=== PATIENT | male | born 1970 | race African-American/Black ===

== ENCOUNTER 2020-01-27 16:30 | Emergency (ER) | payer OTHER, SELFPAY ==
[2020-01-27 16:56] VITALS: BP 126/75; PULSE 84; RESP 16; TEMP 36.6; O2SAT 100
--- NOTE | 2020-01-27 16:59 | ED.URI ---
HPI - URI/Sore Throat General Chief Complaint: Upper Respiratory Infection Stated Complaint: cold/cough/runny nose Time Seen by Provider: 01/27/20 17:06 Source: patient and RN notes reviewed Mode of arrival: ambulatory Limitations: no limitations History of Present Illness HPI Narrative: 49-year-old male presents with concern for cough, runny nose, postnasal drainage that started today. He denies fever, aches, chills, sore throat, headache. 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 He denies any recent travel, immunocompromised state, does not live incongruent living. MD elicited complaint: cough Related Data Home Medications Medication Instructions Recorded Confirmed ibuprofen 800 mg PO Q6H PRN 01/27/20 01/27/20 Allergies Allergy/AdvReac Type Severity Reaction Status Date / Time No Known Allergies Allergy Unverified 01/27/20 16:47 Review of Systems Review of Systems: Narrative: CONSTITUTIONAL: Denies malaise, chills, sweats, or fever. EYES: Denies visual changes, redness, or discharge. ENT: Reports rhinorrhea, congestion. Denies sinus pain, otalgia and sore throat. CARDIOVASCULAR: Denies chest pain, palpitations, or edema. RESPIRATORY: Reports cough. Denies dyspnea. GASTROINTESTINAL: Denies abdominal pain, nausea, vomiting, diarrhea SKIN: Denies rash or itching. MUSCULOSKELETAL: Denies myalgia. NEUROLOGIC: Denies headache. All systems reviewed & are unremarkable except as noted in HPI and below PMFSH Social History Social History Gender identity (if verbalized by the patient): Male Comments At time of signature, agree with nursing past medical, surgical, social and family history. There is no relevant family history pertinent to the presenting complaint Exam Narrative: Exam Narrative: GENERAL: Well-appearing, well-nourished, and in no acute distress. HEAD: Normocephalic EYES: PERRLA, conjunctivae clear ENT: Nares clear, turbinates edematous and erythematous, clear discharge. Mucous membranes moist. TM pearly devine with dull light reflex bilaterally; no tragal tenderness. Oropharynx not erythematous without lesions. Tonsils not enlarged and without exudate, no drooling, no hoarseness, no trismus, uvula midline. NECK: Supple. No lymphadenopathy CHEST: Clear to auscultation, breath sounds equal. No wheezing, rhonchi, rales, or stridor. No respiratory distress, speaks in full sentences. HEART: Regular rate and rhythm. No murmur heard. SKIN: Warm, dry, no rash. NEURO: Alert and oriented x3. PSYCH: Normal mood and affect Course Course Emergency Course: Patient is aware of diagnosis, understands and agrees to treatment plan. Anticipatory guidance given. Patient agrees to follow-up as directed and is aware of reasons to seek care at the emergency department. Portions of this record may have been created with voice recognition software Vital Signs Vital signs: Vital Signs Temperature 97.8 F 01/27/20 16:56 Pulse Rate 84 01/27/20 16:56 Respiratory Rate 16 01/27/20 16:56 Blood Pressure 126/75 01/27/20 16:56 Pulse Oximetry 100 01/27/20 16:56 Temperature 97.8 F 01/27/20 16:56 Pulse Rate 84 01/27/20 16:56 Respiratory Rate 16 01/27/20 16:56 Blood Pressure 126/75 01/27/20 16:56 Pulse Oximetry 100 01/27/20 16:56 Reviewed. MDM - URI/Sore Throat MDM Narrative Medical decision making narrative: Differential diagnosis considered: Strep pharyngitis, allergic rhinitis, upper respiratory tract infection, sinusitis, rhinosinusitis, nasopharyngitis. viral pharyngitis, otitis media, otitis externa, pneumonia, bronchitis, viral cough syndrome, viral syndrome, and influenza. Exam findings show no acute concerns or changes; patient is non-toxic appearing and is in no distress. Patient is appropriate for outpatient treatment and follow-up. Critical Care Time Critical Care Time Critical Care Time: No Discharge Plan Discharge Clinical Impression: Upper respiratory infection Qualifiers: URI type
== END 2020-01-27 17:22 | disposition home or self-care (01) ==
PROVIDERS: Emergency Provider Nurse Practitioner
DX: J06.9 Acute upper respiratory infection, unspecified (principal)
CPT/HCPCS: 99213; G0463

== ENCOUNTER 2020-10-13 08:02 | Emergency (ER) | payer OTHER, SELFPAY ==
--- NOTE | ~2020-10-13 | CT_ITS ---
EXAMINATION: CT abdomen pelvis w con DATE: 10/13/2020 09:01 INDICATION: Left-sided abdominal pain for 2 days TECHNIQUE: Computed tomography (CT) of the abdomen and pelvis was performed with 100 cc Omnipaque 350 intravenous contrast. The dose-length product was 877.53 mGy-cm. Automated exposure control and iter ative reconstruction technique were employed. COMPARISON: None. FINDINGS: Lung bases are unremarkable. Heart size normal. No significant vascular abnormality. There are mildly enlarged pelvic lymph nodes along the common and external iliac chains. There is inflammat ion adjacent to the distal descending/proximal sigmoid colon, most likely epiploic appendagitis. Dive rticulitis less favored. Fat-containing periumbilical and umbilical hernias. The gallbladder has an l oculated appearance, possibly normal gallbladder folds. Consider correlation with ultrasound. No defi nite gallstones. Fatty infiltration of the liver. The spleen, pancreas, adrenal glands and right kidney are unremarkab le. Stable partially calcified 9 mm left renal mass, likely benign. Nonobstructive bowel gas pattern. No free air or free fluid. IMPRESSION: 1. Inflammation adjacent to the distal colon, most likely epiploic appendagitis rather than diverticu litis. 2: Enlarged pelvic lymph nodes, nonspecific, although most likely reactive. 3: Multiloculated appearance of the gallbladder which may be due to normal folds. Consider correlatio n with ultrasound. No significant surrounding inflammatory change. Reviewed, dictated and finalized at location B. [facility] IMPRESSION: 1. Inflammation adjacent to the distal colon, most likely epiploic appendagitis rather than diverticulitis. 2: Enlarged pelvic lymph nodes, nonspecific, although most likely reactive. 3: Multiloculated appearance of the gallbladder which may be due to normal fold s. Consider correlation with ultrasound. No significant surrounding inflammator y change.
[2020-10-13 08:13] VITALS: BP 138/85; PULSE 79; RESP 16; TEMP 36.5; O2SAT 100
--- NOTE | 2020-10-13 08:14 | ED.GENADULT ---
HPI - General Adult General Chief complaint: Abdominal Pain Stated complaint: Left Flank Pain Time Seen by Provider: 10/13/20 08:04 Source: RN notes reviewed History of Present Illness HPI narrative: Patient presents emergency department from home for left-sided abdominal pain. Patient states pain began 2 days ago. Pain is located left abdomen does not radiate described as aching in nature. Denies any fevers or chills chest pain shortness of breath nausea vomiting diarrhea or any other symptoms. States he is taken no previous medication for the pain. States nothing makes the pain better or worse Related Data Allergies Allergy/AdvReac Type Severity Reaction Status Date / Time No Known Allergies Allergy Verified 10/13/20 08:25 Review of Systems Review of Systems: Narrative: Gen.: Denies fevers or chills ENT: Denies congestion Respiratory: Denies shortness of breath or cough CV: Denies chest pain or palpitations GI: See HPI denies burning, urgency, frequency or hematuria Musculoskeletal: Denies back pain or muscle pain Neuro: Denies numbness, tingling, weakness or focal weakness Skin: Denies rash Except as documented, all other systems reviewed and negative [facility] Past Medical History Medical History (Updated 10/13/20 @ 09:30 by Garrett Fernandez DO) Patient denies significant medical history Social History Social History (Updated 10/13/20 @ 08:15 by Garrett Fernandez DO) Smoking status: Never smoker Gender identity (if verbalized by the patient): Male Exam Narrative: Exam Narrative: APPEARANCE: No acute distress, nontoxic, resting in bed HEENT: Normocephalic, atraumatic, OMM RESPIRATORY: No respiratory distress, clear to auscultation bilaterally with no rhonchi wheezing or rales CARDIOVASCULAR: RRR s murmur ABDOMINAL: Soft, nondistended, tender palpation in left upper quadrant left lower quadrant no tenderness right upper quadrant right lower quadrant no rebound or guarding MUSCULOSKELETAl: Moves all extremities. No clubbing, cyanosis or edema. NEURO: Awake and alert. Following commands, speech normal, no focal deficits SKIN:: Warm, dry. Normal Color PSYCHIATRIC: Normal affect/mood Course Course Emergency Course: Patient states that they are feeling much better at this time. States abdominal pain has improved. Repeat abdominal exam shows the patient's abdomen to be soft and nontender. Discussed with patient results of workup and diagnosis. Discussed need for follow-up with primary care physician, reasons to return to the emergency department in proper use of medication. Patient understands and agrees to current treatment plan Vital Signs Vital signs: Vital Signs Temperature 97.7 F 10/13/20 08:13 Pulse Rate 79 10/13/20 08:13 Respiratory Rate 16 10/13/20 08:13 Blood Pressure 138/85 10/13/20 08:13 Pulse Oximetry 100 10/13/20 08:13 Temperature 97.7 F 10/13/20 08:13 Pulse Rate 79 10/13/20 08:13 Respiratory Rate 16 10/13/20 08:13 Blood Pressure 138/85 10/13/20 08:13 Pulse Oximetry 100 10/13/20 08:13 Medical Decision Making MDM Narrative Medical decision making narrative: Patient's abdomen is soft without significant pain or signs of surgical abdomen on serial exams. Lab and x-ray evaluations are reviewed and patient is felt to be a reasonable candidate for outpatient management. Patient was instructed as to limitations of x-ray and laboratory evaluation and encouraged to return to ED or primary physician for repeat exam in 12 hours if continued or worsening pain patient with likely epiploic appendagitis however question of diverticulitis will start on short course of antibiotics Vital Signs Vital Signs: Vital Signs Temperature 97.7 F 10/13/20 08:13 Pulse Rate 79 10/13/20 08:13 Respiratory Rate 16 10/13/20 08:13 Blood Pressure 138/85 10/13/20 08:13 Pulse Oximetry 100 10/13/20 08:13 Temperature 97.7 F 10/13/20 08:13 Pulse Rate 79 10/13/20 08:
[2020-10-13 08:28] LABS: Basophils Percent Auto 0.7 % (0.2-1.2); Eosinophils Absolute Auto 0.1 K/mm3 (0-0.3); Eosinophils Percent Auto 2.6 % (0-4.4); Hematocrit 37.4 % (42.0-52.0); Hemoglobin 12.5 g/dL (14.0-18.0); Immature Granulocyte Absolute 0.03 K/mm3 (0.00-0.031); Immature Granulocyte Percent A 0.7 % (0-0.5); Lymphocytes Absolute Auto 2.38 K/mm3 (0.9-3.2); Lymphocytes Percent Auto 52.2 % (18.3-44.2); Mean Corpuscular HGB Conc 33.4 g/dl (32-36); Mean Corpuscular Hemoglobin 27.1 pg (26-34); Mean Platelet Volume 9.2 fl (7.4-10.4); Monocytes Absolute Auto 0.5 K/mm3 (0.1-0.6); Monocytes Percent Auto 10.5 % (2.6-8.5); Neutrophils Absolute Auto 1.5 K/mm3 (1.3-6.7); Neutrophils Percent Auto 33.3 % (45.5-73.1); Platelet Count Result 192 k/mm3 (150-375); Red Blood Count 4.62 M/mm3 (4.6-6.20); Red Cell Distribution Width 12.7 % (11.5-14.5); White Blood Count 4.6 K/mm3 (4.5-10.0)
[2020-10-13] MEDS: KETOROLAC 30 MG/ML VIAL (*BKC) IV PUSH (08:28)
[2020-10-13] MEDS: SODIUM CHLORIDE 0.9% IV 1,000 ML 999 ML IV CONT (08:28)
[2020-10-13 08:36] LABS: Add Urine Microscopic? YES; Appearance Urine Clear (Clear); Bilirubin Urine Negative (Negative); Blood Urine 2+ (Negative); Color Urine Yellow (Yellow); Glucose Urine UA Negative (Negative); Ketones Urine Negative (Negative); Leukocyte Esterase Ur Negative LEU/UL (Negative); Mucus Urine Rare /lpf; Nitrate Urine Negative (Negative); Protein Urine Negative (Negative); Specific Grav Ur 1.019 (1.001-1.035); WBC Urine 0-3 /hpf
[2020-10-13 08:40] LABS: Alanine Aminotransferase 28 U/L (4-50); Albumin Level 4.3 g/dL (3.5-5.1); Alkaline Phosphatase 79 U/L (38-126); Anion Gap 9 mmol/L (8-16); Aspartate Amino Transferase 35 U/L (17-59); Bilirubin,Total 0.3 mg/dL (0.2-1.3); Blood Urea Nitrogen 12 mg/dL (9-20); Calcium 8.9 mg/dL (8.4-10.2); Carbon Dioxide 27 mmol/L (22-30); Chloride 104 mmol/L (98-107); Estimated CRCL calculation 94 ml/min; Estimated Glomerular Filt Rate > 60; Glucose 96 mg/dL (75-110); Lipase 107 U/L (23-300); Potassium 3.6 mmol/L (3.4-5.0); Sodium 140 mmol/L (137-145)
[2020-10-13 08:44] LABS: Atypical Lymphocytes Present; Platelet Estimate Adequate (Adequate)
[2020-10-13 10:18] VITALS: BP 104/79; PULSE 70; RESP 16
[2020-10-13] MEDS: AMOXICILLIN/CLAVULANATE K 875-125 MG TAB 1 TABLET PO (10:18)
== END 2020-10-13 10:13 | disposition home or self-care (01) ==
PROVIDERS: Emergency Provider Emergency Medicine
DX: K63.89 Other specified diseases of intestine (principal)
CPT/HCPCS: 36415; 74177; 80053; 81001; 83690; 85025; 96361; 96374; 99284; A9270; J1885; J7030; Q9967

== ENCOUNTER 2022-06-02 08:53 | Emergency (ER) | payer OTHER, SELFPAY ==
[2022-06-02 09:03] VITALS: BP 122/78; PULSE 72; RESP 16; TEMP 36.9; O2SAT 99
--- NOTE | 2022-06-02 09:15 | ED.NAVMDI ---
HPI - Nausea/Vomiting/Diarrhea General Chief complaint: Nausea/Vomiting/Diarrhea Stated complaint: n/v/d Time Seen by Provider: 06/02/22 09:16 Source: patient Mode of arrival: ambulatory Limitations: no limitations History of Present Illness HPI Narrative: 51-year-old male presents with complaint of nausea vomiting diarrhea, fatigue that started last night while at work. States that he had to leave work early. Is able to keep down liquids. States that he tried to eat dinner last night, something spicy, and it made symptoms worse. Unable to go to work today due to still feeling sick. I would not authorize something that you can give me to help me feel better . Denies abdominal pain. Refusing COVID and influenza testing. All systems reviewed and negative except as noted above. Related Data Allergies Allergy/AdvReac Type Severity Reaction Status Date / Time No Known Allergies Allergy Verified 06/02/22 09:05 Review of Systems Review of Systems: CONSTITUTIONAL: Denies fever, chills, or sweats. EYES: Denies visual changes, redness, or discharge. ENT: Denies rhinorrhea, congestion, sore throat, or otalgia. CARDIOVASCULAR: Denies chest pain, palpitations, or edema. RESPIRATORY: Denies cough or dyspnea. GASTROINTESTINAL: Denies abdominal pain. Reports nausea, vomiting, or diarrhea. GENITOURINARY: Denies dysuria or hematuria. SKIN: Denies rash or itching. MUSCULOSKELETAL: Denies back pain, joint pain, or myalgia. NEUROLOGIC: Denies headache, numbness, or weakness. PSYCHIATRIC: Denies anxiety or depression. All other systems reviewed are negative, except as documented in HPI. PMFSH Past Medical History Medical History (Updated 06/02/22 @ 09:22 by Shanna Sargent NP) Patient denies significant medical history Social History Social History (Updated 10/13/20 @ 08:15 by Garrett Fernandez DO) Smoking status: Never smoker Gender identity (if verbalized by the patient): Male Comments At time of signature, agree with nursing past medical, surgical, social and family history. There is no relevant family history pertinent to the presenting complaint. Exam Narrative: GENERAL: This is a well-nourished, well-developed patient, in no apparent distress. HEAD: normocephalic, atraumatic. EYES: PERRL. Sclera clear/white. Vision is grossly intact. EARS: External ears normal NOSE: External nose normal complaints NECK: Neck supple, non-tender without lymphadenopathy, masses or thyromegaly. CARDIOVASCULAR: Regular rate and rhythm without murmurs, gallops, or rubs. RESPIRATORY: Clear to auscultation. Breath sounds equal bilaterally. No wheezes, rales, or rhonchi. GASTROINTESTINAL: Abdomen soft, non-tender, nondistended. Bowel sounds are active. No hepato-splenomegaly, or palpable masses. No guarding. SKIN: warm, Dry, intact with no suspicious lesions or rash, good texture and turgor. NEURO: awake, alert, and oriented to person, place and time. There were no obvious focal neurologic abnormalities. EXTREMITIES: No joint tenderness, effusion, or edema noted. Course Course Level of Care: Express Care Visit Vital Signs Vital signs: Vital Signs Temperature 36.9 C 06/02/22 09:03 Pulse Rate 72 06/02/22 09:03 Respiratory Rate 16 06/02/22 09:03 Blood Pressure 122/78 06/02/22 09:03 Pulse Oximetry 99 06/02/22 09:03 Oxygen Delivery Room Air 06/02/22 09:03 Temperature 36.9 C 06/02/22 09:03 Pulse Rate 72 06/02/22 09:03 Respiratory Rate 16 06/02/22 09:03 Blood Pressure 122/78 06/02/22 09:03 Pulse Oximetry 99 06/02/22 09:03 Oxygen Delivery Room Air 06/02/22 09:03 Reviewed MDM - Nausea/Vomiting/Diarrhea MDM Narrative Medical decision making narrative: Patient is aware of diagnosis, understands and agrees to treatment plan. Anticipatory guidance given. Patient agrees to follow-up as directed and is aware of reasons to seek care at the emergency department. Portions of this record may
== END 2022-06-02 09:32 | disposition home or self-care (01) ==
PROVIDERS: Emergency Provider Nurse Practitioner Family
DX: A08.4 Viral intestinal infection, unspecified (principal)
CPT/HCPCS: 99213; G0463

== ENCOUNTER 2023-10-31 10:21 | Emergency (ER) | payer OTHER, SELFPAY ==
[2023-10-31 10:33] VITALS: BP 133/78; PULSE 87; RESP 16; TEMP 37.1; O2SAT 98
--- NOTE | 2023-10-31 12:35 | ED.GENADULT ---
HPI - General Adult General Chief complaint: Skin/Abscess/Foreign Body Stated complaint: bite to back/rash Time Seen by Provider: 10/31/23 12:01 History of Present Illness HPI narrative: 52-year-old male presenting emergency department for evaluation of a rash to his left lower back. Patient states that at approximately 4:00 p.m. yesterday he had onset of the back pain. Patient denies any prior history of shingles. Patient states he did have an upper respiratory infection with fever approximately 2 weeks ago. Related Data Home Medications Medication Instructions Recorded Confirmed phentermine 15 mg capsule mg 10/31/23 Allergies Allergy/AdvReac Type Severity Reaction Status Date / Time No Known Allergies Allergy Verified 06/02/22 09:05 Review of Systems Review of Systems: All systems reviewed & are unremarkable except as noted in HPI and below PMFSH Past Medical History Medical History (Updated 10/31/23 @ 12:43 by Harshil Bai MD) Patient denies significant medical history Social History Social History (Updated 10/13/20 @ 08:15 by Garrett Fernandez DO) Smoking status: Never smoker Gender identity (if verbalized by the patient): Male Exam Narrative: APPEARANCE: Well appearing, no pain, no distress, well-nourished. HEAD: normocephalic, atraumatic. EYES: PERRLA/EOMI, conjunctivae clear. NOSE: Normal no drainage EARS:TMS clear with good light reflex. THROAT: Pharynx clear, no exudate. NECK: Supple. No adenopathy, no masses. RESPIRATORY: Airway patent, respirations nonlabored. Clear to auscultation bilaterally, no rales, rhonchi, wheezing. CARDIOVASCULAR: Regular rate and rhythm without murmurs rubs or gallops. ABDOMINAL: Soft, nontender, nondistended, normal bowel sounds MUSCULOSKELETAL: Moves all extremities. Strength/ROM intact, No edema, No calf tenderness. NEURO: Alert. Cranial nerves II through XII intact. Good gait. Good coordination SKIN: Vesicular rash on lumbar spine on the left, rash does not cross the midline to the right. PSYCHIATRIC: Normal affect/mood. Course Course Emergency Course: 52-year-old male presenting to the emergency department for evaluation of a rash his left lumbar spine that radiates to his left flank. Rash is consistent with shingles. Patient was started on antivirals and provided medication for pain control. Patient was updated results of his workup and patient was courage of close follow-up with his primary care physician. All questions and concerns were addressed patient was comfortable with the plan for discharge and close follow-up Vital Signs Vital signs: Vital Signs Temperature 98.7 F 10/31/23 10:33 Pulse Rate 87 10/31/23 10:33 Respiratory Rate 16 10/31/23 10:33 Blood Pressure 133/78 10/31/23 10:33 Pulse Oximetry 98 10/31/23 10:33 Temperature 98.7 F 10/31/23 10:33 Pulse Rate 87 10/31/23 10:33 Respiratory Rate 16 10/31/23 10:33 Blood Pressure 133/78 10/31/23 10:33 Pulse Oximetry 98 10/31/23 10:33 Medical Decision Making Vital Signs Vital Signs: Vital Signs Temperature 98.7 F 10/31/23 10:33 Pulse Rate 87 10/31/23 10:33 Respiratory Rate 16 10/31/23 10:33 Blood Pressure 133/78 10/31/23 10:33 Pulse Oximetry 98 10/31/23 10:33 Temperature 98.7 F 10/31/23 10:33 Pulse Rate 87 10/31/23 10:33 Respiratory Rate 16 10/31/23 10:33 Blood Pressure 133/78 10/31/23 10:33 Pulse Oximetry 98 10/31/23 10:33 Discharge Plan Discharge Clinical Impression: Shingles Patient Disposition: Home, Self-Care Condition: Stable Instructions: Antibiotic Form, Liz[place] (ED) Additional Instructions: Tylenol ibuprofen for pain control. Replace Tylenol with [place] as needed for additional pain control. Antivirals as directed until completed. Have close follow-up with your primary care physician. Prescriptions: New valacyclovir 1 gram tablet 1,000 mg PO Q12H 7 Days Q
[2023-10-31] MEDS: HYDROcodone/acetaminophen (*CRX) 5-325 MG TABLET 1 TAB PO (12:57)
[2023-10-31] MEDS: valACYclovir HCL 500 MG TABLET 1000 MG PO (12:58)
== END 2023-10-31 13:02 | disposition home or self-care (01) ==
PROVIDERS: Emergency Provider Emergency Medicine
DX: B02.9 Zoster without complications (principal)
CPT/HCPCS: 99283; A9270

== ENCOUNTER 2024-11-14 12:25 | Emergency (ER) | payer OTHER, SELFPAY ==
[2024-11-14 12:44] VITALS: BP 127/82; PULSE 98; RESP 16; TEMP 37.1; O2SAT 98
--- NOTE | 2024-11-14 12:50 | ED_ITS ---
HPI - General Adult General Chief complaint: Dental/Oral Stated complaint: allergic reaction to prescription meds Time Seen by Provider: 11/14/24 12:50 Source: patient, RN notes reviewed and old records reviewed Mode of arrival: ambulatory Limitations: no limitations History of Present Illness HPI narrative: Patient presents with complaints of swelling to the bottom lip. Patient reports that he began to feel tingling and pain to the bottom lip yesterday, awakened this morning to find the bottom lip was swollen and had small blisters in clusters. When asked, he does admit that the lip feels very similar to the way that his skin felt when he had shingles. When patient presented, he was worried that he was having an allergic reaction. Patient was prescribed a Z-Eduardo by a different provider yesterday for sinusitis symptoms. He took 1st does last night, 2nd dose this morning. Did not have lip swelling until this morning, so is very concerned that he is having an allergic reaction. He denies any shortness of breath or wheezing. He is able to speak in complete sentences without difficulty there is no swelling to the tongue or the throat. No drooling. Only spot that is swollen is the bottom lip, left side more so than right. He denies any injury or trauma Related Data Home Medications ?Medication ?Instructions ?Recorded ?Confirmed ?Last Taken ?Type phentermine 15 mg capsule mg 10/31/23 Unknown History bictegravir 50 mg-emtricitabine tablet PO 11/14/24 Unknown History 200 mg-tenofovir alafenam 25 mg tablet (Biktarvy) darunavir 800 mg-cobicistat 150 mg tablet 11/14/24 Unknown History tablet (Prezcobix) Allergies Allergy/AdvReac Type Severity Reaction Status Date / Time No Known Allergies Allergy Verified 11/14/24 12:46 Review of Systems Review of Systems: All systems reviewed & are unremarkable except as noted in HPI and below Constitutional: Constitutional: Reports no additional constitutional complaints and Reports headache(s) ENT: Reports system reviewed and no additional complaints, except as documented, Reports nasal congestion, Reports nasal discharge, Reports post nasal drip, Reports sinus pain and Reports sinus pressure Cardiovascular: Cardiovascular: Reports no additional cardiovascular complaints Respiratory: Respiratory: Reports no additional respiratory complaints Gastrointestinal: Gastrointestinal: Reports no additional gastrointestinal complaints PMFSH Past Medical History Medical History Patient denies significant medical history Social History Social History Smoking status: Never smoker Gender identity (if verbalized by the patient): Male Comments At the time of my signature, I reviewed and agree with the nursing past medical, surgical, social, and family history. There is no relevant family history pertinent to the patient complaint. Exam Const: General: cooperative, no acute distress, alert and awake Orie ntation/consciousness: oriented to person, oriented to place and oriented to time HENMT: Head: normal to inspection Mouth: Yes moist mucous membranes, No drooling, Yes lip abnormal (Lower lip swelling, left greater than right. Small vesicles noted) and No tongue abnormal Throat: posterior oropharynx normal Resp: Effort & Inspection: normal respiratory effort and able to speak in complete sentences Auscultation: clear to auscultation bilaterally, no crackles, no rales, no rhonchi and no wheezes Cardio: Palpation: normal PMI Rate: regular rate Rhythm: regular rhythm Heart sounds: S1 normal heart sound present and S2 normal heart sound present Neuro: General: oriented to person, oriented to place and oriented to time Cranial nerves: Yes CN's II-XII intact bilaterally Psych: Appearance: grossly normal Thought process: Normal thought process present Insight: Good insight present (Psych) Judgement: Good judgement present (Psych) Course Course Level of Care: Express Care Visit Vital Signs Vital signs: Vital Signs Temperature 98.7 F 11/14/24 12:44 Pulse Rate 98 11/14/24 12:44 Respiratory Rate 16 11/14/24 12:44 Blood Pressure 127/82 11/14/24 12:44 Pulse Oximetry 98 11/14/24 12:44 Oxygen Delivery Room Air 11/14/24 12:44 Temperature 98.7 F 11/14/24 12:44 Pulse Rate 98 11/14/24 12:44 Respiratory Rate 16 11/14/24 12:44 Blood Pressure 127/82 11/14/24 12:44 Pulse Oximetry 98 11/14/24 12:44 Oxygen Delivery Room Air 11/14/24 12:44 Reviewed Medical Decision Making MDM Narrative Medical decision making narrative: Given clinical presentation, not leaning towards allergic reaction as etiology of symptoms, but cannot completely excluded either. Patient advised to stop azithromycin, will start doxycycline instead. History and exam are more consistent with HSV. Patient is HIV positive and not taking medications as prescribed. He is not in any distress, including respiratory distress. No drooling or stridor. Able to laugh and speaking complete sentences without difficulty. Will prescribe azithromycin. A dose of Benadryl and a dose of Pepcid were given in clinic, patient will be advised to continue this for at least 24 hours or until swelling subsides Discharge instructions reviewed with patient, as well as provided in writing per nursing staff. The instructions also include specific and strict return/GO TO THE ER as well as f/u information. All questions have been answered, and the patient deny any further questions with discharge and discharge plan. Some parts of this dictation were generated by voice recognition software and may contain typographical and/or grammatical inaccuracies. Differential Diagnosis Differential Diagnosis: Allergic reaction, HSV, trauma Medical Records Medical records reviewed: Yes I reviewed the external patient's medical records. Vital Signs Vital Signs: Vital Signs Temperature 98.7 F 11/14/24 12:44 Pulse Rate 98 11/14/24 12:44 Respiratory Rate 16 11/14/24 12:44 Blood Pressure 127/82 11/14/24 12:44 Pulse Oximetry 98 11/14/24 12:44 Oxygen Delivery Room Air 11/14/24 12:44 Temperature 98.7 F 11/14/24 12:44 Pulse Rate 98 11/14/24 12:44 Respiratory Rate 16 11/14/24 12:44 Blood Pressure 127/82 11/14/24 12:44 Pulse Oximetry 98 11/14/24 12:44 Oxygen Delivery Room Air 11/14/24 12:44 reviewed Lab Data Lab results reviewed: Yes I reviewed the patient's lab results. Lab results narrative: reviewed Discharge Plan Discharge Clinical Impression: HSV (herpes simplex virus) infection Patient Disposition: Home, Self-Care Condition: Stable Instructions: Antibiotic Form, Oral Herpes Infection (ED), Allergies (ED) Additional Instructions: Discontinue azithromycin. Start doxycycline. Start Valtrex. Follow with primary care provider. Emergency department for new or worse symptoms. Patient Language: [place] Islander Prescriptions: New valacyclovir [Valtrex] 1 gram tablet 1,000 mg PO Q12H Qty: 20 0RF doxycycline hyclate 100 mg tablet 100 mg PO BID Qty: 14 0RF hydroxyzine HCl 50 mg tablet 50 mg PO TID PRN (Reason: itching) Qty: 20 0RF famotidine [Pepcid] 40 mg tablet 40 mg PO DAILY Qty: 7 0RF No Action Prezcobix 800-150 mg-mg tablet Biktarvy 50-200-25 mg tablet PO phentermine 15 mg capsule hydrocodone-acetaminophen 5-325 mg tablet 1 tablet PO Q12H PRN (Reason: pain) Qty: 14 0RF Follow-up/Referrals: Chilo,Ashanti Lamas MD [Primary Care Provider] - Stand Alone Forms: Work/School Release IP Time of Disposition: 13:18
[2024-11-14] MEDS: diphenhydrAMINE HCl CAP 25 MG CAPSULE 50 MG PO (13:06)
[2024-11-14] MEDS: FAMOTIDINE 20 MG TABLET PO (13:07)
[2024-11-20 15:08] LABS: Source NOT GIVEN
== END 2024-11-14 13:25 | disposition home or self-care (01) ==
PROVIDERS: Emergency Provider Nurse Practitioner Family; PCP Family Medicine
DX: B00.9 Herpesviral infection, unspecified (principal)
CPT/HCPCS: 87140; 87255; 99213; A9270; G0463

== ENCOUNTER 2024-11-15 08:33 | Emergency (ER) | payer OTHER, SELFPAY ==
[2024-11-15 08:39] VITALS: BP 137/88; PULSE 96; RESP 20; TEMP 36.2; O2SAT 98
--- NOTE | 2024-11-15 11:17 | ED.GENADULT ---
HPI - General Adult General Chief complaint: Recheck/Abnormal Lab/Rx Stated complaint: shingles recheck Time Seen by Provider: 11/15/24 11:10 Source: patient and family Mode of arrival: ambulatory Limitations: no limitations History of Present Illness HPI narrative: 54 years old male with history of HIV, came to the ED with his complaining of lips pain mainly of the lower lip and swelling. Patient is telling me that he had flu-like symptoms in the form of body aches, chills, nausea and vomiting and diarrhea started on November 05, 2024, was seen at urgent care 3 days ago and was started on Z-Eduardo, workup yesterday with swallowing lips mainly lower 1, went to urgent care again and was diagnosed of possible shingles and discharged on antibiotic and Valtrex. Came to the ED today telling me that still having pain in his lower lip and slight difficulty swallowing. He denied shortness of breath or chest pain or headache or fever or chills. Related Data Home Medications ?Medication ?Instructions ?Recorded ?Confirmed ?Last Taken ?Type phentermine 15 mg capsule mg 10/31/23 Unknown History bictegravir 50 mg-emtricitabine tablet PO 11/14/24 Unknown History 200 mg-tenofovir alafenam 25 mg tablet (Biktarvy) darunavir 800 mg-cobicistat 150 mg tablet 11/14/24 Unknown History tablet (Prezcobix) Allergies Allergy/AdvReac Type Severity Reaction Status Date / Time azithromycin Allergy Severe Swelling Verified 11/15/24 08:43 of Lip/Tongue/Throat Review of Systems Review of Systems: All systems reviewed & are unremarkable except as noted in HPI and below PMFSH Past Medical History Medical History Patient denies significant medical history Social History Social History Smoking status: Never smoker Gender identity (if verbalized by the patient): Male Exam Narrative: General appearance: Well-developed, well-nourished Skin: Normal color Head: Normocephalic, nontraumatic Eyes: Clear conjunctiva ENT: Oropharynx erythema, ears normal, nose normal swollen lips mainly lower 1, which is red in color, slightly irritated, no blisters, no discharge, normal size tongue, Neck: Supple, nontender Chest and respiratory: Airway patent, no respiratory distress, no accessory muscle use Heart: Regular rate/rhythm Abdomen: Soft, nontender, no organomegaly, quiet bowel sounds Vascular: Normal peripheral pulses, normal capillary refill. Musculoskeletal: Normal range of motion, nontender back Neurologic: Alert and oriented ?3, [employer] is normal as tested, no gross motor deficit Course Vital Signs Vital signs: Vital Signs Temperature 36.2 C L 11/15/24 08:39 Pulse Rate 96 11/15/24 08:39 Respiratory Rate 20 11/15/24 08:39 Blood Pressure 137/88 11/15/24 08:39 Pulse Oximetry 98 11/15/24 08:39 Oxygen Delivery Room Air 11/15/24 08:39 Temperature 36.2 C L 11/15/24 08:39 Pulse Rate 96 11/15/24 08:39 Respiratory Rate 20 11/15/24 08:39 Blood Pressure 137/88 11/15/24 08:39 Pulse Oximetry 98 11/15/24 08:39 Oxygen Delivery Room Air 11/15/24 08:39 Medical Decision Making MDM Narrative Medical decision making narrative: Patient came with swollen lips 1 day after he using Z-Eduardo Vital signs are stable Physical examination as above Differential diagnosis include viral infection, and edema secondary to Z-Eduardo Today patient tested negative for strep, flu, RSV and COVID also tested negative for mono. Patient received epinephrine 0.3 IM then 0.5 IM, Solu-Medrol 125, Benadryl 50 mg IV was significant improvement. Differential Diagnosis Differential Diagnosis: As above Vital Signs Vital Signs: Vital Signs Temperature 36.2 C L 11/15/24 08:39 Pulse Rate 96 11/15/24 08:39 Respiratory Rate 20 11/15/24 08:39 Blood Pressure 137/88 11/15/24 08:39 Pulse Oximetry 98 11/15/24 08:39 Oxygen Delivery Room Air 11/15/24 08:39 Temperature 36.2 C L 11/15/24 08:39 Pulse Rate 96 11/15/24 08:39 Respiratory Rate 20 11/15/24 08:39 Blood Pressure 137/88 11/15/24 08:39 Pulse Oximetry 98 11/15/24 08:39 Oxygen Delivery Room Air 11/15/24 08:39 Critical Care Time Critical Care Time Critical Care Time: No Discharge Plan Discharge Clinical Impression: Angio-edema Patient Disposition: Home, Self-Care Condition: Stable Instructions: Angioedema (ED) Additional Instructions: Return if symptoms are worsening , call your family physician for appointment, take Tylenol as as needed for aches and pain, continue home medications. Do not take zithromycin Patient Language: [place] Prescriptions: New prednisone 20 mg tablet 40 mg PO DAILY 5 Days Qty: 10 0RF No Action Prezcobix 800-150 mg-mg tablet Biktarvy 50-200-25 mg tablet PO valacyclovir [Valtrex] 1 gram tablet 1,000 mg PO Q12H Qty: 20 0RF doxycycline hyclate 100 mg tablet 100 mg PO BID Qty: 14 0RF hydroxyzine HCl 50 mg tablet 50 mg PO TID PRN (Reason: itching) Qty: 20 0RF famotidine [Pepcid] 40 mg tablet 40 mg PO DAILY Qty: 7 0RF phentermine 15 mg capsule hydrocodone-acetaminophen 5-325 mg tablet 1 tablet PO Q12H PRN (Reason: pain) Qty: 14 0RF Follow-up/Referrals: Chilo,Ashanti Lamas MD [Primary Care Provider] -
[2024-11-15] MEDS: methylPREDNISolone SOD SUCC 125 MG VIAL IV PUSH (12:05)
[2024-11-15] MEDS: EPINEPHrine HCL INJ 1 MG/ML AMPUL 0.3 MG IM (12:05)
[2024-11-15] MEDS: diphenhydrAMINE HCl INJ 50 MG/ML VIAL IV PUSH (12:05)
[2024-11-15 12:39] VITALS: BP 148/92; PULSE 103; RESP 18; O2SAT 97
[2024-11-15 12:51] LABS: Strep Group A RT-PCR NOT DETECTED (Negative)
[2024-11-15 13:03] LABS: Influenza A QL RT-PCR Negative (Negative); Influenza B QL RT-PCR Negative (Negative); RSV RNA, RT-PCR Negative (Negative); SARS-CoV-2 RNA PCR Negative (Negative)
[2024-11-15 13:24] VITALS: BP 141/85; PULSE 88; RESP 20; O2SAT 97
[2024-11-15] MEDS: EPINEPHrine HCL INJ 1 MG/ML AMPUL 0.5 MG IM (13:29)
[2024-11-15] MEDS: KETOROLAC 30 MG/ML VIAL (*BKC) IV PUSH (13:30)
[2024-11-15 13:33] LABS: Monoscreen Negative (Negative); Negative Monotest Control Negative (Negative); Positive Monotest Control Positive (Positive)
[2024-11-15 14:02] VITALS: BP 131/88; PULSE 99; RESP 18; O2SAT 98
--- OUTSIDE RECORDS SUMMARY | 2024-11-22 10:49 | XMS_ITS | Encounter Summary ---
Author Organization [facility] Address [address] [place] [address] Care Team Providers Care Page Designer Name Role Phone Unavailable Primary Care Provider Unavailabl e Reason for Visit * Reason Comments Abscess c/o possible boil rt chin x 2 wks. Swelling, purulent drainage. No fever, chills. Encounter Details Date Type Department Care Team (Late st Contact Info) Description 11/29/2011 3:12 PM CINDER MAN - 11/29/2011 3:42 PM CINDER MAN Emergency ER at [facility] [address] [place] [id number] Jelani Brown MD [facility] [address] [facility] [facility] [place] [address] Cellulitis and abscess of face Discharge Disposition: Home or Self Care Social History Tobacco Use Types Packs/Day Years Used Date Smoking Tobacco: Some Days Alcohol Use Standard Drinks/Week Comments No 0 (1 standard drink = 0.6 oz pur e alcohol) Sex and Gender Information Value Date Recorded Sex Assigned at Not on file Gender Identity Not on file Sexual Orientation Not on file documented as of this encounter Last Filed Vital Signs Vital Sign Reading Time Taken Comments Blood Pressure 115/89 11/29/2011 3:20 PM CINDER MAN Pulse 80 11/29/2011 3:20 PM CINDER MAN Temperature 36.6 ??C (97.8 ??F) 11/29/2011 3:20 PM CS T Respiratory Rate 16 11/29/2011 3:20 PM CINDER MAN Oxygen Saturation 99% 11/29/2011 3:20 PM CINDER MAN Inhaled Oxygen Concentration - - Weight 88.5 kg (195 lb) 11/29/2011 3:20 PM CINDER MAN Height 182.9 cm (6') 11/29/2011 3:20 PM CINDER MAN Body Mass Index 26.45 11/29/2011 3:20 PM CINDER MAN documented in this encounter Discharge Instructions * Discharge Instructions* Jelani Brown MD - 11/29/2011 3:25 PM CINDER MAN Cellulitis Cellulitis is an infection of the skin and the tissue beneath it. The area is typically red and tender. It is caused by germs (bacteria) (usually staph or strep) that enter the body through cuts or sores. Cellulitis most commonly occurs in the arms and/or lower legs. HOME CARE INSTRUCTIONS ?? If you are given a prescription for antibiotics (medications which kill germs), take as directeduntil finished. ?? If the infection is on the arm or leg, keep the limb elevated as able. ?? Use a warm cloth several times per day to relieve pain and encourage healing. ?? See your caregiver for a recheck of the infected site in 2 days, or sooner if problems arise. ?? Only take [id number] or prescription medicines for pain, discomfort, or fever as directed by your caregiver. SEEK MEDICAL CARE IF: ?? An oral temperature above 102?? F (38.9?? C) develops, or as your caregiver suggests, not controlled by medication. ?? The area of redness is spreading, there are red streaks coming from the infected site, or if a part of the infection begins to turn dark in color. ?? The joint or bone underneath the infected skin becomes painful after the skin has healed. ?? The infection returns in the same or another area after it seems to have gone away. ?? A boil or bump swells up. This may be an abscess. ?? New, unexplained problems (symptoms) such as pain or fever develop. seek immediate medical care if: ?? You or your child feel drowsy or lethargic. ?? There is vomiting, diarrhea, or generalized malaise with muscle aches and pains. MAKE SURE YOU: ?? Understand these instructions. ?? Will watch your condition. ?? Will get help right away if you are not doing well or get worse. Document Released: 08/08/2006 Document Re-Released: 10/11/2009 ExitCare?? Patient Information ??2009 [employer]. ER MAN documented in this encounter Medications at Time of Discharge Medication Sig Dispensed Refills Start Date End Date doxycycline (VIBRAMYCIN) 100 MG capsule Take 1 Cap by mouth 2 times daily. 14 Cap 0 11/29/2011 01/13/2013 sulfamethoxazole-trimetho prim (BACTRIM DS; SEPTRA DS) 800-160 MG tablet Take 1 Tab by mouth every 12 hours for 7 days. For 7 days. 14 Tab 0 11/29/2011 12/06/2011 documented as of this encounter ED Notes * Jelani Brown MD - 11/29/2011 3:19 PM CST Provider contact with the patient: 11/29/2011 3:19 PM Dashawn Solitario [id number] [facility] EMERGENCY DEPT History Chief Complaint Patient presents with ??? Abscess c/o possible boil rt chin x 2 wks. Swelling, purulent drainage. No fever, chills. 3:19 PM At Bedside HPI Dashawn Solitario is a 41 y.o. male who presents to the ED complaining of a boil to his R-chin for thepast 2 weeks. Since it appeared this area has swollen in size and started to drain pus. The patientdenies any fever, chills, headache, or myalgias. Physician(s): Primary Care Physician - No primary provider on file. No past medical history on file. No past surgical history on file. No family history on file. History Social History ??? Marital Status: N/A Spouse Name: N/A Number of Children: N/A ??? Years of Education: N/A Occupational History ??? Not on file. Social History Main Topics ??? Smoking status: Not on file ??? Smokeless tobacco: Not on file ??? Alcohol Use: Not on file ??? Drug Use: Not on file ??? Sexually Active: Not on file Other Topics Concern ??? Not on file Social History Narrative ??? No narrative on file Review of Systems Review of Systems Constitutional: Negative. Negative for fever and chills. HENT: Negative. Respiratory: Negative. Negative for cough and shortness of breath. Musculoskeletal: Negative. Negative for myalgias. Skin: Negative. Boil to R-chin Neurological: Negative. Negative for dizziness and headaches. All other systems reviewed and are negative. Physical Exam Blood pressure 115/89, pulse 80, temperature 97.8 ??F, resp. rate 16, height 6' (1.829 m), weight 195 lb (88.451 kg), SpO2 99.00%. Physical Exam Nursing note and vitals reviewed. Constitutional: He is oriented to person, place, and time and well-developed, well-nourished, and in no distress. HENT: Head: Normocephalic and atraumatic. Right Ear: External ear normal. Left Ear: External ear normal. Nose: Nose normal. Mouth/Throat: Oropharynx is clear and moist. Eyes: Conjunctivae and EOM are normal. Pupils are equal, round, and reactive to light. Neck: Normal range of motion. Neck supple. No JVD present. Cardiovascular: Normal rate and regular rhythm. Pulmonary/Chest: Effort normal. Abdominal: He exhibits no distension. Musculoskeletal: Normal range of motion. Lymphadenopathy: He has no cervical adenopathy. Neurological: He is alert and oriented to person, place, and time. No cranial nerve deficit. Gait normal. Coordination normal. GCS score is 15. Skin: Skin is warm and dry. 0.5 x 0.5 cm abscess to R-cheek 3 x 2cm abscess to R-chin. Surrounding area of martínez crusting and erythema Psychiatric: Mood, memory, affect and judgment normal. Medications Current Outpatient Prescriptions Medication Sig Dispense Refill ??? doxycycline (VIBRAMYCIN) 100 MG capsule Take 1 Cap by mouth 2 times daily. 14 Cap 0 ??? sulfamethoxazole-trimethoprim (BACTRIM DS; SEPTRA DS) 800-160 MG tablet Take 1 Tab by mouth every 12 hours for 7 days. For 7 days. 14 Tab 0 Procedures Procedures EKG Interpretation Lab Interpretation Oxygen Saturation Interpretation The oxygen saturation level is: 99%. The patient was on Room Air for the saturation measurement. Oxygen saturation interpretation is Normal. No results found for this visit on 11/29/11. ED Course Progress Notes 3:25 PM Patient is feeling better and is comfortable with going home. Wound cultures have been obtained from the larger abscess. I have informed the patient of the current results and diagnosis. I have given instructions regarding the diagnosis as well as any return precautions. Patient has been provided with appropriate follow up instructions. Patient voices his understanding, and all questions and concerns have been addressed. Medical Decision Making I have reviewed the: Nursing Notes and Vitals. I have interpreted the following results: Oxygen Saturation. Clinical Impression Encounter Diagnosis Name Primary? Cellulitis and abscess of face New Prescriptions DOXYCYCLINE (VIBRAMYCIN) 100 MG CAPSULE Take 1 Cap by mouth 2 times daily. SULFAMETHOXAZOLE-TRIMETHOPRIM (BACTRIM DS; SEPTRA DS) 800-160 MG TABLET Take 1 Tab by mouth every 12 hours for 7 days. For 7 days. [facility] [[email or web address]] [address] [facility] [address] Call in 1 day Discharged to Home This note accurately reflects work and decisions made by me. Written by Pieter Miner, acting as scribe for Dr. Brown ER MAN documented in this encounter Miscellaneous Notes * Miscellaneous Scans - Document, Scanned - 12/12/2011 9:31 AM CST ER MAN documented in this encounter Plan of Treatment Not on file documented as of this encounter Procedures Procedure Name Priority Date/Time Associated Diagnosis Comments CULTURE WOUND STAT 11/29/2011 3:25 PM CINDER MAN documented in this encounter Results * CULTURE WOUND (11/29/2011 3:25 PM CINDER MAN) Result [facility] Comment: Final GRAM STAIN No organisms seen. CULTURE Light growth Normal skin marjorie LESION SPECIMEN / Unknown 11/29/2011 3:25 PM CINDER MAN 11/29/2011 3:30 PM CINDER MAN Narrative Resulting Agency Comment Performed By [facility];[address] [facility];[place] [address] Jelani Brown MD LAB - MICROBIOLOGY ORDERABLES [facility] [address] [place] [address] documented in this encounter Visit Diagnoses Diagnosis Cellulitis and abscess of face documented in this encounter
--- OUTSIDE RECORDS SUMMARY | 2024-11-22 10:49 | XMS_ITS | Patient Health Summary ---
Author Organization [facility] Address [address] [place] [address] Care Team Providers Care Buffing Wheel Raker Name Role Phone Pauly Kulkarni Primary [facility] Note from [facility],non-owned Affiliates and Associated Physician Practices is amultiple site organization consisting of ambulatory clinics and hospital sitesin [place], [place], [place] and [place]. This disclosure is being madepursuant to the Care Everywhere program and may not contain all information available regarding this patient. Last updated 18.[facility] Allergies No known active allergies Medications * Be aware that medications may not be up to date on this document. Alwaysverify current medications with the patient. * emtricitabine-tenofovir (TRUVADA) 200-300 MG tablet Take 1 Tab by mouth once daily. Indications: HIV Disease * ritonavir (NORVIR) 100 MG capsule Take 100 mg by mouth once daily. Indications: HIV * didanosine EC (VIDEX EC) 125 MG capsule Take 125 mg by mouth once daily. Indications: HIV * hydrocodone-acetaminophen (NORCO) 5-325 MG tablet(Started 01/15/2013) Take 1 Tab by mouth every 4 hours as needed. * darunavir (PREZISTA) 800 MG tablet(Started 01/15/2013) Take 1 Tab by mouth daily with breakfast. Active Problems Problem Noted Date Diagnosed Date Cellulitis 01/14/2013 Social History Tobacco Use Types Packs/Day Years Used Date Smoking Tobacco: Never Alcohol Use Standard Drinks/Week Comments No 0 (1 standard drink = 0.6 oz pur e alcohol) Sex and Gender Information Value Date Recorded Sex Assigned at Not on file Gender Identity Not on file Sexual Orientation Not on file Last Filed Vital Signs Vital Sign Reading Time Taken Comments Blood Pressure 104/65 01/15/2013 2:28 PM STEAM TABLE WORKER Pulse 76 01/15/2013 2:28 PM STEAM TABLE WORKER Temperature 36.7 ??C (98.1 ??F) 01/15/2013 2:28 PM CS T Respiratory Rate 16 01/15/2013 2:28 PM STEAM TABLE WORKER Oxygen Saturation 97% 01/15/2013 2:28 PM STEAM TABLE WORKER Inhaled Oxygen Concentration - - Weight 99.8 kg (220 lb) 01/13/2013 11:55 AM STEAM TABLE WORKER Height 182.9 cm (6') 01/13/2013 11:55 AM STEAM TABLE WORKER Body Mass Index 29.84 01/13/2013 11:55 AM STEAM TABLE WORKER Procedures * CULTURE WOUND+GRAM STAIN(Performed 01/14/2013) * CULTURE MRSA(Performed 01/14/2013) Performed for Abscess * CT NECK SOFT TISSUE W CONT(Performed 01/13/2013) Performed for Abscess * CULTURE BLOOD(Performed 01/13/2013) * CULTURE BLOOD(Performed 01/13/2013) * COMPREHENSIVE METABOLIC PANEL(Performed 01/13/2013) * CBC W AUTO DIFFERENTIAL(Performed 01/13/2013) * CULTURE WOUND(Performed 11/29/2011) Results * (ABNORMAL) CULTURE WOUND+GRAM STAIN (01/14/2013 2:42 PM STEAM TABLE WORKER) Culture Moderate Growth Staphylococcus aureus(A) 01/17/2013 7:02 AM [facility] Gram Stain Rare White blood cells 01/17/2013 7:02 AM [facility] Gram Stain No organisms seen 013 7:02 AM [facility] Miscellaneous samples (specimen) LESION SPECIMEN / Unknown 01/14/2013 2:42 PM STEAM TABLE WORKER 01/14/2013 2:55 PM STEAM TABLE WORKER Narrative Organism Antibiotic Method Susceptibility Staphylococcus aureus Ciprofloxacin SUNNY <=0.5: Susceptible Staphylococcus aureus Clindamycin SUNNY <=0.25: Susceptible Staphylococcus aureus Erythromycin SUNNY >=8: Resistant Staphylococcus aureus Gentamicin SUNNY <=0.5: Susceptible Staphylococcus aureus Inducible Clindamy jose Resistance SUNNY NEG: - Staphylococcus aureus Levofloxacin SUNNY <=0.12: Susceptible Staphylococcus aureus Linezolid SUNNY 1: Susceptible Staphylococcus aureus Oxacillin SUNNY <=0.25: Susceptible Staphylococcus aureus Tetracycline SUNNY <=1: Susceptible Staphylococcus aureus Trimethoprim-sulfa methoxazo le SUNNY <=10: Susceptible Staphylococcus aureus Vancomycin SUNNY <=0.5: Susceptible Comment:Methicillin suscepti ble Staphylococci are susceptible to oxacillin, nafcillin, cloxacillin,diclozacillin, flucloxacillin, beta lactam/betalactamase inhibitor combinations, cephalosporins including cefazolin and carbapenems. Bret Medina MD LAB - MICROBIOLOGY O RDERABLES Performing Organization Address [facility] Co de Phone Number [facility] [address] * CULTURE MRSA (01/14/2013 5:51 AM STEAM TABLE WORKER) [facility] Culture Negative for MRSA 01/15/2013 2:44 PM STEAM TABLE WORKER [facility] Miscellaneous samples (specimen) SPECIMEN FROM NASAL FOSSAE / Unknown 01/14/2013 5:51 AM STEAM TABLE WORKER 01/14/2013 6:34 AM STEAM TABLE WORKER Sandra Yanez MD LAB - MICROBIOLOGY O ALEX Performing Organization Address [facility] Co de Phone Number [facility] [address] [facility] [address] * CT SOFT TISSUE NECK WITH CONTRAST (01/13/2013 3:06 PM STEAM TABLE WORKER) Anatomical Region Laterality Modality Head Computed Tomogra phy 01/13/2013 3:13 PM STEAM TABLE WORKER Impressions 01/13/2013 3:13 PM STEAM TABLE WORKER EXTENSIVE CELLULITIS OVERLYING THE CHIN AND RIGHT HALF OF THE MANDIBLE MULTIFOCAL LYMPHADENOPATHY WHICH IS PRESUMABLY REACTIVE SPHENOID SINUS DISEASE Narrative 01/13/2013 3:13 [address] TABLE [address] CT neck with intravenous contrast CLINICAL INDICATION: Neck pain, neck swelling TECHNIQUE: Axial CT imaging from the skull base to the lung apices was performed following 80 mL Omnipaque 350 intravenous contrast administration. FINDINGS: There is extensive skin thickening and subcutaneous soft tissue swelling overlying the chin and right half of the mandible compatible with a cellulitis. No definite loculated or drainable fluid collections are seen. Multiple pathologically enlarged lymph nodes are noted in the submental region, submandibular regions, and lower cervical regions. These are presumably reactive. There is no evidence of acute fracture or bone destruction. There is moderate mucosal thickening within the ethmoid air cells. The mastoid air cells are clear. The parapharyngeal fat spaces are symmetric. The tonsillar and peritonsillar soft tissues are unremarkable. Configuration of the vocal cords is normal. The thyroid gland is normal in size. The vascular structures are unremarkable. The lung apices are clear. Procedure Note Ben Medina MD - 01/13/2013 CT neck with intravenous contrast CLINICAL INDICATION: Neck pain, neck swelling TECHNIQUE: Axial CT imaging from the skull base to the lung apices was performed following 80 mL Omnipaque 350 intravenous contrast administration. FINDINGS: There is extensive skin thickening and subcutaneous soft tissue swelling overlying the chin and right half of the mandible compatible with a cellulitis. No definite loculated or drainable fluid collections are seen. Multiple pathologically enlarged lymph nodes are noted in the submental region, submandibular regions, and lower cervical regions. These are presumably reactive. There is no evidence of acute fracture or bone destruction. There is moderate mucosal thickening within the ethmoid air cells. The mastoid air cells are clear. The parapharyngeal fat spaces are symmetric. The tonsillar and peritonsillar soft tissues are unremarkable. Configuration of the vocal cords is normal. The thyroid gland is normal in size. The vascular structures are unremarkable. The lung apices are clear. IMPRESSION EXTENSIVE CELLULITIS OVERLYING THE CHIN AND RIGHT HALF OF THE MANDIBLE MULTIFOCAL LYMPHADENOPATHY WHICH IS PRESUMABLY REACTIVE SPHENOID SINUS DISEASE Rhonda Guerreroi PA-C CT ORDERABLES * CULTURE BLOOD (01/13/2013 2:27 PM STEAM TABLE WORKER) Only the most recent of2 resultswithin the time period is included. Culture No Growth 01/19/2013 6:36 AM CDT [facility] Blood specimen (specimen) PERIPHERAL BLOOD / Unknown 01/13/2013 2:27 PM STEAM TABLE WORKER 01/13/2013 3:21 PM STEAM TABLE WORKER Rhonda Guerreroi PA-C LAB - MICROBIOLOGY ORDERABLES [facility] [address] [place] [address], [facility] * (ABNORMAL) CBC W AUTO DIFFERENTIAL (01/13/2013 1:39 PM STEAM TABLE WORKER) [facility] WBC 5.5 4.4 - 10.7 x10^9/L 01/13/2013 2:01 PM [facility] RBC 4.59 3.80 - 5.40 x10^12/L 01/13/2013 2:01 PM [facility] Hemoglobin 13.1 12.0 - 17.6 g/dL 01/13/2013 2:01 PM [facility] Hematocrit 37.9 35.2 - 51.7 % 01/13/2013 2:01 PM [facility] MCV 82.6 80.7 - 98.3 fl 01/13/2013 2:01 PM [facility] MCH 28.5 26.7 - 34.0 pg 01/13/2013 2:01 PM [facility] MCHC 34.6 30.8 - 35.9 gm/dL 01/13/2013 2:01 PM [facility] Platelet Count 232 153 - 416 x10^9/L 01/13/2013 2:01 PM [facility] RDW-CV 13.1 12.1 - 14.9 % 01/13/2013 2:01 PM [facility] Neutrophils % 43(L) 44 - 73 % 01/13/2013 2:01 PM [facility] Lymphocytes % 42 20 - 43 % 01/13/2013 2:01 PM [facility] Monocytes % 9 5 - 13 % 01/13/2013 2:01 PM [facility] Eosinophils % 6 0 - 6 % 01/13/2013 2:01 PM [facility] Basophils % 0 0 - 2 % 01/13/2013 2:01 PM [facility] Immature Granulocytes 0.2 0 - 1 % 01/13/2013 2:01 PM [facility] Neutrophil Absolute 2.39 x10^9/L 01/13/2013 2:01 PM [facility] Lymphocytes Absolute 2.31 1.07 - 3.94 x10^9/L 01/13/2013 2:01 PM [facility] Monocytes Absolute 0.47 0.26 - 1.07 x10^9/L 01/13/2013 2:01 PM [facility] Eosinophils Absolute 0.31 0 - 0.47 x10^9/L 01/13/2013 2:01 PM [facility] Basophils Absolute 0.02 0 - 0.08 x10^9/L 01/13/2013 2:01 PM [facility] Immature Granulocytes Absolute 0.01 0.00 - 0.06 x10^9/L 01/13/2013 2:01 PM [facility] nRBC Auto 0 01/13/2013 2:01 PM [facility] Blood specimen (specimen) BLOOD SPECIMEN / Unknown 01/13/2013 1:39 PM STEAM TABLE WORKER 01/13/2013 1:54 PM STEAM TABLE WORKER Rhonda Tomlinson PA-C LAB - HEMATOLOGY OR DERABLES [facility] [address] [place] [address] * (ABNORMAL) COMPREHENSIVE METABOLIC PANEL (01/13/2013 1:39 PM STEAM TABLE WORKER) Glucose 91 74 - 106 mg/dL 01/13/2013 2:27 PM [facility] Sodium 139 136 - 145 mmol/L 01/13/2013 2:27 PM [facility] Potassium 3.8 3.5 - 5.1 mmol/L 01/13/2013 2:27 PM [facility] Chloride 104 98 - 107 mmol/L 01/13/2013 2:27 PM [facility] CO2 25 22 - 31 mmol/L 01/13/2013 2:27 PM [facility] Calcium 9.1 8.5 - 10.1 mg/dL 01/13/2013 2:27 PM [facility] Anion Gap 10 5 - 15 mmol/L 01/13/2013 2:27 PM [facility] BUN 9 7 - 21 mg/dL 01/13/2013 2:27 PM [facility] Creatinine 0.67 0.50 - 1.30 mg/dL 01/13/2013 2:27 PM [facility] eGFR by MDRD >60 >60 ml/min/1.7 3m2 01/13/2013 2:27 PM [facility] eGFR by MDRD >60 >60 ml/min/1.7 3m2 01/13/2013 2:27 PM [facility] Alkaline Phosphatase 79 38 - 126 U/L 01/13/2013 2:27 PM [facility] ALT 26 12 - 78 U/L 01/13/2013 2:27 PM STEAM TABLE WORKER [facility] AST 19 5 - 40 U/L 01/13/2013 2:27 PM STEAM TABLE WORKER [facility] Protein Total 8.7(H) 6.4 - 8.2 gm/dL 01/13/2013 2:27 PM STEAM TABLE WORKER [facility] Albumin 4.3 3.4 - 5.0 gm/dL 01/13/2013 2:27 PM STEAM TABLE WORKER [facility] Bilirubin Total 0.4 0.2 - 1.0 mg/dL 01/13/2013 2:27 PM STEAM TABLE WORKER [facility] Blood specimen (specimen) BLOOD SPECIMEN / Unknown 01/13/2013 1:39 PM STEAM TABLE WORKER 01/13/2013 1:53 PM STEAM TABLE WORKER Rhonda Tomlinson PA-C LAB - CHEMISTRY ORD ERABLES Performing Organization Address [facility] Co de Phone Number [facility] [address] [place] [address] * CULTURE WOUND (11/29/2011 3:25 PM STEAM TABLE WORKER) Result [facility] Comment: Final GRAM STAIN No organisms seen. CULTURE Light growth Normal skin marjorie LESION SPECIMEN / Unknown 11/29/2011 3:25 PM STEAM TABLE WORKER 11/29/2011 3:30 PM STEAM TABLE WORKER Narrative Resulting Agency Comment Performed By [facility];[address] [place] [address];[place] [address] Jelani Brown MD LAB - MICROBIOLOGY ORDERABLES Performing Organization Address City/[facility] Co de Phone Number [facility] [address] [place] [address] Care Teams Buffing Wheel Raker Relationship Specialty Start Date End Date Pauly Kulkarni, RETURNED GOODS SORTER-INCIDENT ENGINEER [address] [place] [id number] PCP - General Nurse Practitioner 01/13/13
--- OUTSIDE RECORDS SUMMARY | 2024-11-22 10:49 | XMS_ITS | Encounter Summary ---
Author Organization [facility] Address [address] [place] [address]. [place], [place] [id number] [place] [address] Care Team Providers Care Filament Wound Parts Fabricator Name Role Phone Carlos Bonilla MD Primary Care Prov ider Reason for Visit * Reason Onset Date Comments Question 10/03/2024 Encounter Details Date Type Department Care Team (Late st Contact Info) Description 10/03/2024 Telephone [facility] Family Medicine - [place] [address], [address] [place] [address] [place] [address] [place] [address] Question Social History Tobacco Use Types Packs/Day Years Used Date Smoking Tobacco: Never Passive Smoke Exposure: Never Smokeless Tobacco: Never Alcohol Use Standard Drinks/Week Comments Yes 0 (1 standard drink = 0.6 oz pur e alcohol) social PHQ-2 Answer Date Recorded Patient Health Questionnaire-2 Score 0 04/21/2024 Sex and Gender Information Value Date Recorded Sex Assigned at Not on file Legal Sex Male 6:53 PM CDT Gender Identity Not on file Sexual Orientation Not on file documented as of this encounter Progress Notes * Dorie Stevenson MA - 10/03/2024 10:28 AM CST Called pt back to advise she is going to [facility] weight management. I advised him to let PCP know to submit a referral for him and she is starting in November. He vu and had no other concerns at this time. ISTICAL ENGINEER * Delma Rivera - 10/03/2024 9:15 AM CST Patient is wanting to know where Dr. Woo will be going for Weight Management. CB# is [phone] ISTICAL ENGINEER documented in this encounter Plan of Treatment Upcoming Encounters Date Type Department Care Team (Late st Contact Info) Description 12/09/2024 9:20 AM STATISTICAL ENGINEER Office Visit [facility] Family Medicine - [address], [address] [place] [phone] Carlos Bonilla MD [address] [place] [phone] documented as of this encounter Visit Diagnoses Not on filedocumented in this encounter Care Teams Filament Wound Parts Fabricator Relationship Specialty Start Date End Date Carlos Bonilla MD [address] [place] [address], [address] [phone] PCP - General FAMILY PRACTICE 10/03/24 documented as of this encounter
--- OUTSIDE RECORDS SUMMARY | 2024-11-22 10:49 | XMS_ITS | Clinical Summary ---
Author Organization [facility] Address [address] [place] [address] Care Team Providers Care Medical Equipment Sales Name Role Phone Pauly Kulkarni [facility] Source Comments [facility] Status Overload,non-owned Affiliates and Associated Physician Practices is amultiple site organization consisting of ambulatory clinics and hospital sitesin [place], [place], [place] and [place]. This disclosure is being madepursuant to the Care Everywhere program and may not contain all information available regarding this patient. Last updated 18.[facility] Status Overload Allergies No known active allergies Medications * Be aware that medications may not be up to date on this document. Alwaysverify current medications with the patient. Medication Sig Dispensed Refills Start Date End Date Status emtricitabine-tenofovir (TRUVADA) 200-300 MG tabletIndications:Human Immunodeficiency Virus Disease Take 1 Tab by mouth once daily. Indications: HIV Disease Active ritonavir (NORVIR) 100 MG capsuleIndications:Human immunodeficiency virus Take 100 mg by mouth once daily. Indications: HIV Active didanosine EC (VIDEX EC) 125 MG capsuleIndications:Human immunodeficiency virus Take 125 mg by mouth once daily. Indications: HIV Active hydrocodone-acetaminophen (NORCO) 5-325 MG tablet Take 1 Tab by mouth every 4 hours as needed. 20 Tab 0 01/15/2013 Active darunavir (PREZISTA) 800 MG tablet Take 1 Tab by mouth daily with breakfast. 01/15/2013 Active Active Problems Problem Noted Date Diagnosed Date [...] Comments Blood Pressure 104/65 01/15/2013 2:28 PM APPRENTICE COSMETOLOGIST Pulse 76 01/15/2013 2:28 PM APPRENTICE COSMETOLOGIST Temperature 36.7 ??C (98.1 ??F) 01/15/2013 2:28 PM CS T Respiratory Rate 16 01/15/2013 2:28 PM APPRENTICE COSMETOLOGIST Oxygen Saturation 97% 01/15/2013 2:28 PM APPRENTICE COSMETOLOGIST Inhaled Oxygen Concentration - - Weight 99.8 kg (220 lb) 01/13/2013 11:55 AM APPRENTICE COSMETOLOGIST Height 182.9 cm (6') 01/13/2013 11:55 AM APPRENTICE COSMETOLOGIST Body Mass Index 29.84 01/13/2013 11:55 AM APPRENTICE COSMETOLOGIST Plan of Treatment Health Maintenance Due Date Last Done Comments COLOGUARD (AGES 45-75) - COL ON CA SCREENING 1970 COLON MONITORING 1970 COLONOSCOPY - COLON CA SCREENING 1970 CT COLONOGRAPHY - COLON CA SCREENING 1970 Colorectal Cancer Screening 1970 FIT - COLON CA SCREENING 1970 FLEX SIG - COLON CA SCREENING 1970 LIPID TESTING 1970 HIV SCREENING 1985 HEPATITIS C SCREENING 11/01/1988 DTAP/TDAP/TD VACCINES (1 - Tdap) 1989 HEPATITIS B VACCINE (1 of 3 - 19+ 3-dose series) 1989 PNEUMOCOCCAL VACCINE 50+ (1 of 1 - PCV) 2020 ZOSTER VACCINE (1 of 2) 2020 COVID-19 VACCINE (1 - 2023-2 5 season) 2024 INFLUENZA VACCINE (#1) 2024 DEPRESSION SCREENING 11/12/2024 HIB VACCINE Aged Out No longer eligi ble based on patient's age to complete this topic HPV VACCINE Aged Out No longer eligi ble based on patient's age to complete this topic MENINGOCOCCAL (Group B) VACCINE Aged Out No longer eligible based on patient's age to complete this topic MENINGOCOCCAL VACCINE Aged Out No adams patria eligible based on patient's age to complete this topic PNEUMOCOCCAL VACCINE Aged Out No long er eligible based on patient's age to complete this topic Advance Directives * FULL RESUSCITATION (Latest Code Status on File) Date Activated Date Inactivated Comments 01/13/2013 3:00 PM 01/15/2013 4:55 PM Care Teams Medical Equipment Sales Relationship Specialty Start Date End Date Pauly Kulkarni APRN-RIVKA [address] [place] [address] PCP - General Nurse Practitioner 01/13/13
--- OUTSIDE RECORDS SUMMARY | 2024-11-22 10:49 | XMS_ITS | Encounter Summary ---
Author Organization [facility] Address [address] [place] [address] Care Team Providers Care Yarn Skeins Examiner Name Role Phone Pauly Kulkarni APRN-FINANCE PROFESSIONAL Primary Care P poornima Reason for Visit * Reason Comments Abscess Pt c/o abscess to th e right side of his face. Onset was last week. * Auth/Cert Specialty Diagnoses / Procedures Referred By Contac t Referred To Contact Inpatient Care Diagnoses Abscess [id number] Dph[facility] 5s General Med [id number] [place] [address] Referral ID Status Reason Start Date Expiration Date Visits Re quested Visits Authorized [id number] 01/14/2013 07/13/2013 1 Encounter Details Date Type Department Care Team (Late st Contact Info) Description 01/13/2013 12:38 PM SALAD COUNTER ATTENDANT - 01/15/2013 3:54 PM SALAD COUNTER ATTENDANT Hospital Encounter DP 5S General Med [address] [place] [id number] Rhonda Tomlinson PA-C [id number] [place] [address] [place] [address] [place] [id number] [facility] [place] [address] [place] [id number] [facility] [place] [address] General Medicine Discharge Disposition: Home or Self Care Social [...] Comments Blood Pressure 104/65 01/15/2013 2:28 PM SALAD COUNTER ATTENDANT Pulse 76 01/15/2013 2:28 PM SALAD COUNTER ATTENDANT Temperature 36.7 ??C (98.1 ??F) 01/15/2013 2:28 PM CS T Respiratory Rate 16 01/15/2013 2:28 PM SALAD COUNTER ATTENDANT Oxygen Saturation 97% 01/15/2013 2:28 PM SALAD COUNTER ATTENDANT Inhaled Oxygen Concentration - - Weight 99.8 kg (220 lb) 01/13/2013 11:55 AM SALAD COUNTER ATTENDANT Height 182.9 cm (6') 01/13/2013 11:55 AM SALAD COUNTER ATTENDANT Body Mass Index 29.84 01/13/2013 11:55 AM SALAD COUNTER ATTENDANT documented in this encounter Discharge Summaries * Cherri Anderson MD - 01/15/2013 1:41 PM CST Hospitalist Discharge Summary Dashawn Solitario Primary care physician Pauly Kulkarni Admit date: 01/13/2013 Discharge date: 01/15/2013 Discharge Physician: Cherri Anderson MD Presentation on admission Dashawn Solitario is a 42 y.o. male hx HIV followed at [facility] with undetectable viral for many years and CD4 over 500. Pt was admitted 3 with swelling, tenderness, yellow drainage from area on his right chin/face which started as a pimple 1-2 weeks ago. He was admitted and started on zosyn and Vanc and feels much better, with improved swelling. He reports improvement today with decreased swelling ,pain and redness. His wound culture is positive for staph aureus,final is pending. History of MRSA in past responded to bactrim,home on 2 weeks of bactrim per ID recommendation,f/u at [facility]. Patient seen and examined today, vitals and labs reviewed ,d/w pt He expressed good understanding,all questions answered to his satisfaction. Feel better and anxious to go home today. Will f/u with PCP for future care. EXAM: BP 104/68 Pulse 62 Temp 97.7 ??F Resp 16 Wt 220 lb (99.791 kg) BMI 29.84 kg/m2 General appearance: alert, cooperative, no distress HEENT NAD,swollen area rt side of chin improving. NECK: supple,no thyroid enlargement,no lymphadenopathy,no carotid bruit. Lungs: breath sounds normal and symmetric; no rales or wheezes Heart: regular rhythm, normal S1 and S2, without murmurs, gallops or rubs Abdomen: soft without mass, non-tender, with normal bowel sounds Extremities: no clubbing, cyanosis or edema,peripheral pulses equal and palpable Skin: no rashes or other abnormalities are noted Musculoskeletal: NAD Neurologic: mental status normal; alert and oriented X 3; cranial nerves II - XII grossly intact,no focal neurological deficits. Psychologic: normal Affect and mood PRINCIPLE DIAGNOSIS AT DISCHARGE WITH TREATMENT PLAN --- chin cellulitis / folliculitis MRSA screen pending Wound culture staph aureus bactrim DS 2 po bid for 2 weeks per ID recommendations Dr Medina will follow the sensitivities and will give decolonization protocol if this is MRSA. SECONDARY DIAGNOSIS AT DISCHARGE WITH TREATMENT PLAN -- HIV, stable. Plan will be admit to medicine on telemetry. Continue HAART Pt denies any AIDS related illnesses Consults ID Bret Medina MD Diagnostic Studies radiology: Facial CT EXTENSIVE CELLULITIS OVERLYING THE CHIN AND RIGHT HALF OF THE MANDIBLE MULTIFOCAL LYMPHADENOPATHY WHICH IS PRESUMABLY REACTIVE SPHENOID SINUS DISEASE Signed by: LUKE ORELLANA MD on SunJan 13, 2013 Procedures None Patient Instructions Discharge Medication List As of 01/15/2013 1:41 PM START taking these medications Instructions Authorizing Provider darunavir 800 MG tablet Commonly known as: PREZISTA Take 1 Tab by mouth daily with breakfast. Cherri Anderson hydrocodone-acetaminophen 5-325 MG tablet Commonly known as: NORCO Take 1 Tab by mouth every 4 hours as needed. Cherri Roland Anderson sulfamethoxazole-trimethoprim 800-160 MG tablet Commonly known as: BACTRIM DS; SEPTRA DS Take 2 Tabs by mouth every 12 hours for 14 days. Cherri Anderson CONTINUE taking these medications Instructions Authorizing Provider didanosine EC 125 MG capsule Commonly known as: VIDEX EC Take 125 mg by mouth once daily. Indications: HIV ritonavir 100 MG capsule Commonly known as: NORVIR Take 100 mg by mouth once daily. Indications: HIV TRUVADA 200-300 MG tablet Generic drug: emtricitabine-tenofovir Take 1 Tab by mouth once daily. Indications: HIV Disease Discharge Procedure Orders PATIENT TO CALL PHYSICIAN FOR APPOINTMENT Follow up with primary care physician in 1 week Pauly Kulkarni APRN-CNP Call office to schedule appointment(s). F/U Wash U Bring all medications to next visit. REGULAR DIET AT HOME NO ACTIVITY RESTRICTIONS AT DISCHARGE No Smoking, alcohol, drugs Instructed to seek immediate medical attention if any symptoms worsen or has new symptoms. All the discharge instructions explained in detail to the patient and family. All questions answered. Condition at discharge: good Disposition: Home Code Status At Discharge Full Code Discharge time: Total time spent was 35 minutes to review medications and place discharge orders/instructions and explain the discharge plan D/c summary note was faxed to PCP via the [employer] system CC Pauly Kulkarni D COUNTER ATTENDANT documented in this encounter Discharge Instructions * Discharge Instructions* Daisy Radha K - 01/15/2013 1:56 PM SALAD COUNTER ATTENDANT If you have any questions regarding your home medications/prescriptions, please contact your primary physician. Discharge Procedure Orders PATIENT TO CALL PHYSICIAN FOR APPOINTMENT Follow up with primary care physician in 1 week Pauly Kulkarni APRN-CNP Call office to schedule appointment(s). F/U Wash U Bring all medications to next visit. REGULAR DIET AT HOME NO ACTIVITY RESTRICTIONS AT DISCHARGE Please avoid smoking and second hand smoke. The following belongings have been returned to you: .WEIGHT MONITORING - If you have heart failure, weigh yourself every morning. Contact your physician if your weight increases by 3 pounds in 1 day OR 5 pounds in 1 week. WHAT TO DO IF SYMPTOMS WORSEN - Contact your physician if you have shortness of breath/difficulty breathing, or any swelling of your legs, ankles or feet. IF YOU EXPERIENCE NEW STROKE SYMPTOMS, CALL 911 IMMEDIATELY - Symptoms of stroke include any of the following: Trouble talking/slurred speech, arm/leg/hand/facial weakness on one side, loss of balance or coordination or sudden loss of vision. - Modifiable risk factors for stroke include, but are not limited to: overweight/obesity, sedentarylifestyle/inactivity, alcohol consumption, illicit drug use, smoking, hypertension, high cholesterol, diabetes and atrial fibrillation. The discharge and medication instructions have been reviewed with me and my questions have been answered. I have received a copy of the discharge instructions. 01/15/2013 D COUNTER ATTENDANT * Discharge Instructions* Document, Scanned - 01/16/2013 10:45 AM SALAD COUNTER ATTENDANT D COUNTER ATTENDANT documented in this encounter Medications at Time of Discharge Medication Sig Dispensed Refills Start Date End Date darunavir (PREZISTA) 800 MG tablet Take 1 Tab by mouth daily with breakfast. 01/15/2013 didanosine EC (VIDEX EC) 125 MG capsuleIndications:Human immunodeficiency virus Take 125 mg by mouth once daily. Indications: HIV emtricitabine-tenofovir (TRUVADA) 200-300 MG tabletIndications:Human Immunodeficiency Virus Disease Take 1 Tab by mouth once daily. Indications: HIV Disease hydrocodone-acetaminophen (NORCO) 5-325 MG tablet Take 1 Tab by mouth every 4 hours as needed. 20 Tab 0 01/15/2013 ritonavir (NORVIR) 100 MG capsuleIndications:Human immunodeficiency virus Take 100 mg by mouth once daily. Indications: HIV sulfamethoxazole-trimethopr im (BACTRIM DS; SEPTRA DS) 800-160 MG tablet Take 2 Tabs by mouth every 12 hours for 14 days. 28 Tab 0 01/15/2013 01/29/2013 documented as of this encounter Progress Notes * Bret Medina MD - 01/15/2013 2:10 PM CST ID Progress Note Dashawn Solitario Admit Date: 01/13/2013 12:38 PM 01/15/2013 Hospital Day: 2 0.9% NaCl infusion, Intravenous, Continuous Vanc 4 Subjective: Pt feels much better. Wound cx is growing staph aureus. No n/v/d/cough/phlegm/sob/itch/rash. Objective: Vitals: 01/14/13 0355 01/14/13 1354 01/14/13 2049 01/15/13 0500 BP: 95/56 102/58 112/71 104/68 Pulse: 76 78 79 62 Temp: 97.9 ??F 98.3 ??F 98.2 ??F 97.7 ??F Resp: 16 18 16 16 Weight: SpO2: 92% 94% 96% 100% Temp (30hrs) Max:98.3 ??F Intake/Output Summary (Last 24 hours) at 01/15/13 1410 Last data filed at 01/15/13 0636 Gross per 24 hour Intake: 2522 ml Output: 0 ml Net : 2522 ml Exam General appearance: alert, cooperative, no distress Heart: regular rhythm, normal S1 and S2, without murmurs, rubs or gallops Lungs: breath sounds normal and symmetric; no rales or wheezes Abdomen: soft without mass, non-tender, with normal bowel sounds Extremities: no clubbing, cyanosis or edema Skin: no rash. Warm and dry Neuro: A+O, Moves all 4 extremities, CN 2-12 grossly intact Right chin 3cm area with thick crust and some purulence underneath. No induration/redness/warmth/tenderness. Lab: Component Name 01/13/13 1339 WBC 5.5 HGB 13.1 HCT 37.9 PLTCOUNT 232 43n 42L Component Name 01/13/13 1339 SODIUM 139 POTASSIUM 3.8 CHLORIDE 104 CO2 25 BUN 9 CREATININE 0.67 GLUCOSE 91 CALCIUM 9.1 ALBUMIN 4.3 ALKPHOS 79 ALT 26 AST 19 TBIL 0.4 TPROT 8.7* EGFR >60 No results found for this basename: CDIFFTOXINAB:3 in the last [address] neck with - soft tissue swelling without abscess Bld cx 4 ntd Wound cx chin 5 - SA Assessment 42 y.o. male hx HIV followed at [facility] with undetectable viral for many years and CD4 over 500. - right facial cellulitis from surface marjorie suspect follicular origin. SA. - on ARV therapy. Plan OK to discharge on Bactrim DS two PO bid for 2 weeks He says a similar episode a few years ago improved with bactrim. I will follow the sensitivities. He gave me his cell number I reviewed conservative management of abscesses. I will give decolonization protocol if this is MRSA. F/U [facility] Bret Medina MD Cell D COUNTER ATTENDANT * Radha Villa - 01/15/2013 1:51 PM CST Per phone call from Dr. Anderson ok with Dr. Medina to d/c pt home D COUNTER ATTENDANT * Radha Villa - 01/15/2013 1:31 PM CST Rounded with Dr. Anderson D COUNTER ATTENDANT * Shae Zaldivar RN - 01/15/2013 6:50 AM CST Uneventful night. Pain medication x1 for the night. Vital signs stable. Shae Zaldivar 01/15/20136:51 AM D COUNTER ATTENDANT * Maryjane Yusuf RN - 01/14/2013 3:47 PM CST Resumed care at 1330. Pt alert and oriented X4. Complains of pain. Medication given for relief. Cultures of wound sent. Tolerating diet. Voiding appropriately. IV infusing. Antibiotics hung. Resting in bed with call light in reach. Pt will continue to be monitored. Maryjane Yusuf RN 01/14/2013 3:48 PM D COUNTER ATTENDANT * Lara Alexander RN - 01/14/2013 1:11 PM CST Admitted through the ED per MD notes with CC abscess on right jaw Met with patient and explained the role of CM/SW. Name and phone number of CM written on dry erase board in patients room. Welcome Letter, Provider List, and Patient Rights given to patient Discussed POC/LOS/DC needs Prior to admit: Lives with his parents. Receives HIV care through [facility]. Independent with adls. Hospitalization within the past 31 days: na DME: none PCP: Dr Kulkarni Follow up appointment: Pt will make own appointment [facility]: aware of service Flu vaccine: fall 2011 Pneumonia vaccine: fall 2011 D/C Plan: home vs NH Transportation at discharge: His car in garage. IV abx Call Lara Alexander R.N. Tube Cleaner at [phone] or pager [phone] with any questions or concerns. D COUNTER ATTENDANT * Cherri Anderson MD - 01/14/2013 12:58 PM CST [facility] PROGRESS NOTE Admit Date: 01/13/2013 12:38 PM Hospital Day: 1 01/14/2013 Pauly Solitario is a 42 y.o. male SUBJECTIVE: Awake and alert Feels better with less pain and swelling of chin No fevers or chills Data Vitals: 01/13/13 1155 01/13/13 1737 01/13/13 2024 01/14/13 0355 BP: 122/81 124/84 112/65 95/56 Pulse: 79 76 83 76 Temp: 98.2 ??F 98.2 ??F 98.3 ??F 97.9 ??F Resp: 16 18 16 16 Weight: 220 lb (99.791 kg) SpO2: 100% 99% 98% 92% Temp (30hrs) Max:98.3 ??F Intake/Output Summary (Last 24 hours) at 01/14/13 1258 Last data filed at 01/14/13 0804 Gross per 24 hour Intake 2070 ml Output 0 ml Net 2070 ml Component Name 01/13/13 1339 WBC 5.5 HGB 13.1 HCT 37.9 PLTCOUNT 232 No results found for this basename: TROPONIN:3 in the last 46549 hours Component Name 01/13/13 1339 SODIUM 139 POTASSIUM 3.8 CHLORIDE 104 CO2 25 BUN 9 CREATININE 0.67 GLUCOSE 91 CALCIUM 9.1 Component Name 01/13/13 1339 ALBUMIN 4.3 ALKPHOS 79 ALT 26 AST 19 TBIL 0.4 DBIL -- TPROT 8.7* No results found for this basename: BNP:3 in the last 56776 hours No data found. MEDICATIONS FOR CURRENT ENCOUNTER: ?? SCHEDULED MEDICATIONS: ?? didanosine EC (VIDEX EC) capsule 125 mg, Oral, QDAY ?? emtricitabine-tenofovir (TRUVADA) tablet 1 Tab, Oral, QDAY ?? heparin injection 5,000 Units, Subcutaneous, BID ?? hydrocodone-acetaminophen (NORCO) 5-325 MG tablet 1 Tab, Oral, Once ?? hydrocodone-acetaminophen (NORCO) 5-325 MG tablet 1 Tab, Oral, Once ?? iohexol (OMNIPAQUE 350) contrast, Intravenous, Contrast - Once ?? piperacillin - tazobactam (ZOSYN) IVPB 3.375 g, Intravenous, q6h ?? ritonavir (NORVIR) tablet 100 mg, Oral, QDAY ?? vancomycin (VANCOCIN) 1,500 mg in NaCl 0.9 % IVPB, Intravenous, q12h ?? vancomycin (VANCOCIN) 2,500 mg in NaCl 0.9 % IVPB, Intravenous, Once ?? CONTINUOUS MEDICATIONS: ?? 0.9% NaCl infusion, Intravenous, Continuous ?? PRN MEDICATIONS: ?? acetaminophen (TYLENOL) tablet 650 mg, Oral, q4h PRN ?? diphenhydrAMINE (BENADRYL) injection 25 mg, Intravenous, q6h PRN ?? hydrocodone-acetaminophen (NORCO) 5-325 MG tablet 1-2 Tab, Oral, q4h PRN ?? morphine injection 2 mg, Intravenous, q4h PRN ?? ondansetron (ZOFRAN) injection 4 mg, Intravenous, q4h PRN ?? okgwenw-plnsbk-fznje pertussis (BOOSTRIX) injection 0.5 mL, Intramuscular, Once PRN ?? Exam General appearance: alert, cooperative, no distress HEENT NAD,swollen area rt side of chin with yellowish drainage and crusting NECK: supple,no thyroid enlargement,no lymphadenopathy,no carotid bruit. Lungs: breath sounds normal and symmetric; no rales or wheezes Heart: regular rhythm, normal S1 and S2, without murmurs, gallops or rubs Abdomen: soft without mass, non-tender, with normal bowel sounds Extremities: no clubbing, cyanosis or edema,peripheral pulses equal and palpable Skin: no rashes or other abnormalities are noted Musculoskeletal: NAD Neurologic: mental status normal; alert and oriented X 3; cranial nerves II - XII grossly intact,no focal neurological deficits. Psychologic: normal Affect and mood Labs,meds and notes personally reviewed. Assessment and Plan --- chin cellulitis / folliculitis Continue IV abx ID consulted F/u MRSA screen -- HIV, stable. Plan will be admit to medicine on telemetry. Continue HAART Pt denies any AIDS related illnesses . -- Deep vein thrombosis prophylaxis with heparin 5,000 units subcu t.i.d. D COUNTER ATTENDANT * Jodee Barnes RN - 01/14/2013 7:49 AM CST Gambreler Summary: The patient has been in NAD. He has no c/o chest pain, shortness of breath andhis airway remains patent with no c/o difficulty swallowing. He is tolerating his IV antibiotics without c/o itching at this time. D COUNTER ATTENDANT * Maria Del Rosario Casarez RPH - 01/13/2013 2:05 PM CST Vancomycin Dosing Protocol S/O: Dashawn Solitario is a 42 y.o. male Patient weight is Wt 99.791 kg (220 lb) SrCr 1.0 estimated-labs not back yet. Will adjust protocol if necessary. Estimated creatinine clearance = 100 ml/min A: Initial dosing regimen: Dose: 2500 mg iv x 1 now then 1500 mg iv q 12 h Interval: q 12 hr based on estimated CrCl P: Will obtain vancomycin trough level on 01-15-13 evaluate, and adjust dosage regimen if appropriate. Will monitor Scr q 2-4 days. Pharmacist Name: Maria Del Rosario Casarez RPH D COUNTER ATTENDANT documented in this encounter H&P Notes * Debi Yanez MD - 01/13/2013 10:52 PM CST [facility] HISTORY AND PHYSICAL PATIENT: DASHAWN SOLITARIO MR#: [id number] ADMIT DATE: 01/13/2013 CSN: [id number] : 1970 ROOM: [facility] PHYSICIAN: DEBI YANEZ MD CHIEF COMPLAINT: Right chin swelling with drainage. HISTORY OF PRESENT ILLNESS: This is a 42-year-old male who is HIV positive. He was diagnosed 14 years ago. He said 2 weeks ago, his virus scans continued to be undetectable, CD4 count apparently are over 500 in number. The patient said that a week ago he noticed like a small boil in his chin, this continued to grow, he did see some spontaneous drainage especially at night. He has not been on any other medications. Nevertheless, this morning he noticed that it was throbbing and it was a little bigger so he presented to the emergency room. He had a CT that showed some cellulitis, no real abscess. The patient has not begun on any antibiotics. He denies fever or chills. He said a year ago he had a similar episode of another abscess in his neck which required drainage. He denies fever, chills. No nausea, no vomiting. No problems swallowing. No problems breathing. He is compliant with his medications. No diarrhea. No shortness of breath. No headache or blurred vision. PAST MEDICAL HISTORY: HIV. MEDICATIONS: Videx, Truvada and Norvir. SOCIAL HISTORY: He lives by himself. He is able to perform all daily living activities. He denies smoking, he occasionally can have an alcoholic beverage. He is up-to-date with the flu shot. FAMILY HISTORY: There is no history of early coronary artery disease. REVIEW OF SYSTEMS: All systems have been reviewed. Pertinent positives have been mentioned in the HPI. No other positive findings obtained. PHYSICAL EXAM: VITAL SIGNS: Blood pressure is 112/65, heart rate 83, respiratory rate 16, temperature 98.3, pulse ox 98% on room air. GENERAL: The patient looks comfortable, in no distress. HEENT: Normocephalic, atraumatic. Pupils equally reactive to light and accommodation. Extraocular movement intact. Dry oral mucosa. Good dentition. NECK: Supple. No lymphadenopathy. No JVD. No bruit. No masses. He has a raised area in the right chin with some redness, it is warm, it is tender and there is some scaly skin, there is no area of drainage. RESPIRATORY: Clear to auscultation. No wheezes, no crackles, no rhonchi. HEART: Regular rhythm. Normal S1 and S2. No murmurs, no gallops, no rubs. ABDOMEN: Nontender, nondistended. Bowel sounds positive. No organomegaly. EXTREMITIES: No cyanosis or pitting edema. Pedal pulses 2/2. NEURO: Alert and oriented x3. Cranial nerves II-XII grossly intact. No signs of focalization. LABORATORY DATA: Glucose 91, BUN 9, creatinine 0.6, sodium 139, potassium 3.8, chloride 104, bicarb 25, anion gap 10, calcium 9.9, alkaline phosphatase 79, ALT 26, AST 19, total protein 8.7, albumin 4.3, total bilirubin 0.4. White blood cell count 5.5, hemoglobin 13.1, hematocrit 37.9, platelets 237. CT of the soft tissue showed extensive cellulitis over the right chin and right half of the mandible, multifocal lymphadenopathy with sphenoid sinus disease, no actual abscess. ASSESSMENT AND PLAN: This is a 42-year-old male who is HIV positive, who comes in with an extensive chin cellulitis with possible involving abscess. He will need to be admitted for intravenous antibiotics. 1. HIV, stable. Plan will be admit to medicine on telemetry. Continue HAART, agree with Zosyn and vancomycin. Will premedicate the patient with Benadryl as he earlier developed some redness and itchiness while having the vancomycin which I think most likely is red man syndrome. 2. Methicillin resistant Staphylococcus aureus screening, ID consult. 3. Deep vein thrombosis prophylaxis with heparin 5,000 units subcu t.i.d. If the patient finally develops an abscess, then surgical consult may be merited. MD TATE Bourne/ANTHONY #: [id number] D COUNTER ATTENDANT * Debi Yanez MD - 01/13/2013 9:52 PM CST Full H & P dictated: 1. Chin cellulitis with possible evolving abscess\ 2. HIV, virus counts undetectable and CD4 550 Plan: 1. Admit to medicine, non-telemetry 2. Continue outpatient medications 3. Agree with zosyn and vanco ( will premedicate with benadryl as most likely developed red man syndrome). 4. MRSA screening. 5. DVT prophylaxis with heparin 5000units SC tid 6. ID consult 7. Full code D COUNTER ATTENDANT documented in this encounter Consult Notes * Bret Medina MD - 01/14/2013 2:32 PM CSTAssociated Order(s): IP CONSULT TO INFECTIOUS DISEASES ID Consult Note 01/13/2013 Date of Consult: 01/14/2013 Patient's Primary Care Physician: Pauly Kulkarni Reason for Consultation: Facial cellulitis Name: Dashawn Solitario Age: 42 y.o. Chief Complaint/History of Present Illness Dashawn Solitario is a 42 y.o. male hx HIV followed at [facility] with undetectable viral for many years and CD4 over 500. Pt was admitted 01/13 with swelling, tenderness, yellow drainage from area on his right chin/face which started as a pimple 1-2 weeks ago. He was admitted and started on zosyn and Vanc and feels much better, with improved swelling. He denies f/c/s/parker/sinus sx st/ear pn/mouth pn/tooth pn/cp/cough/phlegm/sob/abd pn/n/v/d/constip/urinary burning or frequency/other itch or rash. He denies known hx of MRSA. 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 Hobbies include reading and bowling. He sees the dentist about every 3 months and appears to have excellent dental care. He last say the dentist about a month ago. No Known Allergies Past Medical History Diagnosis Date ??? NEGATIVE PAST MEDICAL HISTORY - SEE PROBLEM LIST Negative Medical History ??? HIV (human immunodeficiency virus infection) Past Surgical History Procedure Date ??? Negative surgical history No family history on file. Social History Occupational History ??? Not on file. Social History Main Topics ??? Smoking status: Never Smoker ??? Smokeless tobacco: Not on file ??? Alcohol Use: No ??? Drug Use: No ??? Sexually Active: Not on file Prescriptions prior to admission Medication Sig Dispense Refill ??? emtricitabine-tenofovir (TRUVADA) 200-300 MG tablet Take 1 Tab by mouth once daily. Indications: HIV Disease ??? ritonavir (NORVIR) 100 MG capsule Take 100 mg by mouth once daily. Indications: HIV ??? didanosine EC (VIDEX EC) 125 MG capsule Take 125 mg by mouth once daily. Indications: HIV MEDICATIONS FOR CURRENT ENCOUNTER: ?? SCHEDULED MEDICATIONS: ?? darunavir (PREZISTA) tablet 800 mg, Oral, QDAY WITH BREAKFAST ?? didanosine EC (VIDEX EC) capsule 125 mg, Oral, QDAY ?? emtricitabine-tenofovir (TRUVADA) tablet 1 Tab, Oral, QDAY ?? heparin injection 5,000 Units, Subcutaneous, BID ?? hydrocodone-acetaminophen (NORCO) 5-325 MG tablet 1 Tab, Oral, Once ?? iohexol (OMNIPAQUE 350) contrast, Intravenous, Contrast - Once ?? piperacillin - tazobactam (ZOSYN) IVPB 3.375 g, Intravenous, q6h ?? ritonavir (NORVIR) tablet 100 mg, Oral, QDAY ?? vancomycin (VANCOCIN) 1,500 mg in NaCl 0.9 % IVPB, Intravenous, q12h ?? vancomycin (VANCOCIN) 2,500 mg in NaCl 0.9 % IVPB, Intravenous, Once ?? CONTINUOUS MEDICATIONS: ?? 0.9% NaCl infusion, Intravenous, Continuous ?? PRN MEDICATIONS: ?? acetaminophen (TYLENOL) tablet 650 mg, Oral, q4h PRN ?? diphenhydrAMINE (BENADRYL) injection 25 mg, Intravenous, q6h PRN ?? hydrocodone-acetaminophen (NORCO) 5-325 MG tablet 1-2 Tab, Oral, q4h PRN ?? morphine injection 2 mg, Intravenous, q4h PRN ?? ondansetron (ZOFRAN) injection 4 mg, Intravenous, q4h PRN ?? ifbnfua-iwmbkz-jsamy pertussis (BOOSTRIX) injection 0.5 mL, Intramuscular, Once PRN Vitals: 01/13/13 1737 01/13/13 2024 01/14/13 0355 01/14/13 1354 BP: 124/84 112/65 95/56 102/58 Pulse: 76 83 76 78 Temp: 98.2 ??F 98.3 ??F 97.9 ??F 98.3 ??F Resp: 18 16 16 18 Weight: SpO2: 99% 98% 92% 94% Temp (30hrs) Max:98.3 ??F Intake/Output Summary (Last 24 hours) at 01/14/13 1432 Last data filed at 01/14/13 1354 Gross per 24 hour Intake: 2470 ml Output: 0 ml Net : 2470 ml Exam General appearance: alert, cooperative, no distress Head: Normocephalic, without trauma. Yellow crusted swollen area right chin with trace surrounding redness and swelling, with mild purulence beneath the crust Eyes: sclera and conjunctiva clear, EOMI and PERRLA, lids normal Throat: no mucous membrane abnormalities Neck: range of motion is intact, no masses, thyroid not enlarged, no adenopathy Nodes: no cervical, axillary or inguinal adenopathy Lungs: breath sounds normal and symmetric; no rales or wheezes Heart: regular rhythm, normal S1 and S2, without murmurs, gallops or rubs Abdomen: soft without mass, non-tender, with normal bowel sounds Extremities: no clubbing, cyanosis or edema Joints: ranges of motion normal without inflammation, effusion or deformity Skin: no rashes or other abnormalities are noted Neurologic: mental status normal; alert and oriented X 3; cranial nerves II - XII are grossly intact Data Component Name 01/13/13 1339 SODIUM 139 POTASSIUM 3.8 CHLORIDE 104 CO2 25 BUN 9 CREATININE 0.67 GLUCOSE 91 CALCIUM 9.1 ALBUMIN 4.3 ALKPHOS 79 ALT 26 AST 19 TBIL 0.4 TPROT 8.7* EGFR >60 No results found for this basename: CDIFFTOXINAB:3 in the last 36578 hours Component Name 01/13/13 1339 WBC 5.5 HGB 13.1 HCT 37.9 PLTCOUNT [address] neck with - soft tissue swelling without abscess Bld cx 4 ntd Assessment 42 y.o. male hx HIV followed at [facility] with undetectable viral for many years and CD4 over 500. - right facial cellulitis from surface marjorie suspect follicular origin. Possible staph. - on ARV therapy. The ritonvavir would be used to boost a protease inhibitor. He says he is also ondaily prezista. Plan I added the prezista. Continue Videx EC, Truvada, ritonavir D/C Zosyn Continue Vanc MRSA screen is pending. He says a similar episode a few years ago improved with bactrim. At discharge, Bactrim DS two PO bid for 2 weeks F/U Wash U Culture wound ordered Bret Medina MD Cell D COUNTER ATTENDANT documented in this encounter ED Notes * Tanesha Kelly RN - 01/13/2013 4:18 PM CST Transportation called. D COUNTER ATTENDANT * Tanesha Kelly RN - 01/13/2013 4:13 PM CST Report called to Sylvester Rod. Reported Vanc not given in ED, but will be sent up to floor with Pt. Will continue to monitor. D COUNTER ATTENDANT * Frantz Pineda MD - 01/13/2013 1:32 PM CST 1:33 PM For this patient, I reviewed the HEEL CASER or PA documentation, procedures (if done), treatment plan, and medical decision making; and I had [id number] time with this patient. 01/13/2013 1:33 PM I have reviewed the information recorded by the scribe and agree with its accuracy and contents--Dr. Pineda Transcribed by Garrett Cintron acting scribe on behalf of Dr. Pineda D COUNTER ATTENDANT * Rhonda Tomlinson PA-C - 01/13/2013 1:16 PM CST attestation needed D COUNTER ATTENDANT * Rhonda Tomlinson PA-C - 01/13/2013 1:11 PM CST Images from the original note were not included. Provider contact with the patient: 01/13/2013 13:10 Dashawn Solitario [id number] [facility] History Chief Complaint Patient presents with ??? Abscess Pt c/o abscess to the right side of his face. Onset was last week. HPI Comments: Pt is 42 y/o HIV+, AA male c/o abscess to right side of chin with swelling for 1 week. He denies any fever, chills, nausea, or vomiting. Pt denies any drainage to site and states that he picked at his abscess a bit and he only got a small amount of yellow d/c. Pt admits to hx abscess located to right side of chin 2 years ago. Abscess The history is provided by the patient. This is a new problem. The current episode started less than one week ago. The problem occurs occasionally. The problem has been gradually worsening. Body Location: chin.The problem is moderate. There has been no fever, no chills, no nausea, no lymphangitis, and no swollen lymph nodes.The relevant past medical history includes abscess. Past Medical History Diagnosis Date ??? NEGATIVE PAST MEDICAL HISTORY - SEE PROBLEM LIST Negative Medical History ??? HIV (human immunodeficiency virus infection) Past Surgical History Procedure Date ??? Negative surgical history No family history on file. History Social History ??? Marital Status: Spouse Name: N/A Number of Children: N/A ??? Years of Education: N/A Occupational History ??? Not on file. Social History Main Topics ??? Smoking status: Never Smoker ??? Smokeless tobacco: Not on file ??? Alcohol Use: No ??? Drug Use: No ??? Sexually Active: Not on file Other Topics Concern ??? Not on file Social History Narrative ??? No narrative on file Review of Systems Review of Systems Constitutional: Negative for fever and chills. Skin: Abscess to chin All other systems reviewed and are negative. Physical Exam BP 122/81 Pulse 79 Temp 98.2 ??F Resp 16 Ht 6' (1.829 m) Wt 220 lb (99.791 kg) BMI 29.84 kg/m2 SpO2 100% Physical Exam Nursing note and vitals reviewed. Constitutional: He is well-developed, well-nourished, and in no distress. HENT: Head: Normocephalic and atraumatic. Eyes: Pupils are equal, round, and reactive to light. Neck: Normal range of motion. Neck supple. Cardiovascular: Normal rate and regular rhythm. Pulmonary/Chest: Effort normal and breath sounds normal. Musculoskeletal: Normal range of motion. Skin: There is erythema. Medications Current Outpatient Prescriptions Medication Sig Dispense Refill ??? emtricitabine-tenofovir (TRUVADA) 200-300 MG tablet Take 1 Tab by mouth once daily. Indications: HIV Disease ??? ritonavir (NORVIR) 100 MG capsule Take 100 mg by mouth once daily. Indications: HIV ??? didanosine EC (VIDEX EC) 125 MG capsule Take 125 mg by mouth once daily. Indications: HIV Procedures Procedures EKG Interpretation Lab Interpretation Oxygen Saturation Interpretation The oxygen saturation level is: 100%. The patient was on Room Air for the saturation measurement. Measurement frequency: Spot Check. Intervention(s) used: None. Results for orders placed during the hospital encounter of 01/13/13 CBC W AUTO DIFFERENTIAL Component Value Range WBC 5.5 4.4-10.7 x10^9/L RBC 4.59 3.80-5.40 x10^12/L Hgb 13.1 12.0-17.6 g/dL HCT 37.9 35.2-51.7 % MCV 82.6 80.7-98.3 fl MCH 28.5 26.7-34.0 pg MCHC 34.6 30.8-35.9 gm/dL Plt Ct 232 153-416 x10^9/L RDW-CV 13.1 12.1-14.9 % Neutro 43 (*) 44-73 % Lymph 42 20-43 % [place] 9 5-13 % Eos 6 0-6 % Baso 0 0-2 % Immature Grans 0.2 0-1 % Neutro Abs 2.39 Lymph Abs 2.31 1.07-3.94 x10^9/L [place] Abs 0.47 0.26-1.07 x10^9/L Eosin Abs 0.31 0-0.47 x10^9/L Baso Abs 0.02 0-0.08 x10^9/L Immature Grans Abs 0.01 0.00-0.06 x10^9/L NRBC Auto 0 COMPREHENSIVE METABOLIC PANEL Component Value Range Glucose 91 74-106 mg/dL Sodium 139 136-145 mmol/L Potassium 3.8 3.5-5.1 mmol/L Chloride 104 98-107 mmol/L CO2 25 22-31 mmol/L Calcium 9.1 8.5-10.1 mg/dL Anion Gap 10 5-15 mmol/L BUN 9 7-21 mg/dL Creatinine 0.67 0.50-1.30 mg/dL eGFR by MDRD >60 >60 ml/min/1.73m2 eGFR by MDRD AFR AMER >60 >60 ml/min/1.73m2 Alk Phos 79 38-126 U/L ALT/SGPT 26 12-78 U/L AST/SGOT 19 5-40 U/L Protein Total 8.7 (*) 6.4-8.2 gm/dL Albumin 4.3 3.4-5.0 gm/dL Bili Total 0.4 0.2-1.0 mg/dL CT SOFT TISSUE NECK WITH CONTRAST Final Result: EXTENSIVE CELLULITIS OVERLYING THE CHIN AND RIGHT HALF OF THE MANDIBLE MULTIFOCAL LYMPHADENOPATHY WHICH IS PRESUMABLY REACTIVE SPHENOID SINUS DISEASE Progress Notes Pt started on IV Zosyn/Vancomycin CT EXTENSIVE CELLULITIS OVERLYING THE CHIN AND RIGHT HALF OF THE MANDIBLE MULTIFOCAL LYMPHADENOPATHY 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 I have interpreted the following results: Labs, CT Scans and Oxygen Saturation. I have discussed the case with Other (Dr Medina from ID to consult) and Hospitalist (Dr. Benz toadmit). Orders Placed This Encounter ??? CULTURE BLOOD ??? CT SOFT TISSUE NECK WITH CONTRAST ??? CBC W AUTO DIFFERENTIAL ??? COMPREHENSIVE METABOLIC PANEL ??? VANCOMYCIN LEVEL TROUGH ??? INFECTIOUS DISEASES CONSULT ??? acetaminophen (TYLENOL) tablet 650 mg ??? ildnjdy-nguxry-qwnlp pertussis (BOOSTRIX) injection 0.5 mL ??? hydrocodone-acetaminophen (NORCO) 5-325 MG tablet 1 Tab ??? DISCONTD: vancomycin (VANCOCIN) IV dose per pharmacy ??? piperacillin - tazobactam (ZOSYN) IVPB 3.375 g ??? hydrocodone-acetaminophen (NORCO) 5-325 MG tablet 1 Tab ??? vancomycin (VANCOCIN) 2,500 mg in NaCl 0.9 % IVPB ??? vancomycin (VANCOCIN) 1,500 mg in NaCl 0.9 % IVPB ??? iohexol (OMNIPAQUE 350) contrast ??? 0.9% NaCl infusion ??? morphine injection 1 mg ??? ondansetron (ZOFRAN) injection 4 mg Clinical Impression Final diagnoses: Abscess (Primary) D COUNTER ATTENDANT * Frantz Pineda MD - 01/13/2013 1:11 PM CST 01/13/2013 15:54 For this patient encounter, I reviewed the HEEL CASER or PA documentation, procedures (if done), treatment plan, and medical decision making; and I had [id number] time with this patient. D COUNTER ATTENDANT * Frantz Pineda MD - 01/13/2013 1:11 PM CST 01/13/2013 17:08 For this patient encounter, I reviewed the HEEL CASER or PA documentation, procedures (if done), treatment plan, and medical decision making; and I had [id number] time with this patient. D COUNTER ATTENDANT documented in this encounter Miscellaneous Notes * Miscellaneous Scans - Document, Scanned - 01/16/2013 10:45 AM CST D COUNTER ATTENDANT documented in this encounter Plan of Treatment Not on file documented as of this encounter Procedures Procedure Name Priority Date/Time Associated Diagnosis Comments CULTURE WOUND+GRAM STAIN Routine 01/14/2013 2:42 PM SALAD COUNTER ATTENDANT CULTURE MRSA STAT 01/14/2013 5:51 AM SALAD COUNTER ATTENDANT Abscess CT NECK SOFT TISSUE W CONT STAT 01/13/2013 3:06 PM SALAD COUNTER ATTENDANT Abscess CULTURE BLOOD Timed 01/13/2013 2:27 PM SALAD COUNTER ATTENDANT CULTURE BLOOD Timed 01/13/2013 1:40 PM SALAD COUNTER ATTENDANT CBC W AUTO DIFFERENTIAL STAT 01/13/2013 1:39 PM SALAD COUNTER ATTENDANT COMPREHENSIVE METABOLIC PANEL STAT 01/13/2013 1:39 PM SALAD COUNTER ATTENDANT documented in this encounter Results * (ABNORMAL) CULTURE WOUND+GRAM STAIN (01/14/2013 2:42 PM SALAD COUNTER ATTENDANT) Culture Moderate Growth Staphylococcus aureus(A) 01/17/2013 7:02 AM SALAD COUNTER ATTENDANT [facility] Gram Stain Rare White blood cells 01/17/2013 7:02 AM SALAD COUNTER ATTENDANT [facility] Gram Stain No organisms seen 013 7:02 AM SALAD COUNTER ATTENDANT [facility] Miscellaneous samples (specimen) LESION SPECIMEN / Unknown 01/14/2013 2:42 PM SALAD COUNTER ATTENDANT 01/14/2013 2:55 PM SALAD COUNTER ATTENDANT Narrative Organism Antibiotic Method Susceptibility Staphylococcus aureus [...] Medina MD LAB - MICROBIOLOGY O RDERABLES [facility] [address] [place] [address], [facility] * CULTURE MRSA (01/14/2013 5:51 AM SALAD COUNTER ATTENDANT) Culture Negative for MRSA 01/15/2013 2:44 PM SALAD COUNTER ATTENDANT [facility] Miscellaneous samples (specimen) SPECIMEN FROM NASAL FOSSAE / Unknown 01/14/2013 5:51 AM SALAD COUNTER ATTENDANT 01/14/2013 6:34 AM SALAD COUNTER ATTENDANT Debi Yanez MD LAB - MICROBIOLOGY O RDERABLES [facility] [address] [place], [place] [address], [facility] * CT SOFT TISSUE NECK WITH CONTRAST (01/13/2013 3:06 PM SALAD COUNTER ATTENDANT) Anatomical Region Laterality Modality Head Computed Tomogra phy 01/13/2013 3:13 PM SALAD COUNTER ATTENDANT Impressions 01/13/2013 3:13 PM SALAD COUNTER ATTENDANT EXTENSIVE CELLULITIS OVERLYING THE CHIN AND RIGHT HALF OF THE MANDIBLE MULTIFOCAL LYMPHADENOPATHY WHICH IS PRESUMABLY REACTIVE SPHENOID SINUS DISEASE Narrative 01/13/2013 3:13 PM SALAD COUNTER ATTENDANT CT neck with intravenous contrast CLINICAL INDICATION: [...] The lung apices are clear. Procedure Note Luke Orellana MD - 01/13/2013 CT neck with intravenous [...] IS PRESUMABLY REACTIVE SPHENOID SINUS DISEASE Rhonda Tomlinson PA-C CT ORDERABLES * CULTURE BLOOD (01/13/2013 2:27 PM SALAD COUNTER ATTENDANT) Culture No Growth 01/19/2013 6:36 AM T [facility] Blood specimen (specimen) PERIPHERAL BLOOD / Unknown 01/13/2013 2:27 PM SALAD COUNTER ATTENDANT 01/13/2013 3:21 PM SALAD COUNTER ATTENDANT Rhonda Tomlinson PA-C LAB - MICROBIOLOGY ORDERABLES Performing Organization Address [facility] Co de Phone Number [facility] [address] * CULTURE BLOOD (01/13/2013 1:40 PM SALAD COUNTER ATTENDANT) Culture No Growth 01/19/2013 6:36 AM [facility] Blood specimen (specimen) PERIPHERAL BLOOD / Unknown 01/13/2013 1:40 PM SALAD COUNTER ATTENDANT 01/13/2013 1:53 PM SALAD COUNTER ATTENDANT Rhonda Tomlinson PA-C LAB - MICROBIOLOGY ORDERABLES Performing Organization Address [facility] Co de Phone Number [facility] [address] [place] [address] * (ABNORMAL) COMPREHENSIVE METABOLIC PANEL (01/13/2013 1:39 PM SALAD COUNTER ATTENDANT) Glucose 91 74 - 106 mg/dL 01/13/2013 2:27 PM SALAD COUNTER ATTENDANT [facility] Sodium 139 136 - 145 mmol/L 01/13/2013 2:27 PM SALAD COUNTER ATTENDANT [facility] Potassium 3.8 3.5 - 5.1 mmol/L 01/13/2013 2:27 PM SALAD COUNTER ATTENDANT [facility] Chloride 104 98 - 107 mmol/L 01/13/2013 2:27 PM [facility] CO2 25 22 - 31 mmol/L 01/13/2013 2:27 PM [facility] Calcium 9.1 8.5 - 10.1 mg/dL 01/13/2013 2:27 PM [facility] Anion Gap 10 5 - 15 mmol/L 01/13/2013 2:27 PM [facility] BUN 9 7 - 21 mg/dL 01/13/2013 2:27 PM [facility] Creatinine 0.67 0.50 - 1.30 mg/dL 01/13/2013 2:27 PM [facility] eGFR by MDRD >60 >60 ml/min/1.7 3m2 01/13/2013 2:27 PM [facility] eGFR by MDRD >60 >60 ml/min/1.7 3m2 01/13/2013 2:27 PM [facility] Alkaline Phosphatase 79 38 - 126 U/L 01/13/2013 2:27 PM [facility] ALT 26 12 - 78 U/L 01/13/2013 2:27 PM [facility] AST 19 5 - 40 U/L 01/13/2013 2:27 PM [facility] Protein Total 8.7(H) 6.4 - 8.2 gm/dL 01/13/2013 2:27 PM [facility] Albumin 4.3 3.4 - 5.0 gm/dL 01/13/2013 2:27 PM [facility] Bilirubin Total 0.4 0.2 - 1.0 mg/dL 01/13/2013 2:27 PM [facility] Blood specimen (specimen) BLOOD SPECIMEN / Unknown 01/13/2013 1:39 PM [facility] 01/13/2013 1:53 PM [facility] Rhonda Tomlinson PA-C LAB - CHEMISTRY ORD ERABLES [facility] [address] [place] [address] * (ABNORMAL) CBC W AUTO DIFFERENTIAL (01/13/2013 1:39 PM [facility]) WBC 5.5 4.4 - 10.7 x10^9/L 01/13/2013 2:01 PM [facility] RBC 4.59 3.80 - 5.40 x10^12/L 01/13/2013 2:01 PM [facility] Hemoglobin 13.1 12.0 - 17.6 g/dL 01/13/2013 2:01 PM [facility] Hematocrit 37.9 35.2 - 51.7 % 01/13/2013 2:01 PM [facility] MCV 82.6 80.7 - 98.3 fl 01/13/2013 2:01 PM [facility] MCH 28.5 26.7 - 34.0 pg 01/13/2013 2:01 PM [facility] MCHC 34.6 30.8 - 35.9 gm/dL 01/13/2013 2:01 PM [facility] Platelet Count 232 153 - 416 x10^9/L 01/13/2013 2:01 PM [facility] RDW-CV 13.1 12.1 - 14.9 % 01/13/2013 2:01 PM [facility] Neutrophils % 43(L) 44 - 73 % 01/13/2013 2:01 PM [facility] Lymphocytes % 42 20 - 43 % 01/13/2013 2:01 PM [facility] Monocytes % 9 5 - 13 % 01/13/2013 2:01 PM [facility] Eosinophils % 6 0 - 6 % 01/13/2013 2:01 PM [facility] Basophils % 0 0 - 2 % 01/13/2013 2:01 PM [facility] Immature Granulocytes 0.2 0 - 1 % 01/13/2013 2:01 PM [facility] Neutrophil Absolute 2.39 x10^9/L 01/13/2013 2:01 PM [facility] Lymphocytes Absolute 2.31 1.07 - 3.94 x10^9/L 01/13/2013 2:01 PM [facility] Monocytes Absolute 0.47 0.26 - 1.07 x10^9/L 01/13/2013 2:01 PM [facility] Eosinophils Absolute 0.31 0 - 0.47 x10^9/L 01/13/2013 2:01 PM [facility] Basophils Absolute 0.02 0 - 0.08 x10^9/L 01/13/2013 2:01 PM [facility] Immature Granulocytes Absolute 0.01 0.00 - 0.06 x10^9/L 01/13/2013 2:01 PM SALAD COUNTER ATTENDANT [facility] nRBC Auto 0 01/13/2013 2:01 PM SALAD COUNTER ATTENDANT [facility] Blood specimen (specimen) BLOOD SPECIMEN / Unknown 01/13/2013 1:39 PM SALAD COUNTER ATTENDANT 01/13/2013 1:54 PM SALAD COUNTER ATTENDANT Rhonda Flash Tomlinson PA-Flash LAB - HEMATOLOGY OR DERABLES Performing Organization Address City/State/[facility] Co de Phone Number [facility] [address] [place] [address] documented in this encounter Visit Diagnoses Diagnosis Cellulitis- Primary Cellulitis and abscess of unspecified site Abscess Cellulitis and abscess of unspecified site documented in this encounter Administered Medications Inactive Administered Medications - up to 3 most recent administrations Medication Order MAR Action Action Date Dose Rate Site 0.9% NaCl infusion at 75 mL/hr, Intravenous, CONTINUOUS, Starting on Sun01/13/13 at 1530, Until Sun01/15/13 at 1655 $ New Bag/Syringe 01/15/2013 2:00 AM SALAD COUNTER ATTENDANT 75 mL/h r $ New Bag/Syringe 01/14/2013 6:09 AM SALAD COUNTER ATTENDANT 75 mL/ hr darunavir (PREZISTA) tablet 800 mg 800 mg, Oral, DAILY WITH BREAKFAST, First dose on Sun01/14/13 at 1445, Until Discontinued, Dose with ritonavir Do not crush, chew, or cut in half. $ Given 01/15/2013 8:48 AM SALAD COUNTER ATTENDANT 800 mg $ Given 01/14/2013 4:41 PM SALAD COUNTER ATTENDANT 800 mg diphenhydrAMINE (BENADRYL) injection 25 mg 25 mg, Intravenous, EVERY 6 HOURS PRN, Itching, Allergies, Starting on Sun01/13/13 at 2155, Until Sun01/15/13 at 1655, Max intravenous rate = 25 mg/min $ Given 01/14/2013 5:24 PM SALAD COUNTER ATTENDANT 25 mg $ Given 01/14/2013 6:01 AM SALAD COUNTER ATTENDANT 25 mg $ Given 01/13/2013 11:04 PM SALAD COUNTER ATTENDANT 25 mg emtricitabine-tenofovir (TRUVADA) tablet 1 Tab 1 tablet, Oral, DAILY, First dose on Sun01/14/13 at 0900, Until Discontinued $ Given 01/15/2013 8:48 AM SALAD COUNTER ATTENDANT 1 tablet $ Given 01/14/2013 10:48 AM SALAD COUNTER ATTENDANT 1 tablet heparin injection 5,000 Units 5,000 Units, Subcutaneous, 2 TIMES DAILY, First dose on Sun01/13/13 at 2215, Until Discontinued $ Given 01/15/2013 8:48 AM SALAD COUNTER ATTENDANT 5,000 Units Abdominal Tissue $ Given 01/14/2013 8:54 PM SALAD COUNTER ATTENDANT 5,000 Units A bdominal Tissue $ Given 01/14/2013 9:07 AM SALAD COUNTER ATTENDANT 5,000 Units A bdominal Tissue hydrocodone-acetaminophen (NORCO) 5-325 MG tablet 1 Tab 1 tablet, Oral, ONCE, 1 dose, On Sun01/13/13 at 1345, Maximum allowable Acetaminophen amount = 4 Grams (4000 mg) / 24 hours. $ Given 01/13/2013 1:32 PM SALAD COUNTER ATTENDANT 1 tablet hydrocodone-acetaminophen (NORCO) 5-325 MG tablet 1-2 Tab 1-2 tablet, Oral, EVERY 4 HOURS PRN, Moderate Pain, Starting on Sun01/13/13 at 2143, Until Sun01/15/13 at 1655, Maximum allowable Acetaminophen amount = 4 Grams (4000 mg) / 24 hours. $ Given 01/15/2013 8:52 AM SALAD COUNTER ATTENDANT 2 tablets $ Given 01/14/2013 8:55 PM SALAD COUNTER ATTENDANT 2 tablets $ Given 01/14/2013 2:40 PM SALAD COUNTER ATTENDANT 2 tablets iohexol (OMNIPAQUE 350) contrast Intravenous, CONTRAST ONCE, Starting on Sun01/13/13 at 1453, Until Sun01/15/13 at 1452 $ Given 01/13/2013 2:54 PM SALAD COUNTER ATTENDANT 80 mL Lef t Arm morphine injection 2 mg 2 mg, Intravenous, EVERY 4 HOURS PRN, Pain, Starting on Sun01/13/13 at 2142, Until Sun01/15/13 at 1655, For severe pain (pain scale score of 7-10) $ Given 01/14/2013 6:02 AM SALAD COUNTER ATTENDANT 2 mg $ Given 01/13/2013 10:51 PM SALAD COUNTER ATTENDANT 2 mg ondansetron (ZOFRAN) injection 4 mg 4 mg, Intravenous, EVERY 4 HOURS PRN, Nausea/Vomiting, Starting on Sun01/13/13 at 1459, Until Sun01/15/13 at 1655 $ Given 01/15/2013 1:44 PM SALAD COUNTER ATTENDANT 4 mg $ Given 01/13/2013 11:03 PM SALAD COUNTER ATTENDANT 4 mg piperacillin - tazobactam (ZOSYN) IVPB 3.375 g 3.375 g, at 200 mL/hr, Intravenous, EVERY 6 HOURS, First dose on Sun01/13/13 at 1415, Until Discontinued $ Given 01/14/2013 2:30 PM SALAD COUNTER ATTENDANT 3.375 g 200 mL/hr $ Given 01/14/2013 8:11 AM SALAD COUNTER ATTENDANT 3.375 g 200 mL/hr $ Given 01/14/2013 2:09 AM SALAD COUNTER ATTENDANT 3.375 g 200 mL/hr ritonavir (NORVIR) tablet 100 mg 100 mg, Oral, DAILY, First dose on Sun01/14/13 at 0900, Until Discontinued, Do not crush, chew, or cut in half. $ Given 01/15/2013 8:48 AM SALAD COUNTER ATTENDANT 100 mg $ Given 01/14/2013 9:06 AM SALAD COUNTER ATTENDANT 100 mg vancomycin (VANCOCIN) 1,500 mg in NaCl 0.9 % IVPB 1,500 mg, at 250 mL/hr, Intravenous, EVERY 12 HOURS, First dose (after last reorder) on Sun01/14/13 at 0500, Until Discontinued, Pharmacy to manage dosing regimen Refrigerate $ Given 01/15/2013 6:30 AM SALAD COUNTER ATTENDANT 1,500 mg 250 mL/hr $ Given 01/14/2013 5:29 PM SALAD COUNTER ATTENDANT 1,500 mg 250 mL/hr $ Given 01/14/2013 5:54 AM SALAD COUNTER ATTENDANT 1,500 mg 250 mL/hr vancomycin (VANCOCIN) 2,500 mg in NaCl 0.9 % IVPB 2,500 mg, at 200 mL/hr, Intravenous, ONCE, 1 dose, On Sun01/13/13 at 1500, Refrigerate $ Given 01/13/2013 5:26 PM SALAD COUNTER ATTENDANT 2,500 mg 200 mL/hr documented in this encounter Active and Recently Administered Medications Times are shown in SALAD COUNTER ATTENDANT. Scheduled Medication Order 01/13/2013 01/14/2013 01/15/2013 darunavir (PREZISTA) tablet 800 mg 800 mg, Oral, DAILY WITH BREAKFAST, First dose on Sun01/14/13 at 1445, Until Discontinued, Dose with ritonavir Do not crush, chew, or cut in half. 5985 ($ Given - Provider: Maryjane Yusuf RN) 0841 ($ Given - Provider: Radha Villa) emtricitabine-tenofovir (TRUVADA) tablet 1 Tab (CANCELED) 1 tablet, Oral, DAILY, First dose on Sun01/14/13 at 0900, Until Discontinued 1048 ($ Given - Provider: Hailey Francisco RN) 0848 ($ Given - Provider: Radha Villa) heparin injection 5,000 Units (CANCELED) 5,000 Units, Subcutaneous, 2 TIMES DAILY, First dose on Sun01/13/13 at 2215, Until Discontinued 2308 ($ Given - Provider: Jodee Barnes RN) 0907 ($ Given - Provider: Hailey Francisco RN)2054 ($ Given - Provider: Crystal Odell RN) 0848 ($ Given - Provider: Radha Villa) hydrocodone-acetaminophe n (NORCO) 5-325 MG tablet 1 Tab (COMPLETED) 1 tablet, Oral, ONCE, 1 dose, On Sun01/13/13 at 1345, Maximum allowable Acetaminophen amount = 4 Grams (4000 mg) / 24 hours. 1332 ($ Given - Provider: Tanesha Kelly RN) iohexol (OMNIPAQUE 350) contrast () Intravenous, CONTRAST ONCE, Starting on Sun01/13/13 at 1453, Until Sun01/15/13 at 1452 1454 ($ Given - Provider: Tali Whittaker, RT) piperacillin - tazobactam (ZOSYN) IVPB 3.375 g (CANCELED) 3.375 g, at 200 mL/hr, Intravenous, EVERY 6 HOURS, First dose on Sun01/13/13 at 1415, Until Discontinued 1415 (Due)1800 (Due) 0209 ($ Given - Provider: Jodee Barnes RN)0239 (Rx Stopped - Provider: Jodee Barnes RN)0811 ($ Given - Provider: Hailey Francisco RN)0841 (Rx Stopped - Provider: Hailey Francisco, HUNTER)1430 ($ Given - Provider: Maryjane Yusuf RN)1500 (Rx Stopped - Provider: Maryjane Yusuf RN) ritonavir (NORVIR) tablet 100 mg (CANCELED) 100 mg, Oral, DAILY, First dose on Sun01/14/13 at 0900, Until Discontinued, Do not crush, chew, or cut in half. 0906 ($ Given - Provider: Hailey Francisco, HUNTER) 0848 ($ Given - Provider: Radha Villa) vancomycin (VANCOCIN) 1,500 mg in NaCl 0.9 % IVPB (CANCELED) 1,500 mg, at 250 mL/hr, Intravenous, EVERY 12 HOURS, First dose (after last reorder) on Sun01/14/13 at 0500, Until Discontinued, Pharmacy to manage dosing regimen Refrigerate 0554 ($ Given - Provider: Jodee Barnes RN)0754 (Rx Stopped - Provider: Hailey Francisco, HUNTER)1729 ($ Given - Provider: Maryjane Yusuf, HUNTER)1940 (Rx Stopped - Provider: Crystal Odell RN) 0630 ($ Given - Provider: Shae Zaldivar, HUNTER)0902 (Rx Stopped - Provider: Radha Villa) vancomycin (VANCOCIN) 2,500 mg in NaCl 0.9 % IVPB (COMPLETED) 2,500 mg, at 200 mL/hr, Intravenous, ONCE, 1 dose, On Sun01/13/13 at 1500, Refrigerate 1726 ($ Given - Provider: Alec Castillo RN) 0200 (Rx Stopped - Provider: Jodee Barnes RN) Continuous Medication Order 01/13/2013 01/14/2013 01/15/2013 0.9% NaCl infusion (CANCELED) at 75 mL/hr, Intravenous, CONTINUOUS, Starting on Sun01/13/13 at 1530, Until Sun01/15/13 at 1655 0609 ($ New Bag/Syringe - Provider: Jdoee Barnes RN) 0200 ($ New Bag/Syringe - Provider: Shae Zaldivar, HUNTER) PRN Medication Order 01/13/2013 01/14/2013 01/15/2013 diphenhydrAMINE (BENADRYL) injection 25 mg (CANCELED) 25 mg, Intravenous, EVERY 6 HOURS PRN, Itching, Allergies, Starting on Sun01/13/13 at 2155, Until Sun01/15/13 at 1655, Max intravenous rate = 25 mg/min 2304 ($ Given - Provider: Jodee Barnes RN) 0601 ($ Given - Provider: Jodee Barnes RN)1724 ($ Given - Provider: Maryjane Yusuf RN) hydrocodone-acetaminophe n (NORCO) 5-325 MG tablet 1-2 Tab 1-2 tablet, Oral, EVERY 4 HOURS PRN, Moderate Pain, Starting on Sun01/13/13 at 2143, Until Sun01/15/13 at 1655, Maximum allowable Acetaminophen amount = 4 Grams (4000 mg) / 24 hours. 1440 ($ Given - Provider: Maryjane Yusuf RN)2055 ($ Given - Provider: Crystal Odell RN) 0852 ($ Given - Provider: Radha Villa) morphine injection 2 mg (CANCELED) 2 mg, Intravenous, EVERY 4 HOURS PRN, Pain, Starting on Sun01/13/13 at 2142, Until Sun01/15/13 at 1655, For severe pain (pain scale score of 7-10) 2251 ($ Given - Provider: Jodee Barnes RN) 0602 ($ Given - Provider: Jodee Barnes RN) ondansetron (ZOFRAN) injection 4 mg (CANCELED) 4 mg, Intravenous, EVERY 4 HOURS PRN, Nausea/Vomiting, Starting on Sun01/13/13 at 1459, Until Sun01/15/13 at 1655 2303 ($ Given - Provider: Jodee Barnes RN) 1344 ($ Given - Provider: Radha Vlila) documented in this encounter Care Teams Yarn Skeins Examiner Relationship Specialty Start Date End Date Pauly Kulkarni APRN-FINANCE PROFESSIONAL [address] [place] [address] PCP - General Nurse Practitioner 01/13/13 documented as of this encounter
--- OUTSIDE RECORDS SUMMARY | 2024-11-22 10:49 | XMS_ITS | Referral Summary ---
Author Organization [facility] Address [address] [facility] [place] [address] Care Team Providers Care Spring Former Name Role Phone Pauly Kulkarni [facility] Source Comments [facility],non-owned Affiliates and Associated Physician Practices is amultiple site organization consisting of ambulatory clinics and hospital sitesin [place], [place], [place] and [place]. This disclosure is being madepursuant to the Care Everywhere program and may not contain all information available regarding this patient. Last updated 18.[facility] [employer] Allergies No known active allergies Medications * [...] Comments Blood Pressure 104/65 01/15/2013 2:28 PM DOG FOOD SHREDDER OPERATOR Pulse 76 01/15/2013 2:28 PM DOG FOOD SHREDDER OPERATOR Temperature 36.7 ??C (98.1 ??F) 01/15/2013 2:28 PM CS T Respiratory Rate 16 01/15/2013 2:28 PM DOG FOOD SHREDDER OPERATOR Oxygen Saturation 97% 01/15/2013 2:28 PM DOG FOOD SHREDDER OPERATOR Inhaled Oxygen Concentration - - Weight 99.8 kg (220 lb) 01/13/2013 11:55 AM DOG FOOD SHREDDER OPERATOR Height 182.9 cm (6') 01/13/2013 11:55 AM DOG FOOD SHREDDER OPERATOR Body Mass Index 29.84 01/13/2013 11:55 AM DOG FOOD SHREDDER OPERATOR Plan of Treatment Not on file Advance Directives * FULL RESUSCITATION (Latest Code Status on File) Date Activated Date Inactivated Comments 01/13/2013 3:00 PM 01/15/2013 4:55 PM Care Teams Spring Former Relationship Specialty Start Date End Date Pauly Kulkarni, PRIVATE DETECTIVE-LAWYER CRIMINAL [address] [place] [address] PCP - General Nurse Practitioner 01/13/13
--- OUTSIDE RECORDS SUMMARY | 2024-11-22 10:49 | XMS_ITS | Clinical Summary ---
Author Organization [facility] Address [address] [place] [address]. [place], [place] [address] [place] [address] Care Team Providers Care Automotive Project Engineer Name Role Phone Carlos Bonilla MD Primary Care Prov ider Allergies No known active allergies Medications atorvastatin (LIPITOR) 10 MG tablet Take 1 tablet (10 mg total) by mouth daily. 3 Active cetirizine (ZYRTEC) 10 MG tablet Take 1 tablet (10 mg total) by mouth daily. 4 Active PREZCOBIX 800-150 MG tablet 4 Active TIVICAY 50 MG tablet 3 Active HYDROcodone-acet aminophen (NORCO) 5-325 MG tablet Take 1 tablet by mouth every 12 (twelve) hours as needed. 3 Active topiramate (TOPAMAX) 25 MG tabletIndication s:Class 1 obesity due to excess calories with serious comorbidity and body mass index (BMI) of 32.0 to 32.9 in adult SIG: one pill (25mg) po qd for two weeks, then if tolerating can increase to one pill (25mg) po BID 60 tablet 1 4 Active Phentermine HCl (LOMAIRA) 8 MG TabIndications:C lass 1 obesity due to excess calories with serious comorbidity and body mass index (BMI) of 32.0 to 32.9 in adult SI/2 pill (4mg) po qam for two weeks, then if tolerating increase to one pill (8mg) po QAM 30 tablet 4 Active Active Problems Problem Noted Date Diagnosed Date Class 1 obesity due to exces s calories with serious comorbidity and body mass index (BMI) of 30.0 to 30.9 in adult 09/04/2023 Mixed hyperlipidemia 09/04/2023 Family history of sleep apnea 08/09/2022 Fatigue 08/09/2022 Psychophysiological insomnia 08/09/2022 Obstructive sleep apnea 07/14/2022 Overview (09/04/2023): Last Assessment & Plan: Patient experienced apneic episode during colonoscopy. Referred to sleep medicine for sleep study. 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 HIV infection ([facility]) 04/16/2018 Overview (09/04/2023): Last Assessment & Plan: Continue Symtuza/Tivicay Patient would like consideration for Cabenuva- this is questionable given his past resistance history, however, will have pharmacy team evaluate. Will consider simplification if possible if patient is virally suppressed today. 100% adherence encouraged to maintain viral suppression and prevent resistance. Undetectable = untransmittable. Counseling for risk reduction, adherence and pre-conception provided. Cellulitis 01/14/2013 Resolved Problems Problem Noted Date Diagnosed Date Resolved Date Nonsmoker 08/09/2022 09/10/2023 Colon cancer screening 10/06/202109/10 Encounters Date Type Department Care Team Description 10/03/2024 Telephone [facility] [address], [address] [place] [address] Ashanti Woo MD Question 10/03/2024 Telephone [facility] [address] [facility], [address] [place] [phone] Yolette VII, Carlos Manzano MD Question from Last 3 Months Immunizations Name Administration Dates Next Due Fluzone 6 Months+ Quad (0.5 mL Prefilled Syringe) 09/04/2023 Hepatitis A (Generic) 12/31/2012 Hepatitis B (Generic: Adult) 06/02/2014 Influenza (Generic) 08/16/2016, 4,08/06/2012,2010 Influenza Adult (Generic) 10/29/2020,10/28/2019 MODERNA COVID-19 (12+) MRNA, LNP-S, PF, 100 MCG/ 0.5 ML DOSE 01/29/2021,01/01/2021 PFIZER COVID-19 (ORIGINAL FORMULATION, PURPLE CAP) mRNA, LNP-S, PF, 30 MCG/0.3 ML DOSE 10/05/2021 Pneumococcal (Pneumovax 23) 06/28/2021, 3 Pneumococcal (Prevnar 13) 06/02/2014 Smallpox & Monkeypox Vac (Jynneos) 02/19/2023, Tdap (Generic) 07/05/2018 Social History Tobacco Use Types Packs/Day Years Used Date Smoking Tobacco: Never Passive Smoke Exposure: Never Smokeless Tobacco: Never Tobacco Cessation:Counseling Given: No Alcohol Use Standard Drinks/Week Comments Yes 0 [...] Sign Reading Time Taken Comments Blood Pressure 128/79 04/21/2024 9:35 AM CDT Pulse 71 04/21/2024 9:35 AM CDT Temperature 36.7 ??C (98 ??F) 04/21/2024 9:35 AM CDT Respiratory Rate 16 04/21/2024 9:35 AM CDT Oxygen Saturation 97% 04/21/2024 9:35 AM CDT Inhaled Oxygen Concentration - - Weight 101.2 kg (223 lb) 04/21/2024 9:35 AM CDT Height 182.9 cm (6') 04/21/2024 9:35 AM CDT Body Mass Index 30.24 04/21/2024 9:35 AM CDT Plan of Treatment Upcoming Encounters Date Type Department Care Team (Late st Contact Info) Description 12/09/2024 9:20 AM COUNTY SHERIFF Office Visit [facility] Medical [facility] Family Medicine - [address], [address] [place] [phone] Yolette VII, Carlos Manzano MD [address] [facility] [place] [address] [place] [phone] Health Maintenance Due Date Last Done Comments Colorectal Cancer Screening Colonoscopy (10 Years) 1970 Meningococcal Vaccine (1 - Risk 2-dose series) 1972 Annual Physical 1973 Hepatitis C 1988 Zoster Vaccines (1 of 2) 1989 Hepatitis B Vaccines (2 of 3 - 19+ 3-dose series) 06/30/2014 06/02/2014 COVID-19 Vaccine (4 - season) 2024 10/05/2021, 01/29/2021, 01/01/2021 Influenza Adult (#1) 2024 09/04/2023, 10/29/2020, 10/28/2019, Additional history exists DTaP, Tdap and Td Vaccines (2 - Td or Tdap) 07/05/2028 07/05/2018 Pneumococcal Vaccine: Pediatrics (0 to 5 Years) and At-Risk Patients (6 to 64 Years) (4 of 4 - PPSV23 or PCV20) 2035 06/28/2021, 06/02/2014, 12/31/2012 RSV Immunizations Under 20 Months Aged Out No longer eligible based on patient's age to complete this topic Insurance [facility] Care Teams Automotive Project Engineer Relationship Specialty Start Date End Date Yolette VII, Carlos Manzano MD [address] [place] [id number] PCP - General FAMILY PRACTICE 10/03/24
--- OUTSIDE RECORDS SUMMARY | 2024-11-22 10:50 | XMS_ITS | Encounter Summary ---
Author Organization [facility] Address On license of [facility] [facility] [place] [address] [place] [address] Care Team Providers Care Manager Trainee Name Role Phone , Generic Conversion Primary Care Provider Unavailable Antoinette Riley Primary Care Provider [phone] Ashanti Woo MD Primary Care Provider [phone] Carlos Bonilla MD Primary Care Prov ider Encounter Details Date Type Department Care Team (Late st Contact Info) Description 09/15/2017 [place] [address] , Generic Conversion, Social History Tobacco Use Types Packs/Day Years Used Date Smoking Tobacco: Never Assessed Sex and Gender Information Value Date Recorded Sex Assigned at Not on file Legal Sex Male 6:53 PM CDT Gender Identity Not on file Sexual Orientation Not on file documented as of this encounter Plan of Treatment Upcoming Encounters Date Type Department Care Team (Late st Contact Info) Description 12/09/2024 9:20 AM WINDOW GLAZIER HELPER Office Visit [facility] Medical Group Family Medicine - [place] [address] [facility], [address] [place] [address] Carlos Bonilla MD [address] [facility] [place], [place] [phone] documented as of this encounter Visit Diagnoses Not on filedocumented in this encounter Care Teams Manager Trainee Relationship Specialty Start Date End Date Rober Christianson MD PCP - General 12/04/15 Antoinette Riley PA [address] DIV IM INFECTIOUS DISEASE, [address] [address] PCP - General PHYSICIAN TRUER PINION AND WHEEL 09/04/23 10/16/23 Ashanti Woo MD [address] DIV IM INFECTIOUS DISEASE, [address] [address] PCP - General FAMILY PRACTICE 10/17/23 10/02/24 Yolette Carlos LIVINGSTON MD [address] [place] [id number] PCP - General FAMILY PRACTICE 10/03/24 documented as of this encounter
--- OUTSIDE RECORDS SUMMARY | 2024-11-22 10:50 | XMS_ITS | Encounter Summary ---
Author Organization [facility] Address [address] [place] [address]. [place], [place] [address] [place] [address] Care Team Providers Care Physics Instructor Name Role Phone Carlos Bonilla MD Primary Care Prov ider Reason for Visit * Reason Onset Date Comments Question 10/03/2024 Encounter Details Date Type Department Care Team (Late Contact Info) Description 10/03/2024 Telephone [facility] [address] [facility], [address] [place] [phone] Carlos Bonilla MD [address] [place] [address], [address] [address] Question Social History Tobacco Use Types Packs/Day [...] st Contact Info) Description 12/09/2024 9:20 AM LABORER MINE Office Visit [facility] [address] [facility], [address] [place] [address] Carlos Bonilla MD [address] [place] [phone] documented as of this encounter Visit Diagnoses Not on filedocumented in this encounter Care Teams Physics Instructor Relationship Specialty Start Date End Date Carlos Bonilla MD [address] [place] [phone] PCP - General FAMILY PRACTICE 10/03/24 documented as of this encounter
--- OUTSIDE RECORDS SUMMARY | 2024-11-22 10:50 | XMS_ITS | Encounter Summary ---
Author Organization [facility] Address [address] [place] [address]. [place], [place] [phone] [place] [address] Care Team Providers Care Small Engine Technician Name Role Phone Mahendra Sinclair MD Primary Care Provider [phone] Reason for Visit * Reason Comments Follow Up Weight management fo llow-up Encounter Details Date Type Department Care Team (Late st Contact Info) Description 10/17/2023 12:40 PM IT TECHNICAL SPECIALIST Office Visit [facility] Medical [facility] Family Medicine - [place] [address] [facility], [address] [place] [phone] [place] [address] [place] [address] Follow Up (Weight management follow-up ) Social History Tobacco Use Types Packs/Day Years Used Date Smoking Tobacco: Never Passive Smoke Exposure: Never Smokeless Tobacco: Never Tobacco Cessation:Counseling Given: No Alcohol Use Standard Drinks/Week Comments Yes 0 (1 standard drink = 0.6 oz pur e alcohol) social Sex and Gender Information Value Date Recorded Sex Assigned at Not on file Legal Sex Male 6:53 PM CDT Gender Identity Not on file Sexual Orientation Not on file documented as of this encounter Last Filed Vital Signs Vital Sign Reading Time Taken Comments Blood Pressure 120/84 10/17/2023 12:55 PM IT TECHNICAL SPECIALIST Pulse 85 10/17/2023 12:55 PM IT TECHNICAL SPECIALIST Temperature 36.6 ??C (97.9 ??F) 10/17/2023 12:[address] Respiratory Rate 14 10/17/2023 12:55 PM IT TECHNICAL SPECIALIST Oxygen Saturation 96% 10/17/2023 12:55 PM IT TECHNICAL SPECIALIST Inhaled Oxygen Concentration - - Weight 102.1 kg (225 lb) 10/17/2023 12:55 PM IT TECHNICAL SPECIALIST Height - - Body Mass Index 30.52 09/04/2023 2:02 PM CDT documented in this encounter Patient Instructions * Patient Instructions* Mahendra Sinclair MD - 10/17/2023 12:40 PM IT TECHNICAL SPECIALIST Check all labels carefully-work to reduce sugars, be mindful of sugar content, terry high fructose corn syrup Schedule next appointment with me for a 40 min spot in 8-10 weeks (to establish care and f/u on weight management). You will need to call to refill the phentermine prior Walk and increase days of the week that you walk Continue to drink plenty of water each day Continue to be mindful of food choices, make healthier choices TECHNICAL SPECIALIST TECHNICAL SPECIALIST * Attachments The following attachments cannot be sent through Care Everywhere. * The New Food Label (Spanish) documented in this encounter Progress Notes * Mahendra Sinclair MD - 10/17/2023 12:40 PM CST Images from the original note were not included. Office Progress Note Encounter Date: 10/17/2023 Reason for Visit: Follow Up (Weight management follow-up ) History of Present Illness: WM f/u Pt has had one month of 15mg phentermine and will picker machine operator his 30mg dose to start today for the nexttwo mos. He has lost 13# or 5% TBW thus far. No SE like racing heart, CP, and bp and p remain wnl. No anxiety or insomnia. Did have more dry mouth so started drinking more water. He has noticed some decreased cravings for junk foods and able to be more mindful. He has stopped soda since I saw him last. He does drink high C orange so I did ask him to stop thisand check all labels. He did start walking, one per week, he knows he needs to do more and thinks he can increase it. He does enjoy it. He has done better with snacking. Doing much better with candies. Typically has a sweet tooth and has really cut down on cinnamon rolls. Eating gummy bears so again asked him to check the label. He has changed to baked chips for a snack. He did look into Infor maru, he is not using it but did find some of the resources helpful so is using it occasionally. Discussed using the 30mg dose for the next 2-3 mos then decide if we need to transition to skilled nursing med management. ROS: Review of Systems Constitutional: Negative for chills, fatigue, fever and unexpected weight change. HENT: Negative for congestion, ear pain, rhinorrhea, sinus pain, sore throat and trouble swallowing. Eyes: Negative for pain, itching and visual disturbance. Respiratory: Negative for cough, shortness of breath and wheezing. Cardiovascular: Negative for chest pain, palpitations and leg swelling. Gastrointestinal: Negative for abdominal pain, blood in stool, constipation, diarrhea, nausea and vomiting. Endocrine: Negative for polydipsia, polyphagia and polyuria. Genitourinary: Negative for dysuria, flank pain, hematuria and urgency. Musculoskeletal: Negative for arthralgias, back pain, gait problem and joint swelling. Skin: Negative for rash. Neurological: Negative for dizziness, syncope, weakness, light-headedness and headaches. Hematological: Negative for adenopathy. Does not bruise/bleed easily. Psychiatric/Behavioral: Negative for confusion, sleep disturbance and suicidal ideas. The patient is not nervous/anxious. Medications: Current Outpatient Medications: atorvastatin (LIPITOR) 10 MG tablet, Take 1 tablet (10 mg total) by mouth daily., Disp: , Rfl: Phentermine HCl 30 MG Cap, Take 30 mg by mouth daily with breakfast., Disp: 30 capsule, Rfl: 0 Allergies: Review of patient's allergies indicates: No Known Allergies Medical History: History reviewed. No pertinent past medical history. Surgical History: History reviewed. No pertinent surgical history. Social History: Social History Socioeconomic History Marital status: Single Tobacco Use Smoking status: Never Passive exposure: Never Smokeless tobacco: Never Vaping Use Vaping Use: Never used Substance and Sexual Activity Alcohol use: Yes Comment: social Drug use: Never Family History: No family history on file. PE: Physical Exam Vitals and nursing note reviewed. Constitutional: General: He is not in acute distress. Appearance: Normal appearance. He is not toxic-appearing. HENT: Head: Normocephalic. Right Ear: External ear normal. Left Ear: External ear normal. Nose: Nose normal. Mouth/Throat: Mouth: Mucous membranes are moist. Eyes: Conjunctiva/sclera: Conjunctivae normal. Pupils: Pupils are equal, round, and reactive to light. Neck: Thyroid: No thyromegaly. Vascular: No JVD. Cardiovascular: Rate and Rhythm: Normal rate and regular rhythm. Heart sounds: No murmur heard. Pulmonary: Effort: Pulmonary effort is normal. No respiratory distress. Breath sounds: Normal breath sounds. No wheezing. Abdominal: General: Bowel sounds are normal. Palpations: Abdomen is soft. There is no mass. Tenderness: There is no abdominal tenderness. There is no guarding or rebound. Musculoskeletal: General: No deformity. Normal range of motion. Cervical back: Normal range of motion and neck supple. Lymphadenopathy: Cervical: No cervical adenopathy. Skin: General: Skin is warm and dry. Findings: No rash. Neurological: General: No focal deficit present. Mental Status: He is alert and oriented to person, place, and time. Cranial Nerves: No cranial nerve deficit. Motor: No abnormal muscle tone. Coordination: Coordination normal. Gait: Gait is intact. Deep Tendon Reflexes: Reflexes normal. Psychiatric: Mood and Affect: Mood and affect normal. Behavior: Behavior normal. Cognition and Memory: Memory normal. Judgment: Judgment normal. Filed Vitals: 10/17/23 1255 BP: 120/84 Pulse: 85 Resp: 14 Temp: 97.9 ??F (36.6 ??C) SpO2: 96% Weight: 102.1 kg (225 lb) Body mass index is 30.52 kg/m??. Procedures: Procedures Diagnoses/Impression: 1. Class 1 obesity due to excess calories with serious comorbidity and body mass index (BMI) of 30.0 to 30.9 in adult Recommendations and Plan: Class 1 obesity -improving. He has already lost 5% TBW. Doing well on phentermine, he will let me know any SE on higher dose. He will add another day or two for walking, and continue to be mindful of food choices and portions. Discussed reading labels, terry looking for added sugars/high fructose corn syrup and avoiding products with these in them. He will see me back in 8-10 weeks. He asked if I would be his pmd as well. He will keep his ID doc at [facility] but I am happy to take him on for primary care. His next appt will be 40 mins so we can est care/make sure he is utd on all health recs, and follow up on his weight. He VU with plan and questions answered. No orders of the defined types were placed in this encounter. There are no discontinued medications. MAHENDRA SINCLAIR MD 10/17/2023 TECHNICAL SPECIALIST documented in this encounter Plan of Treatment Upcoming Encounters Date Type Department Care Team (Late st Contact Info) Description 12/09/2024 9:20 AM IT TECHNICAL SPECIALIST Office Visit [facility] Medical Group Family Medicine - [address], [address] [phone] Yolette VII, Carlos Manzano MD [address] [place] [address], [address] [address] documented as of this encounter Visit Diagnoses Diagnosis Class 1 obesity due to excess calories with serious comorbidity and body mass index (BMI) of 30.0 to 30.9 in adult- Primary documented in this encounter Care Teams Small Engine Technician Relationship Specialty Start Date End Date Mahendra Sinclair MD PCP - General FAMILY PRACTICE 10/17/23 10/02/24 documented as of this encounter
--- OUTSIDE RECORDS SUMMARY | 2024-11-22 10:50 | XMS_ITS | Encounter Summary ---
Author Organization [facility] Address [address] [place] [address]. [place], [place] [id number] [place] [address] Care Team Providers Care Electrical Laboratory Technician Name Role Phone Mahendra Sinclair MD Primary Care Provider [phone] Reason for Visit * Reason Comments Follow Up Wm f/u. [facility] Encounter Details Date Type Department Care Team (Late st Contact Info) Description 04/21/2024 9:40 AM CDT Office Visit [facility] Family Medicine [facility] [address], [address] [place] [phone] [place] [address] [place] [address] Follow Up ([facility]m f/[facility]. [facility]) Social History Tobacco Use Types Packs/Day Years [...] Mass Index 30.24 04/21/2024 9:35 AM CDT documented in this encounter Patient Instructions * Patient Instructions* Mahendra Sinclair MD - 04/21/2024 9:40 AM CDT ER for: more pain, any fever or chills, nausea or vomiting Let your surgeon know what happened when you had sedation for colonoscopy (in care everywhere-my note and under anesthesia note for [facility]). He may want pulm clearance from Dr Colon Let me know when you have recovered from surgery and we can start combo of low dose phentermine andtopamax (approximates the fda approved weight loss drug qsymia) for correction weight management Continue to eat healthier diet, portion control, limit sweets and animal fats Continue to try to walk regularly, 150 mins per week documented in this encounter Progress Notes * Mahendra Sinclair MD - 04/21/2024 9:40 AM CDT Images from the original note were not included. Office Progress Note Encounter Date: 04/21/2024 Reason for Visit: Follow Up ([facility]m f/u. [facility]) History of Present Illness: F/u WM Starting weight 238#-last weight 225#-today 223#. Did 3 mos phentermine. Off med for about a month.He is walking more and trying to monitor diet. He did have stressors of both parents getting ill atsame time (mom hospitalized and dad with prostate CA). We discussed combo of low dose phentermine and topamax. No renal stones, no glaucoma, no sz history, no regular alcohol use. Will check drug inte ractions with HIV med and none were found. He is having surgery for terrell. He went to - ([facility]) a couple days ago for epigastric pain, had CTand then had US. Had gallstones so is seeing a surgeon on Sunday, someone at [facility]. He has disc of US and CT. He is still having pain, now low back in the middle. No N/V, no F/C, no abd pain. He is eating normally. He was not told he had cholecystitis. He has never had surgery but has had sedation for cscope he notes he had to be intubated. We lookedin care everywhere and found the following note from the case: Shortly after procedure start, patient began coughing and laryngospasmed. Dr. Valencia called to room. Attempted to break with positive pressure, successful at first, but then unsuccessful. Copious clear secretions from mouth and nose, so patient continuing to spasm despite suctioning to clear secretions. RSI performed with Succinylcholine and propofol. Grade 3 view with MAC 4. Easy 2 hand mask with OA at this point. Saturations up to 100%. Grade 2b with CMAC video laryngoscope, ETT successfully passed over Bougie. Good ETCO2, breath sounds very wheezy and coarse. ETT suctioned for moderate amountof clear and pink sputum. Albuterol given as well as PEEP from ventilator. Saturations ananda to 100%within a few minutes of intubation. Will monitor for NPPE No h/o dvt, PE, no easy bruising or bleeding. No CP or SOB when he walks flat blocks or stairs. Discussed surgeon may want pulm clearance from Dr Colon. Pt has not discussed this with his pulm prior. ROS: Review of Systems Constitutional: Negative for [...] total) by mouth daily., Disp: , Rfl: cetirizine (ZYRTEC) 10 MG tablet, Take 1 tablet (10 mg total) by mouth daily., Disp: , Rfl: HYDROcodone-acetaminophen (NORCO) 5-325 MG tablet, Take 1 tablet by mouth every 12 (twelve) hours as needed., Disp: , Rfl: PREZCOBIX 800-150 MG tablet, , Disp: , Rfl: TIVICAY 50 MG tablet, , Disp: , Rfl: Phentermine HCl 30 MG Cap, Take 30 mg by mouth daily with breakfast. (Patient not taking: Reported on 04/21/2024), Disp: 30 capsule, Rfl: 0 Allergies: Review of patient's allergies indicates: No Known Allergies Medical History: History reviewed. No pertinent past medical history. Surgical History: History reviewed. No pertinent surgical history. Social History: Social History Socioeconomic History Marital status: Single Tobacco Use Smoking status: Never Passive exposure: Never Smokeless tobacco: Never Vaping Use Vaping status: Never Used Substance and Sexual Activity Alcohol use: Yes [...] tenderness. There is no guarding or rebound. Comments: Min ruq ttp, no rebound/guarding/rigidity, nabs, no distension Musculoskeletal: General: No deformity. Normal range of [...] Memory normal. Judgment: Judgment normal. Filed Vitals: 04/21/24 0935 BP: 128/79 Pulse: 71 Resp: 16 Temp: 98 ??F (36.7 ??C) SpO2: 97% Weight: 101.2 kg (223 lb) Height: 1.829 m (6') Body mass index is 30.24 kg/m??. Procedures: Procedures Diagnoses/Impression: 1. Gallstones 2. Screening for prostate cancer PROSTATE SPECIFIC ANTIGEN,SCREENING 3. Prediabetes HEMOGLOBIN, GLYCOSYLATED 4. Class 1 obesity due to excess calories with serious comorbidity and body mass index (BMI) of 30.0 to 30.9 in adult 5. Preoperative clearance Recommendations and Plan: Gallstones -no signs/sx cholecystitis -ER if this develops, discussed urgency of eval for this with pt -sees surgeon W Preop eval -acceptable candidate for surgery. He does need to let surgeon and anesthesia know about laryngospasm prior and may need pulm clearance Class 1 obesity -has maintained wt loss off meds, cont lower nely/healthier eating and exercise. Once done with surgery and recovery, can start combo of low dose phentermine and topamax for correction mangement FH prostate CA -due for PSA so this is ordered He VU with plan and questions answered. Orders Placed This Encounter HEMOGLOBIN, GLYCOSYLATED PROSTATE SPECIFIC ANTIGEN,SCREENING cetirizine (ZYRTEC) 10 MG tablet PREZCOBIX 800-150 MG tablet TIVICAY 50 MG tablet HYDROcodone-acetaminophen (NORCO) 5-325 MG tablet There are no discontinued medications. MAHENDRA SINCLAIR MD 04/21/2024 documented in this encounter Plan of Treatment Upcoming Encounters Date Type Department Care Team (Late st Contact Info) Description 12/09/2024 9:20 AM KIER DRIER Office Visit [facility] Family Medicine - [address], [address] [place] [phone] Yolette VII, Carlos Manzano MD [address] [place] [address], [address] [address] Scheduled Orders Name Type Priority Associated Diagnoses Orde r Schedule HEMOGLOBIN, GLYCOSYLATED Lab Routine Prediabetes Expected: 04/21/2024, Expires: 04/21/2025 PROSTATE SPECIFIC ANTIGEN,SCREENING Lab Routine Screening for prostate cancer Expected: 04/21/2024, Expires: 04/21/2025 documented as of this encounter Visit Diagnoses Diagnosis Gallstones- Primary Calculus of gallbladder without mention of cholecystitis or obstruction Screening for prostate cancer Special screening for malignant neoplasm of prostate Prediabetes Other abnormal glucose Class 1 obesity due to excess calories with serious comorbidity and body mass index (BMI) of 30.0 to 30.9 in adult Preoperative clearance Preoperative examination, unspecified documented in this encounter Care Teams Electrical Laboratory Technician Relationship Specialty Start Date End Date Mahendra Sinclair MD PCP - General FAMILY PRACTICE 10/17/23 10/02/24 documented as of this encounter
--- OUTSIDE RECORDS SUMMARY | 2024-11-22 10:50 | XMS_ITS | Encounter Summary ---
Author Organization [facility] Address [address] [place] [address]. [place], [place] [address] [place] [address] Care Team Providers Care Teletype Or Varitype Keyboard Operator Name Role Phone Mahendra Sinclair MD Primary Care Provider [phone] Reason for Visit * Reason Onset Date Comments Refill Request 02/05/2024 Encounter Details Date Type Department Care Team (Late st Contact Info) Description 02/05/2024 Telephone [facility] Family Medicine - [place] [address], [address] [place] [phone] [place] [address] [place] [address] Refill Request Social History Tobacco Use Types Packs/Day Years [...] as of this encounter Progress Notes * Alejandra Justice - 02/05/2024 12:07 PM CDT Medication and strength: Phentermine HCI 30 MG cap Pharmacy: [facility] Call back #: [phone] Last office visit at this office: Last visit with MAHENDRA SINCLAIR in FAMILY PRACTICE was on: 10/17/2023 in [facility] Future appointment scheduled: Future Appointments Date Time Provider Department Center 03/14/2024 1:00 PM Mahendra Sinclair MD [id number] documented in this encounter Plan of Treatment Upcoming Encounters Date Type Department Care Team (Late st Contact Info) Description 12/09/2024 9:20 AM DIRECT SUPPORT STAFF Office Visit [facility] Family Medicine - [address], [address] [place] [phone] Yolette VII, Carlos Manzano MD [address] [place] [address], [place] [address] [place] [address] documented as of this encounter Visit Diagnoses Diagnosis Class 1 obesity due to excess calories with serious comorbidity and body mass index (BMI) of 32.0 to 32.9 in adult documented in this encounter Care Teams Teletype Or Varitype Keyboard Operator Relationship Specialty Start Date End Date Mahendra Sinclair MD PCP - General FAMILY PRACTICE 10/17/23 10/02/24 documented as of this encounter
--- OUTSIDE RECORDS SUMMARY | 2024-11-22 10:50 | XMS_ITS | Encounter Summary ---
Author Organization [facility] Address [address] [place] [address]. [place], [place] [address] [place] [address] Care Team Providers Care Rack Production Worker Name Role Phone Antoinette Riley Primary Care Provider [phone] Reason for Visit * Reason Comments Follow Up 1st weight managemen t appt. [facility] lab. Encounter Details Date Type Department Care Team (Late st Contact Info) Description 09/04/2023 1:40 PM CDT Office Visit [facility] Family Medicine - [place] [address], [address] [place] [phone] [place] [address] [place] [address] Follow Up (1st weight management appt. [facility] lab. ) Social History Tobacco Use Types Packs/Day [...] Sign Reading Time Taken Comments Blood Pressure 130/81 09/04/2023 2:02 PM CDT Pulse 83 09/04/2023 2:02 PM CDT Temperature 36.6 ??C (97.8 ??F) 09/04/2023 2:02 PM CD T Respiratory Rate 16 09/04/2023 2:02 PM CDT Oxygen Saturation 97% 09/04/2023 2:02 PM CDT Inhaled Oxygen Concentration - - Weight 108 kg (238 lb) 09/04/2023 2:02 PM CDT Height 182.9 cm (6') 09/04/2023 2:02 PM CDT Body Mass Index 32.28 09/04/2023 2:02 PM CDT documented in this encounter Patient Instructions * Patient Instructions* Mahendra Sinclair MD - 09/04/2023 1:40 PM CDT GOALS -walk 3 times per week, 30-40 mins at a time -reduce and improve snacking. [employer] snacks and healthline, Yo. Heart.org, diabetes.org, [employer] nutrition source are all good sources. Think fruits, veggies and hummus, cheese sticks, almonds, walnuts, low sugar swazi yogurt, low fat cottage cheese etc To help with snack cravings try: chewing gum, brush teeth after meals, drink a full glass of water and wait 20 mins to see if you still want that snack, google urge surfing , play a game/text/call someone/do a chore or take a walk instead, make sure you are getting enough protein with meals, have smallest amount of junk snack that will satisfy you or have it with something healthier like a piece of fruit Will eventually need to work on reducing meals out and sweetened drink intake as well Ask your primary doc if she is ok with us using phentermine-I do not see any contraindication to this and we can use this for 3 months in conjunction with lifestyle changes, then re-assess and see ifwe need to transition to a care home med. Call me after this appt and we can start the med then Consider using the NoEarly[employer] maru, or [facility] should have a free maru called real Appeal to help with makinglifestyle changes, daily support/accountability and teaching residential healthier habits. * Attachments The following attachments cannot be sent through Care Everywhere. * Weight Loss Tips (British) documented in this encounter Progress Notes * Dorie Ness MA - 09/04/2023 1:40 PM CDT 1. Are you allergic to eggs, chicken or chicken feathers? No 2. Do you currently have an illness or fever? No 3. Have you ever had an allergic reaction to the influenza vaccine? No 4. Do you have Guillain-Cahone Syndrome? No Flu vaccine administered in Left Deltoid. No flashback seen and no adverse reactions were observed while the patient was in the clinic. Pt left clinic in no acute distress. Verified by: VIKAS. * Mahendra Sinclair MD - 09/04/2023 1:40 PM CDT Images from the original note were not included. Office Progress Note Encounter Date: 09/04/2023 Reason for Visit: Follow Up (1st weight management appt. [facility] lab. ) History of Present Illness: Pt here for WM Weight history-normal weight is about 190# for him, he has gained weight over about the last 9-10mos. He is going through a divorce and thinks stress eating is playing a part. He has gone through therapy and feels he is otherwise doing well. Past Attempts-he has tried some exercise, no special diets/meds/commercial programs Goals-would like to lose 35-40#. Some more knee/legs/back ache since he has gained weight Barriers-cravings for food, typically craves salty and sweet snacks Diet-typical breakfast-manzano, eggs, toast. Lunch-burger/fries, gets take out about 4 days per week,usually fast food. Dinner-at home/home cooked, typically pasta, fried chicken, corn or green beans,sometimes a salad. Snacks-throughout the day, usually junk food. Has not tried to cut back on snacking. Drinks-sweet tea, lemonade, cranberry juice, has cut back on soda to about 4 sodas per week. Hethinks he would like to work on snacking first. Asked how he may work on this, he thinks he can tryhealthier snacks. Activity-walks occasionally ie once every two weeks. He does enjoy this, has a safe place to do this. Says he doesn't do it because he just procrastinates. He thinks he can commit to walking and has time during the workday to exercise. Sleep-uses CPAP regularly and sleeps well Behavior-no binge eating, no night eating, no h/o anorexia/bulimia Weight promoting meds-none noted, has not been on HAART for about two years Ik-zocmepyaxfg-pyz, HIV (undetectable), JUSTO meds contraindicated-no htn, no cad. No anxiety/palpitations/insomnia, normal EKG last year. No depression, no sz history, no alcohol/opioids/smoking No renal stones, no glaucoma No pancreatitis, no gallstones No FH thyroid CA or MEN meds that may help-he is interested in meds to help with wt loss. Bariatrics?-not a candidate SMART goals -walk three times per week for 30-40 mins Reduce snacking/improve snack choices ROS: Review of Systems Constitutional: Negative for [...] total) by mouth daily., Disp: , Rfl: Allergies: Review of patient's allergies indicates: No [...] Memory normal. Judgment: Judgment normal. Filed Vitals: 09/04/23 1402 BP: 130/81 Pulse: 83 Resp: 16 Temp: 97.8 ??F (36.6 ??C) SpO2: 97% Weight: 108 kg (238 lb) Height: 1.829 m (6') Body mass index is 32.28 kg/m??. Procedures: Procedures Diagnoses/Impression: 1. Class 1 obesity due to excess calories with serious comorbidity and body mass index (BMI) of 32.0 to 32.9 in adult 2. Need for immunization against influenza [[id number]] FLU VACC QUAD 6 MONTHS+ 0.5 ML (SINGLE DOSE SYRINGE FLUZONE, FLUARIX, FLULAVAL OR SINGLE DOSE VIAL FLUZONE) 3. Obstructive sleep apnea 4. Mixed hyperlipidemia Recommendations and Plan: Class 1 obesity with HLD, JUSTO, HIV+ -his weight gain is recent and related to life stressors/getting off track with exercise and healthy eating -discussed no diets, but gradual changes to healthier lifestyle for weight and overall health, and he is ready to work on this. -asked him to look into Noom as this may really help with stress/emotional eating, or see if [facility] still has their free maru real appeal . Discussed that support/accountability/info through one of these apps is usually very helpful when making changes -goal set to resume walking 3 times oer week, 30-40 mins. Eventualy workout goal will be 150-300 mins per week -we discussed he has lots of room to improve his diet but he wants to first work on snacking. We discussed ways to reduce snacking, and healthier snack options (see AVS) -handout on [employer] healthy eating plate given as well, with discussion of trying to eat healthful diet maybe 80-90% of the time with room for occasional indulgences -discussed that eventually we will need to work on reducing meals out/fast food as well as sweetened drink intake -he really has no contraindications to any of the fda approved wt loss meds. He has no hiv associated lipodystrophy. Advised him that typically [facility] does not pay for glp1 so that leaves us phentermine/qsymia/contrve/plenity -since his weight gain was recent and he was healthier weight prior/has not struggled for a long time with weight, feel it is reasonable to start with phentermine as he may not need watermaster wt management med, but could try this for 3 mos along with lifestyle changes and see where we end up. If not at goal weight then or if wt gain recurs, could then transition to another of the care home wt management meds as above -he sees his PCM next week so I asked him to double check with her that she is ok with phentermine.Again I am not seeing any contraindications and feel this is a good place to start, so he will let me know. Then we will decide when to follow up, ie probably 8-12 weeks He VU with plan and questions answered. I personally spent a total of >45 minutes on the day of the encounter. This includes dkzp-fx-psrb and toe-vktz-ha-face time I provided on the day of the encounter & excludes time spent performing separately reportable services. Orders Placed This Encounter [[id number]] FLU VACC QUAD 6 MONTHS+ 0.5 ML (SINGLE DOSE SYRINGE FLUZONE, FLUARIX, FLULAVAL OR SINGLE DOSE VIAL FLUZONE) atorvastatin (LIPITOR) 10 MG tablet There are no discontinued medications. MAHENDRA SINCLAIR MD 09/04/2023 documented in this encounter Plan of Treatment Upcoming Encounters Date Type Department Care Team (Late st Contact Info) Description 12/09/2024 9:20 AM GRADE FOREMAN Office Visit [facility] Family Medicine - [address], [address] [place] [phone] Yolette VII, Carlos Manzano MD [address] [place] [address], [address] [address] documented as of this encounter Visit Diagnoses Diagnosis Class 1 obesity due to excess calories with serious comorbidity and body mass index (BMI) of 32.0 to 32.9 in adult- Primary Need for immunization against influenza Need for prophylactic vaccination and inoculation against influenza Obstructive sleep apnea Obstructive sleep apnea (adult) (pediatric) Mixed hyperlipidemia documented in this encounter Administered Medications Administered Medications Medication Order MAR Action Action Date Dose Rate Site Protein Derivative (Purified) Given 12/12/2011 Protein Derivative (Purified) Given 12/31/2012 Protein Derivative (Purified) Given 10/26/2010 documented in this encounter Care Teams Rack Production Worker Relationship Specialty Start Date End Date Antoinette Riley PA [address] IM INFECTIOUS DISEASE, [facility] [address] [place] [address] PCP - General PHYSICIAN MOUNTER SOUSAPHONES 09/04/23 10/16/23 documented as of this encounter
--- OUTSIDE RECORDS SUMMARY | 2024-11-22 10:50 | XMS_ITS | Encounter Summary ---
Author Organization [facility] Address [address] [place] [address]. [place], [place] [phone] [place] [address] Care Team Providers Care Role Player Name Role Phone Antoinette Riley Primary Care Provider [phone] Encounter Details Date Type Department Care Team (Late st Contact Info) Description 09/14/2023 Orders Only [facility] [address], [address] [place] [address] [place] [address] [place] [address] Social History Tobacco Use Types Packs/Day Years [...] as of this encounter Progress Notes * Ashanti Woo MD - 09/14/2023 1:54 PM CDT RX for phentermine bsed on our initial visit and the ok from PMD documented in this encounter Plan of Treatment Upcoming Encounters Date Type Department Care Team (Late st Contact Info) Description 12/09/2024 9:20 AM INSIDE SALES ASSISTANT Office Visit [facility] [address], [address] [place] [address] Yolette VII, Carlos Manzano MD [address] [facility] [facility] [address] [place] [address] documented as of this encounter Visit Diagnoses Diagnosis Class 1 obesity due to excess calories with serious comorbidity and body mass index (BMI) of 32.0 to 32.9 in adult- Primary documented in this encounter Care Teams Role Player Relationship Specialty Start Date End Date Antoinette Riley PA [address] [facility] IM INFECTIOUS DISEASE, [facility] [address] [place] [address] PCP - General PHYSICIAN CAMPGROUND CLEANING ATTENDANT 09/04/23 10/16/23 documented as of this encounter
--- OUTSIDE RECORDS SUMMARY | 2024-11-22 10:50 | XMS_ITS | Encounter Summary ---
Author Organization [facility] Address [facility] [facility]. [place], [place] [address] [place] [address] Care Team Providers Care Crab Picker Name Role Phone Ashanti Woo MD Primary Care Provider [phone] Encounter Details Date Type Department Care Team (Latest Contact Info) Description 04/21/2024 Travel Social History Tobacco Use Types Packs/Day Years [...] st Contact Info) Description 12/09/2024 9:20 AM PROCUREMENT CLERK Office Visit [facility] Family Medicine - [address], [address] [place] [phone] Yolette VII, Carlos Manzano MD [address] [facility], [address] [id number] documented as of this encounter Visit Diagnoses Not on filedocumented in this encounter Care Teams Crab Picker Relationship Specialty Start Date End Date Ashanti Woo MD PCP - General FAMILY PRACTICE 10/17/23 10/02/24 documented as of this encounter
--- OUTSIDE RECORDS SUMMARY | 2024-11-22 10:50 | XMS_ITS | Encounter Summary ---
Author Organization [facility] Address [facility]. [place], [place] [address] [place] [address] Care Team Providers Care Engineering Operator Name Role Phone Ashanti Woo MD Primary Care Provider [phone] Encounter Details Date Type Department Care Team (Latest Contact Info) Description 10/17/2023 Travel Social History Tobacco Use Types Packs/Day [...] st Contact Info) Description 12/09/2024 9:20 AM ELECTRONICS REPAIR TECHNICIAN Office Visit [facility] Family Medicine - [place] [address] [facility], [address] [place] [phone] YoletteCarlos Torres MD [address] [facility], [address] [address] documented as of this encounter Visit Diagnoses Not on filedocumented in this encounter Care Teams Engineering Operator Relationship Specialty Start Date End Date Ashanti Woo MD PCP - General FAMILY PRACTICE 10/17/23 10/02/24 documented as of this encounter
--- OUTSIDE RECORDS SUMMARY | 2024-11-22 10:50 | XMS_ITS | Encounter Summary ---
Author Organization [facility] Address [address] [place] [address]. [place], [place] [address] [place] [address] Care Team Providers Care Clay Caster Name Role Phone Ashanti Woo MD Primary Care Provider [phone] Reason for Visit * Reason Onset Date Comments Medication 05/20/2024 Encounter Details Date Type Department Care Team (Late st Contact Info) Description 05/20/2024 Telephone [facility] Family Medicine - [place] [address] [facility], [address] [place] [phone] [place] [address] [place] [address] Medication Social History Tobacco Use Types Packs/Day Years [...] of this encounter Progress Notes * Dorie Ness MA - 05/22/2024 10:11 AM CDT Calling patient to advise per Dr. Woo: Plz let him know I sent the combo of low dose phentermine and topamax to approximate [facility]sym[facility] as we had discussed Please advise as below and make sure he has f/u in 8-10 weeks Tenders.es for coupon. If not covered or too expensive, let me know and we can prescribe the ingredients separately Call when due for a refill-if tolerating, we will increase it See me back 8-9 weeks Let me know side effects-usually menstrual spotting if you are also on a control pill, foggy thinking, depression, hands numb/tingly, palpitations, high pulse, anxiety, insomnia,rarely kidney stones/glaucoma so seek care for vision changes or urinary symptoms/back pain. Stay well hydrated with water. Must avoid on this medicine as it can cause severe defects. Avoid/limit alcohol use. Continue lifestyle changes as well, with regular exercise and healthy lower calorie/quality caloriediet Patient vu and advised he had on other questions at this time. * Alejandra Justice - 05/20/2024 9:21 AM CDT Dashawn called in and advised it was ok to send in his weight management scripts now. Pharmacy: [facility] in [place] on [facility]# [phone] documented in this encounter Plan of Treatment Upcoming Encounters Date Type Department Care Team (Late st Contact Info) Description 12/09/2024 9:20 AM PULPIT OPERATOR Office Visit [facility] [place] - [place], [address] [place] [phone] YoletteCarlos Torres MD [facility], [address] [address] documented as of this encounter Visit Diagnoses Diagnosis Class 1 obesity due to excess calories with serious comorbidity and body mass index (BMI) of 32.0 to 32.9 in adult documented in this encounter Care Teams Clay Caster Relationship Specialty Start Date End Date Ashanti Woo MD PCP - General FAMILY PRACTICE 10/17/23 10/02/24 documented as of this encounter
--- OUTSIDE RECORDS SUMMARY | 2024-11-22 10:50 | XMS_ITS | Encounter Summary ---
Author Organization [facility] Address [facility] [place] [address] [place] [address] Care Team Providers Care Golf Club Repairer Name Role Phone Rober Christianson MD Primary Care Provider Unavailable Encounter Details Date Type Department Care Team (Late Contact Info) Description 12/04/[address] [facility] [address] [place], [place] [phone] Yudelka Carey, INTERNET SYSTEMS ADMINISTRATOR [address] [facility] [address] [place], [place] [phone] Social History Tobacco Use Types Packs/Day Years Used Date Smoking Tobacco: Never Assessed Sex and Gender Information Value Date Recorded Sex Assigned at Not on file Legal Sex Male 6:53 PM CDT Gender Identity Not on file Sexual Orientation Not on file documented as of this encounter Plan of Treatment Upcoming Encounters Date Type Department Care Team (Late Contact Info) Description 12/09/2024 9:20 AM DESK TOP PUBLISHER Office Visit [facility] Medical [facility] Family Medicine - [place] [address] [facility], [address] [place] [phone] YoletteCarlos Torres MD [address] [facility] [address] [place], [place] [address] documented as of this encounter Visit Diagnoses Diagnosis Cough documented in this encounter Care Teams Golf Club Repairer Relationship Specialty Start Date End Date Rober Christianson MD PCP - General 12/04/15 documented as of this encounter
--- OUTSIDE RECORDS SUMMARY | 2024-11-22 10:50 | XMS_ITS | Encounter Summary ---
Author Organization [facility] Address [address] [place] [address]. [place], [place] [id number] [place] [address] Care Team Providers Care Tip Inserter Name Role Phone Antoinette Riley Primary Care Provider [phone] Reason for Visit * Reason Onset Date Comments Problem 09/14/2023 Encounter Details Date Type Department Care Team (Late st Contact Info) Description 09/14/2023 Telephone [facility] Family Medicine - [place] [address] [facility] [address], [address] [place] [phone] [place] [address] [place] [address] Problem Social History Tobacco Use Types Packs/Day Years [...] Progress Notes * Dorie Ness MA - 09/14/2023 2:54 PM CDT Calling patient to advise per Dr. Woo: I sent the phentermine 15mg. If tolerating, when due for RF have him let us know so we can increasedose. Make sure he has appt to see me back in 2-3 mos thanks Patient vu and was informed to contact us if he is not able to tolerate the medication. * Dorie Ness MA - 09/14/2023 11:50 AM CDT Patient is calling to advise he spoke to his PCP and she is ok with him starting the weight loss medication. He advised he would like it to go to the [facility] on [facility] in [place]. He asked if I could call him once the medication was sent. I advised I can do that. * Avis Cash MA - 09/14/2023 10:49 AM CDT Patient was told to call & ask for Dorie after he sees his PCP. No message. Please return pt's call. Cb documented in this encounter Plan of Treatment Upcoming Encounters Date Type Department Care Team (Late st Contact Info) Description 12/09/2024 9:20 AM OUTSIDE PARTS SALESMAN Office Visit [facility] Medical Group Family Medicine - [address], [address] [place] [phone] Yolette VII, Carlos Manzano MD [address] [place] [address], [address] [address] documented as of this encounter Visit Diagnoses Not on filedocumented in this encounter Care Teams Tip Inserter Relationship Specialty Start Date End Date Antoinette Riley PA [address] [facility], [address] [address] PCP - General PHYSICIAN PHOTOGRAPHER AERIAL 09/04/23 10/16/23 documented as of this encounter
--- OUTSIDE RECORDS SUMMARY | 2024-11-22 10:50 | XMS_ITS | Encounter Summary ---
Author Organization [facility] Address [facility]. [place], [place] [address] [place] [address] Care Team Providers Care Shot Peening Operator Name Role Phone Antoinette Riley Primary Care Provider [phone] Encounter Details Date Type Department Care Team (Latest Contact Info) Description 09/04/2023 Travel Social History Tobacco Use Types Packs/Day [...] st Contact Info) Description 12/09/2024 9:20 AM SAFETY TEACHER Office Visit [facility] Family Medicine - [place] [id number] [facility], [address] [place] [phone] Yolette Carlos LIVINGSTON MD [address] [facility], [facility] [address] [place] [address] documented as of this encounter Visit Diagnoses Not on filedocumented in this encounter Care Teams Shot Peening Operator Relationship Specialty Start Date End Date Antoinette Riley PA [address] [facility], [facility] [address] [place] [address] PCP - General PHYSICIAN BALLET DANCER 09/04/23 10/16/23 documented as of this encounter
--- OUTSIDE RECORDS SUMMARY | 2024-11-22 10:51 | XMS_ITS | Clinical Summary ---
Author Organization [facility] Address [address] [place] [address] Care Team Providers Care Die Repairer Stamping Name Role Phone Antoinette Riley Primary Care Provider [phone] Allergies No known active allergies Medications flunisolide (NASALIDE) 25 mcg (0.025 %) spray,non-aerosolI ndications:Allergy , subsequent encounter Administer 2 sprays into each nostril 2 (two) times a day 25 mL 3 1 Active Prezcobix 800-150 mg-mg tabletIndications: HIV infection, unspecified symptom status (HCC) TAKE ONE TABLET BY MOUTH EVERY DAY 90 tablet 2 4 Active Biktarvy 50-200-25 mg tabletIndications: HIV infection, unspecified symptom status (HCC) TAKE ONE TABLET BY MOUTH EVERY DAY 90 tablet 2 4 Active atorvastatin (LIPITOR) 10 mg tabletIndications: Hyperlipidemia, unspecified hyperlipidemia type TAKE ONE TABLET BY MOUTH EVERY DAY 90 tablet 2 4 Active cetirizine (ZyrTEC) 10 mg tabletIndications: HIV disease (CMS/HCC) (HCC),Allergy, subsequent encounter TAKE ONE TABLET BY MOUTH EVERY DAY 90 tablet 2 4 Active Active Problems Problem Noted Date Diagnosed Date Psychophysiological insomnia 08/09/2022 Fatigue 08/09/2022 Nonsmoker 08/09/2022 Family history of sleep apnea 08/09/2022 BMI 31.0-31.9,adult 08/09/2022 Obstructive sleep apnea 07/14/2022 Assessment & Plan (07/15/2022 6:04 PM CDT): Patient experienced apneic episode during colonoscopy. Referred to sleep medicine for sleep study. 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 Given recent discontinuation of treatment, will check genotype. 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 Assessment & Plan (10/06/2021 8:04 PM TREE SPECIALIST): Routine lab monitoring on group home HIV meds to assess for drug toxicity and efficacy. Assessment & Plan (07/15/2021 2:23 PM CDT): Routine lab monitoring on group home HIV meds to assess for drug toxicity and efficacy. Assessment & Plan (12/15/2020 10:20 AM TREE SPECIALIST): Will check VL today prior to re-initiation of cART. Will recheck VL iin 6-8 weeks on cART. Assessment & Plan (04/14/2020 11:17 AM CDT): Routine lab monitoring on group home HIV meds to assess for drug toxicity and efficacy. Assessment & Plan (10/28/2019 2:22 PM TREE SPECIALIST): Routine lab monitoring on group home HIV meds to assess for drug toxicity and efficacy. Absolute anemia 07/05/2018 HIV infection 04/16/2018 Assessment & Plan (09/28/2023 9:01 AM TREE SPECIALIST): Symtuza is now a plan exclusion. Will transition to Biktarvy + Prezcobix 100% adherence encouraged to maintain viral suppression and prevent resistance. Undetectable = untransmittable. Counseling for risk reduction, adherence and pre-conception provided. Assessment & Plan (02/04/2023 9:41 AM CDT): Continue Symtuza/Tivicay Patient would like consideration for Cabenuva- this is questionable given his past resistance history, however, will have pharmacy team evaluate. Will consider simplification if possible if patient is virally suppressed today. 100% adherence encouraged to maintain viral suppression and prevent resistance. Undetectable = untransmittable. Counseling for risk reduction, adherence and pre-conception provided. Assessment & Plan (07/15/2022 6:04 PM CDT): Continue Symtuza/Tivicay 100% adherence encouraged to maintain viral suppression and prevent resistance. Undetectable = untransmittable. Counseling for risk reduction, adherence and pre-conception provided. Assessment & Plan (10/06/2021 8:04 PM TREE SPECIALIST): Continue Symtuza and Tivicay 100% adherence encouraged to maintain viral suppression and prevent resistance. Undetectable = untransmittable. Counseling for risk reduction, adherence and pre-conception provided. Assessment & Plan (07/15/2021 2:23 PM CDT): Continue Symtuza/Tivicay 100% adherence encouraged to maintain viral suppression and prevent resistance. Undetectable = untransmittable. Counseling for risk reduction, adherence and pre-conception provided. Assessment & Plan (12/15/2020 9:54 AM TREE SPECIALIST): Stop Genvoya and Prezcobix. Start Symtuza and Tivicay - pills are somewhat smaller and Tivicay is a more potent integrase inhibitor than elvitegravir. 100% adherence encouraged to maintain viral suppression and prevent resistance. Undetectable = untransmittable. Risk reduction counseling and adherence counseling provided. RTC 6 weeks to check on adherence, tolerance, and viral load. Assessment & Plan (11/18/2020 9:10 AM TREE SPECIALIST): Continue Genvoya/Prezista with 100% adherence encouraged to maintain viral suppression and prevent resistance. Undetectable = untransmittable. Risk reduction counseling and adherence counseling provided. Assessment & Plan (04/14/2020 11:17 AM CDT): Continue Genvoya/Prezista with 100% adherence encouraged to maintain viral suppression and prevent resistance. Undetectable = untransmittable. Risk reduction counseling and adherence counseling provided. Assessment & Plan (10/28/2019 2:22 PM TREE SPECIALIST): Continue Genvoya/Prezista with 100% adherence encouraged to maintain viral suppression and prevent resistance. Undetectable = untransmittable. Risk reduction counseling and adherence counseling provided. Pillbox given. Discussed placing pillbox by toothbrush as visual cue. Discussed setting cell phone alarm as auditory cue. Encounter for long-term (cur rent) use of high-risk medication 12/31/2012 Immunizations Name Administration Dates Next Due Hep A, Adult 12/31/2012 Hep A, Unspecified 12/31/2012 Hep B Vaccine 06/02/2014 Influenza, Quadrivalent, Caterina l Culture-based MDCK, Preservative Free, Antibiotic Free, Intramuscular 10/29/2020,10/28/2019 Influenza, Trivalent, IM (MDV) 11/25/2013,2011,10/17/2011 Influenza, Trivalent, Preser vative Free, Intramuscular 08/16/2016 PPD TEST 12/31/2012,12/12/2011,10/26/2010 Pfizer SARS-CoV-2 Monovalent Vaccination (12+ Yrs) PURPLE 10/05/2021 Pneumococcal Conjugate PCV 13 06/02/2014 Pneumococcal Polysaccharide PPV23 06/28/2021, Smallpox/monkeypox Vaccine, Live, Non-replicating (Jynneos) 02/19/2023,01/10/2023 Tdap 07/05/2018 Surgical History Surgery Date Site/Laterality Comments ND SURG TX ANAL FISTULA SUBQ Anal Fistulotomy (Subcutaneous) - 1998 (Added by TW Conv) Medical History Medical History Date Comments Human immunodeficiency virus (HIV) disease (CMS/HCC) (HCC) HIV Infection - (Added by KAREN Conv) Personal history of other in fectious and parasitic diseases History of syphilis - (Added by KAREN Conv) Cellulitis of neck Cellulitis of neck - (Added by KAREN Conv) HIV (human immunodeficiency virus infection) (HCC) Family History Medical History Relation Name Comments Prostate cancer Father Prostate can cer - age 66 (Added by KAREN Conv) Relation Name Status Comments Father Social History Tobacco Use Types Packs/Day Years Used Date Smoking Tobacco: Never Smokeless Tobacco: Never Tobacco Cessation:Counseling Given: Not Answered AUDIT-C Answer Date Recorded Q1: How often do you have a drink containing alc ohol? 2-4 times a month 01/24/2022 Q2: How many drinks containi ng alcohol do you have on a typical day when you are drinking? 1 or 2 01/24/2022 Frequency of Binge Drinking Not on file 01/10 Sex and Gender Information Value Date Recorded Sex Assigned at Not on file Legal Sex Male 7:55 PM TREE SPECIALIST Gender Identity Not on file Sexual Orientation Not on file Obstetrics History Last Filed Vital Signs Vital Sign Reading Time Taken Comments Blood Pressure 127/82 09/14/2023 9:14 AM CDT Pulse 81 09/14/2023 9:14 AM CDT Temperature 37 ??C (98.6 ??F) 09/14/2023 9:14 AM CDT Respiratory Rate 18 08/09/2022 9:18 AM CDT Oxygen Saturation 99% 08/15/2023 11:24 AM CDT Inhaled Oxygen Concentration - - Weight 109.8 kg (242 lb) 09/14/2023 9:14 AM CDT Height 182 cm (5' 11.65 ) 09/14/2023 9:14 AM CDT Body Mass Index 33.14 09/14/2023 9:14 AM CDT Plan of Treatment Health Maintenance Due Date Last Done Comments Depression Screening 1970 Regular Well Visit/Exam 18-64 1988 Zoster Vaccine (1 of 2) 1989 Hepatitis A Vaccines (2 of 2 - Risk 2-dose series) 06/30/2013 12/31/2012, 12/31/2012 Hepatitis B Vaccines (2 of 3 - 19+ 3-dose series) 06/30/2014 06/02/2014 HIV+ Chlamydia and Gonorrhea Screening (Rectal) 04/16/2018 04/16/2017 HIV+ Chlamydia and Gonorrhea Screening (Throat) 04/17/2018 04/17/2017 Osteoporosis Screening-Bone Density Scan 2020 Proteinuria screening ? Urinalysis (UA) 06/28/2022 06/28/2021, 06/28/2021, 10/29/2020, Additional history exists Prostate Cancer Screening-PSA 06/28/2023 06/28/2021 Covid-19 Vaccine (4 - 2023-2 5 season) 2024 10/05/2021, 01/29/2021, 01/01/2021 Influenza Vaccine (#1) 2024 , 10/29/2020, 10/28/2019, Additional history exists HIV + Chlamydia and Gonorrhe a Screening (Urine) 09/14/2024 09/14/2023 Hemoglobin A1C 09/14/2024 09/14/2023, 06/13, 10/29/2020, Additional history exists Hepatitis C Screening 09/14/2024 09/14/2023 , 07/05/2022, 10/29/2020, Additional history exists Lipid Panel 09/14/2024 09/14/2023, 06/13, 10/29/2020, Additional history exists RPR Screening 09/14/2024 09/14/2023, 03/0 11/2022, 07/05/2022, Additional history exists T Spot (quantiferon gold) 09/14/20242022, 07/05/2022, 10/29/2020, Additional history exists DTaP/Tdap/Td Vaccine (2 - Td or Tdap) 07/05/2028 07/05/2018 Colon Cancer Screening-Colonoscopy 01/25/20322021 Pneumococcal vaccine <65 (4 of 4 - PPSV23 or PCV20) 2035 06/28/2021, 06/02/2014, 12/31/2012 HLA B 5701 Typing Completed 11/25/2013 G6PD Completed 08/16/2016 Procedures Procedure Name Priority Date/Time Associated Diagnosis Comments HEPATITIS C ANTIBODY Routine 09/14/2023 10:05 AM CDT HIV infection, unspecified symptom status (HCC) Routine screening for STI (sexually transmitted infection) HEMOGLOBIN A1C Routine 09/14/2023 10:05 AM CDT HIV infection, unspecified symptom status (HCC) LIPID PANEL Routine 09/14/2023 10:05 AM CDT HIV infection, unspecified symptom status (HCC) T-SPOT.TB Routine 09/14/2023 10:05 AM CDT HIV infection, unspecified symptom status (HCC) RPR Routine 09/14/2023 10:05 AM CDT HIV infection, unspecified symptom status (HCC) Routine screening for STI (sexually transmitted infection) COLONOSCOPY 01/24/2022 2:27 PM CDT URINALYSIS WITH REFLEX FOR NEUTROPENIC PATIENT Routine 06/28/2021 11:26 AM CDT Polyuria PSA SCREEN Routine 06/28/2021 11:26 AM CDT Polyuria BLOOD [id number] DEHYDROGENASE (G6PD) Routine 08/16/2016 5:15 AM CDT HLA B*5701 TYPING Routine 11/25/2013 4:2 3 PM TREE SPECIALIST from Last 3 Months or Most Recently Relevant to Health Maintenance Results * T-SPOT.TB Blood (09/14/2023 10:05 AM CDT) [facility] T-SPOT.TB Negative D[facility] Comment: Normal Value: Negative A negative test result does not exclude the possibility of exposure to or infection with Mycobacterium tuberculosis (M. tuberculosis). ??Patients with recent exposure to TB infected individuals exhibiting a negative T-SPOT.TB result should be considered for retesting within 6 weeks or if other relevant clinical symptoms indicate. ??Results from T-SPOT.TB testing must be used in conjunction with each individual's epidemiological history, current medical status, and results of other diagnostic evaluations. ??The T-SPOT.TB test is qualitative and results are reported as positive, borderline or negative, given that the test controls perform as expected. In line with the Centers for Disease Control and Prevention's 2010 recommendation to report quantitative measurements alongside the qualitative result, the laboratory provides spot counts for informational purposes only. ??The T-SPOT.TB test should not be interpreted as a quantitative test. T-SPOT.TB Panel A Spot Count 0 [facility] T-SPOT.TB Panel B Spot Count 0 [facility] T-SPOT.TB Negative Control Passed [facility] T-SPOT.TB Positive Control Passed [facility] Comment: Test Performed at: [employer] [facility] [place], [place] ??[address] ? CONOR WALL MD,PHD Blood 09/14/2023 10:0 5 AM CDT 09/14/2023 3:13 PM CDT Antoinette GANNON LAB MICROBIOLOGY - GENERAL ORDERABLES Final Result Performing Organization Address City/[facility]/ZIP Co de Phone Number [facility] [place] [address] * Hepatitis C antibody Blood (09/14/2023 10:05 AM CDT) Pathologist [facility] Hep C Ab Nonreactive Nonreactive [facility] Comment:Antibodies to HCV no t detected. Does NOT exclude the possibility of recent exposure to HCV. Current interpretive data was last revised on 22 Blood 09/14/2023 10:0 5 AM CDT 09/14/2023 11:33 AM CDT Antoinette GANNON LAB MICROBIOLOGY - GENERAL ORDERABLES Final Result [facility] [place] [address] * RPR Blood (09/14/2023 10:05 AM CDT) Pathologist [facility] RPR Nonreactive Nonreactive [facility] Blood 09/14/2023 10:0 5 AM CDT 09/14/2023 11:33 AM CDT Antoinette GANNON LAB MICROBIOLOGY - GENERAL ORDERABLES Final Result Performing Organization Address [facility] Co de Phone Number [facility] Department [place] [address] * (ABNORMAL) Hemoglobin A1c (09/14/2023 10:05 AM CDT) Hgb A1C 5.9(H) 4.0 - 5.6 % [facility] Estimated Average Glucose 123 mg/dL [facility] Comment: The ADA recommends reporting an estimated Average Glucose (eAG) with all Hemoglobin A1c results using the equation derived from a study of 507 normal and diabetic adults. ??Minority populations were underrepresented and children were not included. ?? (Diabetes Care 2020; 43(S1): S66-S76). ??The eAG is not equivalent to a fasting glucose. Blood 09/14/2023 10:0 5 AM CDT 09/14/2023 11:33 AM CDT Antoinette GANNON LAB BLOOD ORDERABLES Final Result Performing Organization Address [facility] Co de Phone Number [facility] Department [place] [address] * (ABNORMAL) Lipid panel (09/14/2023 10:05 AM CDT) Cholesterol 205(H) 30 - 199 mg/dL [facility] Comment: Interpretive Data Ages < or = 19 years ??Acceptable: ? <170 mg/dL ??Borderline high: ??170-199 mg/dL ??High: ? >or= 200 mg/dL Ages > or = 20 years ??Desirable: ?<200 mg/dL ??Borderline high: ??200-239 mg/dL ??High: ? >or= 240 mg/dL Literature References: 1. Expert Panel on Integrated Guidelines for Cardiovascular Health and Risk Reduction in Children and Adolescents. Pediatrics 2011;128:S213 2. NCEP Expert Panel. Circulation 2004;110:227 Current Interpretive Data was last revised on 2018. Triglycerides 122 <=149 mg/dL [facility] Comment: Interpretive Data Ages < or = 9 years ??Acceptable: ? <75 mg/dL ??Borderline high: ??75-99 mg/dL ??High: ? >or= 100 mg/dL Ages 10 to 20 years ??Acceptable: ? <90 mg/dL ??Borderline high: ??90-129 mg/dL ??High: ? >or= 130 mg/dL Ages > or = 20 years ??Desirable: ?<150 mg/dL ??Borderline high: ??150-199 mg/dL ??High: ? 200-499 mg/dL ?Very high: ?? >or= 499 mg/dL Literature References: 1. Expert Panel on Integrated Guidelines for Cardiovascular Health and Risk Reduction in Children and Adolescents. Pediatrics 2011;128:S213 2. NCEP Expert Panel. Circulation 2004;110:227 Current Interpretive Data was last revised on 2018. HDL 41 >=40 mg/dL [facility] Comment: Interpretive Data Ages < or = 19 years ??Acceptable: ? >45 mg/dL ??Borderline low: ?? 40-45 mg/dL ??Low: ? <40 mg/dL Ages > or = 20 years ??Desirable: ?>or= 60 mg/dL ??Low: ? <40 mg/dL Literature References: 1. Expert Panel on Integrated Guidelines for Cardiovascular Health and Risk Reduction in Children and Adolescents. Pediatrics 2011;128:S213 2. NCEP Expert Panel. Circulation 2004;110:227 Current Interpretive Data was last revised on 2018. LDL, calculated 140(H) <=129 mg/dL [facility] Comment: Interpretive Data Ages < or = 19 years ??Acceptable: ? <110 mg/dL ??Borderline high: ??110-129 mg/dL ??High: ?>or= 130 mg/dL Ages > or = 20 years ??Optimal: ? <100 mg/dL ??Near optimal: ?100-129 mg/dL ??Borderline high: ?? 130-159 mg/dL ??High: ?>160 mg/dL Literature References: 1. Expert Panel on Integrated Guidelines for Cardiovascular Health and Risk Reduction in Children and Adolescents. Pediatrics 2011;128:S213 2. NCEP Expert Panel. Circulation 2004;110:227 Current Interpretive Data was last revised on 2018. Non-HDL Cholesterol 164 mg/dL [facility] Comment: Interpretive Data Ages < or = 19 years ??Acceptable: ?<120 mg/dL ??Borderline high: ??120-144 mg/dL ??High: ?>145 mg/dL Ages > or = 20 years ??When triglycerides are >200 mg/dL, Non-HDL cholesterol is a secondary target of ? therapy with treatment goals that are 30 mg/dL greater than the LDL cholesterol target. ? Literature References: 1. Expert Panel on Integrated Guidelines for Cardiovascular Health and Risk Reduction in Children and Adolescents. Pediatrics 2011;128:S213 2. NCEP Expert Panel. Circulation 2004;110:227 Current Interpretive Data was last revised on 2018. Chol/HDL ratio 5 [facility] Blood 09/14/2023 10:0 5 AM CDT 09/14/2023 11:33 AM CDT Antoinette GANNON LAB BLOOD ORDERABLES Final Result [facility] Department [place] [address] * COLONOSCOPY (01/24/2022 2:27 PM CDT) Anatomical Region Laterality Modality Other Narrative Procedure Note Richard Juarez MD - 01/24/2022 2:27 PM CDT [facility] END[facility] Patient Name: Dashawn Solitario Procedure Date: 01/24/2022 2:27 PM Date of : 1970 Admit Type: Outpatient Age: 51 Gender: Male Attending MD: Richard Juarez M.D. Room: [facility] ENDOSCOPY ROOM 3 Note Status: Finalized Procedure: Colonoscopy Indications: Screening for colorectal malignant neoplasm, Thisis the patient's first colonoscopy Referring MD: Antoinetet Riley PA-C Providers: Richard Juarez M.D., Ida Caldwell M.D. Medicines: Monitored Anesthesia Care Complications: Laryngospasm, treated with intubation Estimated Blood Loss: Estimated blood loss: none. Procedure: Pre-Anesthesia Assessment: - Immediately prior to administration ofmedications, the patient was re-assessed for adequacy to receive sedatives. - The risks and benefits of the procedure and the sedation options and risks were discussed with the patient. All questions were answered and informed consent was obtained. The benefits, risks and alternatives of theprocedure and sedation were discussed and informed consentwas obtained. All questions were answered. Please referto the signed informed consent document in the medical record. The scope was passed under direct vision.The CF [id number] endoscope was introduced through the anus and advanced to the cecum, identified by appendiceal orifice and ileocecal valve. The colonoscopy was performed without difficulty. The patient tolerated the procedure well. The qualityof the bowel preparation was good. The quality of the bowel preparation was evaluated using the BBPS([place] Bowel Preparation Scale) with scores of: RightColon = 2 (minor amount of residual staining, smallfragments of stool and/or opaque liquid, but mucosa seenwell), Transverse Colon = 2 (minor amount of residual staining, small fragments of stool and/or opaque liquid, but mucosa seen well) and Left Colon = 2 (minor amount of residual staining, small fragmentsof stool and/or opaque liquid, but mucosa seen well).The total BBPS score equals 6. The quality of the bowel preparation was good. The bowel preparation usedwas polyethylene glycol (PEG) via split doseinstruction. Bowel prep was administered using a split dose. Findings: Non-bleeding internal hemorrhoids were found during retroflexion. The exam was otherwise without abnormality. Impression: - Non-bleeding internal hemorrhoids. - The examination was otherwise normal. - No specimens collected. Recommendation: - Repeat colonoscopy in 10 years for screening purposes. - Return to referring physician as previously scheduled. Attending Participation: I personally performed the entire procedure. I was present and participated during the entire procedure, including non-keyportions. Electronically signed by Richard Juarez MD Richard Juarez M.D. 01/24/2022 3:19:43 PM . Number of Addenda: 0 Note Initiated On: 01/24/2022 2:27 PM Recognized by the [place] [employer] for promoting quality in endoscopy us Richard Juarez MD ENDOSCOPY PROCEDURES Fin al Result * (ABNORMAL) Urinalysis with reflex for neutropenic patient Urine (06/28/2021 11:26 AM CDT) Color, ur Yellow Yellow [facility] Clarity, ur Clear Clear [facility] Specific gravity, ur 1.018 1.010 - 1.025 [facility] pH, urine 5 [facility] Protein, ur ql Negative Negative [facility] Glucose, ur ql Negative Negative [facility] Ketones, ur Negative Negative [facility] Bilirubin, ur Negative Negative [facility] Blood, ur 1+(A) Negative [facility] Urobilinogen, ur <2.0 <2.0 mg/dL [facility] Nitrite, ur Negative Negative [facility] Leukocyte esterase, ur Negative Negative [facility] Urine 06/28/2021 11:2 6 AM CDT 06/28/2021 3:31 PM CDT Narrative [facility] - 06/28/2021 3:43 PM CDT ?? Urine pH is affected by diet, medications, systemic acid-base disturbances, and renal tubular function. ??pH may affect urinary stone formation. ??For example, urine pH below 6.0 may help reduce the tendency for calcium phosphate stones and pH greater than 6.0 may reduce the tendency for uric acid stone formation. Source: Hanna Chelaile. Last revised 11-22-2017 Antoinette GANNON LAB MICROBIOLOGY - GENERAL ORDERABLES Final Result Performing Organization Address City/State/[facility] Co de Phone Number [facility] Department [place] [address] * PSA screen (06/28/2021 11:26 AM CDT) PSA-Total 0.80 <=3.90 ng/mL [facility] Comment: Interpretive Data ?AGE ? SEX ?REFERENCE INTERVAL 0 minutes-150 years ?Female ?None 0 minutes-49 years ? Male ?None ? 50-59 years ? Male ?0-3.90 ? 60-69 years ? Male ?0-5.40 ? 70-79 years ? Male ?0-6.20 ? 80-150 years ?Male ?0-6.20 Current interpretive data last revised 2018. Blood 06/28/2021 11:2 6 AM CDT 06/28/2021 3:31 PM CDT Antoinette GANNON LAB BLOOD ORDERABLES Final Result Performing Organization Address [facility]/ZIP Co de Phone Number [facility] [place] [address] * Blood kvlipkc-[id number]-igqqnnvgu dehydrogenase (G6PD) (08/16/2016 5:15 AM CDT) G6PD Normal [facility]R HISTOR ICAL RESULTS Blood specimen (specimen) 08/16/2016 5:15 AM CDT Narrative [facility] HISTORICAL RESULTS - 08/17/2016 5:42 AM CDT Comment Deleted Tova Zayas MD LAB BLOOD ORDERABLES Final Result Performing Organization Address [facility] Co de Phone Number [facility] HISTORICAL RESULTS * HLA B*5701 Typing (11/25/2013 4:23 PM TREE SPECIALIST) HLA B*5701 TYPING Negative QU EST HISTORICAL RESULTS Comment: The allele HLA-B*5701 is associated with Abacavir hypersensitivity reaction (HSR). A negative result for HLA-B*5701 does not rule out the possibility of Abacavir HSR. RESULTS REVIEWED BY: see note [facility]ST HISTORICAL RESULTS Comment: Paula Adams, Ph.D.,D([facility]) Director, HLA and Immunogenetics References: Casa Elder. Lancet. 2002 Jan 2; 359 (6946): 727-32 Summer Almeida al. Clin. Inf. Dis. 2006 May; 43 (1): 99-102. Typing performed by PCR and hybridization with sequence specific oligonucleotide probes (SSO). 11/25/2013 4:23 PM TREE SPECIALIST us Jodi May MD LAB BLOOD ORDERABLES Kareen ridley Result [facility]ST HISTORICAL RESULTS from Last 3 Months or Most Recently Relevant to Health Maintenance Insurance [facility] CHOICE PLUS [facility] CHOICE PLUS [facility] CHOICE PLUS Advance Directives For more information, please contact: [phone] * Full Code (Latest Code Status on File) Date Activated Date Inactivated Comments 01/24/2022 1:41 PM 01/24/2022 9:05 PM Care Teams Die Repairer Stamping Relationship Specialty Start Date End Date Antoinette Riley PA PCP - General Infectious Diseases 08/09/22
--- OUTSIDE RECORDS SUMMARY | 2024-11-22 10:51 | XMS_ITS | Encounter Summary ---
Author Organization [facility] Address [address] [place] [address] Phone Care Team Providers Care Veneer Taping Machine Operator Name Role Phone Antoinette Riley Primary Care Provider +1- [phone] Encounter Details Date Type Department Care Team (Late st Contact Info) Description 09/28/2023 Orders Only [facility] Infectious Diseases [address] [place] [address] [address] [place] [address] Antoinette iRley PA [address] [facility] [address] [place] [address] HIV infection, unspecified symptom status (HCC) (Primary Dx) Social History Tobacco Use Types Packs/Day Years Used Date Smoking Tobacco: Never Smokeless Tobacco: Never AUDIT-C Answer Date Recorded Q1: How often [...] on file Legal Sex Male 7:55 PM HEALTH PROMOTION COORDINATOR Gender Identity Not on file Sexual Orientation Not on file documented as of this encounter Ordered Prescriptions Prescription Sig Dispense Quantity Refills Last Filled Start Date End Date darunavir-cobicist at (PREZCOBIX) 800-150 mg tabletIndications: HIV infection, unspecified symptom status (HCC) Take 1 tablet by mouth daily 90 tablet 2 09/28/2023 06/04/2024 bictegravir-emtric itabine-tenofovir (Biktarvy) 50-200-25 mg tabletIndications: HIV infection Take 1 tablet by mouth daily 90 tablet 2 09/28/2023 06/04/2024 documented in this encounter Plan of Treatment Not on file documented as of this encounter Visit Diagnoses Diagnosis HIV infection, unspecified symptom status (HCC)- Primary documented in this encounter Discontinued Medications Medication Sig Discontinue Reason Start Date End Da te zbjbtzhzw-cwtm-pnnxf-ten of ala (Symtuza) [phone] mg tabletIndications:HIV disease (CMS/HCC) (HCC) Take 1 tablet by mouth daily Therapy completed 09/14/2023 09/28/2023 dolutegravir (TIVICAY) 50 mg tabletIndications:HIV disease (CMS/HCC) (HCC) Take 1 tablet (50 mg total) by mouth daily Therapy completed 09/14/2023 09/28/2023 jojpeqtvh-hjbc-mwkxx-ten of ala (Symtuza) [phone] mg tabletIndications:HIV infection Take 1 tablet by mouth daily Therapy completed 09/17/2023 09/28/2023 documented as of this encounter Care Teams Veneer Taping Machine Operator Relationship Specialty Start Date End Date Antoinette Riley PA PCP - General Infectious Diseases 08/09/22 documented as of this encounter
--- OUTSIDE RECORDS SUMMARY | 2024-11-22 10:51 | XMS_ITS | Referral Summary ---
Author Organization [facility] Address [address] [place] [address] Care Team Providers Care Assistant Technician Name Role Phone Antoinette Riley Primary Care Provider [phone]- [phone] Allergies No known active allergies Medications flunisolide [...] 07/05/2018 Assessment & Plan (09/28/2023 9:02 AM BUSINESS INTELLIGENCE ENGINEER): Routine lab monitoring on watermelon inspector HIV meds to assess for drug toxicity and efficacy. Given recent discontinuation of treatment, will check genotype. Assessment & Plan (02/04/2023 9:42 AM CDT): Routine lab monitoring on watermelon inspector HIV meds to assess for drug toxicity and efficacy. Assessment & Plan (07/15/2022 6:03 PM CDT): Routine lab monitoring on watermelon inspector HIV meds to assess for drug toxicity and efficacy. Assessment & Plan (10/06/2021 8:04 PM BUSINESS INTELLIGENCE ENGINEER): Routine lab monitoring on nursing home HIV meds to assess for drug toxicity and efficacy. Assessment & Plan (07/15/2021 2:23 PM CDT): Routine lab monitoring on nursing home HIV meds to assess for drug toxicity and efficacy. Assessment & Plan (12/15/2020 10:20 AM BUSINESS INTELLIGENCE ENGINEER): Will check VL today prior to re-initiation of cART. Will recheck VL iin 6-8 weeks on cART. Assessment & Plan (04/14/2020 11:17 AM CDT): Routine lab monitoring on nursing home HIV meds to assess for drug toxicity and efficacy. Assessment & Plan (10/28/2019 2:22 PM BUSINESS INTELLIGENCE ENGINEER): Routine lab monitoring on nursing home HIV meds to assess for drug toxicity and efficacy. Absolute anemia 07/05/2018 HIV infection 04/16/2018 Assessment & Plan (09/28/2023 9:01 AM BUSINESS INTELLIGENCE ENGINEER): Symtuza is now a plan exclusion. Will [...] provided. Assessment & Plan (10/06/2021 8:04 PM BUSINESS INTELLIGENCE ENGINEER): Continue Symtuza and Tivicay 100% adherence encouraged to maintain viral suppression and prevent resistance. Undetectable = untransmittable. Counseling for risk reduction, adherence and pre-conception provided. Assessment & Plan (07/15/2021 2:23 PM CDT): Continue Symtuza/Tivicay 100% adherence encouraged to maintain viral suppression and prevent resistance. Undetectable = untransmittable. Counseling for risk reduction, adherence and pre-conception provided. Assessment & Plan (12/15/2020 9:54 AM BUSINESS INTELLIGENCE ENGINEER): Stop Genvoya and Prezcobix. Start Symtuza and Tivicay - pills are somewhat smaller and Tivicay is a more potent integrase inhibitor than elvitegravir. 100% adherence encouraged to maintain viral suppression and prevent resistance. Undetectable = untransmittable. Risk reduction counseling and adherence counseling provided. RTC 6 weeks to check on adherence, tolerance, and viral load. Assessment & Plan (11/18/2020 9:10 AM BUSINESS INTELLIGENCE ENGINEER): Continue Genvoya/Prezista with 100% adherence encouraged to maintain viral suppression and prevent resistance. Undetectable = untransmittable. Risk reduction counseling and adherence counseling provided. Assessment & Plan (04/14/2020 11:17 AM CDT): Continue Genvoya/Prezista with 100% adherence encouraged to maintain viral suppression and prevent resistance. Undetectable = untransmittable. Risk reduction counseling and adherence counseling provided. Assessment & Plan (10/28/2019 2:22 PM BUSINESS INTELLIGENCE ENGINEER): Continue Genvoya/Prezista with 100% adherence encouraged to [...] Vaccine, Live, Non-replicating (Jynneos) 02/19/2023,01/10/2023 Tdap 07/05/2018 Social History Tobacco Use Types Packs/Day [...] on file Legal Sex Male 7:55 PM BUSINESS INTELLIGENCE ENGINEER Gender Identity Not on file Sexual Orientation [...] 09/14/2023 9:14 AM CDT Plan of Treatment Not on file Procedures Procedure Name Priority Date/Time Associated Diagnosis [...] Routine 06/28/2021 11:26 AM CDT Polyuria BLOOD LDASHBA-3-CLSSVJXMS DEHYDROGENASE (G6PD) Routine 08/16/2016 5:15 AM CDT HLA B*5701 TYPING Routine 11/25/2013 4:2 3 PM BUSINESS INTELLIGENCE ENGINEER from Last 3 Months or Most Recently Relevant to Health Maintenance Results * T-SPOT.TB Blood (09/14/2023 10:05 AM CDT) [facility] T-SPOT.TB Negative SeeBelow [facility] Comment: Normal Value: Negative A negative [...] test. T-SPOT.TB Panel A Spot Count [address] [facility] T-SPOT.TB Panel B Spot Count [address] [facility] T-SPOT.TB Negative Control Passed [facility] T-SPOT.TB Positive Control Passed [facility] Comment: Test Performed at: [facility], [employer] [place], [place] ??[address] ? CONOR WALL MD,PHD Blood 09/14/2023 10:0 5 AM CDT 09/14/2023 3:13 PM CDT Antoinette GANNON LAB MICROBIOLOGY - GENERAL ORDERABLES Final Result Performing Organization Address [facility] de Phone Number [facility] [place] [address] * Hepatitis C antibody Blood (09/14/2023 10:05 AM CDT) [facility] Hep C Ab Nonreactive Nonreactive [facility] Comment:Antibodies to HCV no t detected. Does NOT exclude the possibility of recent exposure to HCV. Current interpretive data was last revised on 22 Blood 09/14/2023 10:0 5 AM CDT 09/14/2023 11:33 AM CDT Antoinette GANNON LAB MICROBIOLOGY - GENERAL ORDERABLES Final Result Performing Organization Address [facility] de Phone Number [facility] Department [place] [address] * RPR Blood (09/14/2023 10:05 AM CDT) [facility] RPR Nonreactive Nonreactive [facility] Blood 09/14/2023 10:0 5 AM CDT 09/14/2023 11:33 AM CDT Antoinette GANNON LAB MICROBIOLOGY - GENERAL ORDERABLES Final Result Performing Organization Address [facility] de Phone Number [facility] [place] [address] * (ABNORMAL) Hemoglobin A1c (09/14/2023 10:05 AM CDT) [facility] Hgb A1C 5.9(H) 4.0 - 5.6 % [facility] Estimated Average Glucose 123 mg/dL [facility] Comment: The ADA recommends reporting an [...] Antoinette GANNON LAB BLOOD ORDERABLES Final Result [facility] Department [place] [address] * (ABNORMAL) Lipid panel (09/14/2023 10:05 AM CDT) Cholesterol 205(H) 30 - 199 mg/dL [facility] Comment: Interpretive Data Ages < or = [...] revised on 2018. Triglycerides 122 <=149 mg/dL [facility] Comment: Interpretive Data Ages < or = [...] revised on 2018. HDL 41 >=40 mg/dL [facility] Comment: Interpretive Data Ages < or [...] on 2018. LDL, calculated 140(H) <=129 mg/dL [facility] Comment: Interpretive Data Ages < or [...] revised on 2018. Non-HDL Cholesterol 164 mg/dL [facility] Comment: Interpretive Data Ages < or [...] last revised on 2018. Chol/HDL ratio [address] [facility] Blood 09/14/2023 10:0 5 AM CDT 09/14/2023 11:33 AM CDT Antoinette GANNON LAB BLOOD ORDERABLES Final Result [facility] Department [place] [address] * COLONOSCOPY (01/24/2022 2:27 PM CDT) Anatomical Region Laterality Modality Other Narrative Procedure Note Richard Juarez MD - 01/24/2022 2:27 PM CDT [facility] END[facility] Patient Name: Dashawn Solitario Procedure Date: 01/24/2022 2:27 PM Date of : 1970 Admit Type: Outpatient Age: 51 Gender: Male Attending MD: Richard Juarez M.D. Room: [facility] ENDOSCOPY ROOM 3 Note Status: Finalized Procedure: Colonoscopy Indications: Screening for colorectal malignant neoplasm, Thisis the patient's first colonoscopy Referring MD: Antoinette Riley PA-C Providers: Richard Juarez M.D., Ida [...] The scope was passed under direct vision.The [id number] endoscope was introduced through the anus and advanced to the cecum, identified by appendiceal orifice and ileocecal valve. The colonoscopy was performed without difficulty. The patient tolerated the procedure well. The qualityof the bowel preparation was good. The quality of the bowel preparation was evaluated using the BBPS(Firestone Bowel Preparation Scale) with scores of: RightColon [...] On: 01/24/2022 2:27 PM Recognized by the [place] [employer] for promoting quality in endoscopy us Richard Juarez MD ENDOSCOPY PROCEDURES Fin al Result * (ABNORMAL) Urinalysis with reflex for neutropenic patient Urine (06/28/2021 11:26 AM CDT) Color, ur Yellow Yellow [facility] Clarity, ur Clear Clear [facility] Specific gravity, ur 1.018 1.010 - 1.025 [facility] pH, urine 5 [facility] Protein, ur ql Negative Negative [facility] Glucose, ur ql Negative Negative [facility] Ketones, ur Negative Negative [facility] Bilirubin, ur Negative Negative [facility] Blood, ur 1+(A) Negative [facility] Urobilinogen, ur <2.0 <2.0 mg/dL [facility] Nitrite, ur Negative Negative [facility] Leukocyte esterase, ur Negative Negative [facility] Urine 06/28/2021 11:2 6 AM CDT 06/28/2021 3:31 PM CDT Narrative [facility] - 06/28/2021 3:43 PM CDT ?? Urine pH is affected by diet, medications, systemic acid-base disturbances, and renal tubular function. ??pH may affect urinary stone formation. ??For example, urine pH below 6.0 may help reduce the tendency for calcium phosphate stones and pH greater than 6.0 may reduce the tendency for uric acid stone formation. Source: [facility]. Last revised 11-22-2017 Antoinette GANNON LAB MICROBIOLOGY - GENERAL ORDERABLES Final Result [facility] Department [place] [address] * PSA screen (06/28/2021 11:26 AM CDT) PSA-Total 0.80 <=3.90 ng/mL [facility] Comment: Interpretive Data ?AGE ? SEX ?REFERENCE [...] Antoinette GANNON LAB BLOOD ORDERABLES Final Result [facility] Department [place] [address] * Blood jbiwdxh-8-diujhwymo dehydrogenase (G6PD) (08/16/2016 5:15 AM CDT) G6PD Normal CDR HISTOR ICAL RESULTS Blood specimen (specimen) 08/16/2016 5:15 AM CDT Narrative CDR HISTORICAL RESULTS - 08/17/2016 5:42 AM CDT Comment Deleted us Tova Zayas MD LAB BLOOD ORDERABLES Final Result Performing Organization Address [facility] Co de Phone Number CDR HISTORICAL RESULTS * HLA B*5701 Typing (11/25/2013 4:23 PM BUSINESS INTELLIGENCE ENGINEER) HLA B*5701 TYPING Negative QU EST HISTORICAL RESULTS Comment: The allele HLA-B*5701 is associated with Abacavir hypersensitivity reaction (HSR). A negative result for HLA-B*5701 does not rule out the possibility of Abacavir HSR. RESULTS REVIEWED BY: see note [facility] HISTORICAL RESULTS Comment: Paula Adams, Ph.D.,D([facility]) Director, HLA and Immunogenetics References: Casa S. et al. Lancet. 2002 Jan 2; 359 (8419): 727-32 Summer Almeida al. Clin. Inf. Dis. 2005; 43 (1): 99-102. Typing performed by PCR and hybridization with sequence specific oligonucleotide probes (SSO). 11/25/2013 4:23 PM BUSINESS INTELLIGENCE ENGINEER us Jodi May MD LAB BLOOD ORDERABLES Kareen l Result [facility] HISTORICAL RESULTS from Last 3 Months or Most Recently Relevant to Health Maintenance Insurance [facility] CHO[facility] PL[facility]/PPO Address: [address] [address] [place] [id number] [facility] CHOICE PLUS [facility] H[facility]/PPO Address: [address] [address] [place] [address] [facility] CHOICE PLUS [facility] H[facility]/PPO Address: [address] [address] [place] [address] Advance Directives For more information, please contact: [phone] * Full Code (Latest Code Status on File) Date Activated Date Inactivated Comments 01/24/2022 1:41 PM 01/24/2022 9:05 PM Care Teams Assistant Technician Relationship Specialty Start Date End Date Antoinette Riley PA PCP - General Infectious Diseases 08/09/22
--- OUTSIDE RECORDS SUMMARY | 2024-11-22 10:52 | XMS_ITS | Encounter Summary ---
Author Organization [facility] Address [address] [place] [address] Care Team Providers Care Feed Mill Operator Name Role Phone Antoinette Riley Primary Care Provider +1- [phone] Reason for Visit * Reason Onset Date Comments DME Update 12/22/2022 Encounter Details Date Type Department Care Team (Late st Contact Info) Description 12/22/[address] [facility] Pulmonary Y[place] [address] [place] [address] Criselda Colon MD [address] [facility] [address] [address] DME Update Social History Tobacco Use Types Packs/Day Years [...] on file Legal Sex Male 7:55 PM CONTINUOUS IMPROVEMENT COACH Gender Identity Not on file Sexual Orientation Not on file documented as of this encounter Miscellaneous Notes * Telephone Encounter - Jennifer Ward MA - 12/22/2022 10:27 AM CST Rec'd incoming call from Geoff with [facility] stating they have tried to reach patient several times to send out CPAP machine to him, but have not been able to get a hold of him. Therefore, they will be closing out order. Patient can reach out to them to reopen order and have CPAP machine sent to home, phone# [phone]. 12/22@10:31am> Spoke with patient he apologized and said he was recently in hospital. He will reach out to [employer] today. INUOUS IMPROVEMENT COACH documented in this encounter Plan of Treatment Not on file documented as of this encounter Visit Diagnoses Not on filedocumented in this encounter Care Teams Feed Mill Operator Relationship Specialty Start Date End Date Antoinette Riley PA PCP - General Infectious Diseases 08/09/22 documented as of this encounter
--- OUTSIDE RECORDS SUMMARY | 2024-11-22 10:52 | XMS_ITS | Encounter Summary ---
Author Organization [facility] Healthcare Address [address] [place] [address] Care Team Providers Care Registration Coordinator Name Role Phone Antoinette Riley Primary Care Provider +1- [phone] Encounter Details Date Type Department Care Team (Latest Contact Info) Description 01/10/2023 4:27 PM HEALTH SAFETY COORDINATOR - 01/10/2023 11:59 PM HEALTH SAFETY COORDINATOR Hospital Encounter [address] [address] Discharge Disposition: Discharge to home or self care Social History Tobacco Use Types Packs/Day Years [...] file Legal Sex Male 7:55 PM HEALTH SAFETY COORDINATOR Gender Identity Not on file Sexual Orientation Not on file documented as of this encounter Medications at Time of Discharge flunisolide (NASALIDE) 25 mcg (0.025 %) spray,non-aeroso lIndications:All ergy, subsequent encounter Administer 2 sprays into each nostril 2 (two) times a day 25 mL 3 10/05/2021 atorvastatin (LIPITOR) 10 mg tablet Take 1 tablet (10 mg total) by mouth daily 30 tablet 5 01/10/2023 11/03/202 3 cetirizine (ZyrTEC) 10 mg tabletIndication s:HIV disease (CMS/HCC) (HCC),Allergy, subsequent encounter Take 1 tablet (10 mg total) by mouth daily 30 tablet 5 10/04/2021 3 savgtsczl-kudd-o mtri-tenof ala (Symtuza) [phone] mg tabletIndication s:HIV disease (CMS/HCC) (HCC) Take 1 tablet by mouth daily 90 tablet 2 04/24/2022 3 dolutegravir (TIVICAY) 50 mg tabletIndication s:HIV disease (CMS/HCC) (HCC) Take 1 tablet (50 mg total) by mouth daily 90 tablet 2 04/24/2022 3 polyethylene glycol (GoLYTELY) 236-22.74-6.74 -5.86 gram solutionIndicati ons:colonoscopy Drink Golytely/Nulytel y 1/2 jug at 6:00 pm on 01/23/2022. Drink Golytely/Nulytel y 1/2 jug at 4 hours before leaving home on 01/24/2022. 4000 mL 12/07/2021 3 documented as of this encounter Discharge Disposition Disposition Code Departure Means Destination Discharge to home or self care documented in this encounter Miscellaneous Notes * Result Encounter Note - Antoinette Riley PA - 01/10/2023 11:59 PM HEALTH SAFETY COORDINATOR Ali will you please look over Mr. Solitario's genotype and see what we can do with his meds to maybe make things easier (and to make sure the meds are working for him)? Thank you! Antoinette TH SAFETY COORDINATOR documented in this encounter Plan of Treatment Not on file documented as of this encounter Procedures Procedure Name Priority Date/Time Associated Diagnosis Comments HIV-1 GENOTYPIC DRUG RESISTANCE Routine 01/10/2023 4:27 PM HEALTH SAFETY COORDINATOR documented in this encounter Results * HIV-1 Genotypic Drug Resistance (01/10/2023 4:27 PM HEALTH SAFETY COORDINATOR) HIV-1, genotypic drug resistance [facility] Comment: Interpretation of results: ?? SUSC= Susceptible PLR= Potential low-level resistance LR= Low-level resistance IR= Intermediate resistance HR= High-level resistance HIV-1 group M subtype B [facility] Nucleos(t)aram RT mutations None [facility] Reverse Transcriptase failed codons None [facility] Abacavir SUSC [facility] Didanosine SUSC [facility] Emtricitabine SUSC [facility] Lamivudine SUSC [facility] Stavudine SUSC [facility] Tenofovir SUSC [facility] Zidovudine SUSC [facility] Nonnucleoside RT mutations K103N,V106I [facility] Doravirine PLR [facility] Efavirenz HR [facility] Etravirine PLR [facility] Nevirapine HR [facility] Rilpivirine PLR [facility] Protease Mutations None [facility] Protease failed codons None [facility] Atazanavir w/ Ritonavir SUSC [facility] Darunavir w/ Ritonavir SUSC [facility] Fosamprenavir w/ Ritonavir SUSC [facility] Indinavir w/ Ritonavir SUSC [facility] Lopinavir w/ Ritonavir SUSC [facility] Nelfinavir SUSC [facility] Saquinavir w/ Ritonavir SUSC [facility] Tipranavir w/ Ritonavir SUSC [facility] Integrase Mutations None [facility] Integrase failed codons None [facility] Bictegravir SUSC [facility] Cabotegravir SUSC [facility] Dolutegravir SUSC [facility] Elvitegravir SUSC [facility] Raltegravir SUSC [facility] Prior documented HIV RNA copies/mL See Footnote [facility] Comment: RESULT: 1000 to 1,000,000 ADDITIONAL INFORMATION Testing was performed using the FDA-approved eCert HIV-1 Genotyping Assay ([employer], [facility]), with the minimum variant detection frequency set at 5%. Actual ability to detect minor variants depends on viral load in the plasma specimen. Resistance interpretation was generated with the most current version of the [facility] HIV Drug Resistance Database (https://hivdb.[place].edu/page/algorithm-updates/). Results obtained by different assay methods should not be used interchangeably. Test Performed by: [facility] [address] [place] [address] Pick Up: Bo Hair M.D. Ph.D.; CLIA# [id number] Blood 01/10/2023 4:27 PM HEALTH SAFETY COORDINATOR 01/12/2023 1:39 PM HEALTH SAFETY COORDINATOR Antoinette GANNON LAB MICROBIOLOGY - GENERAL ORDERABLES Final Result [facility] Department [place] [address] documented in this encounter Visit Diagnoses Not on filedocumented in this encounter Care Teams Registration Coordinator Relationship Specialty Start Date End Date Antoinette Riley PA PCP - General Infectious Diseases 08/09/22 documented as of this encounter
--- OUTSIDE RECORDS SUMMARY | 2024-11-22 10:52 | XMS_ITS | Encounter Summary ---
Author Organization [facility] Address [address] [facility] [address] [place] [address] Phone Care Team Providers Care Epic Manager Name Role Phone Antoinette Riley Primary Care Provider [phone] Reason for Visit * Reason Comments Injections Encounter Details Date Type Department Care Team (Latest Contact Info) Description 02/19/2023 10:00 AM CDT Clinical Support [facility] Infectious Diseases [address] [place] [address] [address] [place] [address] HIV infection, unspecified symptom status (HCC) (Primary Dx); Encounter for vaccination Social History Tobacco Use Types Packs/Day Years [...] on file Legal Sex Male 7:55 PM [employer] Gender Identity Not on file Sexual Orientation Not on file documented as of this encounter Plan of Treatment Not on file documented as of this encounter Visit Diagnoses Diagnosis HIV infection, unspecified symptom status (HCC)- Primary Encounter for vaccination documented in this encounter Orders Immunization/Injection Count Last Ordered Date First Ordered Date SMALLPOX MONKEYPOX VACCINE, LIVE - JYNNEOS 1 02/19/2023 documented in this encounter Care Teams Epic Manager Relationship Specialty Start Date End Date Antoinette Riley PA PCP - General Infectious Diseases 08/09/22 documented as of this encounter
--- OUTSIDE RECORDS SUMMARY | 2024-11-22 10:52 | XMS_ITS | Encounter Summary ---
Author Organization [facility] Address [address] [facility] [address] [place] [address] Phone Care Team Providers Care Wheel And Pinion Inspector Name Role Phone Antoinette Riley Primary Care Provider [phone]- [phone] Reason for Visit * Reason Comments Follow-up Encounter Details Date Type Department Care Team (Latest Contact Info) Description 01/10/2023 3:20 PM OBSERVATORY DIRECTOR Office Visit [facility] Infectious Diseases [address] [place] [address] [address] [place] [address] Antoinette Riley PA [address] [facility] [address] [place] [address] HIV infection, unspecified symptom status (HCC) (Primary Dx); On highly active antiretroviral therapy (HAART); Routine screening for STI (sexually transmitted infection) Social History Tobacco Use Types Packs/Day Years [...] on file Legal Sex Male 7:55 PM OBSERVATORY DIRECTOR Gender Identity Not on file Sexual Orientation Not on file documented as of this encounter Last Filed Vital Signs Vital Sign Reading Time Taken Comments Blood Pressure 119/76 01/10/2023 3:35 PM OBSERVATORY DIRECTOR Pulse 67 01/10/2023 3:35 PM OBSERVATORY DIRECTOR Temperature 36.4 ??C (97.6 ??F) 01/10/2023 3:35 PM CS T Respiratory Rate - - Oxygen Saturation - - Inhaled Oxygen Concentration - - Weight 101.6 kg (224 lb) 01/10/2023 3:35 PM OBSERVATORY DIRECTOR Height 182.9 cm (6' 0.01 ) 01/10/2023 3:35 PM CS T Body Mass Index 30.37 01/10/2023 3:35 PM OBSERVATORY DIRECTOR documented in this encounter Ordered Prescriptions Prescription Sig Dispense Quantity Refills Last Filled Start Date End Date atorvastatin (LIPITOR) 10 mg tablet Take 1 tablet (10 mg total) by mouth daily 30 tablet 5 01/10/2023 09/14/2023 documented in this encounter Progress Notes * Antoinette Riley PA - 01/10/2023 3:20 PM CST Infectious Disease Outpatient Follow Up Note Subjective Chief Complaint: Routine HIV follow up HPI: The patient is a 52 y.o. male diagnosed with HIV in 1998 by his report. cART history includes Combivir/Sustiva, Truvada/ddI/Prezista/Norvir and Atripla. Past Genotypes: November 2010- M184I/M, K103N, L100I/L, and P225H/P; April 2017- K103N, P225H. He was previously on Genvoya/Prezista but had been off medications September 2020 - December 2020. 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 He was extremely busy due to COVID. CD4 = 242 (15%) on 10/29/2020 and VL = 235,617 copies on 12/14/2020. Patent had completely stopped taking his medications because he did not want to take them intermittently and increase his risk for resistance. When he came to clinic 12/14/2020, he was started on Symtuza/Tivicay instead of resuming Genvoya/Prezista. He is feeling well and is without complaints. He has been taking it every day. Denies any side effects. Labs 07/05/2022: CD4 = 411 (21%) and VL 53 copies. He smokes an occasional Black and Mild. Drinks occasionally. Denies use of any illicit drugs. Reports sex with female partners, but states he is not sexually active at this time. He declines triple screening. Offered and accepts mpox vaccination. Objective Vitals: Most Recent : BP 119/76 (BP Location: Right arm, Patient Position: Sitting) Pulse 67 Temp 36.4 ??C (97.6 ??F)(Oral) Ht 182.9 cm (6' 0.01 ) Wt 101.6 kg (224 lb) BMI 30.37 kg/m?? Physical Exam: Physical Exam Vitals reviewed. Constitutional: General: He is not in acute distress. HENT: Head: Normocephalic and atraumatic. Eyes: General: No scleral icterus. Conjunctiva/sclera: Conjunctivae normal. Neck: Vascular: No carotid bruit. Cardiovascular: Rate and Rhythm: Normal rate and regular rhythm. Pulses: Normal pulses. Heart sounds: Normal heart sounds. Pulmonary: Effort: Pulmonary effort is normal. Breath sounds: Normal breath sounds. No wheezing or rales. Abdominal: Palpations: Abdomen is soft. Tenderness: There is no abdominal tenderness. Musculoskeletal: General: Normal range of motion. Cervical back: Normal range of motion and neck supple. No rigidity or tenderness. Lymphadenopathy: Cervical: No cervical adenopathy. Skin: General: Skin is warm and dry. Coloration: Skin is not jaundiced. Findings: No erythema or rash. Neurological: General: No focal deficit present. Mental Status: He is alert and oriented to person, place, and time. Psychiatric: Mood and Affect: Mood normal. Behavior: Behavior normal. Immunization History Administered Date(s) Administered Hep A, Adult 12/31/2012 Hep A, Unspecified 12/31/2012 Hep B Vaccine 06/02/2014 Influenza, Quadrivalent, Cell Culture-based MDCK, Preservative Free, Antibiotic Free, Jtqyjqciimzjc63/17/2019, 10/29/2020 Influenza, Trivalent, Intramuscular 10/17/2011, 08/06/2012, 11/25/2013 Influenza, Trivalent, Preservative Free, Intramuscular 08/16/2016 Moderna SARS-CoV-2 Vaccination (12+ YRS) 01/01/2021, 01/29/2021 PPD TEST 10/26/2010, 12/12/2011, 12/31/2012 Pfizer SARS-CoV-2 Vaccination (12+ yrs) PURPLE 10/05/2021 Pneumococcal Conjugate PCV 13 06/02/2014 Pneumococcal Polysaccharide PPV23 12/31/2012, 06/28/2021 Smallpox/monkeypox Vaccine, Live, Non-replicating (Jynneos) 01/10/2023 Tdap 07/05/2018 Current Outpatient Medications: atorvastatin (LIPITOR) 10 mg tablet cetirizine (ZyrTEC) 10 mg tablet wyfsejgmj-rbxe-qapmc-tenof ala (Symtuza) [phone] mg tablet dolutegravir (TIVICAY) 50 mg tablet flunisolide (NASALIDE) 25 mcg (0.025 %) spray,non-aerosol polyethylene glycol (GoLYTELY) 236-22.74-6.74 -5.86 gram solution No Known Allergies Lab/Radiology/Diagnostic Review: I reviewed the following laboratory and imaging result(s). Micro: Lab Results Component Value Date MICROBIOLOGY 06/28/2021 Final Report: Less than 100,000 colonies/mL (clinically insignificant growth based on current clinical standards) MICROBIOLOGY 07/05/2018 Final Report: Less than 100,000 colonies/mL (clinically insignificant growth based on current clinical standards) MICROBIOLOGY 11/20/2017 Final Report: Insignificant growth based on current clinical standards. MICROBIOLOGY 08/14/2017 Final Report: Negative for: Chlamydia trachomatis rRNA Negative for: Neisseria gonorrhoeae rRNA MICROBIOLOGY 04/16/2017 Final Report: Negative for: Chlamydia trachomatis rRNA Negative for: Neisseria gonorrhoeae rRNA MICROBIOLOGY 04/16/2017 Final Report: Insignificant growth based on current clinical standards. MICROBIOLOGY 04/16/2017 Final Report: Negative for: Chlamydia trachomatis rRNA Negative for: Neisseria gonorrhoeae rRNA MICROBIOLOGY 04/16/2017 Final Report: Negative for: Chlamydia trachomatis rRNA Negative for: Neisseria gonorrhoeae rRNA Urinalysis:No results for input(s): COLORU, CLARITYU, SPECGRAVU, PHURINE, PROTURQL, GLUCOSEUR, KETONESU, BILIRUBINU, BLOODUR, UROBILINOGUR, NITRITEU, LEUKESTUR, WBCUR in the last 8736 hours. Hematology/Chemistry: CBC: Lab Results Component Value Date WBC 4.3 01/10/2023 HGB 12.1 (L) 01/10/2023 HCT 37.1 (L) 01/10/2023 LABPLAT 229 01/10/2023 NEUTOPHILPCT 40.0 01/10/2023 LYMPHOPCT 46.7 01/10/2023 MONOPCT 8.8 01/10/2023 EOSPCT 3.5 01/10/2023 CMP: Lab Results Component Value Date SODIUM 140 01/10/2023 POTASSIUM 3.5 01/10/2023 CHLORIDE 102 01/10/2023 CO2 29 01/10/2023 ANIONGAP 9 01/10/2023 GLUCOSE 90 01/10/2023 BUNSER 7 (L) 01/10/2023 CREATININE 0.94 01/10/2023 BCR 7 12/24/2014 CALCIUM 9.4 01/10/2023 PROTEIN 7.7 12/04/2016 ALBUMIN 4.5 01/10/2023 ALKPHOS 83 01/10/2023 ALT 33 01/10/2023 AST 32 01/10/2023 BILITOT 0.5 01/10/2023 Creatinine:Estimated Creatinine Clearance: 100.9 mL/min (by C-G formula based on SCr of 0.94 mg/dL). Resulted in the Past 12 Months 01/10/23 1627 07/05/22 1627 CREATININE 0.94 1.18 Inflammatory Markers: No results for input(s): SEDRATE, CRP in the last 8736 hours. Screening Results RPR: Lab Results Component Value Date LABRPR Nonreactive 01/10/2023 GC: Lab Results Component Value Date CTRACHOMATIS Not Detected 01/10/2023 NGONORRHOEAE Not Detected 01/10/2023 Hepatitis Serologies: Lab Results Component Value Date HEPBSAB Positive 08/16/2016 HEPBSAB 384 08/16/2016 HEPCAB Nonreactive 07/05/2022 Virologic Testing: HIV Screen:No results found for: [id number] CD4: Lab Results Component Value Date CD4ABS 223 (L) 01/10/2023 CD4PCT 12 (L) 01/10/2023 Common Virologic Results: Lab Results Component Value Date CGM8BFY Detected (A) 01/10/2023 ZDS5RET 626,000 01/10/2023 WPD1OGF 5.80 01/10/2023 CD4ABS 223 (L) 01/10/2023 CD4PCT 12 (L) 01/10/2023 NUCLEOSRT None 01/10/2023 NONNUCRTMUT K103N,V106I 01/10/2023 PROTEASEMUT None 01/10/2023 INTEGRASEMUT None 01/10/2023 PPD Negative 07/05/2022 TOXOIGG Negative 12/05/2018 Diagnostics: EKG:No results found for: VR, AR, PRIMSEC, QRSIMSEC, QTIMSEC, QT, PA, RA, TA, DIAG Echo: Imaging: No results found. No results found. CANCER SCREENING Needs C-scope referral Assessment/Plan Diagnoses and all orders for this visit: HIV infection, unspecified symptom status (HCC) (B20) (Primary) Assessment & Plan: Continue Symtuza/Tivicay Patient would like consideration for Cabenuva- this is questionable given his past resistance history, however, will have pharmacy team evaluate. Will consider simplification if possible if patient is virally suppressed today. 100% adherence encouraged to maintain viral suppression and prevent resistance. Undetectable = untransmittable. Counseling for risk reduction, adherence and pre-conception provided. Orders: - CBC with auto differential; Future - T-helper cells (CD4) count; Future - Comprehensive metabolic panel; Future - HIV-1 RNA PCR, quantitative; Future - N. gonorrhoeae/C. trachomatis Amplification Urine; Future - RPR Blood; Future - Smallpox Monkeypox vaccine, live (Jynneos) - Differential, auto - eGFR On highly active antiretroviral therapy (HAART) (Z79.899) Assessment & Plan: Routine lab monitoring on assisted HIV meds to assess for drug toxicity and efficacy. Orders: - CBC with auto differential; Future - T-helper cells (CD4) count; Future - Comprehensive metabolic panel; Future - HIV-1 RNA PCR, quantitative; Future - Differential, auto - eGFR Routine screening for STI (sexually transmitted infection) (Z11.3) - N. gonorrhoeae/C. trachomatis Amplification Urine; Future - RPR Blood; Future Other orders - atorvastatin (LIPITOR) 10 mg tablet; Take 1 tablet (10 mg total) by mouth daily Return in about 3 months (around 04/12/2023). The supervising physician present in this office suite for this Physician Payroll Master, Antoinette Riley PA-C is Dr. Beverly Jovel. documented in this encounter Miscellaneous Notes * Assessment & Plan Note - Antoinette Riley PA - 02/04/2023 9:42 AM CDT Associated Problem(s): On highly active antiretroviral therapy (HAART) Routine lab monitoring on exterminator termite HIV meds to assess for drug toxicity and efficacy. * Assessment & Plan Note - Antoinette Riley PA - 02/04/2023 9:40 AM CDT Associated Problem(s): HIV infection (HCC) Continue Symtuza/Tivicay Patient would like consideration for Cabenuva- this is questionable given his past resistance history, however, will have pharmacy team evaluate. Will consider simplification if possible if patient is virally suppressed today. 100% adherence encouraged to maintain viral suppression and prevent resistance. Undetectable = untransmittable. Counseling for risk reduction, adherence and pre-conception provided. * Result Encounter Note - Antoinette Riley PA - 01/12/2023 10:11 AM OBSERVATORY DIRECTOR Ronak, please call the lab to add a genotype. Then call the patient to find out if he's been off his meds. I saw him yesterday and everything seemed fine. Please let him know his viral load is very high at 626,000. He should resume his meds if he's off. Have him come in for repeat VL in 4 weeks (I'm putting in the order now). Thanks! RVATORY DIRECTOR documented in this encounter Plan of Treatment Not on file documented as of this encounter Procedures Procedure Name Priority Date/Time Associated Diagnosis Comments N. GONORRHOEAE/C. TRACHOMATIS AMPLIFICATION Routine 01/10/2023 4:27 PM OBSERVATORY DIRECTOR HIV infection, unspecified symptom status (HCC) Routine screening for STI (sexually transmitted infection) EGFR Routine 01/10/2023 4:27 PM OBSERVATORY DIRECTOR HIV infection, unspecified symptom status (HCC) On highly active antiretroviral therapy (HAART) DIFFERENTIAL AUTO Routine 01/10/2023 4:2 7 PM OBSERVATORY DIRECTOR HIV infection, unspecified symptom status (HCC) On highly active antiretroviral therapy (HAART) CBC WITH AUTO DIFFERENTIAL Routine 01/10/2023 4:27 PM OBSERVATORY DIRECTOR HIV infection, unspecified symptom status (HCC) On highly active antiretroviral therapy (HAART) HIV-1 RNA, QUANTITATIVE, PCR Routine 01/10/2023 4:27 PM OBSERVATORY DIRECTOR HIV infection, unspecified symptom status (HCC) On highly active antiretroviral therapy (HAART) RPR Routine 01/10/2023 4:27 PM OBSERVATORY DIRECTOR HIV infection, unspecified symptom status (HCC) Routine screening for STI (sexually transmitted infection) T-HELPER CELLS (CD4) COUNT Routine 01/10/2023 4:27 PM OBSERVATORY DIRECTOR HIV infection, unspecified symptom status (HCC) On highly active antiretroviral therapy (HAART) COMPREHENSIVE METABOLIC PANEL Routine 01/10/2023 4:27 PM OBSERVATORY DIRECTOR HIV infection, unspecified symptom status (HCC) On highly active antiretroviral therapy (HAART) documented in this encounter Results * eGFR (01/10/2023 4:27 PM OBSERVATORY DIRECTOR) [facility] eGFR >90 90 - 130 mL/min/1. 73 m2 [facility] Comment: Interpretive Data Reference Interval Normal ?>/= 90 mL/min/1.73m2 Mildly decreased* ? 60 - 89 mL/min/1.73m2 Mildly to moderately decreased ?45 - 59 mL/min/1.73m2 Moderately to severely decreased ??30 - 44 mL/min/1.73m2 Severely decreased ?15 - 29 mL/min/1.73m2 Kidney Failure ?< 15 ??mL/min/1.73m2 *Relative to young adult level Estimated glomerular filtration rate is determined by the 2020 CKD-EPI equation recommended by the National Kidney Foundation (A Unifying Approach to GFR Estimation: Recommendations of the NKF-ASK Task Force on Reassessing the Inclusion of Race in Diagnosing Kidney Disease, JASN 202). The CKD-EPI equation should not be used for patients with unstable renal function and has not been validated in children and those over 70. Current interpretive data was last reviewed 2021. Blood 01/10/2023 4:27 PM OBSERVATORY DIRECTOR 01/10/2023 6:11 PM OBSERVATORY DIRECTOR Antoinette GANNON LAB BLOOD ORDERABLES Final Result Performing Organization Address City/State/[facility] Co de Phone Number [facility] Department [place] [address] * Differential, auto (01/10/2023 4:27 PM OBSERVATORY DIRECTOR) Neutrophil abs 1.7 1.7 - 6.5 K/cumm [facility] Imm gran abs 0.0 0.0 - 0.1 K/cumm [facility] Lymphocyte abs 2.0 0.8 - 3.3 K/cumm [facility] Monocyte abs 0.4 0.2 - 0.8 K/cumm [facility] Eosinophil abs 0.2 0.0 - 0.5 K/cumm [facility] Basophil abs 0.0 0.0 - 0.1 K/cumm [facility] Neutrophil pct 40.0 % [facility] Comment: Interpretive Data Percent cell count reference ranges are not reported, since discordance with absolute values may lead to misinterpretation of CBC data. Current Interpretive Data was last revised on 2018. Imm gran pct 0.5 % [facility] Comment: Interpretive Data Percent cell count reference ranges are not reported, since discordance with absolute values may lead to misinterpretation of CBC data. Current Interpretive Data was last revised on 2018. Lymphocyte pct 46.7 % [facility] Comment: Interpretive Data Percent cell count reference ranges are not reported, since discordance with absolute values may lead to misinterpretation of CBC data. Current Interpretive Data was last revised on 2018. Monocyte pct 8.8 % [facility] Comment: Interpretive Data Percent cell count reference ranges are not reported, since discordance with absolute values may lead to misinterpretation of CBC data. Current Interpretive Data was last revised on 2018. Eosinophil pct 3.5 % [facility] Comment: Interpretive Data Percent cell count reference ranges are not reported, since discordance with absolute values may lead to misinterpretation of CBC data. Current Interpretive Data was last revised on 2018. Basophil pct 0.5 % [facility] Comment: Interpretive Data Percent cell count reference ranges are not reported, since discordance with absolute values may lead to misinterpretation of CBC data. Current Interpretive Data was last revised on 2018. Blood 01/10/2023 4:27 PM OBSERVATORY DIRECTOR 01/10/2023 5:39 PM OBSERVATORY DIRECTOR Antoinette GANNON LAB BLOOD ORDERABLES Final Result Performing Organization Address City/[facility]/ZIP Co de Phone Number [facility] Department [place] [address] * RPR Blood (01/10/2023 4:27 PM OBSERVATORY DIRECTOR) Pathologist [facility] RPR Nonreactive Nonreactive [facility] Blood 01/10/2023 4:27 PM OBSERVATORY DIRECTOR 01/10/2023 5:39 PM OBSERVATORY DIRECTOR Antoinette GANNON LAB MICROBIOLOGY - GENERAL ORDERABLES Final Result Performing Organization Address City/[facility]/ZIP Co de Phone Number [facility] [place] [address] * N. gonorrhoeae/C. trachomatis Amplification Urine (01/10/2023 4:27 PM OBSERVATORY DIRECTOR) C. trachomatis Not Detected Not Detected [facility] N. gonorrhoeae Not Detected Not Detected [facility] Comment: Interpretive Data Testing performed by the [facility]. This assay detects Chlamydia trachomatis and Neisseria gonorrhoeae by nucleic acid amplification testing (NAAT). This test is approved by the [place] Food and Drug Administration and the performance characteristics have been verified by the laboratory. The performance characteristics of this test have not been evaluated in individuals less than 14 years of age. Current Interpretive Data was last revised on 2018. Urine (None) 01/10/2023 4:27 PM OBSERVATORY DIRECTOR 01/10/2023 5:45 PM OBSERVATORY DIRECTOR Antoinette GANNON LAB MICROBIOLOGY - GENERAL ORDERABLES Final Result Performing Organization Address [facility] Co de Phone Number [facility] [place] [address] * (ABNORMAL) HIV-1 RNA PCR, quantitative (01/10/2023 4:27 PM OBSERVATORY DIRECTOR) [facility] HIV-1 RNA Detected( A) [facility] Comment: The quantifiable range of this assay is 20 copies/mL to 10,000,000 copies/mL (1.30 log copies/mL to 7.00 log copies/mL). ??Testing was performed by the NIELS 6800 HIV-1 Test([employer] Testing performed at [facility] Current Interpretive Data was last revised on 2021. HIV-1 RNA, copies/mL 626,000 copies/mL [facility] HIV-1 RNA, log 5.80 log cps/mL [facility] Blood 01/10/2023 4:27 PM OBSERVATORY DIRECTOR 01/10/2023 5:45 PM OBSERVATORY DIRECTOR Antoinette GANNON LAB MICROBIOLOGY - GENERAL ORDERABLES Final Result Performing Organization Address City/[facility]/ZIP Co de Phone Number [facility] [place] [address] * (ABNORMAL) Comprehensive metabolic panel (01/10/2023 4:27 PM OBSERVATORY DIRECTOR) Sodium 140 135 - 145 mmol/L [facility] Potassium, pl 3.5 3.3 - 4.9 mmol/L [facility] Chloride 102 97 - 110 mmol/L [facility] CO2 29 22 - 32 mmol/L [facility] Anion gap 9 2 - 15 mmol/L [facility] BUN 7(L) 8 - 25 mg/dL [facility] Creatinine 0.94 0.80 - 1.30 mg/dL [facility] Glucose 90 70 - 199 mg/dL [facility] Comment: Interpretive Data Fasting glucose >/= 126 mg/dl is diagnostic for diabetes. ?? Fasting is defined as no caloric intake for at least 8 hours. Fasting glucose between 100 mg/dl to 125 mg/dl is diagnostic of prediabetes. In a patient with classic symptoms of hyperglycemia or hyperglycemic crisis, a random glucose >/= 200 mg/dl is diagnostic for diabetes. In the absence of unequivocal hyperglycemia, results should be confirmed by repeat testing. The classification and Diagnosis of Diabetes Diabetes Care 202; 46: S19-S40. Current interpretive data was last revised 2022. Calcium 9.4 8.5 - 10.3 mg/dL [facility] Bilirubin, total 0.5 0.1 - 1.2 mg/dL [facility] Protein, pl 8.3 6.5 - 8.5 g/dL [facility] Albumin 4.5 3.5 - 5.0 g/dL [facility] Alk phos 83 40 - 130 Units/L [facility] ALT 33 7 - 55 Units/L [facility] AST 32 10 - 50 Units/L [facility] Blood 01/10/2023 4:27 PM OBSERVATORY DIRECTOR 01/10/2023 5:39 PM OBSERVATORY DIRECTOR Antoinette GANNON LAB BLOOD ORDERABLES Final Result [facility] [place] [address] * (ABNORMAL) T-helper cells (CD4) count (01/10/2023 4:27 PM OBSERVATORY DIRECTOR) [facility] CD4 pct 12(L) 31 - 64 % [facility] CD4 Absolute 223(L) 365 - 1,294 cells/mcL [facility] Blood 01/10/2023 4:27 PM OBSERVATORY DIRECTOR 01/10/2023 5:39 PM OBSERVATORY DIRECTOR Antoinette GANNON LAB BLOOD ORDERABLES Final Result Performing Organization Address City/[facility]/ZIP Co de Phone Number [facility] Department [place] [address] * (ABNORMAL) CBC with auto differential (01/10/2023 4:27 PM OBSERVATORY DIRECTOR) [facility] WBC 4.3 3.8 - 9.9 K/cumm [facility] Hgb 12.1(L) 13.0 - 17.5 g/dL [facility] Hct 37.1(L) 38.9 - 50.3 % [facility] Plt 229 150 - 400 K/cumm [facility] MPV 10.4 9.1 - 12.3 fL [facility] RBC 4.59 4.30 - 5.80 M/cumm [facility] MCV 80.8(L) 81.3 - 96.4 fL [facility] MCH 26.4(L) 27.1 - 33.3 pg [facility] MCHC 32.6 32.3 - 35.7 g/dL [facility] RDW CV 13.9 11.1 - 14.9 % [facility] RDW SD 40.4 35.7 - 48.1 fL [facility] NRBC abs 0.00 0.00 - 0.01 K/cumm [facility] Blood 01/10/2023 4:27 PM OBSERVATORY DIRECTOR 01/10/2023 5:39 PM OBSERVATORY DIRECTOR Antoinette GANNON LAB BLOOD ORDERABLES Final Result Performing Organization Address City/[facility]/ZIP Co de Phone Number [facility] [place] [address] documented in this encounter Visit Diagnoses Diagnosis HIV infection, unspecified symptom status (HCC)- Primary On highly active antiretroviral therapy (HAART) Routine screening for STI (sexually transmitted infection) Screening examination for venereal disease documented in this encounter Orders Immunization/Injection Count Last Ordered Date First Ordered Date SMALLPOX MONKEYPOX VACCINE, LIVE - JYNNEOS 1 01/10/2023 documented in this encounter Care Teams Wheel And Pinion Inspector Relationship Specialty Start Date End Date Antoinette Riley PA PCP - General Infectious Diseases 08/09/22 documented as of this encounter
--- OUTSIDE RECORDS SUMMARY | 2024-11-22 10:52 | XMS_ITS | Encounter Summary ---
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 Name Role Phone Antoinette Riley Primary Care Provider [phone] Reason for Referral * Sleep Medicine (Routine) - Closed Specialty Diagnoses / Procedures Referred By Markell tong Referred To Contact Diagnoses Other sleep apnea Psychophysiological insomnia Fatigue, unspecified type Nonsmoker Family history of sleep apnea BMI 30.0-30.9,adult Procedures Portable/Home Sleep Study Criselda Colon MD Phone: tel: fax: [facility] [address] [place] [address] Phone: tel: fax: Referral ID Status Reason Start Date Expiration Date Visits Re quested Visits Authorized [id number] Closed 08/09/2022 09/08/2023 1 1 Reason for Visit * Sleep Medicine (Routine) - Closed Specialty Diagnoses / Procedures Referred By Contrenaldo tong Referred To Contact Diagnoses Other sleep apnea Psychophysiological insomnia Fatigue, unspecified type Nonsmoker Family history of sleep apnea BMI 30.0-30.9,adult Procedures Portable/Home Sleep Study Criselda Colon MD Phone: tel: fax: [facility] [address] [place] [address] Phone: tel: fax: Referral ID Status Reason Start Date Expiration Date Visits Re quested Visits Authorized [id number] Closed 08/09/2022 09/08/2023 1 1 Encounter Details Date Type Department Care Team (Latest Contact Info) Description 09/04/2022 2:55 PM CDT - 09/04/2022 11:59 PM CDT Hospital Encounter [facility] [address] [place] [id number] Other sleep apnea; Psychophysiological insomnia; Fatigue, unspecified type; Nonsmoker; Family history of sleep apnea; BMI 30.0-30.9,adult Discharge Disposition: Discharge to home or self [...] on file 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 Gender Identity Not on file Sexual Orientation Not on file documented as of this encounter Medications at Time of Discharge flunisolide (NASALIDE) 25 mcg (0.025 %) spray,non-aeroso lIndications:All ergy, subsequent encounter Administer 2 sprays into each nostril 2 (two) times a day 25 mL 3 10/05/2021 cetirizine (ZyrTEC) 10 mg tabletIndication s:HIV disease (CMS/HCC) ([facility]),Allergy, subsequent encounter Take 1 tablet (10 mg total) by mouth daily 30 tablet 5 10/04/2021 3 poindwcsc-wlug-q mtri-tenof ala (Symtuza) [phone] mg tabletIndication s:HIV disease (CMS/HCC) ([facility]) Take 1 tablet by mouth daily 90 [...] documented in this encounter Miscellaneous Notes * Addendum Note - Criselda Colon MD - 09/04/2022 3:00 PM CDTEncounter addended by: Criselda Colon MD on: 09/05/2022 5:59 PM Actions taken: Charge Capture section accepted documented in this encounter Plan of Treatment Not on file documented as of this encounter Procedures Procedure Name Priority Date/Time Associated Diagnosis Comments PORTABLE/HOME SLEEP STUDY Routine 09/04/2022 2:55 PM CDT Other sleep apnea Psychophysiological insomnia Fatigue, unspecified type Nonsmoker Family history of sleep apnea BMI 30.0-30.9,adult documented in this encounter Results * Portable/Home Sleep Study (09/04/2022 2:55 PM CDT) us Criselda Colon MD SLEEP CENTER ORDERABLES Fin al Result [facility] [address] [place], [place] [id number] documented in this encounter Visit Diagnoses Diagnosis Other sleep apnea Psychophysiological insomnia Persistent disorder of initiating or maintaining sleep Fatigue, unspecified type Nonsmoker Other specified conditions influencing health status Family history of sleep apnea Family history of other condition BMI 30.0-30.9,adult documented in this encounter Care Teams Expeditionary Fighting Vehicle Crewman Relationship Specialty Start Date End Date Antoinette Riely PA PCP - General Infectious Diseases 08/09/22 documented as of this encounter
--- OUTSIDE RECORDS SUMMARY | 2024-11-22 10:52 | XMS_ITS | Encounter Summary ---
Author Organization [facility] Address [address] [place] [address] Phone Care Team Providers Care Teacher Education Instructor Name Role Phone Gucci Vilchis MD Primary Care Provider [phone] Encounter Details Date Type Department Care Team (Late st Contact Info) Description 04/24/2022 Orders Only [facility] Infectious Diseases [address] [place] [address] [address] [place] [address] Antoinette Riley PA [address] [facility] [address] [place] [address] HIV disease (CMS/HCC) (HCC) Social History Tobacco Use Types Packs/Day Years [...] on file 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 Gender Identity Not on file Sexual Orientation Not on file documented as of this encounter Ordered Prescriptions Prescription Sig Dispense Quantity Refills Last Filled Start Date End Date dolutegravir (TIVICAY) 50 mg tabletIndications: HIV disease (CMS/HCC) (HCC) Take 1 tablet (50 mg total) by mouth daily 90 tablet 2 04/24/2022 02/05/2023 mzlwvhgyl-hvjz-rsq ri-tenof ala (Symtuza) [phone] mg tabletIndications: HIV disease (CMS/HCC) (HCC) Take 1 tablet by mouth daily 90 tablet 2 04/24/2022 02/05/2023 documented in this encounter Plan of Treatment Not on file documented as of this encounter Visit Diagnoses Diagnosis HIV disease (CMS/HCC) (HCC) Human immunodeficiency virus [HIV] disease documented in this encounter Discontinued Medications Medication Sig Discontinue Reason Start Date End Da te ytwcttigh-kaqm-npmxi-ten of ala (Symtuza) [phone] mg tabletIndications:HIV disease (CMS/HCC) (HCC) Take 1 tablet by mouth daily Reorder 02/01/2022 04/24/2022 dolutegravir (TIVICAY) 50 mg tabletIndications:HIV disease (CMS/HCC) (HCC) Take 1 tablet (50 mg total) by mouth daily Reorder 02/01/2022 04/24/2022 documented as of this encounter Care Teams Teacher Education Instructor Relationship Specialty Start Date End Date Gucci Vilchis MD PCP - General 04/16/17 08/08/22 documented as of this encounter
--- OUTSIDE RECORDS SUMMARY | 2024-11-22 10:52 | XMS_ITS | Encounter Summary ---
Author Organization [facility] Address [address] [facility] [address] [place] [address] Phone Care Team Providers Care Data Abstractor Name Role Phone Antoinette Riley Primary Care Provider [phone] Reason for Visit * Reason Comments Follow-up Encounter Details Date Type Department Care Team (Latest Contact Info) Description 09/14/2023 9:20 AM CDT Office Visit [facility] Infectious Diseases [address] [place] [address] [address] [place] [address] Antoinette Riley PA [address] [address] HIV infection, unspecified symptom status (HCC) (Primary Dx); On highly active antiretroviral therapy (HAART); Routine screening for STI (sexually transmitted infection); HIV disease (CMS/HCC) (HCC); Allergy, subsequent encounter; Hyperlipidemia, unspecified hyperlipidemia type Social History Tobacco Use Types Packs/Day Years [...] on file Legal 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 Gender Identity Not on file Sexual Orientation Not on file documented as of this encounter Last Filed Vital Signs Vital Sign Reading Time Taken Comments Blood Pressure 127/82 09/14/2023 9:14 AM CDT Pulse 81 09/14/2023 9:14 AM CDT Temperature 37 ??C (98.6 ??F) 09/14/2023 9:14 AM CDT Respiratory Rate - - Oxygen Saturation - - Inhaled Oxygen Concentration - - Weight 109.8 kg (242 lb) 09/14/2023 9:14 AM CDT Height 182 cm (5' 11.65 ) 09/14/2023 9:14 AM CDT Body Mass Index 33.14 09/14/2023 9:14 AM CDT documented in this encounter Patient Instructions * Patient Instructions* Antoinette Riley PA - 09/14/2023 9:20 AM CDT [facility] - [address] [phone] documented in this encounter Ordered Prescriptions Prescription Sig Dispense Quantity Refills Last Filled Start Date End Date COVID-19 (Comirnaty ceasar Vaccine,PF,) 30 mcg/0.3 mL suspension Inject 0.3 mL into the muscle as instructed once for 1 dose 0.3 mL 09/14/2023 3 atorvastatin (LIPITOR) 10 mg tabletIndications:H yperlipidemia, unspecified hyperlipidemia type Take 1 tablet (10 mg total) by mouth daily 90 tablet 2 09/14/2023 3 cetirizine (ZyrTEC) 10 mg tabletIndications:H IV disease (CMS/HCC) (HCC),Allergy, subsequent encounter Take 1 tablet (10 mg total) by mouth daily 90 tablet 2 09/14/2023 3 touoqwysq-xydu-ysul i-tenof ala (Symtuza) [phone] mg tabletIndications:H IV disease (CMS/HCC) (HCC) Take 1 tablet by mouth daily 90 tablet 2 09/14/2023 3 dolutegravir (TIVICAY) 50 mg tabletIndications:H IV disease (CMS/HCC) (HCC) Take 1 tablet (50 mg total) by mouth daily 90 tablet 2 09/14/2023 3 atorvastatin (LIPITOR) 10 mg tabletIndications:H yperlipidemia, unspecified hyperlipidemia type Take 1 tablet (10 mg total) by mouth daily 30 tablet 09/14/2023 3 cetirizine (ZyrTEC) 10 mg tabletIndications:H IV disease (CMS/HCC) (HCC),Allergy, subsequent encounter Take 1 tablet (10 mg total) by mouth daily 30 tablet 09/14/2023 3 dolutegravir (TIVICAY) 50 mg tabletIndications:H IV disease (CMS/HCC) (HCC) Take 1 tablet (50 mg total) by mouth daily 90 tablet 09/14/2023 3 bgyiwiqwe-rcjd-yimh i-tenof ala (Symtuza) [phone] mg tabletIndications:H IV disease (CMS/HCC) (HCC) Take 1 tablet by mouth daily 90 tablet 09/14/2023 3 documented in this encounter Progress Notes * Antoinette Riley PA - 09/14/2023 9:20 AM CDT Infectious Disease Outpatient Follow Up Note Subjective Chief Complaint: Routine HIV follow up HPI: The patient is a 52 y.o. male HPI Patient reports to be off meds for the past two months. He is in the process of getting - he is grieving the loss of his marriage. As a result, he stopped taking his all his medications. He is just now getting his life back together. He is not having any symptoms. He has gained some weight. Objective Vitals: Most Recent : BP 127/82 (BP Location: Right arm, Patient Position: Sitting) Pulse 81 Temp 37 ??C (98.6 ??F) (Oral) Ht 182 cm (5' 11.65 ) Wt 109.8 kg (242 lb) BMI 33.14 kg/m?? Physical Exam: Physical Exam Vitals reviewed. [...] Normal breath sounds. No wheezing or rales. Musculoskeletal: General: Normal range of motion. Cervical [...] Cell Culture-based MDCK, Preservative Free, Antibiotic Free, Kvronfdzdvlof67/17/2019, 10/29/2020 Influenza, Trivalent, Intramuscular 10/17/2011, 08/06/2012, 11/25/2013 Influenza, Trivalent, Preservative Free, Intramuscular 08/16/2016 Moderna SARS-CoV-2 Monovalent Vaccination (12+ YRS) 01/01/2021, 01/29/2021 PPD TEST 10/26/2010, 12/12/2011, 12/31/2012 Pfizer SARS-CoV-2 Monovalent Vaccination (12+ Yrs) PURPLE 10/05/2021 Pneumococcal Conjugate PCV 13 06/02/2014 Pneumococcal Polysaccharide PPV23 12/31/2012, 06/28/2021 Smallpox/monkeypox Vaccine, Live, Non-replicating (Jynneos) 01/10/2023, 02/19/2023 Tdap 07/05/2018 Current Outpatient Medications: atorvastatin (LIPITOR) 10 mg tablet cetirizine (ZyrTEC) 10 mg tablet jdoxfwqkm-edjb-ungsy-tenof ala (Symtuza) [phone] mg tablet mdnhocqjn-sguj-blnba-tenof ala (Symtuza) [phone] mg tablet dolutegravir (TIVICAY) 50 mg tablet flunisolide (NASALIDE) 25 mcg (0.025 %) spray,non-aerosol No Known Allergies Lab/Radiology/Diagnostic Review: I reviewed [...] Neisseria gonorrhoeae rRNA Urinalysis:No results for input(s): COLORU , CLARITYU , SPECGRAVU , PHURINE , PROTURQL , GLUCOSEUR , KETONESU , BILIRUBINU , BLOODUR , UROBILINOGUR , NITRITEU , LEUKESTUR , WBCUR in thelast 8736 hours. Hematology/Chemistry: CBC: Lab Results Component Value Date WBC 3.1 (L) 09/14/2023 HGB 11.4 (L) 09/14/2023 HCT 35.0 (L) 09/14/2023 LABPLAT 176 09/14/2023 NEUTOPHILPCT 48.3 09/14/2023 LYMPHOPCT 32.3 09/14/2023 MONOPCT 13.9 09/14/2023 EOSPCT 3.2 09/14/2023 CMP: Lab Results Component Value Date SODIUM 145 09/14/2023 POTASSIUM 3.5 09/14/2023 CHLORIDE 108 09/14/2023 CO2 28 09/14/2023 ANIONGAP 9 09/14/2023 GLUCOSE 108 09/14/2023 BUNSER 9 09/14/2023 CREATININE 0.96 09/14/2023 BCR 7 12/24/2014 CALCIUM 9.4 09/14/2023 PROTEIN 7.7 12/04/2016 ALBUMIN 4.3 09/14/2023 ALKPHOS 71 09/14/2023 ALT 37 09/14/2023 AST 27 09/14/2023 BILITOT 0.4 09/14/2023 Creatinine:Estimated Creatinine Clearance: 97.8 mL/min (by Cockcroft-Gault based on SCr of 0.96 mg/dL). Resulted in the Past 12 Months 09/14/23 1005 01/10/23 1627 CREATININE 0.96 0.94 Inflammatory Markers: No results for input(s): SEDRATE , CRP in the last 8736 hours. Screening Results RPR: Lab Results Component Value Date LABRPR Nonreactive 09/14/2023 GC: Lab Results Component Value Date CTRACHOMATIS Not Detected 09/14/2023 NGONORRHOEAE Not Detected 09/14/2023 Hepatitis Serologies: Lab Results Component Value Date HEPBSAB Positive 08/16/2016 HEPBSAB 384 08/16/2016 HEPCAB Nonreactive 09/14/2023 Virologic Testing: HIV Screen:No results found for: [id number] CD4: Lab Results Component Value Date CD4ABS <35 (L) 09/14/2023 CD4PCT 2 (L) 09/14/2023 Common Virologic Results: Lab Results Component Value Date VSQ3SVK Detected (A) 09/14/2023 FSX6MWO 421,000 09/14/2023 DHQ7RMH 5.62 09/14/2023 CD4ABS <35 (L) 09/14/2023 CD4PCT 2 (L) 09/14/2023 NUCLEOSRT None 09/14/2023 NONNUCRTMUT V106I 09/14/2023 PROTEASEMUT None 09/14/2023 INTEGRASEMUT None 09/14/2023 PPD Negative 09/14/2023 TOXOIGG Negative 12/05/2018 Diagnostics: EKG:No results found for: VR , AR , PRIMSEC , QRSIMSEC , QTIMSEC , QT , PA , RA , TA , DIAG Echo: Imaging: No results found. No results found. Assessment/Plan Diagnoses and all orders for this visit: HIV infection, unspecified symptom status (HCC) (B20) (Primary) Assessment & Plan: Symtuza is now a plan exclusion. Will transition to Biktarvy + Prezcobix 100% adherence encouraged to maintain viral suppression and prevent resistance. Undetectable = untransmittable. Counseling for risk reduction, adherence and pre-conception provided. Orders: - CBC with auto differential; Future - T-helper cells (CD4) count; Future - Comprehensive metabolic panel; Future - HIV-1 RNA PCR, quantitative Blood; Future - N. gonorrhoeae/C. trachomatis Amplification Urine; Future - RPR Blood; Future - HIV-1 Genotypic Drug Resistance; Future - T-SPOT.TB Blood; Future - Lipid panel; Future - Hepatitis C antibody Blood; Future - Hemoglobin A1c; Future - N. gonorrhoeae/C. trachomatis Amplification Throat; Future - N. gonorrhoeae/C. trachomatis Amplification Rectal swab; Future - Differential, auto - eGFR On highly active antiretroviral therapy (HAART) (Z79.899) Assessment & Plan: Routine lab monitoring on assisted HIV meds to assess for drug toxicity and efficacy. Given recent discontinuation of treatment, will check genotype. Orders: - CBC with auto differential; Future - T-helper cells (CD4) count; Future - Comprehensive metabolic panel; Future - HIV-1 RNA PCR, quantitative Blood; Future - HIV-1 Genotypic Drug Resistance; Future - Differential, auto - eGFR Routine screening for STI (sexually transmitted infection) (Z11.3) - N. gonorrhoeae/C. trachomatis Amplification Urine; Future - RPR Blood; Future - Hepatitis C antibody Blood; Future - N. gonorrhoeae/C. trachomatis Amplification Throat; Future - N. gonorrhoeae/C. trachomatis Amplification Rectal swab; Future HIV disease (CMS/HCC) (HCC) (B20) - dolutegravir (TIVICAY) 50 mg tablet; Take 1 tablet (50 mg total) by mouth daily - ohxaejebo-vtye-vmtvb-tenof ala (Symtuza) [phone] mg tablet; Take 1 tablet by mouth daily - cetirizine (ZyrTEC) 10 mg tablet; Take 1 tablet (10 mg total) by mouth daily Allergy, subsequent encounter (T78.40XD) - cetirizine (ZyrTEC) 10 mg tablet; Take 1 tablet (10 mg total) by mouth daily Hyperlipidemia, unspecified hyperlipidemia type (E78.5) - atorvastatin (LIPITOR) 10 mg tablet; Take 1 tablet (10 mg total) by mouth daily Other orders - COVID-19 (Comirnaty ceasar Vaccine,PF,) 30 mcg/0.3 mL suspension; Inject 0.3 mL into the muscle as instructed once for 1 dose Return in about 3 months (around 12/15/2023). The supervising physician present in this office suite for this Physician Site Damage Prevention Technician, Antoinette Riley PA-C is Dr. SANTOS May. 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 Given recent discontinuation of treatment, will check genotype. IDE MACHINIST SUPERVISOR * Assessment & Plan Note - Antoinette Riley PA - 09/28/2023 9:01 AM OUTSIDE MACHINIST SUPERVISOR Associated Problem(s): HIV infection (HCC) Symtuza is now a plan exclusion. Will transition to Biktarvy + Prezcobix 100% adherence encouraged to maintain viral suppression and prevent resistance. Undetectable = untransmittable. Counseling for risk reduction, adherence and pre-conception provided. 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 GONORRHOEAE/C. TRACHOMATIS AMPLIFICATION Routine 09/14/2023 10:15 AM CDT HIV infection, unspecified symptom status (HCC) Routine screening for STI (sexually transmitted infection) HIV-1 GENOTYPIC DRUG RESISTANCE Routine 09/14/2023 10:05 AM CDT HIV infection, unspecified symptom status (HCC) On highly active antiretroviral therapy (HAART) T-SPOT.TB Routine 09/14/2023 10:05 AM CDT HIV infection, unspecified symptom status (HCC) EGFR Routine 09/14/2023 10:05 AM CDT HIV infection, unspecified symptom status (HCC) On highly active antiretroviral therapy (HAART) DIFFERENTIAL AUTO Routine 09/14/2023 10: 05 AM CDT HIV infection, unspecified symptom status (HCC) On highly active antiretroviral therapy (HAART) CBC WITH AUTO DIFFERENTIAL Routine 09/14/2023 10:05 AM CDT HIV infection, unspecified symptom status (HCC) On highly active antiretroviral therapy (HAART) HEPATITIS C ANTIBODY Routine 09/14/2023 10:05 AM CDT HIV infection, unspecified symptom status (HCC) Routine screening for STI (sexually transmitted infection) HIV-1 RNA, QUANTITATIVE, PCR Routine 09/14/2023 10:05 AM CDT HIV infection, unspecified symptom status (HCC) On highly active antiretroviral therapy (HAART) RPR Routine 09/14/2023 10:05 AM CDT HIV infection, unspecified symptom status (HCC) Routine screening for STI (sexually transmitted infection) T-HELPER CELLS (CD4) COUNT Routine 09/14/2023 10:05 AM CDT HIV infection, unspecified symptom status (HCC) On highly active antiretroviral therapy (HAART) HEMOGLOBIN A1C Routine 09/14/2023 10:05 AM CDT HIV infection, unspecified symptom status (HCC) LIPID PANEL Routine 09/14/2023 10:05 AM CDT HIV infection, unspecified symptom status (HCC) COMPREHENSIVE METABOLIC PANEL Routine 09/14/2023 10:05 AM CDT HIV infection, unspecified symptom status (HCC) On highly active antiretroviral therapy (HAART) documented in this encounter Results * N. gonorrhoeae/C. trachomatis Amplification Urine (09/14/2023 10:15 AM CDT) C. trachomatis Not Detected Not Detected JUS [facility]ONH N. gonorrhoeae Not Detected Not Detected [facility] Comment: Interpretive Data Testing performed by the [facility]. This assay detects Chlamydia trachomatis and [...] was last revised on 2018. Urine (None) 09/14/2023 10:1 5 AM CDT 09/14/2023 11:32 AM CDT Antoinette GANNON LAB MICROBIOLOGY - GENERAL ORDERABLES Final Result [facility] Department [place] [address] * eGFR (09/14/2023 10:05 AM CDT) eGFR >90 90 - 130 mL/min/1. 73 m2 [facility] Comment: Interpretive Data Reference Interval Normal ?>/= [...] of Race in Diagnosing Kidney Disease, JASN 2021). The CKD-EPI equation should not be used for patients with unstable renal function and has not been validated in children and those over 70. Current interpretive data was last reviewed 2021. Blood 09/14/2023 10:0 5 AM CDT 09/14/2023 11:33 AM CDT Antoinette GANNON LAB BLOOD ORDERABLES Final Result [facility] Department [place] [address] * (ABNORMAL) Differential, auto (09/14/2023 10:05 AM CDT) Neutrophil abs 1.5(L) 1.7 - 6.5 K/cumm [facility] Imm gran abs 0.0 0.0 - 0.1 K/cumm [facility] Lymphocyte abs 1.0 0.8 - 3.3 K/cumm [facility] Monocyte abs 0.4 0.2 - 0.8 K/cumm [facility] Eosinophil abs 0.1 0.0 - 0.5 K/cumm [facility] Basophil abs 0.0 0.0 - 0.1 K/cumm [facility] Neutrophil pct 48.3 % [facility] Comment: Interpretive Data Percent cell count reference ranges are not reported, since discordance with absolute values may lead to misinterpretation of CBC data. Current Interpretive Data was last revised on 2018. Imm gran pct 1.3 % [facility] Comment: Interpretive Data Percent cell count reference ranges are not reported, since discordance with absolute values may lead to misinterpretation of CBC data. Current Interpretive Data was last revised on 2018. Lymphocyte pct 32.3 % [facility] Comment: Interpretive Data Percent cell count reference ranges are not reported, since discordance with absolute values may lead to misinterpretation of CBC data. Current Interpretive Data was last revised on 2018. Monocyte pct 13.9 % [facility] Comment: Interpretive Data Percent cell count reference ranges are not reported, since discordance with absolute values may lead to misinterpretation of CBC data. Current Interpretive Data was last revised on 2018. Eosinophil pct 3.2 % [facility] Comment: Interpretive Data Percent cell count reference ranges are not reported, since discordance with absolute values may lead to misinterpretation of CBC data. Current Interpretive Data was last revised on 2018. Basophil pct 1.0 % [facility] Comment: Interpretive Data Percent cell count reference ranges are not reported, since discordance with absolute values may lead to misinterpretation of CBC data. Current Interpretive Data was last revised on 2018. Blood 09/14/2023 10:0 5 AM CDT 09/14/2023 11:33 AM CDT Antoinette GANNON LAB BLOOD ORDERABLES Final Result Performing Organization Address [facility] de Phone Number [facility] [place] [address] * (ABNORMAL) Hemoglobin A1c (09/14/2023 10:05 AM CDT) Hgb A1C 5.9(H) 4.0 - 5.6 % [facility] Estimated Average Glucose 123 mg/dL [facility] Comment: The ADA recommends reporting an estimated [...] BLOOD ORDERABLES Final Result Performing Organization Address [facility] Co de Phone Number [facility] [place] [address] * Hepatitis C antibody Blood (09/14/2023 10:05 AM CDT) Pathologist [facility] Hep C Ab Nonreactive Nonreactive [facility] Comment:Antibodies to HCV no t detected. Does NOT exclude the possibility of recent exposure to HCV. Current interpretive data was last revised on 22 Blood 09/14/2023 10:0 5 AM CDT 09/14/2023 11:33 AM CDT Antoinette GANNON LAB MICROBIOLOGY - GENERAL ORDERABLES Final Result [facility] Department [place] [address] * (ABNORMAL) Lipid panel (09/14/2023 10:05 AM CDT) Pathologist [facility] Cholesterol 205(H) 30 - 199 mg/dL [facility] Comment: Interpretive Data Ages < or [...] revised on 2018. Triglycerides 122 <=149 mg/dL [facility] Comment: Interpretive Data Ages < or [...] revised on 2018. HDL 41 >=40 mg/dL [facility] Comment: Interpretive Data Ages < or = [...] on 2018. LDL, calculated 140(H) <=129 mg/dL [facility] Comment: Interpretive Data Ages < or [...] revised on 2018. Non-HDL Cholesterol 164 mg/dL [facility] Comment: Interpretive Data Ages < or = [...] last revised on 2018. Chol/HDL ratio 5 [facility] Blood 09/14/2023 10:0 5 AM CDT 09/14/2023 11:33 AM CDT Antoinette GANNON LAB BLOOD ORDERABLES Final Result [facility] Department [place] [address] * T-SPOT.TB Blood (09/14/2023 10:05 AM CDT) [facility] T-SPOT.TB Negative SeeBelow [facility] Comment: Normal Value: Negative A negative test [...] test. T-SPOT.TB Panel A Spot Count 0 [facility] T-SPOT.TB Panel B Spot Count 0 [facility] T-SPOT.TB Negative Control Passed [facility] T-SPOT.TB Positive Control Passed [facility] Comment: Test Performed at: [facility] [address] [place], [place] ??[address] ? CONOR WALL MD,PHD Blood 09/14/2023 10:0 5 AM CDT 09/14/2023 3:13 PM CDT Antoinette GANNON LAB MICROBIOLOGY - GENERAL ORDERABLES Final Result [facility] Department [place] [address] * HIV-1 Genotypic Drug Resistance (09/14/2023 10:05 AM CDT) Pathologist [facility] HIV-1, genotypic drug resistance INTERP [facility] Comment: Interpretation of results: ?? SUSC= Susceptible PLR= Potential low-level resistance LR= Low-level resistance IR= Intermediate resistance HR= High-level resistance HIV-1 group M subtype B [facility] Nucleos(t)aram RT mutations None [facility] Reverse Transcriptase failed codons None [facility] Abacavir SUSC [facility] Didanosine SUSC [facility] Emtricitabine SUSC [facility] Lamivudine SUSC [facility] Stavudine SUSC [facility] Tenofovir SUSC [facility] Zidovudine SUSC [facility] Nonnucleoside RT mutations V106I [facility] Doravirine PLR [facility] Efavirenz SUSC [facility] Etravirine PLR [facility] Nevirapine PLR [facility] Rilpivirine PLR [facility] Protease Mutations None [facility] Protease failed codons None [facility] Atazanavir w/ Ritonavir SUSC [facility] Darunavir w/ Ritonavir SUSC [facility] Fosamprenavir w/ Ritonavir SUSC [facility] Indinavir w/ Ritonavir SUSC [facility] Lopinavir w/ Ritonavir SUSC [facility] Nelfinavir SUSC [facility] Saquinavir w/ Ritonavir SUSC [facility] Tipranavir w/ Ritonavir SUSC [facility] Integrase Mutations None [facility] Integrase failed codons None [facility] Bictegravir SUSC [facility] Cabotegravir SUSC [facility] Dolutegravir SUSC [facility] Elvitegravir SUSC [facility] Raltegravir SUSC [facility] Prior documented HIV RNA copies/mL See Footnote [facility] Comment: RESULT: 1000 to 1,000,000 ADDITIONAL INFORMATION Testing was performed using the FDA-approved, targeted next-generation sequencing-based TwitJump HIV-1 Genotyping Assay ([employer], [employer]), with the minimum variant detection frequency set at 5%. Actual ability to detect minor variants depends on viral load in the plasma specimen. Resistance interpretation was generated with the most current version of the [employer] HIV Drug Resistance Database (https://hivdb.[place].edu/page/algorithm-updates/). Results obtained by different sequencing assay methods should not be used interchangeably. Test Performed by: [place] [address] Golf Teacher: Bo Hair M.D. Ph.D.; CLIA# [id number] Blood 09/14/2023 10:0 5 AM CDT 09/14/2023 11:33 AM CDT Antoinette GANNON LAB MICROBIOLOGY - GENERAL ORDERABLES Final Result [facility] Department [place] [address] * RPR Blood (09/14/2023 10:05 AM CDT) [facility] RPR Nonreactive Nonreactive [facility] Blood 09/14/2023 10:0 5 AM CDT 09/14/2023 11:33 AM CDT Antoinette GANNON LAB MICROBIOLOGY - GENERAL ORDERABLES Final Result Performing Organization Address [facility] Co de Phone Number [facility] [place] [address] * (ABNORMAL) HIV-1 RNA PCR, quantitative Blood (09/14/2023 10:05 AM CDT) [facility] HIV-1 RNA Detected( A) [facility] Comment: The quantifiable range of this assay is 20 copies/mL to 10,000,000 copies/mL (1.30 log copies/mL to 7.00 log copies/mL). ??Testing was performed by the NIELS 6800 HIV-1 Test([employer] Testing performed at [facility] Current Interpretive Data was last revised on 2021. HIV-1 RNA, copies/mL 421,000 copies/mL [facility] HIV-1 RNA, log 5.62 log cps/mL [facility] Blood 09/14/2023 10:0 5 AM CDT 09/14/2023 11:33 AM CDT Antoinette GANNON LAB MICROBIOLOGY - GENERAL ORDERABLES Final Result Performing Organization Address [facility] de Phone Number [facility] Department [place] [address] * Comprehensive metabolic panel (09/14/2023 10:05 AM CDT) [facility] Sodium 145 135 - 145 mmol/L [facility] Potassium, pl 3.5 3.3 - 4.9 mmol/L [facility] Chloride 108 97 - 110 mmol/L [facility] CO2 28 22 - 32 mmol/L [facility] Anion gap 9 2 - 15 mmol/L [facility] BUN 9 6 - 25 mg/dL [facility] Creatinine 0.96 0.80 - 1.30 mg/dL [facility] Glucose 108 70 - 199 mg/dL [facility] Comment: Interpretive Data Fasting glucose [...] 2022. Calcium 9.4 8.5 - 10.3 mg/dL [facility] Bilirubin, total 0.4 0.1 - 1.2 mg/dL [facility] Protein, pl 8.1 6.5 - 8.5 g/dL [facility] Albumin 4.3 3.5 - 5.0 g/dL [facility] Alk phos 71 40 - 130 Units/L [facility] ALT 37 7 - 55 Units/L [facility] AST 27 10 - 50 Units/L [facility] Blood 09/14/2023 10:0 5 AM CDT 09/14/2023 11:33 AM CDT Antoinette GANNON LAB BLOOD ORDERABLES Final Result [facility] [facility] Department [place] [address] * (ABNORMAL) T-helper cells (CD4) count (09/14/2023 10:05 AM CDT) CD4 pct 2(L) 31 - 64 % [facility] Comment:Repeated and verifie d. CD4 Absolute <35(L) 365 - 1,294 cells/mcL [facility] Comment:Repeated and verifie d. Blood 09/14/2023 10:0 5 AM CDT 09/14/2023 11:18 AM CDT Antoinette GANNON LAB BLOOD ORDERABLES Final Result [facility] Department [place] [address] * (ABNORMAL) CBC with auto differential (09/14/2023 10:05 AM CDT) [facility] WBC 3.1(L) 3.8 - 9.9 K/cumm [facility] Hgb 11.4(L) 13.0 - 17.5 g/dL [facility] Comment: Interpretive Data A reference range for this assay has not been established for patients with an unknown legal sex. Please refer to the laboratory test catalog for established sex-specific reference intervals. Current interpretive data was last revised on 2023. Hct 35.0(L) 38.9 - 50.3 % [facility] Comment: Interpretive Data A reference range for this assay has not been established for patients with an unknown legal sex. Please refer to the laboratory test catalog for established sex-specific reference intervals. Current interpretive data was last revised on 2023. Plt 176 150 - 400 K/cumm [facility] MPV 11.0 9.1 - 12.3 fL [facility] RBC 4.26(L) 4.30 - 5.80 M/cumm [facility] Comment: Interpretive Data A reference range for this assay has not been established for patients with an unknown legal sex. Please refer to the laboratory test catalog for established sex-specific reference intervals. Current interpretive data was last revised on 2023. MCV 82.2 81.3 - 96.4 fL [facility] MCH 26.8(L) 27.1 - 33.3 pg [facility] MCHC 32.6 32.3 - 35.7 g/dL [facility] RDW CV 13.1 11.1 - 14.9 % [facility] RDW SD 39.1 35.7 - 48.1 fL [facility] NRBC abs 0.00 0.00 - 0.01 K/cumm [facility] Blood 09/14/2023 10:0 5 AM CDT 09/14/2023 11:33 AM CDT Antoinette GANNON LAB BLOOD ORDERABLES Final Result [facility] Department [place] [address] documented in this encounter Visit Diagnoses Diagnosis HIV infection, unspecified symptom status (HCC)- Primary On highly active antiretroviral therapy (HAART) Routine screening for STI (sexually transmitted infection) Screening examination for venereal disease Allergy, subsequent encounter Hyperlipidemia, unspecified hyperlipidemia type documented in this encounter Discontinued Medications Medication Sig Discontinue Reason Start Date End Da te cetirizine (ZyrTEC) 10 mg tabletIndications:HIV disease (CMS/HCC) (HCC),Allergy, subsequent encounter Take 1 tablet (10 mg total) by mouth daily Reorder 10/04/2021 09/14/2023 atorvastatin (LIPITOR) 10 mg tablet Take 1 tablet (10 mg total) by mouth daily Reorder 01/10/2023 09/14/2023 larutpwwg-uaxy-hgaxh-tenof ala (Symtuza) [phone] mg tabletIndications:HIV disease (CMS/HCC) (HCC) Take 1 tablet by mouth daily Reorder 02/05/2023 09/14/2023 dolutegravir (TIVICAY) 50 mg tabletIndications:HIV disease (CMS/HCC) (HCC) Take 1 tablet (50 mg total) by mouth daily Reorder 02/05/2023 09/14/2023 polyethylene glycol (GoLYTELY) 236-22.74-6.74 -5.86 gram solutionIndications:colono scopy Drink Golytely/Nulytely 1/2 jug at 6:00 pm on 01/23/2022. Drink Golytely/Nulytely 1/2 jug at 4 hours before leaving home on 01/24/2022. Therapy completed 12/07/2021 09/14/2023 fqdhinhsi-cqxq-ieuim-tenof ala (Symtuza) [phone] mg tabletIndications:HIV disease (CMS/HCC) (HCC) Take 1 tablet by mouth daily Reorder 09/14/2023 09/14/2023 dolutegravir (TIVICAY) 50 mg tabletIndications:HIV disease (CMS/HCC) (HCC) Take 1 tablet (50 mg total) by mouth daily Reorder 09/14/2023 09/14/2023 cetirizine (ZyrTEC) 10 mg tabletIndications:HIV disease (CMS/HCC) (HCC),Allergy, subsequent encounter Take 1 tablet (10 mg total) by mouth daily Reorder 09/14/2023 09/14/2023 atorvastatin (LIPITOR) 10 mg tabletIndications:Hyperlip idemia, unspecified hyperlipidemia type Take 1 tablet (10 mg total) by mouth daily Reorder 09/14/2023 09/14/2023 documented as of this encounter Care Teams Data Abstractor Relationship Specialty Start Date End Date Antoinette Riley PA PCP - General Infectious Diseases 08/09/22 documented as of this encounter
--- OUTSIDE RECORDS SUMMARY | 2024-11-22 10:52 | XMS_ITS | Encounter Summary ---
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 So no further questions needed. HUNTER Umanzor * Telephone Encounter - Pro Lara Soraya. - 08/31/2022 8:55 AM [facility] for patient to participate in a sleep study. Wanting o know if patient did the sleep study. documented in this encounter Plan of Treatment Not on file documented as of this encounter Visit Diagnoses Not on filedocumented in this encounter Care Teams Singer Back Tender Relationship Specialty Start Date End Date Antoinette Riley PA PCP - General Infectious Diseases 08/09/22 documented as of this encounter
--- OUTSIDE RECORDS SUMMARY | 2024-11-22 10:52 | XMS_ITS | Encounter Summary ---
Author Organization [facility] Address [address] [place] [address] Phone Care Team Providers Care Staff Field Engineer Name Role Phone Antoinette Riley Primary Care Provider [phone]- [phone] Encounter Details Date Type Department Care Team (Late st Contact Info) Description 02/05/2023 Orders Only [facility] Infectious Diseases [address] [place] [address] [address] [place] [address] Antoinette Riley PA [address] [facility] [address] [place] [address] HIV disease (CMS/HCC) (HCC) Social [...] on file 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 Gender Identity Not on file Sexual Orientation Not on file documented as of this encounter Ordered Prescriptions Prescription Sig Dispense Quantity Refills Last Filled Start Date End Date dolutegravir (TIVICAY) 50 mg tabletIndications: HIV disease (CMS/HCC) (HCC) Take 1 tablet (50 mg total) by mouth daily 90 tablet 2 02/05/2023 09/14/2023 ftplrmgqq-tefv-qax ri-tenof ala (Symtuza) [phone] mg tabletIndications: HIV disease (CMS/HCC) (HCC) Take 1 tablet by mouth daily 90 tablet 2 02/05/2023 09/14/2023 documented in this encounter Plan of Treatment Not on file documented as of this encounter Visit Diagnoses Diagnosis HIV disease (CMS/HCC) (HCC) Human immunodeficiency virus [HIV] disease documented in this encounter Discontinued Medications Medication Sig Discontinue Reason Start Date End Da te xsmnwqngr-fmrd-mrscv-ten of ala (Symtuza) [phone] mg tabletIndications:HIV disease (CMS/HCC) (HCC) Take 1 tablet by mouth daily Reorder 04/24/2022 02/05/2023 dolutegravir (TIVICAY) 50 mg tabletIndications:HIV disease (CMS/HCC) (HCC) Take 1 tablet (50 mg total) by mouth daily Reorder 04/24/2022 02/05/2023 documented as of this encounter Care Teams Staff Field Engineer Relationship Specialty Start Date End Date Antoinette Riley PA PCP - General Infectious Diseases 08/09/22 documented as of this encounter
--- OUTSIDE RECORDS SUMMARY | 2024-11-22 10:52 | XMS_ITS | Encounter Summary ---
Author Organization [facility] Address [address] [facility] [address] [place] [address] Phone Care Team Providers Care Compression Molding Machine Operator Name Role Phone Gucci Vilchis MD Primary Care Provider [phone] Reason for Visit * Reason Comments Follow-up HIV Positive/AIDS Encounter Details Date Type Department Care Team (Latest Contact Info) Description 07/05/2022 3:20 PM CDT Office Visit [facility] Infectious Diseases [address] [place] [address] [address] [place] [address] Antoinette Riley PA [address] [address] HIV infection, unspecified symptom status (HCC) (Primary Dx); On highly active antiretroviral therapy (HAART); Routine screening for STI (sexually transmitted infection); Sleep apnea, unspecified type Social History Tobacco Use Types Packs/Day [...] on file Legal Sex Male 7:55 PM [employer] Gender Identity Not on file Sexual Orientation Not on file documented as of this encounter Last Filed Vital Signs Vital Sign Reading Time Taken Comments Blood Pressure 111/76 07/05/2022 3:47 PM CDT Pulse 75 07/05/2022 3:47 PM CDT Temperature 36.1 ??C (97 ??F) 07/05/2022 3:47 PM CDT Respiratory Rate - - Oxygen Saturation - - Inhaled Oxygen Concentration - - Weight 101.6 kg (224 lb) 07/05/2022 3:47 PM CDT Height 182.9 cm (6') 07/05/2022 3:47 PM CDT Body Mass Index 30.38 07/05/2022 3:47 PM CDT documented in this encounter Progress Notes * Antoinette Riley PA - 07/05/2022 3:20 PM CDT Subjective/Objective Patient ID: Dashawn Howell is a 51 y.o. male. Chief Complaint Follow-up and HIV Positive/AIDS HPI Mr. DASHAWN HOWELL is a 51 year old man initially diagnosed with HIV in 1998 by patient report. cART history includes Combivir/Sustiva, Truvada/ddI/Prezista/Norvir and Atripla. Past Genotypes: November 2010- M184I/M, K103N, L100I/L, and P225H/P; April 2017- K103N, P225H. He was previously on Genvoya/Prezista but had been off medications September 2020 - December 2020. 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 He [...] 411 (21%) and VL 53 copies. He reports a history of snoring and waking gasping for air. Dentist informed him he has enlarged tongue and needs sleep study. He had a recent apneic episode during colonoscopy. He smokes an occasional Black and Mild. Drinks occasionally. Denies use of any illicit drugs. Reports sex with female partners, but states he is not sexually active at this time. He declines triple screening. Review of Systems Constitutional: Negative for chills, fatigue and fever. HENT: Negative for sore throat and trouble swallowing. Eyes: Negative for visual disturbance. Respiratory: Positive for apnea. Negative for cough and shortness of breath. Cardiovascular: Negative for chest pain and palpitations. Gastrointestinal: Negative for abdominal pain, diarrhea, nausea and vomiting. Genitourinary: Negative for dysuria, flank pain, genital sores, hematuria and penile discharge. Musculoskeletal: Negative for arthralgias and myalgias. Skin: Negative for color change, rash and wound. Neurological: Negative for dizziness and headaches. Hematological: Negative for adenopathy. Physical Exam Vitals reviewed. Constitutional: General: He [...] and Affect: Mood normal. Behavior: Behavior normal. Vitals BP 111/76 (BP Location: Right arm, Patient Position: Sitting) Pulse 75 Temp 36.1 ??C (97 ??F) (Temporal) Ht 182.9 cm (6') Wt 101.6 kg (224 lb) BMI 30.38 kg/m?? Immunization History Administered Date(s) Administered Hep A, Adult 12/31/2012 Hep A, Unspecified 12/31/2012 Hep B Vaccine 06/02/2014 Influenza, Quadrivalent, Cell Culture-based MDCK, Preservative Free, Antibiotic Free, Tjvwuzxkhedek74/17/2019, 10/29/2020 Influenza, Trivalent, Intramuscular 10/17/2011, 08/06/2012, 11/25/2013 Influenza, Trivalent, Preservative Free, Intramuscular 08/16/2016 Moderna SARS-CoV-2 Vaccination (12+ YRS) 01/01/2021, 01/29/2021 PPD TEST 10/26/2010, 12/12/2011, 12/31/2012 Pfizer SARS-CoV-2 Vaccination (12+ yrs) PURPLE 10/05/2021 Pneumococcal Conjugate PCV 13 06/02/2014 Pneumococcal Polysaccharide PPV23 12/31/2012, 06/28/2021 Tdap 07/05/2018 Current Outpatient Medications: cetirizine (ZyrTEC) 10 mg tablet meuvqbtoi-rmal-xrcsb-tenof ala (Symtuza) [phone] mg tablet dolutegravir (TIVICAY) 50 mg tablet flunisolide (NASALIDE) 25 mcg (0.025 %) spray,non-aerosol polyethylene glycol (GoLYTELY) 236-22.74-6.74 -5.86 gram solution No Known Allergies STD SCREENING -SYPHILIS Lab Results Component Value Date LABRPR Nonreactive 07/05/2022 LABRPR Nonreactive 06/28/2021 LABRPR Nonreactive 10/29/2020 -MICRO including GONORRHEA, CHLAMYDIA AND TRICHOMONAS Lab Results Component Value Date MICROBIOLOGY 06/28/2021 [...] trachomatis rRNA Negative for: Neisseria gonorrhoeae rRNA [id number] NOT DETECTED 12/31/2012 [id number] NOT DETECTED 12/31/2012 [id number] NOT DETECTED 11/25/2013 [id number] NOT DETECTED 11/25/2013 No results found for: TRICHOMONU, TRICHOMONAS ANNUAL LABS AND SCREENING -TB SCREENING Lab Results Component Value Date IFNGAMMAREL Negative 07/05/2018 [id number] See Comment 08/16/2016 PPD Negative 07/05/2022 -LIPIDS Lab Results Component Value Date CHOL 267 (H) 07/05/2022 CHOL 200 (H) 10/29/2020 CHOL 224 (H) 10/28/2019 TRIG 196 (H) 07/05/2022 TRIG 259 (H) 10/29/2020 TRIG 121 10/28/2019 HDL 42 07/05/2022 HDL 37 (L) 10/29/2020 HDL 39 (L) 10/28/2019 LDL 178 (H) 08/16/2016 LDL 149 (H) 07/15/2015 CDRHIST 216 08/16/2016 CDRHIST 170 07/15/2015 LDLCALC 186 (H) 07/05/2022 LDLCALC 111 10/29/2020 LDLCALC 161 (H) 10/28/2019 NONHDLCHOL 225 07/05/2022 NONHDLCHOL 163 10/29/2020 NONHDLCHOL 185 10/28/2019 -GLYCEMIC CONTROL Lab Results Component Value Date HGBA1C 5.9 (H) 07/05/2022 HGBA1C 6.0 (H) 10/29/2020 HGBA1C 6.0 (H) 10/28/2019 -HEPATITIS C SCREENING Lab Results Component Value Date HEPCAB Nonreactive 07/05/2022 -IF ON TDF, SCREENING FOR PROTEINURIA Lab Results Component Value Date PROTURQL Negative 06/28/2021 PROTURQL Negative 10/29/2020 PROTURQL Negative 10/28/2019 -HPV SCREENING ON CERVICAL PAP No results found for: HIRSKHPVRNA, HPVG16, [id number], [id number] -PROSTATE CANCER SCREENING IF HIGH RISK Lab Results Component Value Date PSA 0.80 06/28/2021 BASELINE SCREENING -HEPATITIS A IMMUNITY STATUS Lab Results Component Value Date HAV Positive (A) 08/16/2016 -HEPATITIS B IMMUNITY STATUS Lab Results Component Value Date HEPBSAB Positive 08/16/2016 HEPBSAB 384 08/16/2016 -TOXOPLASMA IMMUNITY STATUS Lab Results Component Value Date TOXOIGG Negative 12/05/2018 [id number] < OR = 0.90 11/25/2013 -CMV IMMUNITY STATUS No results found for: CMVIGG -G6PD LEVEL (NORMAL >4.6) Lab Results Component Value Date G6PD Normal 08/16/2016 -[id number] STATUS Lab Results Component Value Date [id number] Negative 11/25/2013 CANCER SCREENING 01/24/2022 - repeat in 10 years Assessment/Plan This is a 51 year old man presenting to ID clinic for routine HIV follow up. He restarted cART in Dec 2020: Symtuza/Tivicay after being off Genvoya/Prezista since September 2020. He is feeling well and reports 100% adherence to his regimen. He had an apneic episode during a colonoscopy in January and notes a history of snoring and frequent waking gasping for air. Diagnoses and all orders for this visit: HIV infection, unspecified symptom status (HCC) (B20) (Primary) - CBC with auto differential; Future - Comprehensive metabolic panel (Outreach); Future - T-helper cells (CD4) count; Future - HIV-1 RNA PCR, quantitative; Future - RPR Blood; Future - T-SPOT.TB; Future - Lipid panel; Future - Hemoglobin A1c; Future - Hepatitis C antibody; Future - Comprehensive metabolic panel, without glucose (Outreach) - Glucose, random (Outreach) - Differential, auto - eGFR On highly active antiretroviral therapy (HAART) (Z79.899) - CBC with auto differential; Future - Comprehensive metabolic panel (Outreach); Future - T-helper cells (CD4) count; Future - HIV-1 RNA PCR, quantitative; Future - Comprehensive metabolic panel, without glucose (Outreach) - Glucose, random (Outreach) - Differential, auto - eGFR Routine screening for STI (sexually transmitted infection) (Z11.3) - RPR Blood; Future - Hepatitis C antibody; Future Sleep apnea, unspecified type (G47.30) - Ambulatory referral to Sleep Medicine; Future RTC 6 months The supervising physician present in this office suite for this Physician Jewelry Store Manager, Antoinette Riley PA-C is Dr. Emeka Wallace. documented in this encounter Miscellaneous Notes * Assessment & Plan Note - Antoinette Riley PA - 07/15/2022 6:03 PM CDT Associated Problem(s): Obstructive sleep apnea Patient experienced apneic episode during colonoscopy. Referred to sleep medicine for sleep study. * Assessment & Plan Note - Antoinette Riley PA - 07/15/2022 6:02 PM CDT Associated Problem(s): On highly active antiretroviral therapy (HAART) Routine lab monitoring on long term care phlebotomist HIV meds to assess for drug toxicity and efficacy. * Assessment & Plan Note - Antoinette Riley PA - 07/15/2022 6:02 PM CDT Associated Problem(s): HIV infection (HCC) Continue Symtuza/Tivicay 100% adherence encouraged to maintain viral suppression and prevent resistance. Undetectable = untransmittable. Counseling for risk reduction, adherence and pre-conception provided. documented in this encounter Plan of Treatment Not on file documented as of this encounter Procedures Procedure Name Priority Date/Time Associated Diagnosis Comments T-SPOT.TB Routine 07/05/2022 4:27 PM CDT HIV infection, unspecified symptom status (HCC) GLUCOSE, RANDOM (OUTREACH) Routine 07/05/2022 4:27 PM CDT HIV infection, unspecified symptom status (HCC) On highly active antiretroviral therapy (HAART) EGFR Routine 07/05/2022 4:27 PM CDT HIV infection, unspecified symptom status (HCC) On highly active antiretroviral therapy (HAART) DIFFERENTIAL AUTO Routine 07/05/2022 4:2 7 PM CDT HIV infection, unspecified symptom status (HCC) On highly active antiretroviral therapy (HAART) COMPREHENSIVE METABOLIC PANEL WITHOUT GLUCOSE (OUTREACH) Routine 07/05/2022 4:27 PM CDT HIV infection, unspecified symptom status (HCC) On highly active antiretroviral therapy (HAART) HC COMP METABOLIC PANEL Routine 07/05/2022 4:27 PM CDT HIV infection, unspecified symptom status (HCC) On highly active antiretroviral therapy (HAART) CBC WITH AUTO DIFFERENTIAL Routine 07/05/2022 4:27 PM CDT HIV infection, unspecified symptom status (HCC) On highly active antiretroviral therapy (HAART) HEPATITIS C ANTIBODY Routine 07/05/2022 4:27 PM CDT HIV infection, unspecified symptom status (HCC) Routine screening for STI (sexually transmitted infection) RPR Routine 07/05/2022 4:27 PM CDT HIV infection, unspecified symptom status (HCC) Routine screening for STI (sexually transmitted infection) T-HELPER CELLS (CD4) COUNT Routine 07/05/2022 4:27 PM CDT HIV infection, unspecified symptom status (HCC) On highly active antiretroviral therapy (HAART) HEMOGLOBIN A1C Routine 07/05/2022 4:27 PM CDT HIV infection, unspecified symptom status (HCC) LIPID PANEL Routine 07/05/2022 4:27 PM CDT HIV infection, unspecified symptom status (HCC) HIV-1 RNA, QUANTITATIVE, PCR Routine 07/05/2022 4:21 PM CDT HIV infection, unspecified symptom status (HCC) On highly active antiretroviral therapy (HAART) documented in this encounter Results * (ABNORMAL) eGFR (07/05/2022 4:27 PM CDT) [facility] eGFR 75(L) 90 - 130 mL/min/1. 73 m2 [facility] Comment: Interpretive Data Reference Interval Normal ?>/= [...] of Race in Diagnosing Kidney Disease, JASN 2020). The CKD-EPI equation should not be used for patients with unstable renal function and has not been validated in children and those over 70. Current interpretive data was last reviewed 2021. Blood 07/05/2022 4:27 PM CDT 07/05/2022 7:33 PM CDT Antoinette GANNON LAB BLOOD ORDERABLES Final Result Performing Organization Address City/State/[facility] Co de Phone Number [facility] [place] [address] * (ABNORMAL) Differential, auto (07/05/2022 4:27 PM CDT) Neutrophil abs 1.3(L) 1.7 - 6.5 K/cumm [facility] Imm gran abs 0.0 0.0 - 0.1 K/cumm [facility] Lymphocyte abs 2.2 0.8 - 3.3 K/cumm [facility] Monocyte abs 0.3 0.2 - 0.8 K/cumm [facility] Eosinophil abs 0.2 0.0 - 0.5 K/cumm [facility] Basophil abs 0.0 0.0 - 0.1 K/cumm [facility] Neutrophil pct 32.1 % [facility] Comment: Interpretive Data Percent cell count reference ranges are not reported, since discordance with absolute values may lead to misinterpretation of CBC data. Current Interpretive Data was last revised on 2018. Imm gran pct 0.3 % [facility] Comment: Interpretive Data Percent cell count reference ranges are not reported, since discordance with absolute values may lead to misinterpretation of CBC data. Current Interpretive Data was last revised on 2018. Lymphocyte pct 54.3 % [facility] Comment: Interpretive Data Percent cell count reference ranges are not reported, since discordance with absolute values may lead to misinterpretation of CBC data. Current Interpretive Data was last revised on 2018. Monocyte pct 8.3 % [facility] Comment: Interpretive Data Percent cell count reference ranges are not reported, since discordance with absolute values may lead to misinterpretation of CBC data. Current Interpretive Data was last revised on 2018. Eosinophil pct 4.0 % [facility] Comment: Interpretive Data Percent cell count reference ranges are not reported, since discordance with absolute values may lead to misinterpretation of CBC data. Current Interpretive Data was last revised on 2018. Basophil pct 1.0 % [facility] Comment: Interpretive Data Percent cell count reference ranges are not reported, since discordance with absolute values may lead to misinterpretation of CBC data. Current Interpretive Data was last revised on 2018. Blood 07/05/2022 4:27 PM CDT 07/05/2022 6:46 PM CDT us Antoinette GANNON LAB BLOOD ORDERABLES Final Result [facility] Department [place] [address] * Glucose, random (Outreach) (07/05/2022 4:27 PM CDT) Glucose 85 70 - 199 mg/dL [facility] Comment: Interpretive Data Fasting glucose >/= [...] classification and Diagnosis of Diabetes Diabetes Care 2017;40 (Suppl. 1):S11. Current interpretive data was last revised 2017. Blood 07/05/2022 4:27 PM CDT 07/05/2022 6:46 PM CDT Antoinette GANNON LAB BLOOD ORDERABLES Final Result [facility] Department [place] [address] * Comprehensive metabolic panel, without glucose (Outreach) (07/05/2022 4:27 PM CDT) Sodium 141 135 - 145 mmol/L [facility] Potassium, pl 3.3 3.3 - 4.9 mmol/L [facility] Chloride 103 97 - 110 mmol/L [facility] CO2 29 22 - 32 mmol/L [facility] Anion gap 9 2 - 15 mmol/L [facility] BUN 10 8 - 25 mg/dL [facility] Creatinine 1.18 0.80 - 1.30 mg/dL [facility] Calcium 9.5 8.5 - 10.3 mg/dL [facility] Protein, pl 7.8 6.5 - 8.5 g/dL [facility] Albumin 4.7 3.5 - 5.0 g/dL [facility] Bilirubin, total 0.4 0.1 - 1.2 mg/dL [facility] Alk phos 66 40 - 130 Units/L [facility] AST 21 10 - 50 Units/L [facility] ALT 28 7 - 55 Units/L [facility] Blood 07/05/2022 4:27 PM CDT 07/05/2022 6:46 PM CDT Antoinette GANNON LAB BLOOD ORDERABLES Final Result Performing Organization Address [facility] Co de Phone Number [facility] [place] [place] [address] * Hepatitis C antibody (07/05/2022 4:27 PM CDT) [facility] Hep C Ab Nonreactive Nonreactive [facility] Comment:Antibodies to HCV no t detected. Does NOT exclude the possibility of recent exposure to HCV. Blood 07/05/2022 4:27 PM CDT 07/05/2022 6:46 PM CDT Result [facility] Antoinette GANNON LAB MICROBIOLOGY - GENERAL ORDERABLES Edited Result - Final Performing Organization Address [facility] Phone Number [facility] [place] [address] * (ABNORMAL) Hemoglobin A1c (07/05/2022 4:27 PM CDT) [facility] Hgb A1C 5.9(H) 4.0 - 5.6 % [facility] Estimated Average Glucose 123 mg/dL [facility] Comment: The ADA recommends reporting an estimated Average Glucose (eAG) with all Hemoglobin A1c results using the equation derived from a study of 507 normal and diabetic adults. ??Minority populations were underrepresented and children were not included. ?? (Diabetes Care 2020; 43(S1): S66-S76). ??The eAG is not equivalent to a fasting glucose. Blood 07/05/2022 4:27 PM CDT 07/05/2022 6:46 PM CDT Antoinette GANNON LAB BLOOD ORDERABLES Final Result Performing Organization Address [facility] Co de Phone Number [facility] [place] [address] * (ABNORMAL) Lipid panel (07/05/2022 4:27 PM CDT) [facility] Cholesterol 267(H) 30 - 199 mg/dL [facility] Comment: Interpretive Data Ages < or = [...] Data was last revised on 2018. Triglycerides 196(H) <=149 mg/dL [facility] Comment: Interpretive Data Ages < or = [...] Data was last revised on 2018. HDL 42 >=40 mg/dL [facility] Comment: Interpretive Data Ages < or = [...] was last revised on 2018. LDL, calculated 186(H) <=129 mg/dL [facility] Comment: Interpretive Data Ages < or = [...] was last revised on 2018. Non-HDL Cholesterol 225 mg/dL [facility] Comment: Interpretive Data Ages [...] was last revised on 2018. Chol/HDL ratio 6 [facility] Blood 07/05/2022 4:27 PM CDT 07/05/2022 6:46 PM CDT Antoinette GANNON LAB BLOOD ORDERABLES Final Result [facility] Department [place] [address] * T-SPOT.TB (07/05/2022 4:27 PM CDT) [facility] T-SPOT.TB Negative SeeBelow [facility] Comment: Normal Value: Negative A negative [...] test. T-SPOT.TB Panel A Spot Count 0 [facility] T-SPOT.TB Panel B Spot Count 1 [facility] T-SPOT.TB Negative Control Passed [facility] T-SPOT.TB Positive Control Passed [facility] Comment: Test Performed at: [facility] [address] [place] [address] ??[phone] ? CONOR WALL MD,PHD Blood 07/05/2022 4:27 PM CDT 07/05/2022 6:50 PM CDT Antoinette GANNON LAB MICROBIOLOGY - GENERAL ORDERABLES Final Result Performing Organization Address [facility] Co de Phone Number [facility] [place] [address] * RPR Blood (07/05/2022 4:27 PM CDT) [facility] RPR Nonreactive Nonreactive [facility] Blood 07/05/2022 4:27 PM CDT 07/05/2022 6:46 PM CDT Antoinette GANNON LAB MICROBIOLOGY - GENERAL ORDERABLES Final Result Performing Organization Address [facility] Co de Phone Number [facility] [place] [address] * (ABNORMAL) T-helper cells (CD4) count (07/05/2022 4:27 PM CDT) [facility] CD4 pct 21(L) 31 - 64 % [facility] CD4 Absolute 411 365 - 1,294 cells/mcL [facility] Blood 07/05/2022 4:27 PM CDT 07/05/2022 6:46 PM CDT Antoinette GANNON LAB BLOOD ORDERABLES Final Result Performing Organization Address [facility] Co de Phone Number [facility] Department [place] [address] * (ABNORMAL) CBC with auto differential (07/05/2022 4:27 PM CDT) [facility] WBC 4.0 3.8 - 9.9 K/cumm [facility] Hgb 13.1 13.0 - 17.5 g/dL [facility] Hct 38.8(L) 38.9 - 50.3 % [facility] Plt 257 150 - 400 K/cumm [facility] MPV 10.7 9.1 - 12.3 fL [facility] RBC 4.74 4.30 - 5.80 M/cumm [facility] MCV 81.9 81.3 - 96.4 fL [facility] MCH 27.6 27.1 - 33.3 pg [facility] MCHC 33.8 32.3 - 35.7 g/dL [facility] RDW CV 13.1 11.1 - 14.9 % [facility] RDW SD 39.0 35.7 - 48.1 fL [facility] NRBC abs 0.00 0.00 - 0.01 K/cumm [facility] Blood 07/05/2022 4:27 PM CDT 07/05/2022 6:46 PM CDT Antoinette GANNON LAB BLOOD ORDERABLES Final Result Performing Organization Address [facility]/ZIP Co de Phone Number [facility] [place] [address] * (ABNORMAL) HIV-1 RNA PCR, quantitative (07/05/2022 4:21 PM CDT) [facility] HIV-1 RNA Detected( A) [facility] Comment: The quantifiable range of this assay is 20 copies/mL to 10,000,000 copies/mL (1.30 log copies/mL to 7.00 log copies/mL). ??Testing was performed by the NIELS 6800 HIV-1 Test([employer] Testing performed at [facility] Current Interpretive Data was last revised on 2021. HIV-1 RNA, copies/mL 53 copies/mL [facility] HIV-1 RNA, log 1.73 log cps/mL [facility] Blood 07/05/2022 4:21 PM CDT 07/05/2022 7:01 PM CDT Antoinette GANNON LAB MICROBIOLOGY - GENERAL ORDERABLES Final Result Performing Organization Address City/[facility]/ZIP Co de Phone Number [facility] [place] [address] documented in this encounter Visit Diagnoses Diagnosis HIV infection, unspecified symptom status (HCC)- Primary On highly active antiretroviral therapy (HAART) Routine screening for STI (sexually transmitted infection) Screening examination for venereal disease Sleep apnea, unspecified type documented in this encounter Care Teams Compression Molding Machine Operator Relationship Specialty Start Date End Date Gucci Vilchis MD PCP - General 04/16/17 08/08/22 documented as of this encounter
--- OUTSIDE RECORDS SUMMARY | 2024-11-22 10:52 | XMS_ITS | Encounter Summary ---
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 Gender Identity Not on file Sexual Orientation Not on file documented as of this encounter Medications at Time of Discharge flunisolide (NASALIDE) 25 mcg (0.025 %) spray,non-aerosolIn dications:Allergy, subsequent encounter Administer 2 sprays into each nostril 2 (two) times a day 25 mL 3 10/05/2021 atorvastatin (LIPITOR) 10 mg tabletIndications:H yperlipidemia, unspecified hyperlipidemia type Take 1 tablet (10 mg total) by mouth daily 90 tablet 2 09/14/2023 3 cetirizine (ZyrTEC) 10 mg tabletIndications:H IV disease (CMS/HCC) (HCC),Allergy, subsequent encounter Take 1 tablet (10 mg total) by mouth daily 90 tablet 2 09/14/2023 3 idlwseemn-qste-vrtt i-tenof ala (Symtuza) [phone] mg tabletIndications:H IV disease (CMS/HCC) (HCC) Take 1 tablet by mouth daily 90 tablet 2 09/14/2023 3 dolutegravir (TIVICAY) 50 mg tabletIndications:H IV disease (CMS/HCC) (HCC) Take 1 tablet (50 mg total) by mouth daily 90 tablet 2 09/14/2023 3 documented as of this encounter Discharge Disposition Disposition Code Departure Means Destination Discharge to home or self care documented in this encounter Plan of Treatment Not on file documented as of this encounter Visit Diagnoses Not on filedocumented in this encounter Care Teams Senior C Developer Relationship Specialty Start Date End Date Antoinette Riley PA PCP - General Infectious Diseases 08/09/22 documented as of this encounter
--- OUTSIDE RECORDS SUMMARY | 2024-11-22 10:52 | XMS_ITS | Encounter Summary ---
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 Current appointment is Sep [phone] documented in this encounter Plan of Treatment Not on file documented as of this encounter Visit Diagnoses Not on filedocumented in this encounter Care Teams Summer Internship Relationship Specialty Start Date End Date Antoinette Riley PA PCP - General Infectious Diseases 08/09/22 documented as of this encounter
--- OUTSIDE RECORDS SUMMARY | 2024-11-22 10:52 | XMS_ITS | Encounter Summary ---
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 Order placed and faxed documented in this encounter Plan of Treatment Not on file documented as of this encounter Visit Diagnoses Diagnosis JUSTO (obstructive sleep apnea)- Primary Obstructive sleep apnea (adult) (pediatric) documented in this encounter Orders General Supply Count Last Ordered Date First Or dered Date CPAP MACHINE WITH HEATED HUMIDIFIER 1 08/15 documented in this encounter Care Teams [employer] Executive Director Relationship Specialty Start Date End Date Antoinette Riley PA PCP - General Infectious Diseases 08/09/22 documented as of this encounter
--- OUTSIDE RECORDS SUMMARY | 2024-11-22 10:52 | XMS_ITS | Encounter Summary ---
Author Organization [facility] Address [address] [place] [address] Phone Care Team Providers Care Senior Architectural Designer Name Role Phone Gucci Vilchis MD Primary Care Provider [phone] Encounter Details Date Type Department Care Team (Late st Contact Info) Description 04/24/[address] 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 Thank you! * Telephone Encounter - Flora Humphries - 04/24/2022 11:44 AM CDT Antoinette Please refill if appropriate * Telephone Encounter - Lara Mast - 04/24/2022 11:33 AM CDT [facility], , Needing 2 new rxs for refills on Tivicay and the Sumtuza, documented in this encounter Plan of Treatment Not on file documented as of this encounter Visit Diagnoses Not on filedocumented in this encounter Care Teams Senior Architectural Designer Relationship Specialty Start Date End Date Gucci Vilchis MD PCP - General 04/16/17 08/08/22 documented as of this encounter
--- OUTSIDE RECORDS SUMMARY | 2024-11-22 10:52 | XMS_ITS | Encounter Summary ---
Author Organization [facility] Healthcare Address [address] [place] [address] Care Team Providers Care Optical Glass Wet Inspector Name Role Phone Antoinette Riley Primary Care Provider +1- [phone] Reason for Visit * Reason Comments Follow-up Encounter Details Date Type Department Care Team (Late st Contact Info) Description 08/15/2023 11:15 AM CDT Office Visit 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 Gender Identity Not on file Sexual Orientation Not on file documented as of this encounter Last Filed Vital Signs Vital Sign Reading Time Taken Comments Blood Pressure 120/70 08/15/2023 11:24 AM CDT Pulse 80 08/15/2023 11:24 AM CDT Temperature - - Respiratory Rate - - Oxygen Saturation 99% 08/15/2023 11: 24 AM CDT Inhaled Oxygen Concentration - - Weight 106.4 kg (234 lb 9.6 oz) 023 11:24 AM CDT Height 182.9 cm (6' 0.01 ) 08/15/2023 1 1:24 AM CDT Body Mass Index 31.81 08/15/2023 11:24 AM CDT documented in this encounter Progress Notes * Criselda Colon MD - 08/15/2023 11:15 AM CDT Subjective/Objective Patient ID: Dashawn Solitario is a 52 y.o. male. Chief Complaint Chief Complaint Patient presents with Follow-up HPI Active sleep problem list: Obstructive sleep apnea syndrome, severe, AHI 40 per hour, required CPAP 12 cm of water. Insomnia. Fatigue. Nonsmoker. Family history of obstructive sleep apnea. Patient is here for follow-up. His sleep study in August of 2022 showed he does have severe obstructive sleep apnea requiring CPAP of 12 cm of water but he has not started using CPAP as of yet. He is up-to-date with COVID-19 vaccine. He does have family history obstructive sleep apnea. TODAY'S VISIT HPI: Patient is here for follow-up. His sleep study showed he does have severe obstructive sleep apnea with AHI 40 per hour. His lowest ox saturation was 82% for 55 minutes. He required CPAP of 12 cm of water. He does have periodic limb movement of sleep at 7 per hour. He has not started using CPAP as of yet. His DME is [employer]. ROS: Review of other system other than what mentioned in history of present illness, is unremarkable Physical Exam: Physical exam was unremarkable. Diagnoses and all orders for this visit: Obstructive sleep apnea (Primary) Family history of sleep apnea Nonsmoker Psychophysiological insomnia Fatigue, unspecified type BMI 31.0-31.9,adult Plan: Severe obstructive sleep apnea syndrome, requiring CPAP of 12 cm of water. Patient has not started using CPAP as of yet. He is now interested in starting using CPAP. We will communicate with his [employer] company, [employer] to set up CPAP of 12 cm of water and supplies for him. Insomnia, patient was advised about sleep hygiene. Patient is nonsmoker. He is up-to-date with COVID-19 vaccine. Patient will return back in 3 months for re-evaluation. Patient was encouraged to call us with any inquiry, concern for question about their condition, lab work, x-rays or CT scans at any time, please see further details for assessment and plan in HPI. Criselda Colon MD This note was created in part with the assistance of [employer] voice recognition software. Food And Beverage Attendant variances may occur. For patients or family members viewing this note through MyChart-- this note was written as a communication tool between healthcare providers and may contain technical language, terminology and abbreviations that is difficult to interpret without advanced medical training. If you have questions or concerns regarding what is written in this note, please request to speak with the healthcare provider taking care of you or your family member. documented in this encounter Plan of Treatment Not on file documented as of this encounter Visit Diagnoses Diagnosis Obstructive sleep apnea- Primary Obstructive sleep apnea (adult) (pediatric) Family history of sleep apnea Family history of other condition Nonsmoker Other specified conditions influencing health status Psychophysiological insomnia Persistent disorder of initiating or maintaining sleep Fatigue, unspecified type BMI 31.0-31.9,adult documented in this encounter Care Teams Optical Glass Wet Inspector Relationship Specialty Start Date End Date Antoinette Riley PA PCP - General Infectious Diseases 08/09/22 documented as of this encounter
--- OUTSIDE RECORDS SUMMARY | 2024-11-22 10:52 | XMS_ITS | Encounter Summary ---
Author Organization [facility] Medical Group Address [address] [address] Care Team Providers Care Refuse Laborer Name Role Phone Antoinetet Riley Primary Care Provider +1- [phone] Reason for Referral * Sleep Medicine (Routine) - Closed Specialty Diagnoses / Procedures Referred By Markell tong Referred To Contact Diagnoses Other sleep apnea Psychophysiological insomnia Fatigue, unspecified type Nonsmoker Family history of sleep apnea BMI 30.0-30.9,adult Procedures Portable/Home Sleep Study Criselda Colon MD Phone: tel: fax: [facility] [address] [place] [address] Phone: tel: fax: Referral ID Status Reason Start Date Expiration Date Visits Re quested Visits Authorized [id number] Closed 08/09/2022 09/08/2023 1 1 Encounter Details Date Type Department Care Team (Late st Contact Info) Description 08/09/2022 9:30 AM CDT Office Visit [facility] Medical Group Pulmonary [place] [address] [place] [address] [address] [place] [address] Criselda Colon MD [address] [facility] [address] [address] Other sleep apnea (Primary Dx); Psychophysiological insomnia; Fatigue, unspecified type; Nonsmoker; Family history of sleep apnea; BMI 30.0-30.9,adult Social History Tobacco Use Types Packs/Day Years [...] on file 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 Gender Identity Not on file Sexual Orientation Not on file documented as of this encounter Last Filed Vital Signs Vital Sign Reading Time Taken Comments Blood Pressure 116/72 08/09/2022 9:18 AM CDT Pulse 67 08/09/2022 9:18 AM CDT Temperature 36.7 ??C (98 ??F) 08/09/2022 9:18 AM CDT Respiratory Rate 18 08/09/2022 9:18 AM CDT Oxygen Saturation 99% 08/09/2022 9:18 AM CDT Inhaled Oxygen Concentration - - Weight 101.6 kg (224 lb) 08/09/2022 9:18 AM CDT Height - - Body Mass Index 30.38 07/05/2022 3:47 PM CDT documented in this encounter Progress Notes * Criselda Colon MD - 08/09/2022 9:30 AM CDT Subjective/Objective Patient ID: Dashawn Solitario is a 51 y.o. male. Chief Complaint No chief complaint on file. HPI The patient is pleasant 51-year-old male who came to us complaining of sleep disturbances. He relates I often wake up trying to catch my breath . Patient does report history of snoring, witnessed sleep apnea, waking up because snoring and excessive daytime fatigue. He denies any history of restless legs. Patient does report history of gasping for breath, waking up with dry mouth, insomnia, falling asleep at unwanted time, depending on alarm to wake up, sleep an hour past his normal wake-up time, night sweats, nightmares, morning headache, nausea, teeth grinding, anxiety, disturbing thoughts, restless and disturbed sleep. He does report history of sleepwalking, sleep talking. He denies any historyof palpitation, wake up violence, wake-up confusion, bedwetting, jaw pain or cataplexy. He retires to bed at 9:00 p.m. and wake up at 5:00 a.m., takes him 30 minutes to go sleep, wake up twice to go the bathroom, does take couple naps during the week for about 1 hour each. He denies any history of smoking. He does drink alcoholic beverages occasionally. He does drink caffeinated beverages and exercise on a regular basis. 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 His [place] sleeping score is 6/24. He lives in [place], [place]. He lives in [facility]. He does not have any pets. He is up-to-date with COVID-19 vaccine. He does have family history obstructive sleep apnea. No Known Allergies Review of Systems Constitutional: Positive for fatigue. Negative for appetite change, chills and fever. HENT: Negative for congestion, ear pain, mouth sores, tinnitus and voice change. Eyes: Negative for photophobia and pain. Respiratory: Negative for choking and stridor. Cardiovascular: Negative for chest pain and palpitations. Gastrointestinal: Negative for abdominal distention, abdominal pain and nausea. Endocrine: Negative for cold intolerance and polyphagia. Genitourinary: Negative for dysuria and hematuria. Musculoskeletal: Negative for gait problem and joint swelling. Skin: Negative for pallor and rash. Allergic/Immunologic: Negative for immunocompromised state. Neurological: Negative for seizures and facial asymmetry. Hematological: Negative for adenopathy. Does not bruise/bleed easily. Psychiatric/Behavioral: Negative for agitation and confusion. Vitals BP 116/72 Pulse 67 Temp 36.7 ??C (98 ??F) Resp 18 Wt 101.6 kg (224 lb) SpO2 99% BMI 30.38 kg/m?? Physical Exam Constitutional: General: He is not in acute distress. Appearance: He is well-developed. He is not diaphoretic. HENT: Head: Normocephalic and atraumatic. Neck: Thyroid: No thyromegaly. Cardiovascular: Rate and Rhythm: Normal rate and regular rhythm. Heart sounds: No murmur heard. No gallop. Pulmonary: Effort: Pulmonary effort is normal. No accessory muscle usage or respiratory distress. Breath sounds: No stridor. Chest: Chest wall: No mass, deformity or tenderness. Breasts: Right: No mass. Left: No mass. Abdominal: General: Bowel sounds are normal. There is no distension. Palpations: Abdomen is soft. Tenderness: There is no abdominal tenderness. Musculoskeletal: General: No tenderness or deformity. Normal range of motion. Cervical back: Normal range of motion and neck supple. Lymphadenopathy: Cervical: No cervical adenopathy. Skin: General: Skin is warm and dry. Capillary Refill: Capillary refill takes less than 2 seconds. Findings: No erythema or rash. Neurological: Mental Status: He is alert and oriented to person, place, and time. Cranial Nerves: No cranial nerve deficit. Coordination: Coordination normal. Psychiatric: Behavior: Behavior normal. Diagnoses and all orders for this visit: Other sleep apnea (Primary) - Portable/Home Sleep Study; Future Psychophysiological insomnia - Portable/Home Sleep Study; Future Fatigue, unspecified type - Portable/Home Sleep Study; Future Nonsmoker - Portable/Home Sleep Study; Future Family history of sleep apnea - Portable/Home Sleep Study; Future BMI 30.0-30.9,adult - Portable/Home Sleep Study; Future Results: Lab Results Component Value Date WBC 4.0 07/05/2022 HGB 13.1 07/05/2022 HCT 38.8 (L) 07/05/2022 MCV 81.9 07/05/2022 LABPLAT 257 07/05/2022 Plan: Patient will return back in 2 months for re-evaluation. Patient was advised about the pathophysiology of obstructive sleep apnea, complication of untreated obstructive sleep apnea, sleep hygiene, diet and exercise program for weight reduction. Patient will be sent for home sleep study for further evaluation. He is up-to-date with COVID-19 vaccine. Patient was encouraged to call us with any inquiry, concern for question about their condition, lab work, x-rays or CT scans at any time, please see further details for assessment and plan in HPI THIS NOTE WAS CREATED IN PART WITH THE ASSISTANCE OF [employer] VOICE RECOGNITION SOFTWARE. INTERNATIONAL NURSE VARIANCES MAY OCCUR. documented in this encounter Plan of Treatment Not on file documented as of this encounter Results * Portable/Home Sleep Study (09/04/2022 2:55 PM CDT) us Criselda Colon MD SLEEP CENTER ORDERABLES Fin al Result Performing Organization Address City/State/[facility] Co de Phone Number [facility] SLEEP MEDICINE [address] [place] [address] documented in this encounter Visit Diagnoses Diagnosis Other sleep apnea- Primary Psychophysiological insomnia Persistent disorder of initiating or maintaining sleep Fatigue, unspecified type Nonsmoker Other specified conditions influencing health status Family history of sleep apnea Family history of other condition BMI 30.0-30.9,adult documented in this encounter Care Teams Refuse Laborer Relationship Specialty Start Date End Date Antoinette Riley PA PCP - General Infectious Diseases 08/09/22 documented as of this encounter
--- OUTSIDE RECORDS SUMMARY | 2024-11-22 10:52 | XMS_ITS | Encounter Summary ---
Author Organization [facility] Address [address] [place] [address] Phone Care Team Providers Care Quantitative Analyst Name Role Phone Gucci Vilchis MD Primary Care Provider [phone] Encounter Details Date Type Department Care Team (Late st Contact Info) Description 02/01/[address] 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 Gender Identity Not on file Sexual Orientation Not on file documented as of this encounter Ordered Prescriptions Prescription Sig Dispense Quantity Refills Last Filled Start Date End Date dolutegravir (TIVICAY) 50 mg tabletIndications: HIV disease (CMS/HCC) (HCC) Take 1 tablet (50 mg total) by mouth daily 90 tablet 02/01/2022 04/24/2022 jazkkhiwr-ticv-gfa ri-tenof ala (Symtuza) [phone] mg tabletIndications: HIV disease (CMS/HCC) (HCC) Take 1 tablet by mouth daily 90 tablet 02/01/2022 04/24/2022 documented in this encounter Progress Notes * Flora Humphries - 02/01/2022 1:39 PM CDT Sent to new pharmacy. documented in this encounter Plan of Treatment Not on file documented as of this encounter Visit Diagnoses Diagnosis HIV disease (CMS/HCC) (HCC) Human immunodeficiency virus [HIV] disease documented in this encounter Discontinued Medications Medication Sig Discontinue Reason Start Date End Da te zgyhoshwe-nfvz-lrcuw-ten of ala (Symtuza) [phone] mg tabletIndications:HIV disease (CMS/HCC) (HCC) Take 1 tablet by mouth daily Reorder 12/27/2021 02/01/2022 dolutegravir (TIVICAY) 50 mg tabletIndications:HIV disease (CMS/HCC) (HCC) Take 1 tablet (50 mg total) by mouth daily Reorder 12/27/2021 02/01/2022 documented as of this encounter Care Teams Quantitative Analyst Relationship Specialty Start Date End Date Gucci Vilchis MD PCP - General 04/16/17 08/08/22 documented as of this encounter
--- OUTSIDE RECORDS SUMMARY | 2024-11-22 10:52 | XMS_ITS | Encounter Summary ---
Author Organization [facility] Address [address] [facility] [address] [place] [address] Care Team Providers Care Packing Room Inspector Name Role Phone Antoinette Riley Primary Care Provider [phone]- [phone] Reason for Referral * Sleep Medicine (Routine) - Closed Specialty Diagnoses / Procedures Referred By Markell tong Referred To Contact Diagnoses JUSTO (obstructive sleep apnea) Procedures PSG Criselda Colon MD Phone: tel: fax: [facility] [address] [place] [address] Phone: tel: fax: Referral ID Status Reason Start Date Expiration Date Visits Re quested Visits Authorized [id number] Closed 09/05/2022 10/05/2023 1 1 Encounter Details Date Type Department Care Team (Late st Contact Info) Description 09/05/2022 Orders Only [facility] Pulmonology [address] [facility] [address] [place] [id number] Criselda Colon MD [address] [facility] [address] [place] [address] JUSTO (obstructive sleep apnea) (Primary Dx) Social History Tobacco Use Types [...] on file 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 Gender Identity Not on file Sexual Orientation Not on file documented as of this encounter Plan of Treatment Not on file documented as of this encounter Results * PSG (10/11/2022 8:11 PM FOOT AND ANKLE SURGEON) us Criselda Colon MD SLEEP CENTER ORDERABLES Fin al Result Performing Organization Address City/State/[facility] Co de Phone Number [facility] SLEEP MEDICINE [address] [place] [address] documented in this encounter Visit Diagnoses Diagnosis JUSTO (obstructive sleep apnea)- Primary Obstructive sleep apnea (adult) (pediatric) documented in this encounter Care Teams Packing Room Inspector Relationship Specialty Start Date End Date Antoinette Riley PA PCP - General Infectious Diseases 08/09/22 documented as of this encounter
--- OUTSIDE RECORDS SUMMARY | 2024-11-22 10:52 | XMS_ITS | Encounter Summary ---
Author Organization [facility] Address [address] [facility] [address] [place] [address] Phone Care Team Providers Care Assistant Operator Name Role Phone Antoinette Riley Primary Care Provider +1- [phone] Reason for Visit * Reason Onset Date Comments Samples Provided 09/14/2023 Encounter Details Date Type Department Care Team (Late st Contact Info) Description 09/14/2023 Telephone [facility] Infectious Diseases [address] [place] [address] [address] [place] [address] 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 - 09/14/2023 10:32 AM CDT We provided samples to the patient because we are waiting for insurance approval/PA. Can you pleaseadd this as a sample order to the med list? Aniyah ([facility]: [id number]) Qty: 30 Lot: [id number] Exp: 11/2023 documented in this encounter Plan of Treatment Not on file documented as of this encounter Visit Diagnoses Not on filedocumented in this encounter Care Teams Assistant Operator Relationship Specialty Start Date End Date Antoinette Riley PA PCP - General Infectious Diseases 08/09/22 documented as of this encounter
--- OUTSIDE RECORDS SUMMARY | 2024-11-22 10:52 | XMS_ITS | Encounter Summary ---
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 (Symtuza and Tivicay) documented in this encounter Plan of Treatment Not on file documented as of this encounter Visit Diagnoses Not on filedocumented in this encounter Care Teams Counter Server Relationship Specialty Start Date End Date Antoinette Riley PA PCP - General Infectious Diseases 08/09/22 documented as of this encounter
--- OUTSIDE RECORDS SUMMARY | 2024-11-22 10:52 | XMS_ITS | Encounter Summary ---
Author Organization [facility] Healthcare Address [address] [place] [address] Care Team Providers Care Professor Of Languages Name Role Phone Antoinette Riley Primary Care Provider +1- [phone] Reason for Referral * Sleep Medicine (Routine) - Closed Specialty Diagnoses / Procedures Referred By Markell tong Referred To Contact Diagnoses JSUTO (obstructive sleep apnea) Procedures PSG Criselda Colon MD Phone: tel: fax: [facility] [address] [place] [address] Phone: tel: fax: Referral ID Status Reason Start Date Expiration Date Visits Re quested Visits Authorized [id number] Closed 09/05/2022 10/05/2023 1 1 OPERATIONS SUPERVISOR Reason for Visit * Sleep Medicine (Routine) - Closed Specialty Diagnoses / Procedures Referred By Markell tong Referred To Contact Diagnoses JUSTO (obstructive sleep apnea) Procedures PSG Criselda Colon MD Phone: tel: fax: [facility] [address] [place] [address] Phone: tel: fax: Referral ID Status Reason Start Date Expiration Date Visits Re quested Visits Authorized [id number] Closed 09/05/2022 10/05/2023 1 1 Encounter Details Date Type Department Care Team (Latest Contact Info) Description 10/11/2022 8:00 PM WIND OPERATIONS SUPERVISOR - 10/11/2022 11:59 PM WIND OPERATIONS SUPERVISOR Hospital Encounter [facility] Sleep Lab [address] [place] [address] JUSTO (obstructive sleep apnea) Discharge Disposition: Discharge to home or self [...] on file Legal Sex Male 7:55 PM WIND OPERATIONS SUPERVISOR Gender Identity Not on file Sexual Orientation Not on file documented as of this encounter Medications at Time of Discharge flunisolide (NASALIDE) 25 mcg (0.025 %) spray,non-aeroso lIndications:All ergy, subsequent encounter Administer 2 sprays into each nostril 2 (two) times a day 25 mL 3 10/05/2021 cetirizine (ZyrTEC) 10 mg tabletIndication s:HIV disease (CMS/HCC) ([facility]),Allergy, subsequent encounter Take 1 tablet (10 mg total) by mouth daily 30 tablet 5 10/04/2021 3 frtpzbqas-xjee-i mtri-tenof ala (Symtuza) [phone] mg tabletIndication s:HIV disease (CMS/HCC) ([facility]) Take 1 tablet by mouth daily 90 tablet 2 04/24/2022 3 dolutegravir (TIVICAY) 50 mg tabletIndication s:HIV disease (CMS/HCC) ([facility]) Take 1 tablet (50 mg total) by [...] Addendum Note - Criselda Colon MD - 10/11/2022 8:00 PM CSTEncounter addended by: Criselda Colon MD on: 10/18/2022 5:51 PM Actions taken: Charge Capture section accepted OPERATIONS SUPERVISOR documented in this encounter Plan of Treatment Not on file documented as of this encounter Procedures Procedure Name Priority Date/Time Associated Diagnosis Comments PSG (SIMPLE) Routine 10/11/2022 8:11 PM WIND OPERATIONS SUPERVISOR JUSTO (obstructive sleep apnea) documented in this encounter Results * PSG (10/11/2022 8:11 PM WIND OPERATIONS SUPERVISOR) Criselda Colon MD SLEEP CENTER ORDERABLES Fin al Result Performing Organization Address City/State/[facility] Co de Phone Number [facility] SLEEP [facility]ICINE [address] [place] [address] documented in this encounter Visit Diagnoses Diagnosis JUSTO (obstructive sleep apnea) Obstructive sleep apnea (adult) (pediatric) documented in this encounter Care Teams Professor Of Languages Relationship Specialty Start Date End Date Antoinette Riley PA PCP - General Infectious Diseases 08/09/22 documented as of this encounter
--- OUTSIDE RECORDS SUMMARY | 2024-11-22 10:52 | XMS_ITS | Encounter Summary ---
Author Organization [facility] Address [address] [place] [address] Phone Care Team Providers Care Environmental Quality Analyst Name Role Phone Antoinette Riley Primary Care Provider +1- [phone] Encounter Details Date Type Department Care Team (Late st Contact Info) Description 01/12/2023 Orders Only [facility] Infectious Diseases [address] [facility] [address] [place] [address] Antoinette Riley PA [address] [facility] [address] [place], [place] [id number] On highly active antiretroviral therapy (HAART) (Primary Dx) Social History Tobacco Use Types [...] on file Legal 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
--- OUTSIDE RECORDS SUMMARY | 2024-11-22 10:52 | XMS_ITS | Encounter Summary ---
Author Organization [facility] Healthcare Address [address] [place] [address] Care Team Providers Care Checkering Machine Adjuster Name Role Phone Antoinette Riley Primary Care Provider +1- [phone] Reason for Visit * Reason Onset Date Comments Home sleep study results 09/06/2022 Encounter Details Date Type Department Care Team (Late st Contact Info) Description 09/06/2022 Telephone [facility] Sleep Lab [address] [place], [place] [id number] Criselda Colon MD [address] [facility] [address] [address] Home sleep study results Social History Tobacco Use Types Packs/Day Years [...] on file 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 AHI 40.[address] Colon recommends cpap Titration study. Called insurance, they do not require a prior authorization. Left message on voicemail to return our call. documented in this encounter Plan of Treatment Not on file documented as of this encounter Visit Diagnoses Not on filedocumented in this encounter Care Teams Checkering Machine Adjuster Relationship Specialty Start Date End Date Antoinette Riley PA PCP - General Infectious Diseases 08/09/22 documented as of this encounter
--- OUTSIDE RECORDS SUMMARY | 2024-11-22 10:52 | XMS_ITS | Encounter Summary ---
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 RT NCT INSTRUCTOR IN ECONOMICS documented in this encounter Plan of Treatment Not on file documented as of this encounter Visit Diagnoses Not on filedocumented in this encounter Care Teams Internal Control Analyst Relationship Specialty Start Date End Date Antoinette Riley PA PCP - General Infectious Diseases 08/09/22 documented as of this encounter
--- OUTSIDE RECORDS SUMMARY | 2024-11-22 10:52 | XMS_ITS | Encounter Summary ---
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/HCC) ([facility]) Take 1 tablet (50 mg total) by [...] on filedocumented in this encounter Care Teams Cattle Farmer Relationship Specialty Start Date End Date Gucci Vilchis MD PCP - General 04/16/17 08/08/22 documented as of this encounter
--- OUTSIDE RECORDS SUMMARY | 2024-11-22 10:53 | XMS_ITS | Encounter Summary ---
Author Organization [facility] Healthcare Address [address] [place] [address] Care Team Providers Care Silo Worker Name Role Phone Gucci Vilchis MD Primary Care Provider [phone] [phone] Encounter Details Date Type Department Care Team (Late st Contact Info) Description 01/24/2022 1:45 PM CDT - 01/24/2022 2:30 PM CDT Surgery [facility] [place] [address] [facility][1] [address] [place] [address] Richard Juarez MD [address] [facility] [address] [place] [address] COLONOSCOPY SG/OA Surgery Details Date/Time Status Location OR Service Patient Class Case Class Case Type Trauma Case? 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 Gender Identity Not on file Sexual Orientation Not on file documented as of this encounter Last Filed Vital Signs Vital Sign Reading Time Taken Comments Blood Pressure 129/83 01/24/2022 1:51 PM CDT Pulse 75 01/24/2022 1:51 PM CDT Temperature 36.4 ??C (97.5 ??F) 01/24/2022 1:51 PM CD T Respiratory Rate 16 01/24/2022 1:51 PM CDT Oxygen Saturation 98% 01/24/2022 1:51 PM CDT Inhaled Oxygen Concentration - - Weight 99.8 kg (220 lb) 01/24/2022 1:51 PM CDT Height 182.9 cm (6') 01/24/2022 1:51 PM CDT Body Mass Index 29.84 01/24/2022 1:51 PM CDT documented in this encounter Medications at Time of Discharge flunisolide (NASALIDE) 25 mcg (0.025 %) spray,non-aeroso lIndications:All ergy, subsequent encounter Administer 2 sprays into each nostril 2 (two) times a day 25 mL 3 10/05/2021 cetirizine (ZyrTEC) 10 mg tabletIndication s:HIV disease (CMS/HCC) (HCC),Allergy, subsequent encounter Take 1 tablet (10 mg total) by mouth daily 30 tablet 5 10/04/2021 3 wwmmrowui-xbhj-b mtri-tenof ala (Symtuza) [phone] mg tabletIndication s:HIV disease (CMS/HCC) (HCC) Take 1 tablet by mouth daily 90 tablet 2 12/27/2021 2 dolutegravir (TIVICAY) 50 mg tabletIndication s:HIV disease (CMS/HCC) ([facility]) Take 1 tablet (50 mg total) by mouth daily 90 tablet 2 12/27/2021 2 polyethylene glycol (GoLYTELY) 236-22.74-6.74 -5.86 gram solutionIndicati ons:colonoscopy Drink Golytely/Nulytel y 1/2 jug at 6:00 pm on 01/23/2022. Drink Golytely/Nulytel y 1/2 jug at 4 hours before leaving home on 01/24/2022. 4000 mL 12/07/2021 3 documented as of this encounter Discharge Disposition Disposition Code Departure Means Destination Discharge to home or self care documented in this encounter H&P Notes * Richard Juarez MD - 01/24/2022 2:26 PM CDT Pre Endoscopy History and Physical Dashawn Solitario is a 51 y.o. male who is here for Procedure(s): COLONOSCOPY SG/OA The indication(s) for the procedure(s): 51 AAM screening colonoscopy Past Medical History: Diagnosis Date ??? Cellulitis of neck Cellulitis of neck - (Added by TW Conv) ??? HIV (human immunodeficiency virus infection) (HCC) ??? Human immunodeficiency virus (HIV) disease (CMS/HCC) (HCC) HIV Infection - (Added by TW Conv) ??? Personal history of other infectious and parasitic diseases History of syphilis - (Added by TW Conv) Past Surgical History: Procedure Laterality Date ??? [place] REMOVAL ANAL FISTULA,SUBCUTANEOUS Anal Fistulotomy (Subcutaneous) - 1998 (Added by TW Conv) Social History Tobacco Use ??? Smoking status: Never Smoker ??? Smokeless tobacco: Never Used Substance Use Topics ??? Alcohol use: Not on file Family History Problem Relation Age of Onset ??? Prostate cancer Father Prostate cancer - age 66 (Added by TW Conv) No Known Allergies Prior to Admission medications Medication Sig Start Date End Date Taking? Authorizing Provider cetirizine (ZyrTEC) 10 mg tablet Take 1 tablet (10 mg total) by mouth daily 10/04/21 Yes Antoinette Riley PA cjkdacpxr-ocwm-nxmer-tenof ala (Symtuza) [phone] mg tablet Take 1 tablet by mouth daily 12/27/21 Yes Antoinette Riley PA dolutegravir (TIVICAY) 50 mg tablet Take 1 tablet (50 mg total) by mouth daily 12/27/21 Yes Antoinette Riley PA flunisolide (NASALIDE) 25 mcg (0.025 %) spray,non-aerosol Administer 2 sprays into each nostril 2 (two) times a day 10/05/21 Yes Antoinette Riley PA polyethylene glycol (GoLYTELY) 236-22.74-6.74 -5.86 gram solution Drink Golytely/Nulytely 1/2 jug at 6:00 pm on 01/23/2022. Drink Golytely/Nulytely 1/2 jug at 4 hours before leaving home on 01/24/2022.12/07/21 Yes Richard Juarez MD Review of Systems A pertinent, focused review of systems was completed and negative, except as noted above. OBJECTIVE: Vitals: Vitals: 01/24/22 1351 BP: 129/83 Pulse: 75 Resp: 16 Temp: 36.4 ??C (97.5 ??F) TempSrc: Tympanic SpO2: 98% Weight: 99.8 kg (220 lb) Height: 182.9 cm (6') Physical Exam: Airway: No significant abnormality. Cardiac: No significant abnormality. Pulmonary: No significant abnormality. Neurological: No significant abnormality. Gastrointestinal: No significant abnormality. ASA Score: per Anesthesia Sedation/Anesthesia Plan: per Anesthesia The risks and complications of the procedure have been explained to the patient. Informed consent was signed. Impression and plan: Will proceed with the planned procedure for the reasons stated above. * Ida Caldwell MD - 01/24/2022 2:16 PM CDT Pre Endoscopy History and Physical Dashawn Solitario is a 51 y.o. male who is here for Procedure(s): COLONOSCOPY SG/OA The indication(s) for the procedure(s):Colon cancer screening. Past Medical History: Diagnosis Date ??? Cellulitis of neck Cellulitis of neck - (Added by TW Conv) ??? HIV (human immunodeficiency virus infection) (HCC) ??? Human immunodeficiency virus (HIV) disease (CMS/HCC) (HCC) HIV Infection - (Added by TW Conv) ??? Personal history of other infectious and parasitic diseases History of syphilis - (Added by TW Conv) Past Surgical History: Procedure Laterality Date ??? VT REMOVAL ANAL FISTULA,SUBCUTANEOUS Anal Fistulotomy (Subcutaneous) - 1998 (Added by TW Conv) Social History Tobacco Use ??? Smoking status: Never Smoker ??? Smokeless tobacco: Never Used Substance Use Topics ??? Alcohol use: Not on file Family History Problem Relation Age of Onset ??? Prostate cancer Father Prostate cancer - age 66 (Added by TW Conv) No Known Allergies Prior to Admission medications Medication Sig Start Date End Date Taking? Authorizing Provider cetirizine (ZyrTEC) 10 mg tablet Take 1 tablet (10 mg total) by mouth daily 10/04/21 Yes Antoinette Riley PA bqylfnmno-glfa-tgolh-tenof ala (Symtuza) [phone] mg tablet Take 1 tablet by mouth daily 12/27/21 Yes Antoinette Riley PA dolutegravir (TIVICAY) 50 mg tablet Take 1 tablet (50 mg total) by mouth daily 12/27/21 Yes Antoinette Riley PA flunisolide (NASALIDE) 25 mcg (0.025 %) spray,non-aerosol Administer 2 sprays into each nostril 2 (two) times a day 10/05/21 Yes Antoinette Riley PA polyethylene glycol (GoLYTELY) 236-22.74-6.74 -5.86 gram solution Drink Golytely/Nulytely 1/2 jug at 6:00 pm on 01/23/2022. Drink Golytely/Nulytely 1/2 jug at 4 hours before leaving home on 01/24/2022.12/07/21 Yes Richard Juarez MD Review of Systems A pertinent, focused review of systems was completed and negative, except as noted above. OBJECTIVE: Vitals: Vitals: 01/24/22 1351 BP: 129/83 Pulse: 75 Resp: 16 Temp: 36.4 ??C (97.5 ??F) TempSrc: Tympanic SpO2: 98% Weight: 99.8 kg (220 lb) Height: 182.9 cm (6') Physical Exam: Airway: No significant abnormality. Cardiac: No significant abnormality. Pulmonary: No significant abnormality. Neurological: No significant abnormality. Gastrointestinal: No significant abnormality. ASA Score: per Anesthesia Sedation/Anesthesia Plan: per Anesthesia The risks and complications of the procedure have been explained to the patient. Informed consent was signed. Impression and plan: Will proceed with the planned procedure for the reasons stated above. Cosigned by Richard Juarez MD at 01/24/2022 2:26 PM CDT Associated attestation - Richard Juarez MD - 01/24/2022 2:26 PM CDT I was present for the entire procedure. documented in this encounter Procedure Notes * Richard Juarez MD - 01/24/2022 2:27 PM CDTAssociated Order(s): COLONOSCOPY [facility] Patient Name: Dashawn Solitario Procedure Date: 01/24/2022 2:27 PM Date of : 1970 Admit Type: Outpatient Age: 51 Gender: Male Attending MD: Richard Juarez M.D. Room: [facility] ENDOSCOPY ROOM 3 Note Status: Finalized Procedure: Colonoscopy Indications: Screening for colorectal malignant neoplasm, This is the patient's first colonoscopy Referring MD: Antoinette Riley PA-C Providers: Richard Juarez M.D., Ida Caldwell M.D. Medicines: Monitored Anesthesia Care Complications: Laryngospasm, treated with intubation Estimated Blood Loss: Estimated blood loss: none. Procedure: Pre-Anesthesia Assessment: - Immediately prior to administration of medications, the patient was re-assessed for adequacy to receive sedatives. - The risks and benefits of the procedure and the sedation options and risks were discussed with the patient. All questions were answered and informed consent was obtained. The benefits, risks and alternatives of the procedure and sedation were discussed and informed consent was obtained. All questions were answered. Please refer to the signed informed consent document in the medical record. The scope was passed under direct vision. The [id number] endoscope was introduced through the anus and advanced to the cecum, identified by appendiceal orifice and ileocecal valve. The colonoscopy was performed without difficulty. The patient tolerated the procedure well. The quality of the bowel preparation was good. The quality of the bowel preparation was evaluated using the BBPS ([place] Bowel Preparation Scale) with scores of: Right Colon = 2 (minor amount of residual staining, small fragments of stool and/or opaque liquid, but mucosa seen well), Transverse Colon = 2 (minor amount of residual staining, small fragments of stool and/or opaque liquid, but mucosa seen well) and Left Colon = 2 (minor amount of residual staining, small fragments of stool and/or opaque liquid, but mucosa seen well). The total BBPS score equals 6. The quality of the bowel preparation was good. The bowel preparation used was polyethylene glycol (PEG) via split dose instruction. Bowel prep was administered using a split [...] and participated during the entire procedure, including non-neely portions. Electronically signed by Richard Juarez MD Richard Juarez M.D. 01/24/2022 3:19:43 PM . Number of Addenda: 0 Note Initiated On: 01/24/2022 2:27 PM Recognized by the [employer] for promoting quality in endoscopy documented in this encounter Miscellaneous Notes * Perioperative Nursing Note - Jt Adair, HUNTER - 01/24/2022 3:53 PM CDT Correction for previous note:Patient was given albuterol trx and Lasix was held and will be given if necessary in the post phase for the Patient. HUNTER Pedraza * Perioperative Nursing Note - Jt Adair, HUNTER - 01/24/2022 2:55 PM CDT During the first two minutes of the patients screening colonoscopy. The patient began experiencing laryngo spasms and began to destat. hr payroll coordinator called for Dr. Valencia and began positve pressure and intubation. The pt saturation improved and received glyco to improve his drying up the secretion the pt was experiencing. Dr. Gambino ordered 20 mg of lasix. Pt saturation level improved and became stable to continue procedure. Dr Valencia stated the pt was experiencing negative pressure pulmonary edema. Pt has a chest x-ray ordered per Dr. Valencia in post-op. documented in this encounter Plan of Treatment Not on file documented as of this encounter Procedures Procedure Name Priority Date/Time Associated Diagnosis Comments XR CHEST 1 VIEW ED Urgent/IP Urgent 01/24/2022 5:00 PM CDT COLONOSCOPY 01/24/2022 2:27 PM CDT COLONOSCOPY 01/24/2022 2:22 PM CDT Colon cancer screening documented in this encounter Results * X-ray chest 1 view (01/24/2022 5:00 PM CDT) Anatomical Region Laterality Modality Body, Chest N/A Computed Radiogr aphy 01/24/2022 5:09 PM CDT Impressions 01/24/2022 5:09 PM CDT Heart size is normal. Lungs are underexpanded with mild atelectasis in the bases. No pulmonary edema, focal consolidation, pleural effusion, or pneumothorax. Electronically signed by: Domingo Black M.D. Narrative 01/24/2022 5:09 PM CDT EXAMINATION: 1 view chest radiograph COMPARISON: None available Procedure Note Domingo Black MD - 01/24/2022 EXAMINATION: 1 view chest radiograph COMPARISON: None available IMPRESSION: Heart size is normal. Lungs are underexpanded with mild atelectasis in the bases. No pulmonary edema, focal consolidation, pleural effusion, or pneumothorax. Electronically signed by: Domingo Black M.D. Tracy Valencia MD IMG XR PROCEDURES Final Re sult * COLONOSCOPY (01/24/2022 2:27 PM CDT) Anatomical Region Laterality Modality Other Narrative Procedure Note Richard Juarez MD - 01/24/2022 2:27 PM CDT GI [facility] Patient Name: Dashawn Solitario Procedure Date: 01/24/2022 2:27 PM Date of : 1970 Admit Type: Outpatient Age: 51 Gender: Male Attending MD: Richard Juarez M.D. Room: [facility] ENDOSCOPY ROOM 3 Note Status: Finalized Procedure: [...] scope was passed under direct vision.The CF [id number] endoscope was introduced through the anus and advanced to the cecum, identified by appendiceal orifice and ileocecal valve. The colonoscopy was performed without difficulty. The patient tolerated the procedure well. The qualityof the bowel preparation was good. The quality of the bowel preparation was evaluated using the BBPS([place] Bowel Preparation Scale) with scores of: RightColon [...] On: 01/24/2022 2:27 PM Recognized by the [employer] for promoting quality in endoscopy us Richard Juarez MD ENDOSCOPY PROCEDURES Fin al Result documented in this encounter Visit Diagnoses Diagnosis Colon cancer screening- Primary Special screening for malignant neoplasms, colon Colon cancer screening Special screening for malignant neoplasms, colon documented in this encounter Admitting Diagnoses Diagnosis Colon cancer screening Special screening for malignant neoplasms, colon documented in this encounter Administered Medications Inactive Administered Medications - up to 3 most recent administrations Medication Order MAR Action Action Date Dose Rate Site acetaminophen (TYLENOL) tablet 1,000 mg 1,000 mg, oral, Once, On Sun01/24/22 at 1645, For 1 dose Given 01/24/2022 4:16 PM CDT 1,000 mg ondansetron (ZOFRAN) injection 4 mg 4 mg, intravenous, Administer over 2 Minutes, Every 6 hours PRN, nausea, vomiting, Starting on Sun01/24/22 at 1341, Pre-Procedure (GI) sodium chloride 0.9% flush 0.5-20 mL 0.5-20 mL, intra-catheter, As needed, line care, Starting on Sun01/24/22 at 1341, Pre-Procedure (GI), Flush volume based on line type and size. Flush before and after each use. , Indications: FlushingIndications:Flushing sodium chloride 0.9% infusion 30 mL/hr, intravenous, Continuous, Starting on Sun01/24/22 at 1415 Restarted 01/24/2022 3:42 PM CDT Rate/Dose Verify 01/24/2022 2:21 PM CDT 30 mL/h r New Bag 01/24/2022 1:58 PM CDT 30 mL/hr 30 mL/hr documented in this encounter Active and Recently Administered Medications Due to Daylight Saving Time, this section may contain times in both SKIN CARE THERAPIST and CDT. Scheduled Medication Order 01/22/2022 01/23/2022 01/24/2022 acetaminophen (TYLENOL) tablet 1,000 mg (COMPLETED) 1,000 mg, oral, Once, On Sun01/24/22 at 1645, For 1 dose 1616 (Given - Provid er: Lara Jeffrey RN) Continuous Medication Order 01/22/2022 01/23/2022 01/24/2022 sodium chloride 0.9% infusion 30 mL/hr, intravenous, Continuous, Starting on Sun01/24/22 at 1415 1358 (New Bag - Prov ider: Lara Jeffrey RN)1421 (Rate/Dose Verify - Provider: Francy Coon CRNA)1541 (Paused - Provider: Francy Coon CRNA - Comment: Switch to gravity)1542 (Restarted - Provider: Francy Coon CRNA) PRN Medication Order 01/22/2022 01/23/2022 01/24/2022 ondansetron (ZOFRAN) injection 4 mg 4 mg, intravenous, Administer over 2 Minutes, Every 6 hours PRN, nausea, vomiting, Starting on Sun01/24/22 at 1341, Pre-Procedure (GI) sodium chloride 0.9% flush 0.5-20 mL 0.5-20 mL, intra-catheter, As needed, line care, Starting on e 01/24/22 at 1341, Pre-Procedure (GI), Flush volume based on line type and size. Flush before and after each use. , Indications: Flushing documented in this encounter Orders Medications Ordered That Jaycob ht Not Have Been Administered Count Last Ordered Date First Ordered Date ondansetron (ZOFRAN) injection 4 mg 1 01/24 sodium chloride 0.9% flush 0.5-20 mL 1 01/10 documented in this encounter Care Teams Silo Worker Relationship Specialty Start Date End Date Gucci Vilchis MD PCP - General 04/16/17 08/08/22 documented as of this encounter
--- OUTSIDE RECORDS SUMMARY | 2024-11-22 10:53 | XMS_ITS | Encounter Summary ---
Author Organization [facility] Healthcare Address [address] [place] [address] Care Team Providers Care Clinic Receptionist Name Role Phone Gucci Vilchis MD Primary Care Provider [phone] [phone] Encounter Details Date Type Department Care Team (Latest Contact Info) Description 01/24/2022 12:30 PM CDT - 01/24/2022 5:03 PM CDT Hospital Encounter [facility] Digestive Disease [place] [address] [facility] [address] [place] [address] Richard Juarez MD [address] [facility] [address] [place] [address] Discharge Disposition: Discharge to home or self [...] on file 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 Gender Identity Not on file Sexual Orientation Not on file documented as of this encounter Last Filed Vital Signs Vital Sign Reading Time Taken Comments Blood Pressure 131/86 01/24/2022 4:50 PM CDT Pulse 86 01/24/2022 4:50 PM CDT Temperature 36.4 ??C (97.5 ??F) 01/24/2022 1:51 PM CD T Respiratory Rate 13 01/24/2022 4:50 PM CDT Oxygen Saturation 99% 01/24/2022 4:50 PM CDT Inhaled Oxygen Concentration - - Weight 99.8 kg (220 lb) 01/24/2022 1:51 PM CDT Height 182.9 cm (6') 01/24/2022 1:51 PM CDT Body Mass Index 29.84 01/24/2022 1:51 PM CDT documented in this encounter Discharge Diagnoses Diagnosis Encounter for screening for malignant neoplasm of colon - ENCOUNTER FOR SCREENING FOR MALIGNANT NEOPLASM OF COLON Other hemorrhoids - OTHER HEMORRHOIDS Laryngeal spasm - LARYNGEAL SPASM documented in this encounter Medications at Time of Discharge flunisolide (NASALIDE) 25 mcg (0.025 %) spray,non-aeroso lIndications:All ergy, subsequent encounter Administer 2 sprays into each nostril 2 (two) times a day 25 mL 3 10/05/2021 cetirizine (ZyrTEC) 10 mg tabletIndication s:HIV disease (CMS/HCC) (HCC),Allergy, subsequent encounter Take 1 tablet (10 mg total) by mouth daily 30 tablet 5 10/04/2021 3 uevbgqszz-txhr-r mtri-tenof ala (Symtuza) [phone] mg tabletIndication s:HIV disease (CMS/HCC) (HCC) Take [...] Past Surgical History: Procedure Laterality Date ??? [place] REMOVAL ANAL FISTULA,SUBCUTANEOUS Anal Fistulotomy (Subcutaneous) - [...] mouth daily 10/04/21 Yes Antoinette Riley PA pkvcnzeom-hkeg-bavas-tenof ala (Symtuza) [phone] mg tablet Take 1 tablet by mouth [...] at 6:00 pm on 01/23/2022. Drink Golytely/Nulytely 11/13 jug at 4 hours before leaving home [...] Past Surgical History: Procedure Laterality Date ??? MT REMOVAL ANAL FISTULA,SUBCUTANEOUS Anal Fistulotomy (Subcutaneous) - [...] mouth daily 10/04/21 Yes Antoinette Riley PA prjkopata-qoap-mdhbz-tenof ala (Symtuza) [phone] mg tablet Take 1 tablet by mouth [...] Male Attending MD: Richard Juarez M.D. Room: [facility] ENDOSCOPY ROOM 3 Note Status: Finalized Procedure: [...] scope was passed under direct vision. The CF [id number] endoscope was introduced through the anus and advanced to the cecum, identified by appendiceal orifice and ileocecal valve. The colonoscopy was performed without difficulty. The patient tolerated the procedure well. The quality of the bowel preparation was good. The quality of the bowel preparation was evaluated using the BBPS ([place] Bowel Preparation Scale) with scores of: Right [...] On: 01/24/2022 2:27 PM Recognized by the [employer] for promoting quality in endoscopy documented in this encounter Miscellaneous Notes * Perioperative Nursing Note - Jt Adair RN - 01/24/2022 3:53 PM CDT Correction for previous note:Patient was given albuterol trx and Lasix was held and will be given if necessary in the post phase for the Patient. HUNTER Pedraza * Perioperative Nursing Note - Jt Adair RN - 01/24/2022 2:55 PM CDT During the first two minutes of the patients screening colonoscopy. The patient began experiencing laryngo spasms and began to destat. supervising film or videotape editor called for Dr. Valencia and began positve [...] pneumothorax. Electronically signed by: Domingo Black M.D. us Tracy Valencia MD IMG XR PROCEDURES Final Re sult * COLONOSCOPY (01/24/2022 2:27 PM CDT) Anatomical Region Laterality Modality Other Narrative Procedure Note Richard Juarez MD - 01/24/2022 2:27 PM CDT [facility] Patient Name: Dashawn Solitario Procedure Date: 01/24/2022 2:27 PM Date of : 1970 Admit Type: Outpatient Age: 51 Gender: Male Attending MD: Richard Juarez M.D. Room: [facility] ENDOSCOPY ROOM 3 Note Status: Finalized Procedure: [...] scope was passed under direct vision.The CF [id number] endoscope was introduced through the anus and advanced to the cecum, identified by appendiceal orifice and ileocecal valve. The colonoscopy was performed without difficulty. The patient tolerated the procedure well. The qualityof the bowel preparation was good. The quality of the bowel preparation was evaluated using the BBPS([place] Bowel Preparation Scale) with scores of: RightColon [...] On: 01/24/2022 2:27 PM Recognized by the [employer] for promoting quality in endoscopy Richard Juarez MD ENDOSCOPY PROCEDURES Fin al Result documented in this encounter Visit Diagnoses Diagnosis Colon cancer screening- Primary Special screening for malignant neoplasms, colon documented [...] this section may contain times in both PYRIDINE OPERATOR and CDT. Scheduled Medication Order 01/22/2022 01/23/2022 [...] 01/10 documented in this encounter Care Teams Clinic Receptionist Relationship Specialty Start Date End Date Gucci Vilchis MD PCP - General 04/16/17 08/08/22 documented as of this encounter
--- OUTSIDE RECORDS SUMMARY | 2024-11-22 10:53 | XMS_ITS | Encounter Summary ---
Author Organization [facility] Healthcare Address [address] [place] [address] Care Team Providers Care Graphic Editor Name Role Phone Gucci Vilchis MD Primary Care Provider [phone] Encounter Details Date Type Department Care Team (Late st Contact Info) Description 01/24/2022 2:21 PM CDT Anesthesia Event [facility] Digestive [facility] [address] [place] [address] Tracy Valencia MD [address] [facility] [address] [facility] [id number] [place] [address] Francy Coon CRNA [address] [facility] [id number] [place] [address] Anesthesia Record Procedure Summary Procedure Name Responsible Anesthesiologist Anesthesia Start Time Anesthesia Stop Time COLONOSCOPY SG/OA (Colon) Tracy Valencia MD 01/24/22 1421 01/24/22 1550 Events Date Time Event Comment 01/24/2022 1405 1421 An Start 1421 An Start Data 1422 In Room 1424 Start Supplemental O2 1425 Patient Positioned Laterally 1425 An Induction The patient was reevaluated immediately before moderate or deep sedation use and before anesthesia induction. 1428 Anesthesia Ready 1432 Quick Note Shortly after p rocedure start, patient began coughing and laryngospasmed. Dr. [...] wheezy and coarse. ETT suctioned for moderate amount of clear and pink sputum. Albuterol given as well as PEEP from ventilator. Saturations ananda to 100% within a few minutes of intubation. Will monitor for NPPE. 1437 An Intubation 1503 Proc Start 1514 Proc Fin 1534 An Extubation 1541 Out of Room 1544 an stop data 1550 An Stop 1714 Release from care Meds Name Total lidocaine (cardiac) syringe 2 % 100 mg propofol 200 mg propofol 973.05 mg succinylcholine 100 mg dexamethasone 4 mg/ml 8 mg albuterol inhaler 12 puff sodium chloride 0.9% infusion 500 mL * Agents Name O2% N2O O2 * Blood No blood administrations on file. Lines, Drains, and Airways Type Details Placement Removal Peripheral IV Placement Date: 01/10 04/02; Placement Time: 1358; Catheter Size: 20 G; Orientation: Posterior, Right; Location: Hand; Site Prep: Chlorhexidine; Technique: Anatomical landmarks; Inserted by: todd jeffrey; Insertion Attempts: 1; Patient Tolerance: Tolerated well; Removal Date: 01/24/22; Removal Time: 170101/24/22 1358 by Lara Jeffrey RN 01/24/221701 by Porfirio Roth, HUNTER ETT Placement Date: 01/10 04/02; Placement Time: 143; Mask Ventilation: 3; Technique: Video laryngoscopy; Type: ETT - single; Single Lumen Tube Size: 7 mm; Cuffed: Yes; Blade Size: 4; Location: Oral; Grade View: Grade IIb; Insertion Attempts: 2; Placement Verification: Auscultation, Capnometry, Single lung ventilation; Airway Comment: 1st attempt grade 3 MAC 4. 2nd attempt grade 2b with cmac 4. ETT placed over bougie.; Removal Date: 01/24/22; Removal Time: 170101/24/22 1437 by Francy Coon CRNA 01/24/221701 by Porfirio Roth, HUNTER ETT Placement Date: 01/10 04/02; Placement Time: 1553 (created via procedure documentation); Mask Ventilation: 3; Technique: Video laryngoscopy; Type: ETT - single; Single Lumen Tube Size: 7 mm; Cuffed: Yes; Location: Oral; Grade View: Grade IIb; Insertion Attempts: 2; Placement Verification: Auscultation, Capnometry, Symmetrical chest wall movement; Airway Comment: 1st attempt grade 3 with MAC 4. 2nd attempt grade 2b with CMAC videoscope 4. 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 Gender Identity Not on file Sexual Orientation Not on file documented as of this encounter OR Notes * Anesthesia Postprocedure Evaluation - Tracy Valencia MD - 01/24/2022 5:10 PM CDT Patient: Dashawn Solitario Procedure Summary Date: 01/24/22 Room / Location: [facility]OSCOPY ROOM 3 / [facility] Anesthesia Start: 1421 Anesthesia Stop: 1550 Procedure: COLONOSCOPY SG/OA (N/A Colon) Diagnosis: Colon cancer screening (Colon cancer screening [Z12.11]) Providers: Richard Juarez MD Responsible Provider: Tracy Valencia MD Anesthesia Type: MAC ASA Status: 2 Anesthesia Type: MAC Last vitals BP 131/86 Pulse 86 Temp 36.4 ??C (97.5 ??F) (Tympanic) Resp 13 SpO2 99% Anesthesia Post Evaluation Patient location during evaluation: PACU Patient participation: complete - patient participated Level of consciousness: fully awake Pain score: 0 Pain management: adequate Airway patency: adequate Evidence of recall: no Cardiovascular status: acceptable Respiratory status: acceptable Hydration status: acceptable Pt is: normothermic Nausea/Vomiting status: none Comments: Respiration unlabored. CTA bilateral. Patient feels well, is in good spirits and is eagerto go home. CXR done. VSS. Discussed laryngospasm/ potential for pulmonary edema and moderately difficult airway (C-Mac with bougie) with patient and . Recommend that he communicate difficulty tofuture anesthesiologists and they expressed understanding. Intubation note in Epic and difficult intubation tab selected. No complications documented. * Anesthesia Procedure Notes - Francy Coon CRNA - 01/24/2022 3:51 PM CDTAssociated Order(s): Airway Airway Patient location: OR Urgency: elective Indications for airway management: anesthesia Difficult airway: yes Maneuvers that helped ventilation: 2 person bag and mask and oral airway Maneuvers that helped intubation: bougie, cricoid pressure and different blade/size Factors contributing to intubation difficulty: limited mandibular protusion Staff: Placed by: MANAGER PRODUCT MARKETING: Francy Coon CRNA Emergent airway documentation: Risks and benefits discussed: yes Consent obtained: yes Consent given by: patient Airway prep: Preoxygenated: yes Patient position: sniffing Mask difficulty assessment: 3 - difficult mask (inadequate, unstable or two providers) Sedation level during airway: GA Final airway details: Final airway type: endotracheal airway Tube type: ETT ETT size: 7.0 mm Cuffed: yes Technique used for successful ETT placement: video laryngoscopy Devices/Methods used in placement: intubating stylet and flexible tip bougie Insertion site: oral Video blade type: CMAC Blade size: 4 Cormack-Lehane (direct): grade III - view of epiglottis only Cormack-Lehane (video): grade IIb - view of arytenoids or posterior of glottis only Cuff volume: 10 mL Cuff inflated with: air ETT to lips: 23 cm Placement verified by: auscultation and CO2 detection Airway secured with: silk tape Number of attempts: 2 Ventilation between attempts: BVM Additional comments: Patient emergently intubated due to laryngospasm. 1st attempt MAC3. Grade 3 view. 2nd attempt [id number] view with CMAC 4 video laryngoscope. ETT passed through cords with bougie atraumatically. BVM with OA between attempts. 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 * Anesthesia Preprocedure Evaluation - Tracy Valencia MD - 01/24/2022 1:59 PM CDT Images from the original note were not included. Anesthesia Evaluation Dashawn Solitario is a 51 y.o. male Procedure(s): COLONOSCOPY SG/OA Pre-Op Diagnosis Codes: * Colon cancer screening [Z12.11] Patient Active Problem List Diagnosis ??? Encounter for long-term (current) use of high-risk medication ??? HIV disease (CMS/HCC) (HCC) ??? On highly active antiretroviral therapy (HAART) ??? Absolute anemia ??? Routine screening for STI (sexually transmitted infection) ??? Polyuria ??? Allergies ??? Colon cancer screening Past Medical History: Diagnosis Date ??? Cellulitis of neck Cellulitis of neck - (Added by TW Conv) ??? HIV (human immunodeficiency virus infection) (HCC) ??? Human immunodeficiency virus (HIV) disease (CMS/HCC) (HCC) HIV Infection - (Added by TW Conv) ??? Personal history of other infectious and parasitic diseases History of syphilis - (Added by TW Conv) Past Surgical History: Procedure Laterality Date ??? NM REMOVAL ANAL FISTULA,SUBCUTANEOUS Anal Fistulotomy (Subcutaneous) - 1998 (Added by TW Conv) No Known Allergies Taking? Last Dose Start Date End Date Provider cetirizine (ZyrTEC) 10 mg tablet Past Week 10/04/21 -- Antoinette Riley PA Take 1 tablet (10 mg total) by mouth daily fhuxkjcxn-hlmg-dlyur-tenof ala (Symtuza) [id number] mg tablet Past Week 12/27/21 -- Antoinette Riley PA Take 1 tablet by mouth daily dolutegravir (TIVICAY) 50 mg tablet Past Week 12/27/21 -- Antoinette Riley PA Take 1 tablet (50 mg total) by mouth daily flunisolide (NASALIDE) 25 mcg (0.025 %) spray,non-aerosol Past Week 10/05/21 -- Antoinette Riley PA Administer 2 sprays into each nostril 2 (two) times a day polyethylene glycol (GoLYTELY) 236-22.74-6.74 -5.86 gram solution 01/24/2022 12/07/21 -- Richard Juarez MD Drink Golytely/Nulytely 1/2 jug at 6:00 pm on 01/23/2022. Drink Golytely/Nulytely 1/2 jug at 4 hoursbefore leaving home on 01/24/2022. Notes: 1 jug Current Facility-Administered Medications: ??? ondansetron (ZOFRAN) injection 4 mg, 4 mg, intravenous, Q6H PRN ??? sodium chloride 0.9% flush 0.5-20 mL, 0.5-20 mL, intra-catheter, PRN ??? sodium chloride 0.9% infusion, 30 mL/hr, intravenous, Continuous, Last Rate: 30 mL/hr at 01/24/22 1358, 30 mL/hr at 01/24/22 1358 Social History Tobacco Use Smoking Status Never Smoker Smokeless Tobacco Never Used Substance and Sexual Activity Alcohol Use Not on file Substance and Sexual Activity Drug Use Not on file Family History Problem Relation Age of Onset ??? Prostate cancer Father Prostate cancer - age 66 (Added by TW Conv) Vitals: 01/24/22 1351 BP: 129/83 Pulse: 75 Resp: 16 Temp: 36.4 ??C (97.5 ??F) SpO2: 98% PT: No results found for requested labs within last 720 hours. INR: No results found for requested labs within last 720 hours. APTT: No results found for requested labs within last 720 hours. Hgb A1C: No results found for requested labs within last 720 hours. CBC RBC: No results found for requested labs within last 720 hours. RDW: No results found for requested labs within last 720 hours. MCHC: No results found for requested labs within last 720 hours. MCH: No results found for requested labs within last 720 hours. MCV: No results found for requested labs within last 720 hours. Hct: No results found for requested labs within last 720 hours. Hgb: No results found for requested labs within last 720 hours. WBC: No results found for requested labs within last 720 hours. MPV: No results found for requested labs within last 720 hours. Platelets: No results found for requested labs within last 720 hours. RDW CV: No results found for requested labs within last 720 hours. RDW Sd: No results found for requested labs within last 720 hours. BMP Glucose: No results found for requested labs within last 720 hours. Calcium: No results found for requested labs within last 720 hours. Sodium: No results found for requested labs within last 720 hours. Potassium: No results found for requested labs within last 720 hours. CO2: No results found for requested labs within last 720 hours. Chloride: No results found for requested labs within last 720 hours. BUN: No results found for requested labs within last 720 hours. Creatinine: No results found for requested labs within last 720 hours. DOS Physical Exam Medical history, medications, and allergies reviewed. Attestation: With today's edits, I endorse the the findings of the H&P dated: 01/24/2022. Airway Exam: Mallampati: II Cervical ROM: FROM Cardiovascular Exam: Rate: regular Rhythm: regular Pulmonary Exam: LCTA, bilat Dental Exam: Appears intact Anesthesia Plan ASA 2 My patient is approved for the Anesthesia Controlled Medication protocol when under care of a MANAGER PRODUCT MARKETING Planned anesthesia: MAC Induction: Induction: intravenous. Informed Consent: Discussed plan with MANAGER PRODUCT MARKETING. Anesthesia plan and risks discussed with patient. Consent and Attending signature: I and/or my designee have discussed the anesthesia plan, benefits, possible alternatives, parental presence at time of induction (if indicated), and clinically relevant risks that may include dental injury, unintentional awareness, and/or other complications. The patient and/or parent/legal guardian understand, and agree to proceed. All questions answered. documented in this encounter Plan of Treatment Not on file documented as of this encounter Procedures Procedure Name Priority Date/Time Associated Diagnosis Comments NM AN PROCEDURE PLACEHOLDER Routine 01/24/2022 3:51 PM CDT NM AN ELECTIVE ENDOTRACHEAL AIRWAY Routine 01/24/2022 3:51 PM CDT documented in this encounter Results * NM AN ELECTIVE ENDOTRACHEAL AIRWAY, NM AN PROCEDURE PLACEHOLDER (01/24/2022 3:51 PM CDT) Narrative Francy Coon CRNA - 01/24/2022 3:51 PM CDT Francy Coon CRNA ? 01/24/2022 ??4:59 PM Airway Patient location: OR Urgency: elective Indications for airway management: anesthesia Difficult airway: yes Maneuvers that helped ventilation: 2 person bag and mask and oral airway Maneuvers that helped intubation: bougie, cricoid pressure and different blade/size Factors contributing to intubation difficulty: limited mandibular protusion Staff: Placed by: MANAGER PRODUCT MARKETING: Francy Coon CRNA Emergent airway documentation: Risks and benefits discussed: yes Consent obtained: yes Consent given by: patient Airway prep: Preoxygenated: yes Patient position: sniffing Mask difficulty assessment: 3 - difficult mask (inadequate, unstable or two providers) Sedation level during airway: GA Final airway details: Final airway type: endotracheal airway Tube type: ETT ETT size: 7.0 mm Cuffed: yes Technique used for successful ETT placement: video laryngoscopy Devices/Methods used in placement: intubating stylet and flexible tip bougie Insertion site: oral Video blade type: CMAC Blade size: 4 Cormack-Lehane (direct): grade III - view of epiglottis only Cormack-Lehane (video): grade IIb - view of arytenoids or posterior of glottis only Cuff volume: 10 mL Cuff inflated with: air ETT to lips: 23 cm Placement verified by: auscultation and CO2 detection Airway secured with: silk tape Number of attempts: 2 Ventilation between attempts: BVM Additional comments: Patient emergently intubated due to laryngospasm. 1st attempt MAC3. Grade 3 view. 2nd attempt grade 2b view with CMAC 4 video laryngoscope. ETT passed through cords with bougie atraumatically. BVM with OA between attempts. 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 us Tracy Valencia MD ANESTHESIA ORDERABLES Edit ed Result - Final documented in this encounter Visit Diagnoses Not on filedocumented in this encounter Administered Medications Inactive Administered Medications - up to 3 most recent administrations Medication Order MAR Action Action Date Dose Rate Site albuterol HFA (PROVENTIL HFA,VENTOLIN HFA,PROAIR HFA) 90 mcg/actuation inhaler inhalation, As needed, Starting on Sun01/24/22 at 1440, Anesthesia Intra-op Given 01/24/2022 3:32 PM CDT 4 puffs Given 01/24/2022 2:40 PM CDT 8 puffs dexAMETHasone (DECADRON) 4 mg/mL injection intravenous, Administer over 2 Minutes, As needed, Starting on Sun01/24/22 at 1524, Anesthesia Intra-op Given 01/24/2022 3:24 PM CDT 8 mg lidocaine (cardiac) (XYLOCAINE) preservative free injection intravenous, As needed, Starting on Sun01/24/22 at 1425, Anesthesia Intra-op, Indications: Ventricular ArrhythmiasIndications:Ventricular Arrhythmias Given 01/24/2022 2:25 PM CDT 100 mg propofoL (DIPRIVAN) 10 mg/mL IV intravenous, As needed, Starting on Sun01/24/22 at 1425, Anesthesia Intra-op Given 01/24/2022 2:37 PM CDT 50 mg Given 01/24/2022 2:28 PM CDT 50 mg Given 01/24/2022 2:25 PM CDT 100 mg propofoL (DIPRIVAN) 10 mg/mL IV intravenous, Continuous PRN, Starting on Sun01/24/22 at 1425, Anesthesia Intra-op New Bag 01/24/2022 2:25 PM CDT 150 mcg/kg/min 89.82 mL/hr sodium chloride 0.9% infusion 30 mL/hr, intravenous, Continuous, Starting on Sun01/24/22 at 1415 Restarted 01/24/2022 3:42 PM CDT Rate/Dose Verify 01/24/2022 2:21 PM CDT 30 mL/h r New Bag 01/24/2022 1:58 PM CDT 30 mL/hr 30 mL/hr succinylcholine (ANECTINE) injection intravenous, As needed, Starting on Sun01/24/22 at 1437, Anesthesia Intra-op Given 01/24/2022 2:37 PM CDT 100 mg documented in this encounter Care Teams Graphic Editor Relationship Specialty Start Date End Date Gucci Vilchis MD PCP - General 04/16/17 08/08/22 documented as of this encounter
--- OUTSIDE RECORDS SUMMARY | 2024-11-22 10:53 | XMS_ITS | Encounter Summary ---
Author Organization [facility] Address [address] [place] [address] Phone Care Team Providers Care Tools Developer Name Role Phone Gucci Vilchis MD Primary Care Provider [phone] Encounter Details Date Type Department Care Team (Late st Contact Info) Description 02/01/2022 Telephone 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 Lvm, [facility] * Telephone Encounter - Sarbjit Becker RMA - 02/01/2022 9:44 AM CDT [facility] [address] [facility]. [place], [place] # [phone], requesting scripts for the Symtuza and Tivicay. Pt Ins will cover this pharmacy for fill at this time. documented in this encounter Plan of Treatment Not on file documented as of this encounter Visit Diagnoses Not on filedocumented in this encounter Care Teams Tools Developer Relationship Specialty Start Date End Date Gucci Vilchis MD PCP - General 04/16/17 08/08/22 documented as of this encounter
--- OUTSIDE RECORDS SUMMARY | 2024-11-22 10:53 | XMS_ITS | Encounter Summary ---
Author Organization [facility] Address [address] [place] [address] Phone Care Team Providers Care Print Controller Name Role Phone Gucci Vilchis MD Primary Care Provider [phone] Encounter Details Date Type Department Care Team (Late st Contact Info) Description 12/27/2021 Orders Only [facility] Infectious Diseases [address] [place] [address] [address] [place] [address] Antoinette Riley PA [address] [place] [address] [address] [place] [address] HIV disease (CMS/HCC) (HCC) Social History Tobacco Use Types Packs/Day Years Used Date Smoking Tobacco: Never Smokeless Tobacco: Never Sex and Gender Information Value Date Recorded Sex Assigned at Not on file 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 Gender Identity Not on file Sexual Orientation Not on file documented as of this encounter Ordered Prescriptions Prescription Sig Dispense Quantity Refills Last Filled Start Date End Date dolutegravir (TIVICAY) 50 mg tabletIndications: HIV disease (CMS/HCC) (HCC) Take 1 tablet (50 mg total) by mouth daily 90 tablet 2 12/27/2021 02/01/2022 zxmdjqqfx-kclo-eth ri-tenof ala (Symtuza) [id number] mg tabletIndications: HIV disease (CMS/HCC) (HCC) Take 1 tablet by mouth daily 90 tablet 2 12/27/2021 02/01/2022 documented in this encounter Plan of Treatment Not on file documented as of this encounter Visit Diagnoses Diagnosis HIV disease (CMS/HCC) (HCC) Human immunodeficiency virus [HIV] disease documented in this encounter Discontinued Medications Medication Sig Discontinue Reason Start Date End Da te hdgkeyfrh-gzdb-lewch-ten of ala (Symtuza) [id number] mg tabletIndications:HIV disease (CMS/HCC) (HCC) Take 1 tablet by mouth daily Reorder 12/26/2021 12/27/2021 dolutegravir (TIVICAY) 50 mg tabletIndications:HIV disease (CMS/HCC) (HCC) Take 1 tablet (50 mg total) by mouth daily Reorder 12/26/2021 12/27/2021 documented as of this encounter Care Teams Print Controller Relationship Specialty Start Date End Date Gucci Vilchis MD PCP - General 04/16/17 08/08/22 documented as of this encounter
--- OUTSIDE RECORDS SUMMARY | 2024-11-22 10:54 | XMS_ITS | Encounter Summary ---
Author Organization [facility] Address [address] [facility] [address] [place] [address] Phone Care Team Providers Care Shoe Reconditioner Name Role Phone Gucci Vilchis MD Primary Care Provider [phone] Encounter Details Date Type Department Care Team (Late st Contact Info) Description 10/31/2019 Telephone [facility] Infectious Diseases [address] [place] [address] Flora Humphries Social History Tobacco Use Types Packs/Day Years Used Date Smoking Tobacco: Never Smokeless Tobacco: Never Sex and Gender Information Value Date Recorded Sex Assigned at Not on file 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 TERESSA Hollis ?? VL is up due to recent non-adherence. Left VM for patient to call us back. Would like him to continue his meds and return in 1 month for repeat VL with genotypes. GER OF HUMAN RESOURCES documented in this encounter Plan of Treatment Not on file documented as of this encounter Visit Diagnoses Not on filedocumented in this encounter Care Teams Shoe Reconditioner Relationship Specialty Start Date End Date Gucci Vilchis MD PCP - General 04/16/17 08/08/22 [facility] [employer] Supervisor 10/30/18 12/08/21 documented as of this encounter
--- OUTSIDE RECORDS SUMMARY | 2024-11-22 10:54 | XMS_ITS | Encounter Summary ---
Author Organization [facility] Address [address] [place] [address] Phone Care Team Providers Care Materials Supervisor Name Role Phone Gucci Vilchis MD Primary Care Provider [phone] Encounter Details Date Type Department Care Team (Late st Contact Info) Description 12/22/2021 Orders Only [facility] Infectious Diseases [address] [place] [address] [address] [place] [id number] Antoinette Riley PA [address] [facility] [address] [place], [place] [id number] Social History Tobacco Use Types Packs/Day Years Used Date Smoking Tobacco: Never Smokeless Tobacco: Never Sex and Gender Information Value Date Recorded Sex Assigned at Not on file 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
--- OUTSIDE RECORDS SUMMARY | 2024-11-22 10:54 | XMS_ITS | Encounter Summary ---
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 Gender Identity Not on file Sexual Orientation Not on file documented as of this encounter Plan of Treatment Not on file documented as of this encounter Procedures Procedure Name Priority Date/Time Associated Diagnosis Comments URINE CULTURE Routine 06/28/2021 11:26 AM CDT documented in this encounter Results * Urine culture Urine (06/28/2021 11:26 AM CDT) Report Final Report: Less than 100,000 colonies/mL (clinically insignificant growth based on current clinical standards) [facility] Organism (CLINICALLY INSIGNIFICANT GROWTH [facility] Urine 06/28/2021 11:2 6 AM CDT 06/28/2021 7:16 PM CDT Narrative [facility] - 06/29/2021 9:52 PM CDT Urine culture reflexed based upon urinalysis results. Testing performed by [facility] ([phone]) Antoinette GANNON LAB MICROBIOLOGY - GENERAL ORDERABLES Final Result [facility] Department [place] [address] documented in this encounter Visit Diagnoses Not on filedocumented in this encounter Care Teams Brush Operator Relationship Specialty Start Date End Date Gucci Vilchis MD PCP - General 04/16/17 08/08/22 [facility] [place] Glass Laminating Operator 10/30/18 12/08/21 documented as of this encounter
--- OUTSIDE RECORDS SUMMARY | 2024-11-22 10:54 | XMS_ITS | Encounter Summary ---
Author Organization [facility] Healthcare Address [address] [place] [address] Care Team Providers Care Doctor Of Naturopathic Medicine Name Role Phone Gucci Vilchis MD Primary Care Provider [phone] Encounter Details Date Type Department Care Team (Late st Contact Info) Description 12/14/2020 1:55 PM MANAGER MECHANICAL MAINTENANCE Lab [address] [address] Social History Tobacco Use Types Packs/Day Years Used Date Smoking Tobacco: Never Smokeless Tobacco: Never Sex and Gender Information Value Date Recorded Sex Assigned at Not on file Legal Sex Male 7:55 PM MANAGER MECHANICAL MAINTENANCE Gender Identity Not on file Sexual Orientation Not on file documented as of this encounter Plan of Treatment Not on file documented as of this encounter Visit Diagnoses Not on filedocumented in this encounter Care Teams Doctor Of Naturopathic Medicine Relationship Specialty Start Date End Date Gucci Vilchis MD PCP - General 04/16/17 08/08/22 [facility] [place] Savings Counselor 10/30/18 12/08/21 documented as of this encounter
--- OUTSIDE RECORDS SUMMARY | 2024-11-22 10:54 | XMS_ITS | Encounter Summary ---
Author Organization [facility] Care Team Providers Care Accredited Legal Secretary Name Role Phone Gucci Vilchis MD Primary Care Provider [phone] Encounter Details Date Type Department Care Team (Latest Contact Info) Description 10/28/2019 Travel Social History Tobacco Use Types Packs/Day Years Used Date Smoking Tobacco: Never Smokeless Tobacco: Never Sex and Gender Information Value Date Recorded Sex Assigned at Not on file Legal Sex Male 7:55 PM CONTRACT LAW SPECIALIST Gender Identity Not on file Sexual Orientation Not on file documented as of this encounter Plan of Treatment Not on file documented as of this encounter Visit Diagnoses Not on filedocumented in this encounter Care Teams Accredited Legal Secretary Relationship Specialty Start Date End Date Gucci Vilchis MD PCP - General 04/16/17 08/08/22 [facility] [place] Senior Operations Manager 10/30/18 12/08/21 documented as of this encounter
--- OUTSIDE RECORDS SUMMARY | 2024-11-22 10:54 | XMS_ITS | Encounter Summary ---
Author Organization [facility] Address [address] [place] [address] Phone Care Team Providers Care Milk Hauler Name Role Phone Gucci Vilchis MD Primary Care Provider [phone] Encounter Details Date Type Department Care Team (Late st Contact Info) Description 10/06/2021 Orders Only [facility] Infectious Diseases [address] [place] [address] Antoinette Riley PA [address] [facility] [address] [place] [address] HIV disease (CMS/HCC) (HCC) (Primary Dx); On highly active antiretroviral therapy (HAART); Routine screening for STI (sexually transmitted infection) Social History Tobacco Use Types Packs/Day Years Used Date Smoking Tobacco: Never Smokeless Tobacco: Never Sex and Gender Information Value Date Recorded Sex Assigned at Not on file Legal Sex Male 7:55 PM CLIENT EXPERIENCE ADMINISTRATOR Gender Identity Not on file Sexual Orientation Not on file documented as of this encounter Progress Notes * Antoinette Riley PA - 10/06/2021 8:07 PM CST Patient to return to clinic for repeat VL and RPR due to mislabeled specimen. NT EXPERIENCE ADMINISTRATOR documented in this encounter Plan of Treatment Not on file documented as of this encounter Visit Diagnoses Diagnosis HIV disease (CMS/HCC) (HCC)- Primary Human immunodeficiency virus [HIV] disease On highly active antiretroviral therapy (HAART) Routine screening for STI (sexually transmitted infection) Screening examination for venereal disease documented in this encounter Care Teams Milk Hauler Relationship Specialty Start Date End Date Gucci Vilchis MD PCP - General 04/16/17 08/08/22 [facility] Barn Boss 10/30/18 12/08/21 documented as of this encounter
--- OUTSIDE RECORDS SUMMARY | 2024-11-22 10:54 | XMS_ITS | Encounter Summary ---
Author Organization [facility] Healthcare Address [address] [place] [address] Care Team Providers Care Emissions Technician Name Role Phone Gucci Vilchis MD Primary Care Provider [phone] Encounter Details Date Type Department Care Team (Late st Contact Info) Description 11/14/2021 Telephone [facility] Specialty Services [address] [place] [phone] Lara Jim RN Social History Tobacco Use Types Packs/Day Years Used Date Smoking Tobacco: Never Smokeless Tobacco: Never Sex and Gender Information Value Date Recorded Sex Assigned at Not on file Legal Sex Male 7:55 PM CASHIER OFFICE Gender Identity Not on file Sexual Orientation Not on file documented as of this encounter Miscellaneous Notes * Telephone Encounter - Lara Jim RN - 11/14/2021 3:25 PM CASHIER OFFICE Spoke to pt regarding GI procedure. Pt interested in scheduling. Transferred pt to [facility] in GI scheduling hub and also provided pt with number at [phone]. [facility] OFFICE documented in this encounter Plan of Treatment Not on file documented as of this encounter Visit Diagnoses Not on filedocumented in this encounter Care Teams Emissions Technician Relationship Specialty Start Date End Date Gucci Vilchis MD PCP - General 04/16/17 08/08/22 [facility] Manager Advertising 10/30/18 12/08/21 documented as of this encounter
--- OUTSIDE RECORDS SUMMARY | 2024-11-22 10:54 | XMS_ITS | Encounter Summary ---
Author Organization [facility] Address [address] [place] [address] Phone Care Team Providers Care Medical Records Auditor Name Role Phone Gucci Vilchis MD Primary Care Provider [phone] Encounter Details Date Type Department Care Team (Late st Contact Info) Description 11/07/2019 Telephone [facility] Infectious Diseases [address] [place] [address] Sarbjit Becker RMA Social History Tobacco Use Types Packs/Day Years Used Date Smoking Tobacco: Never Smokeless Tobacco: Never Sex and Gender Information Value Date Recorded Sex Assigned at Not on file Legal Sex Male 7:55 PM RESEARCH AND EVALUATION ANALYST Gender Identity Not on file Sexual Orientation Not on file documented as of this encounter Miscellaneous Notes * Telephone Encounter - Flora Humphries - 11/10/2019 2:24 PM CST Return call, discussed slightly elevated VL, requested repeat VL in 1 month. Will call pt in 3 weeks for reminder. ARCH AND EVALUATION ANALYST * Telephone Encounter - Sarbjit Becker RMA - 11/07/2019 11:12 AM RESEARCH AND EVALUATION ANALYST Pt requesting a call back, pt did not give any details for the call. ARCH AND EVALUATION ANALYST documented in this encounter Plan of Treatment Not on file documented as of this encounter Visit Diagnoses Not on filedocumented in this encounter Care Teams Medical Records Auditor Relationship Specialty Start Date End Date Gucci Vilchis MD PCP - General 04/16/17 08/08/22 [facility] Nursing Department Chairperson 10/30/18 12/08/21 documented as of this encounter
--- OUTSIDE RECORDS SUMMARY | 2024-11-22 10:54 | XMS_ITS | Encounter Summary ---
Author Organization [facility] Address [address] [facility] [address] [place] [address] Phone Care Team Providers Care Attending Radiologist Name Role Phone Gucci Vilchis MD Primary Care Provider [phone] Reason for Visit * Reason Onset Date Comments vl detectable; has been off meds 12/07/2020 Encounter Details Date Type Department Care Team (Late st Contact Info) Description 12/07/[address] [facility] Infectious Diseases [address] [place] [address] [address] [place] [address] Tequila Luu RN vl detectable; has been off meds Social History Tobacco Use Types Packs/Day Years Used Date Smoking Tobacco: Never Smokeless Tobacco: Never Sex and Gender Information Value Date Recorded Sex Assigned at Not on file Legal Sex Male 7:55 PM FOREST MANAGEMENT PROFESSOR Gender Identity Not on file Sexual Orientation Not on file documented as of this encounter Miscellaneous Notes * Telephone Encounter - Tequila Luu RN - 12/07/2020 3:32 PM CST Patient asking for earlier appt than 01/07 and to switch back to Antoinette Riley. His recent vl is detectable and he has not been taking his meds. Wants to know if it is okay to restart or if he should be switched to other medications. Appt made for 12/14; next Sunday. Pt agreeable. ST MANAGEMENT PROFESSOR documented in this encounter Plan of Treatment Not on file documented as of this encounter Visit Diagnoses Not on filedocumented in this encounter Care Teams Attending Radiologist Relationship Specialty Start Date End Date Gucci Vilchis MD PCP - General 04/16/17 08/08/22 [facility] Lithostripper 10/30/18 12/08/21 documented as of this encounter
--- OUTSIDE RECORDS SUMMARY | 2024-11-22 10:54 | XMS_ITS | Encounter Summary ---
Author Organization [facility] Address [address] [facility] [address] [place] [address] Phone Care Team Providers Care Propulsion Generator Repairer Name Role Phone Gucci Vilchis MD Primary Care Provider [phone] Encounter Details Date Type Department Care Team (Late st Contact Info) Description 02/09/2020 Telephone [facility] Infectious Diseases [address] [place] [address] Lottie Wan CMA Social History Tobacco Use Types Packs/Day Years Used Date Smoking Tobacco: Never Smokeless Tobacco: Never Sex and Gender Information Value Date Recorded Sex Assigned at Not on file Legal Sex Male 7:55 PM TURBINE OPERATOR Gender Identity Not on file Sexual Orientation Not on file documented as of this encounter Miscellaneous Notes * Telephone Encounter - Lottie Wan CMA - 02/09/2020 1:26 PM CDT Spoke to patient about rescheduling patient to 04/13/20 at 1040. documented in this encounter Plan of Treatment Not on file documented as of this encounter Visit Diagnoses Not on filedocumented in this encounter Care Teams Propulsion Generator Repairer Relationship Specialty Start Date End Date Gucci Vilchis MD PCP - General 04/16/17 08/08/22 [facility] Hooker Up 10/30/18 12/08/21 documented as of this encounter
--- OUTSIDE RECORDS SUMMARY | 2024-11-22 10:54 | XMS_ITS | Encounter Summary ---
Author Organization [facility] Address [address] [facility] [address] [place] [address] Phone Care Team Providers Care Manager Video Games Name Role Phone Gucci Vilchis MD Primary Care Provider [phone] Reason for Visit * Reason Onset Date Comments Patient issue/concern 11/18/2019 Encounter Details Date Type Department Care Team (Late st Contact Info) Description 11/18/[address] [facility] Infectious Diseases [address] [place] [address] Francheska Gunderson CMA Patient issue/concern Social History Tobacco Use Types Packs/Day Years Used Date Smoking Tobacco: Never Smokeless Tobacco: Never Sex and Gender Information Value Date Recorded Sex Assigned at Not on file Legal Sex Male 7:55 PM NUTRITION PARTNER Gender Identity Not on file Sexual Orientation Not on file documented as of this encounter Miscellaneous Notes * Telephone Encounter - Flora Humphries - 11/19/2019 11:59 AM CST Spoke with Dashawn, discussed scripts and labs sent to [facility] ITION PARTNER * Telephone Encounter - Francheska Gunderson CMA - 11/18/2019 10:48 AM NUTRITION PARTNER Patient is returning your call. ITION PARTNER documented in this encounter Plan of Treatment Not on file documented as of this encounter Visit Diagnoses Not on filedocumented in this encounter Care Teams Manager Video Games Relationship Specialty Start Date End Date Gucci Vilchis MD PCP - General 04/16/17 08/08/22 [facility] Supervisor Sign Shop 10/30/18 12/08/21 documented as of this encounter
--- OUTSIDE RECORDS SUMMARY | 2024-11-22 10:54 | XMS_ITS | Encounter Summary ---
Author Organization [facility] Healthcare Address [address] [place] [address] Care Team Providers Care Director Maternal Child Name Role Phone Gucci Vilchis MD Primary Care Provider [phone] Encounter Details Date Type Department Care Team (Late st Contact Info) Description 06/28/2021 3:30 PM CDT Lab [address] [address] Social History Tobacco Use Types Packs/Day Years Used Date Smoking Tobacco: Never Smokeless Tobacco: Never Sex and Gender Information Value Date Recorded Sex Assigned at Not on file Legal Sex Male 7:55 PM FOUR HORSE HITCH DRIVER Gender Identity Not on file Sexual Orientation Not on file documented as of this encounter Plan of Treatment Not on file documented as of this encounter Visit Diagnoses Not on filedocumented in this encounter Care Teams Director Maternal Child Relationship Specialty Start Date End Date Gucci Vilchis MD PCP - General 04/16/17 08/08/22 [facility] [place] Land Title Examiner 10/30/18 12/08/21 documented as of this encounter
--- OUTSIDE RECORDS SUMMARY | 2024-11-22 10:54 | XMS_ITS | Encounter Summary ---
Author Organization [facility] Address [address] [facility] [address] [place] [address] Phone Care Team Providers Care Veterinary Parasitologist Name Role Phone Gucci Vilchis MD Primary Care Provider [phone] Encounter Details Date Type Department Care Team (Late st Contact Info) Description 10/05/2021 Telephone [facility] Infectious Diseases [address] [place] [address] Heidi Curry RPh Social History Tobacco Use Types Packs/Day Years Used Date Smoking Tobacco: Never Smokeless Tobacco: Never Sex and Gender Information Value Date Recorded Sex Assigned at Not on file Legal Sex Male 7:55 PM NAIL CUTTER Gender Identity Not on file Sexual Orientation Not on file documented as of this encounter Miscellaneous Notes * Telephone Encounter - Heidi Curry RPh - 10/05/2021 2:04 PM CST Patient has completed the consent form in the pharmacy. Please document the following under historical immunizations. Thank you! 3RD/BOOSTER Dose of Pfizer series given in the Left Deltoid on 10/05/21. [facility]: [id number] Qty: 0.3mL Lot: [id number] Exp: 04/11/2022 CUTTER documented in this encounter Plan of Treatment Not on file documented as of this encounter Visit Diagnoses Not on filedocumented in this encounter Care Teams Veterinary Parasitologist Relationship Specialty Start Date End Date Gucci Vilchis MD PCP - General 04/16/17 08/08/22 [facility] [place] Cotton Picker Operator 10/30/18 12/08/21 documented as of this encounter
--- OUTSIDE RECORDS SUMMARY | 2024-11-22 10:54 | XMS_ITS | Encounter Summary ---
Author Organization [facility] Address [address] [place] [address] Phone Care Team Providers Care Stator Plate Washer Name Role Phone Gucci Vilchis MD Primary Care Provider [phone] Encounter Details Date Type Department Care Team (Late st Contact Info) Description 11/28/2019 Orders Only [facility] Infectious Diseases [address] [place] [address] [address] [place] [address] Antoinette Riley PA [facility] [address] [facility] [address] [place] [address] HIV disease (CMS/HCC) (Primary Dx) Social History Tobacco Use Types Packs/Day Years Used Date Smoking Tobacco: Never Smokeless Tobacco: Never Sex and Gender Information Value Date Recorded Sex Assigned at Not on file Legal Sex Male 7:55 PM ANALYTICAL SCIENCES DIRECTOR Gender Identity Not on file Sexual Orientation Not on file documented as of this encounter Plan of Treatment Not on file documented as of this encounter Results * (ABNORMAL) HIV-1 RNA PCR, quantitative (12/29/2019 4:03 PM ANALYTICAL SCIENCES DIRECTOR) [facility] HIV-1 RNA Detected( Roland) [facility] Comment: Interpretive Data: The quantifiable range of this assay is 20 copies/mL to 10,000,000 copies/mL (1.30 log copies/mL to 7.00 log copies/mL). ??Testing was performed by the [employer] AmpliPrep/NIELS TaqMan HIV-1 Test version 2.0 (Andrés [employer] Testing performed at [facility] Current Interpretive Data was last revised on 2015. HIV-1 RNA, copies/mL 63 copies/mL [facility] HIV-1 RNA, log 1.80 log cps/mL [facility] Blood specimen (specimen) 12/29/2019 4:03 PM ANALYTICAL SCIENCES DIRECTOR 12/29/2019 8:14 PM ANALYTICAL SCIENCES DIRECTOR Antoinette GANNON LAB MICROBIOLOGY - GENERAL ORDERABLES Final Result [facility] Department [place] [address] documented in this encounter Visit Diagnoses Diagnosis HIV disease (CMS/HCC) (HCC)- Primary Human immunodeficiency virus [HIV] disease documented in this encounter Care Teams Stator Plate Washer Relationship Specialty Start Date End Date Gucci Vilchis MD PCP - General 04/16/17 08/08/22 [facility] Overhead Distribution Engineer 10/30/18 12/08/21 documented as of this encounter
--- OUTSIDE RECORDS SUMMARY | 2024-11-22 10:54 | XMS_ITS | Encounter Summary ---
Author Organization [facility] Address [address] [place] [address] Phone Care Team Providers Care Garage Laborer Name Role Phone Gucci Vilchis MD Primary Care Provider [phone] Encounter Details Date Type Department Care Team (Late st Contact Info) Description 12/29/2019 Orders Only [facility] Infectious Diseases [address] [place] [address] [address] [place] [address] Antoinette Riley PA [address] [place] [address] [address] [place] [address] HIV disease (CMS/HCC) Social History Tobacco Use Types Packs/Day Years Used Date Smoking Tobacco: Never Smokeless Tobacco: Never Sex and Gender Information Value Date Recorded Sex Assigned at Not on file Legal Sex Male 7:55 PM AIR TRANSPORTATION PROVIDER Gender Identity Not on file Sexual Orientation Not on file documented as of this encounter Plan of Treatment Not on file documented as of this encounter Procedures Procedure Name Priority Date/Time Associated Diagnosis Comments HIV-1 RNA, QUANTITATIVE, PCR Routine 12/29/2019 4:03 PM AIR TRANSPORTATION PROVIDER HIV disease (CMS/HCC) documented in this encounter Results * (ABNORMAL) HIV-1 RNA PCR, quantitative (12/29/2019 4:03 PM AIR TRANSPORTATION PROVIDER) HIV-1 RNA Detected( A) [facility] Comment: Interpretive Data: The quantifiable range of this assay is 20 copies/mL to 10,000,000 copies/mL (1.30 log copies/mL to 7.00 log copies/mL). ??Testing was performed by the [employer] AmpliPrep/NIELS TaqMan HIV-1 Test version 2.0 ([employer] Testing performed at [facility] Current Interpretive Data was last revised on 2015. HIV-1 RNA, copies/mL 63 copies/mL [facility] HIV-1 RNA, log 1.80 log cps/mL [facility] Blood specimen (specimen) 12/29/2019 4:03 PM AIR TRANSPORTATION PROVIDER 12/29/2019 8:14 PM AIR TRANSPORTATION PROVIDER us Antoinette GANNON LAB MICROBIOLOGY - GENERAL ORDERABLES Final Result [facility] Department [place] [address] documented in this encounter Visit Diagnoses Diagnosis HIV disease (CMS/HCC) (HCC) Human immunodeficiency virus [HIV] disease documented in this encounter Care Teams Garage Laborer Relationship Specialty Start Date End Date Gucci Vilchis MD PCP - General 04/16/17 08/08/22 [facility] [place] Clinical Pharmacy Coordinator 10/30/18 12/08/21 documented as of this encounter
--- OUTSIDE RECORDS SUMMARY | 2024-11-22 10:54 | XMS_ITS | Encounter Summary ---
Author Organization [facility] Address [address] [place] [address] Phone Care Team Providers Care Fsr Name Role Phone Gucci Vilchis MD Primary Care Provider [phone] Encounter Details Date Type Department Care Team (Late st Contact Info) Description 12/26/2021 Orders Only [facility] Infectious Diseases [address] [place] [address] [address] [place] [address] Antoinette Riley PA [address] [place] [address] [address] [place] [address] HIV disease (CMS/HCC) (HCC) Social History Tobacco Use Types Packs/Day Years Used Date Smoking Tobacco: Never Smokeless Tobacco: Never Sex and Gender Information Value Date Recorded Sex Assigned at Not on file Legal Sex Male 7:55 PM [employer] Gender Identity Not on file Sexual Orientation Not on file documented as of this encounter Ordered Prescriptions Prescription Sig Dispense Quantity Refills Last Filled Start Date End Date dolutegravir (TIVICAY) 50 mg tabletIndications: HIV disease (CMS/HCC) (HCC) Take 1 tablet (50 mg total) by mouth daily 90 tablet 2 12/26/2021 12/27/2021 pvxaxyyue-jxlu-xvv ri-tenof ala (Symtuza) [phone] mg tabletIndications: HIV disease (CMS/HCC) (HCC) Take 1 tablet by mouth daily 90 tablet 2 12/26/2021 12/27/2021 documented in this encounter Plan of Treatment Not on file documented as of this encounter Visit Diagnoses Diagnosis HIV disease (CMS/HCC) (HCC) Human immunodeficiency virus [HIV] disease documented in this encounter Discontinued Medications Medication Sig Discontinue Reason Start Date End Da te zztbrivoa-yebq-inrbd-ten of ala (Symtuza) [phone] mg tabletIndications:HIV disease (CMS/HCC) (HCC) Take 1 tablet by mouth daily Reorder 12/14/2020 12/26/2021 dolutegravir (TIVICAY) 50 mg tabletIndications:HIV disease (CMS/HCC) (HCC) Take 1 tablet (50 mg total) by mouth daily Reorder 12/14/2020 12/26/2021 documented as of this encounter Care Teams Fsr Relationship Specialty Start Date End Date Gucci Vilchis MD PCP - General 04/16/17 08/08/22 documented as of this encounter
--- OUTSIDE RECORDS SUMMARY | 2024-11-22 10:54 | XMS_ITS | Encounter Summary ---
Author Organization [facility] Address [address] [place] [address] Phone Care Team Providers Care Telecommunications Specialist Name Role Phone Gucci Vilchis MD Primary Care Provider [phone] Reason for Visit * Reason Comments Follow-up * Consultation (Routine) - Canceled Specialty Diagnoses / Procedures Referred By Markell tong Referred To Contact Infectious Diseases Diagnoses HIV disease (CMS/HCC) (HCC) Be Knight SaloTERESSA Phone: tel: fax: [facility] (All Locations) Referral ID Status Reason Start Date Expiration Date Visits Requested Visits Authorized [id number] Canceled Specialty Services Required 03/24/2020 10/03/[phone] Encounter Details Date Type Department Care Team (Late st Contact Info) Description 10/29/2020 2:40 PM DRY DRUG WORKER Office Visit [facility] Infectious Diseases [address] [place] [address] [address] [place] [address] Anne Barros, DIAMOND [address] [place] [address] HIV disease (CMS/HCC) (Primary Dx); Long-term use of high-risk medication Social History Tobacco Use Types Packs/Day Years Used Date Smoking Tobacco: Never Smokeless Tobacco: Never Sex and Gender Information Value Date Recorded Sex Assigned at Not on file Legal Sex Male 7:55 PM DRY DRUG WORKER Gender Identity Not on file Sexual Orientation Not on file documented as of this encounter Last Filed Vital Signs Vital Sign Reading Time Taken Comments Blood Pressure 115/69 10/29/2020 2:57 PM DRY DRUG WORKER Pulse 82 10/29/2020 2:57 PM DRY DRUG WORKER Temperature 36.3 ??C (97.3 ??F) 10/29/2020 2:57 PM CS T Respiratory Rate - - Oxygen Saturation - - Inhaled Oxygen Concentration - - Weight 98.9 kg (218 lb) 10/29/2020 2:57 PM DRY DRUG WORKER Height 182.9 cm (6') 10/29/2020 2:57 PM DRY DRUG WORKER Body Mass Index 29.57 10/29/2020 2:57 PM DRY DRUG WORKER documented in this encounter Ordered Prescriptions Prescription Sig Dispense Quantity Refills Last Filled Start Date End Date darunavir ethanolate (Prezista) 800 mg tabletIndications: HIV disease (CMS/HCC) (HCC) Take 1 tablet (800 mg total) by mouth daily 30 tablet 2 10/29/2020 06/28/2021 xtfcqgo-jyw-qyocl- tenof ALAFEN (Genvoya) [id number] mg tabletIndications: HIV disease (CMS/HCC) (HCC) Take 1 tablet by mouth daily with lunch 30 tablet 2 10/29/2020 12/14/2020 documented in this encounter Progress Notes * Anne Barros, DIAMOND - 10/29/2020 2:40 PM CST Subjective/Objective Patient ID: Dashawn Howell is a 50 y.o. male. HPI Mr. DASHAWN HOWELL is a 50 year old man initially diagnosed with HIV in 1998 by patient report. cART history includes Combivir/Sustiva, Truvada/ddI/Prezista/Norvir and Atripla. Past Genotypes: November 2010- ??M184I/M, K103N, L100I/L, and P225H/P; April 2017- K103N, P225H. He is currently on Genvoya/Prezista. Most recent labs from Oct 2019 noted a CD4 count of 442 (22%) and a viral load of less than 20 copies. ? Patient states he is doing well. 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 Patient stateshis health is doing fine. He has no questions or concerns today. He smokes an occasional Black and Mild. Drinks occasionally. Denies use of any illicit drugs. Reports sex with female partners, but states he is not sexually active.?? Review of Systems Constitutional: Negative for appetite change, chills, fatigue, fever and unexpected weight change. HENT: Negative for sore throat and trouble swallowing. Eyes: Negative for visual disturbance. Respiratory: Negative for cough and shortness of breath. Cardiovascular: Negative for chest pain and palpitations. Gastrointestinal: Negative for abdominal pain, blood in stool, diarrhea, nausea and vomiting. Genitourinary: Negative for discharge, dysuria, flank pain, genital sores and hematuria. Musculoskeletal: Negative for arthralgias and myalgias. Skin: Negative for rash and wound. Neurological: Negative for dizziness and headaches. Immunization History Administered Date(s) Administered ??? Hep A, Adult 12/31/2012 ??? Hep B Vaccine 06/02/2014 ??? Influenza, Quadrivalent, Cell Culture-based MDCK, Antibiotic Free, Intramuscular 10/29/2020 ??? Influenza, Quadrivalent, Cell Culture-based MDCK, Preservative Free, Antibiotic Free, Intramuscular 10/28/2019 ??? Influenza, Trivalent, Intramuscular 10/17/2011, 08/06/2012, 11/25/2013 ??? Influenza, Trivalent, Preservative Free, Intramuscular 08/16/2016 ??? PPD TEST 10/26/2010, 12/12/2011, 12/31/2012 ??? Pneumococcal Conjugate PCV 13 06/02/2014 ??? Pneumococcal Polysaccharide PPV23 12/31/2012 ??? Tdap 07/05/2018 STD SCREENING -SYPHILIS Lab Results Component Value Date LABRPR Nonreactive 10/29/2020 LABRPR Nonreactive 10/28/2019 LABRPR Non-Reactive 12/05/2018 -MICRO including GONORRHEA, CHLAMYDIA AND TRICHOMONAS Lab Results Component Value Date MICROBIOLOGY 07/05/2018 Final Report: Less than 100,000 [...] trachomatis rRNA Negative for: Neisseria gonorrhoeae rRNA [id number] NOT DETECTED 12/31/2012 [id number] NOT DETECTED 12/31/2012 [id number] NOT DETECTED 11/25/2013 [id number] NOT DETECTED 11/25/2013 No results found for: TRICHOMONU ANNUAL LABS AND SCREENING -TB SCREENING Lab Results Component Value Date IFNGAMMAREL Negative 07/05/2018 [id number] See Comment 08/16/2016 PPD Negative 10/29/2020 -LIPIDS Lab Results Component Value Date CHOL 200 (H) 10/29/2020 CHOL 224 (H) 10/28/2019 CHOL 294 (H) 07/05/2018 TRIG 259 (H) 10/29/2020 TRIG 121 10/28/2019 TRIG 140 07/05/2018 HDL 37 (L) 10/29/2020 HDL 39 (L) 10/28/2019 HDL 51 07/05/2018 LDL 178 (H) 08/16/2016 LDL 149 (H) 07/15/2015 CDRHIST 216 08/16/2016 CDRHIST 170 07/15/2015 LDLCALC 111 10/29/2020 LDLCALC 161 (H) 10/28/2019 LDLCALC 215 (H) 07/05/2018 NONHDLCHOL 163 10/29/2020 NONHDLCHOL 185 10/28/2019 NONHDLCHOL 243 07/05/2018 -GLYCEMIC CONTROL Lab Results Component Value Date HGBA1C 6.0 (H) 10/29/2020 HGBA1C 6.0 (H) 10/28/2019 HGBA1C 5.6 07/05/2018 -HEPATITIS C SCREENING Lab Results Component Value Date HEPCAB Nonreactive 10/29/2020 -IF ON TDF, SCREENING FOR PROTEINURIA Lab Results Component Value Date PROTURQL Negative 10/29/2020 PROTURQL Negative 10/28/2019 PROTURQL Negative 07/05/2018 -HPV SCREENING ON CERVICAL PAP No results found for: HIRSKHPVRNA, HPVG16, [id number], [id number] -PROSTATE CANCER SCREENING IF HIGH RISK No results found for: PSA BASELINE SCREENING -HEPATITIS A IMMUNITY STATUS Lab Results Component Value Date HAV Positive (A) 08/16/2016 -HEPATITIS B IMMUNITY STATUS Lab Results Component Value Date HEPBSAB Positive 08/16/2016 HEPBSAB 384 08/16/2016 -TOXOPLASMA IMMUNITY STATUS Lab Results Component Value Date TOXOIGG Negative 12/05/2018 [id number] < OR = 0.90 11/25/2013 -CMV IMMUNITY STATUS No results found for: CMVIGG -G6PD LEVEL (NORMAL >4.6) Lab Results Component Value Date G6PD Normal 08/16/2016 -[id number] STATUS Lab Results Component Value Date [id number] Negative 11/25/2013 Assessment/Plan Mr. DASHAWN HOWELL is a 50 year old man initially diagnosed with HIV in 1998 by patient report. cART history includes Combivir/Sustiva, Truvada/ddI/Prezista/Norvir and Atripla. Past Genotypes: November 2010- ??M184I/M, K103N, L100I/L, and P225H/P; April 2017- K103N, P225H. He is currently on Genvoya/Prezista. Most recent labs from Oct 2019 noted a CD4 count of 442 (22%) and a viral load of less than 20 copies. Diagnoses and all orders for this visit: HIV disease (CMS/HCC) (B20) (Primary) Assessment & Plan: Continue Genvoya/Prezista with 100% adherence encouraged to maintain viral suppression and prevent resistance. Undetectable = untransmittable. Risk reduction counseling and adherence counseling provided. Orders: - eljfups-wde-lugjp-tenof ALAFEN (Genvoya) [phone] mg tablet; Take 1 tablet by mouth daily with lunch - darunavir ethanolate (Prezista) 800 mg tablet; Take 1 tablet (800 mg total) by mouth daily - CBC with auto differential; Future - Comprehensive metabolic panel (Outreach); Future - Flu Vaccine MDCK Quad 4y+ IM - Flucelvax - Hemoglobin A1c; Future - Hepatitis C antibody; Future - Urinalysis reflex to microscopic and culture Urine, clean voided; Future - T-helper cells (CD4) count; Future - T-SPOT.TB; Future - RPR; Future - N. gonorrhoeae/C. trachomatis Amplification Urine; Future - Lipid panel; Future - HIV-1 RNA PCR, quantitative; Future - HIV-1 integrase genotype; Future - HIV-1 veena [place]-RT resistance P; Future - Comprehensive metabolic panel, without glucose (Outreach) - Glucose, random (Outreach) - Differential, auto - Urinalysis, microscopic only Long-term use of high-risk medication (Z79.899) Encounter for long-term (current) use of high-risk medication (Z79.899) RTC 3 months The supervising physician present in this office suite is Dr. Bird May. DRUG WORKER documented in this encounter Miscellaneous Notes * Assessment & Plan Note - Anne Barros NP - 11/18/2020 9:10 AM DRY DRUG WORKER Associated Problem(s): HIV infection (HCC) Continue Genvoya/Prezista with 100% adherence encouraged to maintain viral suppression and prevent resistance. Undetectable = untransmittable. Risk reduction counseling and adherence counseling provided. DRUG WORKER * Addendum Note - Yolanda Cruz RMA - 10/29/2020 2:40 PM CSTAddended by: YOLANDA CRUZ on: 12/09/2020 01:36 PM Modules accepted: Orders DRUG WORKER documented in this encounter Plan of Treatment Not on file documented as of this encounter Procedures Procedure Name Priority Date/Time Associated Diagnosis Comments N. GONORRHOEAE/C. TRACHOMATIS AMPLIFICATION Routine 10/29/2020 3:36 PM DRY DRUG WORKER HIV disease ([facility]/HCC) T-SPOT.TB Routine 10/29/2020 3:36 PM DRY DRUG WORKER HIV disease (CMS/HCC) GLUCOSE, RANDOM (OUTREACH) Routine 10/29/2020 3:36 PM DRY DRUG WORKER HIV disease ([facility]/HCC) DIFFERENTIAL AUTO Routine 10/29/2020 3:3 6 PM DRY DRUG WORKER HIV disease (CMS/HCC) COMPREHENSIVE METABOLIC PANEL WITHOUT GLUCOSE (OUTREACH) Routine 10/29/2020 3:36 PM DRY DRUG WORKER HIV disease (CMS/HCC) COMPREHENSIVE METABOLIC PANEL (OUTREACH) Routine 10/29/2020 3:36 PM DRY DRUG WORKER HIV disease (CMS/HCC) URINALYSIS AND REFLEX TO MICROSCOPIC AND CULTURE Routine 10/29/2020 3:36 PM DRY DRUG WORKER HIV disease (CMS/HCC) CBC WITH AUTO DIFFERENTIAL Routine 10/29/2020 3:36 PM DRY DRUG WORKER HIV disease (CMS/HCC) HEPATITIS C ANTIBODY Routine 10/29/2020 3:36 PM DRY DRUG WORKER HIV disease (CMS/HCC) HIV-1 RNA, QUANTITATIVE, PCR Routine 10/29/2020 3:36 PM DRY DRUG WORKER HIV disease (CMS/HCC) RPR Routine 10/29/2020 3:36 PM DRY DRUG WORKER HIV disease (CMS/HCC) URINALYSIS, MICROSCOPIC ONLY Routine 10/29/2020 3:36 PM DRY DRUG WORKER HIV disease (CMS/HCC) T-HELPER CELLS (CD4) COUNT Routine 10/29/2020 3:36 PM DRY DRUG WORKER HIV disease (CMS/HCC) HEMOGLOBIN A1C Routine 10/29/2020 3:36 PM DRY DRUG WORKER HIV disease (CMS/HCC) LIPID PANEL Routine 10/29/2020 3:36 PM DRY DRUG WORKER HIV disease (CMS/HCC) documented in this encounter Results * (ABNORMAL) Urinalysis, microscopic only (10/29/2020 3:36 PM DRY DRUG WORKER) WBC, ur 0-5 0 - 5 /HPF [facility] RBC, ur 0-2 0 - 2 /HPF [facility] Mucous, ur Present(A) [facility] Culture Reflex Comment Reflex conditions for urine culture (WBC >10) not met. [facility] Urine, clean voided 10/29/2020 3:36 PM DRY DRUG WORKER 10/29/2020 6:06 PM DRY DRUG WORKER Anne Barros NP LAB URINE ORDERABLES F inal Result [facility] [place] [address] * (ABNORMAL) Differential, auto (10/29/2020 3:36 PM DRY DRUG WORKER) Neutrophil abs 1.1(L) 1.7 - 6.5 K/cumm [facility] Imm gran abs 0.0 0.0 - 0.1 K/cumm [facility] Lymphocyte abs 1.6 0.8 - 3.3 K/cumm [facility] Monocyte abs 0.3 0.2 - 0.8 K/cumm [facility] Eosinophil abs 0.1 0.0 - 0.5 K/cumm [facility] Basophil abs 0.0 0.0 - 0.1 K/cumm [facility] Neutrophil pct 34.2 % [facility] Comment: Interpretive Data Percent cell count reference ranges are not reported, since discordance with absolute values may lead to misinterpretation of CBC data. Current Interpretive Data was last revised on 2018. Imm gran pct 0.3 % [facility] Comment: Interpretive Data Percent cell count reference ranges are not reported, since discordance with absolute values may lead to misinterpretation of CBC data. Current Interpretive Data was last revised on 2018. Lymphocyte pct 51.3 % [facility] Comment: Interpretive Data Percent cell count reference ranges are not reported, since discordance with absolute values may lead to misinterpretation of CBC data. Current Interpretive Data was last revised on 2018. Monocyte pct 9.8 % [facility] Comment: Interpretive Data Percent cell count reference ranges are not reported, since discordance with absolute values may lead to misinterpretation of CBC data. Current Interpretive Data was last revised on 2018. Eosinophil pct 3.8 % [facility] Comment: Interpretive Data Percent cell count reference ranges are not reported, since discordance with absolute values may lead to misinterpretation of CBC data. Current Interpretive Data was last revised on 2018. Basophil pct 0.6 % [facility] Comment: Interpretive Data Percent cell count reference ranges are not reported, since discordance with absolute values may lead to misinterpretation of CBC data. Current Interpretive Data was last revised on 2018. Blood specimen (specimen) 10/29/2020 3:36 PM DRY DRUG WORKER 10/29/2020 6:06 PM DRY DRUG WORKER Anne Barros NP LAB BLOOD ORDERABLES F inal Result Performing Organization Address [facility] de Phone Number [facility] Department [place] [employer] [place] [address] * Glucose, random (Outreach) (10/29/2020 3:36 PM DRY DRUG WORKER) Glucose 99 70 - 199 mg/dL [facility] Comment: Interpretive Data Fasting glucose >/= 126 [...] interpretive data was last revised 2017. Blood specimen (specimen) 10/29/2020 3:36 PM DRY DRUG WORKER 10/29/2020 6:07 PM DRY DRUG WORKER Anne Barros NP LAB BLOOD ORDERABLES F inal Result Performing Organization Address [facility] Co de Phone Number [facility] Department [place] [employer] [place] [address] * Comprehensive metabolic panel, without glucose (Outreach) (10/29/2020 3:36 PM DRY DRUG WORKER) [facility] Sodium 140 135 - 145 mmol/L [facility] Potassium, pl 3.6 3.3 - 4.9 mmol/L [facility] Chloride 105 97 - 110 mmol/L [facility] CO2 26 22 - 32 mmol/L [facility] Anion gap 9 2 - 15 mmol/L [facility] BUN 12 8 - 25 mg/dL [facility] Creatinine 1.03 0.80 - 1.30 mg/dL [facility] Calcium 9.1 8.5 - 10.3 mg/dL [facility] Protein, pl 8.4 6.5 - 8.5 g/dL [facility] Albumin 4.7 3.5 - 5.0 g/dL [facility] Bilirubin, total 0.2 0.1 - 1.2 mg/dL [facility] Alk phos 66 40 - 130 Units/L [facility] AST 25 10 - 50 Units/L [facility] ALT 29 7 - 55 Units/L [facility] Blood specimen (specimen) 10/29/2020 3:36 PM DRY DRUG WORKER 10/29/2020 6:06 PM DRY DRUG WORKER us Anne Barros NP LAB BLOOD ORDERABLES F inal Result [facility] Department [place] [address] * (ABNORMAL) HIV-1 RNA PCR, quantitative (10/29/2020 3:36 PM DRY DRUG WORKER) [facility] HIV-1 RNA Detected( A) [facility] Comment: Interpretive Data: The quantifiable range of this assay is 20 copies/mL to 10,000,000 copies/mL (1.30 log copies/mL to 7.00 log copies/mL). ??Testing was performed by the [employer] AmpliPrep/[employer]ELS TaqMan HIV-1 Test version 2.0 ([employer] Testing performed at [facility] Current Interpretive Data was last revised on 2015. HIV-1 RNA, copies/mL 235,617 copies/mL [facility] HIV-1 RNA, log 5.37 log cps/mL [facility] Blood specimen (specimen) 10/29/2020 3:36 PM DRY DRUG WORKER 10/29/2020 7:43 PM DRY DRUG WORKER us Anne Barros NP LAB MICROBIOLOGY - GEN ERAL ORDERABLES Final Result [facility] Department [place] [address] * (ABNORMAL) Lipid panel (10/29/2020 3:36 PM DRY DRUG WORKER) Cholesterol 200(H) 30 - 199 mg/dL [facility] Comment: Interpretive Data Ages < or = [...] Data was last revised on 2018. Triglycerides 259(H) <=149 mg/dL [facility] Comment: Interpretive Data Ages < or = [...] Data was last revised on 2018. HDL 37(L) >=40 mg/dL [facility] Comment: Interpretive Data Ages < or = [...] was last revised on 2018. LDL, calculated 111 <=129 mg/dL [facility] Comment: Interpretive Data Ages < or = [...] was last revised on 2018. Non-HDL Cholesterol 163 mg/dL [facility] Comment: Interpretive Data Ages < or = [...] last revised on 2018. Chol/HDL ratio 5 [facility] Blood specimen (specimen) 10/29/2020 3:36 PM DRY DRUG WORKER 10/29/2020 6:06 PM DRY DRUG WORKER Anne Barros NP LAB BLOOD ORDERABLES F inal Result Performing Organization Address [facility] de Phone Number [facility] Department [place] [address] * N. gonorrhoeae/C. trachomatis Amplification Urine (10/29/2020 3:36 PM DRY DRUG WORKER) C. trachomatis Not Detected Not Detected [facility] N. gonorrhoeae Not Detected Not Detected [facility] Comment: Interpretive Data Testing performed by [employer]. This assay detects Chlamydia trachomatis and Neisseria gonorrhoeae by nucleic acid amplification testing (NAAT). This test is approved by the [facility] Food and Drug Administration and the performance characteristics have been verified by the performing laboratory. Current Interpretive Data was last revised on 2020. Urine (None) 10/29/2020 3:36 PM DRY DRUG WORKER 10/29/2020 7:32 PM DRY DRUG WORKER Anne Barros NP LAB MICROBIOLOGY - GEN ERAL ORDERABLES Final Result Performing Organization Address [facility] de Phone Number [facility] Department [place] [address] * RPR (10/29/2020 3:36 PM DRY DRUG WORKER) Pathologist [facility] RPR Nonreactive Nonreactive [facility] Blood specimen (specimen) 10/29/2020 3:36 PM DRY DRUG WORKER 10/29/2020 6:07 PM DRY DRUG WORKER Anne Barros NP LAB MICROBIOLOGY - GEN ERAL ORDERABLES Final Result [facility] Department [place] [address] * T-SPOT.TB (10/29/2020 3:36 PM DRY DRUG WORKER) [facility] T-SPOT.TB Negative SeeBelow [facility] Comment: Normal Value: Negative A negative test [...] quantitative test. T-SPOT.TB Panel A Spot Count 1 [facility] T-SPOT.TB Panel B Spot Count 2 [facility] T-SPOT.TB Negative Control Passed [facility] T-SPOT.TB Positive Control Passed [facility] Comment: Test Performed at: [facility], [place], [place] ??[address] ? CONOR WALL MD,PHD Blood specimen (specimen) 10/29/2020 3:36 PM DRY DRUG WORKER 10/29/2020 6:11 PM DRY DRUG WORKER Anne Barros NP LAB MICROBIOLOGY - GEN ERAL ORDERABLES Final Result Performing Organization Address [facility] de Phone Number [facility] [place] [address] * (ABNORMAL) T-helper cells (CD4) count (10/29/2020 3:36 PM DRY DRUG WORKER) Pathologist [facility] CD4 pct 15(L) 31 - 64 % [facility] Comment:Repeated and verifie d. CD4 Absolute 242(L) 365 - 1,294 cells/mcL [facility] Comment:Repeated and verifie d. Blood specimen (specimen) 10/29/2020 3:36 PM DRY DRUG WORKER 10/29/2020 6:07 PM DRY DRUG WORKER Anne Barros NP LAB BLOOD ORDERABLES F inal Result Performing Organization Address [facility] de Phone Number [facility] [place] [address] * (ABNORMAL) Urinalysis reflex to microscopic and culture Urine, clean voided (10/29/2020 3:36 PM DRY DRUG WORKER) Pathologist [facility] [place] Color, ur Yellow Yellow [facility] Clarity, ur Clear Clear [facility] Specific gravity, ur 1.023 1.010 - 1.025 [facility] pH, urine 6 [facility] Protein, ur ql Negative Negative [facility] Glucose, ur ql Negative Negative [facility] Ketones, ur Negative Negative [facility] Bilirubin, ur Negative Negative [facility] Blood, ur Negative Negative [facility] Comment:Ascorbic acid identi fied in urine; possible false negative blood result. A microscopic exam will be added to identify RBCs. Urobilinogen, ur 2.0(A) <2.0 mg/dL [facility] Nitrite, ur Negative Negative [facility] Leukocyte esterase, ur Negative Negative [facility] UA reflex comment Reflex to microscopic UA will be performed. [facility] Urine, clean voided 10/29/2020 3:36 PM DRY DRUG WORKER 10/29/2020 6:06 PM DRY DRUG WORKER Narrative [facility] - 10/29/2020 6:17 PM DRY DRUG WORKER ?? Urine pH is affected by diet, medications, systemic acid-base disturbances, and renal tubular function. ??pH may affect urinary stone formation. ??For example, urine pH below 6.0 may help reduce the tendency for calcium phosphate stones and pH greater than 6.0 may reduce the tendency for uric acid stone formation. Source: [facility] [employer] [facility]. Last revised 11-22-2017 Anne Barros NP LAB MICROBIOLOGY - GEN ERAL ORDERABLES Final Result Performing Organization Address [facility] Co de Phone Number [facility] [place] [employer] [place] [address] * Hepatitis C antibody (10/29/2020 3:36 PM DRY DRUG WORKER) Pathologist [facility] Hep C Ab Nonreactive Nonreactive [facility] Comment:Antibodies to HCV no t detected. Does NOT exclude the possibility of recent exposure to HCV. Blood specimen (specimen) 10/29/2020 3:36 PM DRY DRUG WORKER 10/29/2020 6:06 PM DRY DRUG WORKER Anne Barros NP LAB MICROBIOLOGY - GEN ERAL ORDERABLES Edited Result - Final Performing Organization Address [facility] de Phone Number [facility] [place] [address] * (ABNORMAL) Hemoglobin A1c (10/29/2020 3:36 PM DRY DRUG WORKER) Hgb A1C 6.0(H) 4.0 - 5.6 % [facility] Estimated Average Glucose 126 mg/dL [facility] Comment: The ADA recommends reporting an estimated Average Glucose (eAG) with all Hemoglobin A1c results using the equation derived from a study of 507 normal and diabetic adults. ??Minority populations were underrepresented and children were not included. ?? (Diabetes Care 31:2302-8908, 2008). ??The eAG is not equivalent to a fasting glucose. Blood specimen (specimen) 10/29/2020 3:36 PM DRY DRUG WORKER 10/29/2020 6:06 PM DRY DRUG WORKER Anne Barros NP LAB BLOOD ORDERABLES F inal Result Performing Organization Address [facility] de Phone Number [facility] Department [place] [employer] [address] * (ABNORMAL) CBC with auto differential (10/29/2020 3:36 PM DRY DRUG WORKER) [facility] WBC 3.2(L) 3.8 - 9.9 K/cumm [facility] [facility] Hgb 12.1(L) 13.0 - 17.5 g/dL [facility] Hct 37.2(L) 38.9 - 50.3 % [facility] Plt 203 150 - 400 K/cumm [facility] MPV 10.3 9.1 - 12.3 fL [facility] RBC 4.54 4.30 - 5.80 M/cumm [facility] MCV 81.9 81.3 - 96.4 fL [facility] MCH 26.7(L) 27.1 - 33.3 pg [facility] MCHC 32.5 32.3 - 35.7 g/dL [facility] RDW CV 13.5 11.1 - 14.9 % [facility] RDW SD 40.3 35.7 - 48.1 fL [facility] NRBC abs 0.00 0.00 - 0.01 K/cumm [facility] Blood specimen (specimen) 10/29/2020 3:36 PM DRY DRUG WORKER 10/29/2020 6:06 PM DRY DRUG WORKER Anne Barros NP LAB BLOOD ORDERABLES F inal Result Performing Organization Address [facility]/ZIP Co de Phone Number [facility] Department [place] [address] documented in this encounter Visit Diagnoses Diagnosis HIV disease (CMS/HCC) (HCC)- Primary Human immunodeficiency virus [HIV] disease Long-term use of high-risk medication documented in this encounter Discontinued Medications Medication Sig Discontinue Reason Start Date End Da te PREZISTA 800 mg tablet TAKE ONE TABLET BY MOUTH ONCE DAILY. Reorder 11/13/2019 10/29/2020 GENVOYA [phone] mg tablet TAKE ONE TABLET BY MOUTH ONCE DAILY WITH FOOD. Reorder 11/14/2019 10/29/2020 documented as of this encounter Orders Immunization/Injection Count Last Ordered Date First Ordered Date FLU VACCINE MDCK QUAD PF 4Y+ IM - FLUCELVAX 1 12/09/2020 documented in this encounter Care Teams Telecommunications Specialist Relationship Specialty Start Date End Date Gucci Vilchis MD PCP - General 04/16/17 08/08/22 [facility] Print Binding Worker 10/30/18 12/08/21 documented as of this encounter
--- OUTSIDE RECORDS SUMMARY | 2024-11-22 10:54 | XMS_ITS | Encounter Summary ---
Author Organization [facility] Address [address] [facility] [address] [place] [address] Phone Care Team Providers Care Therapy Aide Name Role Phone Gucci Vilhcis MD Primary Care Provider [phone] Reason for Visit * Reason Comments Follow-up HIV Positive/AIDS Encounter Details Date Type Department Care Team (Latest Contact Info) Description 10/04/2021 10:40 AM VP DELIVERY Office Visit [facility] Infectious Diseases [address] [place] [address] [address] [place] [address] Antoinette Riley PA [address] [address] HIV disease (CMS/HCC) (HCC) (Primary Dx); On highly active antiretroviral therapy (HAART); Routine screening for STI (sexually transmitted infection); Allergy, subsequent encounter; Colon cancer screening Social History Tobacco Use Types Packs/Day Years Used Date Smoking Tobacco: Never Smokeless Tobacco: Never Sex and Gender Information Value Date Recorded Sex Assigned at Not on file Legal Sex Male 7:55 PM VP DELIVERY Gender Identity Not on file Sexual Orientation Not on file documented as of this encounter Last Filed Vital Signs Vital Sign Reading Time Taken Comments Blood Pressure 113/79 10/04/2021 10:51 AM VP DELIVERY Pulse 76 10/04/2021 10:51 AM VP DELIVERY Temperature 36.7 ??C (98 ??F) 10/04/2021 10: 51 AM VP DELIVERY Respiratory Rate - - Oxygen Saturation - - Inhaled Oxygen Concentration - - Weight 101.2 kg (223 lb 1.6 oz) 021 10:51 AM VP DELIVERY Height 182.9 cm (6') 10/04/2021 10:51 AM VP DELIVERY Body Mass Index 30.26 10/04/2021 10:51 AM VP DELIVERY documented in this encounter Ordered Prescriptions Prescription Sig Dispense Quantity Refills Last Filled Start Date End Date flunisolide (NASALIDE) 25 mcg (0.025 %) spray,non-aerosolIn dications:Allergy, subsequent encounter Administer 2 sprays into each nostril 2 (two) times a day 25 mL 3 10/05/2021 COVID-19 mRNA,[id number] (Pfizer COVID-19 Vaccine, EUA,) 30 mcg/0.3 mL suspension for reconstitution Inject 0.3 mL into the muscle as instructed once for 1 dose 0.3 mL 10/05/2021 1 beclomethasone (BECONASE-AQ) 42 mcg (0.042 %) nasal sprayIndications:Al jignesh, subsequent encounter Administer 2 sprays into each nostril 2 (two) times a day Dose is for each nostril. 25 g 3 10/04/2021 1 beclomethasone (QNASL) 80 mcg/actuation HFA aerosol inhalerIndications: Allergic Rhinitis Administer 2 sprays into each nostril daily 8.7 g 3 10/04/2021 1 cetirizine (ZyrTEC) 10 mg tabletIndications:H IV disease (CMS/HCC) (HCC),Allergy, subsequent encounter Take 1 tablet (10 mg total) by mouth daily 30 tablet 5 10/04/2021 3 COVID-19 mRNA,[id number] (Pfizer COVID-19 Vaccine, EUA,) 30 mcg/0.3 mL suspension for reconstitutionIndic ations:COVID-19 vaccination Inject 0.3 mL into the muscle as instructed once for 1 dose 0.3 mL 10/04/2021 1 documented in this encounter Progress Notes * Antoinette Riley PA - 10/04/2021 10:40 AM CST Subjective/Objective Patient ID: Dashawn Howell is a 50 y.o. male. Chief Complaint Follow-up and HIV Positive/AIDS HPI Mr. DASHAWN HOWELL is a??50??year old man initially diagnosed with HIV in 1998 by patient report. cART history includes Combivir/Sustiva, Truvada/ddI/Prezista/Norvir and Atripla. 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 He was extremely??busy??dueto COVID.??CD4 = 242 (15%) on 10/29/2020 and VL = 235,617 copies on 12/14/2020. Patent had completely stopped taking his medications because he did not want to take them intermittently and increase his risk for resistance. ?? When he came to clinic 12/14/2020, he was started on Symtuza/Tivicay instead of resuming Genvoya/Prezista. He is feeling well and is without complaints. He has been taking it every day. Denies any side effects. Labs 06/28/2021: CD4 = 266 (18%) and VL not detected. He requests refills of his allergy medication for periodic flares. ?? He smokes an occasional Black and Mild. Drinks occasionally. Denies use of any illicit drugs. Reports sex with female partners, but states he is not sexually active??at this time.??He declines triplescreening.? Review of Systems Constitutional: Negative for chills, [...] wound. Neurological: Negative for dizziness and headaches. Physical Exam Vitals reviewed. Constitutional: General: He is not in acute distress. HENT: Head: Normocephalic and atraumatic. Eyes: General: No scleral icterus. Conjunctiva/sclera: Conjunctivae normal. Cardiovascular: Rate and Rhythm: Normal rate and regular rhythm. Pulses: Normal pulses. Heart sounds: Normal heart sounds. Pulmonary: Effort: Pulmonary effort is normal. Breath sounds: Normal breath sounds. Abdominal: Palpations: Abdomen is soft. Tenderness: There is no abdominal tenderness. Musculoskeletal: General: Normal range of motion. Cervical back: Normal range of motion and neck supple. Skin: General: Skin is warm and dry. Neurological: General: No focal deficit present. Mental Status: He is alert and oriented to person, place, and time. Psychiatric: Mood and Affect: Mood normal. Behavior: Behavior normal. Vitals BP 113/79 (BP Location: Left arm, Patient Position: Sitting) Pulse 76 Temp 36.7 ??C (98 ??F) Ht 182.9 cm (6') Wt 101.2 kg (223 lb 1.6 oz) BMI 30.26 kg/m?? Immunization History Administered Date(s) Administered ??? Hep A, Adult 12/31/2012 ??? Hep A, Unspecified 12/31/2012 ??? Hep B Vaccine 06/02/2014 ??? Influenza, Quadrivalent, Cell Culture-based MDCK, Preservative Free, Antibiotic Free, Intramuscular 10/28/2019, 10/29/2020 ??? Influenza, Trivalent, Intramuscular 10/17/2011, 08/06/2012, 11/25/2013 ??? Influenza, Trivalent, Preservative Free, Intramuscular 08/16/2016 ??? Moderna SARS-CoV-2 Vaccination 01/01/2021, 01/29/2021 ??? PPD TEST 10/26/2010, 12/12/2011, 12/31/2012 ??? Pfizer SARS-CoV-2 Vaccination (12+ yrs) 10/05/2021 ??? Pneumococcal Conjugate PCV 13 06/02/2014 ??? Pneumococcal Polysaccharide PPV23 12/31/2012, 06/28/2021 ??? Tdap 07/05/2018 Current Outpatient Medications: ??? cetirizine (ZyrTEC) 10 mg tablet ??? thbixrtky-iqro-eaxdo-tenof ala (Symtuza) [phone] mg tablet ??? dolutegravir (TIVICAY) 50 mg tablet ??? flunisolide (NASALIDE) 25 mcg (0.025 %) spray,non-aerosol No Known Allergies STD SCREENING -SYPHILIS Lab Results Component Value Date LABRPR Nonreactive 06/28/2021 LABRPR Nonreactive 10/29/2020 LABRPR Nonreactive 10/28/2019 -MICRO including GONORRHEA, CHLAMYDIA AND TRICHOMONAS Lab [...] trachomatis rRNA Negative for: Neisseria gonorrhoeae rRNA [id number] NOT DETECTED 12/31/2012 [id number] NOT DETECTED 12/31/2012 [id number] NOT DETECTED 11/25/2013 [id number] NOT DETECTED 11/25/2013 No results found for: TRICHOMONU, TRICHOMONAS ANNUAL LABS AND SCREENING -TB SCREENING Lab Results Component Value Date IFNGAMMAREL Negative 07/05/2018 [id number] See Comment 08/16/2016 PPD Negative 10/29/2020 -LIPIDS [...] PAP No results found for: HIRSKHPVRNA, HPVG16, [id number], [id number] -PROSTATE CANCER SCREENING IF HIGH RISK Lab Results Component Value Date PSA 0.80 06/28/2021 BASELINE SCREENING -HEPATITIS A IMMUNITY STATUS Lab Results Component Value Date HAV Positive (A) 08/16/2016 -HEPATITIS B IMMUNITY STATUS Lab Results Component Value Date HEPBSAB Positive 08/16/2016 HEPBSAB 384 08/16/2016 -TOXOPLASMA IMMUNITY STATUS Lab Results Component Value Date TOXOIGG Negative 12/05/2018 [id number] < OR = 0.90 11/25/2013 -CMV IMMUNITY STATUS No results found for: CMVIGG -G6PD LEVEL (NORMAL >4.6) Lab Results Component Value Date G6PD Normal 08/16/2016 -[id number] STATUS Lab Results Component Value Date [id number] Negative 11/25/2013 -COLONOSCOPY- needs referral Assessment/Plan This??is a??50??year old man??presenting to ID clinic for routine HIV follow up. He restarted cART in Dec 2020: Symtuza/Tivicay after being off Genvoya/Prezista since September 2020. He is feeling well and reports 100% adherence to his regimen. Diagnoses and all orders for this visit: HIV disease (CMS/HCC) (HCC) (B20) (Primary) Assessment & Plan: Continue Symtuza and Tivicay 100% adherence encouraged to maintain viral suppression and prevent resistance. Undetectable = untransmittable. Counseling for risk reduction, adherence and pre-conception provided. 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 Orders: - CBC with auto differential; Future - Comprehensive metabolic panel (Outreach); Future - T-helper cells (CD4) count; Future - Comprehensive metabolic panel, without glucose (Outreach) - Glucose, random (Outreach) - Differential, auto - eGFR Routine screening for STI (sexually transmitted infection) (Z11.3) Allergy, subsequent encounter (T78.40XD) - cetirizine (ZyrTEC) 10 mg tablet; Take 1 tablet (10 mg total) by mouth daily - flunisolide (NASALIDE) 25 mcg (0.025 %) spray,non-aerosol; Administer 2 sprays into each nostril 2 (two) times a day Colon cancer screening (Z12.11) - Direct Scheduling Case Request: COLONOSCOPY Other orders - COVID-19 mRNA,[id number] (Storm Player COVID-19 Vaccine, EUA,) 30 mcg/0.3 mL suspension for reconstitution; Inject 0.3 mL into the muscle as instructed once for 1 dose RTC 3 months The supervising physician present in this office suite for this Physician Grinding Room Supervisor, Antoinette Riley PA-C is Dr. SANTOS May. DELIVERY documented in this encounter Miscellaneous Notes * Assessment & Plan Note - Antoinette Riley PA - 10/06/2021 8:04 PM VP DELIVERY Associated Problem(s): On highly active antiretroviral therapy (HAART) Routine lab monitoring on senior care HIV meds to assess for drug toxicity and efficacy. DELIVERY * Assessment & Plan Note - Antoinette Riley PA - 10/06/2021 8:03 PM VP DELIVERY Associated Problem(s): HIV infection (HCC) Continue Symtuza and Tivicay 100% adherence encouraged to maintain viral suppression and prevent resistance. Undetectable = untransmittable. Counseling for risk reduction, adherence and pre-conception provided. DELIVERY documented in this encounter Plan of Treatment Not on file documented as of this encounter Procedures Procedure Name Priority Date/Time Associated Diagnosis Comments GLUCOSE, RANDOM (OUTREACH) Routine 10/04/2021 11:44 AM VP DELIVERY HIV disease (CMS/HCC) (HCC) On highly active antiretroviral therapy (HAART) EGFR Routine 10/04/2021 11:44 AM VP DELIVERY HIV disease (CMS/HCC) (HCC) On highly active antiretroviral therapy (HAART) DIFFERENTIAL AUTO Routine 10/04/2021 11: 44 AM VP DELIVERY HIV disease (CMS/HCC) (HCC) On highly active antiretroviral therapy (HAART) COMPREHENSIVE METABOLIC PANEL WITHOUT GLUCOSE (OUTREACH) Routine 10/04/2021 11:44 AM VP DELIVERY HIV disease (CMS/HCC) (HCC) On highly active antiretroviral therapy (HAART) COMPREHENSIVE METABOLIC PANEL (OUTREACH) Routine 10/04/2021 11:44 AM VP DELIVERY HIV disease (CMS/HCC) (HCC) On highly active antiretroviral therapy (HAART) CBC WITH AUTO DIFFERENTIAL Routine 10/04/2021 11:44 AM VP DELIVERY HIV disease (CMS/HCC) (HCC) On highly active antiretroviral therapy (HAART) T-HELPER CELLS (CD4) COUNT Routine 10/04/2021 11:44 AM VP DELIVERY HIV disease (CMS/HCC) (HCC) On highly active antiretroviral therapy (HAART) documented in this encounter Results * eGFR (10/04/2021 11:44 AM VP DELIVERY) eGFR See Comment 90 - 130 [facility] Comment: Credited, mislabeled, invalid result. Per Lennie Castelan. Interpretive Data Reference Interval Normal ?>/= 90 mL/min/1.73m2 Mildly decreased* ? 60 - 89 mL/min/1.73m2 Mildly to moderately decreased ?45 - 59 mL/min/1.73m2 Moderately to severely decreased ??30 - 44 mL/min/1.73m2 Severely decreased ?15 - 29 mL/min/1.73m2 Kidney Failure ?< 15 ??mL/min/1.73m2 *Relative to young adult level Estimated glomerular filtration rate is determined by the CKD-EPI equation recommended by the National Kidney Foundation (KDIGO 2012 Clinical Practice Guideline for the Evaluation and Management of Chronic Kidney Disease. Kidney Intnl Suppl Nov 2012;3:1). The CKD-EPI equation should not be used for patients with unstable renal function and has not been validated in children and those over 70. Current interpretive data was last reviewed 2020 Blood 10/04/2021 11:4 4 AM VP DELIVERY 10/04/2021 5:49 PM VP DELIVERY Antoinette GANNON LAB BLOOD ORDERABLES Edite d Result - Final Performing Organization Address City/State/[facility] Co de Phone Number [facility] Department [place] [address] * Differential, auto (10/04/2021 11:44 AM VP DELIVERY) Neutrophil abs 1.9 1.7 - 6.5 K/cumm [facility] Imm gran abs 0.0 0.0 - 0.1 K/cumm [facility] Lymphocyte abs 2.2 0.8 - 3.3 K/cumm [facility] Monocyte abs 0.5 0.2 - 0.8 K/cumm [facility] Eosinophil abs 0.3 0.0 - 0.5 K/cumm [facility] Basophil abs 0.0 0.0 - 0.1 K/cumm [facility] Neutrophil pct 39.1 % [facility] Comment: Interpretive Data Percent cell count reference ranges are not reported, since discordance with absolute values may lead to misinterpretation of CBC data. Current Interpretive Data was last revised on 2018. Imm gran pct 0.4 % [facility] Comment: Interpretive Data Percent cell count reference ranges are not reported, since discordance with absolute values may lead to misinterpretation of CBC data. Current Interpretive Data was last revised on 2018. Lymphocyte pct 44.2 % [facility] Comment: Interpretive Data Percent cell count reference ranges are not reported, since discordance with absolute values may lead to misinterpretation of CBC data. Current Interpretive Data was last revised on 2018. Monocyte pct 9.3 % [facility] Comment: Interpretive Data Percent cell count reference ranges are not reported, since discordance with absolute values may lead to misinterpretation of CBC data. Current Interpretive Data was last revised on 2018. Eosinophil pct 6.2 % [facility] Comment: Interpretive Data Percent cell count reference ranges are not reported, since discordance with absolute values may lead to misinterpretation of CBC data. Current Interpretive Data was last revised on 2018. Basophil pct 0.8 % [facility] Comment: Interpretive Data Percent cell count reference ranges are not reported, since discordance with absolute values may lead to misinterpretation of CBC data. Current Interpretive Data was last revised on 2018. Blood 10/04/2021 11:4 4 AM VP DELIVERY 10/04/2021 5:44 PM VP DELIVERY us Antoinette GANNON LAB BLOOD ORDERABLES Final Result [facility] Department [place] [address] * Glucose, random (Outreach) (10/04/2021 11:44 AM VP DELIVERY) Glucose See Comment 70 - 199 mg/dL [facility] Comment: Credited, mislabeled, invalid result. Per Lennie Matchingtouch. Interpretive Data Fasting glucose >/= 126 mg/dl [...] interpretive data was last revised 2017. Blood 10/04/2021 11:4 4 AM VP DELIVERY 10/04/2021 5:44 PM VP DELIVERY Antoinette GANNON LAB BLOOD ORDERABLES Edite d Result - Final [facility] Department [place] [address] * Comprehensive metabolic panel, without glucose (Outreach) (10/04/2021 11:44 AM VP DELIVERY) Sodium See Comment 135 - 145 mmol/L [facility] Comment:Credited, mislabeled , invalid result. Per Lennie Matchingtouch. Potassium, pl See Comment 3.3 - 4.9 mmol/L [facility] Comment:Credited, mislabeled , invalid result. Per Lennie Matchingtouch. Chloride See Comment 97 - 110 mmol/L [facility] Comment:Credited, mislabeled , invalid result. Per Lennie Matchingtouch. CO2 See Comment 22 - 32 mmol/L [facility] Comment:Credited, mislabeled , invalid result. Per Lennie Matchingtouch. Anion gap See Comment 2 - 15 mmol/L [facility] Comment:Credited, mislabeled , invalid result. Per Lennie Matchingtouch. BUN See Comment 8 - 25 mg/dL [facility] Comment:Credited, mislabeled , invalid result. Per Lennie Matchingtouch. Creatinine See Comment 0.80 - 1.30 mg/dL [facility] Comment:Credited, mislabeled , invalid result. Per Lennie Matchingtouch. Calcium See Comment 8.5 - 10.3 mg/dL [facility] Comment:Credited, mislabeled , invalid result. Per Lennie Matchingtouch. Protein, pl See Comment 6.5 - 8.5 g/dL [facility] Comment:Credited, mislabeled , invalid result. Per Lennie Matchingtouch. Albumin See Comment 3.5 - 5.0 g/dL [facility] Comment:Credited, mislabeled , invalid result. Per Lennie Matchingtouch. Bilirubin, total See Comment 0.1 - 1.2 mg/dL [facility] Comment:Credited, mislabeled , invalid result. Per Lennie Matchingtouch. Alk phos See Comment 40 - 130 Units/L [facility] Comment:Credited, mislabeled , invalid result. Per Lennie Matchingtouch. AST See Comment 10 - 50 Units/L [facility] Comment:Credited, mislabeled , invalid result. Per Lennie Matchingtouch. ALT See Comment 7 - 55 Units/L [facility] Comment:Credited, mislabeled , invalid result. Per Lennie Matchingtouch. Blood 10/04/2021 11:4 4 AM VP DELIVERY 10/04/2021 5:44 PM VP DELIVERY Antoinette GANNON LAB BLOOD ORDERABLES Edite d Result - Final [facility] Department [place] [address] * T-helper cells (CD4) count (10/04/2021 11:44 AM VP DELIVERY) CD4 pct See Comment 31 - 64 % [facility] Comment:Credited, mislabeled , invalid result CD4 Absolute See Comment 365 - 1294 cells/mcL [facility] Comment:Credited, mislabeled , invalid result Blood 10/04/2021 11:4 4 AM VP DELIVERY 10/04/2021 5:44 PM VP DELIVERY Antoinette GANNON LAB BLOOD ORDERABLES Edite d Result - Final Performing Organization Address [facility] Co de Phone Number [facility] Department [place] [address] * (ABNORMAL) CBC with auto differential (10/04/2021 11:44 AM VP DELIVERY) WBC 4.9 3.8 - 9.9 K/cumm [facility] Hgb 12.8(L) 13.0 - 17.5 g/dL [facility] Hct 39.7 38.9 - 50.3 % [facility] Plt 304 150 - 400 K/cumm [facility] MPV 10.3 9.1 - 12.3 fL [facility] RBC 4.64 4.30 - 5.80 M/cumm [facility] MCV 85.6 81.3 - 96.4 fL [facility] MCH 27.6 27.1 - 33.3 pg [facility] MCHC 32.2(L) 32.3 - 35.7 g/dL [facility] RDW CV 13.8 11.1 - 14.9 % [facility] RDW SD 42.9 35.7 - 48.1 fL [facility] NRBC abs 0.00 0.00 - 0.01 K/cumm [facility] Blood 10/04/2021 11:4 4 AM VP DELIVERY 10/04/2021 5:44 PM VP DELIVERY Antoinette GANNON LAB BLOOD ORDERABLES Final Result Performing Organization Address [facility] Co de Phone Number [facility] Department [place] [address] documented in this encounter Visit Diagnoses Diagnosis HIV disease (CMS/HCC) (HCC)- Primary Human immunodeficiency virus [HIV] disease On highly active antiretroviral therapy (HAART) Routine screening for STI (sexually transmitted infection) Screening examination for venereal disease Allergy, subsequent encounter Colon cancer screening Special screening for malignant neoplasms, colon documented in this encounter Discontinued Medications Medication Sig Discontinue Reason Start Date End Da te beclomethasone (QNASL) 80 mcg/actuation HFA aerosol inhalerIndications:Cesar rgic Rhinitis Administer 2 sprays into each nostril daily 10/04/2021 10/04/2021 beclomethasone (BECONASE-AQ) 42 mcg (0.042 %) nasal sprayIndications:Allerg y, subsequent encounter Administer 2 sprays into each nostril 2 (two) times a day Dose is for each nostril. Formulary change 10/04/2021 10/05/2021 COVID-19 mRNA,[id number] (Storm Player COVID-19 Vaccine, EUA,) 30 mcg/0.3 mL suspension for reconstitutionIndicatio ns:COVID-19 vaccination Inject 0.3 mL into the muscle as instructed once for 1 dose Error 10/04/2021 10/05/2021 documented as of this encounter Orders Case Request Count Last Ordered Date First Orde red Date GI DIRECT ACCESS CASE REQUEST 1 10/06/2021 documented in this encounter Care Teams Therapy Aide Relationship Specialty Start Date End Date Gucci Vilchis MD PCP - General 04/16/17 08/08/22 [facility] Bulldozer Mechanic 10/30/18 12/08/21 documented as of this encounter
--- OUTSIDE RECORDS SUMMARY | 2024-11-22 10:54 | XMS_ITS | Encounter Summary ---
Author Organization [facility] Address [address] [facility] [address] [place] [address] Phone Care Team Providers Care Residential Electrician Name Role Phone Gucci Vilchis MD Primary Care Provider [phone] Reason for Visit * Reason Comments HIV Positive/AIDS Follow-up * Consultation (Routine) - Canceled Specialty Diagnoses / Procedures Referred By Markell tong Referred To Contact Infectious Diseases Diagnoses HIV disease (CMS/HCC) (HCC) Be Knight PA Phone: tel: fax: [facility] (All Locations) Referral ID Status Reason Start Date Expiration Date Visits Requested Visits Authorized [id number] Canceled Specialty Services Required 03/24/2020 10/03/2021 99 [phone] Encounter Details Date Type Department Care Team (Late st Contact Info) Description 04/13/2020 10:40 AM CDT Office Visit [facility] Infectious Diseases [address] [place] [address] [address] [place] [id number] Antoinette Riley PA 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 male. Chief Complaint HIV Positive/AIDS and Follow-up This was a telemedicine visit with Dashawn Howell alone which took place via Telephone. During the visit, I was located at Infectious Disease Clinic in the [facility] and the patient was located at his home. The session started at 1041 and ended at 1046. The patient has been informed that the visit may not be secure and acknowledged the information. I have explained the option of participating in a telephone visit during the [address] to the patient. After being given an opportunity to ask questions about and discuss this type of visit, the patient verbally consented to proceeding with the telephone visit. The patient understands that this service replaces an office visit and they may be billed and/or responsible for any applicable copayments. TERESSA Hollis HPI Mr. DASHAWN HOWELL is a 49 year old man initially diagnosed with HIV in 1998 by patient report. cART history includes Combivir/Sustiva, Truvada/ddI/Prezista/Norvir and Atripla. Past Genotypes: November 2010- ??M184I/M, K103N, L100I/L, and P225H/P; April 2017- K103N, P225H. He is currently on Genvoya/Prezista, Oct??2019: CD4 = 442 (22%), VL??= 469 copies. Repeat VL 12/2019 = 63 copies. ? Patient states he's Doing great! 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 Patient states his health is doing fine. He denies any recent exposures and at work, he wears masks and practices social distancing. He has no questions or concerns today. [...] Lab Results Component Value Date LABRPR Nonreactive 10/28/2019 LABRPR Non-Reactive 12/05/2018 LABRPR Nonreactive 07/05/2018 -MICRO including GONORRHEA, CHLAMYDIA AND TRICHOMONAS Lab [...] trachomatis rRNA Negative for: Neisseria gonorrhoeae rRNA [id number] NOT DETECTED 12/31/2012 [id number] NOT DETECTED 12/31/2012 [id number] NOT DETECTED 11/25/2013 [id number] NOT DETECTED 11/25/2013 No results found for: TRICHOMONU ANNUAL LABS AND SCREENING -TB SCREENING Lab Results Component Value Date IFNGAMMAREL Negative 07/05/2018 [id number] See Comment 08/16/2016 PPD Negative 10/28/2019 -LIPIDS Lab Results Component Value Date CHOL 224 (H) 10/28/2019 CHOL 294 (H) 07/05/2018 CHOL 202 (H) 04/16/2017 TRIG 121 10/28/2019 TRIG 140 07/05/2018 TRIG 82 04/16/2017 HDL 39 (L) 10/28/2019 HDL 51 07/05/2018 HDL 38 (L) 04/16/2017 LDL 178 (H) 08/16/2016 LDL 149 (H) 07/15/2015 CDRHIST 216 08/16/2016 CDRHIST 170 07/15/2015 LDLCALC 161 (H) 10/28/2019 LDLCALC 215 (H) 07/05/2018 LDLCALC 148 (H) 04/16/2017 NONHDLCHOL 185 10/28/2019 NONHDLCHOL 243 07/05/2018 NONHDLCHOL 164 04/16/2017 -GLYCEMIC CONTROL Lab Results Component Value Date HGBA1C 6.0 (H) 10/28/2019 HGBA1C 5.6 07/05/2018 HGBA1C 5.7 12/04/2016 -HEPATITIS C SCREENING Lab Results Component Value Date HEPCAB Nonreactive 10/28/2019 -IF ON TDF, SCREENING FOR PROTEINURIA Lab Results Component Value Date PROTURQL Negative 10/28/2019 PROTURQL Negative 07/05/2018 PROTURQL Negative 12/04/2016 -HPV SCREENING ON CERVICAL PAP No results found for: HIRSKHPVRNA, HPVG16, [id number], [id number] -PROSTATE CANCER SCREENING IF HIGH RISK No results found for: PSA BASELINE SCREENING -HEPATITIS A IMMUNITY STATUS Lab Results Component Value Date HAV Positive (A) 08/16/2016 -HEPATITIS B IMMUNITY STATUS Lab Results Component Value Date HEPBSAB Positive 08/16/2016 HEPBSAB 384 08/16/2016 -TOXOPLASMA IMMUNITY STATUS Lab Results Component Value Date TOXOIGG Negative 12/05/2018 [id number] < OR = 0.90 11/25/2013 -CMV IMMUNITY STATUS No results found for: CMVIGG -G6PD LEVEL (NORMAL >4.6) Lab Results Component Value Date G6PD Normal 08/16/2016 -[id number] STATUS Lab Results Component Value Date [id number] Negative 11/25/2013 Assessment/Plan This is a 49 year old man initially diagnosed with HIV in 1998 by patient report. He is currently on Genvoya/Prezista, Dec??2019: CD4 = 442 (22%), VL??= 469 copies. Repeat VL 12/2019 = 63 copies. He is feeling well. ?? Diagnoses and all orders for this visit: HIV disease (CMS/HCC) (B20) (Primary) Assessment & Plan: Continue Genvoya/Prezista with 100% adherence encouraged to maintain viral suppression and prevent resistance. Undetectable = untransmittable. Risk reduction counseling and adherence counseling provided. Orders: - CBC with auto differential; Future - Comprehensive metabolic panel (Outreach); Future - T-helper cells (CD4) count; Future - HIV-1 RNA PCR, quantitative; Future - RPR; Future - N. gonorrhoeae/C. trachomatis Amplification Urine; Future Long-term use of high-risk medication (Z79.899) Assessment & Plan: Routine lab monitoring on shelter HIV meds to assess for drug toxicity and efficacy. Orders: - CBC with auto differential; Future - Comprehensive metabolic panel (Outreach); Future - T-helper cells (CD4) count; Future - HIV-1 RNA PCR, quantitative; Future Routine screening for STI (sexually transmitted infection) (Z11.3) - RPR; Future - N. gonorrhoeae/C. trachomatis Amplification Urine; Future RTC 3 months The supervising physician present in this office suite for this Physician Linen Room Worker, Antoinette Riley PA-C is Dr. Bird May. documented in this encounter Miscellaneous Notes * Assessment & Plan Note - Antoinette Riley PA - 04/14/2020 11:17 AM CDT Associated Problem(s): On highly active antiretroviral therapy (HAART) Routine lab monitoring on doctor of podiatric medicine HIV meds to assess for drug toxicity and efficacy. * Assessment & Plan Note - Antoinette Riley PA - 04/14/2020 11:16 AM CDT Associated Problem(s): HIV infection (HCC) Continue Genvoya/Prezista with 100% adherence encouraged to maintain viral suppression and prevent resistance. Undetectable = untransmittable. Risk reduction counseling and adherence counseling provided. documented in this encounter Plan of Treatment Not on file documented as of this encounter Visit Diagnoses Diagnosis HIV disease (CMS/HCC) (HCC)- Primary Human immunodeficiency virus [HIV] disease Long-term use of high-risk medication Routine screening for STI (sexually transmitted infection) Screening examination for venereal disease documented in this encounter Care Teams Residential Electrician Relationship Specialty Start Date End Date Gucci Vilchis MD PCP - General 04/16/17 08/08/22 [facility] Technology Education Teacher 10/30/18 12/08/21 documented as of this encounter
--- OUTSIDE RECORDS SUMMARY | 2024-11-22 10:54 | XMS_ITS | Encounter Summary ---
Author Organization [facility] Address [address] [facility] [address] [place] [address] Phone Care Team Providers Care Funeral Pre Arrangement Specialist Name Role Phone Gucci Vilchis MD Primary Care Provider [phone] Encounter Details Date Type Department Care Team (Late st Contact Info) Description 12/09/2021 Telephone [facility] Infectious Diseases [address] [place] [phone] Sarbjit Becker, [facility] Social History Tobacco Use Types Packs/Day Years Used Date Smoking Tobacco: Never Smokeless Tobacco: Never Sex and Gender Information Value Date Recorded Sex Assigned at Not on file Legal Sex Male 7:55 PM CANDY 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 Y DECORATOR * Telephone Encounter - Adela Chance - 12/09/2021 2:42 PM CST Started PA through CMM Y DECORATOR * Telephone Encounter - Mine Luke [facility] - 12/09/2021 2:14 PM CST His prescription coverage is through [employer]. This is the info I have and it appears to be active. ID: [id number] Grp: [id number] Insurance Y DECORATOR * Telephone Encounter - Adela Chance - 12/09/2021 2:08 PM CST No big deal. I was just trying to get insurance info, because of course there isn't any in the chart. Y DECORATOR * Telephone Encounter - Adela Chance - 12/09/2021 2:08 PM CST Do you guys happen to have insurance info on this patient? There is nothing in his chart. Y DECORATOR * Telephone Encounter - Flora Humphries - 12/09/2021 2:06 PM CST Adela Gresham can follow up on this Y DECORATOR * Telephone Encounter - Adela Chance - 12/09/2021 1:15 PM CST No problem, Thank you for looking. Y DECORATOR * Telephone Encounter - Be Renner BS - 12/09/2021 1:02 PM CANDY DECORATOR Unfortunately, Kristine also could not locate any information on Mr. Solitario. Sorry! Y DECORATOR * Telephone Encounter - Adela Chance - 12/09/2021 11:43 AM CST Thanks! Y DECORATOR * Telephone Encounter - Be Renner BS - 12/09/2021 11:28 AM CANDY DECORATOR Called [email or web address] to inquire about patient's insurance. Was informed patient now makes too much money to enroll in [facility] [employer]. Sent a message to Kristine to see if she can locate any other information regarding insurance. Y DECORATOR * Telephone Encounter - Adela Chance - 12/09/2021 11:09 AM CST Thanks Be! Y DECORATOR * Telephone Encounter - Be Renner BS - 12/09/2021 11:00 AM CANDY DECORATOR Hello, I cannot tell if this patient has insurance because he lives in [place]. I am contacting manager department Kristine Linder to see if she can assist. If that doesn't work I'll call his CM agency. Y DECORATOR * Telephone Encounter - Adela Chance - 12/09/2021 10:49 AM CST I DON'T EVEN SEE HE HAS INSURANCE, JUST RW Y DECORATOR * Telephone Encounter - Flora Humphries - 12/09/2021 10:48 AM CST I haven't but I can call the pharmacy. Y DECORATOR * Telephone Encounter - Adela Chance - 12/09/2021 10:46 AM CST Morena, Are you able to see if this patient has insurance? Y DECORATOR * Telephone Encounter - Adela Chance - 12/09/2021 10:41 AM CST Did you happen to get anything on him, I think he used to be on a Sunday and it moving to Sunday. I don't see any note of it/ Y DECORATOR * Telephone Encounter - Sarbjit Becker RMA - 12/09/2021 10:34 AM CANDY DECORATOR Pt was told by pharmacy that the [employer] needs an ins PA. Pt would like a call back once approved. Y DECORATOR documented in this encounter Plan of Treatment Not on file documented as of this encounter Visit Diagnoses Not on filedocumented in this encounter Care Teams Funeral Pre Arrangement Specialist Relationship Specialty Start Date End Date Gucci Vilchis MD PCP - General 04/16/17 08/08/22 documented as of this encounter
--- OUTSIDE RECORDS SUMMARY | 2024-11-22 10:54 | XMS_ITS | Encounter Summary ---
Author Organization [facility] Address [address] [facility] [address] [place] [address] Phone Care Team Providers Care Clamp Remover Name Role Phone Gucci Vilchis MD Primary Care Provider [phone] Encounter Details Date Type Department Care Team (Late st Contact Info) Description 11/28/[address] [facility] Infectious Diseases [address] [place] [phone] Flora Humphries Social History Tobacco Use Types Packs/Day Years Used Date Smoking Tobacco: Never Smokeless Tobacco: Never Sex and Gender Information Value Date Recorded Sex Assigned at Not on file Legal Sex Male 7:55 PM CUFF RUNNER Gender Identity Not on file Sexual Orientation Not on file documented as of this encounter Miscellaneous Notes * Telephone Encounter - Flora Humphries - 11/28/2019 11:43 AM CST Spoke with Dashawn, reminded of lab draw next week. He will come in for repeat vl and genotype. Aware lab closed on Sunday. RUNNER documented in this encounter Plan of Treatment Not on file documented as of this encounter Visit Diagnoses Not on filedocumented in this encounter Care Teams Clamp Remover Relationship Specialty Start Date End Date Gucci Vilchis MD PCP - General 04/16/17 08/08/22 [facility] Pumping Plant Operator 10/30/18 12/08/21 documented as of this encounter
--- OUTSIDE RECORDS SUMMARY | 2024-11-22 10:54 | XMS_ITS | Encounter Summary ---
Author Organization [facility] Healthcare Address [address] [place] [address] Care Team Providers Care Slab Polisher Name Role Phone Gucci Vilchis MD Primary Care Provider [phone] Encounter Details Date Type Department Care Team (Late st Contact Info) Description 10/29/2020 6:10 PM SAND MIXER MACHINE Lab [address] [address] Social History Tobacco Use Types Packs/Day Years Used Date Smoking Tobacco: Never Smokeless Tobacco: Never Sex and Gender Information Value Date Recorded Sex Assigned at Not on file Legal Sex Male 7:55 PM SAND MIXER MACHINE Gender Identity Not on file Sexual Orientation Not on file documented as of this encounter Plan of Treatment Not on file documented as of this encounter Visit Diagnoses Not on filedocumented in this encounter Care Teams Slab Polisher Relationship Specialty Start Date End Date Gucci Vilchis MD PCP - General 04/16/17 08/08/22 [facility] [place] Facilities Supervisor 10/30/18 12/08/21 documented as of this encounter
--- OUTSIDE RECORDS SUMMARY | 2024-11-22 10:54 | XMS_ITS | Encounter Summary ---
Author Organization [facility] Address [address] [facility] [address] [place] [address] Phone Care Team Providers Care Lime Sludge Mixer Name Role Phone Gucci Vilchis MD Primary Care Provider [phone] Encounter Details Date Type Department Care Team (Late st Contact Info) Description 10/10/2021 Telephone [facility] Infectious Diseases [address] [place] [phone] Flora Humphries Social History Tobacco Use Types Packs/Day Years Used Date Smoking Tobacco: Never Smokeless Tobacco: Never Sex and Gender Information Value Date Recorded Sex Assigned at Not on file Legal Sex Male 7:55 PM MAJOR DONOR COORDINATOR Gender Identity Not on file Sexual Orientation Not on file documented as of this encounter Miscellaneous Notes * Telephone Encounter - Flora Humphries - 10/10/2021 3:12 PM CST Called pt, lvm R DONOR COORDINATOR * Telephone Encounter - Flora Humphries - 10/10/2021 3:12 PM CST ----- Message from TERESSA Hollis sent at 10/06/2021 8:08 PM MAJOR DONOR COORDINATOR ----- Regarding: not CMP- RPR Hi I sent you a message that Mr. Solitario needed to have CMP and VL done. I meant RPR and VL. Sorry about that. Antoinette R DONOR COORDINATOR documented in this encounter Plan of Treatment Not on file documented as of this encounter Visit Diagnoses Not on filedocumented in this encounter Care Teams Lime Sludge Mixer Relationship Specialty Start Date End Date Gucci Vilchis MD PCP - General 04/16/17 08/08/22 [facility] Crown Buffer 10/30/18 12/08/21 documented as of this encounter
--- OUTSIDE RECORDS SUMMARY | 2024-11-22 10:54 | XMS_ITS | Encounter Summary ---
Author Organization [facility] Healthcare Address [address] [place] [address] Care Team Providers Care Travel Director Name Role Phone Gucci Vilchis MD Primary Care Provider [phone] Reason for Visit * Reason Onset Date Comments GI PRE PROCEDURE ASSESSMENT 12/07/2021 Encounter Details Date Type Department Care Team (Late st Contact Info) Description 12/07/2021 Telephone [facility] Specialty Services [address] [place] [phone] Yolanda Dewitt RN GI PRE PROCEDURE ASSESSMENT Social History Tobacco Use Types Packs/Day Years Used Date Smoking Tobacco: Never Smokeless Tobacco: Never Sex and Gender Information Value Date Recorded Sex Assigned at Not on file Legal Sex Male 7:55 PM SHEET METAL 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 Drink Golytely/Nuly tely 1/2 jug at 4 hours before leaving home on 01/24/2022. 4000 mL 12/07/2021 3 documented in this encounter Miscellaneous Notes * Telephone Encounter - Yolanda Dewitt RN - 12/07/2021 11:27 AM CST PROCEDURE Type: colon Indication: screening Referring Physician: Antoinette Riley MD Date Referred: 10/04/2021 CLINICAL ASSESSMENT []COVID Screening questions [x] Covid vaccination yes []BMI>45, Weight >350 lbs (if yes, note restrictions below) BMI Readings from Last 1 Encounters: 10/04/21 30.26 kg/m?? Wt Readings from Last 1 Encounters: 10/04/21 101.2 kg (223 lb 1.6 oz) [] Patient had GI procedure/CPAP clinic/GI clinic <30 days (if Yes, no medical screening questions needed unless new clinical issues in last 30 days) Medical screening questions: BMI/Weight: NA CARDIOVASCULAR: None RESPIRATORY/LUNG: None RENAL/LIVER/GI: None BLEEDING/CLOTTING: None NEUROLOGICAL: None ENDOCRINE: None PRIOR PROCEDURE ISSUES: None RESPIRATORY MANAGER/: NA IMPLANTS.: None Notes: DIABETIC MEDS Y/N: No/NA []Yes- Discuss diabetes medication management with prescribing physician DIALYSIS Y/N: No/NA []HD- Schedule on non-HD day, see protocol []PD- Drain PD fluid AM of procedure, if colonoscopy order AB ppx, see protocol PACEMAKER/ICD Y/N: No/NA Device info: Last documented device check: Any shocks since last cards visit (if yes must see cardiology for procedure clearance): BLOOD THINNERS/ANTICOAG/ANTIPLATELET (BESIDES ASA) Medication: NONE Physician contacted for hold order/date sent: Hold order Method sent: Date hold received: Hold instructions: CONTINUE ASPIRIN INFORMATION REQUESTED []Imaging: []Medical Progress Note/H&P []Medication list []Other: PATIENT OPTIMIZATION []Physician reviewing escalation: []CPAP: Date scheduled: Outcome : [] Location limitations: Scheduling Scheduling location limitations: no andreea Bisque Kiln Drawer needed [x] NA Language: POA [x] NA Name: SPECIAL PROCEDURE INSTRUCTIONS Scheduling Notes Procedure information Date of procedure: 01/24/2022 Time of procedure: 1:45pm Arrival time: 12:45pm Location: [facility] Proceduralist: Richard Juarez MD Instructions Method of instructions: Mailed copy12/07/2021 [x]Confirmation of ride/rouge mixer [x]Post anesthesia restrictions given [x]NPO Instructions:Drink Golytely/Nulytely 1/2 jug at 6:00 pm on 01/23/2022. Drink Golytely/Nulytely 1/2 jug at 4 hours before leaving home on 01/24/2022. [x]Diet Instructions: [x]Take non-blood thinner prescription meds that morning [x]Bring med list, photo ID, insurance card, no valuables [x]Bring COVID vaccination card (if vaccinated) Bowel Prep Prep prescribed: Nulytely Method of Bowel Prep (RX): E[facility]Scribe Copy [facility], address verified T METAL FABRICATOR documented in this encounter Plan of Treatment Not on file documented as of this encounter Visit Diagnoses Not on filedocumented in this encounter Care Teams Travel Director Relationship Specialty Start Date End Date Gucci Vilchis MD PCP - General 04/16/17 08/08/22 [facility] Melter Loader 10/30/18 12/08/21 documented as of this encounter
--- OUTSIDE RECORDS SUMMARY | 2024-11-22 10:54 | XMS_ITS | Encounter Summary ---
Author Organization [facility] Address [address] [facility] [address] [place] [address] Phone Care Team Providers Care Well Shooter Name Role Phone Gucci Vilchis MD Primary Care Provider [phone] Reason for Visit * Reason Comments Follow-up HIV Positive/AIDS Encounter Details Date Type Department Care Team (Latest Contact Info) Description 06/28/2021 10:20 AM CDT Office Visit [facility] Infectious Diseases [address] [place] [address] [address] [place] [address] Antoinette Riley PA [address] [address] HIV disease (CMS/HCC) (HCC) (Primary Dx); On highly active antiretroviral therapy (HAART); Routine screening for STI (sexually transmitted infection); Polyuria Social History Tobacco Use Types Packs/Day Years Used Date Smoking Tobacco: Never Smokeless Tobacco: Never Sex and Gender Information Value Date Recorded Sex Assigned at Not on file 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 Gender Identity Not on file Sexual Orientation Not on file documented as of this encounter Last Filed Vital Signs Vital Sign Reading Time Taken Comments Blood Pressure 108/75 06/28/2021 10:29 AM CDT Pulse 76 06/28/2021 10:29 AM CDT Temperature 36.4 ??C (97.5 ??F) 06/28/2021 10:29 AM C DT Respiratory Rate - - Oxygen Saturation - - Inhaled Oxygen Concentration - - Weight 98.9 kg (218 lb 1.6 oz) 06/28/2021 10:29 AM CDT Height 182.9 cm (6') 06/28/2021 10:29 AM CDT Body Mass Index 29.58 06/28/2021 10:29 AM CDT documented in this encounter Progress Notes * Antoinette Riley PA - 06/28/2021 10:20 AM CDT Subjective/Objective Patient ID: Dashawn Howell is a 50 y.o. male. Chief Complaint Follow-up and HIV Positive/AIDS HPI Mr. DASHAWN HOWELL is a 50??year old man initially diagnosed with HIV in 1998 by patient report. cART history includes Combivir/Sustiva, Truvada/ddI/Prezista/Norvir and Atripla. Past Genotypes: November 2010- ??M184I/M, K103N, L100I/L, and P225H/P; April 2017- K103N, P225H. He was previously on Genvoya/Prezista but had been off medications September 2020 - December 2020. 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 He was extremely busy due to COVID. CD4 = 242 (15%) on 10/29/2020 and VL = 235,617 copies on 12/14/2020. Patent had completely stopped taking his medications because he did not want to take them intermittently and increase his riskfor resistance. When he came to clinic 12/14/2020, he was started on Symtuza/Tivicay instead of resuming Genvoya/Prezista. He is feeling well and is without complaints. He has been taking it every day. Denies any side effects. ?? He smokes an occasional Black and Mild. Drinks occasionally. Denies use of any illicit drugs. Reports sex with female partners, but states he is not sexually active at this time. He declines triple screening. ? Review of Systems Constitutional: Negative for chills, [...] breath sounds. No wheezing or rales. Abdominal: General: Bowel sounds are normal. Palpations: Abdomen is soft. Tenderness: There is [...] Mood normal. Behavior: Behavior normal. Vitals BP 108/75 (BP Location: Left arm, Patient Position: Sitting) Pulse 76 Temp 36.4 ??C (97.5 ??F) Ht 182.9 cm (6') Wt 98.9 kg (218 lb 1.6 oz) BMI 29.58 kg/m?? Immunization History Administered Date(s) Administered ??? [...] ??? Tdap 07/05/2018 Current Outpatient Medications: ??? pgltjzzmn-jcnt-csimu-tenof ala (Symtuza) [phone] mg tablet ??? dolutegravir (TIVICAY) 50 mg tablet No Known Allergies STD SCREENING -SYPHILIS Lab [...] trachomatis rRNA Negative for: Neisseria gonorrhoeae rRNA [id number] NOT DETECTED 12/31/2012 [id number] NOT DETECTED 12/31/2012 [id number] NOT DETECTED 11/25/2013 [id number] NOT DETECTED 11/25/2013 No results found for: TRICHOMONU, TRICHOMONAS ANNUAL LABS AND SCREENING -TB SCREENING Lab Results Component Value Date IFNGAMMAREL Negative 07/05/2018 [id number] See Comment 08/16/2016 PPD Negative 10/29/2020 -LIPIDS [...] PAP No results found for: HIRSKHPVRNA, HPVG16, [id number], [id number] -PROSTATE CANCER SCREENING IF HIGH RISK Lab Results Component Value Date PSA 0.80 06/28/2021 BASELINE SCREENING -HEPATITIS A IMMUNITY STATUS Lab Results Component Value Date HAV Positive (A) 08/16/2016 -HEPATITIS B IMMUNITY STATUS Lab Results Component Value Date HEPBSAB Positive 08/16/2016 HEPBSAB 384 08/16/2016 -TOXOPLASMA IMMUNITY STATUS Lab Results Component Value Date TOXOIGG Negative 12/05/2018 [id number] < OR = 0.90 11/25/2013 -CMV IMMUNITY STATUS No results found for: CMVIGG -G6PD LEVEL (NORMAL >4.6) Lab Results Component Value Date G6PD Normal 08/16/2016 -[id number] STATUS Lab Results Component Value Date [id number] Negative 11/25/2013 -COLONOSCOPY- referred Assessment/Plan This is a??50??year old man presenting to ID clinic for routine HIV follow up. He restarted cART inFeb 2020: Symtuza/Tivicay after being off Genvoya/Prezista since September 2020. Labs 10/29/2020: CD4 = 242 (15%) and VL = 235,617 copies. He is feeling well and reports 100% adherence to his new regimen. Diagnoses and all orders for this visit: HIV disease (CMS/HCC) (HCC) (B20) (Primary) Assessment & Plan: Continue Symtuza/Tivicay 100% adherence encouraged to maintain viral suppression and prevent resistance. Undetectable = untransmittable. Counseling for risk reduction, adherence and pre-conception provided. Orders: - CBC with auto differential; Future - Comprehensive metabolic panel (Outreach); Future - T-helper cells (CD4) count; Future - HIV-1 RNA PCR, quantitative; Future - RPR; Future - N. gonorrhoeae/C. trachomatis Amplification Urine; Future - Pneumococcal polysaccharide vaccine 23-valent greater than or equal to 2yo subcutaneous/IM (PNEUMOVAX) - Comprehensive metabolic panel, without glucose (Outreach) - Glucose, random (Outreach) - Differential, auto - eGFR On highly active antiretroviral therapy (HAART) (Z79.899) Assessment & Plan: Routine lab monitoring on fdc HIV meds to assess for drug toxicity [...] - N. gonorrhoeae/C. trachomatis Amplification Urine; Future Polyuria (R35.8) - PSA screen; Future - Urinalysis with reflex for neutropenic patient Urine; Future - Urinalysis, microscopic only ?? The supervising physician present in this office suite for this Physician Smoking Pipe Mounter, Antoinette Riley PA-C is Dr. Bird May. documented in this encounter Miscellaneous Notes * Assessment & Plan Note - Antoinette Riley PA - 07/15/2021 2:23 PM CDT Associated Problem(s): On highly active antiretroviral therapy (HAART) Routine lab monitoring on fdc HIV meds to assess for drug toxicity and efficacy. * Assessment & Plan Note - Antoinette Riley PA - 07/15/2021 2:23 PM CDT Associated Problem(s): HIV infection (HCC) Continue Symtuza/Tivicay 100% adherence encouraged to maintain viral suppression and prevent resistance. Undetectable = untransmittable. Counseling for risk reduction, adherence and pre-conception provided. documented in this encounter Plan of Treatment Not on file documented as of this encounter Procedures Procedure Name Priority Date/Time Associated Diagnosis Comments N. GONORRHOEAE/C. TRACHOMATIS AMPLIFICATION Routine 06/28/2021 11:26 AM CDT HIV disease (CMS/HCC) (HCC) Routine screening for STI (sexually transmitted infection) GLUCOSE, RANDOM (OUTREACH) Routine 06/28/2021 11:26 AM CDT HIV disease (CMS/HCC) (HCC) On highly active antiretroviral therapy (HAART) EGFR Routine 06/28/2021 11:26 AM CDT HIV disease (CMS/HCC) (HCC) On highly active antiretroviral therapy (HAART) DIFFERENTIAL AUTO Routine 06/28/2021 11: 26 AM CDT HIV disease (CMS/HCC) (HCC) On highly active antiretroviral therapy (HAART) URINALYSIS WITH REFLEX FOR NEUTROPENIC PATIENT Routine 06/28/2021 11:26 AM CDT Polyuria PSA SCREEN Routine 06/28/2021 11:26 AM CDT Polyuria COMPREHENSIVE METABOLIC PANEL WITHOUT GLUCOSE (OUTREACH) Routine 06/28/2021 11:26 AM CDT HIV disease (CMS/HCC) (HCC) On highly active antiretroviral therapy (HAART) COMPREHENSIVE METABOLIC PANEL (OUTREACH) Routine 06/28/2021 11:26 AM CDT HIV disease (CMS/HCC) (HCC) On highly active antiretroviral therapy (HAART) CBC WITH AUTO DIFFERENTIAL Routine 06/28/2021 11:26 AM CDT HIV disease (CMS/HCC) (HCC) On highly active antiretroviral therapy (HAART) HIV-1 RNA, QUANTITATIVE, PCR Routine 06/28/2021 11:26 AM CDT HIV disease (CMS/HCC) (HCC) On highly active antiretroviral therapy (HAART) RPR Routine 06/28/2021 11:26 AM CDT HIV disease (CMS/HCC) (HCC) Routine screening for STI (sexually transmitted infection) URINALYSIS, MICROSCOPIC ONLY Routine 06/28/2021 11:26 AM CDT Polyuria T-HELPER CELLS (CD4) COUNT Routine 06/28/2021 11:26 AM CDT HIV disease (CMS/HCC) (HCC) On highly active antiretroviral therapy (HAART) PNEUMOCOCCAL POLYSACCHARIDE VACCINE 23-VALENT =>2YO SQ IM Routine 06/28/2021 HIV disease (CMS/HCC) (HCC) documented in this encounter Results * eGFR (06/28/2021 11:26 AM CDT) [facility] eGFR >90 90 - 130 mL/min/1.7 3 m2 [facility] Comment: Interpretive Data Reference Interval Normal ?>/= [...] interpretive data was last reviewed 2020 Blood 06/28/2021 11:2 6 AM CDT 06/28/2021 3:39 PM CDT Antoinette AGNNON LAB BLOOD ORDERABLES Final Result Performing Organization Address City/[facility]/ZIP Co de Phone Number [facility] Department [place] [address] * Urinalysis, microscopic only (06/28/2021 11:26 AM CDT) WBC, ur 0-5 0 - 5 /HPF [facility] RBC, ur 0-2 0 - 2 /HPF [facility] Urine 06/28/2021 11:2 6 AM CDT 06/28/2021 3:31 PM CDT Antoinette GANNON LAB URINE ORDERABLES Final Result Performing Organization Address City/[facility] Co de Phone Number [facility] Department [place] [address] * Differential, auto (06/28/2021 11:26 AM CDT) Neutrophil abs 1.9 1.7 - 6.5 K/cumm [facility] Imm gran abs 0.0 0.0 - 0.1 K/cumm [facility] Lymphocyte abs 1.8 0.8 - 3.3 K/cumm [facility] Monocyte abs 0.4 0.2 - 0.8 K/cumm [facility] Eosinophil abs 0.2 0.0 - 0.5 K/cumm [facility] Basophil abs 0.0 0.0 - 0.1 K/cumm [facility] Neutrophil pct 43.6 % [facility] Comment: Interpretive Data Percent cell count reference ranges are not reported, since discordance with absolute values may lead to misinterpretation of CBC data. Current Interpretive Data was last revised on 2018. Imm gran pct 0.5 % [facility] Comment: Interpretive Data Percent cell count reference ranges are not reported, since discordance with absolute values may lead to misinterpretation of CBC data. Current Interpretive Data was last revised on 2018. Lymphocyte pct 42.0 % [facility] Comment: Interpretive Data Percent cell count reference ranges are not reported, since discordance with absolute values may lead to misinterpretation of CBC data. Current Interpretive Data was last revised on 2018. Monocyte pct 8.9 % [facility] Comment: Interpretive Data Percent cell count reference ranges are not reported, since discordance with absolute values may lead to misinterpretation of CBC data. Current Interpretive Data was last revised on 2018. Eosinophil pct 4.3 % [facility] Comment: Interpretive Data Percent cell count reference ranges are not reported, since discordance with absolute values may lead to misinterpretation of CBC data. Current Interpretive Data was last revised on 2018. Basophil pct 0.7 % [facility] Comment: Interpretive Data Percent cell count reference ranges are not reported, since discordance with absolute values may lead to misinterpretation of CBC data. Current Interpretive Data was last revised on 2018. Blood 06/28/2021 11:2 6 AM CDT 06/28/2021 3:31 PM CDT Antoinette GANNON LAB BLOOD ORDERABLES Final Result [facility] Department [place] [address] * Glucose, random (Outreach) (06/28/2021 11:26 AM CDT) Glucose 94 70 - 199 mg/dL [facility] Comment: Interpretive Data Fasting glucose >/= 126 [...] interpretive data was last revised 2017. Blood 06/28/2021 11:2 6 AM CDT 06/28/2021 3:31 PM CDT Antoinette GANNON LAB BLOOD ORDERABLES Final Result [facility] Department [place] [address] * (ABNORMAL) Comprehensive metabolic panel, without glucose (Outreach) (06/28/2021 11:26 AM CDT) Sodium 138 135 - 145 mmol/L [facility] Potassium, pl 3.7 3.3 - 4.9 mmol/L [facility] Chloride 101 97 - 110 mmol/L [facility] CO2 27 22 - 32 mmol/L [facility] Anion gap 10 2 - 15 mmol/L [facility] BUN 11 8 - 25 mg/dL [facility] Creatinine 0.93 0.80 - 1.30 mg/dL [facility] Calcium 9.8 8.5 - 10.3 mg/dL [facility] Protein, pl 8.7(H) 6.5 - 8.5 g/dL [facility] Albumin 4.8 3.5 - 5.0 g/dL [facility] Bilirubin, total 0.2 0.1 - 1.2 mg/dL [facility] Alk phos 73 40 - 130 Units/L [facility] AST 20 10 - 50 Units/L [facility] ALT 27 7 - 55 Units/L [facility] Blood 06/28/2021 11:2 6 AM CDT 06/28/2021 3:31 PM CDT Antoinette GANNON LAB BLOOD ORDERABLES Final Result [facility] Department [place] [address] * (ABNORMAL) Urinalysis with reflex for neutropenic patient Urine (06/28/2021 11:26 AM CDT) Color, ur Yellow Yellow [facility] Clarity, ur Clear Clear [facility] Specific gravity, ur 1.018 1.010 - 1.025 [facility] pH, urine 5 [facility] Protein, ur ql Negative Negative [facility] Glucose, ur ql Negative Negative [facility] Ketones, ur Negative Negative [facility] Bilirubin, ur Negative Negative [facility] Blood, ur 1+(A) Negative [facility] Urobilinogen, ur <2.0 <2.0 mg/dL [facility] Nitrite, ur Negative Negative [facility] Leukocyte esterase, ur Negative Negative [facility] Urine 06/28/2021 11:2 6 AM CDT 06/28/2021 3:31 PM CDT Narrative [facility] - 06/28/2021 3:43 PM CDT ?? Urine pH is affected by diet, medications, systemic acid-base disturbances, and renal tubular function. ??pH may affect urinary stone formation. ??For example, urine pH below 6.0 may help reduce the tendency for calcium phosphate stones and pH greater than 6.0 may reduce the tendency for uric acid stone formation. Source: [employer]. Last revised 11-22-2017 Antoinette GANNON LAB MICROBIOLOGY - GENERAL ORDERABLES Final Result [facility] [place] [address] * PSA screen (06/28/2021 11:26 AM CDT) PSA-Total 0.80 <=3.90 ng/mL [facility] Comment: Interpretive Data ?AGE ? SEX [...] Antoinette GANNON LAB BLOOD ORDERABLES Final Result [facility] [place] [address] * N. gonorrhoeae/C. trachomatis Amplification Urine (06/28/2021 11:26 AM CDT) C. trachomatis Not detected Not detected [facility] Comment:Testing performed by : [facility], [address] [place] [address]., [id number] N. gonorrhoeae Not detected Not detected [facility] Comment: Testing performed by the [facility]. This assay detects Chlamydia trachomatis and Neisseria gonorrhoeae by nucleic acid amplification testing (NAAT). This test is approved by the [place] Food and Drug Administration and the performance characteristics have been verified by the laboratory. The performance characteristics of this test have not been evaluated in women or individuals less than 16 years of age. Testing performed by: [facility], [address] [place] [address]., [id number] Urine (None) 06/28/2021 11:2 6 AM CDT 06/28/2021 4:26 PM CDT Antoinette GANNON LAB MICROBIOLOGY - GENERAL ORDERABLES Final Result Performing Organization Address City/[facility] Co de Phone Number [facility] [place] [address] * RPR (06/28/2021 11:26 AM CDT) [facility] RPR Nonreactive Nonreactive [facility] Blood 06/28/2021 11:2 6 AM CDT 06/28/2021 3:31 PM CDT Antoinette GANNON LAB MICROBIOLOGY - GENERAL ORDERABLES Final Result Performing Organization Address [facility] [place] [address] * HIV-1 RNA PCR, quantitative (06/28/2021 11:26 AM CDT) [facility] HIV-1 RNA Not Detected [facility] Comment: Interpretive Data: The quantifiable range of this assay is 20 copies/mL to 10,000,000 copies/mL (1.30 log copies/mL to 7.00 log copies/mL). ??Testing was performed by the [employer] Ampl[employer] TaqMan HIV-1 Test version 2.0 ([employer] Testing performed at [facility] Current Interpretive Data was last revised on 2015. Blood 06/28/2021 11:2 6 AM CDT 06/28/2021 3:38 PM CDT Antoinette GANNON LAB MICROBIOLOGY - GENERAL ORDERABLES Final Result Performing Organization Address [facility] [place] [address] * (ABNORMAL) T-helper cells (CD4) count (06/28/2021 11:26 AM CDT) [facility] CD4 pct 18(L) 31 - 64 % [facility] CD4 Absolute 266(L) 365 - 1,294 cells/mcL [facility] Blood 06/28/2021 11:2 6 AM CDT 06/28/2021 3:31 PM CDT Antoinette GANNON LAB BLOOD ORDERABLES Final Result Performing Organization Address City/[facility]/ZIP Co de Phone Number [facility] [place] [address] * CBC with auto differential (06/28/2021 11:26 AM CDT) [facility] WBC 4.4 3.8 - 9.9 K/cumm [facility] Hgb 13.2 13.0 - 17.5 g/dL [facility] Hct 40.3 38.9 - 50.3 % [facility] Plt 262 150 - 400 K/cumm [facility] MPV 10.4 9.1 - 12.3 fL [facility] RBC 4.78 4.30 - 5.80 M/cumm [facility] MCV 84.3 81.3 - 96.4 fL [facility] MCH 27.6 27.1 - 33.3 pg [facility] MCHC 32.8 32.3 - 35.7 g/dL [facility] RDW CV 13.2 11.1 - 14.9 % [facility] RDW SD 41.3 35.7 - 48.1 fL [facility] NRBC abs 0.00 0.00 - 0.01 K/cumm [facility] Blood 06/28/2021 11:2 6 AM CDT 06/28/2021 3:31 PM CDT Antoinette GANNON LAB BLOOD ORDERABLES Final Result Performing Organization Address City/[facility]/ZIP Co de Phone Number [facility] [place] [address] * Pneumococcal polysaccharide vaccine 23-valent greater than or equal to 2yo subcutaneous/IM (PNEUMOVAX) (06/28/2021) Antoinette GANNON IMMUNIZATION ORDERABLES Fi nal Result documented in this encounter Visit Diagnoses Diagnosis HIV disease (CMS/HCC) (HCC)- Primary Human immunodeficiency virus [HIV] disease On highly active antiretroviral therapy (HAART) Routine screening for STI (sexually transmitted infection) Screening examination for venereal disease Polyuria documented in this encounter Discontinued Medications Medication Sig Discontinue Reason Start Date End Da te darunavir ethanolate (Prezista) 800 mg tabletIndications:HIV disease (CMS/HCC) ([facility]) Take 1 tablet (800 mg total) by mouth daily Therapy completed 10/29/2020 06/28/2021 documented as of this encounter Care Teams Well Shooter Relationship Specialty Start Date End Date Gucci Vilchis MD PCP - General 04/16/17 08/08/22 [facility] Exhibition Organiser 10/30/18 12/08/21 documented as of this encounter
--- OUTSIDE RECORDS SUMMARY | 2024-11-22 10:54 | XMS_ITS | Encounter Summary ---
Author Organization [facility] Address [address] [facility] [address] [place] [address] Phone Care Team Providers Care Inspector Raw Quartz Name Role Phone Gucci Vilchis MD Primary Care Provider [phone] Reason for Visit * Reason Onset Date Comments Patient issue/concern 11/13/2019 Encounter Details Date Type Department Care Team (Late st Contact Info) Description 11/13/2019 Telephone [facility] Infectious Diseases [address] [place] [address] Francheska Gunderson CMA Patient issue/concern Social History Tobacco Use Types Packs/Day Years Used Date Smoking Tobacco: Never Smokeless Tobacco: Never Sex and Gender Information Value Date Recorded Sex Assigned at Not on file 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 K [employer]TER [employer]UM documented in this encounter Plan of Treatment Not on file documented as of this encounter Visit Diagnoses Not on filedocumented in this encounter Care Teams Inspector Raw Quartz Relationship Specialty Start Date End Date Gucci Vilchis MD PCP - General 04/16/17 08/08/22 [facility] [employer] Founder 10/30/18 12/08/21 documented as of this encounter
--- OUTSIDE RECORDS SUMMARY | 2024-11-22 10:54 | XMS_ITS | Encounter Summary ---
Author Organization [facility] Address [address] [facility] [address] [place] [address] Phone Care Team Providers Care Flame Degreaser Name Role Phone Gucci Vilchis MD Primary Care Provider [phone] Reason for Visit * Reason Comments Follow-up HIV Positive/AIDS Encounter Details Date Type Department Care Team (Latest Contact Info) Description 12/14/2020 10:00 AM MARKING DEVICES ASSEMBLER Office Visit [facility] Infectious Diseases [address] [place] [address] [address] [place] [address] Antoinette Riley PA [address] [address] HIV disease (CMS/HCC) (Primary Dx); On highly active antiretroviral therapy (HAART) Social History Tobacco Use Types Packs/Day Years Used Date Smoking Tobacco: Never Smokeless Tobacco: Never Sex and Gender Information Value Date Recorded Sex Assigned at Not on file Legal Sex Male 7:55 PM MARKING DEVICES ASSEMBLER Gender Identity Not on file Sexual Orientation Not on file documented as of this encounter Last Filed Vital Signs Vital Sign Reading Time Taken Comments Blood Pressure 118/76 12/14/2020 9:47 AM MARKING DEVICES ASSEMBLER Pulse 82 12/14/2020 9:47 AM MARKING DEVICES ASSEMBLER Temperature 36.1 ??C (97 ??F) 12/14/2020 9:47 AM MARKING DEVICES ASSEMBLER Respiratory Rate - - Oxygen Saturation - - Inhaled Oxygen Concentration - - Weight 97.8 kg (215 lb 9.6 oz) 12/14/2020 9:47 A M MARKING DEVICES ASSEMBLER Height 182.9 cm (6') 12/14/2020 9:47 AM MARKING DEVICES ASSEMBLER Body Mass Index 29.24 12/14/2020 9:47 AM MARKING DEVICES ASSEMBLER documented in this encounter Ordered Prescriptions Prescription Sig Dispense Quantity Refills Last Filled Start Date End Date dolutegravir (TIVICAY) 50 mg tabletIndications: HIV disease (CMS/HCC) (HCC) Take 1 tablet (50 mg total) by mouth daily 90 tablet 2 12/14/2020 12/26/2021 jyzcmnyvj-wzto-abz ri-tenof ala (Symtuza) [id number] mg tabletIndications: HIV disease (CMS/HCC) (HCC) Take 1 tablet by mouth daily 90 tablet 2 12/14/2020 12/26/2021 documented in this encounter Progress Notes * Antoinette Riley PA - 12/14/2020 10:00 AM CST Subjective/Objective Patient ID: Dashawn Howell is a 50 y.o. male. Chief Complaint Follow-up and HIV Positive/AIDS Off cART since September- ready to resume meds HPI Mr. DASHAWN HOWELL is a 50??year old man initially diagnosed with HIV in 1998 by patient report. cART history includes Combivir/Sustiva, Truvada/ddI/Prezista/Norvir and Atripla. Past Genotypes: November 2010- ??M184I/M, K103N, L100I/L, and P225H/P; April 2017- K103N, P225H. Most currently, he has been on Genvoya/Prezista but says he has been off medications for a couple of months, probably since September. 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 He says he is extremely busy at this time due to COVID. The patient says he completely stopped taking his medications because he did not want to take them intermittently and increase his risks for resistance. He is feeling well and is without complaints. Labs 10/29/2020: CD4 = 242 (15%) and VL = 235,617 copies. ?? He smokes an occasional Black and Mild. Drinks occasionally. Denies use of any illicit drugs. Reports sex with female partners, but states he is not sexually active at this time. He declines triple screening. ? Review of Systems Constitutional: Negative for chills and fever. HENT: Negative for congestion, rhinorrhea, sore throat and trouble swallowing. Eyes: Negative [...] for dizziness and headaches. Physical Exam Vitals signs reviewed. Constitutional: General: He is not in acute distress. HENT: Head: Normocephalic and atraumatic. Eyes: General: No scleral icterus. Conjunctiva/sclera: Conjunctivae normal. Neck: Musculoskeletal: Normal range of motion and neck supple. No neck rigidity or muscular tenderness. Vascular: No carotid bruit. Cardiovascular: Rate and Rhythm: Normal rate and regular rhythm. Pulses: Normal pulses. Heart sounds: Normal heart sounds. Pulmonary: Effort: Pulmonary effort is normal. Breath sounds: Normal breath sounds. No wheezing or rales. Abdominal: General: Bowel sounds are normal. Palpations: Abdomen is soft. Tenderness: There is no abdominal tenderness. Musculoskeletal: Normal range of motion. Lymphadenopathy: Cervical: No cervical adenopathy. Skin: General: Skin is warm and dry. Coloration: Skin is not jaundiced. Findings: No erythema or rash. Neurological: General: No focal deficit present. Mental Status: He is alert and oriented to person, place, and time. Psychiatric: Mood and Affect: Mood normal. Behavior: Behavior normal. Vitals BP 118/76 (BP Location: Left arm, Patient Position: Sitting) Pulse 82 Temp 36.1 ??C (97 ??F) Ht 182.9 cm (6') Wt 97.8 kg (215 lb 9.6 oz) BMI 29.24 kg/m?? Immunization History Administered Date(s) Administered ??? Hep A, Adult 12/31/2012 ??? Hep B Vaccine 06/02/2014 ??? Influenza, Quadrivalent, Cell Culture-based MDCK, Preservative Free, Antibiotic Free, Intramuscular 10/28/2019, 10/29/2020 ??? Influenza, Trivalent, Intramuscular 10/17/2011, 08/06/2012, 11/25/2013 ??? Influenza, Trivalent, Preservative Free, Intramuscular 08/16/2016 ??? PPD TEST 10/26/2010, 12/12/2011, 12/31/2012 ??? Pneumococcal Conjugate PCV 13 06/02/2014 ??? Pneumococcal Polysaccharide PPV23 12/31/2012 ??? Tdap 07/05/2018 Current Outpatient Medications: ??? darunavir ethanolate (Prezista) 800 mg tablet ??? vtawhuxtq-gbxf-qtlnx-tenof ala (Symtuza) [phone] mg tablet ??? dolutegravir (TIVICAY) 50 mg [...] trachomatis rRNA Negative for: Neisseria gonorrhoeae rRNA [id number] NOT DETECTED 12/31/2012 [id number] NOT DETECTED 12/31/2012 [id number] NOT DETECTED 11/25/2013 [id number] NOT DETECTED 11/25/2013 No results found for: TRICHOMONU, TRICHOMONAS ANNUAL LABS AND SCREENING -TB SCREENING Lab Results Component Value Date IFNGAMMAREL Negative 07/05/2018 [id number] See Comment 08/16/2016 PPD Negative 10/29/2020 -LIPIDS [...] PAP No results found for: HIRSKHPVRNA, HPVG16, [id number], [id number] -PROSTATE CANCER SCREENING IF HIGH RISK No results found for: PSA BASELINE SCREENING -HEPATITIS A IMMUNITY STATUS Lab Results Component Value Date HAV Positive (A) 08/16/2016 -HEPATITIS B IMMUNITY STATUS Lab Results Component Value Date HEPBSAB Positive 08/16/2016 HEPBSAB 384 08/16/2016 -TOXOPLASMA IMMUNITY STATUS Lab Results Component Value Date TOXOIGG Negative 12/05/2018 [id number] < OR = 0.90 11/25/2013 -CMV IMMUNITY STATUS No results found for: CMVIGG -G6PD LEVEL (NORMAL >4.6) Lab Results Component Value Date G6PD Normal 08/16/2016 -[id number] STATUS Lab Results Component Value Date [id number] Negative 11/25/2013 -COLONOSCOPY- Refer at next visit Assessment/Plan This is a 50??year old man presenting to ID clinic for routine HIV follow up and to re-start cART after being off since September. Labs 10/29/2020: CD4 = 242 (15%) and VL = 235,617 copies. Diagnoses and all orders for this visit: HIV disease (CMS/HCC) (B20) (Primary) Assessment & Plan: Stop Genvoya and Prezcobix. Start Symtuza and Tivicay - pills are somewhat smaller and Tivicay is a more potent integrase inhibitor than elvitegravir. 100% adherence encouraged to maintain viral suppression and prevent resistance. Undetectable = untransmittable. Risk reduction counseling and adherence counseling provided. RTC 6 weeks to check on adherence, tolerance, and viral load. Orders: - HIV-1 RNA PCR, quantitative; Future - wohbfwyuz-utge-aqmyk-tenof ala (Symtuza) [id number] mg tablet; Take 1 tablet by mouth daily - dolutegravir (TIVICAY) 50 mg tablet; Take 1 tablet (50 mg total) by mouth daily On highly active antiretroviral therapy (HAART) (Z79.899) Assessment & Plan: Will check VL today prior to re-initiation of cART. Will recheck VL iin 6-8 weeks on cART. Orders: - HIV-1 RNA PCR, quantitative; Future RTC 6- 8 weeks. The supervising physician present in this office suite for this Physician Change Agent, Antoinette Riley PA-C is Dr. Bird May. ING DEVICES ASSEMBLER documented in this encounter Miscellaneous Notes * Assessment & Plan Note - Antoinette Riley PA - 12/15/2020 10:19 AM MARKING DEVICES ASSEMBLER Associated Problem(s): On highly active antiretroviral therapy (HAART) Will check VL today prior to re-initiation of cART. Will recheck VL iin 6-8 weeks on cART. ING DEVICES ASSEMBLER ING DEVICES ASSEMBLER * Assessment & Plan Note - Antoinette Riley PA - 12/15/2020 9:53 AM MARKING DEVICES ASSEMBLER Associated Problem(s): HIV infection (HCC) Stop Genvoya and Prezcobix. Start Symtuza and Tivicay - pills are somewhat smaller and Tivicay is a more potent integrase inhibitor than elvitegravir. 100% adherence encouraged to maintain viral suppression and prevent resistance. Undetectable = untransmittable. Risk reduction counseling and adherence counseling provided. RTC 6 weeks to check on adherence, tolerance, and viral load. ING DEVICES ASSEMBLER documented in this encounter Plan of Treatment Not on file documented as of this encounter Procedures Procedure Name Priority Date/Time Associated Diagnosis Comments HIV-1 RNA, QUANTITATIVE, PCR Routine 12/14/2020 10:50 AM MARKING DEVICES ASSEMBLER HIV disease (CMS/HCC) On highly active antiretroviral therapy (HAART) documented in this encounter Results * (ABNORMAL) HIV-1 RNA PCR, quantitative (12/14/2020 10:50 AM MARKING DEVICES ASSEMBLER) HIV-1 RNA Detected( A) [facility] Comment: Interpretive Data: The quantifiable range of this assay is 20 copies/mL to 10,000,000 copies/mL (1.30 log copies/mL to 7.00 log copies/mL). ??Testing was performed by the [employer] AmpliPrep/NIELS TaqMan HIV-1 Test version 2.0 ([employer] Testing performed at [facility] Current Interpretive Data was last revised on 2015. HIV-1 RNA, copies/mL 127,248 copies/mL [facility] HIV-1 RNA, log 5.10 log cps/mL [facility] Blood specimen (specimen) 12/14/2020 10:50 AM MARKING DEVICES ASSEMBLER 12/15/2020 6:39 AM MARKING DEVICES ASSEMBLER us Antoinette [facility] MICROBIOLOGY - GENERAL ORDERABLES Final Result [facility] Department [place] [address] documented in this encounter Visit Diagnoses Diagnosis HIV disease (CMS/HCC) (HCC)- Primary Human immunodeficiency virus [HIV] disease On highly active antiretroviral therapy (HAART) documented in this encounter Discontinued Medications Medication Sig Discontinue Reason Start Date End Da te dpdtzzg-vwu-hvega-tenof ALAFEN (Genvoya) [phone] mg tabletIndications:HIV disease (CMS/HCC) (HCC) Take 1 tablet by mouth daily with lunch Therapy completed 10/29/2020 12/14/2020 documented as of this encounter Care Teams Flame Degreaser Relationship Specialty Start Date End Date Gucci Vilchis MD PCP - General 04/16/17 08/08/22 [facility] [employer] Liaison Officer 10/30/18 12/08/21 documented as of this encounter
--- OUTSIDE RECORDS SUMMARY | 2024-11-22 10:54 | XMS_ITS | Encounter Summary ---
Author Organization [facility] Healthcare Address [address] [place] [address] Care Team Providers Care Site Supervising Technical Operator Name Role Phone Gucci Vilchis MD Primary Care Provider [phone] Encounter Details Date Type Department Care Team (Late st Contact Info) Description 10/28/2019 3:05 PM MANAGER INSIDE Lab [address] [address] Social History Tobacco Use Types Packs/Day Years Used Date Smoking Tobacco: Never Smokeless Tobacco: Never Sex and Gender Information Value Date Recorded Sex Assigned at Not on file Legal Sex Male 7:55 PM MANAGER INSIDE Gender Identity Not on file Sexual Orientation Not on file documented as of this encounter Plan of Treatment Not on file documented as of this encounter Visit Diagnoses Not on filedocumented in this encounter Care Teams Site Supervising Technical Operator Relationship Specialty Start Date End Date Gucci Vilchis MD PCP - General 04/16/17 08/08/22 [facility] [place] Pasteuriser Operator 10/30/18 12/08/21 documented as of this encounter
--- OUTSIDE RECORDS SUMMARY | 2024-11-22 10:54 | XMS_ITS | Encounter Summary ---
Author Organization [facility] Healthcare Address [address] [place] [address] Care Team Providers Care Finance And Administration Manager Name Role Phone Gucci Vilchis MD Primary Care Provider [phone] Encounter Details Date Type Department Care Team (Late st Contact Info) Description 10/04/2021 5:45 PM MEDICAL STAFF SPECIALIST Lab [address] [address] Social History Tobacco Use Types Packs/Day Years Used Date Smoking Tobacco: Never Smokeless Tobacco: Never Sex and Gender Information Value Date Recorded Sex Assigned at Not on file Legal Sex Male 7:55 PM MEDICAL STAFF SPECIALIST Gender Identity Not on file Sexual Orientation Not on file documented as of this encounter Plan of Treatment Not on file documented as of this encounter Procedures Procedure Name Priority Date/Time Associated Diagnosis Comments MISLABLED TEST Routine 10/04/2021 11:44 AM MEDICAL STAFF SPECIALIST MISLABLED TEST Routine 10/04/2021 11:44 AM MEDICAL STAFF SPECIALIST documented in this encounter Results * Mislabeled Test (10/04/2021 11:44 AM MEDICAL STAFF SPECIALIST) Location Outreach [facility] Comment:IDSPECLTYPRG/INFWU Reason Wrong Patient Drawn JUS JOHNSON Mislabel resolution Testing canceled [facility] Blood 10/04/2021 11:4 4 AM MEDICAL STAFF SPECIALIST 10/05/2021 7:53 AM MEDICAL STAFF SPECIALIST Antoinette GANNON LAB BLOOD ORDERABLES Final Result Performing Organization Address [facility] Co de Phone Number [facility] Department [place] [address] * Mislabeled Test (10/04/2021 11:44 AM MEDICAL STAFF SPECIALIST) Location Outreach [facility] Reason Specimen and Requistion labeling differ [facility] Comment: For the Patient Dashawn Solitario ??had another patient specimen mixed in with it, then patient access had the specimens. It was the patient willard Hoover was mixed in. willard Hoover had a yellow top tube for a ctng-urine, Red top RPR QL, a knapp top cs Glucose , a mint green - cs basic met plasma, and a hiv 1/2 ab. and for Patient Dashawn Solitario Hiv-1 RNA a pink , RpR red top, Cs comp met plasma aq mint green top, a lavender top for a cbcwdiff, a lavender top for a cd4 and a cs glucose for a knapp top tube. Mislabel resolution Testing canceled [facility] Blood 10/04/2021 11:4 4 AM MEDICAL STAFF SPECIALIST 10/04/2021 7:32 PM MEDICAL STAFF SPECIALIST Antoinette GANNON [facility] BLOOD ORDERABLES Final Result Performing Organization Address [facility] Co de Phone Number [facility] Department [place] [address] documented in this encounter Visit Diagnoses Not on filedocumented in this encounter Care Teams Finance And Administration Manager Relationship Specialty Start Date End Date Gucci Vilchis MD PCP - General 04/16/17 08/08/22 [facility] [place] Desk Maker 10/30/18 12/08/21 documented as of this encounter
--- OUTSIDE RECORDS SUMMARY | 2024-11-22 10:55 | XMS_ITS | Encounter Summary ---
Author Organization [facility] Healthcare Address [address] [place] [address] Care Team Providers Care Rattan Worker Name Role Phone Gucci Vilchis MD Primary Care Provider [phone] Encounter Details Date Type Department Care Team (Latest Contact Info) Description 04/16/2017 10:49 AM CDT - 04/16/2017 11:59 PM CDT Hospital Encounter [facility] [phone] Eugenio Madera MD [address] [facility] [address] [place] [address] Discharge Disposition: Discharge to home or self care Social History Tobacco Use Types Packs/Day Years Used Date Smoking Tobacco: Never Assessed Sex and Gender Information Value Date Recorded Sex Assigned at Not on file 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 STORE AT ROOMTEMPERATURE . 08/16/2016 8 [id number] i-tenof ALAFEN (GENVOYA) [phone] mg tablet TAKE ONE TABLET BY MOUTH ONCE DAILY WITH FOOD. STORE IN ORIGINAL CONTAINER AT ROOM TEMPERATURE. 08/16/2016 8 documented as of this encounter Discharge Disposition Disposition Code Departure Means Destination Discharge to home or self care documented in this encounter Plan of Treatment Not on file documented as of this encounter Procedures Procedure Name Priority Date/Time Associated Diagnosis Comments INTERFERON GAMMA RELEASE ASSAY TB Routine Gen Lab 04/16/2017 10:58 AM CDT HIV GENOTYPE Routine Gen Lab 04/16/2017 10:58 AM CDT HIV-1 RNA, QUANTITATIVE, PCR Routine Gen Lab 04/16/2017 10:58 AM CDT T-HELPER CELLS (CD4) COUNT Routine Gen Lab 04/16/2017 10:58 AM CDT URINALYSIS Routine Gen Lab 04/16/2017 10:58 AM CDT URINALYSIS, MICROSCOPIC ONLY Routine Gen Lab 04/16/2017 10:58 AM CDT N. GONORRHOEAE/C. TRACHOMATIS AMPLIFICATION TEST RTNm 04/16/2017 10:58 AM CDT CS GLUCOSE Routine Gen Lab 04/16/2017 10:58 AM CDT DIFFERENTIAL AUTO Routine Gen Lab 04/16/2017 10: 58 AM CDT COMPREHENSIVE METABOLIC PANEL WITHOUT GLUCOSE (OUTREACH) Routine Gen Lab 04/16/2017 10:58 AM CDT CBC WITH AUTO DIFFERENTIAL Routine Gen Lab 04/16/2017 10:58 AM CDT URINE CULTURE Routine Gen Lab 04/16/2017 10:58 AM CDT LIPID PANEL Routine Gen Lab 04/16/2017 10:58 AM CDT DISCHARGE LABORATORY CUMULATIVE REPORT 04/16/2017 documented in this encounter Results * HIV genotype (04/16/2017 10:58 AM CDT) HIV-1, genotype See separate report scanned into the Clinical Desktop Scanned Laboratory Reports Tab. [facility] Comment:Testing performed by : [facility], [place] [address]. Blood specimen (specimen) 04/16/2017 10:58 AM CDT 04/17/2017 7:38 AM CDT Eugenio Madera MD LAB BLOOD ORDERABLES F inal Result Performing Organization Address [facility] Co de Phone Number [facility] [place] [address] * Interferon Gamma Release Assay TB (04/16/2017 10:58 AM CDT) [facility] IFN-Gamma Release Assay TB Negative [facility] Comment: See separate report scanned into the Clinical Desktop Scanned Laboratory Reports Tab. Interpretive Data Testing performed by [facility], [address] [place] [address] Current Interpretive Data was last revised 2014 Blood specimen (specimen) 04/16/2017 10:58 AM CDT 04/16/2017 11:37 AM CDT Eugenio Madera MD LAB BLOOD ORDERABLES F inal Result Performing Organization Address [facility] de Phone Number [facility] [place] [address] * HIV-1 RNA, quantitative, PCR (04/16/2017 10:58 AM CDT) [facility] HIV-1 RNA Detected [facility] Comment: Interpretive Data: The quantifiable range of this assay is 20 copies/mL to 10,000,000 copies/mL (1.30 log copies/mL to 7.00 log copies/mL). ??Testing was performed by the [employer] AmpliPrep/NIELS TaqMan HIV-1 Test version 2.0 ([employer] [facility] Testing performed at [facility] Current Interpretive Data was last revised on 2015. HIV-1 RNA, copies/mL 10,269 copies/mL [facility] HIV-1 RNA, log 4.01 log cps/mL [facility] Blood specimen (specimen) 04/16/2017 10:58 AM CDT 04/17/2017 7:38 AM CDT Eugenio Madera MD LAB MICROBIOLOGY - GEN ERAL ORDERABLES Final Result Performing Organization Address [facility] de Phone Number [facility] [place] [address] * (ABNORMAL) T-helper cells (CD4) count (04/16/2017 10:58 AM CDT) CD4 pct 21(L) 31 - 64 % [facility] CD4 Absolute 367 365 - 1,294 cells/mcL [facility] Blood specimen (specimen) 04/16/2017 10:58 AM CDT 04/16/2017 11:37 AM CDT Eugenio Madera MD LAB BLOOD ORDERABLES F inal Result Performing Organization Address [facility] de Phone Number [facility] [place] [address] * Urinalysis, microscopic (04/16/2017 10:58 AM CDT) RBC, ur 2 0 - 3 /HPF [facility] WBC, ur 0 0 - 5 /HPF [facility] Bacteria, ur Negative Trace [facility] Epithelial cells, renal, ur 0 0 - 0 /HPF [facility] Urine 04/16/2017 10:5 8 AM CDT 04/16/2017 11:37 AM CDT Eugenio Madera MD LAB URINE ORDERABLES F inal Result Performing Organization Address [facility] de Phone Number [facility] [place] [address] * (ABNORMAL) Urinalysis (04/16/2017 10:58 AM CDT) Color, ur Yellow Yellow [facility] Clarity, ur Clear Clear [facility] Specific gravity, ur 1.019 1.003 - 1.030 [facility] pH, ur 5.0 5.0 - 8.0 [facility] Albumin, ur Negative Trace [facility] Glucose, ur ql Negative Negative [facility] Ketones, ur Negative Negative [facility] Bilirubin, ur Negative Negative [facility] Blood, ur 1+(A) Negative [facility] Urobilinogen, ur <2.0 <2.0 mg/dL [facility] Nitrites, ur Negative Negative [facility] Leukocyte esterase, ur 1+(A) Negative [facility] Urine 04/16/2017 10:5 8 AM CDT 04/16/2017 11:37 AM CDT Eugenio Madera MD LAB URINE ORDERABLES F inal Result [facility] Department [place] [address] * N. gonorrhoeae/C. trachomatis amplification test (04/16/2017 10:58 AM CDT) Report Final Report: Negative for: ??Chlamydia trachomatis rRNA Negative for: ??Neisseria gonorrhoeae rRNA [facility] Urine 04/16/2017 10:5 8 AM CDT 04/16/2017 11:57 AM CDT Narrative [facility] - 04/17/2017 3:09 PM CDT Testing performed by the Gen-Probe [employer] APTIMA Combo 2 Assay. This nucleic acid amplification test (NAAT) detects ribosomal RNA (rRNA) from Chlamydia trachomatis and Neisseria gonorrhoeae using target capture,and Flat Sorter Processor-Mediated Amplification (TMA). This test is approved by the [place] Food and Drug Administration for endocervical, vaginal, and male urethral swab specimens, in addition to male and female urine specimens. The performance characteristics for these specimen types have been verified by the [facility] Microbiology Laboratory.The performance characteristics of this assay for pharyngeal and rectal specimens collected from cervical swab collection devices have been validated and verified by the [facility] Microbiology Laboratory. Verification studies support a lack of cross reactivity with other Neisseria species considered normal oropharyngeal bacterial marjorie. Rectal swab specimens containing excess stool may be inhibitory and result in false negatives for Chlamydia trachomatis or Neisseria gonorrhoeae. The performance characteristics of this test have not been evaluated in women or individuals less than 16 years of age. Eugenio Madera MD LAB MICROBIOLOGY - GEN ERAL ORDERABLES Final Result Performing Organization Address [facility] Co de Phone Number [facility] Department [place] [address] * Urine culture (04/16/2017 10:58 AM CDT) Report Final Report: Insignificant growth based on current clinical standards. [facility] Urine 04/16/2017 10:5 8 AM CDT 04/16/2017 1:02 PM CDT Narrative [facility] - 04/17/2017 8:08 AM CDT Eugenio Madera MD LAB MICROBIOLOGY - GEN ERAL ORDERABLES Final Result Performing Organization Address [facility] Co de Phone Number [facility] [place] [address] * (ABNORMAL) Lipid panel (04/16/2017 10:58 AM CDT) Cholesterol 202(H) 30 - 200 mg/dL [facility] Comment: Interpretive Data Desirable: ?<200 mg/dL Borderline high: ??200-239 mg/dL High: ? > or = 240 mg/dL Literature Reference: National Cholesterol Education Program (NCEP) Expert Panel on Detection, Evaluation, and Treatment of High Blood Cholesterol in Adults (Adult Treatment Panel III). ??Circulation 2004; 110:227. Current interpretive data was last revised on 2015. Triglycerides 82 0 - 150 mg/dL [facility] Comment: Interpretive Data Desirable: ? < 150 mg/dL Borderline High: ? 150 - 199 mg/dL High: ?200 - 499 mg/dL Very High: ? > or = 499 mg/dL Literature Reference: See Cholesterol Current interpretive data was last revised on 2015. HDL 38(L) >=40 mg/dL [facility] Comment: Interpretive Data Less than 40 mg/dL - low; A major risk factor for heart disease. Greater than or equal to 60 mg/dL - High; ??considered protective of heart disease. Literature Reference: See Cholesterol Current interpretive data was last revised on 2015. LDL, calculated 148(H) 10 - 129 mg/dL [facility] Comment: Interpretive Data Optimal: ? < 100 mg/dL Near Optimal: ?100 - 129 mg/dL Borderline High: ?? 130 - 159 mg/dL High: ?160 - 189 mg/dL Very high: ? > or = 190 mg/dL Literature Reference: See Cholesterol Current interpretive data was last revised on 2015. Non-HDL Cholesterol 164 mg/dL [facility] Comment: Interpretive Data When triglycerides are >200 mg/dL, non-HDL C is a secondary target of therapy, with a goal 30 mg/dL higher than the identified LDL-C goal. Reference: ??See Cholesterol Reference. Current interpretive data was last revised 2015. Blood specimen (specimen) 04/16/2017 10:58 AM CDT 04/16/2017 11:28 AM CDT us Eugenio Madera MD LAB BLOOD ORDERABLES E dited Result - Final [facility] Department [place] [address] * Comprehensive metabolic panel without glucose (outreach) (04/16/2017 10:58 AM CDT) Sodium 141 135 - 145 mmol/L [facility] Potassium, pl 3.6 3.3 - 4.9 mmol/L [facility] Chloride 104 97 - 110 mmol/L [facility] Comment:fixed result mapping CO2 26 22 - 32 mmol/L [facility] Anion gap 11 2 - 15 mmol/L [facility] BUN 8 8 - 25 mg/dL [facility] Creatinine 0.83 0.80 - 1.30 mg/dL [facility] Calcium 9.4 8.5 - 10.3 mg/dL [facility] Protein, pl 8.1 6.5 - 8.5 g/dL [facility] Albumin 4.5 3.5 - 5.0 g/dL [facility] Bilirubin, total 0.3 0.1 - 1.2 mg/dL [facility] Alk phos 56 40 - 130 Units/L [facility] AST 21 10 - 50 Units/L [facility] ALT 20 7 - 55 Units/L [facility] Blood specimen (specimen) 04/16/2017 10:58 AM CDT 04/16/2017 11:28 AM CDT us Eugenio Madera MD LAB BLOOD ORDERABLES E dited Result - Final [facility] Department [place] [address] * (ABNORMAL) Differential, auto (04/16/2017 10:58 AM CDT) Neutrophil pct 31.9 % [facility] Imm gran pct 0.3 % [facility] Lymphocyte pct 55.5 % [facility] Monocyte pct 6.7 % [facility] Eosinophil pct 5.1 % [facility] Basophil pct 0.5 % [facility] Neutrophil abs 1.18(L) 1.70 - 6.50 K/cumm [facility] Imm gran abs 0.01 0.00 - 0.10 K/cumm [facility] Lymphocyte abs 2.06 0.80 - 3.30 K/cumm [facility] Monocyte abs 0.25 0.20 - 0.80 K/cumm [facility] Eosinophil abs 0.19 0.00 - 0.50 K/cumm [facility] Basophil abs 0.02 0.00 - 0.10 K/cumm [facility] Blood specimen (specimen) 04/16/2017 10:58 AM CDT 04/16/2017 11:28 AM CDT Eugenio Madera MD LAB BLOOD ORDERABLES F inal Result [facility] Department [place] [address] * (ABNORMAL) CBC with auto differential (04/16/2017 10:58 AM CDT) [facility] WBC 3.71(L) 3.80 - 9.90 K/cumm [facility] RBC 4.51 4.30 - 5.80 M/cumm [facility] Hgb 12.3(L) 13.0 - 17.5 g/dL [facility] Hct 36.7(L) 38.9 - 50.3 % [facility] MCV 81.4 81.3 - 96.4 fL [facility] MCH 27.3 27.1 - 33.3 pg [facility] MCHC 33.5 32.3 - 35.7 g/dL [facility] RDW CV 13.3 11.1 - 14.9 % [facility] RDW SD 39.7 35.7 - 48.1 fL [facility] Plt 208 150 - 400 K/cumm [facility] MPV 10.0 9.1 - 12.3 fL [facility] NRBC 0.0 0.0 - 0.2 % [facility] NRBC abs 0.00 0.00 - 0.01 K/cumm [facility] Blood specimen (specimen) 04/16/2017 10:58 AM CDT 04/16/2017 11:28 AM CDT Eugenio Madera MD LAB BLOOD ORDERABLES F inal Result [facility] [place] [address] * CS GLUCOSE (04/16/2017 10:58 AM CDT) Glucose 97 70 - 199 mg/dL [facility] Anatomical Region Laterality Modality Other Blood specimen (specimen) 04/16/2017 10:58 AM CDT 04/16/2017 11:28 AM CDT Eugenio Madera MD LAB BLOOD ORDERABLES F inal Result * DISCHARGE LABORATORY CUMULATIVE REPORT (04/16/2017) Provider Scanning LAB BLOOD ORDERABLES Final Res ult documented in this encounter Visit Diagnoses Not on filedocumented in this encounter Care Teams Rattan Worker Relationship Specialty Start Date End Date Gucci Vilchis MD PCP - General 04/16/17 08/08/22 documented as of this encounter
--- OUTSIDE RECORDS SUMMARY | 2024-11-22 10:55 | XMS_ITS | Encounter Summary ---
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 Role Phone Unavailable Primary Care Provider Unavailabl e Encounter Details Date Type Department Care Team (Late st Contact Info) Description 06/09/2011 7:23 AM CDT - 06/09/2011 11:21 AM CDT Hospital Encounter [facility] Siva Beasley MD [address] [facility] [address] [place] [address] Cellulitis and abscess of neck; Tobacco use disorder Social History Tobacco Use Types Packs/Day Years Used Date Smoking Tobacco: Never Assessed Sex and Gender Information Value Date Recorded Sex Assigned at Not on file 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
--- OUTSIDE RECORDS SUMMARY | 2024-11-22 10:55 | XMS_ITS | Encounter Summary ---
Author Organization [facility] Address [address] [facility] [address] [place] [address] Phone Care Team Providers Care Tele Grout Sewer Line Repairer Name Role Phone Gucci Vilchis MD Primary Care Provider [phone] Reason for Visit * Reason Comments Follow-up HIV Positive/AIDS * Infectious Disease (Routine) - Closed Specialty Diagnoses / Procedures Referred By Markell tong Referred To Contact Physician Value Stream Coach / Infectious Diseases Diagnoses RTC 4MTH Procedures VIROLOGY RETURN Gucci Vilchis MD Phone: tel: fax: Antoinette Riley PA [address] [place] [address] Phone: tel: fax: Referral ID Status Reason Start Date Expiration Date Visits Re quested Visits Authorized [id number] Closed 07/15/2019 01/23/[phone] Encounter Details Date Type Department Care Team (Late st Contact Info) Description 10/28/2019 11:00 AM MOTORCYCLE ENGINE ASSEMBLER Office Visit [facility] Infectious Diseases [address] [facility] [address] [place] [address] Antoinette Riley PA [address] [place] [address] HIV disease (CMS/HCC) (Primary Dx); Long-term use of high-risk medication; Screening examination for STD (sexually transmitted disease); Needs flu shot; Healthcare maintenance; Other fatigue Social History Tobacco Use Types Packs/Day Years Used Date Smoking Tobacco: Never Smokeless Tobacco: Never Sex and Gender Information Value Date Recorded Sex Assigned at Not on file Legal Sex Male 7:55 PM MOTORCYCLE ENGINE ASSEMBLER Gender Identity Not on file Sexual Orientation Not on file documented as of this encounter Last Filed Vital Signs Vital Sign Reading Time Taken Comments Blood Pressure 110/74 10/28/2019 11:16 AM MOTORCYCLE ENGINE ASSEMBLER Pulse 76 10/28/2019 11:16 AM MOTORCYCLE ENGINE ASSEMBLER Temperature 37.1 ??C (98.8 ??F) 10/28/2019 11:[address] Respiratory Rate - - Oxygen Saturation - - Inhaled Oxygen Concentration - - Weight 99.5 kg (219 lb 4.8 oz) 10/28/2019 11:16 AM MOTORCYCLE ENGINE ASSEMBLER Height 182.9 cm (6') 10/28/2019 11:16 AM MOTORCYCLE ENGINE ASSEMBLER Body Mass Index 29.74 10/28/2019 11:16 AM MOTORCYCLE ENGINE ASSEMBLER documented in this encounter Progress Notes * Antoinette Riley PA - 10/28/2019 11:00 AM CST Subjective/Objective Patient ID: Dashawn Hoewll is a 48 y.o. male. Chief Complaint Follow-up and HIV Positive/AIDS HPI Mr. DASHAWN HOWELL is a 48 year old man initially diagnosed with HIV in 1998 by patient report. cART history includes Combivir/Sustiva, Truvada/ddI/Prezista/Norvir and Atripla. Past Genotypes: November 2010- ??M184I/M, K103N, L100I/L, and P225H/P; April 2017- K103N, P225H. He is currently on Genvoya/Prezista, Nov 2018: CD4 = 560 (25%), VL = 81 copies. He was last seen in ID clinic in 06/2018, but had labs done in Nov 2018. ?? He presents for a routine visit today and reports to be doing well but admits to poor adherence. 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 As a result of his new routine, he has been forgettinghis medications about half the time. Patient says he then got scared when he felt fatigued and became winded while walking up stairs. In the last week, he resumed 100% adherence. He denies any swelling of the extremities or difficulty breathing at night. He denies fevers, shaking chills, soaking night sweats, rashes, headaches, sore throat, cough, chest pain, abdominal pain, nausea, vomiting, diarrhea, dysuria, pain/swelling in the muscles or joints, numbness/tingling of the extremities. He smokes an occasional Black and Mild. Drinks occasionally. Denies use of any illicit drugs. Reports sex with female partners, but states he is not sexually active. He declines triple screening for STIs today. ? Review of Systems Constitutional: Positive for fatigue. Negative for appetite change, chills, fever and unexpected weight change. HENT: Negative for sore throat and trouble swallowing. Eyes: Negative for visual disturbance. Respiratory: Positive for shortness of breath. Negative for cough and wheezing. Gets winded going up the stairs Cardiovascular: Negative for chest pain, palpitations and leg swelling. Gastrointestinal: Negative for abdominal pain, diarrhea, nausea and vomiting. Genitourinary: Negative for discharge, dysuria, flank pain, genital sores and hematuria. Musculoskeletal: Negative for arthralgias and myalgias. Skin: Negative for rash and wound. Neurological: Negative for dizziness and headaches. Physical Exam Vitals signs reviewed. Constitutional: General: He is not in acute distress. Appearance: Normal appearance. He is normal weight. HENT: Head: Normocephalic and atraumatic. Nose: Nose normal. No congestion or rhinorrhea. Mouth/Throat: Mouth: Mucous membranes are moist. Pharynx: Oropharynx is clear. No oropharyngeal exudate or posterior oropharyngeal erythema. Eyes: General: No scleral icterus. Extraocular Movements: Extraocular movements intact. Conjunctiva/sclera: Conjunctivae normal. Neck: Musculoskeletal: Normal range of motion and neck supple. Cardiovascular: Rate and Rhythm: Normal rate and regular rhythm. Heart sounds: Normal heart sounds. Pulmonary: Effort: Pulmonary effort is normal. Breath sounds: Normal breath sounds. No wheezing or rales. Abdominal: General: Abdomen is flat. Bowel sounds are normal. Palpations: Abdomen is soft. Tenderness: There is no tenderness. Musculoskeletal: Normal range of motion. Lymphadenopathy: Cervical: No cervical adenopathy. Skin: General: Skin is warm and dry. Coloration: Skin is not jaundiced. Findings: No erythema or rash. Neurological: General: No focal deficit present. Mental Status: He is alert and oriented to person, place, and time. Psychiatric: Mood and Affect: Mood normal. Behavior: Behavior normal. Vitals BP 110/74 (BP Location: Right arm, Patient Position: Sitting) Pulse 76 Temp 37.1 ??C (98.8 ??F) (Tympanic) Ht 182.9 cm (6') Wt 99.5 kg (219 lb 4.8 oz) BMI 29.74 kg/m?? HIV Routine Labs: RPR - NR Date: 11/2018 GC/CT NAAT - urine (check q3-6 months if high risk) ??negative Date: 08/2017 GC/CT NAAT - rectum (check q3-6 months if high risk) ??negative Date: 04/2017 GC/CT NAAT - oral (check q3-6 months if high risk) ??negative Date: 04/2017 ?? YEARLY: T spot/quantiferon (or PPD) negative Date: 06/2018 Lipids, fasting TC = 294, Tri = 140, HDL = 51, LDL = 215 ??Date: 06/2018 HbA1c 5.6% (06/2018) Hepatitis C Ab ??Negative ??06/2018 HCV RNA (consider if CD4<200, high risk) ??not applicable Urinalysis 1+ blood 11/2017, 06/2018 ?? BASELINE (check once): HLA B*[id number] ??negative ?Date 11/2013 CMV IgG positive ?Date: 2009 Toxo IgG neg ?Date: 11/2018 Hep A immune Hep B immune G6PD WNL 08/2016 ?? BONE DENSITY: N/A ?? Cancer Screening: Smoking Status: ?Nonsmoker C-scope: order when appropriate PSA: order when appropriate ASCVD: 6.0% 10-year risk.?? Assessment/Plan This is a 48 year old man initially diagnosed with HIV in 1998 by patient report. He is currently on Genvoya/Prezista, Nov 2018: CD4 = 560 (25%), VL = 81 copies. He was last seen in ID clinic in 06/2018, but had labs done in Nov 2018. He presents for a routine visit today and reports to be doing well but admits to poor adherence secondary to a new job/routine. He notes some fatigue and windedness,but is otherwise feeling well. Diagnoses and all orders for this visit: HIV disease (CMS/HCC) (B20) (Primary) Assessment & Plan: Continue Genvoya/Prezista with 100% adherence encouraged to maintain viral suppression and prevent resistance. Undetectable = untransmittable. Risk reduction counseling and adherence counseling provided. Pillbox given. Discussed placing pillbox by toothbrush as visual cue. Discussed setting cell phone alarm as auditory cue. Orders: - CBC with auto differential; Future - Comprehensive metabolic panel (Outreach); Future - T-helper cells (CD4) count; Future - HIV-1 RNA PCR, quantitative; Future - RPR; Future - Lipid panel; Future - Hemoglobin A1c; Future - Urinalysis with reflex for neutropenic patient Urine; Future - N. gonorrhoeae/C. trachomatis Amplification Urine; Future - T-SPOT.TB; Future - Hepatitis C antibody; Future Long-term use of high-risk medication (Z79.899) Assessment & Plan: Routine lab monitoring on custodial HIV meds to assess for drug toxicity and efficacy. Orders: - CBC with auto differential; Future - Comprehensive metabolic panel (Outreach); Future - T-helper cells (CD4) count; Future - HIV-1 RNA PCR, quantitative; Future Screening examination for STD (sexually transmitted disease) (Z11.3) - RPR; Future - N. gonorrhoeae/C. trachomatis Amplification Urine; Future - Hepatitis C antibody; Future Needs flu shot (Z23) Healthcare maintenance (Z00.00) - Lipid panel; Future - Hemoglobin A1c; Future - T-SPOT.TB; Future Other fatigue (R53.83) - TSH reflex to free T4; Future - Testosterone, Total and Free, Serum; Future Other orders - Flu Vaccine MDCK Quad PF 4y+ IM - Flucelvax RTC 3 months The supervising physician present in this office suite for this Physician Value Stream Coach, Antoinette Riley PA-C is Dr. Percy Renae. RCYCLE ENGINE ASSEMBLER documented in this encounter Miscellaneous Notes * Assessment & Plan Note - Antoinette Riley PA - 10/28/2019 2:22 PM MOTORCYCLE ENGINE ASSEMBLER Associated Problem(s): On highly active antiretroviral therapy (HAART) Routine lab monitoring on superintendent terminal HIV meds to assess for drug toxicity and efficacy. RCYCLE ENGINE ASSEMBLER * Assessment & Plan Note - Antoinette Riley PA - 10/28/2019 2:15 PM MOTORCYCLE ENGINE ASSEMBLER Associated Problem(s): HIV infection (HCC) Continue Genvoya/Prezista with 100% adherence encouraged to maintain viral suppression and prevent resistance. Undetectable = untransmittable. Risk reduction counseling and adherence counseling provided. Pillbox given. Discussed placing pillbox by toothbrush as visual cue. Discussed setting cell phone alarm as auditory cue. RCYCLE ENGINE ASSEMBLER documented in this encounter Plan of Treatment Not on file documented as of this encounter Procedures Procedure Name Priority Date/Time Associated Diagnosis Comments N. GONORRHOEAE/C. TRACHOMATIS AMPLIFICATION Routine 10/28/2019 11:48 AM MOTORCYCLE ENGINE ASSEMBLER HIV disease (CMS/HCC) Screening examination for STD (sexually transmitted disease) T-SPOT.TB Routine 10/28/2019 11:48 AM MOTORCYCLE ENGINE ASSEMBLER HIV disease (CMS/HCC) Healthcare maintenance GLUCOSE, RANDOM (OUTREACH) Routine 10/28/2019 11:48 AM MOTORCYCLE ENGINE ASSEMBLER HIV disease (CMS/HCC) Long-term use of high-risk medication DIFFERENTIAL AUTO Routine 10/28/2019 11: 48 AM MOTORCYCLE ENGINE ASSEMBLER HIV disease (CMS/HCC) Long-term use of high-risk medication URINALYSIS WITH REFLEX FOR NEUTROPENIC PATIENT Routine 10/28/2019 11:48 AM MOTORCYCLE ENGINE ASSEMBLER HIV disease (CMS/HCC) THYROID FUNCTION CASCADE Routine 10/28/2019 11:48 AM MOTORCYCLE ENGINE ASSEMBLER Other fatigue COMPREHENSIVE METABOLIC PANEL WITHOUT GLUCOSE (OUTREACH) Routine 10/28/2019 11:48 AM MOTORCYCLE ENGINE ASSEMBLER HIV disease (CMS/HCC) Long-term use of high-risk medication COMPREHENSIVE METABOLIC PANEL (OUTREACH) Routine 10/28/2019 11:48 AM MOTORCYCLE ENGINE ASSEMBLER HIV disease (CMS/HCC) Long-term use of high-risk medication CBC WITH AUTO DIFFERENTIAL Routine 10/28/2019 11:48 AM MOTORCYCLE ENGINE ASSEMBLER HIV disease (CMS/HCC) Long-term use of high-risk medication HEPATITIS C ANTIBODY Routine 10/28/2019 11:48 AM MOTORCYCLE ENGINE ASSEMBLER HIV disease (CMS/HCC) Screening examination for STD (sexually transmitted disease) HIV-1 RNA, QUANTITATIVE, PCR Routine 10/28/2019 11:48 AM MOTORCYCLE ENGINE ASSEMBLER HIV disease (CMS/HCC) Long-term use of high-risk medication RPR Routine 10/28/2019 11:48 AM MOTORCYCLE ENGINE ASSEMBLER HIV disease (CMS/HCC) Screening examination for STD (sexually transmitted disease) T-HELPER CELLS (CD4) COUNT Routine 10/28/2019 11:48 AM MOTORCYCLE ENGINE ASSEMBLER HIV disease (CMS/HCC) Long-term use of high-risk medication TESTOSTERONE, TOTAL AND FREE, SERUM Routine 10/28/2019 11:48 AM MOTORCYCLE ENGINE ASSEMBLER Other fatigue HEMOGLOBIN A1C Routine 10/28/2019 11:48 AM MOTORCYCLE ENGINE ASSEMBLER HIV disease (CMS/HCC) Healthcare maintenance LIPID PANEL Routine 10/28/2019 11:48 AM MOTORCYCLE ENGINE ASSEMBLER HIV disease (CMS/HCC) Healthcare maintenance documented in this encounter Results * Glucose, random (Outreach) (10/28/2019 11:48 AM MOTORCYCLE ENGINE ASSEMBLER) Glucose 97 70 - 199 mg/dL [facility] Comment: Interpretive Data Fasting glucose >/= 126 [...] was last revised 2017. Blood specimen (specimen) 10/28/2019 11:48 AM MOTORCYCLE ENGINE ASSEMBLER 10/28/2019 3:02 PM MOTORCYCLE ENGINE ASSEMBLER Antoinette GANNON LAB BLOOD ORDERABLES Final Result Performing Organization Address City/[facility]/ZIP Co de Phone Number [facility] Department [place] [address] * Comprehensive metabolic panel, without glucose (Outreach) (10/28/2019 11:48 AM MOTORCYCLE ENGINE ASSEMBLER) Sodium 140 135 - 145 mmol/L [facility] Potassium, pl 3.7 3.3 - 4.9 mmol/L [facility] Chloride 105 97 - 110 mmol/L [facility] CO2 27 22 - 32 mmol/L [facility] Anion gap 8 2 - 15 mmol/L [facility] BUN 9 8 - 25 mg/dL [facility] Creatinine 0.87 0.80 - 1.30 mg/dL [facility] Calcium 9.3 8.5 - 10.3 mg/dL [facility] Protein, pl 8.2 6.5 - 8.5 g/dL [facility] Albumin 4.5 3.5 - 5.0 g/dL [facility] Bilirubin, total 0.3 0.1 - 1.2 mg/dL [facility] Alk phos 54 40 - 130 Units/L [facility] AST 24 10 - 50 Units/L [facility] ALT 25 7 - 55 Units/L [facility] Blood specimen (specimen) 10/28/2019 11:48 AM MOTORCYCLE ENGINE ASSEMBLER 10/28/2019 3:02 PM MOTORCYCLE ENGINE ASSEMBLER Antoinette GANNON LAB BLOOD ORDERABLES Final Result Performing Organization Address City/[facility]/ZIP Co de Phone Number [facility] Department [place] [address] * Differential, auto (10/28/2019 11:48 AM MOTORCYCLE ENGINE ASSEMBLER) Neutrophil abs 1.8 1.7 - 6.5 K/cumm [facility] Imm gran abs 0.0 0.0 - 0.1 K/cumm [facility] Lymphocyte abs 2.3 0.8 - 3.3 K/cumm [facility] Monocyte abs 0.4 0.2 - 0.8 K/cumm [facility] Eosinophil abs 0.2 0.0 - 0.5 K/cumm [facility] Basophil abs 0.0 0.0 - 0.1 K/cumm [facility] Neutrophil pct 38.1 % [facility] Comment: Interpretive Data Percent cell count reference ranges are not reported, since discordance with absolute values may lead to misinterpretation of CBC data. Current Interpretive Data was last revised on 2018. Imm gran pct 0.2 % [facility] Comment: Interpretive Data Percent cell count reference ranges are not reported, since discordance with absolute values may lead to misinterpretation of CBC data. Current Interpretive Data was last revised on 2018. Lymphocyte pct 49.7 % [facility] Comment: Interpretive Data Percent cell count reference ranges are not reported, since discordance with absolute values may lead to misinterpretation of CBC data. Current Interpretive Data was last revised on 2018. Monocyte pct 7.5 % [facility] Comment: Interpretive Data Percent cell count reference ranges are not reported, since discordance with absolute values may lead to misinterpretation of CBC data. Current Interpretive Data was last revised on 2018. Eosinophil pct 3.9 % [facility] Comment: Interpretive Data Percent cell count reference ranges are not reported, since discordance with absolute values may lead to misinterpretation of CBC data. Current Interpretive Data was last revised on 2018. Basophil pct 0.6 % [facility] Comment: Interpretive Data Percent cell count reference ranges are not reported, since discordance with absolute values may lead to misinterpretation of CBC data. Current Interpretive Data was last revised on 2018. Blood specimen (specimen) 10/28/2019 11:48 AM MOTORCYCLE ENGINE ASSEMBLER 10/28/2019 3:02 PM MOTORCYCLE ENGINE ASSEMBLER Antoinette GANNON LAB BLOOD ORDERABLES Final Result [facility] Department [place] [address] * Testosterone, Total and Free, Serum (10/28/2019 11:48 AM MOTORCYCLE ENGINE ASSEMBLER) Testosterone 441 240 - 950 ng/dL [facility] Comment: ADDITIONAL INFORMATION Testing performed by Liquid Chromatography-Tandem Mass Spectrometry (LC-MS/MS). This test was developed and its performance characteristics determined by [facility] in a manner consistent with CLIA requirements. This test has not been cleared or approved by the U.S. Food and Drug Administration. Test Performed by: [facility] - [address] [address] [employer] Pul[employer]: Bo Hair M.D. Ph.D.; CLIA# [id number] Testosterone, free 7.06 4.26 - 16.4 ng/dL [facility] Comment: ADDITIONAL INFORMATION Testing performed by [facility]. This test was developed and its performance characteristics determined by [facility] in a manner consistent with CLIA requirements. This test has not been cleared or approved by the U.S. Food and Drug Administration. Blood specimen (specimen) 10/28/2019 11:48 AM MOTORCYCLE ENGINE ASSEMBLER 10/28/2019 4:36 PM MOTORCYCLE ENGINE ASSEMBLER Antoinette GANNON LAB BLOOD ORDERABLES Final Result [facility] Department [place] [address] * TSH reflex to free T4 (10/28/2019 11:48 AM MOTORCYCLE ENGINE ASSEMBLER) TSH 1.70 0.30 - 4.20 mcIUnit/mL [facility] Blood specimen (specimen) 10/28/2019 11:48 AM MOTORCYCLE ENGINE ASSEMBLER 10/28/2019 3:02 PM MOTORCYCLE ENGINE ASSEMBLER Antoinette GANNON LAB BLOOD ORDERABLES Final Result Performing Organization Address [facility] [place] [address] * Hepatitis C antibody (10/28/2019 11:48 AM MOTORCYCLE ENGINE ASSEMBLER) [facility] Hep C Ab Nonreactive Nonreactive [facility] Comment: Interpretive Data Positive results should be confirmed by a molecular method. If positive, a second separately collected sample should be submitted for Hepatitis C Virus (HCV) RNA Detection and Quantitation by Real-Time Reverse Jewel Hole Driller-PCR (RT-PCR). Current interpretive data was last revised on 2016. Blood specimen (specimen) 10/28/2019 11:48 AM MOTORCYCLE ENGINE ASSEMBLER 10/28/2019 3:02 PM MOTORCYCLE ENGINE ASSEMBLER Antoinette GANNON LAB MICROBIOLOGY - GENERAL ORDERABLES Edited Result - Final Performing Organization Address [facility] [place] [address] * T-SPOT.TB (10/28/2019 11:48 AM MOTORCYCLE ENGINE ASSEMBLER) [facility] T-SPOT.TB Negative Negative [facility] Comment: Limitations from the T-SPOT.TB Package Insert p.15 Results from T-SPOT.TB testing must be used in conjunction with each individual's epidemiological history, current medical status and results of other diagnostic evaluations.The performance of T-SPOT.TB has not been adequately evaluated with specimens from individuals younger than 17 years, in women, and in patients with hemophilia. A false positive result was obtained for T-SPOT.TB when tested in subjects with M. xenopi, M. kansasii and M. gordonae. While ESAT-6 and CFP10 antigens are absent from BCG strains of M. bovis and from most environmental mycobacteria, it is possible that a positive T-SPOT.TB result may be due to infection with M. kansasii, M. szulgai, M. gordonae or M. marinum. Alternative tests would be required if these infections are suspected. A negative test result does not exclude the possibility of exposure to, or infection with M. tuberculosis. Patients with recent exposure to TB infected individuals exhibiting a negative T-SPOT.TB result should be considered for retesting within 6 weeks or if other relevant clinical symptoms indicate possible infection. A positive test result does not rule in active TB disease; other tests should be performed to confirm the diagnosis of active TB disease such as sputum smear and culture, PCR, and chest radiography. T-SPOT.TB has not been evaluated in subjects who have received >1 month of anti-TB therapy. Refrigerated and frozen samples are not recommended for use with T-SPOT.TB test. T-Spot testing performed by [employer], [address] [place] [address]. [id number] A negative test result does not exclude [...] test. T-SPOT.TB Panel A Spot Count 0 [facility] T-SPOT.TB Panel B Spot Count 0 [facility] T-SPOT.TB Negative Control Passed [facility] T-SPOT.TB Positive Control Passed [facility] Blood specimen (specimen) 10/28/2019 11:48 AM MOTORCYCLE ENGINE ASSEMBLER 10/28/2019 3:31 PM MOTORCYCLE ENGINE ASSEMBLER us Antoinette GANNON LAB MICROBIOLOGY - GENERAL ORDERABLES Final Result [facility] Department [place] [address] * N. gonorrhoeae/C. trachomatis Amplification Urine (10/28/2019 11:48 AM MOTORCYCLE ENGINE ASSEMBLER) Pathologist [facility] C. trachomatis Not Detected Not Detected [facility] N. gonorrhoeae Not Detected Not Detected [facility] Comment: Interpretive Data Testing performed by the [facility]. This assay detects Chlamydia trachomatis and Neisseria gonorrhoeae by nucleic acid amplification testing (NAAT). This test is approved by the [facility] Food and Drug Administration and the performance characteristics have been verified by the laboratory. The performance characteristics of this test have not been evaluated in individuals less than 14 years of age. Current Interpretive Data was last revised on 2018. Urine (None) 10/28/2019 11:4 8 AM MOTORCYCLE ENGINE ASSEMBLER 10/28/2019 6:06 PM MOTORCYCLE ENGINE ASSEMBLER Antoinette GANNON LAB MICROBIOLOGY - GENERAL ORDERABLES Final Result [facility] Department [place] [address] * Urinalysis with reflex for neutropenic patient Urine (10/28/2019 11:48 AM MOTORCYCLE ENGINE ASSEMBLER) Pathologist [facility] Color, ur Yellow Yellow [facility] Clarity, ur Clear Clear [facility] Specific gravity, ur 1.019 1.010 - 1.025 [facility] pH, urine 5 [facility] Protein, ur ql Negative Negative [facility] Glucose, ur ql Negative Negative [facility] Ketones, ur Negative Negative [facility] Bilirubin, ur Negative Negative [facility] Blood, ur Negative Negative [facility] Urobilinogen, ur <2.0 <2.0 mg/dL [facility] Nitrite, ur Negative Negative [facility] Leukocyte esterase, ur Negative Negative [facility] Urine 10/28/2019 11:4 8 AM MOTORCYCLE ENGINE ASSEMBLER 10/28/2019 3:03 PM MOTORCYCLE ENGINE ASSEMBLER Narrative [facility] - 10/28/2019 3:30 PM MOTORCYCLE ENGINE ASSEMBLER ?? Urine pH is affected by diet, medications, systemic acid-base disturbances, and renal tubular function. ??pH may affect urinary stone formation. ??For example, urine pH below 6.0 may help reduce the tendency for calcium phosphate stones and pH greater than 6.0 may reduce the tendency for uric acid stone formation. Source: [facility] [place]. Last revised 11-22-2017 Antoinette GANNON LAB MICROBIOLOGY - GENERAL ORDERABLES Final Result Performing Organization Address [facility] Phone Number [facility] [place] [address] * (ABNORMAL) Hemoglobin A1c (10/28/2019 11:48 AM MOTORCYCLE ENGINE ASSEMBLER) Hgb A1C 6.0(H) 4.0 - 5.6 % [facility] Estimated Average Glucose 126 mg/dL [facility] Comment: The ADA recommends reporting an estimated Average Glucose (eAG) with all Hemoglobin A1c results using the equation derived from a study of 507 normal and diabetic adults. ??Minority populations were underrepresented and children were not included. ?? (Diabetes Care 31:1867-8508, 2008). ??The eAG is not equivalent to a fasting glucose. Blood specimen (specimen) 10/28/2019 11:48 AM MOTORCYCLE ENGINE ASSEMBLER 10/28/2019 3:02 PM MOTORCYCLE ENGINE ASSEMBLER Antoinette GANNON LAB BLOOD ORDERABLES Final Result Performing Organization Address [facility] Phone Number [facility] [place] [address] * (ABNORMAL) Lipid panel (10/28/2019 11:48 AM MOTORCYCLE ENGINE ASSEMBLER) Cholesterol 224(H) 30 - 199 mg/dL [facility] Comment: Interpretive Data Ages < or = [...] Data was last revised on 2018. Triglycerides 121 <=149 mg/dL [facility] Comment: Interpretive Data Ages < or = [...] Data was last revised on 2018. HDL 39(L) >=40 mg/dL [facility] Comment: Interpretive Data Ages < or = [...] was last revised on 2018. LDL, calculated 161(H) <=129 mg/dL [facility] Comment: Interpretive Data Ages < or = [...] was last revised on 2018. Non-HDL Cholesterol 185 mg/dL [facility] Comment: Interpretive Data Ages < or = [...] last revised on 2018. Chol/HDL ratio 6 [facility] Blood specimen (specimen) 10/28/2019 11:48 AM MOTORCYCLE ENGINE ASSEMBLER 10/28/2019 3:02 PM MOTORCYCLE ENGINE ASSEMBLER Antoinette GANNON LAB BLOOD ORDERABLES Final Result [facility] [place] [address] * RPR (10/28/2019 11:48 AM MOTORCYCLE ENGINE ASSEMBLER) [facility] RPR Nonreactive Nonreactive [facility] Blood specimen (specimen) 10/28/2019 11:48 AM MOTORCYCLE ENGINE ASSEMBLER 10/28/2019 3:02 PM MOTORCYCLE ENGINE ASSEMBLER Antoinette GANNON LAB MICROBIOLOGY - GENERAL ORDERABLES Final Result Performing Organization Address City/[facility]/[place] [address] * (ABNORMAL) HIV-1 RNA PCR, quantitative (10/28/2019 11:48 AM MOTORCYCLE ENGINE ASSEMBLER) [facility] HIV-1 RNA Detected( A) [facility] Comment: Interpretive Data: The quantifiable range of this assay is 20 copies/mL to 10,000,000 copies/mL (1.30 log copies/mL to 7.00 log copies/mL). ??Testing was performed by the [employer]EL[employer] AmpliPrep/NIELS TaqMan HIV-1 Test version 2.0 ([employer] Testing performed at [facility] Current Interpretive Data was last revised on 2015. HIV-1 RNA, copies/mL 469 copies/mL [facility] HIV-1 RNA, log 2.67 log cps/mL [facility] Blood specimen (specimen) 10/28/2019 11:48 AM MOTORCYCLE ENGINE ASSEMBLER 10/28/2019 5:12 PM MOTORCYCLE ENGINE ASSEMBLER Antoinette GANNON LAB MICROBIOLOGY - GENERAL ORDERABLES Final Result Performing Organization Address City/[facility]/ZIP [place] [address] * (ABNORMAL) T-helper cells (CD4) count (10/28/2019 11:48 AM MOTORCYCLE ENGINE ASSEMBLER) [facility] CD4 pct 22(L) 31 - 64 % [facility] CD4 Absolute 442 365 - 1,294 cells/mcL [facility] Blood specimen (specimen) 10/28/2019 11:48 AM MOTORCYCLE ENGINE ASSEMBLER 10/28/2019 3:02 PM MOTORCYCLE ENGINE ASSEMBLER Antoinette GANNON LAB BLOOD ORDERABLES Final Result Performing Organization Address City/[facility] Co de Phone Number [facility] Department [place] [address] * (ABNORMAL) CBC with auto differential (10/28/2019 11:48 AM MOTORCYCLE ENGINE ASSEMBLER) Pathologist [facility] WBC 4.6 3.8 - 9.9 K/cumm [facility] Hgb 12.6(L) 13.0 - 17.5 g/dL [facility] Hct 38.8(L) 38.9 - 50.3 % [facility] Plt 263 150 - 400 K/cumm [facility] MPV 10.4 9.1 - 12.3 fL [facility] RBC 4.70 4.30 - 5.80 M/cumm [facility] MCV 82.6 81.3 - 96.4 fL [facility] MCH 26.8(L) 27.1 - 33.3 pg [facility] MCHC 32.5 32.3 - 35.7 g/dL [facility] RDW CV 13.2 11.1 - 14.9 % [facility] RDW SD 39.8 35.7 - 48.1 fL [facility] NRBC abs 0.00 0.00 - 0.01 K/cumm [facility] Blood specimen (specimen) 10/28/2019 11:48 AM MOTORCYCLE ENGINE ASSEMBLER 10/28/2019 3:02 PM MOTORCYCLE ENGINE ASSEMBLER Antoinette GANNON LAB BLOOD ORDERABLES Final Result Performing Organization Address City/[facility]/ZIP Co de Phone Number [facility] Department [place] [address] documented in this encounter Visit Diagnoses Diagnosis HIV disease (CMS/HCC) (HCC)- Primary Human immunodeficiency virus [HIV] disease Long-term use of high-risk medication Screening examination for STD (sexually transmitted disease) Needs flu shot Need for prophylactic vaccination and inoculation against influenza Healthcare maintenance Other fatigue documented in this encounter Orders Immunization/Injection Count Last Ordered Date First Ordered Date FLU VACCINE MDCK QUAD PF 4Y+ IM - FLUCELVAX 1 10/28/2019 documented in this encounter Care Teams Tele Grout Sewer Line Repairer Relationship Specialty Start Date End Date Gucci Vilchis MD PCP - General 04/16/17 08/08/22 [facility] Bi Tester 10/30/18 12/08/21 documented as of this encounter
--- OUTSIDE RECORDS SUMMARY | 2024-11-22 10:55 | XMS_ITS | Encounter Summary ---
Author Organization [facility] Address [address] [facility] [address] [place] [address] Phone Care Team Providers Care Chairperson Anesthesiology Name Role Phone Gucci Vilchis MD Primary Care Provider [phone] Reason for Visit * Reason Onset Date Comments lab Results 08/02/2018 Encounter Details Date Type Department Care Team (Late st Contact Info) Description 08/02/2018 Telephone [facility] Infectious Diseases [address] [place] [address] [address] [place] [address] Francheska Gunderson CMA lab Results Social History Tobacco Use Types Packs/Day Years Used Date Smoking Tobacco: Never Smokeless Tobacco: Never Sex and Gender Information Value Date Recorded Sex Assigned at Not on file Legal Sex Male 7:55 PM BUSINESS ADMINISTRATION PROGRAM CHAIR Gender Identity Not on file Sexual Orientation Not on file documented as of this encounter Miscellaneous Notes * Telephone Encounter - Ashley Sanderson RN - 08/02/2018 2:10 PM CDT Provided labs and offered patient portal * Telephone Encounter - Francheska Gunderson MA - 08/02/2018 1:19 PM CDT Pt called back to speak with you. * Telephone Encounter - Ashley Sanderson RN - 08/02/2018 12:48 PM CDT Attempted to reach pt - phone not working welll. Pt to call back * Telephone Encounter - Francheska Gunderson MA - 08/02/2018 8:15 AM CDT Pt is calling for lab results. documented in this encounter Plan of Treatment Not on file documented as of this encounter Visit Diagnoses Not on filedocumented in this encounter Care Teams Chairperson Anesthesiology Relationship Specialty Start Date End Date Gucci Vilchis MD PCP - General 04/16/17 08/08/22 documented as of this encounter
--- OUTSIDE RECORDS SUMMARY | 2024-11-22 10:55 | XMS_ITS | Encounter Summary ---
Author Organization [facility] Address [address] [facility] [address] [place] [address] Phone Care Team Providers Care Med Specialist Name Role Phone Gucci Vilchis MD Primary Care Provider [phone] Encounter Details Date Type Department Care Team (Late st Contact Info) Description 12/05/2018 9:00 AM MEDIA SALES CONSULTANT Office Visit [facility] Infectious Diseases [address] [place] [id number] Exposure to communicable disease (Primary Dx) Social History Tobacco Use Types Packs/Day Years Used Date Smoking Tobacco: Never Smokeless Tobacco: Never Sex and Gender Information Value Date Recorded Sex Assigned at Not on file Legal Sex Male 7:55 PM MEDIA SALES CONSULTANT Gender Identity Not on file Sexual Orientation Not on file documented as of this encounter Progress Notes * Risa Chase MA - 12/05/2018 9:00 AM CST PT CAME IN FOR INJECTION A SALES CONSULTANT documented in this encounter Plan of Treatment Not on file documented as of this encounter Visit Diagnoses Diagnosis Exposure to communicable disease- Primary Contact with or exposure to unspecified communicable disease documented in this encounter Administered Medications Inactive Administered Medications - up to 3 most recent administrations Medication Order MAR Action Action Date Dose Rate Site penicillin G benzathine (BICILLIN-LA) injection 2.4 Million Units 2.4 Million Units, intramuscular, Once, On Sun12/04/18 at 1200, For 1 dose, Refrigerate, Indications: Sexually Transmitted InfectionIndications :Sexually Transmitted Infection Given 12/05/2018 9:18 AM MEDIA SALES CONSULTANT 2.4 Million Units Right Ventrogluteal documented in this encounter Care Teams Med Specialist Relationship Specialty Start Date End Date Gucci Vilchis MD PCP - General 04/16/17 08/08/[address] [facility] [address] Mender 10/30/18 12/08/21 documented as of this encounter
--- OUTSIDE RECORDS SUMMARY | 2024-11-22 10:55 | XMS_ITS | Encounter Summary ---
Author [facility] Care Team Providers Care Charge Weigher Name Role Phone Unavailable Primary Care Provider Unavailabl e Encounter Details Date Type Department Care Team (Late st Contact Info) Description 11/25/2013 - 11/11/2014 11:59 PM CUSTOMER RETENTION REPRESENTATIVE Hospital Encounter [facility] Social History Tobacco Use Types Packs/Day Years Used Date Smoking Tobacco: Never Assessed Sex and Gender Information Value Date Recorded Sex Assigned at Not on file Legal Sex Male 7:55 PM CUSTOMER RETENTION REPRESENTATIVE Gender Identity Not on file Sexual Orientation Not on file documented as of this encounter Plan of Treatment Not on file documented as of this encounter Procedures Procedure Name Priority Date/Time Associated Diagnosis Comments CYTOLOGY 11/25/2013 documented in this encounter Results * Cytology (11/25/2013) Narrative 11/25/2013 Ordered by an unspecified provider. us Historical Provider LAB CYTOLOGY ORDERABLES F inal Result documented in this encounter Visit Diagnoses Not on filedocumented in this encounter
--- OUTSIDE RECORDS SUMMARY | 2024-11-22 10:55 | XMS_ITS | Encounter Summary ---
Author Organization [facility] Address [address] [place] [address] Phone Care Team Providers Care Nursing Assistants Teacher Name Role Phone Gucci Vilchis MD Primary Care Provider [phone] Encounter Details Date Type Department Care Team (Late st Contact Info) Description 12/05/2018 Orders Only [facility] Infectious Diseases [address] [place] [address] [address] [place] [address] Antoinette Riley PA [facility] [address] [facility] [address] [place], [place] [id number] STD exposure; HIV disease (CMS/HCC) Social History Tobacco Use Types Packs/Day Years Used Date Smoking Tobacco: Never Smokeless Tobacco: Never Sex and Gender Information Value Date Recorded Sex Assigned at Not on file Legal Sex Male 7:55 PM COIL WINDER HAND Gender Identity Not on file Sexual Orientation Not on file documented as of this encounter Plan of Treatment Not on file documented as of this encounter Procedures Procedure Name Priority Date/Time Associated Diagnosis Comments GLUCOSE, RANDOM (OUTREACH) Routine 12/05/2018 9:03 AM COIL WINDER HAND HIV disease (CMS/HCC) DIFFERENTIAL AUTO Routine 12/05/2018 9:0 3 AM COIL WINDER HAND HIV disease (CMS/HCC) COMPREHENSIVE METABOLIC PANEL WITHOUT GLUCOSE (OUTREACH) Routine 12/05/2018 9:03 AM COIL WINDER HAND HIV disease (CMS/HCC) COMPREHENSIVE METABOLIC PANEL (OUTREACH) Routine 12/05/2018 9:03 AM COIL WINDER HAND HIV disease (CMS/HCC) CBC WITH AUTO DIFFERENTIAL Routine 12/05/2018 9:03 AM COIL WINDER HAND HIV disease (CMS/HCC) HIV-1 RNA, QUANTITATIVE, PCR Routine 12/05/2018 9:03 AM COIL WINDER HAND HIV disease (CMS/HCC) TOXOPLASMA GONDII ANTIBODY, IGG Routine 12/05/2018 9:03 AM COIL WINDER HAND HIV disease (CMS/HCC) RPR Routine 12/05/2018 9:03 AM COIL WINDER HAND STD exposure HIV disease (CMS/HCC) T-HELPER CELLS (CD4) COUNT Routine 12/05/2018 9:03 AM COIL WINDER HAND HIV disease ([facility]/HCC) documented in this encounter Results * Glucose, random (Outreach) (12/05/2018 9:03 AM COIL WINDER HAND) Glucose 97 70 - 199 mg/dL [facility] Comment: [...] was last revised 2017. Blood specimen (specimen) 12/05/2018 9:03 AM COIL WINDER HAND 12/05/2018 12:36 PM COIL WINDER HAND Narrative [facility] - 12/05/2018 1:10 PM COIL WINDER HAND Antoinette GANNON LAB BLOOD ORDERABLES Final Result [facility] Department [place] [address] * Comprehensive metabolic panel, without glucose (Outreach) (12/05/2018 9:03 AM COIL WINDER HAND) Sodium 139 135 - 145 mmol/L [facility] Potassium, pl 3.5 3.3 - 4.9 mmol/L [facility] Chloride 102 97 - 110 mmol/L [facility] CO2 30 22 - 32 mmol/L [facility] Anion gap 8 2 - 15 mmol/L [facility] BUN 9 8 - 25 mg/dL [facility] Creatinine 1.05 0.80 - 1.30 mg/dL [facility] Calcium 9.3 8.5 - 10.3 mg/dL [facility] Protein, pl 8.0 6.5 - 8.5 g/dL [facility] Albumin 4.6 3.5 - 5.0 g/dL [facility] Bilirubin, total 0.2 0.1 - 1.2 mg/dL [facility] Alk phos 69 40 - 130 Units/L [facility] AST 23 10 - 50 Units/L [facility] ALT 26 7 - 55 Units/L [facility] Blood specimen (specimen) 12/05/2018 9:03 AM COIL WINDER HAND 12/05/2018 12:36 PM COIL WINDER HAND Narrative [facility] - 12/05/2018 1:09 PM COIL WINDER HAND Antoinette GANNON LAB BLOOD ORDERABLES Final Result [facility] Department [place] [address] * Differential, auto (12/05/2018 9:03 AM COIL WINDER HAND) Neutrophil abs 1.7 1.7 - 6.5 K/cumm [facility] Imm gran abs 0.0 0.0 - 0.1 K/cumm [facility] Lymphocyte abs 2.1 0.8 - 3.3 K/cumm [facility] Monocyte abs 0.4 0.2 - 0.8 K/cumm [facility] Eosinophil abs 0.1 0.0 - 0.5 K/cumm [facility] Basophil abs 0.0 0.0 - 0.1 K/cumm [facility] Neutrophil pct 39.1 % [facility] Comment: Interpretive Data Percent cell count reference ranges are not reported, since discordance with absolute values may lead to misinterpretation of CBC data. Current Interpretive Data was last revised on 2018. Imm gran pct 0.0 % [facility] Comment: Interpretive Data Percent cell count reference ranges are not reported, since discordance with absolute values may lead to misinterpretation of CBC data. Current Interpretive Data was last revised on 2018. Lymphocyte pct 48.1 % [facility] Comment: Interpretive Data Percent cell count reference ranges are not reported, since discordance with absolute values may lead to misinterpretation of CBC data. Current Interpretive Data was last revised on 2018. Monocyte pct 10.0 % [facility] Comment: Interpretive Data Percent cell count reference ranges are not reported, since discordance with absolute values may lead to misinterpretation of CBC data. Current Interpretive Data was last revised on 2018. Eosinophil pct 1.9 % [facility] Comment: Interpretive Data Percent cell count reference ranges are not reported, since discordance with absolute values may lead to misinterpretation of CBC data. Current Interpretive Data was last revised on 2018. Basophil pct 0.9 % [facility] Comment: Interpretive Data Percent cell count reference ranges are not reported, since discordance with absolute values may lead to misinterpretation of CBC data. Current Interpretive Data was last revised on 2018. Blood specimen (specimen) 12/05/2018 9:03 AM COIL WINDER HAND 12/05/2018 12:36 PM COIL WINDER HAND [facility] - 12/05/2018 12:50 PM COIL WINDER HAND us Antoinette GANNON LAB BLOOD ORDERABLES Final Result [facility] Department [place] [address] * Toxoplasma gondii antibody, IgG (12/05/2018 9:03 AM COIL WINDER HAND) Toxoplasma IgG Negative Negative [facility] Comment: Interpretive Data Negative - ??No detectable antibody. Equivocal - Presence of detectable antibody cannot be determined. Positive - ??Detectable level of antibody present. Current interpretive data was last revised on 2017. Blood specimen (specimen) 12/05/2018 9:03 AM COIL WINDER HAND 12/05/2018 12:36 PM COIL WINDER HAND Narrative [facility] - 12/05/2018 2:52 PM COIL WINDER HAND Antoinette GANNON LAB MICROBIOLOGY - GENERAL ORDERABLES Final Result Performing Organization Address City/[facility] Co de Phone Number [facility] [place] [address] * (ABNORMAL) HIV-1 RNA PCR, quantitative (12/05/2018 9:03 AM COIL WINDER HAND) [facility] HIV-1 RNA Detected( A) [facility] Comment: Interpretive Data: The quantifiable range of this assay is 20 copies/mL to 10,000,000 copies/mL (1.30 log copies/mL to 7.00 log copies/mL). ??Testing was performed by the [employer] AmpliPrep/NIELS TaqMan HIV-1 Test version 2.0 ([employer] Testing performed at [facility] Current Interpretive Data was last revised on 2015. HIV-1 RNA, copies/mL 81 copies/mL [facility] HIV-1 RNA, log 1.91 log cps/mL [facility] Blood specimen (specimen) 12/05/2018 9:03 AM COIL WINDER HAND 12/05/2018 1:02 PM COIL WINDER HAND Narrative [facility] - 12/06/2018 3:09 PM COIL WINDER HAND Antoinette GANNON LAB MICROBIOLOGY - GENERAL ORDERABLES Final Result Performing Organization Address City/[facility] Co de Phone Number [facility] [place] [address] * (ABNORMAL) T-helper cells (CD4) count (12/05/2018 9:03 AM COIL WINDER HAND) [facility] CD4 pct 25(L) 31 - 64 % [facility] CD4 Absolute 560 365 - 1,294 cells/mcL [facility] Blood specimen (specimen) 12/05/2018 9:03 AM COIL WINDER HAND 12/05/2018 12:36 PM COIL WINDER HAND Narrative [facility] - 12/05/2018 8:15 PM COIL WINDER HAND Antoinette GANNON LAB BLOOD ORDERABLES Final Result Performing Organization Address City/[facility]/ZIP Co de Phone Number [facility] Department [place] [address] * CBC with auto differential (12/05/2018 9:03 AM COIL WINDER HAND) [facility] WBC 4.3 3.8 - 9.9 K/cumm [facility] Hgb 13.0 13.0 - 17.5 g/dL [facility] Hct 39.0 38.9 - 50.3 % [facility] Plt 218 150 - 400 K/cumm [facility] MPV 10.9 9.1 - 12.3 fL [facility] RBC 4.62 4.30 - 5.80 M/cumm [facility] MCV 84.4 81.3 - 96.4 fL [facility] MCH 28.1 27.1 - 33.3 pg [facility] MCHC 33.3 32.3 - 35.7 g/dL [facility] RDW CV 13.6 11.1 - 14.9 % [facility] RDW SD 42.3 35.7 - 48.1 fL [facility] NRBC abs 0.00 0.00 - 0.01 K/cumm [facility] Blood specimen (specimen) 12/05/2018 9:03 AM COIL WINDER HAND 12/05/2018 12:36 PM COIL WINDER HAND Narrative [facility] - 12/05/2018 12:50 PM COIL WINDER HAND Antoinette GANNON LAB BLOOD ORDERABLES Final Result Performing Organization Address City/[facility]/ZIP Co de Phone Number [facility] Department [place] [address] * RPR, serum (12/05/2018 9:03 AM COIL WINDER HAND) RPR Non-React jason Non-React jason [facility] Comment: Interpretive Data Testing performed by Multiplex Flow Immunoassay. Current interpretive data was last revised on 18. Blood specimen (specimen) 12/05/2018 9:03 AM COIL WINDER HAND 12/05/2018 12:36 PM COIL WINDER HAND Narrative [facility] - 12/05/2018 2:51 PM COIL WINDER HAND Antoinette GANNON LAB MICROBIOLOGY - GENERAL ORDERABLES Final Result [facility] Department [place] [address] documented in this encounter Visit Diagnoses Diagnosis STD exposure HIV disease (CMS/HCC) (HCC) Human immunodeficiency virus [HIV] disease documented in this encounter Care Teams Nursing Assistants Teacher Relationship Specialty Start Date End Date Gucci Vilchis MD PCP - General 04/16/17 08/08/22 [facility] Media Services Coordinator 10/30/18 12/08/21 documented as of this encounter
--- OUTSIDE RECORDS SUMMARY | 2024-11-22 10:55 | XMS_ITS | Encounter Summary ---
Author Organization [facility] Healthcare Address [address] [place] [address] Care Team Providers Care General Manager Food Name Role Phone Gucci Vilchis MD Primary Care Provider [phone] Encounter Details Date Type Department Care Team (Latest Contact Info) Description 04/16/2017 10:15 AM CDT - 04/16/2017 11:59 PM CDT Hospital Encounter [facility] [phone] Eugenio Madera MD [address] [facility] [address] [place] [address] Discharge Disposition: Discharge to home or self care Social History Tobacco Use Types Packs/Day Years Used Date Smoking Tobacco: Never Assessed Sex and Gender Information Value Date Recorded Sex Assigned at Not on file Legal Sex Male 7:55 PM QUARTER LINING SMOOTHER Gender Identity Not on file Sexual Orientation Not on file documented as of this encounter Medications at Time of Discharge darunavir ethanolate (PREZISTA) 800 mg tablet TAKE ONE TABLET (800 MG) BY MOUTH ONCE DAILY WITH FOOD. STORE AT ROOMTEMPERATURE . 08/16/2016 8 lxypanq-apu-orfx i-tenof ALAFEN (GENVOYA) [phone] mg tablet TAKE ONE TABLET BY MOUTH [...] Associated Diagnosis Comments N. GONORRHOEAE/C. TRACHOMATIS AMPLIFICATION TEST Routine Gen Lab 04/16/2017 10:15 AM CDT N. GONORRHOEAE/C. TRACHOMATIS AMPLIFICATION TEST Routine Gen Lab 04/16/2017 10:15 AM CDT documented in this encounter Results * N. gonorrhoeae/C. trachomatis amplification test (04/16/2017 10:15 AM CDT) Report Final Report: Negative for: ??Chlamydia trachomatis rRNA Negative for: ??Neisseria gonorrhoeae rRNA [facility] Throat 04/16/2017 10:1 5 AM CDT 04/16/2017 8:25 PM CDT Narrative [facility] - 04/17/2017 3:08 PM CDT Testing performed by the Gen-Probe [employer] APTIMA Combo 2 Assay. This nucleic acid amplification test (NAAT) detects ribosomal RNA (rRNA) from Chlamydia trachomatis and Neisseria gonorrhoeae using target capture,and Healthcare Economics Manager-Mediated Amplification (TMA). This test is approved by the [place] Food and Drug Administration for endocervical, vaginal, and male urethral swab specimens, in addition to male and female urine specimens. The performance characteristics for these specimen types have been verified by the [facility].The performance characteristics of this assay for pharyngeal and rectal specimens collected from cervical swab collection devices have been validated and verified by the [facility]. Verification studies support a [...] MICROBIOLOGY - GEN ERAL ORDERABLES Final Result [facility] Department [place] [address] * N. gonorrhoeae/C. trachomatis amplification test (04/16/2017 10:15 AM CDT) Report Final Report: Negative for: ??Chlamydia trachomatis rRNA Negative for: ??Neisseria gonorrhoeae rRNA [facility] Rectal swab 04/16/2017 10:1 5 AM CDT 04/16/2017 8:25 PM CDT Narrative [facility] - 04/16/2017 8:25 PM CDT Testing performed by the Gen-Probe [employer] APTIMA Combo 2 Assay. This nucleic acid amplification test (NAAT) detects ribosomal RNA (rRNA) from Chlamydia trachomatis and Neisseria gonorrhoeae using target capture,and Healthcare Economics Manager-Mediated Amplification (TMA). This test is approved by the [place] Food and Drug Administration for endocervical, vaginal, and male urethral swab specimens, in addition to male and female urine specimens. The performance characteristics for these specimen types have been verified by the [facility].The performance characteristics of this assay for pharyngeal and rectal specimens collected from cervical swab collection devices have been validated and verified by the [facility]. Verification studies support a [...] MICROBIOLOGY - GEN ERAL ORDERABLES Final Result [facility] [address] [facility] Department [place] [address] documented in this encounter Visit Diagnoses Not on filedocumented in this encounter Care Teams General Manager Food Relationship Specialty Start Date End Date Gucci Vilchis MD PCP - General 04/16/17 08/08/22 documented as of this encounter
--- OUTSIDE RECORDS SUMMARY | 2024-11-22 10:55 | XMS_ITS | Encounter Summary ---
Author Organization [facility] Healthcare Address [address] [place] [address] Care Team Providers Care Tellers Supervisor Name Role Phone Gucci Vilchis MD Primary Care Provider [phone] Encounter Details Date Type Department Care Team (Latest Contact Info) Description 11/20/2017 11:07 AM SENIOR ACCOUNTANT - 11/20/2017 11:59 PM SENIOR ACCOUNTANT Hospital Encounter [facility] [phone] Jodi May MD [address] [facility] [address] [place] [address] Discharge Disposition: Discharge to home or self care Social History Tobacco Use Types Packs/Day Years Used Date Smoking Tobacco: Never Assessed Sex and Gender Information Value Date Recorded Sex Assigned at Not on file Legal Sex Male 7:55 PM SENIOR ACCOUNTANT Gender Identity Not on file Sexual Orientation Not on file documented as of this encounter Medications at Time of Discharge darunavir ethanolate (PREZISTA) 800 mg tablet TAKE ONE TABLET (800 MG) BY MOUTH ONCE DAILY WITH FOOD. STORE AT ROOMTEMPERATURE . 08/16/2016 8 cuknirc-whv-bten i-tenof ALAFEN (GENVOYA) [phone] mg tablet TAKE ONE TABLET BY MOUTH ONCE DAILY WITH FOOD. STORE IN ORIGINAL CONTAINER AT ROOM TEMPERATURE. 08/16/2016 8 documented as of this encounter Discharge Disposition Disposition Code Departure Means Destination Discharge to home or self care documented in this encounter Plan of Treatment Not on file documented as of this encounter Procedures Procedure Name Priority Date/Time Associated Diagnosis Comments T-SPOT.TB Routine Gen Lab 07/05/2018 10:29 AM CDT CS GLUCOSE Routine Gen Lab 11/20/2017 11:14 AM SENIOR ACCOUNTANT DIFFERENTIAL AUTO Routine Gen Lab 11/20/2017 11: 14 AM SENIOR ACCOUNTANT COMPREHENSIVE METABOLIC PANEL WITHOUT GLUCOSE (OUTREACH) Routine Gen Lab 11/20/2017 11:14 AM SENIOR ACCOUNTANT URINALYSIS Routine Gen Lab 11/20/2017 11:14 AM SENIOR ACCOUNTANT CBC WITH AUTO DIFFERENTIAL Routine Gen Lab 11/20/2017 11:14 AM SENIOR ACCOUNTANT HIV-1 RNA, QUANTITATIVE, PCR Routine Gen Lab 11/20/2017 11:14 AM SENIOR ACCOUNTANT RPR Routine Gen Lab 11/20/2017 11:14 AM SENIOR ACCOUNTANT URINALYSIS, MICROSCOPIC ONLY Routine Gen Lab 11/20/2017 11:14 AM SENIOR ACCOUNTANT T-HELPER CELLS (CD4) COUNT Routine Gen Lab 11/20/2017 11:14 AM SENIOR ACCOUNTANT URINE CULTURE Routine Gen Lab 11/20/2017 11:14 AM SENIOR ACCOUNTANT documented in this encounter Results * TB test, T-SPOT (07/05/2018 10:29 AM CDT) [facility] IFN-Gamma Release Assay TB Negative [facility] Comment: Interpretive Data Testing performed by [employer], [address] [place], [place] [address] Current Interpretive Data was last revised 2014 Blood specimen (specimen) 07/05/2018 10:29 AM CDT 07/05/2018 11:56 AM CDT Narrative [facility] - 07/07/2018 1:37 PM CDT Jodi May MD LAB MICROBIOLOGY - GENERA L ORDERABLES Final Result Performing Organization Address [facility] [place] [address] * Urine culture (11/20/2017 11:14 AM SENIOR ACCOUNTANT) Report Final Report: Insignificant growth based on current clinical standards. [facility] Urine 11/20/2017 11:1 4 AM SENIOR ACCOUNTANT 11/20/2017 9:08 PM SENIOR ACCOUNTANT Narrative [facility] - 11/22/2017 7:46 AM SENIOR ACCOUNTANT Jodi May MD LAB MICROBIOLOGY - GENERA L ORDERABLES Final Result Performing Organization Address [facility] [place] [address] * HIV-1 RNA, quantitative, PCR (11/20/2017 11:14 AM SENIOR ACCOUNTANT) HIV-1 RNA Not Detected [facility] Comment: Interpretive Data: The quantifiable range of this assay is 20 copies/mL to 10,000,000 copies/mL (1.30 log copies/mL to 7.00 log copies/mL). ??Testing was performed by the [employer]ELS TaqMan HIV-1 Test version 2.0 ([employer] Testing performed at [facility] Current Interpretive Data was last revised on 2015. Blood specimen (specimen) 11/20/2017 11:14 AM SENIOR ACCOUNTANT 11/20/2017 9:23 PM SENIOR ACCOUNTANT Narrative [facility] - 11/21/2017 2:14 PM SENIOR ACCOUNTANT Jodi May MD LAB MICROBIOLOGY - GENERA L ORDERABLES Final Result Performing Organization Address [facility] [place] [address] * (ABNORMAL) T-helper cells (CD4) count (11/20/2017 11:14 AM SENIOR ACCOUNTANT) CD4 pct 26(L) 31 - 64 % [facility] CD4 Absolute 478 365 - 1,294 cells/mcL [facility] Blood specimen (specimen) 11/20/2017 11:14 AM SENIOR ACCOUNTANT 11/20/2017 12:22 PM SENIOR ACCOUNTANT Narrative [facility] - 11/20/2017 8:27 PM SENIOR ACCOUNTANT Jodi May MD LAB BLOOD ORDERABLES Kareen l Result [facility] Department [place] [address] * (ABNORMAL) Urinalysis, microscopic only (11/20/2017 11:14 AM SENIOR ACCOUNTANT) Pathologist [facility] RBC, ur 4(H) 0 - 3 /HPF [facility] WBC, ur 1 0 - 5 /HPF [facility] Bacteria, ur Negative Trace [facility] Epithelial cells, renal, ur 0 0 - 0 /HPF [facility] Epithelial cells, squamous, ur 8 /LPF [facility] Mucus, ur Small /HPF [facility] Hyaline casts, ur 2(H) 0 - 0 /LPF [facility] Urine 11/20/2017 11:1 4 AM SENIOR ACCOUNTANT 11/20/2017 4:41 PM SENIOR ACCOUNTANT Narrative [facility] - 11/20/2017 5:12 PM SENIOR ACCOUNTANT us Jodi May MD LAB URINE ORDERABLES Kareen l Result [facility] Department [place] [address] * (ABNORMAL) Urinalysis (11/20/2017 11:14 AM SENIOR ACCOUNTANT) Color, ur Yellow Yellow [facility] Clarity, ur Clear Clear [facility] Specific gravity, ur 1.018 1.003 - 1.030 [facility] pH, ur 6.0 5.0 - 8.0 [facility] Albumin, ur Negative Trace [facility] Glucose, ur ql Negative Negative [facility] Ketones, ur Negative Negative [facility] Bilirubin, ur Negative Negative [facility] Blood, ur 1+(A) Negative [facility] Urobilinogen, ur <2.0 <2.0 mg/dL [facility] Nitrites, ur Negative Negative [facility] Leukocyte esterase, ur Negative Negative [facility] Urine 11/20/2017 11:1 4 AM SENIOR ACCOUNTANT 11/20/2017 4:41 PM SENIOR ACCOUNTANT Narrative [facility] - 11/20/2017 4:59 PM SENIOR ACCOUNTANT us Jodi May MD LAB URINE ORDERABLES Kareen l Result Performing Organization Address City/[facility]/ZIP Co de Phone Number [facility] Department [place] [address] * RPR, serum (11/20/2017 11:14 AM SENIOR ACCOUNTANT) RPR Nonreactive Nonreactive [facility] Blood specimen (specimen) 11/20/2017 11:14 AM SENIOR ACCOUNTANT 11/20/2017 12:26 PM SENIOR ACCOUNTANT Narrative [facility] - 11/20/2017 2:10 PM SENIOR ACCOUNTANT Jodi May MD LAB MICROBIOLOGY - GENERA L ORDERABLES Final Result [facility] [place] [address] * Comprehensive metabolic panel, without glucose (Outreach) (11/20/2017 11:14 AM SENIOR ACCOUNTANT) Sodium 140 135 - 145 mmol/L [facility] Potassium, pl 3.6 3.3 - 4.9 mmol/L [facility] Chloride 105 97 - 110 mmol/L [facility] CO2 26 22 - 32 mmol/L [facility] Anion gap 8 2 - 15 mmol/L [facility] BUN 11 8 - 25 mg/dL [facility] Creatinine 0.98 0.80 - 1.30 mg/dL [facility] Calcium 9.5 8.5 - 10.3 mg/dL [facility] Protein, pl 8.0 6.5 - 8.5 g/dL [facility] Albumin 4.5 3.5 - 5.0 g/dL [facility] Bilirubin, total 0.3 0.1 - 1.2 mg/dL [facility] Alk phos 66 40 - 130 Units/L [facility] AST 29 10 - 50 Units/L [facility] ALT 43 7 - 55 Units/L [facility] Blood specimen (specimen) 11/20/2017 11:14 AM SENIOR ACCOUNTANT 11/20/2017 12:18 PM SENIOR ACCOUNTANT Narrative [facility] - 11/20/2017 12:57 PM SENIOR ACCOUNTANT Jodi May MD LAB BLOOD ORDERABLES Kareen l Result [facility] Department [place] [address] * CS GLUCOSE (11/20/2017 11:14 AM SENIOR ACCOUNTANT) [facility] Glucose 93 70 - 199 mg/dL [facility] [...] was last revised 2017. Blood specimen (specimen) 11/20/2017 11:14 AM SENIOR ACCOUNTANT 11/20/2017 12:20 PM SENIOR ACCOUNTANT Narrative [facility] - 11/20/2017 12:52 PM SENIOR ACCOUNTANT Jodi May MD LAB BLOOD ORDERABLES Kareen l Result Performing Organization Address [facility] Co de Phone Number [facility] Department [place] [address] * (ABNORMAL) Differential, auto (11/20/2017 11:14 AM SENIOR ACCOUNTANT) Neutrophil pct 30.4 % [facility] Imm gran pct 0.3 % [facility] Lymphocyte pct 52.3 % [facility] Monocyte pct 10.9 % [facility] Eosinophil pct 5.3 % [facility] Basophil pct 0.8 % [facility] Neutrophil abs 1.21(L) 1.70 - 6.50 K/cumm [facility] Imm gran abs 0.01 0.00 - 0.10 K/cumm [facility] Lymphocyte abs 2.07 0.80 - 3.30 K/cumm [facility] Monocyte abs 0.43 0.20 - 0.80 K/cumm [facility] Eosinophil abs 0.21 0.00 - 0.50 K/cumm [facility] Basophil abs 0.03 0.00 - 0.10 K/cumm [facility] Blood specimen (specimen) 11/20/2017 11:14 AM SENIOR ACCOUNTANT 11/20/2017 12:22 PM SENIOR ACCOUNTANT Narrative [facility] - 11/20/2017 12:30 PM SENIOR ACCOUNTANT Jodi May MD LAB BLOOD ORDERABLES Kareen l Result [facility] Department [place] [address] * (ABNORMAL) CBC with auto differential (11/20/2017 11:14 AM SENIOR ACCOUNTANT) WBC 3.96 3.80 - 9.90 K/cumm [facility] RBC 4.27(L) 4.30 - 5.80 M/cumm [facility] Hgb 12.3(L) 13.0 - 17.5 g/dL [facility] Hct 36.6(L) 38.9 - 50.3 % [facility] MCV 85.7 81.3 - 96.4 fL [facility] MCH 28.8 27.1 - 33.3 pg [facility] MCHC 33.6 32.3 - 35.7 g/dL [facility] RDW CV 13.4 11.1 - 14.9 % [facility] RDW SD 41.8 35.7 - 48.1 fL [facility] Plt 200 150 - 400 K/cumm [facility] MPV 11.2 9.1 - 12.3 fL [facility] NRBC 0.0 0.0 - 0.2 % [facility] NRBC abs 0.00 0.00 - 0.01 K/cumm [facility] Blood specimen (specimen) 11/20/2017 11:14 AM SENIOR ACCOUNTANT 11/20/2017 12:22 PM SENIOR ACCOUNTANT Narrative [facility] - 11/20/2017 12:30 PM SENIOR ACCOUNTANT us Jodi May MD LAB BLOOD ORDERABLES Kareen l Result [facility] Department [place] [address] documented in this encounter Visit Diagnoses Not on filedocumented in this encounter Care Teams Tellers Supervisor Relationship Specialty Start Date End Date Gucci Vilchis MD PCP - General 04/16/17 08/08/22 documented as of this encounter
--- OUTSIDE RECORDS SUMMARY | 2024-11-22 10:55 | XMS_ITS | Encounter Summary ---
Author Organization [facility] Facility Care Team Providers Care Inbound Customer Service Agent Name Role Phone Unavailable Primary Care Provider Unavailabl e Encounter Details Date Type Department Care Team (Latest Contact Info) Description 08/16/2016 9:14 AM CDT - 08/16/2016 11:59 PM CDT Hospital Encounter [facility] Tova Byrd MD [address] [facility] [address] [place] [address] Encounter for general adult medical examination without abnormal findings; Human immunodeficiency virus (HIV) disease ([facility]) Social History Tobacco Use Types Packs/Day Years Used Date Smoking Tobacco: Never Assessed Sex and Gender Information Value Date Recorded Sex Assigned at Not on file Legal Sex Male 7:55 PM [employer] Gender Identity Not on file Sexual Orientation Not on file documented as of this encounter Medications at Time of Discharge darunavir ethanolate (PREZISTA) 800 mg tablet TAKE ONE TABLET (800 MG) BY MOUTH ONCE DAILY WITH FOOD. STORE AT ROOMTEMPERATURE . 08/16/2016 8 kclxazw-fms-beva i-tenof ALAFEN (GENVOYA) [phone] mg tablet TAKE ONE TABLET BY MOUTH ONCE DAILY WITH FOOD. STORE IN ORIGINAL CONTAINER AT ROOM TEMPERATURE. 08/16/2016 8 documented as of this encounter Plan of Treatment Not on file documented as of this encounter Procedures Procedure Name Priority Date/Time Associated Diagnosis Comments URINE (AEROBIC) CULTURE, [facility] Routine 08/16/2016 10:19 AM CDT N. GONORRHOEAE, CHLAMYDIA TRACHOMATIS AMPLIFICATION TEST, CDR Routine 08/16/2016 10:15 AM CDT URINE MICROSCOPY Routine 08/16/2016 10:1 5 AM CDT SERUM TOXOPLASMA AB, IGG Routine 016 10:15 AM CDT SERUM RAPID PLASMA REAGIN (RPR) Routine 08/16/2016 10:15 AM CDT SERUM LIPID PANEL Routine 08/16/2016 10: 15 AM CDT SERUM HEPATITIS B SURFACE AB, QUANT/QUAL Routine 08/16/2016 10:15 AM CDT SERUM HEPATITIS A AB TOTAL Routine 08/16/2016 10:15 AM CDT SERUM GLUCOSE Routine 08/16/2016 10:15 AM CDT PLASMA HUMAN IMMUNODEFICIENCY VIRUS-1 (HIV-1) RNA Routine 08/16/2016 10:15 AM CDT PLASMA COMPREHENSIVE METABOLIC PANEL Routine 08/16/2016 10:15 AM CDT BLOOD LYMPHOCYTE CD4 Routine 08/16/2016 10:15 AM CDT BLOOD INTERFERON GAMMA RELEASE ASSAY Routine 08/16/2016 10:15 AM CDT URINALYSIS Routine 08/16/2016 10:15 AM CDT BLOOD CELL COUNT (CBC) Routine 6 10:15 AM CDT BLOOD CELL MORPHOLOGIC EXAM Routine 08/16/2016 10:15 AM CDT BLOOD ITVRSIG-8-HBECLAFXS DEHYDROGENASE (G6PD) Routine 08/16/2016 5:15 AM CDT REFERENCE LABORATORY MISCELLANEOUS TESTING 08/16/2016 DISCHARGE LABORATORY CUMULATIVE REPORT 08/16/2016 documented in this encounter Results * Urine (aerobic) culture (08/16/2016 10:19 AM CDT) Urine (Unknown) 08/16/2016 1 0:19 AM CDT 08/16/2016 2:20 PM CDT Narrative CDR HISTORICAL RESULTS - 08/18/2016 10:42 AM CDT No growth Historical Provider MD LAB MICROBIOLOGY - GENERA L ORDERABLES Final Result Performing Organization Address [facility] de Phone Number CDR HISTORICAL RESULTS * Neisseria gonorrhoeae, Chlamydia trachomatis amplification test (08/16/2016 10:15 AM CDT) Urine (Unknown) 08/16/2016 1 0:15 AM CDT 08/16/2016 11:34 AM CDT Impressions CDR HISTORICAL RESULTS - 08/17/2016 1:06 PM CDT Testing performed by the Gen-Probe [employer] APTIMA Combo 2 Assay. This nucleic acid amplification test (NAAT) detects ribosomal RNA (rRNA) from Chlamydia trachomatis and Neisseria gonorrhoeae using target capture,and Clinical Research Administrator-Mediated Amplification (TMA). This test is approved by [...] individuals less than 16 years of age. Narrative CDR HISTORICAL RESULTS - 08/17/2016 1:06 PM CDT Negative for: ??Chlamydia trachomatis rRNA Negative for: ??Neisseria gonorrhoeae rRNA us Historical Provider LAB MICROBIOLOGY - GENERA L ORDERABLES Final Result Performing Organization Address City/[facility] Co de Phone Number CDR HISTORICAL RESULTS * Serum Toxoplasma ab, IgG (08/16/2016 10:15 AM CDT) Toxoplasma ab, IgG, qual Negative Negative CDR HISTORICAL RESULTS Comment: Interpretive Data Negative - ??No detectable antibody. Equivocal - Presence of detectable antibody cannot be determined. Positive - ??Detectable level of antibody present. Current interpretive data was last revised on 2001. Serum 08/16/2016 10:1 5 AM CDT Tova Zayas MD LAB BLOOD ORDERABLES Final Result Performing Organization Address [facility] de Phone Number CDR HISTORICAL RESULTS * Serum Hepatitis B surface ab, Quant/Qual (08/16/2016 10:15 AM CDT) Pathologist [facility] HBV surface ab Positive CDR HISTORICAL RESULTS Comment: Interpretive Data A Negative Result indicates HBsAb of less than 10mIU/mL; a Positive Result indicates HBsAb of greater than or equal to 10mIU/mL. If qualitative result is Positive, HBsAb Quantitation will be reported. Assay performance characteristics have not been established as an aid in determining susceptibility to HBV infection prior to or following vaccination in infants, or children. For monitoring serum HBsAb levels during hepatitis B immunoglobulin (HBIG) therapy in transplant recipients, please refer to institutional HBIG protocol for desirable HBsAb levels. Current interpretive data was last revised on 2013. HBV surface ab, quant 384 mIUnits/m l CDR HISTORICAL RESULTS Serum 08/16/2016 10:1 5 AM CDT Tova Zayas MD LAB BLOOD ORDERABLES Final Result Performing Organization Address [facility] Co de Phone Number CDR HISTORICAL RESULTS * (ABNORMAL) Urinalysis (08/16/2016 10:15 AM CDT) Pathologist [facility] Color, ur Yellow Yellow CDR HISTOR ICAL RESULTS Clarity, ur Clear Clear CDR HIST ORICAL RESULTS Specific gravity, ur 1.016 1.003 - 1.030 CDR HISTORICAL RESULTS pH, ur 5.0 5.0 - 8.0 CDR HISTOR ICAL RESULTS Protein, ur Negative Trace CDR HIST ORICAL RESULTS Glucose, ur Negative Negative CDR HIST ORICAL RESULTS Ketones, ur Negative Negative CDR HIST ORICAL RESULTS Bilirubin, ur Negative Negative CDR HI STORICAL RESULTS U Blood 1+(A) Negative CDR HISTOR ICAL RESULTS Urobilinogen, quant, ur <2.0 <2.0 mg/dl CDR HISTORICAL RESULTS Nitrites, ur Negative Negative CDR HIS TORICAL RESULTS Leukocyte esterase, ur Negative Negative CDR HISTORICAL RESULTS Urine 08/16/2016 10:1 5 AM CDT Tova Zayas MD LAB BLOOD ORDERABLES Final Result CDR HISTORICAL RESULTS * Urine microscopy (08/16/2016 10:15 AM CDT) RBC, ur 3 0 - 3 /hpf CDR HISTO RICAL RESULTS WBC, ur 0 0 - 5 /hpf CDR HISTO RICAL RESULTS Bacteria, ur Negative Trace CDR HIS TORICAL RESULTS Epithelial cells, renal, ur 0 0 - 0 /hpf CDR HISTORICAL RESULTS Urine 08/16/2016 10:1 5 AM CDT Tova Zayas MD LAB BLOOD ORDERABLES Final Result Performing Organization Address [facility] Co de Phone Number CDR HISTORICAL RESULTS * Blood lymphocyte CD4 (08/16/2016 10:15 AM CDT) CD4 % 32 31 - 64 % CDR HISTOR ICAL RESULTS CD4 cells 686 365 - 1294 cells/mcl CDR HISTORICAL RESULTS Leukocyte, NOS 08/16/2016 10 :15 AM CDT Tova Zayas MD LAB BLOOD ORDERABLES Final Result Performing Organization Address City/[facility]/ZIP Co de Phone Number CDR HISTORICAL RESULTS * Serum rapid plasma reagin (RPR) (08/16/2016 10:15 AM CDT) RPR Nonreactive CDR HIST ORICAL RESULTS Serum 08/16/2016 10:1 5 AM CDT Tova Zayas MD LAB BLOOD ORDERABLES Final Result CDR HISTORICAL RESULTS * (ABNORMAL) Serum lipid panel (08/16/2016 10:15 AM CDT) Cholesterol 260(H) 30 - 200 mg/dl CDR HISTORICAL RESULTS Comment: Interpretive Data Desirable: ?<200 mg/dL Borderline high: ??200-239 mg/dL High: ? > or = 240 mg/dL Literature Reference: National Cholesterol Education Program (NCEP) Expert Panel on Detection, Evaluation, and Treatment of High Blood Cholesterol in Adults (Adult Treatment Panel III). ??Circulation 2004; 110:227. Current interpretive data was last revised on 2015. Triglycerides 189(H) 0 - 150 mg/dl CDR HISTORICAL RESULTS Comment: Interpretive Data Desirable: ? < 150 mg/dL Borderline High: ? 150 - 199 mg/dL High: ?200 - 499 mg/dL Very High: ? > or = 499 mg/dL Literature Reference: See Cholesterol Current interpretive data was last revised on 2015. HDL 44 >=40 mg/dl CDR HISTORICAL RESULTS Comment: Interpretive Data Less than 40 mg/dL - low; A major risk factor for heart disease. Greater than or equal to 60 mg/dL - High; ??considered protective of heart disease. Literature Reference: See Cholesterol Current interpretive data was last revised on 2015. LDL 178(H) 10 - 129 mg/dl CDR HISTORICAL RESULTS Comment: Interpretive Data Optimal: ? < 100 mg/dL Near Optimal: ?100 - 129 mg/dL Borderline High: ?? 130 - 159 mg/dL High: ?160 - 189 mg/dL Very high: ? > or = 190 mg/dL Literature Reference: See Cholesterol Current interpretive data was last revised on 2015. Non-HDL cholesterol, calculated 216 mg/dl CDR HISTORICAL RESULTS Comment: Interpretive Data When triglycerides are >200 mg/dL, non-HDL C is a secondary target of therapy, with a goal 30 mg/dL higher than the identified LDL-C goal. Reference: ??See Cholesterol Reference. Current interpretive data was last revised 2015. Serum 08/16/2016 10:1 5 AM CDT Tova Zayas MD LAB BLOOD ORDERABLES Final Result CDR HISTORICAL RESULTS * Plasma comprehensive metabolic panel (08/16/2016 10:15 AM CDT) Sodium 141 135 - 145 mmol/L CDR HISTORICAL RESULTS K, pl 3.8 3.3 - 4.9 mmol/L CDR HISTORICAL RESULTS Chloride 106 97 - 110 mmol/L CDR HISTORICAL RESULTS CO2 27 22 - 32 mmol/L CDR HISTORICAL RESULTS A. gap 8 2 - 15 mmol/L CDR HISTORICAL RESULTS BUN 10 8 - 25 mg/dl CDR HISTORICAL RESULTS Creatinine 1.04 0.80 - 1.30 mg/dl CDR HISTORICAL RESULTS Calcium 9.4 8.5 - 10.3 mg/dl CDR HISTORICAL RESULTS Protein, pl 8.1 6.5 - 8.5 g/dl CDR HISTORICAL RESULTS Alb 4.8 3.5 - 5.0 g/dl CDR HISTORICAL RESULTS Bilirubin 0.2 0.1 - 1.2 mg/dl CDR HISTORICAL RESULTS Alk phos 56 40 - 130 Units/L CDR HISTORICAL RESULTS AST 27 10 - 50 Units/L CDR HISTORICAL RESULTS ALT 33 7 - 55 Units/L CDR HISTORICAL RESULTS Plasma 08/16/2016 10:1 5 AM CDT Tova Zayas MD LAB BLOOD ORDERABLES Final Result CDR HISTORICAL RESULTS * Plasma Human Immunodeficiency virus-1 (HIV-1) RNA (08/16/2016 10:15 AM CDT) Pathologist [facility] HIV-1 RNA Not Detected CDR HISTORICAL RESULTS Comment: Interpretive Data: The quantifiable range of this assay is 20 copies/mL to 10,000,000 copies/mL (1.30 log copies/mL to 7.00 log copies/mL). ??Testing was performed by the [employer] Ampli[employer] TaqMan HIV-1 Test version 2.0 ([employer] Testing performed at [facility] Current Interpretive Data was last revised on 2015. Plasma 08/16/2016 10:1 5 AM CDT Tova Zayas MD LAB BLOOD ORDERABLES Final Result Performing Organization Address [facility] de Phone Number CDR HISTORICAL RESULTS * (ABNORMAL) Serum Hepatitis A ab total (08/16/2016 10:15 AM CDT) HAV ab, total Positive(A ) NEG CDR HISTORICAL RESULTS Serum 08/16/2016 10:1 5 AM CDT Tova Zayas MD LAB BLOOD ORDERABLES Final Result Performing Organization Address [facility] Phone Number CDR HISTORICAL RESULTS * Blood interferon gamma release assay (08/16/2016 10:15 AM CDT) Interferon gamma release See Comment CDR HISTORICAL RESULTS Comment: {See scanned report.} Interpretive Data Testing performed by [facility], [address] [place] [address] Current Interpretive Data was last revised 2014 Blood specimen (specimen) 08/16/2016 10:15 AM CDT Tova Zayas MD LAB BLOOD ORDERABLES Final Result Performing Organization Address [facility] de Phone Number CDR HISTORICAL RESULTS * Serum glucose (08/16/2016 10:15 AM CDT) Glucose 98 70 - 199 mg/dl CDR HISTORICAL RESULTS Serum 08/16/2016 10:1 5 AM CDT us Tova Zayas MD LAB BLOOD ORDERABLES Final Result Performing Organization Address [facility] de Phone Number CDR HISTORICAL RESULTS * Blood cell count (CBC) (08/16/2016 10:15 AM CDT) WBC 4.3 3.8 - 9.9 K/cumm CDR HISTORICAL RESULTS RBC 4.79 4.30 - 5.80 M/cumm CDR HISTORICAL RESULTS Hgb 13.1 13.0 - 17.5 g/dl CDR HISTORICAL RESULTS Hct 40.2 38.9 - 50.3 % CDR HISTORICAL RESULTS MCV 83.9 81.3 - 96.4 fl CDR HISTORICAL RESULTS MCH 27.3 27.1 - 33.3 pg CDR HISTORICAL RESULTS MCHC 32.6 32.3 - 35.7 g/dl CDR HISTORICAL RESULTS Rdw 13.5 11.1 - 14.9 % CDR HISTORICAL RESULTS RDW 41.8 35.7 - 48.1 fl CDR HISTORICAL RESULTS Platelets 232 150 - 400 K/cumm CDR HISTORICAL RESULTS MPV 12.0 9.1 - 12.3 fl CDR HISTORICAL RESULTS NRBC 0.0 0.0 - 0.2 % CDR HIST ORICAL RESULTS NRBC, abs 0.00 0.00 - 0.01 K/cumm CDR HISTORICAL RESULTS Blood specimen (specimen) 08/16/2016 10:15 AM CDT Tova Zayas MD LAB BLOOD ORDERABLES Final Result CDR HISTORICAL RESULTS * (ABNORMAL) Blood cell morphologic exam (08/16/2016 10:15 AM CDT) Neutrophils 29.6 % CDR HIST ORICAL RESULTS Immature granulocytes 0.2 % CDR HISTORICAL RESULTS Lymphocytes 55.6 % CDR HIST ORICAL RESULTS Monos 9.0 % CDR HISTOR ICAL RESULTS Eosinophils 4.9 % CDR HIST ORICAL RESULTS Basophils 0.7 % CDR HISTOR ICAL RESULTS Neutrophils, abs 1.3(L) 1.7 - 6.5 K/cumm CDR HISTORICAL RESULTS Immature granulocyte, abs 0.0 0.0 - 0.1 K/cumm CDR HISTORICAL RESULTS Lymphocytes, abs 2.4 0.8 - 3.3 K/cumm CDR HISTORICAL RESULTS Monocytes, absolute 0.4 0.2 - 0.8 K/cumm CDR HISTORICAL RESULTS Eosinophils, abs 0.2 0.0 - 0.5 K/cumm CDR HISTORICAL RESULTS Basophils, abs 0.0 0.0 - 0.1 K/cumm CDR HISTORICAL RESULTS Blood specimen (specimen) 08/16/2016 10:15 AM CDT Tova Zayas MD LAB BLOOD ORDERABLES Final Result CDR HISTORICAL RESULTS * Blood tmmuowq-1-nveoxflwc dehydrogenase (G6PD) (08/16/2016 5:15 AM CDT) G6PD Normal CDR HISTOR ICAL RESULTS Blood specimen (specimen) 08/16/2016 5:15 AM CDT Narrative CDR HISTORICAL RESULTS - 08/17/2016 5:42 AM CDT Comment Deleted Tova Zayas MD LAB BLOOD ORDERABLES Final Result Performing Organization Address [place]/[facility] Co de Phone Number CDR HISTORICAL RESULTS * REFERENCE LABORATORY MISCELLANEOUS TESTING (08/16/2016) Narrative 08/16/2016 Ordered by an unspecified provider. [facility] Provider LAB BLOOD ORDERABLES Kareen l Result * DISCHARGE LABORATORY CUMULATIVE REPORT (08/16/2016) Narrative 08/16/2016 Ordered by an unspecified provider. [facility] Provider LAB BLOOD ORDERABLES Kareen l Result documented in this encounter Visit Diagnoses Diagnosis Encounter for general adult medical examination without abnormal findings Human immunodeficiency virus (HIV) disease (CMS/HCC) (HCC) Human immunodeficiency virus [HIV] disease documented in this encounter
--- OUTSIDE RECORDS SUMMARY | 2024-11-22 10:55 | XMS_ITS | Encounter Summary ---
Author Organization [facility] Facility Care Team Providers Care Map Mounter Name Role Phone Unavailable Primary Care Provider Unavailabl e Encounter Details Date Type Department Care Team (Latest Contact Info) Description 12/04/2016 1:02 PM SENIOR MEDIA PLANNER - 12/04/2016 11:59 PM SENIOR MEDIA PLANNER Hospital Encounter [facility] Eugenio Clifford MD [address] [address] Encounter for general adult medical examination without abnormal findings; Human immunodeficiency virus (HIV) disease ([facility]) Social History Tobacco Use Types Packs/Day Years Used Date Smoking Tobacco: Never Assessed Sex and Gender Information Value Date Recorded Sex Assigned at Not on file Legal Sex Male 7:55 PM SENIOR MEDIA PLANNER Gender Identity Not on file Sexual Orientation Not on file documented as of this encounter Medications at Time of Discharge darunavir ethanolate (PREZISTA) 800 mg tablet TAKE ONE TABLET (800 MG) BY MOUTH ONCE DAILY WITH FOOD. STORE AT ROOMTEMPERATURE . 08/16/2016 8 [id number] i-tenof ALAFEN (GENVOYA) [phone] mg tablet TAKE ONE TABLET BY MOUTH ONCE DAILY WITH FOOD. STORE IN ORIGINAL CONTAINER AT ROOM TEMPERATURE. 08/16/2016 8 documented as of this encounter Plan of Treatment Not on file documented as of this encounter Procedures Procedure Name Priority Date/Time Associated Diagnosis Comments BLOOD LYMPHOCYTE CD4 Routine 12/04/2016 5:16 PM SENIOR MEDIA PLANNER N. GONORRHOEAE, CHLAMYDIA TRACHOMATIS AMPLIFICATION TEST, CDR Routine 12/04/2016 1:09 PM SENIOR MEDIA PLANNER SERUM RAPID PLASMA REAGIN (RPR) Routine 12/04/2016 1:09 PM SENIOR MEDIA PLANNER SERUM GLUCOSE Routine 12/04/2016 1:09 PM SENIOR MEDIA PLANNER PLASMA HUMAN IMMUNODEFICIENCY VIRUS-1 (HIV-1) RNA Routine 12/04/2016 1:09 PM SENIOR MEDIA PLANNER PLASMA COMPREHENSIVE METABOLIC PANEL Routine 12/04/2016 1:09 PM SENIOR MEDIA PLANNER BLOOD HEMOGLOBIN A1C Routine 12/04/2016 1:09 PM SENIOR MEDIA PLANNER URINALYSIS Routine 12/04/2016 1:09 PM SENIOR MEDIA PLANNER BLOOD CELL COUNT (CBC) Routine 7 1:09 PM SENIOR MEDIA PLANNER BLOOD CELL MORPHOLOGIC EXAM Routine 12/04/2016 1:09 PM SENIOR MEDIA PLANNER SERUM HEPATITIS C AB Routine 12/04/2016 7:09 AM SENIOR MEDIA PLANNER DISCHARGE LABORATORY CUMULATIVE REPORT 12/04/2016 documented in this encounter Results * (ABNORMAL) Blood lymphocyte CD4 (12/04/2016 5:16 PM SENIOR MEDIA PLANNER) CD4 % 29(L) 31 - 64 % CDR HISTOR ICAL RESULTS CD4 cells 590 365 - 1294 cells/mcl CDR HISTORICAL RESULTS Leukocyte, NOS 12/04/2016 5: 16 PM SENIOR MEDIA PLANNER us Eugenio Madera MD LAB BLOOD ORDERABLES F inal Result CDR HISTORICAL RESULTS * Neisseria gonorrhoeae, Chlamydia trachomatis amplification test (12/04/2016 1:09 PM SENIOR MEDIA PLANNER) Urine (Unknown) 12/04/2016 1 :09 PM SENIOR MEDIA PLANNER 12/04/2016 4:52 PM SENIOR MEDIA PLANNER Impressions CDR HISTORICAL RESULTS - 12/05/2016 3:00 PM SENIOR MEDIA PLANNER Testing performed by the Gen-Probe [employer] APTIMA Combo 2 Assay. This nucleic acid amplification test (NAAT) detects ribosomal RNA (rRNA) from Chlamydia trachomatis and Neisseria gonorrhoeae using target capture,and Syrup Mixer-Mediated Amplification (TMA). This test is approved by the [place] Food and Drug Administration for endocervical, vaginal, and male urethral swab specimens, in addition to male and female urine specimens. The performance characteristics for these specimen types have been verified by the [facility].The performance characteristics of this assay for pharyngeal and rectal specimens collected from cervical swab collection devices have been validated and verified by the [facility]. Verification studies support a lack [...] of age. Narrative CDR HISTORICAL RESULTS - 12/05/2016 3:00 PM SENIOR MEDIA PLANNER Negative for: ??Chlamydia trachomatis rRNA Negative for: ??Neisseria gonorrhoeae rRNA us Historical Provider LAB MICROBIOLOGY - GENERA L ORDERABLES Final Result CDR HISTORICAL RESULTS * (ABNORMAL) Urinalysis (12/04/2016 1:09 PM SENIOR MEDIA PLANNER) Color, ur Yellow Yellow CDR HISTOR ICAL RESULTS Clarity, ur Turbid(A) Clear CDR HIST ORICAL RESULTS Specific gravity, ur 1.027 1.003 - 1.030 CDR HISTORICAL RESULTS pH, ur 5.0 5.0 - 8.0 CDR HISTOR ICAL RESULTS Protein, ur Negative Trace CDR HIST ORICAL RESULTS Glucose, ur Negative Negative CDR HIST ORICAL RESULTS Ketones, ur Negative Negative CDR HIST ORICAL RESULTS Bilirubin, ur Negative Negative CDR HI STORICAL RESULTS U Blood Negative Negative CDR HISTOR ICAL RESULTS Urobilinogen, quant, ur <2.0 <2.0 mg/dl CDR HISTORICAL RESULTS Nitrites, ur Negative Negative CDR HIS TORICAL RESULTS Leukocyte esterase, ur Negative Negative CDR HISTORICAL RESULTS Urine 12/04/2016 1:09 PM SENIOR MEDIA PLANNER Eugenio Madera MD LAB BLOOD ORDERABLES F inal Result CDR HISTORICAL RESULTS * Serum rapid plasma reagin (RPR) (12/04/2016 1:09 PM SENIOR MEDIA PLANNER) [facility] RPR Nonreactive CDR HIST ORICAL RESULTS Serum 12/04/2016 1:09 PM SENIOR MEDIA PLANNER Eugenio Madera MD LAB BLOOD ORDERABLES F inal Result Performing Organization Address [facility] Co de Phone Number CDR HISTORICAL RESULTS * (ABNORMAL) Plasma comprehensive metabolic panel (12/04/2016 1:09 PM SENIOR MEDIA PLANNER) [facility] Sodium 140 135 - 145 mmol/L CDR HISTORICAL RESULTS K, pl 3.9 3.3 - 4.9 mmol/L CDR HISTORICAL RESULTS Chloride 102 97 - 110 mmol/L CDR HISTORICAL RESULTS CO2 24 22 - 32 mmol/L CDR HISTORICAL RESULTS A. gap 14 2 - 15 mmol/L CDR HISTORICAL RESULTS BUN 10 8 - 25 mg/dl CDR HISTORICAL RESULTS Creatinine 0.91 0.80 - 1.30 mg/dl CDR HISTORICAL RESULTS Calcium 9.4 8.5 - 10.3 mg/dl CDR HISTORICAL RESULTS Protein, pl 7.7 6.5 - 8.5 g/dl CDR HISTORICAL RESULTS Alb 4.4 3.5 - 5.0 g/dl CDR HISTORICAL RESULTS Bilirubin 0.2 0.1 - 1.2 mg/dl CDR HISTORICAL RESULTS Alk phos 97 40 - 130 Units/L CDR HISTORICAL RESULTS AST 10 10 - 50 Units/L CDR HISTORICAL RESULTS ALT 62(H) 7 - 55 Units/L CDR HISTORICAL RESULTS Plasma 12/04/2016 1:09 PM SENIOR MEDIA PLANNER Eugenio Madera MD LAB BLOOD ORDERABLES F inal Result CDR HISTORICAL RESULTS * Plasma Human Immunodeficiency virus-1 (HIV-1) RNA (12/04/2016 1:09 PM SENIOR MEDIA PLANNER) [facility] HIV-1 RNA Detected CDR HISTOR ICAL RESULTS Comment: Interpretive Data: The quantifiable range of this assay is 20 copies/mL to 10,000,000 copies/mL (1.30 log copies/mL to 7.00 log copies/mL). ??Testing was performed by the [employer] AmpliPrep/NIELS TaqMan HIV-1 Test version 2.0 ([employer] Testing performed at [facility] Current Interpretive Data was last revised on 2015. HIV-1 RNA 59 copies/ml CDR HISTOR ICAL RESULTS HIV-1 RNA 1.77 log copies/ml CDR HISTORICAL RESULTS Plasma 12/04/2016 1:09 PM SENIOR MEDIA PLANNER us Eugenio Madera MD LAB BLOOD ORDERABLES F inal Result Performing Organization Address City/[facility]/ZIP Co de Phone Number CDR HISTORICAL RESULTS * Serum glucose (12/04/2016 1:09 PM SENIOR MEDIA PLANNER) Glucose 93 70 - 199 mg/dl CDR HISTORICAL RESULTS Serum 12/04/2016 1:09 PM SENIOR MEDIA PLANNER us Eugenio Madera MD LAB BLOOD ORDERABLES F inal Result CDR HISTORICAL RESULTS * (ABNORMAL) Blood cell count (CBC) (12/04/2016 1:09 PM SENIOR MEDIA PLANNER) WBC 4.1 3.8 - 9.9 K/cumm CDR HISTORICAL RESULTS RBC 4.61 4.30 - 5.80 M/cumm CDR HISTORICAL RESULTS Hgb 12.8(L) 13.0 - 17.5 g/dl CDR HISTORICAL RESULTS Hct 39.7 38.9 - 50.3 % CDR HISTORICAL RESULTS MCV 86.1 81.3 - 96.4 fl CDR HISTORICAL RESULTS MCH 27.8 27.1 - 33.3 pg CDR HISTORICAL RESULTS MCHC 32.2(L) 32.3 - 35.7 g/dl CDR HISTORICAL RESULTS Rdw 14.6 11.1 - 14.9 % CDR HISTORICAL RESULTS RDW 45.1 35.7 - 48.1 fl CDR HISTORICAL RESULTS Platelets 241 150 - 400 K/cumm CDR HISTORICAL RESULTS MPV 10.6 9.1 - 12.3 fl CDR HISTORICAL RESULTS NRBC 0.0 0.0 - 0.2 % CDR HIST ORICAL RESULTS NRBC, abs 0.00 0.00 - 0.01 K/cumm CDR HISTORICAL RESULTS Blood specimen (specimen) 12/04/2016 1:09 PM SENIOR MEDIA PLANNER Eugenio Madera MD LAB BLOOD ORDERABLES F inal Result CDR HISTORICAL RESULTS * (ABNORMAL) Blood cell morphologic exam (12/04/2016 1:09 PM SENIOR MEDIA PLANNER) Neutrophils 34.8 % CDR HIST ORICAL RESULTS Immature granulocytes 0.2 % CDR HISTORICAL RESULTS Lymphocytes 51.0 % CDR HIST ORICAL RESULTS Monos 9.4 % CDR HISTOR ICAL RESULTS Eosinophils 3.9 % CDR HIST ORICAL RESULTS Basophils 0.7 % CDR HISTOR ICAL RESULTS Neutrophils, abs 1.4(L) 1.7 - 6.5 K/cumm CDR HISTORICAL RESULTS Immature granulocyte, abs 0.0 0.0 - 0.1 K/cumm CDR HISTORICAL RESULTS Lymphocytes, abs 2.1 0.8 - 3.3 K/cumm CDR HISTORICAL RESULTS Monocytes, absolute 0.4 0.2 - 0.8 K/cumm CDR HISTORICAL RESULTS Eosinophils, abs 0.2 0.0 - 0.5 K/cumm CDR HISTORICAL RESULTS Basophils, abs 0.0 0.0 - 0.1 K/cumm CDR HISTORICAL RESULTS Blood specimen (specimen) 12/04/2016 1:09 PM SENIOR MEDIA PLANNER Eugenio Maedra MD LAB BLOOD ORDERABLES F inal Result CDR HISTORICAL RESULTS * Blood hemoglobin A1C (12/04/2016 1:09 PM SENIOR MEDIA PLANNER) Hgb A1C 5.7 4.0 - 6.0 % CDR HISTORICAL RESULTS Estimated average glucose 117 mg/dl CDR HISTORIC AL RESULTS Comment: The ADA recommends reporting an estimated Average Glucose (eAG) with all Hemoglobin A1c results using the equation derived from a study of 507 normal and diabetic adults. ??Minority populations were underrepresented and children were not included. ??(Diabetes Care 31:9641-5716, 2008). ??The eAG is not equivalent to a fasting glucose. Blood specimen (specimen) 12/04/2016 1:09 PM SENIOR MEDIA PLANNER Eugenio Madera MD LAB BLOOD ORDERABLES F inal Result Performing Organization Address City/[facility]/ZIP Co de Phone Number CDR HISTORICAL RESULTS * Serum Hepatitis C ab (12/04/2016 7:09 AM SENIOR MEDIA PLANNER) HCV ab Negative NEG CDR HISTOR ICAL RESULTS Serum 12/04/2016 7:09 AM SENIOR MEDIA PLANNER Narrative CDR HISTORICAL RESULTS - 12/05/2016 6:23 AM SENIOR MEDIA PLANNER Interpretive Data Positive results should be confirmed by a molecular method. If positive, a second separately collected sample should be submitted for Hepatitis C Virus (HCV) RNA Detection and Quantitation by Real-Time Reverse Syrup Mixer-PCR (RT-PCR). Current interpretive data was last revised on 2016. Eugenio Madera MD LAB BLOOD ORDERABLES F inal Result Performing Organization Address City/[facility] Co de Phone Number CDR HISTORICAL RESULTS * DISCHARGE LABORATORY CUMULATIVE REPORT (12/04/2016) Narrative 12/04/2016 Ordered by an unspecified provider. Historical Provider LAB BLOOD ORDERABLES Kareen l Result documented in this encounter Visit Diagnoses Diagnosis Encounter for general adult medical examination without abnormal findings Human immunodeficiency virus (HIV) disease (CMS/HCC) (HCC) Human immunodeficiency virus [HIV] disease documented in this encounter
--- OUTSIDE RECORDS SUMMARY | 2024-11-22 10:55 | XMS_ITS | Encounter Summary ---
Author Organization [facility] Address [address] [place] [address] Phone Care Team Providers Care Bistro Server Name Role Phone Gucci Vilchis MD Primary Care Provider [phone] Encounter Details Date Type Department Care Team (Late st Contact Info) Description 12/03/2018 Telephone [facility] Scheduling [address] [place] [address] Carli Tee CNA Social History Tobacco Use Types Packs/Day Years Used Date Smoking Tobacco: Never Smokeless Tobacco: Never Sex and Gender Information Value Date Recorded Sex Assigned at Not on file Legal Sex Male 7:55 PM CATH LAB RADIOLOGY TECHNICIAN Gender Identity Not on file Sexual Orientation Not on file documented as of this encounter Miscellaneous Notes * Telephone Encounter - Carli Tee CNA - 12/04/2018 3:38 PM CST PATIENT WAS OKAY WITH APPT RESCHEDULED TO 12/31 LAB RADIOLOGY TECHNICIAN * Telephone Encounter - Tequila Luu RN - 12/03/2018 3:16 PM CST Adding Carli to message. LAB RADIOLOGY TECHNICIAN * Telephone Encounter - Ashley Sanderson RN - 12/03/2018 2:01 PM CATH LAB RADIOLOGY TECHNICIAN Carli - how about we try Antoinette wilsonolgoarlin return on a Sunday? LAB RADIOLOGY TECHNICIAN * Telephone Encounter - Anne Barros NP - 12/03/2018 1:50 PM CATH LAB RADIOLOGY TECHNICIAN He has been seeing Antoinette since 2017 it looks like LAB RADIOLOGY TECHNICIAN * Telephone Encounter - Tequila Luu RN - 12/03/2018 1:36 PM CST Pt asking for earlier appt than 12/13. He has been on multiple provider schedules on . Not sure who his primary Virology provider is. lbw LAB RADIOLOGY TECHNICIAN documented in this encounter Plan of Treatment Not on file documented as of this encounter Visit Diagnoses Not on filedocumented in this encounter Care Teams Bistro Server Relationship Specialty Start Date End Date Gucci Vilchis MD PCP - General 04/16/17 08/08/22 [facility] Rn Orthopaedic 10/30/18 12/08/21 documented as of this encounter
--- OUTSIDE RECORDS SUMMARY | 2024-11-22 10:55 | XMS_ITS | Encounter Summary ---
Author Organization [facility] Facility Care Team Providers Care Used Building Materials Yard Worker Name Role Phone Unavailable Primary Care Provider Unavailabl e Encounter Details Date Type Department Care Team (Late st Contact Info) Description 07/15/2015 - 07/15/2015 11:59 PM CDT Hospital Encounter [facility] Tova Byrd MD [address] [facility] [address] [place] [address] Encounter for long-term (current) use of other medications Social History Tobacco Use Types Packs/Day Years Used Date Smoking Tobacco: Never Assessed Sex and Gender Information Value Date Recorded Sex Assigned at Not on file Legal Sex Male 7:55 PM EMAIL MARKETING COORDINATOR Gender Identity Not on file Sexual Orientation Not on file documented as of this encounter Plan of Treatment Not on file documented as of this encounter Procedures Procedure Name Priority Date/Time Associated Diagnosis Comments SERUM LIPID PANEL Routine 07/15/2015 6:0 8 AM CDT SERUM GLUCOSE, FASTING Routine 5 6:08 AM CDT PLASMA COMPREHENSIVE METABOLIC PANEL Routine 07/15/2015 6:08 AM CDT BLOOD LYMPHOCYTE CD4 Routine 07/15/2015 6:08 AM CDT BLOOD HUMAN IMMUNODEFICIENCY VIRUS (HIV) RNA VIRAL LOAD Routine 07/15/2015 6:08 AM CDT DISCHARGE LABORATORY CUMULATIVE REPORT 07/15/2015 documented in this encounter Results * (ABNORMAL) Blood lymphocyte CD4 (07/15/2015 6:08 AM CDT) [facility] CD4 % 29(L) 31 - 64 % HISTORICAL RESULTS CD4 cells 557 365 - 1294 cells/mcl HISTORICAL RESULTS Leukocyte, NOS 07/15/2015 6: 08 AM CDT Narrative HISTORICAL RESULTS - 07/16/2015 2:43 AM CDT fasting Client / Account bill? No Client Account Number and Description: Tova Zayas MD LAB BLOOD ORDERABLES Final Result Performing Organization Address [facility] de Phone Number HISTORICAL RESULTS * Blood human immunodeficiency virus (HIV) RNA viral load (07/15/2015 6:08 AM CDT) [facility] HIV, RNA viral load Undetected Undetected copies/ml HISTORICAL RESULTS Comment: Result in log copies/mL is Undetected. ADDITIONAL INFORMATION The quantification range of this assay is 20 to 10,000,000 copies/mL (1.30 log copies/mL to 7.00 log copies/mL). Testing was performed by the [employer] AmpliPrep/NIELS TaqMan HIV-1 Test version 2.0 ([employer] Test Performed by: [place] [address] Ethnographer: Bo Hair II, M.D., Ph.D. Blood specimen (specimen) 07/15/2015 6:08 AM CDT Narrative HISTORICAL RESULTS - 07/16/2015 1:52 PM CDT fasting Client / Account bill? No Client Account Number and Description: Tova Zayas MD LAB BLOOD ORDERABLES Final Result Performing Organization Address [facility] de Phone Number HISTORICAL RESULTS * (ABNORMAL) Serum lipid panel (07/15/2015 6:08 AM CDT) [facility] Cholesterol 212(H) 0 - 200 mg/dl HISTORICAL RESULTS Comment: Interpretive Data Desirable: ?<200 mg/dL Borderline high: ??200-239 mg/dL High: ? >240 mg/dL Literature Reference: National Cholesterol Education Program (NCEP) Expert Panel on Detection, Evaluation, and Treatment of High Blood Cholesterol in Adults (Adult Treatment Panel III). ??Circulation 2004; 110:227. Current interpretive data was last revised on 2005. Triglycerides 107 0 - 150 mg/dl HISTORICAL RESULTS Comment: Interpretive Data Desirable: ? < 150 mg/dL Borderline High: ? 150 - 199 mg/dL High: ?> 200 mg/dL Literature Reference: See Cholesterol Current interpretive data was last revised on 07. HDL 42 40 - 199 mg/dl HISTORICAL RESULTS Comment: Interpretive Data Less than 40 mg/dL - low; A major risk factor for heart disease. Greater than or equal to 60 mg/dL - High; ??considered protective of heart disease. Literature Reference: See Cholesterol Current interpretive data was last revised on 2008. LDL 149(H) 0 - 129 mg/dl HISTORICAL RESULTS Comment: Interpretive Data Optimal: ? < 100 mg/dL Near Optimal: ?100 - 129 mg/dL Borderline High: ?? 130 - 159 mg/dL High: ?> 160 mg/dL Literature Reference: See Cholesterol Current interpretive data was last revised on 07. Non-HDL cholesterol, calculated 170 mg/dl HISTORICAL RESULTS Comment: Interpretive Data When triglycerides are >200 mg/dL, non-HDL C is a secondary target of therapy, with a goal 30 mg/dL higher than the identified LDL-C goal. Reference: ??See Cholesterol Reference. Current interpretive data was last revised 2012. Serum 07/15/2015 6:08 AM CDT Narrative HISTORICAL RESULTS - 07/15/2015 8:49 AM CDT fasting Client / Account bill? No Client Account Number and Description: Tova Yamil Zayas MD LAB BLOOD ORDERABLES Final Result HISTORICAL RESULTS * (ABNORMAL) Plasma comprehensive metabolic panel (07/15/2015 6:08 AM CDT) Sodium 140 135 - 145 mmol/L HISTORICAL RESULTS K, pl 3.7 3.3 - 4.9 mmol/L HISTORICAL RESULTS Chloride 104 97 - 110 mmol/L HISTORICAL RESULTS CO2 24 22 - 32 mmol/L HISTORICAL RESULTS A. gap 12 0 - 16 mmol/L HISTORICAL RESULTS BUN 10 8 - 25 mg/dl HISTORICAL RESULTS Creatinine 0.85 0.70 - 1.30 mg/dl HISTORICAL RESULTS Calcium 9.1 8.6 - 10.3 mg/dl HISTORICAL RESULTS Protein, pl 7.8 6.5 - 8.5 g/dl HISTORICAL RESULTS Alb 4.5 3.6 - 5.0 g/dl HISTORICAL RESULTS Bilirubin 0.2(L) 0.3 - 1.1 mg/dl HISTORICAL RESULTS Alk phos 55 38 - 126 Units/L HISTORICAL RESULTS AST 19 11 - 47 Units/L HISTORICAL RESULTS ALT 22 7 - 53 Units/L HISTORICAL RESULTS Plasma 07/15/2015 6:08 AM CDT Narrative HISTORICAL RESULTS - 07/15/2015 8:49 AM CDT fasting Client / Account bill? No Client Account Number and Description: us Tova Zayas MD LAB BLOOD ORDERABLES Final Result Performing Organization Address [facility]/ZIP Co de Phone Number HISTORICAL RESULTS * Serum glucose, fasting (07/15/2015 6:08 AM CDT) Glucose, fasting 96 70 - 99 mg/dl HISTORICAL RESULTS Serum 07/15/2015 6:08 AM CDT Narrative HISTORICAL RESULTS - 07/15/2015 8:38 AM CDT fasting Client / Account bill? No Client Account Number and Description: us Tova Zayas MD LAB BLOOD ORDERABLES Final Result HISTORICAL RESULTS * DISCHARGE LABORATORY CUMULATIVE REPORT (07/15/2015) Narrative 07/15/2015 Ordered by an unspecified provider. us Historical Provider LAB BLOOD ORDERABLES Kareen l Result documented in this encounter Visit Diagnoses Diagnosis Encounter for long-term (current) use of other medications documented in this encounter
--- OUTSIDE RECORDS SUMMARY | 2024-11-22 10:55 | XMS_ITS | Encounter Summary ---
Author Organization [facility] Facility Care Team Providers Care Prop Drawer Name Role Phone Unavailable Primary Care Provider Unavailabl e Encounter Details Date Type Department Care Team (Latest Contact Info) Description 03/15/2016 - 03/15/2016 11:59 PM CDT Hospital Encounter [facility] Tova Byrd MD [address] [facility] [address] [place] [address] Encounter for general adult medical examination without abnormal findings; Human immunodeficiency virus (HIV) disease ([facility]) Social History Tobacco Use Types Packs/Day Years Used Date Smoking Tobacco: Never Assessed Sex and Gender Information Value Date Recorded Sex Assigned at Not on file 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 Gender Identity Not on file Sexual Orientation Not on file documented as of this encounter Plan of Treatment Not on file documented as of this encounter Procedures Procedure Name Priority Date/Time Associated Diagnosis Comments SERUM GLUCOSE Routine 03/15/2016 11:20 AM CDT PLASMA HUMAN IMMUNODEFICIENCY VIRUS-1 (HIV-1) RNA Routine 03/15/2016 11:20 AM CDT PLASMA COMPREHENSIVE METABOLIC PANEL Routine 03/15/2016 11:20 AM CDT BLOOD LYMPHOCYTE CD4 Routine 03/15/2016 11:20 AM CDT BLOOD CELL COUNT (CBC) Routine 6 11:20 AM CDT BLOOD CELL MORPHOLOGIC EXAM Routine 03/15/2016 11:20 AM CDT DISCHARGE LABORATORY CUMULATIVE REPORT 03/15/2016 documented in this encounter Results * (ABNORMAL) Blood lymphocyte CD4 (03/15/2016 11:20 AM CDT) [facility] CD4 % 28(L) 31 - 64 % HISTORICAL RESULTS CD4 cells 607 365 - 1294 cells/mcl HISTORICAL RESULTS Leukocyte, NOS 03/15/2016 11 :20 AM CDT Tova Zayas MD LAB BLOOD ORDERABLES Final Result HISTORICAL RESULTS * Plasma comprehensive metabolic panel (03/15/2016 11:20 AM CDT) [facility] Sodium 140 135 - 145 mmol/L HISTORICAL RESULTS K, pl 3.7 3.3 - 4.9 mmol/L HISTORICAL RESULTS Chloride 105 97 - 110 mmol/L HISTORICAL RESULTS CO2 29 22 - 32 mmol/L HISTORICAL RESULTS A. gap 6 2 - 15 mmol/L HISTORICAL RESULTS BUN 10 8 - 25 mg/dl HISTORICAL RESULTS Creatinine 1.00 0.80 - 1.30 mg/dl HISTORICAL RESULTS Calcium 9.2 8.5 - 10.3 mg/dl HISTORICAL RESULTS Protein, pl 7.3 6.5 - 8.5 g/dl HISTORICAL RESULTS Alb 4.4 3.5 - 5.0 g/dl HISTORICAL RESULTS Bilirubin 0.2 0.1 - 1.2 mg/dl HISTORICAL RESULTS Alk phos 59 40 - 130 Units/L HISTORICAL RESULTS AST 25 10 - 50 Units/L HISTORICAL RESULTS ALT 33 7 - 55 Units/L HISTORICAL RESULTS Plasma 03/15/2016 11:2 0 AM CDT Tova Zayas MD LAB BLOOD ORDERABLES Final Result HISTORICAL RESULTS * Plasma Human Immunodeficiency virus-1 (HIV-1) RNA (03/15/2016 11:20 AM CDT) [facility] HIV-1 RNA Not Detected [facility]I [facility] RESULTS Comment: Interpretive Data: The quantifiable range of this assay is 20 copies/mL to 10,000,000 copies/mL (1.30 log copies/mL to 7.00 log copies/mL). ??Testing was performed by the NIEL[employer] AmpliPrep/NIELS TaqMan HIV-1 Test version 2.0 ([employer] Testing performed at [facility] Current Interpretive Data was last revised on 2015. Plasma 03/15/2016 11:2 0 AM CDT oTva Zayas MD LAB BLOOD ORDERABLES Final Result Performing Organization Address [facility] de Phone Number HISTORICAL RESULTS * Serum glucose (03/15/2016 11:20 AM CDT) Glucose 92 70 - 199 mg/dl HISTORICAL RESULTS Serum 03/15/2016 11:2 0 AM CDT Tova Zayas MD LAB BLOOD ORDERABLES Final Result Performing Organization Address [facility] de Phone Number HISTORICAL RESULTS * (ABNORMAL) Blood cell count (CBC) (03/15/2016 11:20 AM CDT) WBC 4.6 3.8 - 9.9 K/cumm HISTORICAL RESULTS RBC 4.30 4.30 - 5.80 M/cumm HISTORICAL RESULTS Hgb 11.8(L) 13.0 - 17.5 g/dl HISTORICAL RESULTS Hct 36.6(L) 38.9 - 50.3 % HISTORICAL RESULTS MCV 85.1 81.3 - 96.4 fl HISTORICAL RESULTS MCH 27.4 27.1 - 33.3 pg HISTORICAL RESULTS MCHC 32.2(L) 32.3 - 35.7 g/dl HISTORICAL RESULTS Rdw 13.3 11.1 - 14.9 % HISTORICAL RESULTS RDW 41.4 35.7 - 48.1 fl HISTORICAL RESULTS Platelets 219 150 - 400 K/cumm HISTORICAL RESULTS MPV 11.3 9.1 - 12.3 fl HISTORICAL RESULTS NRBC 0.0 0.0 - 0.2 % HISTORIC AL RESULTS NRBC, abs 0.00 0.00 - 0.01 K/cumm HISTORICAL RESULTS Blood specimen (specimen) 03/15/2016 11:20 AM CDT Result [facility] Tova Zayas MD LAB BLOOD ORDERABLES Final Result HISTORICAL RESULTS * (ABNORMAL) Blood cell morphologic exam (03/15/2016 11:20 AM CDT) Neutrophils 30.4 % HISTORIC AL RESULTS Immature granulocytes 0.2 % HISTORICAL RESULTS Lymphocytes 54.0 % HISTORIC AL RESULTS Monos 9.2 % HISTORICAL RESULTS Eosinophils 5.3 % HISTORIC AL RESULTS Basophils 0.9 % HISTORICAL RESULTS Neutrophils, abs 1.4(L) 1.7 - 6.5 K/cumm HISTORICAL RESULTS Immature granulocyte, abs 0.0 0.0 - 0.1 K/cumm HISTORICAL RESULTS Lymphocytes, abs 2.5 0.8 - 3.3 K/cumm HISTORICAL RESULTS Monocytes, absolute 0.4 0.2 - 0.8 K/cumm HISTORICAL RESULTS Eosinophils, abs 0.2 0.0 - 0.5 K/cumm HISTORICAL RESULTS Basophils, abs 0.0 0.0 - 0.1 K/cumm HISTORICAL RESULTS Blood specimen (specimen) 03/15/2016 11:20 AM CDT Result [facility] Tova Zayas MD LAB BLOOD ORDERABLES Final Result Performing Organization Address City/[facility] Co de Phone Number HISTORICAL RESULTS * DISCHARGE LABORATORY CUMULATIVE REPORT (03/15/2016) Narrative 03/15/2016 Ordered by an unspecified provider. Result [facility] Historical Provider LAB BLOOD ORDERABLES Kareen l Result documented in this encounter Visit Diagnoses Diagnosis Encounter for general adult medical examination without abnormal findings Human immunodeficiency virus (HIV) disease (CMS/HCC) (HCC) Human immunodeficiency virus [HIV] disease documented in this encounter
--- OUTSIDE RECORDS SUMMARY | 2024-11-22 10:55 | XMS_ITS | Encounter Summary ---
Author Organization [facility] Address [address] [place] [address] Phone Care Team Providers Care Nurse Educator Name Role Phone Gucci Vilchis MD Primary Care Provider [phone] Encounter Details Date Type Department Care Team (Late st Contact Info) Description 12/04/2018 Orders Only [facility] Infectious Diseases [address] [place] [address] [address] [place] [address] Antoinette Riley PA [address] [facility] [address] [place] [address] STD exposure (Primary Dx); HIV disease (CMS/HCC); Needs flu shot Social History Tobacco Use Types Packs/Day Years Used Date Smoking Tobacco: Never Smokeless Tobacco: Never Sex and Gender Information Value Date Recorded Sex Assigned at Not on file 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 Patient instructed to come in for STD testing including RPR and treatment with Bicilllin x 1 for exposure to syphilis. Last RPR was non-reactive in 06/2018. Patient's next routine office visit is 12/13/2018. Patient may keep this appointment if he prefers Sunday appointment, or he may switch to earliest available with his usual provider on Jaky AM. Since he is having labs drawn for syphilis screening, will also order his routine labs to be done prior to his routine visit. Order also entered for patient to receive flu shot if he has not done so already. His last appointment was in June 2018, prior to when flu shots were available in ID clinic. ICIAN PRACTICE MANAGER documented in this encounter Plan of Treatment Not on file documented as of this encounter Results * Toxoplasma gondii antibody, IgG (12/05/2018 9:03 AM PHYSICIAN PRACTICE MANAGER) Pathologist [facility] Toxoplasma IgG Negative Negative [facility] Comment: Interpretive Data Negative - ??No detectable antibody. Equivocal - Presence of detectable antibody cannot be determined. Positive - ??Detectable level of antibody present. Current interpretive data was last revised on 2017. Blood specimen (specimen) 12/05/2018 9:03 AM PHYSICIAN PRACTICE MANAGER 12/05/2018 12:36 PM PHYSICIAN PRACTICE MANAGER Narrative [facility] - 12/05/2018 2:52 PM PHYSICIAN PRACTICE MANAGER Antoinette GANNON LAB MICROBIOLOGY - GENERAL ORDERABLES Final Result [facility] Department [place] [address] * (ABNORMAL) HIV-1 RNA PCR, quantitative (12/05/2018 9:03 AM PHYSICIAN PRACTICE MANAGER) Pathologist [facility] HIV-1 RNA Detected( A) [facility] Comment: Interpretive Data: The quantifiable range of this assay is 20 copies/mL to 10,000,000 copies/mL (1.30 log copies/mL to 7.00 log copies/mL). ??Testing was performed by the [employer] AmpliPrep/NIELS TaqMan HIV-1 Test version 2.0 ([employer] Testing performed at [facility] Current Interpretive Data was last revised on 2015. HIV-1 RNA, copies/mL 81 copies/mL [facility] HIV-1 RNA, log 1.91 log cps/mL [facility] Blood specimen (specimen) 12/05/2018 9:03 AM PHYSICIAN PRACTICE MANAGER 12/05/2018 1:02 PM PHYSICIAN PRACTICE MANAGER Narrative [facility] - 12/06/2018 3:09 PM PHYSICIAN PRACTICE MANAGER Antoinette GANNON LAB MICROBIOLOGY - GENERAL ORDERABLES Final Result Performing Organization Address [facility] Co de Phone Number [facility] [place] [address] * (ABNORMAL) T-helper cells (CD4) count (12/05/2018 9:03 AM PHYSICIAN PRACTICE MANAGER) [facility] CD4 pct 25(L) 31 - 64 % [facility] CD4 Absolute 560 365 - 1,294 cells/mcL [facility] Blood specimen (specimen) 12/05/2018 9:03 AM PHYSICIAN PRACTICE MANAGER 12/05/2018 12:36 PM PHYSICIAN PRACTICE MANAGER Narrative [facility] - 12/05/2018 8:15 PM PHYSICIAN PRACTICE MANAGER Antoinette GANNON LAB BLOOD ORDERABLES Final Result Performing Organization Address [facility] de Phone Number [facility] [place] [address] * CBC with auto differential (12/05/2018 9:03 AM PHYSICIAN PRACTICE MANAGER) [facility] WBC 4.3 3.8 - 9.9 K/cumm [facility] Hgb 13.0 13.0 - 17.5 g/dL [facility] Hct 39.0 38.9 - 50.3 % [facility] Plt 218 150 - 400 K/cumm [facility] MPV 10.9 9.1 - 12.3 fL [facility] RBC 4.62 4.30 - 5.80 M/cumm [facility] MCV 84.4 81.3 - 96.4 fL [facility] MCH 28.1 27.1 - 33.3 pg [facility] MCHC 33.3 32.3 - 35.7 g/dL [facility] RDW CV 13.6 11.1 - 14.9 % [facility] RDW SD 42.3 35.7 - 48.1 fL [facility] NRBC abs 0.00 0.00 - 0.01 K/cumm [facility] Blood specimen (specimen) 12/05/2018 9:03 AM PHYSICIAN PRACTICE MANAGER 12/05/2018 12:36 PM PHYSICIAN PRACTICE MANAGER Narrative [facility] - 12/05/2018 12:50 PM PHYSICIAN PRACTICE MANAGER Antoinette GANNON LAB BLOOD ORDERABLES Final Result Performing Organization Address [facility] de Phone Number [facility] Department [place] [address] * RPR, serum (12/05/2018 9:03 AM PHYSICIAN PRACTICE MANAGER) RPR Non-React jason Non-React jason [facility] Comment: Interpretive Data Testing performed by Multiplex Flow Immunoassay. Current interpretive data was last revised on 18. Blood specimen (specimen) 12/05/2018 9:03 AM PHYSICIAN PRACTICE MANAGER 12/05/2018 12:36 PM PHYSICIAN PRACTICE MANAGER Narrative [facility] - 12/05/2018 2:51 PM PHYSICIAN PRACTICE MANAGER Antoinette GANNON LAB MICROBIOLOGY - GENERAL ORDERABLES Final Result Performing Organization Address [facility] de Phone Number [facility] Department [place] [address] documented in this encounter Visit Diagnoses Diagnosis STD exposure- Primary HIV disease (CMS/HCC) (HCC) Human immunodeficiency virus [HIV] disease Needs flu shot Need for prophylactic vaccination and inoculation against influenza STD exposure HIV disease (CMS/HCC) (HCC) Human immunodeficiency virus [HIV] disease documented in this encounter Orders Medications Ordered That Jaycob ht Not Have Been Administered Count Last Ordered Date First Ordered Date penicillin G benzathine (BIC ILLIN-LA) injection 2.4 Million Units 1 12/04/2018 documented in this encounter Care Teams Nurse Educator Relationship Specialty Start Date End Date Gucci Vilchis MD PCP - General 04/16/17 08/08/22 [facility] Adding Machine Operator 10/30/18 12/08/21 documented as of this encounter
--- OUTSIDE RECORDS SUMMARY | 2024-11-22 10:55 | XMS_ITS | Encounter Summary ---
Author Organization [facility] Healthcare Address [address] [place] [address] Care Team Providers Care Top Installer Name Role Phone Gucci Vilchis MD Primary Care Provider [phone] Encounter Details Date Type Department Care Team (Latest Contact Info) Description 08/14/2017 11:12 AM CDT - 08/14/2017 11:59 PM CDT Hospital Encounter [facility] [phone] Fanny Reyes, BACON DE RINDER [address] [place] [address] Discharge Disposition: Discharge to home or self care Social History Tobacco Use Types Packs/Day Years Used Date Smoking Tobacco: Never Assessed Sex and Gender Information Value Date Recorded Sex Assigned at Not on file 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 STORE AT ROOMTEMPERATURE . 08/16/2016 8 [id number] i-tenof ALAFEN (GENVOYA) [phone] mg tablet TAKE ONE TABLET BY MOUTH ONCE DAILY WITH FOOD. STORE IN ORIGINAL CONTAINER AT ROOM TEMPERATURE. 08/16/2016 8 documented as of this encounter Discharge Disposition Disposition Code Departure Means Destination Discharge to home or self care documented in this encounter Plan of Treatment Not on file documented as of this encounter Procedures Procedure Name Priority Date/Time Associated Diagnosis Comments DISCHARGE LABORATORY CUMULATIVE REPORT 08/15/2017 12:00 AM CDT CS GLUCOSE Routine Gen Lab 08/14/2017 11:19 AM CDT DIFFERENTIAL AUTO Routine Gen Lab 08/14/2017 11: 19 AM CDT COMPREHENSIVE METABOLIC PANEL WITHOUT GLUCOSE (OUTREACH) Routine Gen Lab 08/14/2017 11:19 AM CDT N. GONORRHOEAE/C. TRACHOMATIS AMPLIFICATION TEST RTNm 08/14/2017 11:19 AM CDT CBC WITH AUTO DIFFERENTIAL Routine Gen Lab 08/14/2017 11:19 AM CDT HIV-1 RNA, QUANTITATIVE, PCR Routine Gen Lab 08/14/2017 11:19 AM CDT TOXOPLASMA GONDII ANTIBODY, IGG Routine Gen Lab 08/14/2017 11:19 AM CDT RPR Routine Gen Lab 08/14/2017 11:19 AM CDT T-HELPER CELLS (CD4) COUNT Routine Gen Lab 08/14/2017 11:19 AM CDT documented in this encounter Results * DISCHARGE LABORATORY CUMULATIVE REPORT (08/15/2017 12:00 AM CDT) Narrative 08/15/2017 12:00 AM CDT Ordered by an unspecified provider. us Historical Provider LAB BLOOD ORDERABLES Kareen l Result * Toxoplasma gondii antibody, IgG (08/14/2017 11:19 AM CDT) Toxoplasma IgG Negative Negative JUS JOHNSON Comment: Interpretive Data Negative - ??No detectable antibody. Equivocal - Presence of detectable antibody cannot be determined. Positive - ??Detectable level of antibody present. Current interpretive data was last revised on 2001. Blood specimen (specimen) 08/14/2017 11:19 AM CDT 08/14/2017 1:12 PM CDT Jodi May MD LAB MICROBIOLOGY - GENERA L ORDERABLES Final Result Performing Organization Address City/[facility]/ZIP Co de Phone Number [facility] [place] [address] * N. gonorrhoeae/C. trachomatis amplification test (08/14/2017 11:19 AM CDT) Report Final Report: Negative for: ??Chlamydia trachomatis rRNA Negative for: ??Neisseria gonorrhoeae rRNA [facility] Urine 08/14/2017 11:1 9 AM CDT 08/14/2017 1:47 PM CDT Narrative [facility] - 08/15/2017 3:05 PM CDT Testing performed by the [employer] APTIMA Combo 2 Assay. This nucleic acid amplification test (NAAT) detects ribosomal RNA (rRNA) from Chlamydia trachomatis and Neisseria gonorrhoeae using target capture,and Diesel Dinkey Engineer-Mediated Amplification (TMA). This test is approved by the [place] Food and Drug Administration for endocervical, vaginal, and male urethral swab specimens, in addition to male and female urine specimens. The performance characteristics for these specimen types have been verified by the [facility].The performance characteristics of this assay for pharyngeal and rectal specimens collected from cervical swab collection devices have been validated and verified by the [facility]. Verification studies support a lack of cross reactivity with other Neisseria species considered normal oropharyngeal bacterial marjorie. Rectal swab specimens containing excess stool may be inhibitory and result in false negatives for Chlamydia trachomatis or Neisseria gonorrhoeae. The performance characteristics of this test have not been evaluated in women or individuals less than 16 years of age. Jodi May MD LAB MICROBIOLOGY - GENERA L ORDERABLES Final Result Performing Organization Address [facility] Co de Phone Number [facility] [place] [address] * HIV-1 RNA, quantitative, PCR (08/14/2017 11:19 AM CDT) [facility] HIV-1 RNA Detected [facility] Comment: Interpretive Data: The quantifiable range of this assay is 20 copies/mL to 10,000,000 copies/mL (1.30 log copies/mL to 7.00 log copies/mL). ??Testing was performed by the [employer] AmpliPrep/[employer]ELS TaqMan HIV-1 Test version 2.0 ([employer] Testing performed at [facility] Current Interpretive Data was last revised on 2015. HIV-1 RNA, copies/mL <20 copies/mL [facility] HIV-1 RNA, log <1.30 log cps/mL [facility] Blood specimen (specimen) 08/14/2017 11:19 AM CDT 08/15/2017 7:33 AM CDT us Jodi May MD LAB MICROBIOLOGY - GENERA L ORDERABLES Final Result Performing Organization Address City/[facility]/ZIP Co de Phone Number [facility] Department [place] [address] * (ABNORMAL) T-helper cells (CD4) count (08/14/2017 11:19 AM CDT) [facility] CD4 pct 23(L) 31 - 64 % [facility] CD4 Absolute 488 365 - 1,294 cells/mcL [facility] Blood specimen (specimen) 08/14/2017 11:19 AM CDT 08/14/2017 1:03 PM CDT us Jodi May MD LAB BLOOD ORDERABLES Kareen l Result [facility] Department [place] [address] * RPR, serum (08/14/2017 11:19 AM CDT) [facility] RPR Nonreactive Nonreactive [facility] Blood specimen (specimen) 08/14/2017 11:19 AM CDT 08/14/2017 1:12 PM CDT us Jodi May MD LAB MICROBIOLOGY - GENERA L ORDERABLES Final Result Performing Organization Address City/[facility]/ZIP Co de Phone Number [facility] Department [place] [address] * CS GLUCOSE (08/14/2017 11:19 AM CDT) Pathologist [facility] Glucose 87 70 - 199 mg/dL [facility] Blood specimen (specimen) 08/14/2017 11:19 AM CDT 08/14/2017 1:12 PM CDT Jodi May MD LAB BLOOD ORDERABLES Kareen l Result Performing Organization Address [facility] de Phone Number [facility] Department [place] [address] * Comprehensive metabolic panel without glucose (outreach) (08/14/2017 11:19 AM CDT) Sodium 139 135 - 145 mmol/L [facility] Potassium, pl 4.1 3.3 - 4.9 mmol/L [facility] Chloride 104 97 - 110 mmol/L [facility] CO2 25 22 - 32 mmol/L [facility] Anion gap 10 2 - 15 mmol/L [facility] BUN 11 8 - 25 mg/dL [facility] Creatinine 1.05 0.80 - 1.30 mg/dL [facility] Calcium 9.7 8.5 - 10.3 mg/dL [facility] Protein, pl 7.8 6.5 - 8.5 g/dL [facility] Albumin 4.4 3.5 - 5.0 g/dL [facility] Bilirubin, total 0.3 0.1 - 1.2 mg/dL [facility] Alk phos 59 40 - 130 Units/L [facility] AST 29 10 - 50 Units/L [facility] ALT 33 7 - 55 Units/L [facility] Blood specimen (specimen) 08/14/2017 11:19 AM CDT 08/14/2017 1:12 PM CDT Jodi May MD LAB BLOOD ORDERABLES Kareen ridley Result Performing Organization Address [facility] Co de Phone Number [facility] Department [place] [address] * (ABNORMAL) Differential, auto (08/14/2017 11:19 AM CDT) Neutrophil pct 25.9 % [facility] Imm gran pct 0.0 % [facility] Lymphocyte pct 58.1 % [facility] Monocyte pct 9.4 % [facility] Eosinophil pct 5.5 % [facility] Basophil pct 1.1 % [facility] Neutrophil abs 1.13(L) 1.70 - 6.50 K/cumm [facility] Imm gran abs 0.00 0.00 - 0.10 K/cumm [facility] Lymphocyte abs 2.54 0.80 - 3.30 K/cumm [facility] Monocyte abs 0.41 0.20 - 0.80 K/cumm [facility] Eosinophil abs 0.24 0.00 - 0.50 K/cumm [facility] Basophil abs 0.05 0.00 - 0.10 K/cumm [facility] Blood specimen (specimen) 08/14/2017 11:19 AM CDT 08/14/2017 1:12 PM CDT Jodi May MD LAB BLOOD ORDERABLES Kareen ridley Result Performing Organization Address City/[facility] Co de Phone Number [facility] Department [place] [address] * (ABNORMAL) CBC with auto differential (08/14/2017 11:19 AM CDT) WBC 4.37 3.80 - 9.90 K/cumm [facility] RBC 4.34 4.30 - 5.80 M/cumm [facility] Hgb 12.4(L) 13.0 - 17.5 g/dL [facility] Hct 36.9(L) 38.9 - 50.3 % [facility] MCV 85.0 81.3 - 96.4 fL [facility] MCH 28.6 27.1 - 33.3 pg [facility] MCHC 33.6 32.3 - 35.7 g/dL [facility] RDW CV 14.0 11.1 - 14.9 % [facility] RDW SD 43.9 35.7 - 48.1 fL [facility] Plt 209 150 - 400 K/cumm [facility] MPV 11.0 9.1 - 12.3 fL [facility] NRBC 0.0 0.0 - 0.2 % [facility] NRBC abs 0.00 0.00 - 0.01 K/cumm [facility] Blood specimen (specimen) 08/14/2017 11:19 AM CDT 08/14/2017 1:12 PM CDT us Jodi May MD LAB BLOOD ORDERABLES Kareen ridley Result [facility] [place] [address] documented in this encounter Visit Diagnoses Not on filedocumented in this encounter Care Teams Top Installer Relationship Specialty Start Date End Date Gucci Vilchis MD PCP - General 04/16/17 08/08/22 documented as of this encounter
--- OUTSIDE RECORDS SUMMARY | 2024-11-22 10:55 | XMS_ITS | Encounter Summary ---
Author Organization [facility] Address [address] [place] [address] Phone Care Team Providers Care Cross Cut Sawyer Name Role Phone Gucci Vilchis MD Primary Care Provider [phone] Encounter Details Date Type Department Care Team (Late st Contact Info) Description 09/04/2018 Telephone [facility] Infectious Diseases [address] [place] [phone] Ashley Sanderson RN Social History Tobacco Use Types Packs/Day Years Used Date Smoking Tobacco: Never Smokeless Tobacco: Never Sex and Gender Information Value Date Recorded Sex Assigned at Not on file 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
--- OUTSIDE RECORDS SUMMARY | 2024-11-22 10:55 | XMS_ITS | Encounter Summary ---
Author Organization [facility] Address [address] [place] [address] Phone Care Team Providers Care Tassel Snipper Name Role Phone Gucci Vilchis MD Primary Care Provider [phone] Encounter Details Date Type Department Care Team (Late st Contact Info) Description 07/05/2018 9:45 AM CDT Office Visit [facility] Infectious Diseases [address] [place] [address] [address] [place] [address] Antoinette Riley PA [address] [facility] [address] [place] [address] HIV disease (CMS/HCC) (Primary Dx); Other iron deficiency anemia; Long-term use of high-risk medication Social History Tobacco Use Types Packs/Day Years Used Date Smoking Tobacco: Never Smokeless Tobacco: Never Sex and Gender Information Value Date Recorded Sex Assigned at Not on file 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 Gender Identity Not on file Sexual Orientation Not on file documented as of this encounter Last Filed Vital Signs Vital Sign Reading Time Taken Comments Blood Pressure 104/78 07/05/2018 9:39 AM CDT Pulse 70 07/05/2018 9:39 AM CDT Temperature 36.7 ??C (98.1 ??F) 07/05/2018 9:39 AM CD T Respiratory Rate - - Oxygen Saturation 97% 07/05/2018 9:39 AM CDT Inhaled Oxygen Concentration - - Weight 99.6 kg (219 lb 8 oz) 07/05/2018 9:39 AM CDT Height 190.5 cm (6' 3 ) 07/05/2018 9:39 AM CDT Body Mass Index 27.44 07/05/2018 9:39 AM CDT documented in this encounter Patient Instructions * Patient Instructions* Antoinette Riley PA - 07/05/2018 9:45 AM CDT 1) Continue taking Genvoya/Prezista every day with food. You're doing a great job! 2) You can take Prevacid at night for your GERD symptoms 3) You are getting a Tdap shot today- it's good for 10 years. 4) See you in 6 months, but call us if you need us earlier. documented in this encounter Progress Notes * Antoinette Riley PA - 07/05/2018 9:45 AM CDT Subjective/Objective Patient ID: Dashawn Howell is a 47 y.o. male. Chief Complaint No chief complaint on file. HPI Mr. DASHAWN HOWELL is a 47 year old man initially diagnosed with HIV in 1998, by patient report. cART history includes Combivir/Sustiva, Truvada/ddI/Prezista/Norvir and Atripla. Past Genotypes: November 2010- M184I/M, K103N, L100I/L, and P225H/P; April 2017- K103N, P225H. He is currently on Genvoya/Prezista with 100% adherence endorsed, no missed pills or side effects. Nov 2017: CD4 = 478 (26%), VLundetected. He presents for a routine visit today and reports to be doing well. He denies fevers, shaking chills, soaking night sweats, rashes, headaches, sore throat, cough, chest pain, shortness of breath, abdominal pain, nausea, vomiting, diarrhea, dysuria, pain/swelling in the muscles or joints, numbness/tingling of the extremities. He smokes an occasional Black and Mild. Drinks occasionally. Denies use of any illicit drugs. Reports sex with female partners, but states he is not sexually active. He declines triple screening for STIs today. On review of his previous labs today, it is noted that he has some mild anemia Hgb = 12.3, Hct = 36.6 in Nov 2017. He denies any blood in his stools or changes in his BMs. He denies any family history of colon cancer. However, he has noticed some dry heaves on occasion and was told that he might have GERD. He got some OTC Prevacid which seemed to help. Review of Systems Constitutional: Negative. HENT: Negative. Eyes: Negative. Respiratory: Negative. Cardiovascular: Negative. Gastrointestinal: Negative. Genitourinary: Negative. Musculoskeletal: Negative. Neurological: Negative. Psychiatric/Behavioral: Negative. Physical Exam Constitutional: He is oriented to person, place, and time. He appears well- developed and well-nourished. HENT: Head: Normocephalic and atraumatic. Mouth/Throat: Oropharynx is clear and moist. Eyes: Pupils are equal, round, and reactive to light. Conjunctivae and EOM are normal. Neck: Normal range of motion. Neck supple. Cardiovascular: Normal rate, regular rhythm and normal heart sounds. Pulmonary/Chest: Effort normal and breath sounds normal. Abdominal: Soft. Bowel sounds are normal. Musculoskeletal: Normal range of motion. Neurological: He is alert and oriented to person, place, and time. Skin: Skin is warm and dry. Psychiatric: He has a normal mood and affect. His behavior is normal. Vitals reviewed. Vitals BP 104/78 (BP Location: Right arm, Patient Position: Sitting) Pulse 70 Temp 36.7 ??C (98.1 ??F) (Oral) Ht 190.5 cm (6' 3 ) Wt 99.6 kg (219 lb 8 oz) SpO2 97% BMI 27.44 kg/m?? HIV Routine Labs: RPR - NR Date: 06/2018 GC/CT NAAT - urine (check q3-6 months if high risk) negative Date: 08/2017 GC/CT NAAT - rectum (check q3-6 months if high risk) negative Date: 04/2017 GC/CT NAAT - oral (check q3-6 months if high risk) negative Date: 04/2017 YEARLY: T spot/quantiferon (or PPD) Date: 04/2017 Lipids, fasting TC = 294, Tri = 140, HDL = 51, LDL = 215 Date: 06/2018 Hepatitis C Ab Negative 06/2018 HCV RNA (consider if CD4<200, high risk) not applicable Urinalysis 1+ blood 11/2017, 06/2018 BASELINE (check once): HLA B*[id number] negative Date 11/2013 CMV IgG positive Date: 2009 Toxo IgG neg Date: 08/2017 Hep A immune Hep B immune G6PD WNL 08/2016 BONE DENSITY: N/A Cancer Screening: Smoking Status: Nonsmoker C-scope: order when appropriate PSA: order when appropriate ASCVD: 6.0% 10-year risk. Assessment/Plan This is a 47 year old man initially diagnosed with HIV in 1998, by patient report. ART history includes Combivir/Sustiva, Truvada/ddI/Prezista/Norvir and Atripla. He is currently on Genvoya/Prezista.Most recent labs from Nov 2017: CD4 = 478 (26%), VL undetected. He is here for follow up. He is feeling well and is asymptomatic. Diagnoses and all orders for this visit: HIV disease (CMS/HCC) (B20) (Primary) - Tdap vaccine greater than or equal to 7yo IM Other iron deficiency anemia (D50.8) - Ferritin; Future - Iron profile; Future Long-term use of high-risk medication (Z79.899) - CBC with auto differential - Comprehensive metabolic panel (Outreach) - T-helper cells (CD4) count - HIV-1 RNA PCR, quantitative - RPR, serum - Urinalysis reflex for neutropenic patient Urine - Hemoglobin A1c - Lipid panel - Hepatitis C antibody - Differential, auto - Comprehensive metabolic panel, without glucose (Outreach) - Glucose, random (Outreach) - Urinalysis, microscopic only 1. HIV infection: - Continue Genvoya and Prezista with 100% adherence stressed to maintain viral suppression and prevent resistance. - Take Genvoya and Prezista daily with food - Space Genvoya from vitamins and Prevacid - Therapeutic drug monitoring- check CBC, CMP, CD4, VL to assess drug toxicity and efficacy - Safer sex reviewed with emphasis on barrier protection with all partners and all types of intercourse to prevent HIV transmission and STD acquisition - Declines triple screen today 2. Anemia - Hgb = 12.3, Hct = 36.6 in Nov 2017. - He denies any blood in his stools or changes in his BMs. - He denies any family history of colon cancer. - Check CBC, iron panel, and serum ferritin today. Suspect anemia of chronic disease. 3. GERD - Presented as dry heaves on occasion - Symptoms improved on OTC Prevacid - May continue Prevacid, but take at opposite time of Genvoya/Prezista - Limit spicy food, alcohol, caffeine, fried foods - Stay upright after eating (do not lay down with full belly) - If symptoms worsen, please notify ID clinic 4. Hx Syphilis: s/p treatment 2009 with undetectable RPR titers x 2. - monitor RPR, will check today 5. HM Flu shot 08/2017 Prevnar 05/2014 Pneumovax 12/2012- needs second injection next visit Tdap today RTC in 4 -6 months adherence counseling done risk reduction counseling done pre-conception counseling N/A The supervising physician present in this office suite for this Physician Artisan Plasterer, Antoinette Riley PA-C, is Dr. Trevor Sanchez. documented in this encounter Plan of Treatment Not on file documented as of this encounter Procedures Procedure Name Priority Date/Time Associated Diagnosis Comments HIV-1 RNA, QUANTITATIVE, PCR Routine 07/05/2018 10:30 AM CDT Long-term use of high-risk medication GLUCOSE, RANDOM (OUTREACH) Routine 07/05/2018 10:29 AM CDT Long-term use of high-risk medication DIFFERENTIAL AUTO Routine 07/05/2018 10: 29 AM CDT Long-term use of high-risk medication URINALYSIS WITH REFLEX FOR NEUTROPENIC PATIENT Routine 07/05/2018 10:29 AM CDT Long-term use of high-risk medication IRON PROFILE W/ IBC Routine 07/05/2018 1 0:29 AM CDT Other iron deficiency anemia COMPREHENSIVE METABOLIC PANEL WITHOUT GLUCOSE (OUTREACH) Routine 07/05/2018 10:29 AM CDT Long-term use of high-risk medication COMPREHENSIVE METABOLIC PANEL (OUTREACH) Routine 07/05/2018 10:29 AM CDT Long-term use of high-risk medication CBC WITH AUTO DIFFERENTIAL Routine 07/05/2018 10:29 AM CDT Long-term use of high-risk medication HEPATITIS C ANTIBODY Routine 07/05/2018 10:29 AM CDT Long-term use of high-risk medication RPR Routine 07/05/2018 10:29 AM CDT Long-term use of high-risk medication URINALYSIS, MICROSCOPIC ONLY Routine 07/05/2018 10:29 AM CDT Long-term use of high-risk medication T-HELPER CELLS (CD4) COUNT Routine 07/05/2018 10:29 AM CDT Long-term use of high-risk medication HEMOGLOBIN A1C Routine 07/05/2018 10:29 AM CDT Long-term use of high-risk medication FERRITIN Routine 07/05/2018 10:29 AM CDT Other iron deficiency anemia LIPID PANEL Routine 07/05/2018 10:29 AM CDT Long-term use of high-risk medication documented in this encounter Results * HIV-1 RNA PCR, quantitative (07/05/2018 10:30 AM CDT) [facility] HIV-1 RNA Not Detected [facility] Comment: Interpretive Data: The quantifiable range of this assay is 20 copies/mL to 10,000,000 copies/mL (1.30 log copies/mL to 7.00 log copies/mL). ??Testing was performed by the [employer] AmpliPrep/NIELS TaqMan HIV-1 Test version 2.0 ([employer] Testing performed at [facility] Current Interpretive Data was last revised on 2015. Blood specimen (specimen) 07/05/2018 10:30 AM CDT 07/05/2018 12:18 PM CDT Narrative [facility] - 07/08/2018 7:31 AM CDT Antoinette GANNON LAB MICROBIOLOGY - GENERAL ORDERABLES Final Result Performing Organization Address [facility] de Phone Number [facility] [place] [address] * (ABNORMAL) Urinalysis, microscopic only (07/05/2018 10:29 AM CDT) WBC, ur 0-5 0 - 5 /HPF [facility] RBC, ur 0-5 0 - 5 /HPF [facility] Epithelial cells, squamous, ur 1-5 0 - 5 /HPF [facility] Mucous, ur Present(A) [facility] Urine 07/05/2018 10:2 9 AM CDT 07/05/2018 11:56 AM CDT Narrative [facility] - 07/05/2018 12:15 PM CDT Antoinette GANNON LAB URINE ORDERABLES Final Result Performing Organization Address [facility] Phone Number [facility] [place] [address] * Glucose, random (Outreach) (07/05/2018 10:29 AM CDT) Glucose 97 70 - 199 mg/dL [facility] Comment: Interpretive Data Fasting glucose >/= [...] was last revised 2017. Blood specimen (specimen) 07/05/2018 10:29 AM CDT 07/05/2018 11:56 AM CDT Narrative [facility] - 07/05/2018 12:27 PM CDT Antoinette GANNON LAB BLOOD ORDERABLES Final Result Performing Organization Address City/[facility]/ZIP Co de Phone Number [facility] [place] [address] * Comprehensive metabolic panel, without glucose (Outreach) (07/05/2018 10:29 AM CDT) Pathologist [facility] Sodium 138 135 - 145 mmol/L [facility] Potassium, pl 3.8 3.3 - 4.9 mmol/L [facility] Chloride 104 97 - 110 mmol/L [facility] CO2 28 22 - 32 mmol/L [facility] Anion gap 6 2 - 15 mmol/L [facility] BUN 9 8 - 25 mg/dL [facility] Creatinine 0.91 0.80 - 1.30 mg/dL [facility] Calcium 9.4 8.5 - 10.3 mg/dL [facility] Protein, pl 8.2 6.5 - 8.5 g/dL [facility] Albumin 4.6 3.5 - 5.0 g/dL [facility] Bilirubin, total 0.3 0.1 - 1.2 mg/dL [facility] Alk phos 57 40 - 130 Units/L [facility] AST 25 10 - 50 Units/L [facility] ALT 37 7 - 55 Units/L [facility] Blood specimen (specimen) 07/05/2018 10:29 AM CDT 07/05/2018 11:56 AM CDT [facility]ative [facility] - 07/05/2018 12:31 PM CDT Antoinette GANNON LAB BLOOD ORDERABLES Final Result [facility] [place] [address] * (ABNORMAL) Differential, auto (07/05/2018 10:29 AM CDT) Neutrophil abs 1.1(L) 1.7 - 6.5 K/cumm [facility] Imm gran abs 0.0 0.0 - 0.1 K/cumm [facility] Lymphocyte abs 2.2 0.8 - 3.3 K/cumm [facility] Monocyte abs 0.4 0.2 - 0.8 K/cumm [facility] Eosinophil abs 0.2 0.0 - 0.5 K/cumm [facility] Basophil abs 0.0 0.0 - 0.1 K/cumm [facility] Neutrophil pct 28.1 % [facility] Comment: Interpretive Data Percent cell count reference ranges are not reported, since discordance with absolute values may lead to misinterpretation of CBC data. Current Interpretive Data was last revised on 2018. Imm gran pct 0.3 % [facility] Comment: Interpretive Data Percent cell count reference ranges are not reported, since discordance with absolute values may lead to misinterpretation of CBC data. Current Interpretive Data was last revised on 2018. Lymphocyte pct 56.9 % [facility] Comment: Interpretive Data Percent cell count reference ranges are not reported, since discordance with absolute values may lead to misinterpretation of CBC data. Current Interpretive Data was last revised on 2018. Monocyte pct 9.7 % [facility] Comment: Interpretive Data Percent cell count reference ranges are not reported, since discordance with absolute values may lead to misinterpretation of CBC data. Current Interpretive Data was last revised on 2018. Eosinophil pct 4.2 % [facility] Comment: Interpretive Data Percent cell count reference ranges are not reported, since discordance with absolute values may lead to misinterpretation of CBC data. Current Interpretive Data was last revised on 2018. Basophil pct 0.8 % [facility] Comment: Interpretive Data Percent cell count reference ranges are not reported, since discordance with absolute values may lead to misinterpretation of CBC data. Current Interpretive Data was last revised on 2018. Blood specimen (specimen) 07/05/2018 10:29 AM CDT 07/05/2018 11:56 AM CDT Narrative [facility] - 07/05/2018 12:12 PM CDT Antoinette GANNON LAB BLOOD ORDERABLES Final Result Performing Organization Address [facility] de Phone Number [facility] [place] [address] * Hepatitis C antibody (07/05/2018 10:29 AM CDT) Pathologist [facility] [place] Hep C Ab Nonreactive Nonreactive [facility] Comment: Interpretive Data Positive and greyzone results should be confirmed by a molecular method. If positive or greyzone, a second separately collected sample should be submitted for Hepatitis C Virus RNA. Detection and Quantitation by Real-Time Reverse Superintendent Terminal-PCR.Current Interpretive data was last revised on 2017. Blood specimen (specimen) 07/05/2018 10:29 AM CDT 07/05/2018 11:56 AM CDT Narrative [facility] - 07/05/2018 12:56 PM CDT Antoinette GANNON LAB MICROBIOLOGY - GENERAL ORDERABLES Edited Result - Final Performing Organization Address [facility] de Phone Number [facility] [place] [address] * (ABNORMAL) Lipid panel (07/05/2018 10:29 AM CDT) [facility] Cholesterol 294(H) 30 - 199 mg/dL [facility] Comment: Interpretive Data Ages < or [...] Data was last revised on 2018. Triglycerides 140 <=149 mg/dL [facility] Comment: Interpretive Data Ages < or [...] Data was last revised on 2018. HDL 51 >=40 mg/dL [facility] Comment: Interpretive Data Ages < or [...] was last revised on 2018. LDL, calculated 215(H) <=129 mg/dL [facility] Comment: Interpretive Data Ages < or [...] was last revised on 2018. Non-HDL Cholesterol 243 mg/dL [facility] Comment: Interpretive Data Ages < or [...] last revised on 2018. Chol/HDL ratio 6 [facility] Blood specimen (specimen) 07/05/2018 10:29 AM CDT 07/05/2018 11:56 AM CDT Narrative [facility] - 07/05/2018 12:31 PM CDT us Antoinette GANNON LAB BLOOD ORDERABLES Final Result [facility] [place] [address] * Hemoglobin A1c (07/05/2018 10:29 AM CDT) Hgb A1C 5.6 4.0 - 5.6 % [facility] Estimated Average Glucose 114 mg/dL [facility] Comment: The ADA recommends reporting an estimated Average Glucose (eAG) with all Hemoglobin A1c results using the equation derived from a study of 507 normal and diabetic adults. ??Minority populations were underrepresented and children were not included. ?? (Diabetes Care 31:7451-9802, 2007). ??The eAG is not equivalent to a fasting glucose. Blood specimen (specimen) 07/05/2018 10:29 AM CDT 07/05/2018 11:56 AM CDT Narrative [facility] - 07/05/2018 12:21 PM CDT Antoinette GANNON LAB BLOOD ORDERABLES Final Result [facility] One [facility] Department [place] [address] * (ABNORMAL) Urinalysis reflex for neutropenic patient Urine (07/05/2018 10:29 AM CDT) Pathologist [facility] Color, ur Yellow Yellow [facility] Clarity, ur Clear Clear [facility] Specific gravity, ur 1.019 1.010 - 1.[address] [facility] pH, urine 5.[address] [facility] Protein, ur ql Negative Negative [facility] Glucose, ur ql Negative Negative [facility] Ketones, ur Negative Negative [facility] Bilirubin, ur Negative Negative [facility] Blood, ur 1+(A) Negative [facility] Urobilinogen, ur <2.0 <2.0 mg/dL [facility] Nitrite, ur Negative Negative [facility] Leukocyte esterase, ur Negative Negative [facility] Urine 07/05/2018 10:2 9 AM CDT 07/05/2018 11:56 AM CDT Narrative [facility] - 07/05/2018 12:10 PM CDT ?? Urine pH is affected by diet, medications, systemic acid-base disturbances, and renal tubular function. ??pH may affect urinary stone formation. ??For example, urine pH below 6.0 may help reduce the tendency for calcium phosphate stones and pH greater than 6.0 may reduce the tendency for uric acid stone formation. Source: [facility]. Last revised 11-22-2017 Antoinette GANNON LAB MICROBIOLOGY - GENERAL ORDERABLES Final Result Performing Organization Address [facility] de Phone Number [facility] [place] [address] * RPR, serum (07/05/2018 10:29 AM CDT) RPR Nonreactive Nonreactive [facility] Blood specimen (specimen) 07/05/2018 10:29 AM CDT 07/05/2018 11:56 AM CDT Narrative [facility] - 07/05/2018 1:09 PM CDT Antoinette GANNON LAB MICROBIOLOGY - GENERAL ORDERABLES Final Result Performing Organization Address [facility] [place] [address] * (ABNORMAL) T-helper cells (CD4) count (07/05/2018 10:29 AM CDT) CD4 pct 27(L) 31 - 64 % [facility] CD4 Absolute 572 365 - 1,294 cells/mcL [facility] Blood specimen (specimen) 07/05/2018 10:29 AM CDT 07/05/2018 11:56 AM CDT Narrative [facility] - 07/05/2018 2:49 PM CDT Antoinette GANNON LAB BLOOD ORDERABLES Final Result Performing Organization Address [facility] [place] [address] * CBC with auto differential (07/05/2018 10:29 AM CDT) WBC 3.8 3.8 - 9.9 K/cumm [facility] Hgb 13.3 13.0 - 17.5 g/dL [facility] Hct 39.8 38.9 - 50.3 % [facility] Plt 228 150 - 400 K/cumm [facility] MPV 10.7 9.1 - 12.[address] [facility] RBC 4.76 4.30 - 5.80 M/cumm [facility] MCV 83.6 81.3 - 96.[address] [facility] MCH 27.9 27.1 - 33.[address] [facility] MCHC 33.4 32.3 - 35.7 g/dL [facility] RDW CV 12.8 11.1 - 14.9 % [facility] RDW SD 38.8 35.7 - 48.[address] [facility] NRBC abs 0.00 0.00 - 0.01 K/cumm [facility] Blood specimen (specimen) 07/05/2018 10:29 AM CDT 07/05/2018 11:56 AM CDT Narrative [facility] - 07/05/2018 12:12 PM CDT Antoinette GANNON LAB BLOOD ORDERABLES Final Result [facility] One [facility] [place] [address] * Iron profile (07/05/2018 10:29 AM CDT) Pathologist [facility] Iron 103 50 - 150 mcg/dL [facility] UIBC 194 112 - 347 mcg/dL [facility] TIBC 297 250 - 400 mcg/dL [facility] Transferrin saturation 35 20 - 50 % [facility] Blood specimen (specimen) 07/05/2018 10:29 AM CDT 07/05/2018 11:56 AM CDT Narrative [facility] - 07/05/2018 12:33 PM CDT Antoinette Aarti GANNON LAB BLOOD ORDERABLES Final Result Performing Organization Address City/[facility]/ZIP Co de Phone Number [facility] [place] [address] * (ABNORMAL) Ferritin (07/05/2018 10:29 AM CDT) Ferritin 518(H) 30 - 400 ng/mL [facility] Blood specimen (specimen) 07/05/2018 10:29 AM CDT 07/05/2018 11:56 AM CDT Narrative [facility] - 07/05/2018 12:37 PM CDT Antoinette GANNON LAB BLOOD ORDERABLES Final Result Performing Organization Address [facility] [place] [address] documented in this encounter Visit Diagnoses Diagnosis HIV disease (CMS/HCC) (HCC)- Primary Human immunodeficiency virus [HIV] disease Other iron deficiency anemia Long-term use of high-risk medication documented in this encounter Orders Immunization/Injection Count Last Ordered Date First Ordered Date TDAP VACCINE GREATER THAN OR EQUAL TO 7YO IM 1 07/05/2018 documented in this encounter Care Teams Tassel Snipper Relationship Specialty Start Date End Date Gucci Vilchis MD PCP - General 04/16/17 08/08/22 documented as of this encounter
--- OUTSIDE RECORDS SUMMARY | 2024-11-22 10:55 | XMS_ITS | Encounter Summary ---
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 Gender Identity Not on file Sexual Orientation Not on file documented as of this encounter Plan of Treatment Not on file documented as of this encounter Procedures Procedure Name Priority Date/Time Associated Diagnosis Comments URINE CULTURE Routine Gen Lab 07/05/2018 10:29 AM CDT documented in this encounter Results * Urine culture (07/05/2018 10:29 AM CDT) Report Final Report: Less than 100,000 colonies/mL (clinically insignificant growth based on current clinical standards) [facility] Organism (CLINICALLY INSIGNIFICANT GROWTH [facility] Urine 07/05/2018 10:2 9 AM CDT 07/05/2018 1:35 PM CDT Narrative [facility] - 07/06/2018 7:45 AM CDT Urine culture reflexed based upon urinalysis results. Testing performed by [facility] ([phone]) Antoinette [facility] MICROBIOLOGY - GENERAL ORDERABLES Final Result [facility] [place] [address] documented in this encounter Visit Diagnoses Not on filedocumented in this encounter Care Teams Valver Relationship Specialty Start Date End Date Gucci Vilchis MD PCP - General 04/16/17 08/08/22 documented as of this encounter
--- OUTSIDE RECORDS SUMMARY | 2024-11-22 10:55 | XMS_ITS | Encounter Summary ---
Author Organization [facility] Address [address] [facility] [address] [place] [address] Phone Care Team Providers Care Insurance Verification Specialist Name Role Phone Gucci Vilchis MD Primary Care Provider [phone] Encounter Details Date Type Department Care Team (Late st Contact Info) Description 12/04/2018 Telephone [facility] Infectious Diseases [address] [place] [phone] Sarbjit Becker, [facility] Social History Tobacco Use Types Packs/Day Years Used Date Smoking Tobacco: Never Smokeless Tobacco: Never Sex and Gender Information Value Date Recorded Sex Assigned at Not on file Legal Sex Male 7:55 PM TRAY DELIVERY AIDE Gender Identity Not on file Sexual Orientation Not on file documented as of this encounter Miscellaneous Notes * Telephone Encounter - Ashley Sanderson RN - 12/04/2018 11:35 AM TRAY DELIVERY AIDE No - just fyi DELIVERY AIDE * Telephone Encounter - Flora Humphries - 12/04/2018 11:28 AM CST Do you need me to follow up with anything for this? DELIVERY AIDE * Telephone Encounter - Ashley Sanderson RN - 12/04/2018 11:25 AM TRAY DELIVERY AIDE MA team and CM - please see below Philana - I already ordered bicillin and he plans to come in tomorrow and move his appt back to Sunday, I transferred him to scheduling. PT was informed he was exposed to syphilis (partner treated) Pt was informed of treatment: 2.4 MU penicillin x 1 per Antoinette Riley MA team informed that patient will be returning for injection Patient informed to abstain from sexual contact for 10 days post treatment and to inform all partners of test results. Discussed importance of using protection with all forms of sexual contact to protect against STI and reminded of availability of condoms and lubricant in clinic. Reviewed all drug allergies with patient. Patient alerted that both shelter case manager and Health Department will contact patient regarding results. Providers and shelter case manager were notified of STI and treatment. DELIVERY AIDE * Telephone Encounter - Antoinette Riley PA - 12/04/2018 11:13 AM TRAY DELIVERY AIDE Yes please. His next appt is 12/13/2018 with Eileen. I'm not sure if he asked for a Sunday appointment. He can keep this appointment if he would like or switch to next earliest available with me on Sunday AM. But he absolutely should come in as soon as possible for STD testing and Bicillin. We could do his labs when he comes in in preparation for his next routine visit. I can put in the orders. Antoinette DELIVERY AIDE * Telephone Encounter - Ashley Sanderson RN - 12/04/2018 9:56 AM TRAY DELIVERY AIDE Antoinette - I believe this is one of your patients. He is calling after finding out that partner was treated for syphillis Last RPR for patient was negative in june of 2018 Would you want him to come in only for testing and one IM bicillin? DELIVERY AIDE * Telephone Encounter - Sarbjit Becker MA - 12/04/2018 9:46 AM TRAY DELIVERY AIDE Pt call back with the same concern, for a sooner appointment. DELIVERY AIDE documented in this encounter Plan of Treatment Not on file documented as of this encounter Visit Diagnoses Not on filedocumented in this encounter Care Teams Insurance Verification Specialist Relationship Specialty Start Date End Date Gucci Vilchis MD PCP - General 04/16/17 08/08/22 [facility] Patrol Commander 10/30/18 12/08/21 documented as of this encounter
--- OUTSIDE RECORDS SUMMARY | 2024-11-22 10:55 | XMS_ITS | Encounter Summary ---
Author Organization [facility] Address [address] [facility] [address] [place] [address] Phone Care Team Providers Care Book Author Name Role Phone Gucci Vilchis MD Primary Care Provider [phone] Encounter Details Date Type Department Care Team (Late st Contact Info) Description 12/03/2018 Telephone [facility] Infectious Diseases [address] [place] [phone] Sarbjit Becker RMA Social History Tobacco Use Types Packs/Day Years Used Date Smoking Tobacco: Never Smokeless Tobacco: Never Sex and Gender Information Value Date Recorded Sex Assigned at Not on file Legal Sex Male 7:55 PM MANAGER GREEN Gender Identity Not on file Sexual Orientation Not on file documented as of this encounter Miscellaneous Notes * Telephone Encounter - Sarbjit Becker MA - 12/03/2018 1:20 PM MANAGER GREEN Pt is requesting a sooner appointment.[phone]. GER GREEN documented in this encounter Plan of Treatment Not on file documented as of this encounter Visit Diagnoses Not on filedocumented in this encounter Care Teams Book Author Relationship Specialty Start Date End Date Gucci Vilchis MD PCP - General 04/16/17 08/08/22 [facility] Homicide Squad Commanding Officer 10/30/18 12/08/21 documented as of this encounter
--- OUTSIDE RECORDS SUMMARY | 2024-11-22 10:56 | XMS_ITS | Encounter Summary ---
Author Organization [facility] Healthcare Address [address] [place] [address] Care Team Providers Care Airplane Designer Name Role Phone Unavailable Primary Care Provider Unavailabl e Encounter Details Date Type Department Care Team (Late st Contact Info) Description 03/23/2007 11:10 AM CDT - 03/23/2007 3:28 PM CDT Hospital Encounter [facility] Dave, Garrett Vilchis, Gucci Hargrove MD [address] [address] Social History Tobacco Use Types Packs/Day Years Used Date Smoking Tobacco: Never Assessed Sex and Gender Information Value Date Recorded Sex Assigned at Not on file Legal Sex Male 7:55 PM AIR SEALING TECHNICIAN Gender Identity Not on file Sexual Orientation Not on file documented as of this encounter Plan of Treatment Not on file documented as of this encounter Visit Diagnoses Not on filedocumented in this encounter
--- OUTSIDE RECORDS SUMMARY | 2024-11-22 10:56 | XMS_ITS | Encounter Summary ---
Author Organization [facility] Healthcare Address [address] [place] [address] Care Team Providers Care Keyboard Teacher Name Role Phone Unavailable Primary Care Provider Unavailabl e Encounter Details Date Type Department Care Team (Late st Contact Info) Description 07/01/2007 11:22 AM CDT - 07/01/2007 2:50 PM CDT Hospital Encounter [facility] Kirti King MD [address] [place] [address] Gucci Vilchis MD [address] [address] Social History Tobacco Use Types Packs/Day Years Used Date Smoking Tobacco: Never Assessed Sex and Gender Information Value Date Recorded Sex Assigned at Not on file Legal Sex Male 7:55 PM GLASS BREAKER Gender Identity Not on file Sexual Orientation Not on file documented as of this encounter Plan of Treatment Not on file documented as of this encounter Visit Diagnoses Not on filedocumented in this encounter
--- OUTSIDE RECORDS SUMMARY | 2024-11-22 10:56 | XMS_ITS | Encounter Summary ---
Author Organization [facility] Healthcare Address [address] [place] [address] Care Team Providers Care Counter Caser Name Role Phone Unavailable Primary Care Provider Unavailabl e Encounter Details Date Type Department Care Team (Late st Contact Info) Description 10/17/2007 3:48 AM YOUTH DIRECTOR - 10/17/2007 4:30 AM YOUTH DIRECTOR Hospital Encounter [facility] Eliseo Ceja MD [address] [place] [address] Gucci Vilchis MD [address] [address] Social History Tobacco Use Types Packs/Day Years Used Date Smoking Tobacco: Never Assessed Sex and Gender Information Value Date Recorded Sex Assigned at Not on file Legal Sex Male 7:55 PM YOUTH DIRECTOR Gender Identity Not on file Sexual Orientation Not on file documented as of this encounter Plan of Treatment Not on file documented as of this encounter Visit Diagnoses Not on filedocumented in this encounter
--- OUTSIDE RECORDS SUMMARY | 2024-11-22 10:56 | XMS_ITS | Encounter Summary ---
Author Organization [facility] Healthcare Address [address] [place] [address] Care Team Providers Care Operations Staff Specialist Security Name Role Phone Unavailable Primary Care Provider Unavailabl e Encounter Details Date Type Department Care Team (Late st Contact Info) Description 05/29/2007 5:49 PM CDT - 05/29/2007 7:28 PM CDT Hospital Encounter [facility] Dave, Garrett Vilchis, Gucci Hargrove MD [address] [address] Social History Tobacco Use Types Packs/Day Years Used Date Smoking Tobacco: Never Assessed Sex and Gender Information Value Date Recorded Sex Assigned at Not on file Legal Sex Male 7:55 PM RESEARCH AND EVALUATION MANAGER Gender Identity Not on file Sexual Orientation Not on file documented as of this encounter Plan of Treatment Not on file documented as of this encounter Visit Diagnoses Not on filedocumented in this encounter
--- OUTSIDE RECORDS SUMMARY | 2024-11-22 10:56 | XMS_ITS | Encounter Summary ---
Author Organization [facility] Care Team Providers Care Economic Analysis Director Name Role Phone Unavailable Primary Care Provider Unavailabl e Encounter Details Date Type Department Care Team (Latest Contact Info) Description 06/07/2011 3:45 PM CDT - 06/07/2011 9:13 PM CDT Hospital Encounter [facility] Bo Wilks MD [address] [facility] [address] [place] [address] Cellulitis and abscess of neck; Human immunodeficiency virus (HIV) disease (CMS/HCC) ([facility]); Tobacco use disorder Social History Tobacco Use Types Packs/Day Years Used Date Smoking Tobacco: Never Assessed Sex and Gender Information Value Date Recorded Sex Assigned at Not on file Legal Sex Male 7:55 PM SALES OPERATIONS SPECIALIST Gender Identity Not on file Sexual Orientation Not on file documented as of this encounter Plan of Treatment Not on file documented as of this encounter Visit Diagnoses Diagnosis Cellulitis and abscess of neck Human immunodeficiency virus (HIV) disease (CMS/HCC) (HCC) Human immunodeficiency virus [HIV] disease Tobacco use disorder documented in this encounter
--- OUTSIDE RECORDS SUMMARY | 2024-11-22 16:12 | XMS_ITS | Encounter Summary ---
Author Organization [facility] Address [address] [place] [address]. [place], [place] [address] [place] [address] Care Team Providers Care Docking Saw Operator Name Role Phone Carlos Bonilla MD Primary Care Prov ider Reason for Visit * Reason Onset Date Comments Question 10/03/2024 Encounter Details Date Type Department Care Team (Late st Contact Info) Description 10/03/2024 Telephone [facility] Family Medicine - [place] [address] [facility] [place] [address] [place] [address] [place] [address] Question Social History Tobacco Use Types Packs/Day [...] back to advise she is going to [facility] weight management. I advised him to let PCP know to submit a referral for him and she is starting in November. He vu and had no other concerns at this time. SIFYING MACHINE OPERATOR * Delma Rivera - 10/03/2024 9:15 AM CST Patient is wanting to know where Dr. Woo will be going for Weight Management. CB# is [phone] SIFYING MACHINE OPERATOR documented in this encounter Plan of Treatment Upcoming Encounters Date Type Department Care Team (Late st Contact Info) Description 12/09/2024 9:20 AM CLASSIFYING MACHINE OPERATOR Office Visit [facility] Medical [facility] Family Medicine - [address], [address] [place] [phone] Carlos Bonilla MD [address] [place] [phone] documented as of this encounter Visit Diagnoses Not on filedocumented in this encounter Care Teams Docking Saw Operator Relationship Specialty Start Date End Date Carlos Bonilla MD [address] [place] [address], [address] [address] PCP - General FAMILY PRACTICE 10/03/24 documented as of this encounter
--- OUTSIDE RECORDS SUMMARY | 2024-11-22 16:12 | XMS_ITS | Encounter Summary ---
Author Organization [facility] Address [address] [facility] [place] [address] Care Team Providers Care Bank Officer Name Role Phone Unavailable Primary Care Provider Unavailabl e Reason for Visit * Reason Comments Abscess c/o possible boil rt chin x 2 wks. Swelling, purulent drainage. No fever, chills. Encounter Details Date Type Department Care Team (Late st Contact Info) Description 11/29/2011 3:12 PM NAILING MACHINE FEEDER - 11/29/2011 3:42 PM NAILING MACHINE FEEDER Emergency ER at [facility] [address] [place] [address] Jelani Brown MD [facility] [address] [facility] [address] [place] [address] Cellulitis and abscess of face Discharge Disposition: [...] Comments Blood Pressure 115/89 11/29/2011 3:20 PM NAILING MACHINE FEEDER Pulse 80 11/29/2011 3:20 PM NAILING MACHINE FEEDER Temperature 36.6 ??C (97.8 ??F) 11/29/2011 3:20 PM CS T Respiratory Rate 16 11/29/2011 3:20 PM NAILING MACHINE FEEDER Oxygen Saturation 99% 11/29/2011 3:20 PM NAILING MACHINE FEEDER Inhaled Oxygen Concentration - - Weight 88.5 kg (195 lb) 11/29/2011 3:20 PM NAILING MACHINE FEEDER Height 182.9 cm (6') 11/29/2011 3:20 PM NAILING MACHINE FEEDER Body Mass Index 26.45 11/29/2011 3:20 PM NAILING MACHINE FEEDER documented in this encounter Discharge Instructions * Discharge Instructions* Jelani Brown MD - 11/29/2011 3:25 PM NAILING MACHINE FEEDER Cellulitis Cellulitis is an infection of the [...] sooner if problems arise. ?? Only take [id number] or prescription medicines for pain, discomfort, or [...] Document Re-Released: 10/11/2009 ExitCare?? Patient Information ??2009 Kasenna. ING MACHINE FEEDER documented in this encounter Medications at Time [...] the patient: 11/29/2011 3:19 PM Dashawn Solitario [id number] [facility] EMERGENCY DEPT History Chief Complaint Patient presents [...] hours for 7 days. For 7 days. [facility] [address] [facility] [address] Call in 1 day Discharged to Home This note accurately reflects work and decisions made by me. Written by Pieter Miner, acting as scribe for Dr. Brown ING MACHINE FEEDER documented in this encounter Miscellaneous Notes * Miscellaneous Scans - Document, Scanned - 12/12/2011 9:31 AM CST ING MACHINE FEEDER documented in this encounter Plan of Treatment Not on file documented as of this encounter Procedures Procedure Name Priority Date/Time Associated Diagnosis Comments CULTURE WOUND STAT 11/29/2011 3:25 PM NAILING MACHINE FEEDER documented in this encounter Results * CULTURE WOUND (11/29/2011 3:25 PM NAILING MACHINE FEEDER) Result [facility] Comment: Final GRAM STAIN No organisms seen. CULTURE Light growth Normal skin marjorie LESION SPECIMEN / Unknown 11/29/2011 3:25 PM NAILING MACHINE FEEDER 11/29/2011 3:30 PM NAILING MACHINE FEEDER Narrative Resulting Agency Comment Performed By [facility];[address] [facility] [address] Jelani Brown MD LAB - MICROBIOLOGY ORDERABLES [facility] [address] [place] [address] documented in this encounter Visit Diagnoses Diagnosis Cellulitis and abscess of face documented in this encounter
--- OUTSIDE RECORDS SUMMARY | 2024-11-22 16:12 | XMS_ITS | Clinical Summary ---
Author Organization [facility] Address [address] [place] [address] Care Team Providers Care Casino Enforcement Agent Name Role Phone Pauly Kulkarni Primary [facility] P [facility] Source Comments [facility],non-owned Affiliates and Associated Physician Practices is amultiple site organization consisting of ambulatory clinics and hospital sitesin [place], [place], [place] and [place]. This disclosure is being madepursuant to the Care Everywhere program and may not contain all information available regarding this patient. Last updated 18.[facility] Allergies No known active allergies Medications * [...] Comments Blood Pressure 104/65 01/15/2013 2:28 PM SPRAY MAKER Pulse 76 01/15/2013 2:28 PM SPRAY MAKER Temperature 36.7 ??C (98.1 ??F) 01/15/2013 2:28 PM CS T Respiratory Rate 16 01/15/2013 2:28 PM SPRAY MAKER Oxygen Saturation 97% 01/15/2013 2:28 PM SPRAY MAKER Inhaled Oxygen Concentration - - Weight 99.8 kg (220 lb) 01/13/2013 11:55 AM SPRAY MAKER Height 182.9 cm (6') 01/13/2013 11:55 AM SPRAY MAKER Body Mass Index 29.84 01/13/2013 11:55 AM SPRAY MAKER Plan of Treatment Health Maintenance Due Date [...] 3:00 PM 01/15/2013 4:55 PM Care Teams Casino Enforcement Agent Relationship Specialty Start Date End Date Pauly Kulkarni APRN-RIVKA [address] [place] [address] PCP - General Nurse Practitioner 01/13/13
--- OUTSIDE RECORDS SUMMARY | 2024-11-22 16:12 | XMS_ITS | Encounter Summary ---
Author Organization [facility] Address [facility]. [place], [place] [address] [place] [address] Care Team Providers Care Book Retailer Name Role Phone Ashanti Woo MD Primary Care Provider Encounter Details Date Type Department Care Team [...] st Contact Info) Description 12/09/2024 9:20 AM CREDIT BALANCE SPECIALIST Office Visit [facility] Medical Group Family Medicine - [address], [address] [place] [phone] Yolette VII, Carlos Manzano MD [address] [facility], [address] [address] documented as of this encounter Visit Diagnoses Not on filedocumented in this encounter Care Teams Book Retailer Relationship Specialty Start Date End Date Ashanti Woo MD PCP - General FAMILY PRACTICE 10/17/23 10/02/24 documented as of this encounter
--- OUTSIDE RECORDS SUMMARY | 2024-11-22 16:12 | XMS_ITS | Encounter Summary ---
Author Organization [facility] Address [address] [place] [address]. [place], [place] [address] [place] [address] Care Team Providers Care Allergist/Pediatric Pulmonologist Name Role Phone Mahendra Sinclair MD Primary Care Provider [phone] Reason for Visit * Reason Comments Follow Up Weight management fo llow-up Encounter Details Date Type Department Care Team (Late st Contact Info) Description 10/17/2023 12:40 PM VEGETABLE COOK Office Visit [facility] Medical Group Family Medicine - [place] [address] [facility], [address] [place] [phone] [place] [address] [place] [address] Follow Up (Weight management follow-up ) Social [...] Comments Blood Pressure 120/84 10/17/2023 12:55 PM VEGETABLE COOK Pulse 85 10/17/2023 12:55 PM VEGETABLE COOK Temperature 36.6 ??C (97.9 ??F) 10/17/2023 12:[address] Respiratory Rate 14 10/17/2023 12:55 PM VEGETABLE COOK Oxygen Saturation 96% 10/17/2023 12:55 PM VEGETABLE COOK Inhaled Oxygen Concentration - - Weight 102.1 kg (225 lb) 10/17/2023 12:55 PM VEGETABLE COOK Height - - Body Mass Index 30.52 09/04/2023 2:02 PM CDT documented in this encounter Patient Instructions * Patient Instructions* Mahendra Sinclair MD - 10/17/2023 12:40 PM VEGETABLE COOK Check all labels carefully-work to reduce sugars, [...] mindful of food choices, make healthier choices TABLE COOK TABLE COOK * Attachments The following attachments cannot be sent through Care Everywhere. * The New Food Label (Greenlandic) documented in this encounter Progress Notes * Mahendra Sinclair MD - 10/17/2023 12:40 PM CST Images from the original note were not included. Office Progress Note Encounter Date: 10/17/2023 Reason for Visit: Follow Up (Weight management follow-up ) History of Present Illness: WM f/u Pt has had one month of 15mg phentermine and will pick up attendant his 30mg dose to start today for [...] for a snack. He did look into [employer] maru, he is not using it but did find some of the resources helpful so is using it occasionally. Discussed using the 30mg dose for the next 2-3 mos then decide if we need to transition to shelter med management. ROS: Review of Systems Constitutional: [...] He will keep his ID doc at [facility] but I am happy to take him [...] no discontinued medications. MAHENDRA SINCLAIR MD 10/17/2023 TABLE COOK documented in this encounter Plan of Treatment Upcoming Encounters Date Type Department Care Team (Late st Contact Info) Description 12/09/2024 9:20 AM VEGETABLE COOK Office Visit [facility] Medical Group Family Medicine - [address], [address] [phone] Yolette VII, Carlos Manzano MD [address] [place] [address], [address] [address] documented as of this encounter Visit Diagnoses Diagnosis Class 1 obesity due to excess calories with serious comorbidity and body mass index (BMI) of 30.0 to 30.9 in adult- Primary documented in this encounter Care Teams Allergist/Pediatric Pulmonologist Relationship Specialty Start Date End Date aMhendra Sinclair MD PCP - General FAMILY PRACTICE 10/17/23 10/02/24 documented as of this encounter
--- OUTSIDE RECORDS SUMMARY | 2024-11-22 16:12 | XMS_ITS | Encounter Summary ---
Author Organization [facility] Address [address] [place] [address] Care Team Providers Care Cover Mat Machine Operator Name Role Phone Pauly Kulkarni APRN-ASSOCIATE MATERIAL HANDLER Primary Care P poornima Reason for Visit * Reason Comments Abscess Pt c/o abscess to th e right side of his face. Onset was last week. * Auth/Cert Specialty Diagnoses / Procedures Referred By Contac t Referred To Contact Inpatient Care Diagnoses Abscess [id number] [facility] 5s General Med [address] [place] [address] Referral ID Status Reason Start Date Expiration Date Visits Re quested Visits Authorized [id number] 01/14/2013 07/13/2013 1 Encounter Details Date Type Department Care Team (Late st Contact Info) Description 01/13/2013 12:38 PM BOOT MAKER - 01/15/2013 3:54 PM BOOT MAKER Hospital Encounter DP 5S General Med [address] [place] [id number] Rhonda Tomlinson PA-C [id number] [place] [address] [place] [address] [place]i [place] [address] [facility] [place] [address] [place] [address] [facility] [place] [address] General Medicine Discharge Disposition: Home [...] Comments Blood Pressure 104/65 01/15/2013 2:28 PM BOOT MAKER Pulse 76 01/15/2013 2:28 PM BOOT MAKER Temperature 36.7 ??C (98.1 ??F) 01/15/2013 2:28 PM CS T Respiratory Rate 16 01/15/2013 2:28 PM BOOT MAKER Oxygen Saturation 97% 01/15/2013 2:28 PM BOOT MAKER Inhaled Oxygen Concentration - - Weight 99.8 kg (220 lb) 01/13/2013 11:55 AM BOOT MAKER Height 182.9 cm (6') 01/13/2013 11:55 AM BOOT MAKER Body Mass Index 29.84 01/13/2013 11:55 AM BOOT MAKER documented in this encounter Discharge Summaries * Cherri Anderson MD - 01/15/2013 1:41 PM CST Hospitalist Discharge Summary Dashawn Solitario Primary care physician Pauly Kulkarni Admit date: 01/13/2013 Discharge date: 01/15/2013 Discharge Physician: Cherri Anderson MD Presentation on admission Dashawn Solitario is a 42 y.o. male hx HIV followed at [facility] with undetectable viral for many years and [...] weeks of bactrim per ID recommendation,f/u at [facility]. Patient seen and examined today, vitals and [...] note was faxed to PCP via the [employer] system CC Pauly Kulkarni MAKER documented in this encounter Discharge Instructions * Discharge Instructions* Daisy Radha K - 01/15/2013 1:56 PM BOOT MAKER If you have any questions regarding your [...] a copy of the discharge instructions. 01/15/2013 MAKER * Discharge Instructions* Document, Scanned - 01/16/2013 10:45 AM BOOT MAKER MAKER documented in this encounter Medications at Time [...] for this basename: CDIFFTOXINAB:3 in the last [address] neck with - soft tissue swelling without abscess Bld cx 4 ntd Wound cx chin 5 - SA Assessment 42 y.o. male hx HIV followed at [facility] with undetectable viral for many years and [...] decolonization protocol if this is MRSA. F/U [facility] Bret Medina MD Cell MAKER * Radha Villa - 01/15/2013 1:51 PM CST Per phone call from Dr. Anderson ok with Dr. Medina to d/c pt home MAKER * Radha Villa - 01/15/2013 1:31 PM CST Rounded with Dr. Anderson MAKER * Shae Zaldivar RN - 01/15/2013 6:50 AM CST Uneventful night. Pain medication x1 for the night. Vital signs stable. Shae Zaldivar 01/15/20136:51 AM MAKER * Maryjane Yusuf RN - 01/14/2013 3:47 PM CST Resumed care at 1330. Pt alert and oriented X4. Complains of pain. Medication given for relief. Cultures of wound sent. Tolerating diet. Voiding appropriately. IV infusing. Antibiotics hung. Resting in bed with call light in reach. Pt will continue to be monitored. Maryjane Yusuf RN 01/14/2013 3:48 PM MAKER * Lara Alexander RN - 01/14/2013 1:11 [...] parents. Receives HIV care through [facility]. Independent with adls. Hospitalization within the past 31 days: na DME: none PCP: Dr Kulkarni Follow up appointment: Pt will make own appointment [facility]: aware of service Flu vaccine: fall 2011 Pneumonia vaccine: fall 2011 D/C Plan: home vs NH Transportation at discharge: His car in garage. IV abx Call Lara Alexander R.N. Set Up / Operator at [phone] or pager [phone] with any questions or concerns. MAKER * Cherri Anderson MD - 01/14/2013 12:58 [...] for this basename: TROPONIN:3 in the last 65386 hours Component Name 01/13/13 1339 SODIUM 139 POTASSIUM 3.8 CHLORIDE 104 CO2 25 BUN 9 CREATININE 0.67 GLUCOSE 91 CALCIUM 9.1 Component Name 01/13/13 1339 ALBUMIN 4.3 ALKPHOS 79 ALT 26 AST 19 TBIL 0.4 DBIL -- TPROT 8.7* No results found for this basename: BNP:3 in the last 90129 hours No data found. MEDICATIONS FOR CURRENT [...] injection 4 mg, Intravenous, q4h PRN ?? hwhkmey-djcdth-cwnyc pertussis (BOOSTRIX) injection 0.5 mL, Intramuscular, Once [...] prophylaxis with heparin 5,000 units subcu t.i.d. MAKER * Jodee Barnes RN - 01/14/2013 7:49 AM CST Laborer Tree Tapping Summary: The patient has been in NAD. He has no c/o chest pain, shortness of breath andhis airway remains patent with no c/o difficulty swallowing. He is tolerating his IV antibiotics without c/o itching at this time. MAKER * Maria Del Rosario Casarez RPH - [...] Pharmacist Name: Maria Del Rosario Casarez RPH MAKER documented in this encounter H&P Notes * Debi Yanez MD - 01/13/2013 10:52 PM CST [facility] HISTORY AND PHYSICAL PATIENT: DASHAWN SOLITARIO MR#: [id number] ADMIT DATE: 01/13/2013 CSN: [id number] : 1970 ROOM: [facility] PHYSICIAN: DEBI YANEZ MD CHIEF COMPLAINT: Right [...] may be merited. MD TATE Bourne/ANTHONY #: [id number] MAKER * Debi Yanez MD - 01/13/2013 9:52 [...] tid 6. ID consult 7. Full code MAKER documented in this encounter Consult Notes * Bret Medina MD - 01/14/2013 2:32 PM CSTAssociated Order(s): IP CONSULT TO INFECTIOUS DISEASES ID Consult Note 01/13/2013 Date of Consult: 01/14/2013 Patient's Primary Care Physician: Pauly Kulkarni Reason for Consultation: Facial cellulitis Name: Dashawn Solitario Age: 42 y.o. Chief Complaint/History of Present Illness Dashawn Solitario is a 42 y.o. male hx HIV followed at [facility] with undetectable viral for many years and [...] injection 4 mg, Intravenous, q4h PRN ?? ajpadrl-umdxpt-pebhe pertussis (BOOSTRIX) injection 0.5 mL, Intramuscular, Once [...] for this basename: CDIFFTOXINAB:3 in the last 93715 hours Component Name 01/13/13 1339 WBC 5.5 HGB 13.1 HCT 37.9 PLTCOUNT [address] neck with - soft tissue swelling without abscess Bld cx 4 ntd Assessment 42 y.o. male hx HIV followed at [facility] with undetectable viral for many years and [...] Culture wound ordered Bret Medina MD Cell MAKER documented in this encounter ED Notes * Tanesha Kelly RN - 01/13/2013 4:18 PM CST Transportation called. MAKER * Tanesha Kelly RN - 01/13/2013 4:13 PM CST Report called to Sylvester Rod. Reported Vanc not given in ED, but will be sent up to floor with Pt. Will continue to monitor. MAKER * Frantz Pineda MD - 01/13/2013 1:32 PM CST 1:33 PM For this patient, I reviewed the PARTS ROOM CLERK or PA documentation, procedures (if done), treatment plan, and medical decision making; and I had efys-tz-ozpz time with this patient. 01/13/2013 1:33 PM I have reviewed the information recorded by the scribe and agree with its accuracy and contents--Dr. Pineda Transcribed by Garrett Cintron acting scribe on behalf of Dr. Pineda MAKER * Rhonda Tomlinson PA-C - 01/13/2013 1:16 PM CST attestation needed MAKER * Rhonda Tomlinson PA-C - 01/13/2013 1:11 PM CST Images from the original note were not included. Provider contact with the patient: 01/13/2013 13:10 Dashawn Solitario [id number] [facility] EMERGENCY DEPARTMENT History Chief Complaint Patient presents [...] (*) 44-73 % Lymph 42 20-43 % [place] 9 5-13 % Eos 6 0-6 % Baso 0 0-2 % Immature Grans 0.2 0-1 % Neutro Abs 2.39 Lymph Abs 2.31 1.07-3.94 x10^9/L [place] Abs 0.47 0.26-1.07 x10^9/L Eosin Abs 0.31 [...] ??? acetaminophen (TYLENOL) tablet 650 mg ??? whnkvjx-roapvr-hsiwz pertussis (BOOSTRIX) injection 0.5 mL ??? hydrocodone-acetaminophen [...] mg Clinical Impression Final diagnoses: Abscess (Primary) MAKER * Frantz Pineda MD - 01/13/2013 1:11 PM CST 01/13/2013 15:54 For this patient encounter, I reviewed the PARTS ROOM CLERK or PA documentation, procedures (if done), treatment plan, and medical decision making; and I had srie-bl-yeji time with this patient. MAKER * Frantz Pineda MD - 01/13/2013 1:11 PM CST 01/13/2013 17:08 For this patient encounter, I reviewed the PARTS ROOM CLERK or PA documentation, procedures (if done), treatment plan, and medical decision making; and I had ovjd-wz-dpqq time with this patient. MAKER documented in this encounter Miscellaneous Notes * Miscellaneous Scans - Document, Scanned - 01/16/2013 10:45 AM CST MAKER documented in this encounter Plan of Treatment Not on file documented as of this encounter Procedures Procedure Name Priority Date/Time Associated Diagnosis Comments CULTURE WOUND+GRAM STAIN Routine 01/14/2013 2:42 PM BOOT MAKER CULTURE MRSA STAT 01/14/2013 5:51 AM BOOT MAKER Abscess CT NECK SOFT TISSUE W CONT STAT 01/13/2013 3:06 PM BOOT MAKER Abscess CULTURE BLOOD Timed 01/13/2013 2:27 PM BOOT MAKER CULTURE BLOOD Timed 01/13/2013 1:40 PM BOOT MAKER CBC W AUTO DIFFERENTIAL STAT 01/13/2013 1:39 PM BOOT MAKER COMPREHENSIVE METABOLIC PANEL STAT 01/13/2013 1:39 PM BOOT MAKER documented in this encounter Results * (ABNORMAL) CULTURE WOUND+GRAM STAIN (01/14/2013 2:42 PM BOOT MAKER) Culture Moderate Growth Staphylococcus aureus(A) 01/17/2013 7:02 AM BOOT MAKER [facility] Gram Stain Rare White blood cells 01/17/2013 7:02 AM BOOT MAKER [facility] Gram Stain No organisms seen 013 7:02 AM BOOT MAKER [facility] Miscellaneous samples (specimen) LESION SPECIMEN / Unknown 01/14/2013 2:42 PM BOOT MAKER 01/14/2013 2:55 PM BOOT MAKER Narrative Organism Antibiotic Method Susceptibility Staphylococcus aureus [...] Medina MD LAB - MICROBIOLOGY O RDERABLES [facility] [address] [place] [address], [facility] * CULTURE MRSA (01/14/2013 5:51 AM BOOT MAKER) Culture Negative for MRSA 01/15/2013 2:44 PM BOOT MAKER [facility] Miscellaneous samples (specimen) SPECIMEN FROM NASAL FOSSAE / Unknown 01/14/2013 5:51 AM BOOT MAKER 01/14/2013 6:34 AM BOOT MAKER Debi Yanez MD LAB - MICROBIOLOGY O RDERABLES [facility] [address] [place], [place] [address], [facility] * CT SOFT TISSUE NECK WITH CONTRAST (01/13/2013 3:06 PM BOOT MAKER) Anatomical Region Laterality Modality Head Computed Tomogra phy 01/13/2013 3:13 PM BOOT MAKER Impressions 01/13/2013 3:13 PM BOOT MAKER EXTENSIVE CELLULITIS OVERLYING THE CHIN AND RIGHT HALF OF THE MANDIBLE MULTIFOCAL LYMPHADENOPATHY WHICH IS PRESUMABLY REACTIVE SPHENOID SINUS DISEASE Narrative 01/13/2013 3:[address] neck with intravenous contrast CLINICAL INDICATION: [...] ORDERABLES * CULTURE BLOOD (01/13/2013 2:27 PM BOOT MAKER) Culture No Growth 01/19/2013 6:36 AM T [facility] Blood specimen (specimen) PERIPHERAL BLOOD / Unknown 01/13/2013 2:27 PM BOOT MAKER 01/13/2013 3:21 PM BOOT MAKER Rhonda Tomlinson PA-C LAB - MICROBIOLOGY ORDERABLES Performing Organization Address [facility]/[place] Co de Phone Number [facility] [address] * CULTURE BLOOD (01/13/2013 1:40 PM BOOT MAKER) Culture No Growth 01/19/2013 6:36 AM [facility] Blood specimen (specimen) PERIPHERAL BLOOD / Unknown 01/13/2013 1:40 PM BOOT MAKER 01/13/2013 1:53 PM BOOT MAKER Rhonda Tomlinson PA-C LAB - MICROBIOLOGY ORDERABLES Performing Organization Address [facility] Co de Phone Number [facility] [address] [place] [address] * (ABNORMAL) COMPREHENSIVE METABOLIC PANEL (01/13/2013 1:39 PM BOOT MAKER) Glucose 91 74 - 106 mg/dL 01/13/2013 2:27 PM BOOT MAKER [facility] Sodium 139 136 - 145 mmol/L 01/13/2013 2:27 PM BOOT MAKER [facility] Potassium 3.8 3.5 - 5.1 mmol/L 01/13/2013 2:27 PM BOOT MAKER [facility] Chloride 104 98 - 107 mmol/L 01/13/2013 2:27 PM [facility] CO2 25 22 - 31 mmol/L 01/13/2013 2:27 PM [facility] Calcium 9.1 8.5 - 10.1 mg/dL 01/13/2013 2:27 PM [facility] Anion Gap 10 5 - 15 mmol/L 01/13/2013 2:27 PM [facility] BUN 9 7 - 21 mg/dL 01/13/2013 2:27 PM [facility] Creatinine 0.67 0.50 - 1.30 mg/dL 01/13/2013 2:27 PM [facility] eGFR by MDRD >60 >60 ml/min/1.7 3m2 01/13/2013 2:27 PM [facility] eGFR by MDRD >60 >60 ml/min/1.7 3m2 01/13/2013 2:27 PM [facility] Alkaline Phosphatase 79 38 - 126 U/L 01/13/2013 2:27 PM [facility] ALT 26 12 - 78 U/L 01/13/2013 2:27 PM [facility] AST 19 5 - 40 U/L 01/13/2013 2:27 PM [facility] Protein Total 8.7(H) 6.4 - 8.2 gm/dL 01/13/2013 2:27 PM [facility] Albumin 4.3 3.4 - 5.0 gm/dL 01/13/2013 2:27 PM [facility] Bilirubin Total 0.4 0.2 - 1.0 mg/dL 01/13/2013 2:27 PM [facility] Blood specimen (specimen) BLOOD SPECIMEN / Unknown 01/13/2013 1:39 PM [facility] 01/13/2013 1:53 PM [facility] Rhonda Tomlinson PA-C LAB - CHEMISTRY ORD ERABLES [facility] [address] [place] [address] * (ABNORMAL) CBC W AUTO DIFFERENTIAL (01/13/2013 1:39 PM [facility]) WBC 5.5 4.4 - 10.7 x10^9/L 01/13/2013 2:01 PM [facility] RBC 4.59 3.80 - 5.40 x10^12/L 01/13/2013 2:01 PM [facility] Hemoglobin 13.1 12.0 - 17.6 g/dL 01/13/2013 2:01 PM [facility] Hematocrit 37.9 35.2 - 51.7 % 01/13/2013 2:01 PM [facility] MCV 82.6 80.7 - 98.3 fl 01/13/2013 2:01 PM [facility] MCH 28.5 26.7 - 34.0 pg 01/13/2013 2:01 PM [facility] MCHC 34.6 30.8 - 35.9 gm/dL 01/13/2013 2:01 PM [facility] Platelet Count 232 153 - 416 x10^9/L 01/13/2013 2:01 PM [facility] RDW-CV 13.1 12.1 - 14.9 % 01/13/2013 2:01 PM [facility] Neutrophils % 43(L) 44 - 73 % 01/13/2013 2:01 PM [facility] Lymphocytes % 42 20 - 43 % 01/13/2013 2:01 PM [facility] Monocytes % 9 5 - 13 % 01/13/2013 2:01 PM [facility] Eosinophils % 6 0 - 6 % 01/13/2013 2:01 PM [facility] Basophils % 0 0 - 2 % 01/13/2013 2:01 PM [facility] Immature Granulocytes 0.2 0 - 1 % 01/13/2013 2:01 PM [facility] Neutrophil Absolute 2.39 x10^9/L 01/13/2013 2:01 PM [facility] Lymphocytes Absolute 2.31 1.07 - 3.94 x10^9/L 01/13/2013 2:01 PM [facility] Monocytes Absolute 0.47 0.26 - 1.07 x10^9/L 01/13/2013 2:01 PM [facility] Eosinophils Absolute 0.31 0 - 0.47 x10^9/L 01/13/2013 2:01 PM [facility] Basophils Absolute 0.02 0 - 0.08 x10^9/L 01/13/2013 2:01 PM [facility] Immature Granulocytes Absolute 0.01 0.00 - 0.06 x10^9/L 01/13/2013 2:01 PM BOOT MAKER [facility] nRBC Auto 0 01/13/2013 2:01 PM BOOT MAKER [facility] Blood specimen (specimen) BLOOD SPECIMEN / Unknown 01/13/2013 1:39 PM BOOT MAKER 01/13/2013 1:54 PM BOOT MAKER Rhonda Flash Tomlinson PA-Flash LAB - HEMATOLOGY OR DERABLES Performing Organization Address City/State/[place] Co de Phone Number [facility] [address] [place] [address] documented in this encounter Visit Diagnoses Diagnosis [...] 1655 $ New Bag/Syringe 01/15/2013 2:00 AM BOOT MAKER 75 mL/h r $ New Bag/Syringe 01/14/2013 6:09 AM BOOT MAKER 75 mL/ hr darunavir (PREZISTA) tablet 800 mg 800 mg, Oral, DAILY WITH BREAKFAST, First dose on Sun01/14/13 at 1445, Until Discontinued, Dose with ritonavir Do not crush, chew, or cut in half. $ Given 01/15/2013 8:48 AM BOOT MAKER 800 mg $ Given 01/14/2013 4:41 PM BOOT MAKER 800 mg diphenhydrAMINE (BENADRYL) injection 25 mg 25 mg, Intravenous, EVERY 6 HOURS PRN, Itching, Allergies, Starting on Sun01/13/13 at 2155, Until Sun01/15/13 at 1655, Max intravenous rate = 25 mg/min $ Given 01/14/2013 5:24 PM BOOT MAKER 25 mg $ Given 01/14/2013 6:01 AM BOOT MAKER 25 mg $ Given 01/13/2013 11:04 PM BOOT MAKER 25 mg emtricitabine-tenofovir (TRUVADA) tablet 1 Tab 1 tablet, Oral, DAILY, First dose on Sun01/14/13 at 0900, Until Discontinued $ Given 01/15/2013 8:48 AM BOOT MAKER 1 tablet $ Given 01/14/2013 10:48 AM BOOT MAKER 1 tablet heparin injection 5,000 Units 5,000 Units, Subcutaneous, 2 TIMES DAILY, First dose on Sun01/13/13 at 2215, Until Discontinued $ Given 01/15/2013 8:48 AM BOOT MAKER 5,000 Units Abdominal Tissue $ Given 01/14/2013 8:54 PM BOOT MAKER 5,000 Units A bdominal Tissue $ Given 01/14/2013 9:07 AM BOOT MAKER 5,000 Units A bdominal Tissue hydrocodone-acetaminophen (NORCO) 5-325 MG tablet 1 Tab 1 tablet, Oral, ONCE, 1 dose, On Sun01/13/13 at 1345, Maximum allowable Acetaminophen amount = 4 Grams (4000 mg) / 24 hours. $ Given 01/13/2013 1:32 PM BOOT MAKER 1 tablet hydrocodone-acetaminophen (NORCO) 5-325 MG tablet 1-2 Tab 1-2 tablet, Oral, EVERY 4 HOURS PRN, Moderate Pain, Starting on Sun01/13/13 at 2143, Until Sun01/15/13 at 1655, Maximum allowable Acetaminophen amount = 4 Grams (4000 mg) / 24 hours. $ Given 01/15/2013 8:52 AM BOOT MAKER 2 tablets $ Given 01/14/2013 8:55 PM BOOT MAKER 2 tablets $ Given 01/14/2013 2:40 PM BOOT MAKER 2 tablets iohexol (OMNIPAQUE 350) contrast Intravenous, CONTRAST ONCE, Starting on Sun01/13/13 at 1453, Until Sun01/15/13 at 1452 $ Given 01/13/2013 2:54 PM BOOT MAKER 80 mL Lef t Arm morphine injection 2 mg 2 mg, Intravenous, EVERY 4 HOURS PRN, Pain, Starting on Sun01/13/13 at 2142, Until Sun01/15/13 at 1655, For severe pain (pain scale score of 7-10) $ Given 01/14/2013 6:02 AM BOOT MAKER 2 mg $ Given 01/13/2013 10:51 PM BOOT MAKER 2 mg ondansetron (ZOFRAN) injection 4 mg 4 mg, Intravenous, EVERY 4 HOURS PRN, Nausea/Vomiting, Starting on Sun01/13/13 at 1459, Until Sun01/15/13 at 1655 $ Given 01/15/2013 1:44 PM BOOT MAKER 4 mg $ Given 01/13/2013 11:03 PM BOOT MAKER 4 mg piperacillin - tazobactam (ZOSYN) IVPB 3.375 g 3.375 g, at 200 mL/hr, Intravenous, EVERY 6 HOURS, First dose on Sun01/13/13 at 1415, Until Discontinued $ Given 01/14/2013 2:30 PM BOOT MAKER 3.375 g 200 mL/hr $ Given 01/14/2013 8:11 AM BOOT MAKER 3.375 g 200 mL/hr $ Given 01/14/2013 2:09 AM BOOT MAKER 3.375 g 200 mL/hr ritonavir (NORVIR) tablet 100 mg 100 mg, Oral, DAILY, First dose on Sun01/14/13 at 0900, Until Discontinued, Do not crush, chew, or cut in half. $ Given 01/15/2013 8:48 AM BOOT MAKER 100 mg $ Given 01/14/2013 9:06 AM BOOT MAKER 100 mg vancomycin (VANCOCIN) 1,500 mg in NaCl 0.9 % IVPB 1,500 mg, at 250 mL/hr, Intravenous, EVERY 12 HOURS, First dose (after last reorder) on Sun01/14/13 at 0500, Until Discontinued, Pharmacy to manage dosing regimen Refrigerate $ Given 01/15/2013 6:30 AM BOOT MAKER 1,500 mg 250 mL/hr $ Given 01/14/2013 5:29 PM BOOT MAKER 1,500 mg 250 mL/hr $ Given 01/14/2013 5:54 AM BOOT MAKER 1,500 mg 250 mL/hr vancomycin (VANCOCIN) 2,500 mg in NaCl 0.9 % IVPB 2,500 mg, at 200 mL/hr, Intravenous, ONCE, 1 dose, On Sun01/13/13 at 1500, Refrigerate $ Given 01/13/2013 5:26 PM BOOT MAKER 2,500 mg 200 mL/hr documented in this encounter Active and Recently Administered Medications Times are shown in BOOT MAKER. Scheduled Medication Order 01/13/2013 01/14/2013 01/15/2013 darunavir (PREZISTA) tablet 800 mg 800 mg, Oral, DAILY WITH BREAKFAST, First dose on Sun01/14/13 at 1445, Until Discontinued, Dose with ritonavir Do not crush, chew, or cut in half. 1442 ($ Given - Provider: Maryjane Yusuf RN) 0886 ($ Given - Provider: Radha Villa) emtricitabine-tenofovir [...] 1655 0609 ($ New Bag/Syringe - Provider: Jodee Barnes RN) 0200 ($ New Bag/Syringe - [...] RN) 1344 ($ Given - Provider: Radha Villa) documented in this encounter Care Teams Cover Mat Machine Operator Relationship Specialty Start Date End Date Pauly Kulkarni APRN-ASSOCIATE MATERIAL HANDLER [address] [place] [address] PCP - General Nurse Practitioner 01/13/13 documented as of this encounter
--- OUTSIDE RECORDS SUMMARY | 2024-11-22 16:12 | XMS_ITS | Encounter Summary ---
Author Organization [facility] Address [facility]. [place], [place] [address] [place] [id number] Care Team Providers Care Creative Services Designer Name Role Phone Ashanti Woo MD Primary Care Provider [phone] Encounter Details Date Type Department Care Team [...] st Contact Info) Description 12/09/2024 9:20 AM BLOCK GREASER Office Visit [facility] Family Medicine - [place] [address] [facility], [address] [place] [phone] YoletteCarlos Torres MD [address] [facility], [address] [address] documented as of this encounter Visit Diagnoses Not on filedocumented in this encounter Care Teams Creative Services Designer Relationship Specialty Start Date End Date Ashanti Woo MD PCP - General FAMILY PRACTICE 10/17/23 10/02/24 documented as of this encounter
--- OUTSIDE RECORDS SUMMARY | 2024-11-22 16:12 | XMS_ITS | Encounter Summary ---
Author Organization [facility] Address [facility] [place] [address] [place] [address] Care Team Providers Care Director Of Housing Name Role Phone , Generic Conversion Primary Care Provider Unavailable Antoinette Riley Primary Care Provider [phone] Ashanti Woo MD Primary Care Provider [phone] Carlos Bonilla MD Primary Care Prov ider Encounter Details Date Type Department Care Team (Late st Contact Info) Description 09/15/2017 [place] [address] , Generic Conversion, Social History [...] st Contact Info) Description 12/09/2024 9:20 AM TRAFFIC OR SYSTEM DISPATCHER Office Visit [facility] Family Medicine - [place] [address] [facility], [address] [place] [address] Carlos Bonilla MD [address], [address] [facility], [place] [phone] documented as of this encounter Visit Diagnoses Not on filedocumented in this encounter Care Teams Director Of Housing Relationship Specialty Start Date End Date Rober Christianson MD PCP - General 12/04/15 Antoinette Riley PA [address] DIV IM INFECTIOUS DISEASE, [address] [address] PCP - General PHYSICIAN ELECTROLYSIS NEEDLE OPERATOR 09/04/23 10/16/23 Ashanti Woo MD [address] DIV IM INFECTIOUS DISEASE, [address] [address] PCP - General FAMILY PRACTICE 10/17/23 10/02/24 Yolette Carlos LIVINGSTON MD [address] [place] [id number] PCP - General FAMILY PRACTICE 10/03/24 documented as of this encounter
--- OUTSIDE RECORDS SUMMARY | 2024-11-22 16:12 | XMS_ITS | Encounter Summary ---
Author Organization [facility] Address [address] [place] [address]. [place], [place] [address] [place] [address] Care Team Providers Care Printing Shop Supervisor Name Role Phone Ashanti Woo MD Primary Care Provider [phone] Reason for Visit * Reason Onset Date Comments Medication 05/20/2024 Encounter Details Date Type Department Care Team (Late st Contact Info) Description 05/20/2024 Telephone [facility] Family Medicine - [place] [address] [facility], [address] [place] [phone] [place] [address] [place] [address] Medication Social History Tobacco Use Types Packs/Day [...] sure he has f/u in 8-10 weeks [employer] for coupon. If not covered or too [...] in his weight management scripts now. Pharmacy: [facility] in [place] on [facility]# [phone] documented in this encounter Plan of Treatment Upcoming Encounters Date Type Department Care Team (Late st Contact Info) Description 12/09/2024 9:20 AM OUTSIDE UPHOLSTERER Office Visit [facility] Medical [facility] Family Medicine - [place], [address] [place] [phone] YoletteCarlos Torres MD [facility], [address] [address] documented as of this encounter Visit Diagnoses Diagnosis Class 1 obesity due to excess calories with serious comorbidity and body mass index (BMI) of 32.0 to 32.9 in adult documented in this encounter Care Teams Printing Shop Supervisor Relationship Specialty Start Date End Date Ashanti Woo MD PCP - General FAMILY PRACTICE 10/17/23 10/02/24 documented as of this encounter
--- OUTSIDE RECORDS SUMMARY | 2024-11-22 16:12 | XMS_ITS | Encounter Summary ---
Author Organization [facility] Address Critical access hospital6 [facility] [place] [address] [place] [address] Care Team Providers Care Steak Tenderizer Machine Name Role Phone Rober Christianson MD Primary Care Provider Unavailable Encounter Details Date Type Department Care Team (Late Contact Info) Description 12/04/[address] [facility] [address] [place], [place] [phone] Yudelka Carey, ASSISTANT WOMEN'S ROWING COACH [address] [facility] [address] [place], [place] [phone] Social History Tobacco Use Types Packs/Day Years [...] (Late Contact Info) Description 12/09/2024 9:20 AM PAN HELPER Office Visit [facility] Medical [facility] Family Medicine - [place] [address] [facility], [address] [place] [phone] YoletteCarlos Torres MD [address] [facility] [address] [place], [place] [address] documented as of this encounter Visit Diagnoses Diagnosis Cough documented in this encounter Care Teams Steak Tenderizer Machine Relationship Specialty Start Date End Date Rober Christianson MD PCP - General 12/04/15 documented as of this encounter
--- OUTSIDE RECORDS SUMMARY | 2024-11-22 16:12 | XMS_ITS | Encounter Summary ---
Author Organization [facility] Address [address] [place] [address]. [place], [place] [address] [place] [address] Care Team Providers Care Ceramics Engineer Name Role Phone Carlos Bonilla MD Primary Care Prov ider Reason for Visit * Reason Onset Date Comments Question 10/03/2024 Encounter Details Date Type Department Care Team (Late Contact Info) Description 10/03/2024 Telephone [facility] [address] [facility], [address] [place] [phone] Carlos Bonilla MD [address] [place] [address], [address] [address] Question Social History Tobacco Use [...] st Contact Info) Description 12/09/2024 9:20 AM SHAMPOO TECHNICIAN Office Visit [facility] [address] [facility], [address] [place] [address] Carlos Bonilla MD [address] [place] [phone] documented as of this encounter Visit Diagnoses Not on filedocumented in this encounter Care Teams Ceramics Engineer Relationship Specialty Start Date End Date Carlos Bonilla MD [address] [place] [phone] PCP - General FAMILY PRACTICE 10/03/24 documented as of this encounter
--- OUTSIDE RECORDS SUMMARY | 2024-11-22 16:12 | XMS_ITS | Encounter Summary ---
Author Organization [facility] Address [facility] [facility]. [place], [place] [address] [place] [address] Care Team Providers Care Sand Mill Operator Core Sand Name Role Phone Antoinette Riley Primary Care Provider [phone] Encounter Details Date Type Department Care Team [...] st Contact Info) Description 12/09/2024 9:20 AM WEAVER TIRE CORD Office Visit [facility] Medical [facility] Family Medicine - [place] [address] [facility], [address] [place] [phone] Yolette Carlos LIVINGSTON MD [address] [facility], [facility] 108 [place] [address] documented as of this encounter Visit Diagnoses Not on filedocumented in this encounter Care Teams Sand Mill Operator Core Sand Relationship Specialty Start Date End Date Antoinette Riley PA [address] IM INFECTIOUS DISEASE, [facility] [address] [place] [address] PCP - General PHYSICIAN PEOPLESOFT FSCM DEVELOPER 09/04/23 10/16/23 documented as of this encounter
--- OUTSIDE RECORDS SUMMARY | 2024-11-22 16:12 | XMS_ITS | Encounter Summary ---
Author Organization [facility] Address [address] [place] [address]. [place], [place] [address] [place] [address] Care Team Providers Care Forming Tube Selector Name Role Phone Antoinette Riley Primary Care Provider [phone] Reason for Visit * Reason Comments Follow Up 1st weight managemen t appt. [facility] lab. Encounter Details Date Type Department Care Team (Late st Contact Info) Description 09/04/2023 1:40 PM CDT Office Visit [facility] Medical Group Family Medicine - [place] [address] [facility], [address] [place] [phone] [place] [address] [place] [address] Follow Up (1st weight management appt. [facility] lab. ) Social History Tobacco Use Types [...] at a time -reduce and improve snacking. [employer] snacks and healthline, Caption Data. Heart.org, diabetes.org, [employer] nutrition source are all good sources. Think fruits, veggies and hummus, cheese sticks, almonds, walnuts, low sugar ivorian yogurt, low fat cottage cheese etc To [...] see ifwe need to transition to a group home med. Call me after this appt and we can start the med then Consider using the [employer] maru, or [facility] should have a free maru called real Appeal to help with makinglifestyle changes, daily support/accountability and teaching residential healthier habits. * Attachments The following attachments cannot be sent through Care Everywhere. * Weight Loss Tips (Nauruan) documented in this encounter Progress Notes * Dorie Ness MA - 09/04/2023 1:40 PM CDT 1. Are you allergic to eggs, chicken or chicken feathers? No 2. Do you currently have an illness or fever? No 3. Have you ever had an allergic reaction to the influenza vaccine? No 4. Do you have Guillain-Easley Syndrome? No Flu vaccine administered in Left [...] Visit: Follow Up (1st weight management appt. [facility] lab. ) History of Present Illness: Pt [...] been on HAART for about two years Te-daqszuwumzn-qgx, HIV (undetectable), JUSTO meds contraindicated-no htn, no [...] adult 2. Need for immunization against influenza [29948] FLU VACC QUAD 6 MONTHS+ 0.5 ML [...] help with stress/emotional eating, or see if [facility] still has their free maru real appeal [...] healthier snack options (see AVS) -handout on [employer] healthy eating plate given as well, with [...] hiv associated lipodystrophy. Advised him that typically [facility] does not pay for glp1 so that leaves us phentermine/qsymia/contrve/plenity -since his weight gain was recent and he was healthier weight prior/has not struggled for a long time with weight, feel it is reasonable to start with phentermine as he may not need middle or intermediate school principal wt management med, but could try this for 3 mos along with lifestyle changes and see where we end up. If not at goal weight then or if wt gain recurs, could then transition to another of the group home wt management meds as above -he [...] the day of the encounter. This includes xgja-db-nibd and gzw-mrea-wk-face time I provided on the day of the encounter & excludes time spent performing separately reportable services. Orders Placed This Encounter [38268] FLU VACC QUAD 6 MONTHS+ 0.5 ML (SINGLE DOSE SYRINGE FLUZONE, FLUARIX, FLULAVAL OR SINGLE DOSE VIAL FLUZONE) atorvastatin (LIPITOR) 10 MG tablet There are no discontinued medications. MAHENDRA SINCLAIR MD 09/04/2023 documented in this encounter Plan of Treatment Upcoming Encounters Date Type Department Care Team (Late st Contact Info) Description 12/09/2024 9:20 AM RESISTANCE WELDING MACHINE OPERATOR Office Visit [facility] Medical Group Family Medicine - [address], [address] [place] [phone] Yolette VII, Carlos Manzano MD [address] [place] [address], [address] [address] documented as of this encounter Visit Diagnoses [...] 10/26/2010 documented in this encounter Care Teams Forming Tube Selector Relationship Specialty Start Date End Date Antoinette Riley PA [address] IM INFECTIOUS DISEASE, [facility] [address] [place] [address] PCP - General PHYSICIAN MOLD SHAKER 09/04/23 10/16/23 documented as of this encounter
--- OUTSIDE RECORDS SUMMARY | 2024-11-22 16:12 | XMS_ITS | Encounter Summary ---
Author Organization [facility] Address [address] [place] [address]. [place], [place] [address] [place] [address] Care Team Providers Care Technology Adoption Manager Name Role Phone Mahendra Sinclair MD Primary Care Provider [phone] Reason for Visit * Reason Comments Follow Up Wm f/u. [facility] Encounter Details Date Type Department Care Team (Late st Contact Info) Description 04/21/2024 9:40 AM CDT Office Visit [facility] Family Medicine [facility] [address] [facility], [address] [place] [phone] [place] [address] [place] [address] Follow Up (Wm f/u. [facility] lab) Social [...] everywhere-my note and under anesthesia note for [facility]). He may want pulm clearance from Dr Colon Let me know when you have recovered from surgery and we can start combo of low dose phentermine andtopamax (approximates the fda approved weight loss drug qsymia) for half-way weight management Continue to eat healthier diet, [...] surgery for terrell. He went to - ([facility]) a couple days ago for epigastric pain, had CTand then had US. Had gallstones so is seeing a surgeon on Sunday, someone at [facility]. He has disc of US and CT. [...] of low dose phentermine and topamax for half-way mangement FH prostate CA -due for PSA [...] st Contact Info) Description 12/09/2024 9:20 AM BOTTOM SAW OPERATOR Office Visit [facility] Medical [facility] Family Medicine - [address], [address] [place] [phone] Yolette VII, Carlos Manzano MD [address] [place] [address], [address] [address] Scheduled Orders Name Type Priority Associated Diagnoses [...] unspecified documented in this encounter Care Teams Technology Adoption Manager Relationship Specialty Start Date End Date Mahendra Sinclair MD PCP - General FAMILY PRACTICE 10/17/23 10/02/24 documented as of this encounter
--- OUTSIDE RECORDS SUMMARY | 2024-11-22 16:12 | XMS_ITS | Encounter Summary ---
Author Organization [facility] Address [address] [place] [address]. [place], [place] [address] [place] [address] Care Team Providers Care Sewer Contractor Name Role Phone Antoinette Riley Primary Care Provider [phone] Reason for Visit * Reason Onset Date Comments Problem 09/14/2023 Encounter Details Date Type Department Care Team (Late st Contact Info) Description 09/14/2023 Telephone [facility] Medical Group Family Medicine - [place] [address], [address] [place] [address] [place] [address] [place] [address] Problem Social History Tobacco Use Types Packs/Day [...] would like it to go to the [facility] on [facility] in [place]. He asked if I could call him [...] st Contact Info) Description 12/09/2024 9:20 AM SHOE TRIMMER Office Visit [facility] Medical Group Family Medicine - [address], [address] [place] [phone] Yolette VII, Carlos Manzano MD [address] [place] [address], [address] [address] documented as of this encounter Visit Diagnoses Not on filedocumented in this encounter Care Teams Sewer Contractor Relationship Specialty Start Date End Date Antoinette Riley PA [address] IM INFECTIOUS DISEASE, [address] [address] PCP - General PHYSICIAN UTILITY INSPECTOR 09/04/23 10/16/23 documented as of this encounter
--- OUTSIDE RECORDS SUMMARY | 2024-11-22 16:12 | XMS_ITS | Patient Health Summary ---
Author Organization [facility] Address [address] [place] [address] Care Team Providers Care Veneer Sander Name Role Phone Pauly Kulkarni [facility] Note from [facility],non-owned Affiliates and Associated Physician Practices is amultiple site organization consisting of ambulatory clinics and hospital sitesin [place], [place], [place] and [place]. This disclosure is being madepursuant to the Care Everywhere program and may not contain all information available regarding this patient. Last updated 18.[facility] Allergies No known active allergies Medications * [...] Comments Blood Pressure 104/65 01/15/2013 2:28 PM TRAFFIC WAREHOUSE SUPERVISOR Pulse 76 01/15/2013 2:28 PM TRAFFIC WAREHOUSE SUPERVISOR Temperature 36.7 ??C (98.1 ??F) 01/15/2013 2:28 PM CS T Respiratory Rate 16 01/15/2013 2:28 PM TRAFFIC WAREHOUSE SUPERVISOR Oxygen Saturation 97% 01/15/2013 2:28 PM TRAFFIC WAREHOUSE SUPERVISOR Inhaled Oxygen Concentration - - Weight 99.8 kg (220 lb) 01/13/2013 11:55 AM TRAFFIC WAREHOUSE SUPERVISOR Height 182.9 cm (6') 01/13/2013 11:55 AM TRAFFIC WAREHOUSE SUPERVISOR Body Mass Index 29.84 01/13/2013 11:55 AM TRAFFIC WAREHOUSE SUPERVISOR Procedures * CULTURE WOUND+GRAM STAIN(Performed 01/14/2013) * CULTURE MRSA(Performed 01/14/2013) Performed for Abscess * CT NECK SOFT TISSUE W CONT(Performed 01/13/2013) Performed for Abscess * CULTURE BLOOD(Performed 01/13/2013) * CULTURE BLOOD(Performed 01/13/2013) * COMPREHENSIVE METABOLIC PANEL(Performed 01/13/2013) * CBC W AUTO DIFFERENTIAL(Performed 01/13/2013) * CULTURE WOUND(Performed 11/29/2011) Results * (ABNORMAL) CULTURE WOUND+GRAM STAIN (01/14/2013 2:42 PM TRAFFIC WAREHOUSE SUPERVISOR) Culture Moderate Growth Staphylococcus aureus(A) 01/17/2013 7:02 AM [facility] Gram Stain Rare White blood cells 01/17/2013 7:02 AM [facility] Gram Stain No organisms seen 013 7:02 AM [facility] Miscellaneous samples (specimen) LESION SPECIMEN / Unknown 01/14/2013 2:42 PM TRAFFIC WAREHOUSE SUPERVISOR 01/14/2013 2:55 PM TRAFFIC WAREHOUSE SUPERVISOR Narrative Organism Antibiotic Method Susceptibility Staphylococcus aureus [...] - MICROBIOLOGY O RDERABLES Performing Organization Address [facility] Co de Phone Number [facility] [address] * CULTURE MRSA (01/14/2013 5:51 AM TRAFFIC WAREHOUSE SUPERVISOR) [facility] Culture Negative for MRSA 01/15/2013 2:44 PM TRAFFIC WAREHOUSE SUPERVISOR [facility] Miscellaneous samples (specimen) SPECIMEN FROM NASAL FOSSAE / Unknown 01/14/2013 5:51 AM TRAFFIC WAREHOUSE SUPERVISOR 01/14/2013 6:34 AM TRAFFIC WAREHOUSE SUPERVISOR Sandra Yanez MD LAB - MICROBIOLOGY O ALEX Performing Organization Address [facility] Co de Phone Number [facility] [address] [facility] [address] * CT SOFT TISSUE NECK WITH CONTRAST (01/13/2013 3:06 PM TRAFFIC WAREHOUSE SUPERVISOR) Anatomical Region Laterality Modality Head Computed Tomogra phy 01/13/2013 3:13 PM TRAFFIC WAREHOUSE SUPERVISOR Impressions 01/13/2013 3:13 PM TRAFFIC WAREHOUSE SUPERVISOR EXTENSIVE CELLULITIS OVERLYING THE CHIN AND RIGHT HALF OF THE MANDIBLE MULTIFOCAL LYMPHADENOPATHY WHICH IS PRESUMABLY REACTIVE SPHENOID SINUS DISEASE Narrative 01/13/2013 3:13 PM TRAFFIC WAREHOUSE SUPERVISOR CT neck with intravenous contrast CLINICAL INDICATION: [...] ORDERABLES * CULTURE BLOOD (01/13/2013 2:27 PM TRAFFIC WAREHOUSE SUPERVISOR) Only the most recent of2 resultswithin the time period is included. Culture No Growth 01/19/2013 6:36 AM CDT [facility] Blood specimen (specimen) PERIPHERAL BLOOD / Unknown 01/13/2013 2:27 PM TRAFFIC WAREHOUSE SUPERVISOR 01/13/2013 3:21 PM TRAFFIC WAREHOUSE SUPERVISOR Rhonda Guerreroi PA-C LAB - MICROBIOLOGY ORDERABLES [facility] [address] [place] [address], [facility] * (ABNORMAL) CBC W AUTO DIFFERENTIAL (01/13/2013 1:39 PM TRAFFIC WAREHOUSE SUPERVISOR) [facility] WBC 5.5 4.4 - 10.7 x10^9/L 01/13/2013 2:01 PM [facility] RBC 4.59 3.80 - 5.40 x10^12/L 01/13/2013 2:01 PM [facility] Hemoglobin 13.1 12.0 - 17.6 g/dL 01/13/2013 2:01 PM [facility] Hematocrit 37.9 35.2 - 51.7 % 01/13/2013 2:01 PM [facility] MCV 82.6 80.7 - 98.3 fl 01/13/2013 2:01 PM [facility] MCH 28.5 26.7 - 34.0 pg 01/13/2013 2:01 PM [facility] MCHC 34.6 30.8 - 35.9 gm/dL 01/13/2013 2:01 PM [facility] Platelet Count 232 153 - 416 x10^9/L 01/13/2013 2:01 PM [facility] RDW-CV 13.1 12.1 - 14.9 % 01/13/2013 2:01 PM [facility] Neutrophils % 43(L) 44 - 73 % 01/13/2013 2:01 PM [facility] Lymphocytes % 42 20 - 43 % 01/13/2013 2:01 PM [facility] Monocytes % 9 5 - 13 % 01/13/2013 2:01 PM [facility] Eosinophils % 6 0 - 6 % 01/13/2013 2:01 PM [facility] Basophils % 0 0 - 2 % 01/13/2013 2:01 PM [facility] Immature Granulocytes 0.2 0 - 1 % 01/13/2013 2:01 PM [facility] Neutrophil Absolute 2.39 x10^9/L 01/13/2013 2:01 PM [facility] Lymphocytes Absolute 2.31 1.07 - 3.94 x10^9/L 01/13/2013 2:01 PM [facility] Monocytes Absolute 0.47 0.26 - 1.07 x10^9/L 01/13/2013 2:01 PM [facility] Eosinophils Absolute 0.31 0 - 0.47 x10^9/L 01/13/2013 2:01 PM [facility] Basophils Absolute 0.02 0 - 0.08 x10^9/L 01/13/2013 2:01 PM [facility] Immature Granulocytes Absolute 0.01 0.00 - 0.06 x10^9/L 01/13/2013 2:01 PM [facility] nRBC Auto 0 01/13/2013 2:01 PM [facility] Blood specimen (specimen) BLOOD SPECIMEN / Unknown 01/13/2013 1:39 PM TRAFFIC WAREHOUSE SUPERVISOR 01/13/2013 1:54 PM TRAFFIC WAREHOUSE SUPERVISOR Rhonda Tomlinson PA-C LAB - HEMATOLOGY OR DERABLES [facility] [address] [place] [address] * (ABNORMAL) COMPREHENSIVE METABOLIC PANEL (01/13/2013 1:39 PM TRAFFIC WAREHOUSE SUPERVISOR) Glucose 91 74 - 106 mg/dL 01/13/2013 2:27 PM [facility] Sodium 139 136 - 145 mmol/L 01/13/2013 2:27 PM [facility] Potassium 3.8 3.5 - 5.1 mmol/L 01/13/2013 2:27 PM [facility] Chloride 104 98 - 107 mmol/L 01/13/2013 2:27 PM [facility] CO2 25 22 - 31 mmol/L 01/13/2013 2:27 PM [facility] Calcium 9.1 8.5 - 10.1 mg/dL 01/13/2013 2:27 PM [facility] Anion Gap 10 5 - 15 mmol/L 01/13/2013 2:27 PM [facility] BUN 9 7 - 21 mg/dL 01/13/2013 2:27 PM [facility] Creatinine 0.67 0.50 - 1.30 mg/dL 01/13/2013 2:27 PM [facility] eGFR by MDRD >60 >60 ml/min/1.7 3m2 01/13/2013 2:27 PM [facility] eGFR by MDRD >60 >60 ml/min/1.7 3m2 01/13/2013 2:27 PM [facility] Alkaline Phosphatase 79 38 - 126 U/L 01/13/2013 2:27 PM [facility] ALT 26 12 - 78 U/L 01/13/2013 2:27 PM TRAFFIC WAREHOUSE SUPERVISOR [facility] AST 19 5 - 40 U/L 01/13/2013 2:27 PM TRAFFIC WAREHOUSE SUPERVISOR [facility] Protein Total 8.7(H) 6.4 - 8.2 gm/dL 01/13/2013 2:27 PM TRAFFIC WAREHOUSE SUPERVISOR [facility] Albumin 4.3 3.4 - 5.0 gm/dL 01/13/2013 2:27 PM TRAFFIC WAREHOUSE SUPERVISOR [facility] Bilirubin Total 0.4 0.2 - 1.0 mg/dL 01/13/2013 2:27 PM TRAFFIC WAREHOUSE SUPERVISOR [facility] Blood specimen (specimen) BLOOD SPECIMEN / Unknown 01/13/2013 1:39 PM TRAFFIC WAREHOUSE SUPERVISOR 01/13/2013 1:53 PM TRAFFIC WAREHOUSE SUPERVISOR Rhonda Tomlinson PA-C LAB - CHEMISTRY ORD ERABLES Performing Organization Address [facility] Co de Phone Number [facility] [address] [place] [address] * CULTURE WOUND (11/29/2011 3:25 PM TRAFFIC WAREHOUSE SUPERVISOR) Result [facility] Comment: Final GRAM STAIN No organisms seen. CULTURE Light growth Normal skin marjorie LESION SPECIMEN / Unknown 11/29/2011 3:25 PM TRAFFIC WAREHOUSE SUPERVISOR 11/29/2011 3:30 PM TRAFFIC WAREHOUSE SUPERVISOR Narrative Resulting Agency Comment Performed By [facility];[address] [place] [address];[place] [address] Jelani Brown MD LAB - MICROBIOLOGY ORDERABLES Performing Organization Address City/[facility] Co de Phone Number [facility] [address] [place] [address] Care Teams Veneer Sander Relationship Specialty Start Date End Date Pauly Kulkarni, REGISTERED APPRAISER-ELECTRICAL CONTRACTOR [address] [place] [address] PCP - General Nurse Practitioner 01/13/13
--- OUTSIDE RECORDS SUMMARY | 2024-11-22 16:12 | XMS_ITS | Referral Summary ---
Author Organization [facility] Address [address] [place] [address] Care Team Providers Care Photography Coordinator Name Role Phone Pauly Kulkarni Primary Care P [facility] Source Comments [facility],non-owned Affiliates and Associated Physician Practices is amultiple site organization consisting of ambulatory clinics and hospital sitesin [place], [place], [place] and [place]. This disclosure is being madepursuant to the Care Everywhere program and may not contain all information available regarding this patient. Last updated 18.[facility] Glycode Allergies No known active allergies Medications * [...] Comments Blood Pressure 104/65 01/15/2013 2:28 PM AUTOMATIC TIRE TESTER Pulse 76 01/15/2013 2:28 PM AUTOMATIC TIRE TESTER Temperature 36.7 ??C (98.1 ??F) 01/15/2013 2:28 PM CS T Respiratory Rate 16 01/15/2013 2:28 PM AUTOMATIC TIRE TESTER Oxygen Saturation 97% 01/15/2013 2:28 PM AUTOMATIC TIRE TESTER Inhaled Oxygen Concentration - - Weight 99.8 kg (220 lb) 01/13/2013 11:55 AM AUTOMATIC TIRE TESTER Height 182.9 cm (6') 01/13/2013 11:55 AM AUTOMATIC TIRE TESTER Body Mass Index 29.84 01/13/2013 11:55 AM AUTOMATIC TIRE TESTER Plan of Treatment Not on file Advance Directives * FULL RESUSCITATION (Latest Code Status on File) Date Activated Date Inactivated Comments 01/13/2013 3:00 PM 01/15/2013 4:55 PM Care Teams Photography Coordinator Relationship Specialty Start Date End Date Pauly Kulkarni, HONING MACHINE OPERATOR-MANAGER REQUIREMENTS [address] [place] [address] PCP - General Nurse Practitioner 01/13/13
--- OUTSIDE RECORDS SUMMARY | 2024-11-22 16:12 | XMS_ITS | Encounter Summary ---
Author Organization [facility] Address [address] [place] [address]. [place], [place] [address] [place] [address] Care Team Providers Care Master Craftsman Name Role Phone Antoinette Riley Primary Care Provider [phone] Encounter Details Date Type Department Care Team (Late st Contact Info) Description 09/14/2023 Orders Only [facility] [address] [facility], [address] [place] [address] [place] [address] [place] [address] Social History Tobacco Use Types Packs/Day Years [...] st Contact Info) Description 12/09/2024 9:20 AM ASSOCIATE FINANCIAL ANALYST Office Visit [facility] [address] [facility], [address] [place] [address] Yolette VII, Carlos Manzano MD [address] [facility] [address] [place] [address] documented as of this encounter Visit Diagnoses Diagnosis Class 1 obesity due to excess calories with serious comorbidity and body mass index (BMI) of 32.0 to 32.9 in adult- Primary documented in this encounter Care Teams Master Craftsman Relationship Specialty Start Date End Date Antoinette Riley PA [address] [facility] IM INFECTIOUS DISEASE, [facility] [address] [place] [address] PCP - General PHYSICIAN SHOWCASE TRIMMER 09/04/23 10/16/23 documented as of this encounter
--- OUTSIDE RECORDS SUMMARY | 2024-11-22 16:12 | XMS_ITS | Clinical Summary ---
Author Organization [facility] Address [address] [place] [address]. [place], [place] [address] [place] [address] Care Team Providers Care Neurosurgeon Name Role Phone Carlos Bonilla MD Primary [...] Plan: Routine lab monitoring on termite control servicer HIV meds to assess for drug toxicity and efficacy. HIV infection ([facility]) 04/16/2018 Overview (09/04/2023): Last Assessment [...] Type Department Care Team Description 10/03/2024 Telephone [facility] [address], [address] [place] [address] Ashanti Woo MD Question 10/03/[address] [facility] [address] [facility], [address] [place] [phone] Yolette VII, Carlos Manzano MD Question from [...] st Contact Info) Description 12/09/2024 9:20 AM HOME HEALTH PROVIDER Office Visit [facility] Family Medicine - [address], [address] [place] [phone] Yolette VII, Carlos Manzano MD [address] [facility], [place] [address] [place] [address] Health Maintenance Due Date Last Done [...] patient's age to complete this topic Insurance [facility] Care Teams Neurosurgeon Relationship Specialty Start Date End Date Yolette VII, Carlos Manzano MD [address] [place] [address] PCP - General FAMILY PRACTICE 10/03/24
--- OUTSIDE RECORDS SUMMARY | 2024-11-22 16:12 | XMS_ITS | Encounter Summary ---
Author Organization [facility] Address [address] [place] [address]. [place], [place] [address] [place] [address] Care Team Providers Care Academic Program Specialist Name Role Phone Mahendra Sinclair MD Primary Care Provider [phone] Reason for Visit * Reason Onset Date Comments Refill Request 02/05/2024 Encounter Details Date Type Department Care Team (Late st Contact Info) Description 02/05/2024 Telephone [facility] Family Medicine - [place] [address] [facility], [address] [place] [phone] [place] [address] [place] [address] Refill Request Social History Tobacco Use Types [...] strength: Phentermine HCI 30 MG cap Pharmacy: [facility] Call back #: [phone] Last office visit at this office: Last visit with MAHENDRA SINCLAIR in FAMILY PRACTICE was on: 10/17/2023 in [facility] Future appointment scheduled: Future Appointments Date Time Provider Department Center 03/14/2024 1:00 PM Mahendra Sinclair MD [id number] documented in this encounter Plan of Treatment Upcoming Encounters Date Type Department Care Team (Late st Contact Info) Description 12/09/2024 9:20 AM VICE PROVOST Office Visit [facility] Family Medicine - [address], [address] [place] [phone] Yolette VII, Carlos Manzano MD [address] [place] [address], [place] [address] [place] [address] documented as of this encounter Visit Diagnoses Diagnosis Class 1 obesity due to excess calories with serious comorbidity and body mass index (BMI) of 32.0 to 32.9 in adult documented in this encounter Care Teams Academic Program Specialist Relationship Specialty Start Date End Date Mahendra Sinclair MD PCP - General FAMILY PRACTICE 10/17/23 10/02/24 documented as of this encounter
--- OUTSIDE RECORDS SUMMARY | 2024-11-22 16:13 | XMS_ITS | Clinical Summary ---
Author Organization [facility] Address [address] [place] [address] Care Team Providers Care Person Investigator Name Role Phone Antoinette Riley Primary Care Provider [phone] Allergies No known active allergies Medications flunisolide [...] 07/05/2018 Assessment & Plan (09/28/2023 9:02 AM SUGAR SAMPLER): Routine lab monitoring on superintendent container terminal HIV meds to assess for drug toxicity and efficacy. Given recent discontinuation of treatment, will check genotype. Assessment & Plan (02/04/2023 9:42 AM CDT): Routine lab monitoring on superintendent container terminal HIV meds to assess for drug toxicity and efficacy. Assessment & Plan (07/15/2022 6:03 PM CDT): Routine lab monitoring on superintendent container terminal HIV meds to assess for drug toxicity and efficacy. Assessment & Plan (10/06/2021 8:04 PM SUGAR SAMPLER): Routine lab monitoring on detention HIV meds to assess for drug toxicity and efficacy. Assessment & Plan (07/15/2021 2:23 PM CDT): Routine lab monitoring on detention HIV meds to assess for drug toxicity and efficacy. Assessment & Plan (12/15/2020 10:20 AM SUGAR SAMPLER): Will check VL today prior to re-initiation of cART. Will recheck VL iin 6-8 weeks on cART. Assessment & Plan (04/14/2020 11:17 AM CDT): Routine lab monitoring on detention HIV meds to assess for drug toxicity and efficacy. Assessment & Plan (10/28/2019 2:22 PM SUGAR SAMPLER): Routine lab monitoring on detention HIV meds to assess for drug toxicity and efficacy. Absolute anemia 07/05/2018 HIV infection 04/16/2018 Assessment & Plan (09/28/2023 9:01 AM SUGAR SAMPLER): Symtuza is now a plan exclusion. Will [...] provided. Assessment & Plan (10/06/2021 8:04 PM SUGAR SAMPLER): Continue Symtuza and Tivicay 100% adherence encouraged to maintain viral suppression and prevent resistance. Undetectable = untransmittable. Counseling for risk reduction, adherence and pre-conception provided. Assessment & Plan (07/15/2021 2:23 PM CDT): Continue Symtuza/Tivicay 100% adherence encouraged to maintain viral suppression and prevent resistance. Undetectable = untransmittable. Counseling for risk reduction, adherence and pre-conception provided. Assessment & Plan (12/15/2020 9:54 AM SUGAR SAMPLER): Stop Genvoya and Prezcobix. Start Symtuza and Tivicay - pills are somewhat smaller and Tivicay is a more potent integrase inhibitor than elvitegravir. 100% adherence encouraged to maintain viral suppression and prevent resistance. Undetectable = untransmittable. Risk reduction counseling and adherence counseling provided. RTC 6 weeks to check on adherence, tolerance, and viral load. Assessment & Plan (11/18/2020 9:10 AM SUGAR SAMPLER): Continue Genvoya/Prezista with 100% adherence encouraged to maintain viral suppression and prevent resistance. Undetectable = untransmittable. Risk reduction counseling and adherence counseling provided. Assessment & Plan (04/14/2020 11:17 AM CDT): Continue Genvoya/Prezista with 100% adherence encouraged to maintain viral suppression and prevent resistance. Undetectable = untransmittable. Risk reduction counseling and adherence counseling provided. 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 Gender Identity Not on file Sexual Orientation [...] Routine 06/28/2021 11:26 AM CDT Polyuria BLOOD CMLOBOG-9-WEVEQWUJW DEHYDROGENASE (G6PD) Routine 08/16/2016 5:15 AM CDT HLA B*5701 TYPING Routine 11/25/2013 4:2 3 PM SUGAR SAMPLER from Last 3 Months or Most Recently Relevant to Health Maintenance Results * T-SPOT.TB Blood (09/14/2023 10:05 AM CDT) [facility] T-SPOT.TB Negative [facility] Comment: Normal Value: Negative A negative test [...] T-SPOT.TB Panel A Spot Count 0 [facility] T-SPOT.TB Panel B Spot Count 0 [facility] T-SPOT.TB Negative Control Passed [facility] T-SPOT.TB Positive Control Passed [facility] Comment: Test Performed at: [employer] [place], [place] ??[address] ? CONOR WALL MD,PHD Blood 09/14/2023 10:0 5 AM CDT 09/14/2023 3:13 PM CDT Antoinette GANNON LAB MICROBIOLOGY - GENERAL ORDERABLES Final Result Performing Organization Address City/[facility]/ZIP Co de Phone Number [facility] Department [place] [employer] [place] [address] * Hepatitis C antibody Blood (09/14/2023 10:05 AM CDT) Pathologist [facility] Hep C Ab Nonreactive Nonreactive [facility] Comment:Antibodies to HCV no t detected. Does NOT exclude the possibility of recent exposure to HCV. Current interpretive data was last revised on 22 Blood 09/14/2023 10:0 5 AM CDT 09/14/2023 11:33 AM CDT Antoinette GANNON LAB MICROBIOLOGY - GENERAL ORDERABLES Final Result [facility] Department [place] [employer] [place] [address] * RPR Blood (09/14/2023 10:05 AM CDT) Pathologist [facility] RPR Nonreactive Nonreactive [facility] Blood 09/14/2023 10:0 5 AM CDT 09/14/2023 11:33 AM CDT Antoinette GANNON LAB MICROBIOLOGY - GENERAL ORDERABLES Final Result Performing Organization Address [facility] Co de Phone Number [facility] Department [place] [address] * (ABNORMAL) Hemoglobin A1c (09/14/2023 10:05 AM CDT) Hgb A1C 5.9(H) 4.0 - 5.6 % [facility] Estimated Average Glucose 123 mg/dL [facility] Comment: The ADA recommends reporting an [...] BLOOD ORDERABLES Final Result Performing Organization Address [facility] Co de Phone Number [facility] Department [place] [address] * (ABNORMAL) Lipid panel (09/14/2023 10:05 AM CDT) Cholesterol 205(H) 30 - 199 mg/dL [facility] Comment: Interpretive Data Ages < or [...] on 2018. Triglycerides 122 <=149 mg/dL [facility] Comment: Interpretive Data Ages < or [...] on 2018. HDL 41 >=40 mg/dL [facility] Comment: Interpretive Data Ages < or [...] on 2018. LDL, calculated 140(H) <=129 mg/dL [facility] Comment: Interpretive Data Ages < or = [...] on 2018. Non-HDL Cholesterol 164 mg/dL [facility] Comment: Interpretive Data Ages < or [...] last revised on 2018. Chol/HDL ratio 5 [facility] Blood 09/14/2023 10:0 5 AM CDT 09/14/2023 11:33 AM CDT Antoinette GANNON LAB BLOOD ORDERABLES Final Result [facility] Department [place] [address] * COLONOSCOPY (01/24/2022 2:27 PM CDT) Anatomical Region Laterality Modality Other Narrative Procedure Note Richard Juarez MD - 01/24/2022 2:27 PM CDT [facility] ENDOS[facility] Patient Name: Dashawn Solitario Procedure Date: 01/24/2022 2:27 PM Date of : 1970 Admit Type: Outpatient Age: 51 Gender: Male Attending MD: Richard Juarez M.D. Room: [facility] ENDOSCOPY ROOM 3 Note Status: Finalized [...] scope was passed under direct vision.The CF [id number] endoscope was introduced through the anus and advanced to the cecum, identified by appendiceal orifice and ileocecal valve. The colonoscopy was performed without difficulty. The patient tolerated the procedure well. The qualityof the bowel preparation was good. The quality of the bowel preparation was evaluated using the BBPS([place] Bowel Preparation Scale) with scores of: RightColon [...] On: 01/24/2022 2:27 PM Recognized by the [employer] for promoting quality in endoscopy us Richard Juarez MD ENDOSCOPY PROCEDURES Fin al Result * (ABNORMAL) Urinalysis with reflex for neutropenic patient Urine (06/28/2021 11:26 AM CDT) Color, ur Yellow Yellow [facility] Clarity, ur Clear Clear [facility] Specific gravity, ur 1.018 1.010 - 1.025 [facility] pH, urine 5 [facility] Protein, ur ql Negative Negative [facility] Glucose, ur ql Negative Negative [facility] Ketones, ur Negative Negative [facility] Bilirubin, ur Negative Negative [facility] Blood, ur 1+(A) Negative [facility] Urobilinogen, ur <2.0 <2.0 mg/dL [facility] Nitrite, ur Negative Negative [facility] Leukocyte esterase, ur Negative Negative [facility] Urine 06/28/2021 11:2 6 AM CDT 06/28/2021 3:31 PM CDT Narrative [facility] - 06/28/2021 3:43 PM CDT ?? Urine pH is affected by diet, medications, systemic acid-base disturbances, and renal tubular function. ??pH may affect urinary stone formation. ??For example, urine pH below 6.0 may help reduce the tendency for calcium phosphate stones and pH greater than 6.0 may reduce the tendency for uric acid stone formation. Source: [employer] Last revised 11-22-2017 Antoinette GANNON LAB MICROBIOLOGY - GENERAL ORDERABLES Final Result Performing Organization Address City/State/[facility] Co de Phone Number [facility] Department [place] [address] * PSA screen (06/28/2021 11:26 AM CDT) PSA-Total 0.80 <=3.90 ng/mL [facility] Comment: Interpretive Data ?AGE ? SEX [...] BLOOD ORDERABLES Final Result Performing Organization Address [facility]/ZIP Co de Phone Number [facility] [place] [address] * Blood zgpymtb-2-keyzuqbur dehydrogenase (G6PD) (08/16/2016 5:15 AM CDT) G6PD Normal [facility] HISTOR ICAL RESULTS Blood specimen (specimen) 08/16/2016 5:15 AM CDT Narrative [facility] HISTORICAL RESULTS - 08/17/2016 5:42 AM CDT Comment Deleted Tova Zayas MD LAB BLOOD ORDERABLES Final Result Performing Organization Address [facility] Co de Phone Number [facility]R HISTORICAL RESULTS * HLA B*5701 Typing (11/25/2013 4:23 PM SUGAR SAMPLER) HLA B*5701 TYPING Negative QU EST HISTORICAL RESULTS Comment: The allele HLA-B*5701 is associated with Abacavir hypersensitivity reaction (HSR). A negative result for HLA-B*5701 does not rule out the possibility of Abacavir HSR. RESULTS REVIEWED BY: see note [facility] HISTORICAL RESULTS Comment: Paula Adams, Ph.D.,D([facility]) Director, HLA and Immunogenetics References: Casa Elder. Lancet. 2002 Jan 2; 359 (6329): 727-32 Summer Almeida al. Clin. Inf. Dis. 2006 May; 43 (1): 99-102. Typing performed by PCR and hybridization with sequence specific oligonucleotide probes (SSO). 11/25/2013 4:23 PM SUGAR SAMPLER us Jodi May MD LAB BLOOD ORDERABLES Kareen ridley Result [facility] HISTORICAL RESULTS from Last 3 Months or Most Recently Relevant to Health Maintenance Insurance [facility] H[facility]/PPO Address: [address] [place] [address] [facility] HMO/PPO Address: [address] [address] [place] [address] [facility] HMO/PPO Address: [facility] [id number] [place] [address] Advance Directives For more information, please contact: [phone] * Full Code (Latest Code Status on File) Date Activated Date Inactivated Comments 01/24/2022 1:41 PM 01/24/2022 9:05 PM Care Teams Person Investigator Relationship Specialty Start Date End Date Antoinette Riley PA PCP - General Infectious Diseases 08/09/22
--- OUTSIDE RECORDS SUMMARY | 2024-11-22 16:13 | XMS_ITS | Encounter Summary ---
Author Organization [facility] Address [address] [facility] [address] [place] [address] Phone Care Team Providers Care Graphic Specialist Name Role Phone Antoinette Riley Primary Care Provider [phone] Reason for Visit * Reason Onset Date Comments Samples Provided 09/14/2023 Encounter Details Date Type Department Care Team (Late st Contact Info) Description 09/14/2023 Telephone [facility] Infectious Diseases [address] [place] [address] [address] [place] [address] [facility] Samples Provided Social History Tobacco Use [...] file 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 Can you pleaseadd this as a sample order to the med list? Aniyah ([facility]: [id number]) Qty: 30 Lot: [id number] Exp: 11/2023 documented in this encounter Plan of Treatment Not on file documented as of this encounter Visit Diagnoses Not on filedocumented in this encounter Care Teams Graphic Specialist Relationship Specialty Start Date End Date Antoinette Riley PA PCP - General Infectious Diseases 08/09/22 documented as of this encounter
--- OUTSIDE RECORDS SUMMARY | 2024-11-22 16:13 | XMS_ITS | Encounter Summary ---
Author Organization [facility] Address [address] [place] [address] Phone Care Team Providers Care Twister Tender Name Role Phone Antoinette Riley Primary Care Provider [phone] Encounter Details Date Type Department Care Team (Late st Contact Info) Description 09/28/2023 Orders Only [facility] Infectious Diseases [address] [place] [address] [address] [place] [address] Antoinette Riley PA [address] [facility] [address] [place] [address] HIV infection, unspecified symptom status [...] on file 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 Gender Identity Not on file Sexual Orientation [...] Discontinue Reason Start Date End Da te hncbrpltj-kixr-lyeha-ten of ala (Symtuza) [phone] mg tabletIndications:HIV disease (CMS/HCC) (HCC) Take 1 tablet by mouth daily Therapy completed 09/14/2023 09/28/2023 dolutegravir (TIVICAY) 50 mg tabletIndications:HIV disease (CMS/HCC) (HCC) Take 1 tablet (50 mg total) by mouth daily Therapy completed 09/14/2023 09/28/2023 xijfgjfcx-sazv-ubmmp-ten of ala (Symtuza) [id number] mg tabletIndications:HIV infection Take 1 tablet by mouth daily Therapy completed 09/17/2023 09/28/2023 documented as of this encounter Care Teams Twister Tender Relationship Specialty Start Date End Date Antoinette Riley PA PCP - General Infectious Diseases 08/09/22 documented as of this encounter
--- OUTSIDE RECORDS SUMMARY | 2024-11-22 16:13 | XMS_ITS | Encounter Summary ---
Author Organization [facility] Address [address] [facility] [address] [place] [address] Phone Care Team Providers Care Vice President Name Role Phone Antoinette Riley Primary Care Provider +1- [phone] Reason for Visit * Reason Comments Follow-up Encounter Details Date Type Department Care Team (Latest Contact Info) Description 01/10/2023 3:20 PM DETAIL MANAGER Office Visit [facility] Infectious Diseases [address] [place] [address] [address] [place] [address] Antoinette Riley PA [address] [facility] [address] [place] [address] HIV infection, unspecified symptom status [...] on file Legal Sex Male 7:55 PM DETAIL MANAGER Gender Identity Not on file Sexual Orientation Not on file documented as of this encounter Last Filed Vital Signs Vital Sign Reading Time Taken Comments Blood Pressure 119/76 01/10/2023 3:35 PM DETAIL MANAGER Pulse 67 01/10/2023 3:35 PM DETAIL MANAGER Temperature 36.4 ??C (97.6 ??F) 01/10/2023 3:35 PM CS T Respiratory Rate - - Oxygen Saturation - - Inhaled Oxygen Concentration - - Weight 101.6 kg (224 lb) 01/10/2023 3:35 PM DETAIL MANAGER Height 182.9 cm (6' 0.01 ) 01/10/2023 3:35 PM CS T Body Mass Index 30.37 01/10/2023 3:35 PM DETAIL MANAGER documented in this encounter Ordered Prescriptions Prescription [...] 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 He was [...] Cell Culture-based MDCK, Preservative Free, Antibiotic Free, Upvkpbzuhunuo99/17/2019, 10/29/2020 Influenza, Trivalent, Intramuscular 10/17/2011, 08/06/2012, 11/25/2013 Influenza, Trivalent, Preservative Free, Intramuscular 08/16/2016 Moderna SARS-CoV-2 Vaccination (12+ YRS) 01/01/2021, 01/29/2021 PPD TEST 10/26/2010, 12/12/2011, 12/31/2012 Pfizer SARS-CoV-2 Vaccination (12+ yrs) PURPLE 10/05/2021 Pneumococcal Conjugate PCV 13 06/02/2014 Pneumococcal Polysaccharide PPV23 12/31/2012, 06/28/2021 Smallpox/monkeypox Vaccine, Live, Non-replicating (Jynneos) 01/10/2023 Tdap 07/05/2018 Current Outpatient Medications: atorvastatin (LIPITOR) 10 mg tablet cetirizine (ZyrTEC) 10 mg tablet vnjnmixcw-cuta-htggy-tenof ala (Symtuza) [id number] mg tablet dolutegravir (TIVICAY) 50 mg tablet [...] Virologic Testing: HIV Screen:No results found for: [id number] CD4: Lab Results Component Value Date CD4ABS 223 (L) 01/10/2023 CD4PCT 12 (L) 01/10/2023 Common Virologic Results: Lab Results Component Value Date WES9JGT Detected (A) 01/10/2023 UAO8GHQ 626,000 01/10/2023 XMD1VAY 5.80 01/10/2023 CD4ABS 223 (L) 01/10/2023 CD4PCT [...] Assessment & Plan: Routine lab monitoring on [facility] HIV meds to assess for drug toxicity [...] in this office suite for this Physician Audio Specialist, Antoinette Riley PA-C is Dr. Beverly Jovel. documented in this encounter Miscellaneous Notes * Assessment & Plan Note - Antoinette Riley PA - 02/04/2023 9:42 AM CDT Associated Problem(s): On highly active antiretroviral therapy (HAART) Routine lab monitoring on terminal gauger HIV meds to assess for drug toxicity [...] Antoinette Riley PA - 01/12/2023 10:11 AM DETAIL MANAGER Ronak, please call the lab to add [...] (I'm putting in the order now). Thanks! [place] MANAGER documented in this encounter Plan of Treatment Not on file documented as of this encounter Procedures Procedure Name Priority Date/Time Associated Diagnosis Comments N. GONORRHOEAE/C. TRACHOMATIS AMPLIFICATION Routine 01/10/2023 4:27 PM DETAIL MANAGER HIV infection, unspecified symptom status (HCC) Routine screening for STI (sexually transmitted infection) EGFR Routine 01/10/2023 4:27 PM DETAIL MANAGER HIV infection, unspecified symptom status (HCC) On highly active antiretroviral therapy (HAART) DIFFERENTIAL AUTO Routine 01/10/2023 4:2 7 PM DETAIL MANAGER HIV infection, unspecified symptom status (HCC) On highly active antiretroviral therapy (HAART) CBC WITH AUTO DIFFERENTIAL Routine 01/10/2023 4:27 PM DETAIL MANAGER HIV infection, unspecified symptom status (HCC) On highly active antiretroviral therapy (HAART) HIV-1 RNA, QUANTITATIVE, PCR Routine 01/10/2023 4:27 PM DETAIL MANAGER HIV infection, unspecified symptom status (HCC) On highly active antiretroviral therapy (HAART) RPR Routine 01/10/2023 4:27 PM DETAIL MANAGER HIV infection, unspecified symptom status (HCC) Routine screening for STI (sexually transmitted infection) T-HELPER CELLS (CD4) COUNT Routine 01/10/2023 4:27 PM DETAIL MANAGER HIV infection, unspecified symptom status (HCC) On highly active antiretroviral therapy (HAART) COMPREHENSIVE METABOLIC PANEL Routine 01/10/2023 4:27 PM DETAIL MANAGER HIV infection, unspecified symptom status (HCC) On highly active antiretroviral therapy (HAART) documented in this encounter Results * eGFR (01/10/2023 4:27 PM DETAIL MANAGER) [facility] eGFR >90 90 - 130 mL/min/1. 73 m2 [facility] Comment: Interpretive Data [...] last reviewed 2021. Blood 01/10/2023 4:27 PM DETAIL MANAGER 01/10/2023 6:11 PM DETAIL MANAGER Antoinette GANNON LAB BLOOD ORDERABLES Final Result Performing Organization Address City/State/[facility] Co de Phone Number [facility] Department [place] [address] * Differential, auto (01/10/2023 4:27 PM DETAIL MANAGER) Neutrophil abs 1.7 1.7 - 6.5 K/cumm [facility] Imm gran abs 0.0 0.0 - 0.1 K/cumm [facility] Lymphocyte abs 2.0 0.8 - 3.3 K/cumm [facility] Monocyte abs 0.4 0.2 - 0.8 K/cumm [facility] Eosinophil abs 0.2 0.0 - 0.5 K/cumm [facility] Basophil abs 0.0 0.0 - 0.1 K/cumm [facility] Neutrophil pct 40.0 % [facility] Comment: Interpretive Data Percent cell count reference ranges are not reported, since discordance with absolute values may lead to misinterpretation of CBC data. Current Interpretive Data was last revised on 2018. Imm gran pct 0.5 % [facility] Comment: Interpretive Data Percent cell count reference ranges are not reported, since discordance with absolute values may lead to misinterpretation of CBC data. Current Interpretive Data was last revised on 2018. Lymphocyte pct 46.7 % [facility] Comment: Interpretive Data Percent cell count reference ranges are not reported, since discordance with absolute values may lead to misinterpretation of CBC data. Current Interpretive Data was last revised on 2018. Monocyte pct 8.8 % [facility] Comment: Interpretive Data Percent cell count reference ranges are not reported, since discordance with absolute values may lead to misinterpretation of CBC data. Current Interpretive Data was last revised on 2018. Eosinophil pct 3.5 % [facility] Comment: Interpretive Data Percent cell count reference ranges are not reported, since discordance with absolute values may lead to misinterpretation of CBC data. Current Interpretive Data was last revised on 2018. Basophil pct 0.5 % [facility] Comment: Interpretive Data Percent cell count reference ranges are not reported, since discordance with absolute values may lead to misinterpretation of CBC data. Current Interpretive Data was last revised on 2018. Blood 01/10/2023 4:27 PM DETAIL MANAGER 01/10/2023 5:39 PM DETAIL MANAGER Antoinette GANNON LAB BLOOD ORDERABLES Final Result Performing Organization Address City/[facility]/ZIP Co de Phone Number [facility] Department [place] [address] * RPR Blood (01/10/2023 4:27 PM DETAIL MANAGER) Pathologist [facility] RPR Nonreactive Nonreactive [facility] Blood 01/10/2023 4:27 PM DETAIL MANAGER 01/10/2023 5:39 PM DETAIL MANAGER Antoinette GANNON LAB MICROBIOLOGY - GENERAL ORDERABLES Final Result Performing Organization Address City/[facility]/ZIP Co de Phone Number [facility] Department [place] [address] * N. gonorrhoeae/C. trachomatis Amplification Urine (01/10/2023 4:27 PM DETAIL MANAGER) C. trachomatis Not Detected Not Detected [facility] N. gonorrhoeae Not Detected Not Detected [facility] Comment: Interpretive Data Testing performed by the [facility]. This assay detects Chlamydia trachomatis [...] on 2018. Urine (None) 01/10/2023 4:27 PM DETAIL MANAGER 01/10/2023 5:45 PM DETAIL MANAGER Antoinette GANNON LAB MICROBIOLOGY - GENERAL ORDERABLES Final Result Performing Organization Address [facility] Co de Phone Number [facility] [employer] [place] [address] * (ABNORMAL) HIV-1 RNA PCR, quantitative (01/10/2023 4:27 PM DETAIL MANAGER) [facility] HIV-1 RNA Detected( A) [facility] Comment: The quantifiable range of this assay is 20 copies/mL to 10,000,000 copies/mL (1.30 log copies/mL to 7.00 log copies/mL). ??Testing was performed by the NIELS 6800 HIV-1 Test([employer] Testing performed at [facility] Current Interpretive Data was last revised on 2021. HIV-1 RNA, copies/mL 626,000 copies/mL [facility] HIV-1 RNA, log 5.80 log cps/mL [facility] Blood 01/10/2023 4:27 PM DETAIL MANAGER 01/10/2023 5:45 PM DETAIL MANAGER Antoinette GANNON LAB MICROBIOLOGY - GENERAL ORDERABLES Final Result Performing Organization Address City/[facility]/ZIP Co de Phone Number [facility] [employer] [place] [address] * (ABNORMAL) Comprehensive metabolic panel (01/10/2023 4:27 PM DETAIL MANAGER) Sodium 140 135 - 145 mmol/L [facility] Potassium, pl 3.5 3.3 - 4.9 mmol/L [facility] Chloride 102 97 - 110 mmol/L [facility] CO2 29 22 - 32 mmol/L [facility] Anion gap 9 2 - 15 mmol/L [facility] BUN 7(L) 8 - 25 mg/dL [facility] Creatinine 0.94 0.80 - 1.30 mg/dL [facility] Glucose 90 70 - 199 mg/dL [facility] Comment: Interpretive Data Fasting glucose >/= [...] 2022. Calcium 9.4 8.5 - 10.3 mg/dL [facility] Bilirubin, total 0.5 0.1 - 1.2 mg/dL [facility] Protein, pl 8.3 6.5 - 8.5 g/dL [facility] Albumin 4.5 3.5 - 5.0 g/dL [facility] Alk phos 83 40 - 130 Units/L [facility] ALT 33 7 - 55 Units/L [facility] AST 32 10 - 50 Units/L [facility] Blood 01/10/2023 4:27 PM DETAIL MANAGER 01/10/2023 5:39 PM DETAIL MANAGER Antoinette GANNON LAB BLOOD ORDERABLES Final Result [facility] Department [place] [address] * (ABNORMAL) T-helper cells (CD4) count (01/10/2023 4:27 PM DETAIL MANAGER) [facility] CD4 pct 12(L) 31 - 64 % [facility] CD4 Absolute 223(L) 365 - 1,294 cells/mcL [facility] Blood 01/10/2023 4:27 PM DETAIL MANAGER 01/10/2023 5:39 PM DETAIL MANAGER Antoinette GANNON LAB BLOOD ORDERABLES Final Result Performing Organization Address City/[facility]/ZIP Co de Phone Number [facility] Department [place] [address] * (ABNORMAL) CBC with auto differential (01/10/2023 4:27 PM DETAIL MANAGER) [facility] WBC 4.3 3.8 - 9.9 K/cumm [facility] Hgb 12.1(L) 13.0 - 17.5 g/dL [facility] Hct 37.1(L) 38.9 - 50.3 % [facility] Plt 229 150 - 400 K/cumm [facility] MPV 10.4 9.1 - 12.3 fL [facility] RBC 4.59 4.30 - 5.80 M/cumm [facility] MCV 80.8(L) 81.3 - 96.4 fL [facility] MCH 26.4(L) 27.1 - 33.3 pg [facility] MCHC 32.6 32.3 - 35.7 g/dL [facility] RDW CV 13.9 11.1 - 14.9 % [facility] RDW SD 40.4 35.7 - 48.1 fL [facility] NRBC abs 0.00 0.00 - 0.01 K/cumm [facility] Blood 01/10/2023 4:27 PM DETAIL MANAGER 01/10/2023 5:39 PM DETAIL MANAGER Antoinette GANNON LAB BLOOD ORDERABLES Final Result Performing Organization Address City/[facility]/ZIP Co de Phone Number [facility] Department [place] [address] documented in this encounter Visit Diagnoses Diagnosis HIV infection, unspecified symptom status (HCC)- Primary On highly active antiretroviral therapy (HAART) Routine screening for STI (sexually transmitted infection) Screening examination for venereal disease documented in this encounter Orders Immunization/Injection Count Last Ordered Date First Ordered Date SMALLPOX MONKEYPOX VACCINE, LIVE - JYNNEOS 1 01/10/2023 documented in this encounter Care Teams Vice President Relationship Specialty Start Date End Date Antoinette Riley PA PCP - General Infectious Diseases 08/09/22 documented as of this encounter
--- OUTSIDE RECORDS SUMMARY | 2024-11-22 16:13 | XMS_ITS | Encounter Summary ---
Author Organization [facility] Address [address] [facility] [address] [place] [address] Phone Care Team Providers Care Department Of Sociology Chair Name Role Phone Antoinette Riley Primary Care Provider +1- [phone] Encounter Details Date Type Department Care Team (Late st Contact Info) Description 08/03/2023 Telephone [facility] Infectious Diseases [address] [place] [address] [address] [place] [address] Annelise Sargent Social History Tobacco [...] on file Legal Sex Male 7:55 PM RAMP SERVICE 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 Current appointment is Sep [phone] documented in this encounter Plan of Treatment Not on file documented as of this encounter Visit Diagnoses Not on filedocumented in this encounter Care Teams Department Of Sociology Chair Relationship Specialty Start Date End Date Antoinette Riley PA PCP - General Infectious Diseases 08/09/22 documented as of this encounter
--- OUTSIDE RECORDS SUMMARY | 2024-11-22 16:13 | XMS_ITS | Encounter Summary ---
Author Organization [facility] Address [address] [place] [address] Phone Care Team Providers Care Housekeeping Department Worker Name Role Phone Antoinette Riley Primary Care Provider +1- [phone] Encounter Details Date Type Department Care Team (Late st Contact Info) Description 09/17/2023 Orders Only [facility] Infectious Diseases [address] [place] [address] [address] [place] [address] Crystal Ramey MD PhD [address] [place] [address] Social History Tobacco Use Types Packs/Day [...] file Legal Sex Male 7:55 PM MANAGER ATHLETICS Gender Identity Not on file Sexual Orientation Not on file documented as of this encounter Ordered Prescriptions Prescription Sig Dispense Quantity Refills Last Filled Start Date End Date pfsdsfvkh-pefl-hut ri-tenof ala (Symtuza) [phone] mg tabletIndications: HIV infection Take 1 tablet by mouth daily 30 tablet 09/17/2023 09/28/2023 documented in this encounter Plan of Treatment Not on file documented as of this encounter Visit Diagnoses Not on filedocumented in this encounter Care Teams Housekeeping Department Worker Relationship Specialty Start Date End Date Antoinette Riley PA PCP - General Infectious Diseases 08/09/22 documented as of this encounter
--- OUTSIDE RECORDS SUMMARY | 2024-11-22 16:13 | XMS_ITS | Encounter Summary ---
Author Organization [facility] Address [address] [place] [address] Care Team Providers Care Historical Interpreter Name Role Phone Antoinette Riley Primary Care Provider +1- [phone] Encounter Details Date Type Department Care Team (Late st Contact Info) Description 08/15/[address] [facility] [address] [place] [address] Criselda Colon MD [address] [facility] [address] [address] Social History Tobacco Use Types Packs/Day Years [...] on file Legal Sex Male 7:55 PM HOUSE WRECKER Gender Identity Not on file Sexual Orientation Not on file documented as of this encounter Miscellaneous Notes * Telephone Encounter - Hortensia Pickens MA - 08/15/2023 2:[address] colon, [facility]. [facility] and faxed documented in this encounter Plan of Treatment Not on file documented as of this encounter Visit Diagnoses Diagnosis JUSTO (obstructive sleep apnea)- Primary Obstructive sleep apnea (adult) (pediatric) documented in this encounter Orders General Supply Count Last Ordered Date First Or dered Date CPAP MACHINE WITH HEATED HUMIDIFIER 1 08/15 documented in this encounter Care Teams Historical Interpreter Relationship Specialty Start Date End Date Antoinette Riley PA PCP - General Infectious Diseases 08/09/22 documented as of this encounter
--- OUTSIDE RECORDS SUMMARY | 2024-11-22 16:13 | XMS_ITS | Encounter Summary ---
Author Organization [facility] Healthcare Address [address] [place] [address] Care Team Providers Care Stripper Cutter Machine Name Role Phone Antoinette Riley Primary Care Provider +1- [phone] Encounter Details Date Type Department Care Team (Latest Contact Info) Description 01/10/2023 4:27 PM WAREHOUSE HANDLER - 01/10/2023 11:59 PM WAREHOUSE HANDLER Hospital Encounter [address] [address] Discharge Disposition: Discharge to [...] on file Legal Sex Male 7:55 PM WAREHOUSE HANDLER Gender Identity Not on file Sexual Orientation [...] mouth daily 30 tablet 5 10/04/2021 3 vqscugsfd-vhmz-o mtri-tenof ala (Symtuza) [phone] mg tabletIndication s:HIV disease (CMS/HCC) (HCC) Take [...] Antoinette Riley PA - 01/10/2023 11:59 PM WAREHOUSE HANDLER Ali will you please look over Mr. Solitario's genotype and see what we can do with his meds to maybe make things easier (and to make sure the meds are working for him)? Thank you! Antoinette HOUSE HANDLER documented in this encounter Plan of Treatment Not on file documented as of this encounter Procedures Procedure Name Priority Date/Time Associated Diagnosis Comments HIV-1 GENOTYPIC DRUG RESISTANCE Routine 01/10/2023 4:27 PM WAREHOUSE HANDLER documented in this encounter Results * HIV-1 Genotypic Drug Resistance (01/10/2023 4:27 PM WAREHOUSE HANDLER) HIV-1, genotypic drug resistance INTERP JUS JOHNSONH [...] [facility] Nonnucleoside RT mutations K103N,V106I [facility] Doravirine PLR [facility] Efavirenz HR CERNER [...] Prior documented HIV RNA copies/mL See Footnote [facility] Comment: RESULT: 1000 to 1,000,000 ADDITIONAL INFORMATION Testing was performed using the FDA-approved Quture HIV-1 Genotyping Assay ([employer], [facility] [place]), with the minimum variant detection frequency set at 5%. Actual ability to detect minor variants depends on viral load in the plasma specimen. Resistance interpretation was generated with the most current version of the [facility] HIV Drug Resistance Database (https://hivdb.[place].edu/page/algorithm-updates/). Results obtained by different assay methods should not be used interchangeably. Test Performed by: [facility] [address] [place] [address] Cargo Handler: Bo Hair M.D. Ph.D.; CLIA# [id number] Blood 01/10/2023 4:27 PM WAREHOUSE HANDLER 01/12/2023 1:39 PM WAREHOUSE HANDLER Antoinette GANNON LAB MICROBIOLOGY - GENERAL ORDERABLES Final Result [facility] Department [place] [address] documented in this encounter Visit Diagnoses Not on filedocumented in this encounter Care Teams Stripper Cutter Machine Relationship Specialty Start Date End Date Antoinette Riley PA PCP - General Infectious Diseases 08/09/22 documented as of this encounter
--- OUTSIDE RECORDS SUMMARY | 2024-11-22 16:13 | XMS_ITS | Encounter Summary ---
Author Organization [facility] Address [address] [place] [address] Phone Care Team Providers Care Mortarman Name Role Phone Antoinette Riley Primary Care Provider +1- [phone] Encounter Details Date Type Department Care Team (Late st Contact Info) Description 02/01/2023 Telephone [facility] Infectious Diseases [address] [place] [address] [address] [place] [address] Sarbjit Becker RMA Social History [...] on file Legal Sex Male 7:55 PM [employer] Gender Identity Not on file Sexual Orientation [...] on filedocumented in this encounter Care Teams Mortarman Relationship Specialty Start Date End Date Antoinette Riley PA PCP - General Infectious Diseases 08/09/22 documented as of this encounter
--- OUTSIDE RECORDS SUMMARY | 2024-11-22 16:13 | XMS_ITS | Encounter Summary ---
Author Organization [facility] Address [address] [place] [address] Phone Care Team Providers Care Child Welfare Manager Name Role Phone Antoinette Riley Primary Care Provider +1- [phone] Encounter Details Date Type Department Care Team (Late st Contact Info) Description 01/12/2023 Orders Only [facility] Infectious Diseases [address] [facility] [address] [place] [address] Antoinette Riley PA [address] [facility] [address] [place], [place] [id number] On highly active antiretroviral therapy (HAART) (Primary [...] on file Legal Sex Male 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
--- OUTSIDE RECORDS SUMMARY | 2024-11-22 16:13 | XMS_ITS | Encounter Summary ---
Author Organization [facility] Address [address] [place] [address] Phone Care Team Providers Care Director [facility] Sclerosis [facility] Name Role Phone Antoinette Riley Primary Care Provider [phone]- [phone] Reason for Visit * Reason Comments Follow-up Encounter Details Date Type Department Care Team (Latest Contact Info) Description 09/14/2023 9:20 AM CDT Office Visit [facility] Infectious Diseases [address] [place] [address] [address] [place] [address] Antoinette Riley PA [address] [address] HIV infection, unspecified symptom status [...] on file 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 Gender Identity Not on file Sexual [...] 9:20 AM CDT [facility] - [address] [phone] documented in this encounter Ordered Prescriptions Prescription [...] mouth daily 90 tablet 2 09/14/2023 3 kzeszywgd-ygtu-hoee i-tenof ala (Symtuza) [phone] mg tabletIndications:H IV disease (CMS/HCC) (HCC) Take [...] by mouth daily 90 tablet 09/14/2023 3 bkeznvmrm-aeyn-hnwt i-tenof ala (Symtuza) [phone] mg tabletIndications:H IV disease (CMS/HCC) (HCC) Take [...] Cell Culture-based MDCK, Preservative Free, Antibiotic Free, Tewumspdlikwp31/17/2019, 10/29/2020 Influenza, Trivalent, Intramuscular 10/17/2011, 08/06/2012, 11/25/2013 [...] mg tablet cetirizine (ZyrTEC) 10 mg tablet eywbvygyz-beoc-gwyvk-tenof ala (Symtuza) [phone] mg tablet oubzobbxc-iedw-wtbum-tenof ala (Symtuza) [id number] mg tablet dolutegravir (TIVICAY) 50 mg tablet [...] Virologic Testing: HIV Screen:No results found for: [id number] CD4: Lab Results Component Value Date CD4ABS <35 (L) 09/14/2023 CD4PCT 2 (L) 09/14/2023 Common Virologic Results: Lab Results Component Value Date JET5LFA Detected (A) 09/14/2023 HPM4BCK 421,000 09/14/2023 TAJ6FGS 5.62 09/14/2023 CD4ABS <35 (L) 09/14/2023 CD4PCT [...] Assessment & Plan: Routine lab monitoring on jail HIV meds to assess for drug toxicity [...] (50 mg total) by mouth daily - tcehqpasx-ajgd-elloi-tenof ala (Symtuza) [phone] mg tablet; Take 1 tablet by mouth [...] in this office suite for this Physician Seafood Service Team Member, Antoinette Riley PA-C is Dr. SANTOS May. CENTER SUPERVISOR documented in this encounter Miscellaneous Notes * Assessment & Plan Note - Antoinette Riley PA - 09/28/2023 9:02 AM CALL CENTER SUPERVISOR Associated Problem(s): On highly active antiretroviral therapy (HAART) Routine lab monitoring on jail HIV meds to assess for drug toxicity and efficacy. Given recent discontinuation of treatment, will check genotype. CENTER SUPERVISOR * Assessment & Plan Note - Antoinette Riley PA - 09/28/2023 9:01 AM CALL CENTER SUPERVISOR Associated Problem(s): HIV infection (HCC) Symtuza is now a plan exclusion. Will transition to Biktarvy + Prezcobix 100% adherence encouraged to maintain viral suppression and prevent resistance. Undetectable = untransmittable. Counseling for risk reduction, adherence and pre-conception provided. CENTER SUPERVISOR documented in this encounter Plan of [...] gonorrhoeae Not Detected Not Detected [facility] Comment: Interpretive Data Testing performed by the [facility]. This assay detects Chlamydia trachomatis and [...] - GENERAL ORDERABLES Final Result [facility] Department [place] [address] * eGFR (09/14/2023 10:05 AM CDT) eGFR >90 90 - 130 mL/min/1. 73 m2 [facility] Comment: Interpretive Data Reference Interval Normal [...] BLOOD ORDERABLES Final Result [facility] Department [place] [address] * (ABNORMAL) Differential, auto (09/14/2023 10:05 AM CDT) Neutrophil abs 1.5(L) 1.7 - 6.5 K/cumm [facility] Imm gran abs 0.0 0.0 - 0.1 K/cumm [facility] Lymphocyte abs 1.0 0.8 - 3.3 K/cumm [facility] Monocyte abs 0.4 0.2 - 0.8 K/cumm [facility] Eosinophil abs 0.1 0.0 - 0.5 K/cumm [facility] Basophil abs 0.0 0.0 - 0.1 K/cumm [facility] Neutrophil pct 48.3 % [facility] Comment: Interpretive Data Percent cell count reference ranges are not reported, since discordance with absolute values may lead to misinterpretation of CBC data. Current Interpretive Data was last revised on 2018. Imm gran pct 1.3 % [facility] Comment: Interpretive Data Percent cell count reference ranges are not reported, since discordance with absolute values may lead to misinterpretation of CBC data. Current Interpretive Data was last revised on 2018. Lymphocyte pct 32.3 % [facility] Comment: Interpretive Data Percent cell count reference ranges are not reported, since discordance with absolute values may lead to misinterpretation of CBC data. Current Interpretive Data was last revised on 2018. Monocyte pct 13.9 % [facility] Comment: Interpretive Data Percent cell count reference ranges are not reported, since discordance with absolute values may lead to misinterpretation of CBC data. Current Interpretive Data was last revised on 2018. Eosinophil pct 3.2 % [facility] Comment: Interpretive Data Percent cell count reference ranges are not reported, since discordance with absolute values may lead to misinterpretation of CBC data. Current Interpretive Data was last revised on 2018. Basophil pct 1.0 % [facility] Comment: Interpretive Data Percent cell count reference ranges are not reported, since discordance with absolute values may lead to misinterpretation of CBC data. Current Interpretive Data was last revised on 2018. Blood 09/14/2023 10:0 5 AM CDT 09/14/2023 11:33 AM CDT Antoinette GANNON LAB BLOOD ORDERABLES Final Result Performing Organization Address [facility] [[email or web address]] de Phone Number [facility] [place] [address] * (ABNORMAL) Hemoglobin A1c (09/14/2023 10:05 AM CDT) Hgb A1C 5.9(H) 4.0 - 5.6 % [facility] Estimated Average Glucose 123 mg/dL [facility] Comment: The ADA recommends reporting an [...] Organization Address [facility] Co de Phone Number [facility] [place] [address] * Hepatitis C antibody Blood (09/14/2023 10:05 AM CDT) Pathologist [facility] Hep C Ab Nonreactive Nonreactive [facility] Comment:Antibodies to HCV no t detected. Does NOT exclude the possibility of recent exposure to HCV. Current interpretive data was last revised on 22 Blood 09/14/2023 10:0 5 AM CDT 09/14/2023 11:33 AM CDT Antoinette GANNON LAB MICROBIOLOGY - GENERAL ORDERABLES Final Result [facility] Department [place] [address] * (ABNORMAL) Lipid panel (09/14/2023 10:05 AM CDT) Pathologist [facility] Cholesterol 205(H) 30 - 199 mg/dL [facility] Comment: Interpretive Data Ages < [...] revised on 2018. Triglycerides 122 <=149 mg/dL [facility] Comment: Interpretive Data Ages < [...] revised on 2018. HDL 41 >=40 mg/dL [facility] Comment: Interpretive Data Ages < or = [...] calculated 140(H) <=129 mg/dL [facility] Comment: Interpretive Data Ages < [...] 2018. Non-HDL Cholesterol 164 mg/dL [facility] Comment: Interpretive Data Ages < or [...] BLOOD ORDERABLES Final Result [facility] Department [place] [address] * T-SPOT.TB Blood (09/14/2023 10:05 AM CDT) [facility] T-SPOT.TB Negative SeeBelow [facility] Comment: Normal Value: Negative A negative [...] A Spot Count [address] [facility] T-SPOT.TB Panel B Spot Count [address] [facility] T-SPOT.TB Negative Control Passed [facility] T-SP[facility].TB Positive Control Passed [facility] Comment: Test Performed at: [facility], [employer] [address] [place], [place] ??[address] ? CONOR WALL MD,PHD Blood 09/14/2023 10:0 5 AM CDT 09/14/2023 3:13 PM CDT Antoinette GANNON LAB MICROBIOLOGY - GENERAL ORDERABLES Final Result [facility] Department [place] [address] * HIV-1 Genotypic Drug Resistance (09/14/2023 10:05 AM CDT) Pathologist [facility] HIV-1, genotypic drug resistance INTERP [facility] Comment: Interpretation of results: ?? SUSC= Susceptible [...] [facility] Integrase Mutations None [facility] Integrase failed codons None [facility] Bictegravir [facility] Cabotegravir [facility] Dolutegravir [facility] Elvitegravir [facility] Raltegravir [facility] Prior documented HIV RNA copies/mL See Footnote [facility] Comment: RESULT: 1000 to 1,000,000 ADDITIONAL INFORMATION Testing was performed using the FDA-approved, targeted next-generation sequencing-based [employer] HIV-1 Genotyping Assay ([employer], [facility]), with the minimum variant detection frequency set at 5%. Actual ability to detect minor variants depends on viral load in the plasma specimen. Resistance interpretation was generated with the most current version of the [employer] HIV Drug Resistance Database (https://hivdb.[place].edu/page/algorithm-updates/). Results obtained by different sequencing assay methods should not be used interchangeably. Test Performed by: [place] [address] Business Reporter: Bo Hair M.D. Ph.D.; CLIA# [id number] Blood 09/14/2023 10:0 5 AM CDT 09/14/2023 11:33 AM CDT Antoinette GANNON LAB MICROBIOLOGY - GENERAL ORDERABLES Final Result [facility] Department [place] [address] * RPR Blood (09/14/2023 10:05 AM CDT) [facility] RPR Nonreactive Nonreactive [facility] Blood 09/14/2023 10:0 5 AM CDT 09/14/2023 11:33 AM CDT Antoinette GANNON LAB MICROBIOLOGY - GENERAL ORDERABLES Final Result Performing Organization Address [facility] Co de Phone Number [facility] [place] [address] * (ABNORMAL) HIV-1 RNA PCR, quantitative Blood (09/14/2023 10:05 AM CDT) [facility] HIV-1 RNA Detected( A) [facility] Comment: The quantifiable range of this assay is 20 copies/mL to 10,000,000 copies/mL (1.30 log copies/mL to 7.00 log copies/mL). ??Testing was performed by the NIELS 6800 HIV-1 Test([employer] Testing performed at [facility] Current Interpretive Data was last revised on 2021. HIV-1 RNA, copies/mL 421,000 copies/mL [facility] HIV-1 RNA, log 5.62 log cps/mL [facility] Blood 09/14/2023 10:0 5 AM CDT 09/14/2023 11:33 AM CDT Antoniette GANNON LAB MICROBIOLOGY - GENERAL ORDERABLES Final Result Performing Organization Address [facility] [[email or web address]] de Phone Number [facility] Department [place] [address] * Comprehensive metabolic panel (09/14/2023 10:05 AM CDT) [facility] Sodium 145 135 - 145 mmol/L [facility] Potassium, pl 3.5 3.3 - 4.9 mmol/L [facility] Chloride 108 97 - 110 mmol/L [facility] CO2 28 22 - 32 mmol/L [facility] Anion gap 9 2 - 15 mmol/L [facility] BUN 9 6 - 25 mg/dL [facility] Creatinine 0.96 0.80 - 1.30 mg/dL [facility] Glucose 108 70 - 199 mg/dL [facility] Comment: Interpretive Data Fasting glucose >/= 126 [...] 2022. Calcium 9.4 8.5 - 10.3 mg/dL [facility] Bilirubin, total 0.4 0.1 - 1.2 mg/dL [facility] Protein, pl 8.1 6.5 - 8.5 g/dL [facility] Albumin 4.3 3.5 - 5.0 g/dL [facility] Alk phos 71 40 - 130 Units/L [facility] ALT 37 7 - 55 Units/L [facility] AST 27 10 - 50 Units/L [facility] Blood 09/14/2023 10:0 5 AM CDT 09/14/2023 11:33 AM CDT Antoinette GANNON LAB BLOOD ORDERABLES Final Result [facility] Department [place] [address] * (ABNORMAL) T-helper cells (CD4) count (09/14/2023 10:05 AM CDT) CD4 pct 2(L) 31 - 64 % [facility] Comment:Repeated and verifie d. CD4 Absolute <35(L) 365 - 1,294 cells/mcL [facility] Comment:Repeated and verifie d. Blood 09/14/2023 10:0 5 AM CDT 09/14/2023 11:18 AM CDT Antoinette GANNON LAB BLOOD ORDERABLES Final Result [facility] Department [place] [address] * (ABNORMAL) CBC with auto differential (09/14/2023 10:05 AM CDT) [facility] WBC 3.1(L) 3.8 - 9.9 K/cumm [facility] Hgb 11.4(L) 13.0 - 17.5 g/dL [facility] Comment: Interpretive Data A reference range for this assay has not been established for patients with an unknown legal sex. Please refer to the laboratory test catalog for established sex-specific reference intervals. Current interpretive data was last revised on 2023. Hct 35.0(L) 38.9 - 50.3 % [facility] Comment: Interpretive Data A reference range for this assay has not been established for patients with an unknown legal sex. Please refer to the laboratory test catalog for established sex-specific reference intervals. Current interpretive data was last revised on 2023. Plt 176 150 - 400 K/cumm [facility] MPV 11.0 9.1 - 12.[address] [facility] RBC 4.26(L) 4.30 - 5.80 M/cumm [facility] Comment: Interpretive Data A reference range for this assay has not been established for patients with an unknown legal sex. Please refer to the laboratory test catalog for established sex-specific reference intervals. Current interpretive data was last revised on 2023. MCV 82.2 81.3 - 96.[address] [facility] MCH 26.8(L) 27.1 - 33.[address] [facility] MCHC 32.6 32.3 - 35.7 g/dL [facility] RDW CV 13.1 11.1 - 14.9 % [facility] RDW SD 39.1 35.7 - 48.[address] [facility] NRBC abs 0.00 0.00 - 0.01 K/cumm [facility] Blood 09/14/2023 10:0 5 AM CDT 09/14/2023 11:33 AM CDT Antoinette GANNON LAB BLOOD ORDERABLES Final Result [facility] Department [place] [address] documented in this encounter Visit Diagnoses Diagnosis [...] total) by mouth daily Reorder 01/10/2023 09/14/2023 coujcbblm-rflb-sgwiz-tenof ala (Symtuza) [phone] mg tabletIndications:HIV disease (CMS/HCC) (HCC) Take 1 [...] home on 01/24/2022. Therapy completed 12/07/2021 09/14/2023 ysibsjnzb-qikt-kjyot-tenof ala (Symtuza) [phone] mg tabletIndications:HIV disease (CMS/HCC) (HCC) Take 1 [...] documented as of this encounter Care Teams Director Multiple Sclerosis Center Relationship Specialty Start Date End Date Antoinette Riley PA PCP - General Infectious Diseases 08/09/22 documented as of this encounter
--- OUTSIDE RECORDS SUMMARY | 2024-11-22 16:13 | XMS_ITS | Encounter Summary ---
Author Organization [facility] Address [address] [place] [address] Care Team Providers Care Bead Cutter Name Role Phone Antoinette Riley Primary Care Provider +1- [phone] Reason for Visit * Reason Onset Date Comments DME Update 12/22/2022 Encounter Details Date Type Department Care Team (Late st Contact Info) Description 12/22/2022 Telephone [facility] Medical [facility] Pulmonary [place] [address] [place] [address] Criselda Colon MD [address] [facility] [address] [address] DME Update Social History Tobacco [...] on file 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 12/22@10:31am> Spoke with patient he apologized and said he was recently in hospital. He will reach out to [employer] today. 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
--- OUTSIDE RECORDS SUMMARY | 2024-11-22 16:13 | XMS_ITS | Referral Summary ---
Author Organization [facility] Address [address] [place] [address] Care Team Providers Care Billing Representative Name Role Phone Antoinette Riley Primary Care Provider +1- [phone] Allergies No known active allergies Medications flunisolide [...] 07/05/2018 Assessment & Plan (09/28/2023 9:02 AM HOSPITAL RECEPTIONIST): Routine lab monitoring on termite control representative HIV meds to assess for drug toxicity and efficacy. Given recent discontinuation of treatment, will check genotype. Assessment & Plan (02/04/2023 9:42 AM CDT): Routine lab monitoring on termite control representative HIV meds to assess for drug toxicity and efficacy. Assessment & Plan (07/15/2022 6:03 PM CDT): Routine lab monitoring on termite control representative HIV meds to assess for drug toxicity and efficacy. Assessment & Plan (10/06/2021 8:04 PM HOSPITAL RECEPTIONIST): Routine lab monitoring on longterm HIV meds to assess for drug toxicity and efficacy. Assessment & Plan (07/15/2021 2:23 PM CDT): Routine lab monitoring on longterm HIV meds to assess for drug toxicity and efficacy. Assessment & Plan (12/15/2020 10:20 AM HOSPITAL RECEPTIONIST): Will check VL today prior to re-initiation of cART. Will recheck VL iin 6-8 weeks on cART. Assessment & Plan (04/14/2020 11:17 AM CDT): Routine lab monitoring on longterm HIV meds to assess for drug toxicity and efficacy. Assessment & Plan (10/28/2019 2:22 PM HOSPITAL RECEPTIONIST): Routine lab monitoring on longterm HIV meds to assess for drug toxicity and efficacy. Absolute anemia 07/05/2018 HIV infection 04/16/2018 Assessment & Plan (09/28/2023 9:01 AM HOSPITAL RECEPTIONIST): Symtuza is now a plan exclusion. Will [...] provided. Assessment & Plan (10/06/2021 8:04 PM HOSPITAL RECEPTIONIST): Continue Symtuza and Tivicay 100% adherence encouraged to maintain viral suppression and prevent resistance. Undetectable = untransmittable. Counseling for risk reduction, adherence and pre-conception provided. Assessment & Plan (07/15/2021 2:23 PM CDT): Continue Symtuza/Tivicay 100% adherence encouraged to maintain viral suppression and prevent resistance. Undetectable = untransmittable. Counseling for risk reduction, adherence and pre-conception provided. Assessment & Plan (12/15/2020 9:54 AM HOSPITAL RECEPTIONIST): Stop Genvoya and Prezcobix. Start Symtuza and Tivicay - pills are somewhat smaller and Tivicay is a more potent integrase inhibitor than elvitegravir. 100% adherence encouraged to maintain viral suppression and prevent resistance. Undetectable = untransmittable. Risk reduction counseling and adherence counseling provided. RTC 6 weeks to check on adherence, tolerance, and viral load. Assessment & Plan (11/18/2020 9:10 AM HOSPITAL RECEPTIONIST): Continue Genvoya/Prezista with 100% adherence encouraged to maintain viral suppression and prevent resistance. Undetectable = untransmittable. Risk reduction counseling and adherence counseling provided. Assessment & Plan (04/14/2020 11:17 AM CDT): Continue Genvoya/Prezista with 100% adherence encouraged to maintain viral suppression and prevent resistance. Undetectable = untransmittable. Risk reduction counseling and adherence counseling provided. Assessment & Plan (10/28/2019 2:22 PM HOSPITAL RECEPTIONIST): Continue Genvoya/Prezista with 100% adherence encouraged to [...] on file Legal Sex Male 7:55 PM HOSPITAL RECEPTIONIST Gender Identity Not on file Sexual [...] Routine 06/28/2021 11:26 AM CDT Polyuria BLOOD MNKFNWA-4-ZTWTWAENR DEHYDROGENASE (G6PD) Routine 08/16/2016 5:15 AM CDT HLA B*5701 TYPING Routine 11/25/2013 4:2 3 PM HOSPITAL RECEPTIONIST from Last 3 Months or Most Recently Relevant to Health Maintenance Results * T-SPOT.TB Blood (09/14/2023 10:05 AM CDT) [facility] T-SPOT.TB Negative SeeBelow [facility] Comment: Normal Value: Negative A negative [...] test. T-SPOT.TB Panel A Spot Count 0 [facility] T-SPOT.TB Panel B Spot Count 0 [facility] T-SPOT.TB Negative Control Passed [facility] T-SPOT.TB Positive Control Passed [facility] Comment: Test Performed at: [employer] [facility] [employer] [place], [place] ??[address] ? CONOR WALL MD,PHD Blood 09/14/2023 10:0 5 AM CDT 09/14/2023 3:13 PM CDT Antoinette GANNON LAB MICROBIOLOGY - GENERAL ORDERABLES Final Result Performing Organization Address [facility] de Phone Number [facility] [place] [address] * Hepatitis C antibody Blood (09/14/2023 10:05 AM CDT) [facility] Hep C Ab Nonreactive Nonreactive [facility] Comment:Antibodies to HCV no t detected. Does NOT exclude the possibility of recent exposure to HCV. Current interpretive data was last revised on 22 Blood 09/14/2023 10:0 5 AM CDT 09/14/2023 11:33 AM CDT Antoinette GANNON LAB MICROBIOLOGY - GENERAL ORDERABLES Final Result Performing Organization Address [facility] de Phone Number [facility] Department [place] [address] * RPR Blood (09/14/2023 10:05 AM CDT) [facility] RPR Nonreactive Nonreactive [facility] Blood 09/14/2023 10:0 5 AM CDT 09/14/2023 11:33 AM CDT Antoinette GANNON LAB MICROBIOLOGY - GENERAL ORDERABLES Final Result Performing Organization Address [facility] de Phone Number [facility] [place] [address] * (ABNORMAL) Hemoglobin A1c (09/14/2023 10:05 AM CDT) [facility] Hgb A1C 5.9(H) 4.0 - 5.6 % [facility] Estimated Average Glucose 123 mg/dL [facility] Comment: The ADA recommends reporting an estimated [...] GANNON LAB BLOOD ORDERABLES Final Result [facility] Department [place] [address] * (ABNORMAL) Lipid panel (09/14/2023 10:05 AM [...] revised on 2018. HDL 41 >=40 mg/dL [facility] Comment: Interpretive Data Ages [...] on 2018. LDL, calculated 140(H) <=129 mg/dL [facility] Comment: Interpretive Data Ages [...] revised on 2018. Non-HDL Cholesterol 164 mg/dL [facility] Comment: Interpretive Data Ages [...] last revised on 2018. Chol/HDL ratio 5 [facility] Blood 09/14/2023 10:0 5 AM CDT 09/14/2023 11:33 AM CDT Antoinette GANNON LAB BLOOD ORDERABLES Final Result [facility] Department [place] [address] * COLONOSCOPY (01/24/2022 2:27 PM CDT) Anatomical Region Laterality Modality Other Narrative Procedure Note Richard Juarez MD - 01/24/2022 2:27 PM CDT [facility] ENDOS[facility] Patient Name: Dashawn Solitario Procedure Date: 01/24/2022 2:27 PM Date of : 1970 Admit Type: Outpatient Age: 51 Gender: Male Attending MD: Richard Juarez M.D. Room: [facility] ENDOSCOPY ROOM 3 Note Status: [...] The scope was passed under direct vision.The [id number] endoscope was introduced through the anus and advanced to the cecum, identified by appendiceal orifice and ileocecal valve. The colonoscopy was performed without difficulty. The patient tolerated the procedure well. The qualityof the bowel preparation was good. The quality of the bowel preparation was evaluated using the BBPS([place] Bowel Preparation Scale) with scores of: RightColon [...] On: 01/24/2022 2:27 PM Recognized by the [place] [employer] for promoting quality [...] CDT 06/28/2021 3:31 PM CDT Narrative [facility] - 06/28/2021 3:43 PM CDT ?? Urine pH is affected by diet, medications, systemic acid-base disturbances, and renal tubular function. ??pH may affect urinary stone formation. ??For example, urine pH below 6.0 may help reduce the tendency for calcium phosphate stones and pH greater than 6.0 may reduce the tendency for uric acid stone formation. Source: [facility] [employer]. Last revised 11-22-2017 Antoinette GANNON LAB MICROBIOLOGY - GENERAL ORDERABLES Final Result [facility] Department [place] [address] * PSA screen (06/28/2021 11:26 AM CDT) [...] BLOOD ORDERABLES Final Result [facility] Department [place] [address] * Blood svxwvrv-7-qeetndltj dehydrogenase (G6PD) (08/16/2016 5:15 AM CDT) G6PD Normal [facility] HISTOR ICAL RESULTS Blood specimen (specimen) 08/16/2016 5:15 AM CDT Narrative [facility] HISTORICAL RESULTS - 08/17/2016 5:42 AM CDT Comment Deleted us Tova Zayas MD LAB BLOOD ORDERABLES Final Result Performing Organization Address [facility] Co de Phone Number CDR HISTORICAL RESULTS * HLA B*5701 Typing (11/25/2013 4:23 PM HOSPITAL RECEPTIONIST) HLA B*5701 TYPING Negative QU EST HISTORICAL RESULTS Comment: The allele HLA-B*5701 is associated with Abacavir hypersensitivity reaction (HSR). A negative result for HLA-B*5701 does not rule out the possibility of Abacavir HSR. RESULTS REVIEWED BY: see note [facility] HISTORICAL RESULTS Comment: Paula Adams, Ph.D.,D([facility]) Director, HLA and Immunogenetics References: Casa S. et al. Lancet. 2002 Jan 2; 359 (1752): 727-32 Summer Almeida al. Clin. Inf. Dis. 2005; 43 (1): 99-102. Typing performed by PCR and hybridization with sequence specific oligonucleotide probes (SSO). 11/25/2013 4:23 PM HOSPITAL RECEPTIONIST us Jodi May MD LAB BLOOD ORDERABLES Kareen l Result [facility] HISTORICAL RESULTS from Last 3 Months or Most Recently Relevant to Health Maintenance Insurance [facility] [employer] [employer] [place] [id number] [facility] PL[facility] Advance Directives For more information, please contact: [phone] * Full Code (Latest Code Status on File) Date Activated Date Inactivated Comments 01/24/2022 1:41 PM 01/24/2022 9:05 PM Care Teams Billing Representative Relationship Specialty Start Date End Date Antoinette Riley PA PCP - General Infectious Diseases 08/09/22
--- OUTSIDE RECORDS SUMMARY | 2024-11-22 16:13 | XMS_ITS | Encounter Summary ---
Author Organization [facility] Address [address] [facility] [address] [place] [address] Phone Care Team Providers Care Sports Teacher Name Role Phone Antoinette Riley Primary Care Provider +1- [phone] Reason for Visit * Reason Comments Injections Encounter Details Date Type Department Care Team (Latest Contact Info) Description 02/19/2023 10:00 AM CDT Clinical Support [facility] Infectious Diseases [address] [place] [address] [address] [place] [address] HIV infection, unspecified symptom status [...] on file Legal Sex 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
--- OUTSIDE RECORDS SUMMARY | 2024-11-22 16:13 | XMS_ITS | Encounter Summary ---
Author Organization 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
--- OUTSIDE RECORDS SUMMARY | 2024-11-22 16:13 | XMS_ITS | Encounter Summary ---
Author Organization [facility] Address [address] [place] [address] Phone Care Team Providers Care Wound Care Nurse Name Role Phone Antoinette Riley Primary Care Provider +1- [phone] Encounter Details Date Type Department Care Team (Late st Contact Info) Description 02/05/2023 Orders Only 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 Gender Identity Not on file Sexual Orientation Not on file documented as of this encounter Ordered Prescriptions Prescription Sig Dispense Quantity Refills Last Filled Start Date End Date dolutegravir (TIVICAY) 50 mg tabletIndications: HIV disease (CMS/HCC) (HCC) Take 1 tablet (50 mg total) by mouth daily 90 tablet 2 02/05/2023 09/14/2023 qocbrtbuz-bazk-bmp ri-tenof ala (Symtuza) [phone] mg tabletIndications: HIV disease (CMS/HCC) (HCC) Take 1 tablet by mouth daily 90 tablet 2 02/05/2023 09/14/2023 documented in this encounter Plan of Treatment Not on file documented as of this encounter Visit Diagnoses Diagnosis HIV disease (CMS/HCC) (HCC) Human immunodeficiency virus [HIV] disease documented in this encounter Discontinued Medications Medication Sig Discontinue Reason Start Date End Da te mremrjfdv-ksbu-oxsha-ten of ala (Symtuza) [phone] mg tabletIndications:HIV disease (CMS/HCC) (HCC) Take 1 tablet by mouth daily Reorder 04/24/2022 02/05/2023 dolutegravir (TIVICAY) 50 mg tabletIndications:HIV disease (CMS/HCC) (HCC) Take 1 tablet (50 mg total) by mouth daily Reorder 04/24/2022 02/05/2023 documented as of this encounter Care Teams Wound Care Nurse Relationship Specialty Start Date End Date Antoinette Riley PA PCP - General Infectious Diseases 08/09/22 documented as of this encounter
--- OUTSIDE RECORDS SUMMARY | 2024-11-22 16:13 | XMS_ITS | Encounter Summary ---
Author Organization [facility] Healthcare Address [address] [place] [address] Care Team Providers Care Engineering Manager Electronics Name Role Phone Antoinette Riley Primary Care Provider +1- [phone] Reason for Visit * Reason Comments Follow-up Encounter Details Date Type Department Care Team (Late st Contact Info) Description 08/15/2023 11:15 AM CDT Office Visit [facility] Pulmonary [place] [address] [place] [address] [address] [place] [address] Criselda Colon MD [address] 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 His DME is [facility]. ROS: Review of other system other than [...] using CPAP. We will communicate with his [facility] company, [facility] to set up CPAP of 12 cm [...] created in part with the assistance of [employer] voice recognition software. Farm Management Adviser variances may occur. For patients or family [...] 31.0-31.9,adult documented in this encounter Care Teams Engineering Manager Electronics Relationship Specialty Start Date End Date Antoinette Riley PA PCP - General Infectious Diseases 08/09/22 documented as of this encounter
--- OUTSIDE RECORDS SUMMARY | 2024-11-22 16:14 | XMS_ITS | Encounter Summary ---
Author Organization [facility] Address [address] [place] [address] Phone Care Team Providers Care Forensic Psychiatrist Name Role Phone Gucci Vilchis MD Primary Care Provider [phone] Encounter Details Date Type Department Care Team (Late st Contact Info) Description 10/06/2021 Orders Only [facility] Infectious Diseases [address] [place] [address] Antoinette Riley PA [address] [facility] [address] [place] [address] HIV disease (CMS/HCC) (HCC) (Primary Dx); On highly active antiretroviral therapy (HAART); Routine screening for STI (sexually transmitted infection) Social History Tobacco Use Types Packs/Day Years Used Date Smoking Tobacco: Never Smokeless Tobacco: Never Sex and Gender Information Value Date Recorded Sex Assigned at Not on file Legal Sex Male 7:55 PM 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 OGICAL MANAGER documented in this encounter Plan of Treatment Not on file documented as of this encounter Visit Diagnoses Diagnosis HIV disease (CMS/HCC) (HCC)- Primary Human immunodeficiency virus [HIV] disease On highly active antiretroviral therapy (HAART) Routine screening for STI (sexually transmitted infection) Screening examination for venereal disease documented in this encounter Care Teams Forensic Psychiatrist Relationship Specialty Start Date End Date Gucci Vilchis MD PCP - General 04/16/17 08/08/22 [facility] Greens Laborer 10/30/18 12/08/21 documented as of this encounter
--- OUTSIDE RECORDS SUMMARY | 2024-11-22 16:14 | XMS_ITS | Encounter Summary ---
Author Organization [facility] Address [address] [place] [address] Phone Care Team Providers Care Supervisor Hand Silvering Name Role Phone Gucci Vilchis MD Primary Care Provider [phone] Encounter Details Date Type Department Care Team (Late st Contact Info) Description 12/27/2021 Orders Only [facility] Infectious Diseases [address] [place] [address] [address] [place] [address] Antoinette Riley PA [address] [place] [address] [address] [place] [address] HIV disease (CMS/HCC) (HCC) Social History Tobacco Use Types Packs/Day Years Used Date Smoking Tobacco: Never Smokeless Tobacco: Never Sex and Gender Information Value Date Recorded Sex Assigned at Not on file Legal 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 Male 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 Gender Identity Not on file Sexual Orientation Not on file documented as of this encounter Ordered Prescriptions Prescription Sig Dispense Quantity Refills Last Filled Start Date End Date dolutegravir (TIVICAY) 50 mg tabletIndications: HIV disease (CMS/HCC) (HCC) Take 1 tablet (50 mg total) by mouth daily 90 tablet 2 12/27/2021 02/01/2022 nkkqkcuvz-fvzz-arm ri-tenof ala (Symtuza) [phone] mg tabletIndications: HIV disease (CMS/HCC) (HCC) Take 1 tablet by mouth daily 90 tablet 2 12/27/2021 02/01/2022 documented in this encounter Plan of Treatment Not on file documented as of this encounter Visit Diagnoses Diagnosis HIV disease (CMS/HCC) (HCC) Human immunodeficiency virus [HIV] disease documented in this encounter Discontinued Medications Medication Sig Discontinue Reason Start Date End Da te gtgoaxbtd-atqv-sjixi-ten of ala (Symtuza) [phone] mg tabletIndications:HIV disease (CMS/HCC) (HCC) Take 1 tablet by mouth daily Reorder 12/26/2021 12/27/2021 dolutegravir (TIVICAY) 50 mg tabletIndications:HIV disease (CMS/HCC) (HCC) Take 1 tablet (50 mg total) by mouth daily Reorder 12/26/2021 12/27/2021 documented as of this encounter Care Teams Supervisor Hand Silvering Relationship Specialty Start Date End Date Gucci Vilchis MD PCP - General 04/16/17 08/08/22 documented as of this encounter
--- OUTSIDE RECORDS SUMMARY | 2024-11-22 16:14 | XMS_ITS | Encounter Summary ---
Author Organization [facility] Healthcare Address [address] [place] [address] Care Team Providers Care Hog Buyer Name Role Phone Gucci Vilchis MD Primary Care Provider [phone] [phone] Reason for Visit * Reason Onset Date Comments GI PRE PROCEDURE ASSESSMENT 12/07/2021 Encounter Details Date Type Department Care Team (Late st Contact Info) Description 12/07/2021 Telephone [facility] Specialty Services [address] [place] [address] Yolanda Dewitt RN GI PRE PROCEDURE ASSESSMENT Social History Tobacco Use Types Packs/Day Years Used Date Smoking Tobacco: Never Smokeless Tobacco: Never Sex and Gender Information Value Date Recorded Sex Assigned at Not on file Legal Sex Male 7:[address] PRODUCTION MANAGER Gender Identity Not on file Sexual [...] None ENDOCRINE: None PRIOR PROCEDURE ISSUES: None HOME CARE RN/: NA IMPLANTS.: None Notes: DIABETIC MEDS Y/N: [...] limitations: Scheduling Scheduling location limitations: no andreea Lathe Puller needed [x] NA Language: POA [x] NA Name: SPECIAL PROCEDURE INSTRUCTIONS Scheduling Notes Procedure information Date of procedure: 01/24/2022 Time of procedure: 1:45pm Arrival time: 12:45pm Location: [facility] Proceduralist: Richard Juarez MD Instructions Method of instructions: Mailed copy12/07/2021 [x]Confirmation of ride/gritting machine operator [x]Post anesthesia restrictions given [x]NPO Instructions:Drink Golytely/Nulytely [...] Copy [facility] on file, address verified [address] PRODUCTION MANAGER documented in this encounter Plan of Treatment Not on file documented as of this encounter Visit Diagnoses Not on filedocumented in this encounter Care Teams Hog Buyer Relationship Specialty Start Date End Date Gucci Vilchis MD PCP - General 04/16/17 08/08/22 [facility] Hospitalist Nocturnist Physician 10/30/18 12/08/21 documented as of this encounter
--- OUTSIDE RECORDS SUMMARY | 2024-11-22 16:14 | XMS_ITS | Encounter Summary ---
Author Organization [facility] Address [address] [facility] [address] [place] [address] Phone Care Team Providers Care Angular Js Developer Name Role Phone Gucci Vilchis MD Primary Care Provider [phone] Encounter Details Date Type Department Care Team (Late st Contact Info) Description 12/09/2021 Telephone [facility] Infectious Diseases [address] [place] [address] Sarbjit Becker, [facility] Social History Tobacco Use Types Packs/Day Years Used Date Smoking Tobacco: Never Smokeless Tobacco: Never Sex and Gender Information Value Date Recorded Sex Assigned at Not on file Legal Sex Male 7:55 PM EMPLOYMENT 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 OYMENT REPRESENTATIVE * Telephone Encounter - Adela Chance - 12/09/2021 2:42 PM CST Started PA through CMM OYMENT REPRESENTATIVE * Telephone Encounter - Mine [facility] - 12/09/2021 2:14 PM CST His prescription coverage is through [employer]. This is the info I have and it appears to be active. ID: [id number] Grp: [id number] Insurance OYMENT REPRESENTATIVE * Telephone Encounter - Adela Chance - 12/09/2021 2:08 PM CST No big deal. I was just trying to get insurance info, because of course there isn't any in the chart. OYMENT REPRESENTATIVE * Telephone Encounter - Adela Chance - 12/09/2021 2:08 PM CST Do you guys happen to have insurance info on this patient? There is nothing in his chart. OYMENT REPRESENTATIVE * Telephone Encounter - Flora Humphries - 12/09/2021 2:06 PM CST Adela Gresham can follow up on this OYMENT REPRESENTATIVE * Telephone Encounter - Adela Chance - 12/09/2021 1:15 PM CST No problem, Thank you for looking. OYMENT REPRESENTATIVE * Telephone Encounter - Be Renner BS - 12/09/2021 1:02 PM EMPLOYMENT REPRESENTATIVE Unfortunately, Kristine also could not locate any information on Mr. Solitario. Sorry! OYMENT REPRESENTATIVE * Telephone Encounter - Adela Chance - 12/09/2021 11:43 AM CST Thanks! OYMENT REPRESENTATIVE * Telephone Encounter - Be Renner BS - 12/09/2021 11:28 AM EMPLOYMENT REPRESENTATIVE Called [facility] to inquire about patient's insurance. Was informed patient now makes too much money to enroll in [facility] Fluid-1. Sent a message to Kristine to see if she can locate any other information regarding insurance. OYMENT REPRESENTATIVE * Telephone Encounter - Adela Chance - 12/09/2021 11:09 AM CST Thanks Be! OYMENT REPRESENTATIVE * Telephone Encounter - Be Renner BS - 12/09/2021 11:00 AM EMPLOYMENT REPRESENTATIVE Hello, I cannot tell if this patient has insurance because he lives in [place]. I am contacting benefits specialist Kristine Linder to see if she can assist. If that doesn't work I'll call his CM agency. OYMENT REPRESENTATIVE * Telephone Encounter - Adela Chance - 12/09/2021 10:49 AM CST I DON'T EVEN SEE HE HAS INSURANCE, JUST RW OYMENT REPRESENTATIVE * Telephone Encounter - Flora Humphries - 12/09/2021 10:48 AM CST I haven't but I can call the pharmacy. OYMENT REPRESENTATIVE * Telephone Encounter - Adela Chance - 12/09/2021 10:46 AM CST Morena, Are you able to see if this patient has insurance? OYMENT REPRESENTATIVE * Telephone Encounter - Adela Chance - 12/09/2021 10:41 AM CST Did you happen to get anything on him, I think he used to be on a Sunday and it moving to Sunday. I don't see any note of it/ OYMENT REPRESENTATIVE * Telephone Encounter - Sarbjit Becker RMA - 12/09/2021 10:34 AM EMPLOYMENT REPRESENTATIVE Pt was told by pharmacy that the [employer] needs an ins PA. Pt would like a call back once approved. OYMENT REPRESENTATIVE documented in this encounter Plan of Treatment Not on file documented as of this encounter Visit Diagnoses Not on filedocumented in this encounter Care Teams Angular Js Developer Relationship Specialty Start Date End Date Gucci Vilchis MD PCP - General 04/16/17 08/08/22 documented as of this encounter
--- OUTSIDE RECORDS SUMMARY | 2024-11-22 16:14 | XMS_ITS | Encounter Summary ---
Author Organization [facility] Address [address] [facility] [address] [place] [address] Phone Care Team Providers Care Hand Edge Bander Name Role Phone Gucci Vilchis MD Primary Care Provider [phone] Encounter Details Date Type Department Care Team (Late st Contact Info) Description 10/10/[address] 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 Solitario needed to have CMP and VL done. I meant RPR and VL. Sorry about that. Antoinette POTATO CUTTER documented in this encounter Plan of Treatment Not on file documented as of this encounter Visit Diagnoses Not on filedocumented in this encounter Care Teams Hand Edge Bander Relationship Specialty Start Date End Date Gucci Vilchis MD PCP - General 04/16/17 08/08/22 [facility] Senior Operations Analyst 10/30/18 12/08/21 documented as of this encounter
--- OUTSIDE RECORDS SUMMARY | 2024-11-22 16:14 | XMS_ITS | Encounter Summary ---
Author Organization [facility] Address [address] [facility] [address] [place] [address] Care Team Providers Care Drilling Rig Operator Name Role Phone Antoinette Riley Primary Care Provider [phone] Reason for Referral * Sleep Medicine (Routine) - Closed Specialty Diagnoses / Procedures Referred By Markell tong Referred To Contact Diagnoses JUSTO (obstructive sleep apnea) Procedures PSG Criselda Colon MD Phone: tel: fax: [facility] [address] [place] [address] Phone: tel: fax: Referral ID Status Reason Start Date Expiration Date Visits Re quested Visits Authorized [id number] Closed 09/05/2022 10/05/2023 1 1 Encounter Details Date Type Department Care Team (Late st Contact Info) Description 09/05/2022 Orders Only [facility] Pulmonology [address] [facility] [address] [place] [id number] Criselda Colon MD [address] [facility] [address] [place] [address] JUSTO (obstructive sleep apnea) (Primary [...] on file Legal Sex Male 7:55 PM FEED WEIGHER Gender Identity Not on file Sexual Orientation Not on file documented as of this encounter Plan of Treatment Not on file documented as of this encounter Results * PSG (10/11/2022 8:11 PM FEED WEIGHER) us Criselda Colon MD [facility] ORDERABLES Fin al Result Performing Organization Address City/State/[facility] Co de Phone Number [facility] [address] [place] [address] documented in this encounter Visit Diagnoses Diagnosis JUSTO (obstructive sleep apnea)- Primary Obstructive sleep apnea (adult) (pediatric) documented in this encounter Care Teams Drilling Rig Operator Relationship Specialty Start Date End Date Antoinette Riley PA PCP - General Infectious Diseases 08/09/22 documented as of this encounter
--- OUTSIDE RECORDS SUMMARY | 2024-11-22 16:14 | XMS_ITS | Encounter Summary ---
Author Organization [facility] Address [address] [place] [address] Care Team Providers Care Auto Design Detailer Name Role Phone Gucci Vilchis MD Primary Care Provider [phone] Encounter Details Date Type Department Care Team (Late st Contact Info) Description 01/24/2022 1:45 PM CDT - 01/24/2022 2:30 PM CDT Surgery [facility] Digestive Disease [place] [address] [facility] [address] [place] [address] Richard Juarez MD [address] [facility] [address] [place] [address] COLONOSCOPY SG/OA Surgery Details Date/Time Status Location OR Service Patient Class Case Class Case Type Trauma Case? 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 MD REMOVAL ANAL FISTULA,SUBCUTANEOUS Anal Fistulotomy (Subcutaneous) - [...] mouth daily 10/04/21 Yes Antoinette Riley PA ddiarpikc-cmlh-dntfr-tenof ala (Symtuza) [phone] mg tablet Take 1 tablet by mouth [...] Past Surgical History: Procedure Laterality Date ??? MD REMOVAL ANAL FISTULA,SUBCUTANEOUS Anal Fistulotomy (Subcutaneous) - [...] mouth daily 10/04/21 Yes Antoinette Riley PA yaqwhdygg-olov-lqeiy-tenof ala (Symtuza) [phone] mg tablet Take 1 tablet by mouth [...] Male Attending MD: Richard Juarez M.D. Room: [facility] ENDOSCOPY ROOM 3 Note Status: Finalized [...] scope was passed under direct vision. The [id number] endoscope was introduced through the anus and advanced to the cecum, identified by appendiceal orifice and ileocecal valve. The colonoscopy was performed without difficulty. The patient tolerated the procedure well. The quality of the bowel preparation was good. The quality of the bowel preparation was evaluated using the BBPS ([place] Bowel Preparation Scale) with scores of: Right [...] On: 01/24/2022 2:27 PM Recognized by the [place] [employer] for promoting quality [...] experiencing laryngo spasms and began to destat. special events manager called for Dr. Valencia and began positve [...] Male Attending MD: Richard Juarez M.D. Room: [facility] ENDOSCOPY ROOM 3 Note Status: Finalized [...] scope was passed under direct vision.The CF [id number] endoscope was introduced through the anus and advanced to the cecum, identified by appendiceal orifice and ileocecal valve. The colonoscopy was performed without difficulty. The patient tolerated the procedure well. The qualityof the bowel preparation was good. The quality of the bowel preparation was evaluated using the BBPS([place] Bowel Preparation Scale) with scores of: RightColon [...] On: 01/24/2022 2:27 PM Recognized by the [place] [employer] for promoting quality [...] this section may contain times in both STRATEGY CONSULTANT and CDT. Scheduled Medication Order 01/22/2022 01/23/2022 [...] 01/10 documented in this encounter Care Teams Auto Design Detailer Relationship Specialty Start Date End Date Gucci Vilchis MD PCP - General 04/16/17 08/08/22 documented as of this encounter
--- OUTSIDE RECORDS SUMMARY | 2024-11-22 16:14 | XMS_ITS | Encounter Summary ---
Author Organization [facility] Healthcare Address [address] [place] [address] Care Team Providers Care Community Engagement Coordinator Name Role Phone Gucci Vilchis MD Primary Care Provider [phone] Encounter Details Date Type Department Care Team (Latest Contact Info) Description 01/24/2022 12:30 PM CDT - 01/24/2022 5:03 PM CDT Hospital Encounter [facility] Digestive Disease [place] [address] [facility] [address] [place] [address] Richard Juarez MD [address] [facility] [address] [place] [address] Discharge Disposition: Discharge to home or self [...] on file Legal Sex Male 7:55 PM DIRECTOR DRUG Gender Identity Not on file Sexual Orientation [...] mouth daily 30 tablet 5 10/04/2021 3 xmynoksyt-kyrh-n mtri-tenof ala (Symtuza) [phone] mg tabletIndication s:HIV disease (CMS/HCC) (HCC) Take [...] Past Surgical History: Procedure Laterality Date ??? DC REMOVAL ANAL FISTULA,SUBCUTANEOUS Anal Fistulotomy (Subcutaneous) - [...] mouth daily 10/04/21 Yes Antoinette Riley PA ddpcxdqml-ogkq-sqvio-tenof ala (Symtuza) [phone] mg tablet Take 1 tablet by mouth [...] Past Surgical History: Procedure Laterality Date ??? DC REMOVAL ANAL FISTULA,SUBCUTANEOUS Anal Fistulotomy (Subcutaneous) - [...] mouth daily 10/04/21 Yes Antoinette Riley PA maqykpnqr-mity-rfflz-tenof ala (Symtuza) [phone] mg tablet Take 1 tablet by mouth [...] Male Attending MD: Richard Juarez M.D. Room: [facility] ENDOSCOPY ROOM 3 Note Status: Finalized [...] was passed under direct vision. The CF [id number] endoscope was introduced through the anus and advanced to the cecum, identified by appendiceal orifice and ileocecal valve. The colonoscopy was performed without difficulty. The patient tolerated the procedure well. The quality of the bowel preparation was good. The quality of the bowel preparation was evaluated using the BBPS ([place] Bowel Preparation Scale) with scores of: Right [...] On: 01/24/2022 2:27 PM Recognized by the [place] [employer] G[employer]oscopy for promoting quality [...] experiencing laryngo spasms and began to destat. behavioral specialist called for Dr. Valencia and began positve [...] Male Attending MD: Richard Juarez M.D. Room: [facility] ENDOSCOPY ROOM 3 Note Status: Finalized [...] scope was passed under direct vision.The CF [id number] endoscope was introduced through the anus and advanced to the cecum, identified by appendiceal orifice and ileocecal valve. The colonoscopy was performed without difficulty. The patient tolerated the procedure well. The qualityof the bowel preparation was good. The quality of the bowel preparation was evaluated using the BBPS([place] Bowel Preparation Scale) with scores of: RightColon [...] On: 01/24/2022 2:27 PM Recognized by the [place] [employer] G[employer]oscopy for promoting quality [...] this section may contain times in both DIRECTOR DRUG and CDT. Scheduled Medication Order 01/22/2022 01/23/2022 [...] 01/10 documented in this encounter Care Teams Community Engagement Coordinator Relationship Specialty Start Date End Date Gucci Vilhcis MD PCP - General 04/16/17 08/08/22 documented as of this encounter
--- OUTSIDE RECORDS SUMMARY | 2024-11-22 16:14 | XMS_ITS | Encounter Summary ---
Author Organization [facility] Address [address] [facility] [address] [place] [address] Phone Care Team Providers Care Security System Administrator Name Role Phone Gucci Vilchis MD Primary Care Provider [phone] Encounter Details Date Type Department Care Team (Late st Contact Info) Description 10/05/2021 Telephone [facility] Infectious Diseases [address] [place] [address] Heidi Curry RPh Social History Tobacco Use Types Packs/Day Years Used Date Smoking Tobacco: Never Smokeless Tobacco: Never Sex and Gender Information Value Date Recorded Sex Assigned at Not on file Legal Sex Male 7:55 PM HYDROGRAPHICAL TECHNICAL OFFICER Gender Identity Not on file Sexual Orientation Not on file documented as of this encounter Miscellaneous Notes * Telephone Encounter - Heidi Curry RPh - 10/05/2021 2:04 PM CST Patient has completed the consent form in the pharmacy. Please document the following under historical immunizations. Thank you! 3RD/BOOSTER Dose of Pfizer series given in the Left Deltoid on 10/05/21. [facility]: [id number] Qty: 0.3mL Lot: [id number] Exp: 04/11/2022 OGRAPHICAL TECHNICAL OFFICER documented in this encounter Plan of Treatment Not on file documented as of this encounter Visit Diagnoses Not on filedocumented in this encounter Care Teams Security System Administrator Relationship Specialty Start Date End Date Gucci Vilchis MD PCP - General 04/16/17 08/08/22 Yuliana Burleson Conduit Mechanic 10/30/18 12/08/21 documented as of this encounter
--- OUTSIDE RECORDS SUMMARY | 2024-11-22 16:14 | XMS_ITS | Encounter Summary ---
Author Organization [facility] Address [address] [place] [address] Care Team Providers Care Retail Leasing Agent Name Role Phone Antoinette Riley Primary Care Provider [phone] Encounter Details Date Type Department Care Team (Late st Contact Info) Description 10/19/2022 Telephone [facility] Sleep Lab [address] [place], [place] [id number] Froy Cid RPSGT Social History Tobacco Use [...] on file Legal Sex Male 7:55 PM SOFTWARE TEST TECHNICIAN Gender Identity Not on file Sexual Orientation Not on file documented as of this encounter Miscellaneous Notes * Telephone Encounter - Froy Cid RPSGT - 10/19/2022 2:52 PM SOFTWARE TEST TECHNICIAN TALKED TO THE PATIENT ABOUT HIS CPAP TITRATION RESULTS (CPAP 12 CM, 96%) AND FAXED THE CPAP ORDER TO [facility]. RT WARE TEST TECHNICIAN documented in this encounter Plan of Treatment Not on file documented as of this encounter Visit Diagnoses Not on filedocumented in this encounter Care Teams Retail Leasing Agent Relationship Specialty Start Date End Date Antoinette Riley PA PCP - General Infectious Diseases 08/09/22 documented as of this encounter
--- OUTSIDE RECORDS SUMMARY | 2024-11-22 16:14 | XMS_ITS | Encounter Summary ---
Author Organization [facility] Address [address] [place] [address] Phone Care Team Providers Care Machine Wiper Name Role Phone Gucci Vilchis MD Primary Care Provider [phone] Encounter Details Date Type Department Care Team (Late st Contact Info) Description 04/24/2022 Telephone [facility] Infectious Diseases [address] [place] [address] Lara Mast Social History Tobacco Use [...] on file Legal Sex Male 7:55 PM CADASTRAL SURVEYOR Gender Identity Not on file Sexual Orientation [...] on filedocumented in this encounter Care Teams Machine Wiper Relationship Specialty Start Date End Date Gucci Vilchis MD PCP - General 04/16/17 08/08/22 documented as of this encounter
--- OUTSIDE RECORDS SUMMARY | 2024-11-22 16:14 | XMS_ITS | Encounter Summary ---
Author Organization [facility] Address [address] [place] [address] Phone Care Team Providers Care Master Data Analyst Name Role Phone Gucci Vilchis MD Primary Care Provider [phone] Encounter Details Date Type Department Care Team (Late st Contact Info) Description 02/01/2022 Orders Only [facility] Infectious Diseases [address] [place] [address] [address] [place] [address] Jodi May MD [address] [facility] [address] [place] [address] HIV disease (CMS/HCC) ([facility]) Social History Tobacco Use Types Packs/Day [...] on file Legal Sex Male 7:55 PM 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 BRICK Gender Identity Not on file Sexual Orientation Not on file documented as of this encounter Ordered Prescriptions Prescription Sig Dispense Quantity Refills Last Filled Start Date End Date dolutegravir (TIVICAY) 50 mg tabletIndications: HIV disease (CMS/HCC) (HCC) Take 1 tablet (50 mg total) by mouth daily 90 tablet 02/01/2022 04/24/2022 aklchcklh-ifcq-iup ri-tenof ala (Symtuza) [phone] mg tabletIndications: HIV disease (CMS/HCC) (HCC) Take [...] Discontinue Reason Start Date End Da te ksgxyfzyk-nxld-livji-ten of ala (Symtuza) [phone] mg tabletIndications:HIV disease (CMS/HCC) (HCC) Take 1 tablet by mouth daily Reorder 12/27/2021 02/01/2022 dolutegravir (TIVICAY) 50 mg tabletIndications:HIV disease (CMS/HCC) (HCC) Take 1 tablet (50 mg total) by mouth daily Reorder 12/27/2021 02/01/2022 documented as of this encounter Care Teams Master Data Analyst Relationship Specialty Start Date End Date Gucci Vilchis MD PCP - General 04/16/17 08/08/22 documented as of this encounter
--- OUTSIDE RECORDS SUMMARY | 2024-11-22 16:14 | XMS_ITS | Encounter Summary ---
Author Organization [facility] Address [address] [place] [address] Phone Care Team Providers Care Trip Follower Name Role Phone Gucci Vilchis MD Primary Care Provider [phone] Encounter Details Date Type Department Care Team (Late st Contact Info) Description 12/26/2021 Orders Only [facility] Infectious Diseases [address] [place] [address] [address] [place] [address] Antoinette Riley PA [address] [place] [address] [address] [place] [address] HIV disease (CMS/HCC) (HCC) Social History Tobacco Use Types Packs/Day Years Used Date Smoking Tobacco: Never Smokeless Tobacco: Never Sex and Gender Information Value Date Recorded Sex Assigned at Not on file Legal Sex Male 7:55 PM GLASS BLOWER Gender Identity Not on file Sexual Orientation Not on file documented as of this encounter Ordered Prescriptions Prescription Sig Dispense Quantity Refills Last Filled Start Date End Date dolutegravir (TIVICAY) 50 mg tabletIndications: HIV disease (CMS/HCC) (HCC) Take 1 tablet (50 mg total) by mouth daily 90 tablet 2 12/26/2021 12/27/2021 ymeyxahsr-rnjh-ruu ri-tenof ala (Symtuza) [phone] mg tabletIndications: HIV disease (CMS/HCC) (HCC) Take 1 tablet by mouth daily 90 tablet 2 12/26/2021 12/27/2021 documented in this encounter Plan of Treatment Not on file documented as of this encounter Visit Diagnoses Diagnosis HIV disease (CMS/HCC) (HCC) Human immunodeficiency virus [HIV] disease documented in this encounter Discontinued Medications Medication Sig Discontinue Reason Start Date End Da te fynfpffrr-wdhj-skhgi-ten of ala (Symtuza) [phone] mg tabletIndications:HIV disease (CMS/HCC) (HCC) Take 1 tablet by mouth daily Reorder 12/14/2020 12/26/2021 dolutegravir (TIVICAY) 50 mg tabletIndications:HIV disease (CMS/HCC) (HCC) Take 1 tablet (50 mg total) by mouth daily Reorder 12/14/2020 12/26/2021 documented as of this encounter Care Teams Trip Follower Relationship Specialty Start Date End Date Gucci Vilchis MD PCP - General 04/16/17 08/08/22 documented as of this encounter
--- OUTSIDE RECORDS SUMMARY | 2024-11-22 16:14 | XMS_ITS | Encounter Summary ---
Author Organization [facility] Address [address] [facility] [address] [place] [address] Phone Care Team Providers Care Weapons Mechanic Name Role Phone Antoinette Riley Primary Care Provider +1- [phone] Encounter Details Date Type Department Care Team (Late st Contact Info) Description 08/31/[address] [facility] Infectious Diseases [address] [place] [address] [address] [place] [address] Lara Mast Social History Tobacco [...] on file Legal Sex Male 7:55 PM IRON HANDLER Gender Identity Not on file Sexual Orientation Not on file documented as of this encounter Miscellaneous Notes * Telephone Encounter - Noé Gasca Jr., RN - 08/31/2022 9:25 AM CDT Return call made to [facility] they were notified by pt that he is receiving his C-PAP soon. So no further questions needed. HUNTER Umanzor * Telephone Encounter - Pro Lara Soraya. - 08/31/2022 8:55 AM CDT [facility] wanting to know if ID received the paperwork for patient to participate in a sleep study. Wanting o know if patient did the sleep study. documented in this encounter Plan of Treatment Not on file documented as of this encounter Visit Diagnoses Not on filedocumented in this encounter Care Teams Weapons Mechanic Relationship Specialty Start Date End Date Antoinette Riley PA PCP - General Infectious Diseases 08/09/22 documented as of this encounter
--- OUTSIDE RECORDS SUMMARY | 2024-11-22 16:14 | XMS_ITS | Encounter Summary ---
Author Organization [facility] Healthcare Address [address] [place] [address] Care Team Providers Care Dockworker Name Role Phone Gucci Vilchis MD Primary Care Provider +1 -[phone] Encounter Details Date Type Department Care Team (Late st Contact Info) Description 06/28/2021 3:35 PM CDT Lab [address] [address] Social History Tobacco Use Types Packs/Day Years Used Date Smoking Tobacco: Never Smokeless Tobacco: Never Sex and Gender Information Value Date Recorded Sex Assigned at Not on file Legal Sex Male 7:55 PM NON DESTRUCTIVE EVALUATION SPECIALIST Gender Identity Not on file Sexual [...] growth based on current clinical standards) [facility] Organism (CLINICALLY INSIGNIFICANT GROWTH [facility] Urine 06/28/2021 11:2 6 AM CDT 06/28/2021 7:16 PM CDT Narrative [facility] - 06/29/2021 9:52 PM CDT Urine culture reflexed based upon urinalysis results. Testing performed by [facility] Microbiology Laboratory ([phone]) Antoinette GANNON LAB MICROBIOLOGY - GENERAL ORDERABLES Final Result [facility] Department [place] [address] documented in this encounter Visit Diagnoses Not on filedocumented in this encounter Care Teams Dockworker Relationship Specialty Start Date End Date Gucci Vilchis MD PCP - General 04/16/17 08/08/22 [facility] [place] Director Writing 10/30/18 12/08/21 documented as of this encounter
--- OUTSIDE RECORDS SUMMARY | 2024-11-22 16:14 | XMS_ITS | Encounter Summary ---
Author Organization [facility] Healthcare Address [address] [place] [address] Care Team Providers Care System Development Engineer Name Role Phone Gucci Vilchis MD Primary Care Provider [phone] Encounter Details Date Type Department Care Team (Late st Contact Info) Description 11/14/2021 Telephone [facility] Specialty Services [address] [place] [address] Lara Jim RN Social History Tobacco Use Types Packs/Day Years Used Date Smoking Tobacco: Never Smokeless Tobacco: Never Sex and Gender Information Value Date Recorded Sex Assigned at Not on file Legal Sex Male 7:55 PM BOARD MACHINE SET UP OPERATOR Gender Identity Not on file Sexual Orientation Not on file documented as of this encounter Miscellaneous Notes * Telephone Encounter - Lara Jim RN - 11/14/2021 3:25 PM BOARD MACHINE SET UP OPERATOR Spoke to pt regarding GI procedure. Pt interested in scheduling. Transferred pt to [facility] in GI scheduling hub and also provided pt with number at [phone]. D MACHINE SET UP OPERATOR documented in this encounter Plan of Treatment Not on file documented as of this encounter Visit Diagnoses Not on filedocumented in this encounter Care Teams System Development Engineer Relationship Specialty Start Date End Date Gucci Vilchis MD PCP - General 04/16/17 08/08/22 [facility] Freight Adjuster 10/30/18 12/08/21 documented as of this encounter
--- OUTSIDE RECORDS SUMMARY | 2024-11-22 16:14 | XMS_ITS | Encounter Summary ---
Author Organization [facility] Healthcare Address [address] [place] [address] Care Team Providers Care Motorman/Woman Name Role Phone Gucci Vilchis MD Primary Care Provider [phone] [phone] Encounter Details Date Type Department Care Team (Late st Contact Info) Description 10/04/2021 5:45 PM EMBOSSING MACHINE OPERATOR Lab [address] [address] Social History Tobacco Use Types Packs/Day Years Used Date Smoking Tobacco: Never Smokeless Tobacco: Never Sex and Gender Information Value Date Recorded Sex Assigned at Not on file Legal Sex Male 7:55 PM EMBOSSING MACHINE OPERATOR Gender Identity Not on file Sexual Orientation Not on file documented as of this encounter Plan of Treatment Not on file documented as of this encounter Procedures Procedure Name Priority Date/Time Associated Diagnosis Comments MISLABLED TEST Routine 10/04/2021 11:44 AM EMBOSSING MACHINE OPERATOR MISLABLED TEST Routine 10/04/2021 11:44 AM EMBOSSING MACHINE OPERATOR documented in this encounter Results * Mislabeled Test (10/04/2021 11:44 AM EMBOSSING MACHINE OPERATOR) Location Outreach [facility] Comment:[id number]/INFWU Reason Wrong Patient Drawn [facility] Mislabel resolution Testing canceled [facility] Blood 10/04/2021 11:4 4 AM EMBOSSING MACHINE OPERATOR 10/05/2021 7:53 AM EMBOSSING MACHINE OPERATOR Antoinette GANNON LAB BLOOD ORDERABLES Final Result Performing Organization Address [facility] Co de Phone Number [facility] One [facility] Department [place] [address] * Mislabeled Test (10/04/2021 11:44 AM EMBOSSING MACHINE OPERATOR) Location Outreach [facility] Reason Specimen and Requistion labeling differ [facility] Comment: For the Patient Dashawn Solitario [...] knapp top tube. Mislabel resolution Testing canceled [facility] Blood 10/04/2021 11:4 4 AM EMBOSSING MACHINE OPERATOR 10/04/2021 7:32 PM EMBOSSING MACHINE OPERATOR Antoinette GANNON LAB BLOOD ORDERABLES Final Result Performing Organization Address [facility] Co de Phone Number [facility] Department [place] [address] documented in this encounter Visit Diagnoses Not on filedocumented in this encounter Care Teams Motorman/Woman Relationship Specialty Start Date End Date Gucci Vilchis MD PCP - General 04/16/17 08/08/22 [facility] [place] Packing Machine Tender 10/30/18 12/08/21 documented as of this encounter
--- OUTSIDE RECORDS SUMMARY | 2024-11-22 16:14 | XMS_ITS | Encounter Summary ---
Author Organization [facility] Address [address] [place] [address] Phone Care Team Providers Care Electrode Cleaner Name Role Phone Gucci Vilchis MD Primary Care Provider [phone] [phone] Encounter Details Date Type Department Care Team (Late st Contact Info) Description 12/22/2021 Orders Only [facility] Infectious Diseases [address] [place] [address] [address] [place] [address] Antoinette Riley PA [address] [facility] [address] [place], [place] [id number] Social History Tobacco Use Types Packs/Day Years Used Date Smoking Tobacco: Never Smokeless Tobacco: Never Sex and Gender Information Value Date Recorded Sex Assigned at Not on file Legal Sex Male 7:55 PM SALES SERVICE MANAGER Gender Identity Not on file Sexual Orientation Not on file documented as of this encounter Plan of Treatment Not on file documented as of this encounter Visit Diagnoses Not on filedocumented in this encounter Care Teams Electrode Cleaner Relationship Specialty Start Date End Date Gucci Vilchis MD PCP - General 04/16/17 08/08/22 documented as of this encounter
--- OUTSIDE RECORDS SUMMARY | 2024-11-22 16:14 | XMS_ITS | Encounter Summary ---
Author Organization [facility] Healthcare Address [address] [place] [address] Care Team Providers Care Launching Pad Mechanic Name Role Phone Gucci Vilchis MD Primary Care Provider [phone] [phone] Encounter Details Date Type Department Care Team (Latest Contact Info) Description 07/05/2022 4:27 PM CDT - 07/05/2022 11:59 PM CDT Hospital Encounter [address] [address] Discharge Disposition: Discharge to home or self [...] on file Legal Sex Male 7:55 PM UNDERGRADUATE INTERNSHIP Gender Identity Not on file Sexual Orientation [...] mouth daily 30 tablet 5 10/04/2021 3 odqchuaga-mgip-e mtri-tenof ala (Symtuza) [phone] mg tabletIndication s:HIV disease (CMS/HCC) ([facility]) Take 1 tablet by mouth daily 90 tablet 2 04/24/2022 3 dolutegravir (TIVICAY) 50 mg tabletIndication s:HIV disease ([facility]/HCC) ([facility]) Take 1 tablet (50 mg [...] on filedocumented in this encounter Care Teams Launching Pad Mechanic Relationship Specialty Start Date End Date Gucci Vilchis MD PCP - General 04/16/17 08/08/22 documented as of this encounter
--- OUTSIDE RECORDS SUMMARY | 2024-11-22 16:14 | XMS_ITS | Encounter Summary ---
Author Organization [facility] Healthcare Address [address] [place] [address] Care Team Providers Care Manufacturing Applications Engineer Name Role Phone Antoinette Riley Primary Care Provider [phone]- [phone] Reason for Visit * Reason Onset Date Comments Home sleep study results 09/06/2022 Encounter Details Date Type Department Care Team (Late st Contact Info) Description 09/06/2022 Telephone [facility] Sleep Lab [address] [place], [place] [id number] Criselda Colon MD [address] [facility] [address] [address] Home sleep study results Social History Tobacco [...] on file Legal Sex Male 7:55 PM STEWARD/STEWARDESS SMOKE ROOM Gender Identity Not on file Sexual Orientation [...] on filedocumented in this encounter Care Teams Manufacturing Applications Engineer Relationship Specialty Start Date End Date Antoinette Riley PA PCP - General Infectious Diseases 08/09/22 documented as of this encounter
--- OUTSIDE RECORDS SUMMARY | 2024-11-22 16:14 | XMS_ITS | Encounter Summary ---
Author Organization [facility] Healthcare Address [address] [place] [address] Care Team Providers Care Bi Consultant Name Role Phone Antoinette Riley Primary Care Provider +1- [phone] Reason for Referral * Sleep Medicine (Routine) - Closed Specialty Diagnoses / Procedures Referred By Markell tong Referred To Contact Diagnoses JUSTO (obstructive sleep apnea) Procedures PSG Criselda Colon MD Phone: tel: fax: [facility] [address] [place] [address] Phone: tel: fax: Referral ID Status Reason Start Date Expiration Date Visits Re quested Visits Authorized [id number] Closed 09/05/2022 10/05/2023 1 1 ORATE MEETING PLANNER Reason for Visit * Sleep Medicine (Routine) - Closed Specialty Diagnoses / Procedures Referred By Markell tong Referred To Contact Diagnoses JUSTO (obstructive sleep apnea) Procedures PSG Criselda Colon MD Phone: tel: fax: [facility] [address] [place] [address] Phone: tel: fax: Referral ID Status Reason Start Date Expiration Date Visits Re quested Visits Authorized [id number] Closed 09/05/2022 10/05/2023 1 1 Encounter Details Date Type Department Care Team (Latest Contact Info) Description 10/11/2022 8:00 PM CORPORATE MEETING PLANNER - 10/11/2022 11:59 PM CORPORATE MEETING PLANNER Hospital Encounter [facility] Sleep Lab [address] [place] [address] JUSTO (obstructive sleep apnea) Discharge Disposition: Discharge [...] on file Legal Sex Male 7:55 PM CORPORATE MEETING PLANNER Gender Identity Not on file Sexual [...] mouth daily 30 tablet 5 10/04/2021 3 tvyclqaip-npux-s mtri-tenof ala (Symtuza) [id number] mg tabletIndication s:HIV disease (CMS/HCC) ([place] [...] PM Actions taken: Charge Capture section accepted ORATE MEETING PLANNER documented in this encounter Plan of Treatment Not on file documented as of this encounter Procedures Procedure Name Priority Date/Time Associated Diagnosis Comments PSG (SIMPLE) Routine 10/11/2022 8:11 PM CORPORATE MEETING PLANNER JUSTO (obstructive sleep apnea) documented in this encounter Results * PSG (10/11/2022 8:11 PM CORPORATE MEETING PLANNER) Criselda Colon MD SLEEP CENTER ORDERABLES Fin al Result Performing Organization Address City/State/[facility] Co de Phone Number [facility] SLEEP MEDICINE [address] [place] [address] documented in this encounter Visit Diagnoses Diagnosis JUSTO (obstructive sleep apnea) Obstructive sleep apnea (adult) (pediatric) documented in this encounter Care Teams Bi Consultant Relationship Specialty Start Date End Date Antoinette Riley PA PCP - General Infectious Diseases 08/09/22 documented as of this encounter
--- OUTSIDE RECORDS SUMMARY | 2024-11-22 16:14 | XMS_ITS | Encounter Summary ---
Author Organization [facility] Address [address] [place] [address] Phone Care Team Providers Care Home Health Care Worker Name Role Phone Gucci Vilchis MD Primary Care Provider [phone] Encounter Details Date Type Department Care Team (Late st Contact Info) Description 04/24/2022 Orders Only [facility] Infectious Diseases [address] [place] [address] [address] [place] [address] Antoinette Riley PA [address] [facility] [address] [place] [address] HIV disease (CMS/HCC) (HCC) Social [...] on file Legal 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 Gender Identity Not on file Sexual Orientation Not on file documented as of this encounter Ordered Prescriptions Prescription Sig Dispense Quantity Refills Last Filled Start Date End Date dolutegravir (TIVICAY) 50 mg tabletIndications: HIV disease (CMS/HCC) (HCC) Take 1 tablet (50 mg total) by mouth daily 90 tablet 2 04/24/2022 02/05/2023 rbfrfprqd-qwkh-xwu ri-tenof ala (Symtuza) [phone] mg tabletIndications: HIV disease (CMS/HCC) (HCC) Take 1 tablet by mouth daily 90 tablet 2 04/24/2022 02/05/2023 documented in this encounter Plan of Treatment Not on file documented as of this encounter Visit Diagnoses Diagnosis HIV disease (CMS/HCC) (HCC) Human immunodeficiency virus [HIV] disease documented in this encounter Discontinued Medications Medication Sig Discontinue Reason Start Date End Da te xkmuwaefu-xlzg-qdjpv-ten of ala (Symtuza) [phone] mg tabletIndications:HIV disease (CMS/HCC) (HCC) Take 1 tablet by mouth daily Reorder 02/01/2022 04/24/2022 dolutegravir (TIVICAY) 50 mg tabletIndications:HIV disease (CMS/HCC) (HCC) Take 1 tablet (50 mg total) by mouth daily Reorder 02/01/2022 04/24/2022 documented as of this encounter Care Teams Home Health Care Worker Relationship Specialty Start Date End Date Gucci Vilchis MD PCP - General 04/16/17 08/08/22 documented as of this encounter
--- OUTSIDE RECORDS SUMMARY | 2024-11-22 16:14 | XMS_ITS | Encounter Summary ---
Author Organization [facility] Address [address] [address] Care Team Providers Care Chief Of Staff Name Role Phone Antoinette Riley Primary Care Provider +1- [phone] Reason for Referral * Sleep Medicine (Routine) - Closed Specialty Diagnoses / Procedures Referred By Markell tong Referred To Contact Diagnoses Other sleep apnea Psychophysiological insomnia Fatigue, unspecified type Nonsmoker Family history of sleep apnea BMI 30.0-30.9,adult Procedures Portable/Home Sleep Study Criselda Colon MD Phone: tel: fax: [facility] [address] [place] [address] Phone: tel: fax: Referral ID Status Reason Start Date Expiration Date Visits Re quested Visits Authorized [id number] Closed 08/09/2022 09/08/2023 1 1 Encounter Details Date Type Department Care Team (Late st Contact Info) Description 08/09/2022 9:30 AM CDT Office Visit 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 His [place] sleeping score is 6/24. He lives in [place], [place]. [facility]. He does not have any pets. [...] CREATED IN PART WITH THE ASSISTANCE OF [employer] VOICE RECOGNITION SOFTWARE. POLYMER SPECIALIST VARIANCES MAY OCCUR. documented in this encounter Plan of Treatment Not on file documented as of this encounter Results * Portable/Home Sleep Study (09/04/2022 2:55 PM CDT) us Criselda Colon MD SLEEP CENTER ORDERABLES Fin al Result Performing Organization Address City/State/[facility] Co de Phone Number [facility] SLEEP MEDICINE [address] [place] [address] documented in this encounter Visit Diagnoses Diagnosis Other sleep apnea- Primary Psychophysiological insomnia Persistent disorder of initiating or maintaining sleep Fatigue, unspecified type Nonsmoker Other specified conditions influencing health status Family history of sleep apnea Family history of other condition BMI 30.0-30.9,adult documented in this encounter Care Teams Chief Of Staff Relationship Specialty Start Date End Date Antoinette Riley PA PCP - General Infectious Diseases 08/09/22 documented as of this encounter
--- OUTSIDE RECORDS SUMMARY | 2024-11-22 16:14 | XMS_ITS | Encounter Summary ---
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
--- OUTSIDE RECORDS SUMMARY | 2024-11-22 16:14 | XMS_ITS | Encounter Summary ---
Author Organization 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 Lvm, [facility] * Telephone Encounter - Sarbjit Becker RMA - 02/01/2022 9:44 AM CDT [facility] [address] [facility]. [place], [place] # [phone], requesting scripts for the Symtuza and Tivicay. Pt Ins will cover this pharmacy for fill at this time. documented in this encounter Plan of Treatment Not on file documented as of this encounter Visit Diagnoses Not on filedocumented in this encounter Care Teams Technical Services Librarian Relationship Specialty Start Date End Date Gucci Vilchis MD PCP - General 04/16/17 08/08/22 documented as of this encounter
--- OUTSIDE RECORDS SUMMARY | 2024-11-22 16:14 | XMS_ITS | Encounter Summary ---
Author Organization [facility] Address [address] [facility] [address] [place] [address] Phone Care Team Providers Care Wildlife Biologist Name Role Phone Gucci Vilchis MD Primary Care Provider [phone] Reason for Visit * Reason Comments Follow-up HIV Positive/AIDS Encounter Details Date Type Department Care Team (Latest Contact Info) Description 07/05/2022 3:20 PM CDT Office Visit [facility] Infectious Diseases [address] [place] [address] [address] [place] [address] Antoinette Riley PA [address] [address] HIV infection, unspecified symptom status [...] on file 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 He [...] Cell Culture-based MDCK, Preservative Free, Antibiotic Free, Nypfryjalgbjr65/17/2019, 10/29/2020 Influenza, Trivalent, Intramuscular 10/17/2011, 08/06/2012, 11/25/2013 Influenza, Trivalent, Preservative Free, Intramuscular 08/16/2016 Moderna SARS-CoV-2 Vaccination (12+ YRS) 01/01/2021, 01/29/2021 PPD TEST 10/26/2010, 12/12/2011, 12/31/2012 Pfizer SARS-CoV-2 Vaccination (12+ yrs) PURPLE 10/05/2021 Pneumococcal Conjugate PCV 13 06/02/2014 Pneumococcal Polysaccharide PPV23 12/31/2012, 06/28/2021 Tdap 07/05/2018 Current Outpatient Medications: cetirizine (ZyrTEC) 10 mg tablet ywgntcrhe-ueaq-zrzeg-tenof ala (Symtuza) [phone] mg tablet dolutegravir (TIVICAY) 50 mg tablet [...] trachomatis rRNA Negative for: Neisseria gonorrhoeae rRNA [id number] NOT DETECTED 12/31/2012 [id number] NOT DETECTED 12/31/2012 [id number] NOT DETECTED 11/25/2013 [id number] NOT DETECTED 11/25/2013 No results found for: TRICHOMONU, TRICHOMONAS ANNUAL LABS AND SCREENING -TB SCREENING Lab Results Component Value Date IFNGAMMAREL Negative 07/05/2018 [id number] See Comment 08/16/2016 PPD Negative 07/05/2022 -LIPIDS [...] PAP No results found for: HIRSKHPVRNA, HPVG16, [id number], ZPNJIIVQ8X1 -PROSTATE CANCER SCREENING IF HIGH RISK Lab Results Component Value Date PSA 0.80 06/28/2021 BASELINE SCREENING -HEPATITIS A IMMUNITY STATUS Lab Results Component Value Date HAV Positive (A) 08/16/2016 -HEPATITIS B IMMUNITY STATUS Lab Results Component Value Date HEPBSAB Positive 08/16/2016 HEPBSAB 384 08/16/2016 -TOXOPLASMA IMMUNITY STATUS Lab Results Component Value Date TOXOIGG Negative 12/05/2018 [id number] < OR = 0.90 11/25/2013 -CMV IMMUNITY STATUS No results found for: CMVIGG -G6PD LEVEL (NORMAL >4.6) Lab Results Component Value Date G6PD Normal 08/16/2016 -[id number] STATUS Lab Results Component Value Date [id number] Negative 11/25/2013 CANCER SCREENING 01/24/2022 - repeat [...] in this office suite for this Physician [employer], Antoinette Riley PA-C is Dr. Emeka Wallace. documented in this encounter Miscellaneous Notes * Assessment & Plan Note - Antoinette Riley PA - 07/15/2022 6:03 PM CDT Associated Problem(s): Obstructive sleep apnea Patient experienced apneic episode during colonoscopy. Referred to sleep medicine for sleep study. * Assessment & Plan Note - Antoinette Riely PA - 07/15/2022 6:02 PM CDT Associated Problem(s): On highly active antiretroviral therapy (HAART) Routine lab monitoring on dedicated intermodal truck driver HIV meds to assess for [...] * (ABNORMAL) eGFR (07/05/2022 4:27 PM CDT) [facility] eGFR 75(L) 90 - 130 mL/min/1. 73 [...] BLOOD ORDERABLES Final Result Performing Organization Address City/State/[facility] Co de Phone Number [facility] [place] [address] * (ABNORMAL) Differential, auto (07/05/2022 4:27 PM CDT) Neutrophil abs 1.3(L) 1.7 - 6.5 K/cumm [facility] Imm gran abs 0.0 0.0 - 0.1 K/cumm [facility] Lymphocyte abs 2.2 0.8 - 3.3 K/cumm [facility] Monocyte abs 0.3 0.2 - 0.8 K/cumm [facility] Eosinophil abs 0.2 0.0 - 0.5 K/cumm [facility] Basophil abs 0.0 0.0 - 0.1 K/cumm [facility] Neutrophil pct 32.1 % [facility] Comment: Interpretive Data Percent cell count reference ranges are not reported, since discordance with absolute values may lead to misinterpretation of CBC data. Current Interpretive Data was last revised on 2018. Imm gran pct 0.3 % [facility] Comment: Interpretive Data Percent cell count reference ranges are not reported, since discordance with absolute values may lead to misinterpretation of CBC data. Current Interpretive Data was last revised on 2018. Lymphocyte pct 54.3 % [facility] Comment: Interpretive Data Percent cell count reference ranges are not reported, since discordance with absolute values may lead to misinterpretation of CBC data. Current Interpretive Data was last revised on 2018. Monocyte pct 8.3 % [facility] Comment: Interpretive Data Percent cell count reference ranges are not reported, since discordance with absolute values may lead to misinterpretation of CBC data. Current Interpretive Data was last revised on 2018. Eosinophil pct 4.0 % [facility] Comment: Interpretive Data Percent cell count reference ranges are not reported, since discordance with absolute values may lead to misinterpretation of CBC data. Current Interpretive Data was last revised on 2018. Basophil pct 1.0 % [facility] Comment: Interpretive Data Percent cell count reference ranges are not reported, since discordance with absolute values may lead to misinterpretation of CBC data. Current Interpretive Data was last revised on 2018. Blood 07/05/2022 4:27 PM CDT 07/05/2022 6:46 PM CDT us Antoinette GANNON LAB BLOOD ORDERABLES Final Result [facility] Department [place] [address] * Glucose, random (Outreach) (07/05/2022 4:27 PM CDT) Glucose 85 70 - 199 mg/dL [facility] Comment: Interpretive Data Fasting glucose [...] Antoinette GANNON LAB BLOOD ORDERABLES Final Result [facility] [place] [address] * Comprehensive metabolic panel, without glucose (Outreach) (07/05/2022 4:27 PM CDT) Sodium 141 135 - 145 mmol/L [facility] Potassium, pl 3.3 3.3 - 4.9 mmol/L [facility] Chloride 103 97 - 110 mmol/L [facility] CO2 29 22 - 32 mmol/L [facility] Anion gap 9 2 - 15 mmol/L [facility] BUN 10 8 - 25 mg/dL [facility] Creatinine 1.18 0.80 - 1.30 mg/dL [facility] Calcium 9.5 8.5 - 10.3 mg/dL [facility] Protein, pl 7.8 6.5 - 8.5 g/dL [facility] Albumin 4.7 3.5 - 5.0 g/dL [facility] Bilirubin, total 0.4 0.1 - 1.2 mg/dL [facility] Alk phos 66 40 - 130 Units/L [facility] AST 21 10 - 50 Units/L [facility] ALT 28 7 - 55 Units/L [facility] Blood 07/05/2022 4:27 PM CDT 07/05/2022 6:46 PM CDT Antoinette GANNON LAB BLOOD ORDERABLES Final Result Performing Organization Address [facility] Co de Phone Number [facility] [place] [address] * Hepatitis C antibody (07/05/2022 4:27 PM CDT) [facility] Hep C Ab Nonreactive Nonreactive [facility] Comment:Antibodies to HCV no t detected. Does NOT exclude the possibility of recent exposure to HCV. Blood 07/05/2022 4:27 PM CDT 07/05/2022 6:46 PM CDT Result [facility] Antoinette GANNON LAB MICROBIOLOGY - GENERAL ORDERABLES Edited Result - Final Performing Organization Address [facility] Phone Number [facility] [place] [address] * (ABNORMAL) Hemoglobin A1c (07/05/2022 4:27 PM CDT) [facility] Hgb A1C 5.9(H) 4.0 - 5.6 % [facility] Estimated Average Glucose 123 mg/dL [facility] Comment: The ADA recommends [...] BLOOD ORDERABLES Final Result Performing Organization Address [facility] Co de Phone Number [facility] [place] [address] * (ABNORMAL) Lipid panel (07/05/2022 4:27 PM CDT) [facility] Cholesterol 267(H) 30 - 199 mg/dL [facility] Comment: [...] on 2018. Triglycerides 196(H) <=149 mg/dL [facility] Comment: [...] on 2018. HDL 42 >=40 mg/dL [facility] Comment: [...] 2018. LDL, calculated 186(H) <=129 mg/dL [facility] Comment: [...] last revised on 2018. Chol/HDL ratio 6 [facility] Blood 07/05/2022 4:27 PM CDT 07/05/2022 6:46 PM CDT Antoinette GANNON LAB BLOOD ORDERABLES Final Result [facility] [place] [address] * T-SPOT.TB (07/05/2022 4:27 PM CDT) [facility] T-SPOT.TB Negative SeeBelow [facility] Comment: Normal Value: Negative A negative test [...] test. T-SPOT.TB Panel A Spot Count 0 [facility] T-SPOT.TB Panel B Spot Count 1 [facility] T-SPOT.TB Negative Control Passed [facility] T-SPOT.TB Positive Control Passed [facility] Comment: Test Performed at: [facility] [address] [place] [address] ??[id number] ? CONOR WALL MD,PHD Blood 07/05/2022 4:27 PM CDT 07/05/2022 6:50 PM CDT Antoinette GANNON LAB MICROBIOLOGY - GENERAL ORDERABLES Final Result Performing Organization Address [facility] Co de Phone Number [facility] [place] [address] * RPR Blood (07/05/2022 4:27 PM CDT) [facility] RPR Nonreactive Nonreactive [facility] Blood 07/05/2022 4:27 PM CDT 07/05/2022 6:46 PM CDT Antoinette GANNON LAB MICROBIOLOGY - GENERAL ORDERABLES Final Result Performing Organization Address [facility] Co de Phone Number [facility] [place] [address] * (ABNORMAL) T-helper cells (CD4) count (07/05/2022 4:27 PM CDT) [facility] CD4 pct 21(L) 31 - 64 % [facility] CD4 Absolute 411 365 - 1,294 cells/mcL [facility] Blood 07/05/2022 4:27 PM CDT 07/05/2022 6:46 PM CDT Antoinette GANNON LAB BLOOD ORDERABLES Final Result Performing Organization Address [facility] Co de Phone Number [facility] Department [place] [address] * (ABNORMAL) CBC with auto differential (07/05/2022 4:27 PM CDT) [facility] WBC 4.0 3.8 - 9.9 K/cumm [facility] Hgb 13.1 13.0 - 17.5 g/dL [facility] Hct 38.8(L) 38.9 - 50.3 % [facility] Plt 257 150 - 400 K/cumm [facility] MPV 10.7 9.1 - 12.3 fL [facility] RBC 4.74 4.30 - 5.80 M/cumm [facility] MCV 81.9 81.3 - 96.4 fL [facility] MCH 27.6 27.1 - 33.3 pg [facility] MCHC 33.8 32.3 - 35.7 g/dL [facility] RDW CV 13.1 11.1 - 14.9 % [facility] RDW SD 39.0 35.7 - 48.1 fL [facility] NRBC abs 0.00 0.00 - 0.01 K/cumm [facility] Blood 07/05/2022 4:27 PM CDT 07/05/2022 6:46 PM CDT Antoinette GANNON LAB BLOOD ORDERABLES Final Result Performing Organization Address [facility]/ZIP Co de Phone Number [facility] [place] [address] * (ABNORMAL) HIV-1 RNA PCR, quantitative (07/05/2022 4:21 PM CDT) [facility] HIV-1 RNA Detected( A) [facility] Comment: The quantifiable range of this assay is 20 copies/mL to 10,000,000 copies/mL (1.30 log copies/mL to 7.00 log copies/mL). ??Testing was performed by the NIELS 6800 HIV-1 Test([employer] Testing performed at [facility] Current Interpretive Data was last revised on 2021. HIV-1 RNA, copies/mL 53 copies/mL [facility] HIV-1 RNA, log 1.73 log cps/mL [facility] Blood 07/05/2022 4:21 PM CDT 07/05/2022 7:01 PM CDT Antoinette GANNON LAB MICROBIOLOGY - GENERAL ORDERABLES Final Result Performing Organization Address City/[facility]/ZIP Co de Phone Number [facility] [place] [address] documented in this encounter Visit Diagnoses Diagnosis HIV infection, unspecified symptom status (HCC)- Primary On highly active antiretroviral therapy (HAART) Routine screening for STI (sexually transmitted infection) Screening examination for venereal disease Sleep apnea, unspecified type documented in this encounter Care Teams Wildlife Biologist Relationship Specialty Start Date End Date Gucci Vilchis MD PCP - General 04/16/17 08/08/22 documented as of this encounter
--- OUTSIDE RECORDS SUMMARY | 2024-11-22 16:14 | XMS_ITS | Encounter Summary ---
Author Organization [facility] Address [address] [facility] [address] [place] [address] Phone Care Team Providers Care Timber Incisor Operator Name Role Phone Gucci Vilchis MD Primary Care Provider +1 [phone] Reason for Visit * Reason Comments Follow-up HIV Positive/AIDS Encounter Details Date Type Department Care Team (Latest Contact Info) Description 10/04/2021 10:40 AM WORKERS' COMPENSATION COMMISSIONER Office Visit [facility] Infectious Diseases [address] [place] [address] [address] [place] [address] Antoinette Riley PA [address] [address] HIV disease (CMS/HCC) (HCC) (Primary Dx); On highly active antiretroviral therapy (HAART); Routine screening for STI (sexually transmitted infection); Allergy, subsequent encounter; Colon cancer screening Social History Tobacco Use Types Packs/Day Years Used Date Smoking Tobacco: Never Smokeless Tobacco: Never Sex and Gender Information Value Date Recorded Sex Assigned at Not on file Legal Sex Male 7:55 PM WORKERS' COMPENSATION COMMISSIONER Gender Identity Not on file Sexual Orientation Not on file documented as of this encounter Last Filed Vital Signs Vital Sign Reading Time Taken Comments Blood Pressure 113/79 10/04/2021 10:51 AM WORKERS' COMPENSATION COMMISSIONER Pulse 76 10/04/2021 10:51 AM WORKERS' COMPENSATION COMMISSIONER Temperature 36.7 ??C (98 ??F) 10/04/2021 10: 51 AM WORKERS' COMPENSATION COMMISSIONER Respiratory Rate - - Oxygen Saturation - - Inhaled Oxygen Concentration - - Weight 101.2 kg (223 lb 1.6 oz) 021 10:51 AM WORKERS' COMPENSATION COMMISSIONER Height 182.9 cm (6') 10/04/2021 10:51 AM WORKERS' COMPENSATION COMMISSIONER Body Mass Index 30.26 10/04/2021 10:51 AM WORKERS' COMPENSATION COMMISSIONER documented in this encounter Ordered Prescriptions Prescription Sig Dispense Quantity Refills Last Filled Start Date End Date flunisolide (NASALIDE) 25 mcg (0.025 %) spray,non-aerosolIn dications:Allergy, subsequent encounter Administer 2 sprays into each nostril 2 (two) times a day 25 mL 3 10/05/2021 COVID-19 mRNA,[id number] (Pfizer COVID-19 Vaccine, EUA,) 30 mcg/0.3 mL [...] daily 30 tablet 5 10/04/2021 3 COVID-19 mRNA,[id number] (Pfizer COVID-19 Vaccine, EUA,) 30 mcg/0.3 mL [...] completed 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 He was extremely??busy??dueto COVID.??CD4 = 242 [...] ??? cetirizine (ZyrTEC) 10 mg tablet ??? uptbgjrjy-pkoq-bjwwf-tenof ala (Symtuza) [phone] mg tablet ??? dolutegravir (TIVICAY) 50 mg [...] trachomatis rRNA Negative for: Neisseria gonorrhoeae rRNA [id number] NOT DETECTED 12/31/2012 [id number] NOT DETECTED 12/31/2012 [id number] NOT DETECTED 11/25/2013 [id number] NOT DETECTED 11/25/2013 No results found for: TRICHOMONU, TRICHOMONAS ANNUAL LABS AND SCREENING -TB SCREENING Lab Results Component Value Date IFNGAMMAREL Negative 07/05/2018 [id number] See Comment 08/16/2016 PPD Negative 10/29/2020 -LIPIDS [...] PAP No results found for: HIRSKHPVRNA, HPVG16, [id number], KUHYMOAJ1Y0 -PROSTATE CANCER SCREENING IF HIGH RISK Lab Results Component Value Date PSA 0.80 06/28/2021 BASELINE SCREENING -HEPATITIS A IMMUNITY STATUS Lab Results Component Value Date HAV Positive (A) 08/16/2016 -HEPATITIS B IMMUNITY STATUS Lab Results Component Value Date HEPBSAB Positive 08/16/2016 HEPBSAB 384 08/16/2016 -TOXOPLASMA IMMUNITY STATUS Lab Results Component Value Date TOXOIGG Negative 12/05/2018 [id number] < OR = 0.90 11/25/2013 -CMV IMMUNITY STATUS No results found for: CMVIGG -G6PD LEVEL (NORMAL >4.6) Lab Results Component Value Date G6PD Normal 08/16/2016 -[id number] STATUS Lab Results Component Value Date [id number] Negative 11/25/2013 -COLONOSCOPY- needs referral Assessment/Plan This??is [...] Assessment & Plan: 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 SANTOS May. ERS' COMPENSATION COMMISSIONER documented in this encounter Miscellaneous Notes * Assessment & Plan Note - Antoinette Riley PA - 10/06/2021 8:04 PM WORKERS' COMPENSATION COMMISSIONER Associated Problem(s): On highly active antiretroviral therapy (HAART) Routine lab monitoring on skilled nursing HIV meds to assess for drug toxicity and efficacy. ERS' COMPENSATION COMMISSIONER * Assessment & Plan Note - Antoinette Riley PA - 10/06/2021 8:03 PM WORKERS' COMPENSATION COMMISSIONER Associated Problem(s): HIV infection (HCC) Continue Symtuza and Tivicay 100% adherence encouraged to maintain viral suppression and prevent resistance. Undetectable = untransmittable. Counseling for risk reduction, adherence and pre-conception provided. ERS' COMPENSATION COMMISSIONER documented in this encounter Plan of Treatment Not on file documented as of this encounter Procedures Procedure Name Priority Date/Time Associated Diagnosis Comments GLUCOSE, RANDOM (OUTREACH) Routine 10/04/2021 11:44 AM WORKERS' COMPENSATION COMMISSIONER HIV disease (CMS/HCC) (HCC) On highly active antiretroviral therapy (HAART) EGFR Routine 10/04/2021 11:44 AM WORKERS' COMPENSATION COMMISSIONER HIV disease (CMS/HCC) (HCC) On highly active antiretroviral therapy (HAART) DIFFERENTIAL AUTO Routine 10/04/2021 11: 44 AM WORKERS' COMPENSATION COMMISSIONER HIV disease (CMS/HCC) (HCC) On highly active antiretroviral therapy (HAART) COMPREHENSIVE METABOLIC PANEL WITHOUT GLUCOSE (OUTREACH) Routine 10/04/2021 11:44 AM WORKERS' COMPENSATION COMMISSIONER HIV disease (CMS/HCC) (HCC) On highly active antiretroviral therapy (HAART) COMPREHENSIVE METABOLIC PANEL (OUTREACH) Routine 10/04/2021 11:44 AM WORKERS' COMPENSATION COMMISSIONER HIV disease (CMS/HCC) (HCC) On highly active antiretroviral therapy (HAART) CBC WITH AUTO DIFFERENTIAL Routine 10/04/2021 11:44 AM WORKERS' COMPENSATION COMMISSIONER HIV disease (CMS/HCC) (HCC) On highly active antiretroviral therapy (HAART) T-HELPER CELLS (CD4) COUNT Routine 10/04/2021 11:44 AM WORKERS' COMPENSATION COMMISSIONER HIV disease (CMS/HCC) (HCC) On highly active antiretroviral therapy (HAART) documented in this encounter Results * eGFR (10/04/2021 11:44 AM WORKERS' COMPENSATION COMMISSIONER) eGFR See Comment 90 - 130 [facility] Comment: Credited, mislabeled, invalid result. Per Lennie [...] reviewed 2020 Blood 10/04/2021 11:4 4 AM WORKERS' COMPENSATION COMMISSIONER 10/04/2021 5:49 PM WORKERS' COMPENSATION COMMISSIONER Antoinette GANNON LAB BLOOD ORDERABLES Edite d Result - Final Performing Organization Address City/State/[facility] Co de Phone Number [facility] Department [place] [address] * Differential, auto (10/04/2021 11:44 AM WORKERS' COMPENSATION COMMISSIONER) Neutrophil abs 1.9 1.7 - 6.5 K/cumm [facility] Imm gran abs 0.0 0.0 - 0.1 K/cumm [facility] Lymphocyte abs 2.2 0.8 - 3.3 K/cumm [facility] Monocyte abs 0.5 0.2 - 0.8 K/cumm [facility] Eosinophil abs 0.3 0.0 - 0.5 K/cumm [facility] Basophil abs 0.0 0.0 - 0.1 K/cumm [facility] Neutrophil pct 39.1 % [facility] Comment: Interpretive Data Percent cell count reference ranges are not reported, since discordance with absolute values may lead to misinterpretation of CBC data. Current Interpretive Data was last revised on 2018. Imm gran pct 0.4 % [facility] Comment: Interpretive Data Percent cell count reference ranges are not reported, since discordance with absolute values may lead to misinterpretation of CBC data. Current Interpretive Data was last revised on 2018. Lymphocyte pct 44.2 % [facility] Comment: Interpretive Data Percent cell count reference ranges are not reported, since discordance with absolute values may lead to misinterpretation of CBC data. Current Interpretive Data was last revised on 2018. Monocyte pct 9.3 % [facility] Comment: Interpretive Data Percent cell count reference ranges are not reported, since discordance with absolute values may lead to misinterpretation of CBC data. Current Interpretive Data was last revised on 2018. Eosinophil pct 6.2 % [facility] Comment: Interpretive Data Percent cell count reference ranges are not reported, since discordance with absolute values may lead to misinterpretation of CBC data. Current Interpretive Data was last revised on 2018. Basophil pct 0.8 % [facility] Comment: Interpretive Data Percent cell count reference ranges are not reported, since discordance with absolute values may lead to misinterpretation of CBC data. Current Interpretive Data was last revised on 2018. Blood 10/04/2021 11:4 4 AM WORKERS' COMPENSATION COMMISSIONER 10/04/2021 5:44 PM WORKERS' COMPENSATION COMMISSIONER us Antoinette GANNON LAB BLOOD ORDERABLES Final Result [facility] Department [place] [address] * Glucose, random (Outreach) (10/04/2021 11:44 AM WORKERS' COMPENSATION COMMISSIONER) Glucose See Comment 70 - 199 mg/dL [...] revised 2017. Blood 10/04/2021 11:4 4 AM WORKERS' COMPENSATION COMMISSIONER 10/04/2021 5:44 PM WORKERS' COMPENSATION COMMISSIONER Antoinette GANNON LAB BLOOD ORDERABLES Edite d Result - Final [facility] Department [place] [address] * Comprehensive metabolic panel, without glucose (Outreach) (10/04/2021 11:44 AM WORKERS' COMPENSATION COMMISSIONER) Sodium See Comment 135 - 145 mmol/L [facility] Comment:Credited, mislabeled , invalid result. Per Lennie Matchingtouch. Potassium, pl See Comment 3.3 - 4.9 mmol/L [facility] Comment:Credited, mislabeled , invalid result. Per Lennie Matching[facility]. Chloride See Comment 97 - 110 mmol/L [facility] Comment:Credited, mislabeled , invalid result. Per Lennie Matchingtouch. CO2 See Comment 22 - 32 mmol/L [facility] Comment:Credited, mislabeled , invalid result. Per Lennie Matchingtouch. Anion gap See Comment 2 - 15 mmol/L [facility] Comment:Credited, mislabeled , invalid result. Per Lennie Matching[facility]. BUN See Comment 8 - 25 mg/dL [facility] Comment:Credited, mislabeled , invalid result. Per Lennie Matchingtouch. Creatinine See Comment 0.80 - 1.30 mg/dL [facility] Comment:Credited, mislabeled , invalid result. Per Lennie Matchingtouch. Calcium See Comment 8.5 - 10.3 mg/dL [facility] Comment:Credited, mislabeled , invalid result. Per Lennie Matchingtouch. Protein, pl See Comment 6.5 - 8.5 g/dL [facility] Comment:Credited, mislabeled , invalid result. Per Lennie Matchingtouch. Albumin See Comment 3.5 - 5.0 g/dL [facility] Comment:Credited, mislabeled , invalid result. Per Lennie Matchingtouch. Bilirubin, total See Comment 0.1 - 1.2 mg/dL [facility] Comment:Credited, mislabeled , invalid result. Per Lennie Matchingtouch. Alk phos See Comment 40 - 130 Units/L [facility] Comment:Credited, mislabeled , invalid result. Per Lennie Matchingtouch. AST See Comment 10 - 50 Units/L [facility] Comment:Credited, mislabeled , invalid result. Per Lennie Matching[facility]. ALT See Comment 7 - 55 Units/L [facility] Comment:Credited, mislabeled , invalid result. Per Lennie Matchingtouch. Blood 10/04/2021 11:4 4 AM WORKERS' COMPENSATION COMMISSIONER 10/04/2021 5:44 PM WORKERS' COMPENSATION COMMISSIONER Anotinette GANNON LAB BLOOD ORDERABLES Edite d Result - Final [facility] Department [place] [address] * T-helper cells (CD4) count (10/04/2021 11:44 AM WORKERS' COMPENSATION COMMISSIONER) CD4 pct See Comment 31 - 64 % [facility] Comment:Credited, mislabeled , invalid result CD4 Absolute See Comment 365 - 1294 cells/mcL [facility] Comment:Credited, mislabeled , invalid result Blood 10/04/2021 11:4 4 AM WORKERS' COMPENSATION COMMISSIONER 10/04/2021 5:44 PM WORKERS' COMPENSATION COMMISSIONER Antoinette GANNON LAB BLOOD ORDERABLES Edite d Result - Final Performing Organization Address [facility] Co de Phone Number [facility] Department [place] [address] * (ABNORMAL) CBC with auto differential (10/04/2021 11:44 AM WORKERS' COMPENSATION COMMISSIONER) WBC 4.9 3.8 - 9.9 K/cumm [facility] Hgb 12.8(L) 13.0 - 17.5 g/dL [facility] Hct 39.7 38.9 - 50.3 % [facility] Plt 304 150 - 400 K/cumm [facility] MPV 10.3 9.1 - 12.3 fL [facility] RBC 4.64 4.30 - 5.80 M/cumm [facility] MCV 85.6 81.3 - 96.4 fL [facility] MCH 27.6 27.1 - 33.3 pg [facility] MCHC 32.2(L) 32.3 - 35.7 g/dL [facility] RDW CV 13.8 11.1 - 14.9 % [facility] RDW SD 42.9 35.7 - 48.1 fL [facility] NRBC abs 0.00 0.00 - 0.01 K/cumm [facility] Blood 10/04/2021 11:4 4 AM WORKERS' COMPENSATION COMMISSIONER 10/04/2021 5:44 PM WORKERS' COMPENSATION COMMISSIONER Antoinette GANNON LAB BLOOD ORDERABLES Final Result Performing Organization Address [facility] Co de Phone Number [facility] Department [place] [address] documented in this encounter Visit Diagnoses Diagnosis [...] each nostril. Formulary change 10/04/2021 10/05/2021 COVID-19 mRNA,[id number] (Box Jump COVID-19 Vaccine, EUA,) 30 mcg/0.3 mL suspension for reconstitutionIndicatio ns:COVID-19 vaccination Inject 0.3 mL into the muscle as instructed once for 1 dose Error 10/04/2021 10/05/2021 documented as of this encounter Orders Case Request Count Last Ordered Date First Orde red Date GI DIRECT ACCESS CASE REQUEST 1 10/06/2021 documented in this encounter Care Teams Timber Incisor Operator Relationship Specialty Start Date End Date Gucci Vilchis MD PCP - General 04/16/17 08/08/22 [facility] Rigging Foreman 10/30/18 12/08/21 documented as of this encounter
--- OUTSIDE RECORDS SUMMARY | 2024-11-22 16:14 | XMS_ITS | Encounter Summary ---
Author Organization [facility] Healthcare Address [address] [place] [address] Care Team Providers Care Label Operator Name Role Phone Gucci Vilchis MD Primary Care Provider [phone] [phone] Encounter Details Date Type Department Care Team (Late st Contact Info) Description 01/24/2022 2:21 PM CDT Anesthesia Event [facility] Digestive [facility] [place] [address] [place] [address] Tracy Valencia MD [address] [facility] [address] [facility] [id number] [place] [address] Francy Coon CRNA [address] [facility] [id number] [place] [address] Anesthesia Record Procedure Summary Procedure Name Responsible [...] 01/24/22; Removal Time: 1601 01/24/22 1553 by Francy Coon CRNA 01/24/22 1601 by Francy Coon [...] on file Legal Sex Male 7:55 PM TELEPHONE ORDER DISPATCHER Gender Identity Not on file Sexual Orientation Not on file documented as of this encounter OR Notes * Anesthesia Postprocedure Evaluation - Tracy Valencia MD - 01/24/2022 5:10 PM CDT Patient: Dashawn Solitario Procedure Summary Date: 01/24/22 Room / Location: [facility] ROOM 3 / [facility] Anesthesia Start: 1421 Anesthesia Stop: [...] difficulty: limited mandibular protusion Staff: Placed by: RESP THERAPIST: Francy Coon CRNA Emergent airway documentation: Risks [...] attempt MAC3. Grade 3 view. 2nd attempt [id number] view with CMAC 4 video laryngoscope. ETT [...] Past Surgical History: Procedure Laterality Date ??? [place] REMOVAL ANAL FISTULA,SUBCUTANEOUS Anal Fistulotomy (Subcutaneous) - 1998 (Added by TW Conv) No Known Allergies Taking? Last Dose Start Date End Date Provider cetirizine (ZyrTEC) 10 mg tablet Past Week 10/04/21 -- Antoinette Riley PA Take 1 tablet (10 mg total) by mouth daily ktehbzxjv-uejr-lovua-tenof ala (Symtuza) [phone] mg tablet Past Week 12/27/21 -- Antoinette [...] Medication protocol when under care of a RESP THERAPIST Planned anesthesia: MAC Induction: Induction: intravenous. Informed Consent: Discussed plan with RESP THERAPIST. Anesthesia plan and risks discussed with patient. [...] Procedure Name Priority Date/Time Associated Diagnosis Comments WV AN PROCEDURE PLACEHOLDER Routine 01/24/2022 3:51 PM CDT WV AN ELECTIVE ENDOTRACHEAL AIRWAY Routine 01/24/2022 3:51 PM CDT documented in this encounter Results * WV AN ELECTIVE ENDOTRACHEAL AIRWAY, WV AN PROCEDURE PLACEHOLDER (01/24/2022 3:51 PM CDT) [...] difficulty: limited mandibular protusion Staff: Placed by: RESP THERAPIST: Francy Coon CRNA Emergent airway documentation: Risks [...] mg documented in this encounter Care Teams Label Operator Relationship Specialty Start Date End Date Gucci Vilchis MD PCP - General 04/16/17 08/08/22 documented as of this encounter
--- OUTSIDE RECORDS SUMMARY | 2024-11-22 16:14 | XMS_ITS | Encounter Summary ---
Author Organization [facility] Healthcare Address [address] [place] [address] Care Team Providers Care Pipe Wrapping Machine Operator Name Role Phone Antoinette Riley Primary Care Provider [phone]- [phone] Reason for Referral * Sleep Medicine (Routine) - Closed Specialty Diagnoses / Procedures Referred By Markell tong Referred To Contact Diagnoses Other sleep apnea Psychophysiological insomnia Fatigue, unspecified type Nonsmoker Family history of sleep apnea BMI 30.0-30.9,adult Procedures Portable/Home Sleep Study Criselda Colon MD Phone: tel: fax: [facility] [address] [place] [address] Phone: tel: fax: Referral ID Status Reason Start Date Expiration Date Visits Re quested Visits Authorized [id number] Closed 08/09/2022 09/08/2023 1 1 Reason for Visit * Sleep Medicine (Routine) - Closed Specialty Diagnoses / Procedures Referred By Contrenaldo tong Referred To Contact Diagnoses Other sleep apnea Psychophysiological insomnia Fatigue, unspecified type Nonsmoker Family history of sleep apnea BMI 30.0-30.9,adult Procedures Portable/Home Sleep Study Criselda Colon MD Phone: tel: fax: [facility] [address] [place] [address] Phone: tel: fax: Referral ID Status Reason Start Date Expiration Date Visits Re quested Visits Authorized [id number] Closed 08/09/2022 09/08/2023 1 1 Encounter Details Date Type Department Care Team (Latest Contact Info) Description 09/04/2022 2:55 PM CDT - 09/04/2022 11:59 PM CDT Hospital Encounter [facility] [address] [place] [id number] Other sleep apnea; Psychophysiological insomnia; Fatigue, unspecified [...] on file Legal Sex Male 7:55 PM SEAM FELLER Gender Identity Not on file Sexual Orientation Not on file documented as of this encounter Medications at Time of Discharge flunisolide (NASALIDE) 25 mcg (0.025 %) spray,non-aeroso lIndications:All ergy, subsequent encounter Administer 2 sprays into each nostril 2 (two) times a day 25 mL 3 10/05/2021 cetirizine (ZyrTEC) 10 mg tabletIndication s:HIV disease (CMS/HCC) ([facility]),Allergy, subsequent encounter Take 1 tablet (10 mg total) by mouth daily 30 tablet 5 10/04/2021 3 lnckwvbfs-kzsu-w mtri-tenof ala (Symtuza) [phone] mg tabletIndication s:HIV disease (CMS/HCC) ([facility]) Take 1 tablet by mouth daily [...] MD SLEEP CENTER ORDERABLES Fin al Result [facility] [address] [place], [place] [address] documented in this encounter Visit Diagnoses Diagnosis Other sleep apnea Psychophysiological insomnia Persistent disorder of initiating or maintaining sleep Fatigue, unspecified type Nonsmoker Other specified conditions influencing health status Family history of sleep apnea Family history of other condition BMI 30.0-30.9,adult documented in this encounter Care Teams Pipe Wrapping Machine Operator Relationship Specialty Start Date End Date Antoinette Riley PA PCP - General Infectious Diseases 08/09/22 documented as of this encounter
--- OUTSIDE RECORDS SUMMARY | 2024-11-22 16:15 | XMS_ITS | Encounter Summary ---
Author Organization [facility] Healthcare Address [address] [place] [address] Care Team Providers Care Glycerin Operator Name Role Phone Gucci Vilchis MD Primary Care Provider [phone] Encounter Details Date Type Department Care Team (Latest Contact Info) Description 08/14/2017 11:12 AM CDT - 08/14/2017 11:59 PM CDT Hospital Encounter [facility] INTERIM [phone] Fanny Reyes, DIPLOMA MAKER [address] [place] [address] Discharge Disposition: Discharge to home or self care Social History Tobacco Use Types Packs/Day Years Used Date Smoking Tobacco: Never Assessed Sex and Gender Information Value Date Recorded Sex Assigned at Not on file 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 STORE AT ROOMTEMPERATURE . 08/16/2016 8 atksrlt-zra-lhdk i-tenof ALAFEN (GENVOYA) [phone] mg tablet TAKE ONE TABLET BY MOUTH [...] AM CDT 08/14/2017 1:12 PM CDT Jodi aMy MD LAB MICROBIOLOGY - GENERA L ORDERABLES Final Result Performing Organization Address City/[facility]/ZIP Co de Phone Number [facility] Department of [employer] [address] * N. gonorrhoeae/C. trachomatis amplification test (08/14/2017 11:19 AM CDT) Report Final Report: Negative for: ??Chlamydia trachomatis rRNA Negative for: ??Neisseria gonorrhoeae rRNA [facility] Urine 08/14/2017 11:1 9 AM CDT 08/14/2017 1:47 PM CDT Narrative [facility] - 08/15/2017 3:05 PM CDT Testing performed by the [employer] APTIMA Combo 2 Assay. This nucleic acid amplification test (NAAT) detects ribosomal RNA (rRNA) from Chlamydia trachomatis and Neisseria gonorrhoeae using target capture,and Heel Scorer-Mediated Amplification (TMA). This test is approved by the [place] Food and Drug Administration for endocervical, vaginal, and male urethral swab specimens, in addition to male and female urine specimens. The performance characteristics for these specimen types have been verified by the [facility].The performance characteristics of this assay for pharyngeal and rectal specimens collected from cervical swab collection devices have been validated and verified by the [facility]. Verification studies support a [...] L ORDERABLES Final Result Performing Organization Address [facility] Co de Phone Number [facility] Department of [employer] [place] [address] * HIV-1 RNA, quantitative, PCR (08/14/2017 11:19 AM CDT) [facility] HIV-1 RNA Detected [facility] Comment: Interpretive Data: The quantifiable range of this assay is 20 copies/mL to 10,000,000 copies/mL (1.30 log copies/mL to 7.00 log copies/mL). ??Testing was performed by the [employer] AmpliPrep/NIELS TaqMan HIV-1 Test version 2.0 ([employer] Testing performed at [facility] Current Interpretive Data was last revised on 2015. HIV-1 RNA, copies/mL <20 copies/mL [facility] HIV-1 RNA, log <1.30 log cps/mL [facility] Blood specimen (specimen) 08/14/2017 11:19 AM CDT 08/15/2017 7:33 AM CDT us Jodi May MD LAB MICROBIOLOGY - GENERA L ORDERABLES Final Result Performing Organization Address City/[facility]/ZIP Co de Phone Number [facility] [place] [address] * (ABNORMAL) T-helper cells (CD4) count (08/14/2017 11:19 AM CDT) [facility] CD4 pct 23(L) 31 - 64 % [facility] CD4 Absolute 488 365 - 1,294 cells/mcL [facility] Blood specimen (specimen) 08/14/2017 11:19 AM CDT 08/14/2017 1:03 PM CDT us Jodi May MD LAB BLOOD ORDERABLES Kareen l Result [facility] [place] [address] * RPR, serum (08/14/2017 11:19 AM CDT) [facility] RPR Nonreactive Nonreactive [facility] Blood specimen (specimen) 08/14/2017 11:19 AM CDT 08/14/2017 1:12 PM CDT us Jodi May MD LAB MICROBIOLOGY - GENERA L ORDERABLES Final Result Performing Organization Address City/[facility]/ZIP Co de Phone Number [facility] Department [place] [address] * CS GLUCOSE (08/14/2017 11:19 AM CDT) Pathologist [facility] Glucose 87 70 - 199 mg/dL [facility] Blood specimen (specimen) 08/14/2017 11:19 AM CDT 08/14/2017 1:12 PM CDT Jodi May MD LAB BLOOD ORDERABLES Kareen l Result Performing Organization Address [facility] de Phone Number [facility] [place] [address] * Comprehensive metabolic panel without glucose (outreach) (08/14/2017 11:19 AM CDT) Sodium 139 135 - 145 mmol/L [facility] Potassium, pl 4.1 3.3 - 4.9 mmol/L [facility] Chloride 104 97 - 110 mmol/L [facility] CO2 25 22 - 32 mmol/L [facility] Anion gap 10 2 - 15 mmol/L [facility] BUN 11 8 - 25 mg/dL [facility] Creatinine 1.05 0.80 - 1.30 mg/dL [facility] Calcium 9.7 8.5 - 10.3 mg/dL [facility] Protein, pl 7.8 6.5 - 8.5 g/dL [facility] Albumin 4.4 3.5 - 5.0 g/dL [facility] Bilirubin, total 0.3 0.1 - 1.2 mg/dL [facility] Alk phos 59 40 - 130 Units/L [facility] AST 29 10 - 50 Units/L [facility] ALT 33 7 - 55 Units/L [facility] Blood specimen (specimen) 08/14/2017 11:19 AM CDT 08/14/2017 1:12 PM CDT Jodi May MD LAB BLOOD ORDERABLES Kareen ridley Result Performing Organization Address [facility] Co de Phone Number [facility] [place] [address] * (ABNORMAL) Differential, auto (08/14/2017 11:19 AM CDT) Neutrophil pct 25.9 % [facility] Imm gran pct 0.0 % [facility] Lymphocyte pct 58.1 % [facility] Monocyte pct 9.4 % [facility] Eosinophil pct 5.5 % [facility] Basophil pct 1.1 % [facility] Neutrophil abs 1.13(L) 1.70 - 6.50 K/cumm [facility] Imm gran abs 0.00 0.00 - 0.10 K/cumm [facility] Lymphocyte abs 2.54 0.80 - 3.30 K/cumm [facility] Monocyte abs 0.41 0.20 - 0.80 K/cumm [facility] Eosinophil abs 0.24 0.00 - 0.50 K/cumm [facility] Basophil abs 0.05 0.00 - 0.10 K/cumm [facility] Blood specimen (specimen) 08/14/2017 11:19 AM CDT 08/14/2017 1:12 PM CDT Jodi May MD LAB BLOOD ORDERABLES Kareen ridley Result Performing Organization Address City/[facility] Co de Phone Number [facility] [place] [address] * (ABNORMAL) CBC with auto differential (08/14/2017 11:19 AM CDT) WBC 4.37 3.80 - 9.90 K/cumm [facility] RBC 4.34 4.30 - 5.80 M/cumm [facility] Hgb 12.4(L) 13.0 - 17.5 g/dL [facility] Hct 36.9(L) 38.9 - 50.3 % [facility] MCV 85.0 81.3 - 96.4 fL [facility] MCH 28.6 27.1 - 33.3 pg [facility] MCHC 33.6 32.3 - 35.7 g/dL [facility] RDW CV 14.0 11.1 - 14.9 % [facility] RDW SD 43.9 35.7 - 48.1 fL [facility] Plt 209 150 - 400 K/cumm [facility] MPV 11.0 9.1 - 12.3 fL [facility] NRBC 0.0 0.0 - 0.2 % [facility] NRBC abs 0.00 0.00 - 0.01 K/cumm [facility] Blood specimen (specimen) 08/14/2017 11:19 AM CDT 08/14/2017 1:12 PM CDT us Jodi May MD LAB BLOOD ORDERABLES Kareen ridley Result [facility] [place] [address] documented in this encounter Visit Diagnoses Not on filedocumented in this encounter Care Teams Glycerin Operator Relationship Specialty Start Date End Date Gucci Vilchis MD PCP - General 04/16/17 08/08/22 documented as of this encounter
--- OUTSIDE RECORDS SUMMARY | 2024-11-22 16:15 | XMS_ITS | Encounter Summary ---
Author Organization [facility] Facility Care Team Providers Care Pediatric Physiatrist Name Role Phone Unavailable Primary Care Provider Unavailabl e Encounter Details Date Type Department Care Team (Latest Contact Info) Description 03/15/2016 - 03/15/2016 11:59 PM CDT Hospital Encounter [facility] Tova Byrd MD [address] [facility] [address] [place] [address] Encounter for general adult medical examination without abnormal findings; Human immunodeficiency virus (HIV) disease (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 Gender Identity Not on file Sexual Orientation [...] Blood lymphocyte CD4 (03/15/2016 11:20 AM CDT) [facility] CD4 % 28(L) 31 - 64 % HISTORICAL RESULTS CD4 cells 607 365 - 1294 cells/mcl HISTORICAL RESULTS Leukocyte, NOS 03/15/2016 11 :20 AM CDT Tova Zayas MD LAB BLOOD ORDERABLES Final Result HISTORICAL RESULTS * Plasma comprehensive metabolic panel (03/15/2016 11:20 AM CDT) [facility] Sodium 140 135 - 145 mmol/L HISTORICAL [...] virus-1 (HIV-1) RNA (03/15/2016 11:20 AM CDT) [facility] HIV-1 RNA Not Detected [facility] RESULTS Comment: Interpretive Data: The quantifiable range of this assay is 20 copies/mL to 10,000,000 copies/mL (1.30 log copies/mL to 7.00 log copies/mL). ??Testing was performed by the [employer] AmpliPrep/NIELS TaqMan HIV-1 Test version 2.0 ([employer] Testing performed at [facility] Current Interpretive Data was last revised on 2015. Plasma 03/15/2016 11:2 0 AM CDT Tova Zayas MD LAB BLOOD ORDERABLES Final Result Performing Organization Address [facility] de Phone Number HISTORICAL RESULTS * Serum glucose (03/15/2016 11:20 AM CDT) Glucose 92 70 - 199 mg/dl HISTORICAL RESULTS Serum 03/15/2016 11:2 0 AM CDT Tova Zayas MD LAB BLOOD ORDERABLES Final Result Performing Organization Address [facility] de Phone Number HISTORICAL RESULTS * (ABNORMAL) [...] specimen (specimen) 03/15/2016 11:20 AM CDT Result [facility] Tova Zayas MD LAB BLOOD ORDERABLES Final [...] specimen (specimen) 03/15/2016 11:20 AM CDT Result [facility] Tova Zayas MD LAB BLOOD ORDERABLES Final Result Performing Organization Address City/[facility] Co de Phone Number HISTORICAL RESULTS * DISCHARGE LABORATORY CUMULATIVE REPORT (03/15/2016) Narrative 03/15/2016 Ordered by an unspecified provider. Result [facility] Historical Provider LAB BLOOD ORDERABLES Kareen l Result documented in this encounter Visit Diagnoses Diagnosis Encounter for general adult medical examination without abnormal findings Human immunodeficiency virus (HIV) disease (CMS/HCC) (HCC) Human immunodeficiency virus [HIV] disease documented in this encounter
--- OUTSIDE RECORDS SUMMARY | 2024-11-22 16:15 | XMS_ITS | Encounter Summary ---
Author Organization [facility] Address [address] [facility] [address] [place] [address] Phone Care Team Providers Care Glass Cleaner Name Role Phone Gucci Vilchis MD Primary Care Provider [phone] Encounter Details Date Type Department Care Team (Late st Contact Info) Description 10/31/2019 Telephone [facility] [address] [place] [phone] Flora Humphries Social History Tobacco Use Types Packs/Day Years Used Date Smoking Tobacco: Never Smokeless Tobacco: Never Sex and Gender Information Value Date Recorded Sex Assigned at Not on file 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 ER ASSEMBLER documented in this encounter Plan of Treatment Not on file documented as of this encounter Visit Diagnoses Not on filedocumented in this encounter Care Teams Glass Cleaner Relationship Specialty Start Date End Date Gucci Vilchis MD PCP - General 04/16/17 08/08/22 [facility] Operator 10/30/18 12/08/21 documented as of this encounter
--- OUTSIDE RECORDS SUMMARY | 2024-11-22 16:15 | XMS_ITS | Encounter Summary ---
Author Organization [facility] Healthcare Address [address] [place] [address] Care Team Providers Care Secretary To Board Of Commissioners Name Role Phone Gucci Vilchis MD Primary Care Provider [phone] Encounter Details Date Type Department Care Team (Latest Contact Info) Description 04/16/2017 10:49 AM CDT - 04/16/2017 11:59 PM CDT Hospital Encounter [facility] INTERIM [phone] Eugenio Madera MD [address] [place] [address] Discharge Disposition: Discharge to home or self care Social History Tobacco Use Types Packs/Day Years Used Date Smoking Tobacco: Never Assessed Sex and Gender Information Value Date Recorded Sex Assigned at Not on file 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 STORE AT ROOMTEMPERATURE . 08/16/2016 8 mrctxse-mqj-[id number] i-tenof ALAFEN (GENVOYA) [phone] mg tablet TAKE ONE TABLET BY MOUTH [...] Tab. JUS JOHNSON Comment:Testing performed by : [facility], [place] [address]. Blood specimen (specimen) 04/16/2017 10:58 AM CDT 04/17/2017 7:38 AM CDT Eugenio Madera MD LAB BLOOD ORDERABLES F inal Result Performing Organization Address [facility] Co de Phone Number [facility] [place] [address] * Interferon Gamma Release Assay TB (04/16/2017 10:58 AM CDT) [facility] IFN-Gamma Release Assay TB Negative [facility] Comment: See separate report scanned into the Clinical Desktop Scanned Laboratory Reports Tab. Interpretive Data Testing performed by [facility], [address] [place] [address] Current Interpretive Data was last revised 2014 Blood specimen (specimen) 04/16/2017 10:58 AM CDT 04/16/2017 11:37 AM CDT Eugenio Madera MD LAB BLOOD ORDERABLES F inal Result Performing Organization Address [facility] de Phone Number [facility] [place] [address] * HIV-1 RNA, quantitative, PCR (04/16/2017 10:58 AM CDT) [facility] HIV-1 RNA Detected [facility] Comment: Interpretive Data: The quantifiable range of this assay is 20 copies/mL to 10,000,000 copies/mL (1.30 log copies/mL to 7.00 log copies/mL). ??Testing was performed by the NIELS AmpliPrep/NIELS TaqMan HIV-1 Test version 2.0 (Andrés [employer] Testing performed at [facility] Current Interpretive Data was last revised on 2015. HIV-1 RNA, copies/mL 10,269 copies/mL [facility] HIV-1 RNA, log 4.01 log cps/mL [facility] Blood specimen (specimen) 04/16/2017 10:58 AM CDT 04/17/2017 7:38 AM CDT Eugenio Madera MD LAB MICROBIOLOGY - GEN ERAL ORDERABLES Final Result Performing Organization Address [facility] de Phone Number [facility] [place] [address] * (ABNORMAL) T-helper cells (CD4) count (04/16/2017 10:58 AM CDT) CD4 pct 21(L) 31 - 64 % [facility] CD4 Absolute 367 365 - 1,294 cells/mcL [facility] Blood specimen (specimen) 04/16/2017 10:58 AM CDT 04/16/2017 11:37 AM CDT Eugenio Madera MD LAB BLOOD ORDERABLES F inal Result Performing Organization Address [facility] de Phone Number [facility] [place] [address] * Urinalysis, microscopic (04/16/2017 10:58 AM CDT) RBC, ur 2 0 - 3 /HPF [facility] WBC, ur 0 0 - 5 /HPF [facility] Bacteria, ur Negative Trace [facility] Epithelial cells, renal, ur 0 0 - 0 /HPF [facility] Urine 04/16/2017 10:5 8 AM CDT 04/16/2017 11:37 AM CDT Eugenio Madera MD LAB URINE ORDERABLES F inal Result Performing Organization Address [facility] de Phone Number [facility] [place] [address] * (ABNORMAL) Urinalysis (04/16/2017 10:58 AM CDT) Color, ur Yellow Yellow [facility] Clarity, ur Clear Clear [facility] Specific gravity, ur 1.019 1.003 - 1.030 [facility] pH, ur 5.0 5.0 - 8.0 [facility] Albumin, ur Negative Trace [facility] Glucose, ur ql Negative Negative [facility] Ketones, ur Negative Negative [facility] Bilirubin, ur Negative Negative [facility] Blood, ur 1+(A) Negative [facility] Urobilinogen, ur <2.0 <2.0 mg/dL [facility] Nitrites, ur Negative Negative [facility] Leukocyte esterase, ur 1+(A) Negative [facility] Urine 04/16/2017 10:5 8 AM CDT 04/16/2017 11:37 AM CDT Eugenio Madera MD LAB URINE ORDERABLES F inal Result [facility] [place] [address] * N. gonorrhoeae/C. trachomatis amplification test (04/16/2017 10:58 AM CDT) Report Final Report: Negative for: ??Chlamydia trachomatis rRNA Negative for: ??Neisseria gonorrhoeae rRNA [facility] Urine 04/16/2017 10:5 8 AM CDT 04/16/2017 11:57 AM CDT Narrative [facility] - 04/17/2017 3:09 PM CDT Testing performed by the Gen-Probe [employer] APTIMA Combo 2 Assay. This nucleic acid amplification test (NAAT) detects ribosomal RNA (rRNA) from Chlamydia trachomatis and Neisseria gonorrhoeae using target capture,and Asset Av[employer] Leader-Mediated Amplification (TMA). This test is approved by the [place] Food and Drug Administration for endocervical, vaginal, and male urethral swab specimens, in addition to male and female urine specimens. The performance characteristics for these specimen types have been verified by the [facility].The performance characteristics of this assay for pharyngeal and rectal specimens collected from cervical swab collection devices have been validated and verified by the [facility]. Verification studies support a [...] ERAL ORDERABLES Final Result Performing Organization Address [facility] Co de Phone Number [facility] [place] [address] * Urine culture (04/16/2017 10:58 AM CDT) Report Final Report: Insignificant growth based on current clinical standards. [facility] Urine 04/16/2017 10:5 8 AM CDT 04/16/2017 1:02 PM CDT Narrative [facility] - 04/17/2017 8:08 AM CDT Eugenio Madera MD LAB MICROBIOLOGY - GEN ERAL ORDERABLES Final Result Performing Organization Address [facility] Co de Phone Number [facility] [place] [address] * (ABNORMAL) Lipid panel (04/16/2017 10:58 AM CDT) Cholesterol 202(H) 30 - 200 mg/dL [facility] Comment: Interpretive Data Desirable: ?<200 mg/dL Borderline high: ??200-239 mg/dL High: ? > or = 240 mg/dL Literature Reference: National Cholesterol Education Program (NCEP) Expert Panel on Detection, Evaluation, and Treatment of High Blood Cholesterol in Adults (Adult Treatment Panel III). ??Circulation 2004; 110:227. Current interpretive data was last revised on 2015. Triglycerides 82 0 - 150 mg/dL [facility] Comment: Interpretive Data Desirable: ? < [...] dited Result - Final [facility] Department [place] [address] * Comprehensive metabolic panel without glucose (outreach) (04/16/2017 10:58 AM CDT) Sodium 141 135 - 145 mmol/L [facility] Potassium, pl 3.6 3.3 - 4.9 mmol/L [facility] Chloride 104 97 - 110 mmol/L [facility] Comment:fixed result mapping CO2 26 22 - 32 mmol/L [facility] Anion gap 11 2 - 15 mmol/L [facility] BUN 8 8 - 25 mg/dL [facility] Creatinine 0.83 0.80 - 1.30 mg/dL [facility] Calcium 9.4 8.5 - 10.3 mg/dL [facility] Protein, pl 8.1 6.5 - 8.5 g/dL [facility] Albumin 4.5 3.5 - 5.0 g/dL [facility] Bilirubin, total 0.3 0.1 - 1.2 mg/dL [facility] Alk phos 56 40 - 130 Units/L [facility] AST 21 10 - 50 Units/L [facility] ALT 20 7 - 55 Units/L [facility] Blood specimen (specimen) 04/16/2017 10:58 AM CDT 04/16/2017 11:28 AM CDT us Eugenio Madera MD LAB BLOOD ORDERABLES E dited Result - Final [facility] [place] [address] * (ABNORMAL) Differential, auto (04/16/2017 10:58 AM CDT) Neutrophil pct 31.9 % [facility] Imm gran pct 0.3 % [facility] Lymphocyte pct 55.5 % [facility] Monocyte pct 6.7 % [facility] Eosinophil pct 5.1 % [facility] Basophil pct 0.5 % [facility] Neutrophil abs 1.18(L) 1.70 - 6.50 K/cumm [facility] Imm gran abs 0.01 0.00 - 0.10 K/cumm [facility] Lymphocyte abs 2.06 0.80 - 3.30 K/cumm [facility] Monocyte abs 0.25 0.20 - 0.80 K/cumm [facility] Eosinophil abs 0.19 0.00 - 0.50 K/cumm [facility] Basophil abs 0.02 0.00 - 0.10 K/cumm [facility] Blood specimen (specimen) 04/16/2017 10:58 AM CDT 04/16/2017 11:28 AM CDT Eugenio Madera MD LAB BLOOD ORDERABLES F inal Result [facility] [place] [address] * (ABNORMAL) CBC with auto differential (04/16/2017 10:58 AM CDT) [facility] WBC 3.71(L) 3.80 - 9.90 K/cumm [facility] RBC 4.51 4.30 - 5.80 M/cumm [facility] Hgb 12.3(L) 13.0 - 17.5 g/dL [facility] Hct 36.7(L) 38.9 - 50.3 % [facility] MCV 81.4 81.3 - 96.4 fL [facility] MCH 27.3 27.1 - 33.3 pg [facility] MCHC 33.5 32.3 - 35.7 g/dL [facility] RDW CV 13.3 11.1 - 14.9 % [facility] RDW SD 39.7 35.7 - 48.1 fL [facility] Plt 208 150 - 400 K/cumm [facility] MPV 10.0 9.1 - 12.3 fL [facility] NRBC 0.0 0.0 - 0.2 % [facility] NRBC abs 0.00 0.00 - 0.01 K/cumm [facility] Blood specimen (specimen) 04/16/2017 10:58 AM CDT 04/16/2017 11:28 AM CDT Eugenio Madera MD LAB BLOOD ORDERABLES F inal Result [facility] [place] [address] * CS GLUCOSE (04/16/2017 10:58 AM CDT) Glucose 97 70 - 199 mg/dL [facility] Anatomical Region Laterality Modality Other Blood specimen (specimen) 04/16/2017 10:58 AM CDT 04/16/2017 11:28 AM CDT Eugenio Madera MD LAB BLOOD ORDERABLES F inal Result * DISCHARGE LABORATORY CUMULATIVE REPORT (04/16/2017) Provider Scanning LAB BLOOD ORDERABLES Final Res ult documented in this encounter Visit Diagnoses Not on filedocumented in this encounter Care Teams Secretary To Board Of Commissioners Relationship Specialty Start Date End Date Gucci Vilchis MD PCP - General 04/16/17 08/08/22 documented as of this encounter
--- OUTSIDE RECORDS SUMMARY | 2024-11-22 16:15 | XMS_ITS | Encounter Summary ---
Author Organization [facility] Care Team Providers Care Lands Resource Manager Name Role Phone Unavailable Primary Care Provider Unavailabl e Encounter Details Date Type Department Care Team (Latest Contact Info) Description 06/07/2011 3:45 PM CDT - 06/07/2011 9:13 PM CDT Hospital Encounter [facility] Bo Wilks MD [address] [facility] [address] [place] [address] Cellulitis and abscess of neck; Human immunodeficiency virus (HIV) disease (CMS/HCC) ([facility]); Tobacco use disorder Social History Tobacco Use Types Packs/Day Years Used Date Smoking Tobacco: Never Assessed Sex and Gender Information Value Date Recorded Sex Assigned at Not on file 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
--- OUTSIDE RECORDS SUMMARY | 2024-11-22 16:15 | XMS_ITS | Encounter Summary ---
Author Organization [facility] Care Team Providers Care Filing And Polishing Supervisor Name Role Phone Unavailable Primary Care Provider Unavailabl e Encounter Details Date Type Department Care Team (Late st Contact Info) Description 07/15/2015 - 07/15/2015 11:59 PM CDT Hospital Encounter [facility] Tova Byrd MD [address] 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 No Client Account Number and Description: Tova Zayas MD LAB BLOOD ORDERABLES Final Result Performing Organization Address [facility] de Phone Number HISTORICAL RESULTS * Blood human immunodeficiency virus (HIV) RNA viral load (07/15/2015 6:08 AM CDT) [facility] HIV, RNA viral load Undetected Undetected copies/ml HISTORICAL RESULTS Comment: Result in log copies/mL is Undetected. ADDITIONAL INFORMATION The quantification range of this assay is 20 to 10,000,000 copies/mL (1.30 log copies/mL to 7.00 log copies/mL). Testing was performed by the NIELS AmpliPrep/NIELS TaqMan HIV-1 Test version 2.0 ([employer]rés [employer] Test Performed by: [place] [address] Transit Mixer Driver: Bo Hair II, M.D., Ph.D. Blood specimen (specimen) 07/15/2015 6:08 AM CDT Narrative HISTORICAL RESULTS - 07/16/2015 1:52 PM CDT fasting Client / Account bill? No Client Account Number and Description: Tova Zayas MD LAB BLOOD ORDERABLES Final Result Performing Organization Address [facility] de Phone Number HISTORICAL RESULTS * (ABNORMAL) Serum lipid panel (07/15/2015 6:08 AM CDT) [facility] Cholesterol 212(H) 0 - 200 mg/dl HISTORICAL [...] BLOOD ORDERABLES Final Result Performing Organization Address [facility]/ZIP Co de Phone Number HISTORICAL RESULTS * [...]
--- OUTSIDE RECORDS SUMMARY | 2024-11-22 16:15 | XMS_ITS | Encounter Summary ---
Author Organization [facility] Healthcare Address [address] [place] [address] Care Team Providers Care Prototype Fabricator Name Role Phone Gucci Vilchis MD Primary Care Provider [phone] Encounter Details Date Type Department Care Team (Latest Contact Info) Description 04/16/2017 10:15 AM CDT - 04/16/2017 11:59 PM CDT Hospital Encounter [facility] INTERIM [phone] Eugenio Madera MD [address] [address] [place] [address] Discharge Disposition: Discharge to home or self care Social History Tobacco Use Types Packs/Day Years Used Date Smoking Tobacco: Never Assessed Sex and Gender Information Value Date Recorded Sex Assigned at Not on file Legal Sex Male 7:55 PM JOINER Gender Identity Not on file Sexual Orientation Not on file documented as of this encounter Medications at Time of Discharge darunavir ethanolate (PREZISTA) 800 mg tablet TAKE ONE TABLET (800 MG) BY MOUTH ONCE DAILY WITH FOOD. STORE AT ROOMTEMPERATURE . 08/16/2016 8 fyhgogl-[id number] i-tenof ALAFEN (GENVOYA) [phone] mg tablet TAKE ONE TABLET BY MOUTH [...] trachomatis rRNA Negative for: ??Neisseria gonorrhoeae rRNA [facility] Throat 04/16/2017 10:1 5 AM CDT 04/16/2017 8:25 PM CDT Narrative [facility] - 04/17/2017 3:08 PM CDT Testing performed by the Gen-Probe Tigris APTIMA Combo 2 Assay. This nucleic acid amplification test (NAAT) detects ribosomal RNA (rRNA) from Chlamydia trachomatis and Neisseria gonorrhoeae using target capture,and Carpenter Mine-Mediated Amplification (TMA). This test is approved by the [place] Food and Drug Administration for endocervical, vaginal, and male urethral swab specimens, in addition to male and female urine specimens. The performance characteristics for these specimen types have been verified by the [facility].The performance characteristics of this assay for pharyngeal and rectal specimens collected from cervical swab collection devices have been validated and verified by the [facility]. Verification studies support [...] MICROBIOLOGY - GEN ERAL ORDERABLES Final Result [facility] [place] [address] * N. gonorrhoeae/C. trachomatis amplification test (04/16/2017 10:15 AM CDT) Report Final Report: Negative for: ??Chlamydia trachomatis rRNA Negative for: ??Neisseria gonorrhoeae rRNA [facility] Rectal swab 04/16/2017 10:1 5 AM CDT 04/16/2017 8:25 PM CDT Narrative [facility] - 04/16/2017 8:25 PM CDT Testing performed by the Gen-Probe Tigris APTIMA Combo 2 Assay. This nucleic acid amplification test (NAAT) detects ribosomal RNA (rRNA) from Chlamydia trachomatis and Neisseria gonorrhoeae using target capture,and Carpenter Mine-Mediated Amplification (TMA). This test is approved by the [place] Food and Drug Administration for endocervical, vaginal, and male urethral swab specimens, in addition to male and female urine specimens. The performance characteristics for these specimen types have been verified by the [facility].The performance characteristics of this assay for pharyngeal and rectal specimens collected from cervical swab collection devices have been validated and verified by the [facility]. Verification studies support [...] - GEN ERAL ORDERABLES Final Result [facility] Department [place] [address] documented in this encounter Visit Diagnoses Not on filedocumented in this encounter Care Teams Prototype Fabricator Relationship Specialty Start Date End Date Gucci Vilchis MD PCP - General 04/16/17 08/08/22 documented as of this encounter
--- OUTSIDE RECORDS SUMMARY | 2024-11-22 16:15 | XMS_ITS | Encounter Summary ---
Author Organization [facility] Address [address] [facility] [address] [place] [address] Phone Care Team Providers Care Security Delivery Specialist Name Role Phone Gucci Vilchis MD Primary Care Provider [phone] Encounter Details Date Type Department Care Team (Late st Contact Info) Description 02/09/[address] [facility] Infectious Diseases [address] [place] [phone] Lottie Wan CMA Social History Tobacco Use Types Packs/Day Years Used Date Smoking Tobacco: Never Smokeless Tobacco: Never Sex and Gender Information Value Date Recorded Sex Assigned at Not on file Legal Sex Male 7:55 PM LANDSCAPE AND YARDWORK LABORER Gender Identity Not on file Sexual Orientation [...] filedocumented in this encounter Care Teams Security Delivery Specialist Relationship Specialty Start Date End Date Gucci Vilchis MD PCP - General 04/16/17 08/08/22 [facility] Billiard Parlor Manager 10/30/18 12/08/21 documented as of this encounter
--- OUTSIDE RECORDS SUMMARY | 2024-11-22 16:15 | XMS_ITS | Encounter Summary ---
Author Organization [facility] Healthcare Address [address] [place] [address] Care Team Providers Care Carbonating Stone Cleaner Name Role Phone Gucci Vilchis MD Primary Care Provider [phone] Encounter Details Date Type Department Care Team (Late st Contact Info) Description 10/28/2019 3:05 PM [facility] [address] [address] Social History Tobacco Use Types Packs/Day Years Used Date Smoking Tobacco: Never Smokeless Tobacco: Never Sex and Gender Information Value Date Recorded Sex Assigned at Not on file Legal Sex Male 7:55 PM RECRUITMENT INTERNSHIP Gender Identity Not on file Sexual Orientation Not on file documented as of this encounter Plan of Treatment Not on file documented as of this encounter Visit Diagnoses Not on filedocumented in this encounter Care Teams Carbonating Stone Cleaner Relationship Specialty Start Date End Date Gucci Vilchis MD PCP - General 04/16/17 08/08/22 [facility] Paramedical Aide 10/30/18 12/08/21 documented as of this encounter
--- OUTSIDE RECORDS SUMMARY | 2024-11-22 16:15 | XMS_ITS | Encounter Summary ---
Author Organization [facility] Address [address] [place] [address] Phone Care Team Providers Care Apparel Designer Name Role Phone Gucci Vilchis MD Primary Care Provider [phone] Encounter Details Date Type Department Care Team (Late st Contact Info) Description 12/04/2018 Orders Only [facility] Infectious Diseases [address] [place] [address] [address] [place] [address] Antoinette Riley PA [address] [facility] [address] [place] [address] STD exposure (Primary Dx); HIV disease (CMS/HCC); Needs flu shot Social History Tobacco Use Types Packs/Day Years Used Date Smoking Tobacco: Never Smokeless Tobacco: Never Sex and Gender Information Value Date Recorded Sex Assigned at Not on file Legal Sex Male 7:55 PM PAIN MANAGEMENT SPECIALIST Gender Identity Not on file Sexual [...] flu shots were available in ID clinic. MANAGEMENT SPECIALIST documented in this encounter Plan of Treatment Not on file documented as of this encounter Results * Toxoplasma gondii antibody, IgG (12/05/2018 9:03 AM PAIN MANAGEMENT SPECIALIST) Pathologist [facility] Toxoplasma IgG Negative Negative [facility] Comment: Interpretive Data Negative - ??No detectable antibody. Equivocal - Presence of detectable antibody cannot be determined. Positive - ??Detectable level of antibody present. Current interpretive data was last revised on 2017. Blood specimen (specimen) 12/05/2018 9:03 AM PAIN MANAGEMENT SPECIALIST 12/05/2018 12:36 PM PAIN MANAGEMENT SPECIALIST Narrative [facility] - 12/05/2018 2:52 PM PAIN MANAGEMENT SPECIALIST Antoinette GANNON LAB MICROBIOLOGY - GENERAL ORDERABLES Final Result [facility] Department [place] [address] * (ABNORMAL) HIV-1 RNA PCR, quantitative (12/05/2018 9:03 AM PAIN MANAGEMENT SPECIALIST) Pathologist [facility] HIV-1 RNA Detected( A) [facility] Comment: Interpretive Data: The quantifiable range of this assay is 20 copies/mL to 10,000,000 copies/mL (1.30 log copies/mL to 7.00 log copies/mL). ??Testing was performed by the NIELS AmpliPrep/NIELS TaqMan HIV-1 Test version 2.0 ([employer]rés [employer] Testing performed at [facility] Current Interpretive Data was last revised on 2015. HIV-1 RNA, copies/mL 81 copies/mL [facility] HIV-1 RNA, log 1.91 log cps/mL [facility] Blood specimen (specimen) 12/05/2018 9:03 AM PAIN MANAGEMENT SPECIALIST 12/05/2018 1:02 PM PAIN MANAGEMENT SPECIALIST Narrative [facility] - 12/06/2018 3:09 PM PAIN MANAGEMENT SPECIALIST Antoinette GANNON LAB MICROBIOLOGY - GENERAL ORDERABLES Final Result Performing Organization Address [facility] Co de Phone Number [facility] [place] [address] * (ABNORMAL) T-helper cells (CD4) count (12/05/2018 9:03 AM PAIN MANAGEMENT SPECIALIST) [facility] CD4 pct 25(L) 31 - 64 % [facility] CD4 Absolute 560 365 - 1,294 cells/mcL [facility] Blood specimen (specimen) 12/05/2018 9:03 AM PAIN MANAGEMENT SPECIALIST 12/05/2018 12:36 PM PAIN MANAGEMENT SPECIALIST Narrative [facility] - 12/05/2018 8:15 PM PAIN MANAGEMENT SPECIALIST Antoinette GANNON LAB BLOOD ORDERABLES Final Result Performing Organization Address [facility] de Phone Number [facility] [place] [address] * CBC with auto differential (12/05/2018 9:03 AM PAIN MANAGEMENT SPECIALIST) [facility] WBC 4.3 3.8 - 9.9 K/cumm [facility] Hgb 13.0 13.0 - 17.5 g/dL [facility] Hct 39.0 38.9 - 50.3 % [facility] Plt 218 150 - 400 K/cumm [facility] MPV 10.9 9.1 - 12.3 fL [facility] RBC 4.62 4.30 - 5.80 M/cumm [facility] MCV 84.4 81.3 - 96.4 fL [facility] MCH 28.1 27.1 - 33.3 pg [facility] MCHC 33.3 32.3 - 35.7 g/dL [facility] RDW CV 13.6 11.1 - 14.9 % [facility] RDW SD 42.3 35.7 - 48.1 fL [facility] NRBC abs 0.00 0.00 - 0.01 K/cumm [facility] Blood specimen (specimen) 12/05/2018 9:03 AM PAIN MANAGEMENT SPECIALIST 12/05/2018 12:36 PM PAIN MANAGEMENT SPECIALIST Narrative [facility] - 12/05/2018 12:50 PM PAIN MANAGEMENT SPECIALIST Antoinette GANNON LAB BLOOD ORDERABLES Final Result Performing Organization Address [facility] de Phone Number [facility] Department [place] [address] * RPR, serum (12/05/2018 9:03 AM PAIN MANAGEMENT SPECIALIST) RPR Non-React jason Non-React jason [facility] Comment: Interpretive Data Testing performed by Multiplex Flow Immunoassay. Current interpretive data was last revised on 18. Blood specimen (specimen) 12/05/2018 9:03 AM PAIN MANAGEMENT SPECIALIST 12/05/2018 12:36 PM PAIN MANAGEMENT SPECIALIST Narrative [facility] - 12/05/2018 2:51 PM PAIN MANAGEMENT SPECIALIST Antoinette GANNON LAB MICROBIOLOGY - GENERAL ORDERABLES Final Result Performing Organization Address [facility] de Phone Number [facility] Department [place] [address] documented in this encounter Visit Diagnoses Diagnosis [...] 12/04/2018 documented in this encounter Care Teams Apparel Designer Relationship Specialty Start Date End Date Gucci Vilchis MD PCP - General 04/16/17 08/08/22 [facility] Military Nurse 10/30/18 12/08/21 documented as of this encounter
--- OUTSIDE RECORDS SUMMARY | 2024-11-22 16:15 | XMS_ITS | Encounter Summary ---
Author Organization [facility] Address [address] [facility] [address] [place] [address] Phone Care Team Providers Care Customer Solutions Specialist Name Role Phone Gucci Vilchis MD Primary Care Provider [phone] Reason for Visit * Reason Onset Date Comments Patient issue/concern 11/18/2019 Encounter Details Date Type Department Care Team (Late st Contact Info) Description 11/18/2019 Telephone [facility] Infectious Diseases [address] [place] [address] Francheska Gunderson CMA Patient issue/concern Social History Tobacco Use Types Packs/Day Years Used Date Smoking Tobacco: Never Smokeless Tobacco: Never Sex and Gender Information Value Date Recorded Sex Assigned at Not on file Legal Sex Male 7:55 PM MANAGER OF HOUSEKEEPING Gender Identity Not on file Sexual Orientation Not on file documented as of this encounter Miscellaneous Notes * Telephone Encounter - Flora Humphries - 11/19/2019 11:59 AM CST Spoke with Dashawn, discussed scripts and labs sent to CM GER OF HOUSEKEEPING * Telephone Encounter - Francheska Gunderson CMA - 11/18/2019 10:48 AM MANAGER OF HOUSEKEEPING Patient is returning your call. GER OF HOUSEKEEPING documented in this encounter Plan of Treatment Not on file documented as of this encounter Visit Diagnoses Not on filedocumented in this encounter Care Teams Customer Solutions Specialist Relationship Specialty Start Date End Date Gucci Vilchis MD PCP - General 04/16/17 08/08/22 [facility] Audit Lead 10/30/18 12/08/21 documented as of this encounter
--- OUTSIDE RECORDS SUMMARY | 2024-11-22 16:15 | XMS_ITS | Encounter Summary ---
Author Organization [facility] Address [address] [facility] [address] [place] [address] Phone Care Team Providers Care Principal Bioinformatics Specialist Name Role Phone Gucci Vilchis MD Primary Care Provider [phone] Reason for Visit * Reason Comments HIV Positive/AIDS Follow-up * Consultation (Routine) - Canceled Specialty Diagnoses / Procedures Referred By Markell tong Referred To Contact Infectious Diseases Diagnoses HIV disease (CMS/HCC) (HCC) Be Knight PA Phone: tel: fax: [facility] (All Locations) Referral ID Status Reason Start Date Expiration Date Visits Requested Visits Authorized [id number] Canceled Specialty Services Required 03/24/2020 10/03/[phone] Encounter Details Date Type Department Care Team (Late st Contact Info) Description 04/13/2020 10:40 AM CDT Office Visit [facility] Infectious Diseases [address] [place] [address] [address] [place] [address] Antoinette Riley PA [facility] [address] [facility] [address] [place] [address] HIV disease (CMS/HCC) (Primary Dx); Long-term use of high-risk medication; Routine screening for STI (sexually transmitted infection) Social History Tobacco Use Types Packs/Day Years Used Date Smoking Tobacco: Never Smokeless Tobacco: Never Sex and Gender Information Value Date Recorded Sex Assigned at Not on file Legal Sex Male 7:55 PM FORESTRY SUPPORT SPECIALIST Gender Identity Not on file Sexual [...] located at Infectious Disease Clinic in the [facility] and the patient was located at his home. The session started at 1041 and ended at 1046. The patient has been informed that the visit may not be secure and acknowledged the information. I have explained the option of participating in a telephone visit during the [address] to the patient. After being given [...] trachomatis rRNA Negative for: Neisseria gonorrhoeae rRNA [id number] NOT DETECTED 12/31/2012 [id number] NOT DETECTED 12/31/2012 [id number] NOT DETECTED 11/25/2013 [id number] NOT DETECTED 11/25/2013 No results found for: TRICHOMONU ANNUAL LABS AND SCREENING -TB SCREENING Lab Results Component Value Date IFNGAMMAREL Negative 07/05/2018 [id number] See Comment 08/16/2016 PPD Negative 10/28/2019 -LIPIDS [...] PAP No results found for: HIRSKHPVRNA, HPVG16, [id number], [id number] -PROSTATE CANCER SCREENING IF HIGH RISK No results found for: PSA BASELINE SCREENING -HEPATITIS A IMMUNITY STATUS Lab Results Component Value Date HAV Positive (A) 08/16/2016 -HEPATITIS B IMMUNITY STATUS Lab Results Component Value Date HEPBSAB Positive 08/16/2016 HEPBSAB 384 08/16/2016 -TOXOPLASMA IMMUNITY STATUS Lab Results Component Value Date TOXOIGG Negative 12/05/2018 [id number] < OR = 0.90 11/25/2013 -CMV IMMUNITY STATUS No results found for: CMVIGG -G6PD LEVEL (NORMAL >4.6) Lab Results Component Value Date G6PD Normal 08/16/2016 -[id number] STATUS Lab Results Component Value Date [id number] Negative 11/25/2013 Assessment/Plan This is a 49 [...] Assessment & Plan: Routine lab monitoring on snf HIV meds to assess for drug toxicity [...] in this office suite for this Physician Correspondence School Teacher, Antoinette Riley PA-C is Dr. Bird May. documented in this encounter Miscellaneous Notes * Assessment & Plan Note - Antoinette Riley PA - 04/14/2020 11:17 AM CDT Associated Problem(s): On highly active antiretroviral therapy (HAART) Routine lab monitoring on superintendent container terminal [...] disease documented in this encounter Care Teams Principal Bioinformatics Specialist Relationship Specialty Start Date End Date Gucci Vilchis MD PCP - General 04/16/17 08/08/22 [facility] Manager Fine Dining 10/30/18 12/08/21 documented as of this encounter
--- OUTSIDE RECORDS SUMMARY | 2024-11-22 16:15 | XMS_ITS | Encounter Summary ---
Author Organization [facility] Address [address] [place] [address] Care Team Providers Care Aluminum Boat Inspector Name Role Phone Gucci Vilchis MD Primary Care Provider [phone] Encounter Details Date Type Department Care Team (Late st Contact Info) Description 10/29/2020 6:10 PM ENVIRONMENTAL SERVICES AIDE Lab [address] [address] Social History Tobacco Use Types Packs/Day Years Used Date Smoking Tobacco: Never Smokeless Tobacco: Never Sex and Gender Information Value Date Recorded Sex Assigned at Not on file Legal Sex Male 7:55 PM ENVIRONMENTAL SERVICES AIDE Gender Identity Not on file Sexual Orientation Not on file documented as of this encounter Plan of Treatment Not on file documented as of this encounter Visit Diagnoses Not on filedocumented in this encounter Care Teams Aluminum Boat Inspector Relationship Specialty Start Date End Date Gucci Vilchis MD PCP - General 04/16/17 08/08/22 [facility] [place] Squaring Shear Operator 10/30/18 12/08/21 documented as of this encounter
--- OUTSIDE RECORDS SUMMARY | 2024-11-22 16:15 | XMS_ITS | Encounter Summary ---
Author Organization [facility] Address [address] [place] [address] Phone Care Team Providers Care Wall Covering Installer Name Role Phone Gucci Vilchis MD Primary Care Provider [phone] Encounter Details Date Type Department Care Team (Late st Contact Info) Description 11/07/2019 Telephone [facility] Infectious Diseases [address] [place] [address] Sarbjit Becker RMA Social History Tobacco Use Types Packs/Day Years Used Date Smoking Tobacco: Never Smokeless Tobacco: Never Sex and Gender Information Value Date Recorded Sex Assigned at Not on file Legal Sex Male 7:55 PM JAVA APPLICATION DEVELOPER Gender Identity Not on file Sexual Orientation Not on file documented as of this encounter Miscellaneous Notes * Telephone Encounter - Flora Humphries - 11/10/2019 2:24 PM CST Return call, discussed slightly elevated VL, requested repeat VL in 1 month. Will call pt in 3 weeks for reminder. APPLICATION DEVELOPER * Telephone Encounter - Sarbjit Becker RMA - 11/07/2019 11:12 AM JAVA APPLICATION DEVELOPER Pt requesting a call back, pt did not give any details for the call. APPLICATION DEVELOPER documented in this encounter Plan of Treatment Not on file documented as of this encounter Visit Diagnoses Not on filedocumented in this encounter Care Teams Wall Covering Installer Relationship Specialty Start Date End Date Gucci Vilchis MD PCP - General 04/16/17 08/08/22 [facility] Tearoom Host/Hostess 10/30/18 12/08/21 documented as of this encounter
--- OUTSIDE RECORDS SUMMARY | 2024-11-22 16:15 | XMS_ITS | Encounter Summary ---
Author Organization [facility] Address [address] [place] [address] Phone Care Team Providers Care Agile Tester Name Role Phone Gucci Vilchis MD Primary Care Provider [phone] Encounter Details Date Type Department Care Team (Late st Contact Info) Description 12/03/[address] [facility] Scheduling [address] [place] [address] Carli Tee CNA Social History Tobacco Use Types Packs/Day Years Used Date Smoking Tobacco: Never Smokeless Tobacco: Never Sex and Gender Information Value Date Recorded Sex Assigned at Not on file Legal Sex Male 7:55 PM TOP EXECUTIVE Gender Identity Not on file Sexual Orientation Not on file documented as of this encounter Miscellaneous Notes * Telephone Encounter - Carli Tee CNA - 12/04/2018 3:38 PM CST PATIENT WAS OKAY WITH APPT RESCHEDULED TO 12/31 EXECUTIVE * Telephone Encounter - Tequila Luu RN - 12/03/2018 3:16 PM CST Adding Carli to message. EXECUTIVE * Telephone Encounter - Ashley Sanderson RN - 12/03/2018 2:01 PM TOP EXECUTIVE Carli - how about we try Antoinette wilsonolgoarlin return on a Sunday? EXECUTIVE * Telephone Encounter - Anne Barros NP - 12/03/2018 1:50 PM TOP EXECUTIVE He has been seeing Antoinette since 2017 it looks like EXECUTIVE * Telephone Encounter - Tequila Luu RN - 12/03/2018 1:36 PM CST Pt asking for earlier appt than 12/13. He has been on multiple provider schedules on . Not sure who his primary Virology provider is. lbw EXECUTIVE documented in this encounter Plan of Treatment Not on file documented as of this encounter Visit Diagnoses Not on filedocumented in this encounter Care Teams Agile Tester Relationship Specialty Start Date End Date Gucci Vilchis MD PCP - General 04/16/17 08/08/22 [facility] Inside Sales Supervisor 10/30/18 12/08/21 documented as of this encounter
--- OUTSIDE RECORDS SUMMARY | 2024-11-22 16:15 | XMS_ITS | Encounter Summary ---
Author Organization [facility] Address [address] [facility] [address] [place] [address] Phone Care Team Providers Care Poultry Tender Name Role Phone Gucci Vilchis MD Primary Care Provider [phone] Reason for Visit * Reason Comments Follow-up HIV Positive/AIDS Encounter Details Date Type Department Care Team (Latest Contact Info) Description 12/14/2020 10:00 AM LABORER FILTER PLANT Office Visit [facility] Infectious Diseases [address] [place] [address] [address] [place] [address] Antoinette Riley PA [address] [address] HIV disease (CMS/HCC) (Primary Dx); On highly active antiretroviral therapy (HAART) Social History Tobacco Use Types Packs/Day Years Used Date Smoking Tobacco: Never Smokeless Tobacco: Never Sex and Gender Information Value Date Recorded Sex Assigned at Not on file Legal Sex Male 7:55 PM LABORER FILTER PLANT Gender Identity Not on file Sexual Orientation Not on file documented as of this encounter Last Filed Vital Signs Vital Sign Reading Time Taken Comments Blood Pressure 118/76 12/14/2020 9:47 AM LABORER FILTER PLANT Pulse 82 12/14/2020 9:47 AM LABORER FILTER PLANT Temperature 36.1 ??C (97 ??F) 12/14/2020 9:47 AM LABORER FILTER PLANT Respiratory Rate - - Oxygen Saturation - - Inhaled Oxygen Concentration - - Weight 97.8 kg (215 lb 9.6 oz) 12/14/2020 9:47 A M LABORER FILTER PLANT Height 182.9 cm (6') 12/14/2020 9:47 AM LABORER FILTER PLANT Body Mass Index 29.24 12/14/2020 9:47 AM LABORER FILTER PLANT documented in this encounter Ordered Prescriptions Prescription Sig Dispense Quantity Refills Last Filled Start Date End Date dolutegravir (TIVICAY) 50 mg tabletIndications: HIV disease (CMS/HCC) (HCC) Take 1 tablet (50 mg total) by mouth daily 90 tablet 2 12/14/2020 12/26/2021 yfaprzohm-mhxh-pxa ri-tenof ala (Symtuza) [phone] mg tabletIndications: HIV disease (CMS/HCC) (HCC) Take [...] 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 He [...] darunavir ethanolate (Prezista) 800 mg tablet ??? xtdxhmttv-nkef-lzbxr-tenof ala (Symtuza) 032-180-130-10 mg tablet ??? dolutegravir (TIVICAY) 50 mg [...] trachomatis rRNA Negative for: Neisseria gonorrhoeae rRNA [id number] NOT DETECTED 12/31/2012 [id number] NOT DETECTED 12/31/2012 [id number] NOT DETECTED 11/25/2013 [id number] NOT DETECTED 11/25/2013 No results found for: TRICHOMONU, TRICHOMONAS ANNUAL LABS AND SCREENING -TB SCREENING Lab Results Component Value Date IFNGAMMAREL Negative 07/05/2018 [id number] See Comment 08/16/2016 PPD Negative 10/29/2020 -LIPIDS [...] PAP No results found for: HIRSKHPVRNA, HPVG16, [id number], [id number] -PROSTATE CANCER SCREENING IF HIGH RISK No results found for: PSA BASELINE SCREENING -HEPATITIS A IMMUNITY STATUS Lab Results Component Value Date HAV Positive (A) 08/16/2016 -HEPATITIS B IMMUNITY STATUS Lab Results Component Value Date HEPBSAB Positive 08/16/2016 HEPBSAB 384 08/16/2016 -TOXOPLASMA IMMUNITY STATUS Lab Results Component Value Date TOXOIGG Negative 12/05/2018 [id number] < OR = 0.90 11/25/2013 -CMV IMMUNITY STATUS No results found for: CMVIGG -G6PD LEVEL (NORMAL >4.6) Lab Results Component Value Date G6PD Normal 08/16/2016 -[id number] STATUS Lab Results Component Value Date [id number] Negative 11/25/2013 -COLONOSCOPY- Refer at next visit [...] - HIV-1 RNA PCR, quantitative; Future - ujusbevlk-sqgb-yjizc-tenof ala (Symtuza) [id number] mg tablet; Take 1 tablet by mouth [...] in this office suite for this Physician Poacher Operator, Antoinette Riley PA-C is Dr. Bird May. RER FILTER PLANT documented in this encounter Miscellaneous Notes * Assessment & Plan Note - Antoinette Riley PA - 12/15/2020 10:19 AM LABORER FILTER PLANT Associated Problem(s): On highly active antiretroviral therapy (HAART) Will check VL today prior to re-initiation of cART. Will recheck VL iin 6-8 weeks on cART. RER FILTER PLANT RER FILTER PLANT * Assessment & Plan Note - Antoinette Riley PA - 12/15/2020 9:53 AM LABORER FILTER PLANT Associated Problem(s): HIV infection (HCC) Stop Genvoya and Prezcobix. Start Symtuza and Tivicay - pills are somewhat smaller and Tivicay is a more potent integrase inhibitor than elvitegravir. 100% adherence encouraged to maintain viral suppression and prevent resistance. Undetectable = untransmittable. Risk reduction counseling and adherence counseling provided. RTC 6 weeks to check on adherence, tolerance, and viral load. RER FILTER PLANT documented in this encounter Plan of Treatment Not on file documented as of this encounter Procedures Procedure Name Priority Date/Time Associated Diagnosis Comments HIV-1 RNA, QUANTITATIVE, PCR Routine 12/14/2020 10:50 AM LABORER FILTER PLANT HIV disease (CMS/HCC) On highly active antiretroviral therapy (HAART) documented in this encounter Results * (ABNORMAL) HIV-1 RNA PCR, quantitative (12/14/2020 10:50 AM LABORER FILTER PLANT) HIV-1 RNA Detected( A) [facility] Comment: Interpretive Data: The quantifiable range of this assay is 20 copies/mL to 10,000,000 copies/mL (1.30 log copies/mL to 7.00 log copies/mL). ??Testing was performed by the NIEL[employer] AmpliPrep/NIELS TaqMan HIV-1 Test version 2.0 (Andrés [employer] Testing performed at [facility] Current Interpretive Data was last revised on 2015. HIV-1 RNA, copies/mL 127,248 copies/mL [facility] HIV-1 RNA, log 5.10 log cps/mL [facility] Blood specimen (specimen) 12/14/2020 10:50 AM LABORER FILTER PLANT 12/15/2020 6:39 AM LABORER FILTER PLANT us Antoinette GANNON LAB MICROBIOLOGY - GENERAL ORDERABLES Final Result [facility] Department [place] [address] documented in this encounter Visit Diagnoses Diagnosis HIV disease (CMS/HCC) (HCC)- Primary Human immunodeficiency virus [HIV] disease On highly active antiretroviral therapy (HAART) documented in this encounter Discontinued Medications Medication Sig Discontinue Reason Start Date End Da te vjxfogo-hfu-vynvl-tenof ALAFEN (Genvoya) [phone] mg tabletIndications:HIV disease (CMS/HCC) (HCC) Take 1 tablet by mouth daily with lunch Therapy completed 10/29/2020 12/14/2020 documented as of this encounter Care Teams Poultry Tender Relationship Specialty Start Date End Date Gucci Vilchis MD PCP - General 04/16/17 08/08/22 [facility] Glass Glazier 10/30/18 12/08/21 documented as of this encounter
--- OUTSIDE RECORDS SUMMARY | 2024-11-22 16:15 | XMS_ITS | Encounter Summary ---
Author Organization [facility] Healthcare Address [address] [place] [address] Care Team Providers Care Antique Furniture Restorer Name Role Phone Unavailable Primary Care Provider Unavailabl e Encounter Details Date Type Department Care Team (Late st Contact Info) Description 05/29/2007 5:49 PM CDT - 05/29/2007 7:28 PM CDT Hospital Encounter [facility] Dave, Garrett Vilchis, Gucci Hargrove MD [address] [address] Social History Tobacco Use Types Packs/Day Years Used Date Smoking Tobacco: Never Assessed Sex and Gender Information Value Date Recorded Sex Assigned at Not on file Legal Sex Male 7:55 PM NONPROFIT FUNDRAISER Gender Identity Not on file Sexual Orientation Not on file documented as of this encounter Plan of Treatment Not on file documented as of this encounter Visit Diagnoses Not on filedocumented in this encounter
--- OUTSIDE RECORDS SUMMARY | 2024-11-22 16:15 | XMS_ITS | Encounter Summary ---
Author Organization [facility] Address [address] [facility] [address] [place] [address] Phone Care Team Providers Care Municipal Clerk Name Role Phone Gucci Vilchis MD Primary Care Provider [phone] Encounter Details Date Type Department Care Team (Late st Contact Info) Description 12/04/2018 Telephone [facility] Infectious Diseases [address] [place] [address] Sarbjit Becker, [facility] Social History Tobacco Use Types Packs/Day Years Used Date Smoking Tobacco: Never Smokeless Tobacco: Never Sex and Gender Information Value Date Recorded Sex Assigned at Not on file Legal Sex Male 7:55 PM NODULIZER Gender Identity Not on file Sexual Orientation Not on file documented as of this encounter Miscellaneous Notes * Telephone Encounter - Ashley Sanderson RN - 12/04/2018 11:35 AM NODULIZER No - just fyi LIZER * Telephone Encounter - Flora Humphries - 12/04/2018 11:28 AM CST Do you need me to follow up with anything for this? LIZER * Telephone Encounter - Ashley Sanderson RN - 12/04/2018 11:25 AM NODULIZER MA team and CM - please see [...] allergies with patient. Patient alerted that both keycase assembler and Health Department will contact patient regarding results. Providers and mental health case manager were notified of STI and treatment. LIZER * Telephone Encounter - Antoinette Riley PA - 12/04/2018 11:13 AM NODULIZER Yes please. His next appt is 12/13/2018 [...] I can put in the orders. Antoinette LIZER * Telephone Encounter - Ashley Sanderson RN - 12/04/2018 9:56 AM NODULIZER Antoinette - I believe this is one of your patients. He is calling after finding out that partner was treated for syphillis Last RPR for patient was negative in june of 2018 Would you want him to come in only for testing and one IM bicillin? LIZER * Telephone Encounter - Sarbjit Becker MA - 12/04/2018 9:46 AM NODULIZER Pt call back with the same concern, for a sooner appointment. LIZER documented in this encounter Plan of Treatment Not on file documented as of this encounter Visit Diagnoses Not on filedocumented in this encounter Care Teams Municipal Clerk Relationship Specialty Start Date End Date Gucci Vilchis MD PCP - General 04/16/17 08/08/22 [facility] Natural Gas Inspector 10/30/18 12/08/21 documented as of this encounter
--- OUTSIDE RECORDS SUMMARY | 2024-11-22 16:15 | XMS_ITS | Encounter Summary ---
Author Organization [facility] Healthcare Address [address] [place] [address] Care Team Providers Care American Indian Studies Professor Name Role Phone Gucci Vilchis MD Primary Care Provider [phone] Encounter Details Date Type Department Care Team (Late st Contact Info) Description 07/05/2018 11:55 AM CDT Lab [address] [address] Social History Tobacco Use Types Packs/Day Years Used Date Smoking Tobacco: Never Smokeless Tobacco: Never Sex and Gender Information Value Date Recorded Sex Assigned at Not on file Legal Sex Male 7:55 PM ACID DIPPER Gender Identity Not on file Sexual Orientation [...] insignificant growth based on current clinical standards) [facility] Organism (CLINICALLY INSIGNIFICANT GROWTH [facility] Urine 07/05/2018 10:2 9 AM CDT 07/05/2018 1:35 PM CDT Narrative [facility] - 07/06/2018 7:45 AM CDT Urine culture reflexed based upon urinalysis results. Testing performed by [facility] ([phone]) Antoinette GANNON LAB MICROBIOLOGY - GENERAL ORDERABLES Final Result [facility] [place] [address] documented in this encounter Visit Diagnoses Not on filedocumented in this encounter Care Teams American Indian Studies Professor Relationship Specialty Start Date End Date Gucci Vilchis MD PCP - General 04/16/17 08/08/22 documented as of this encounter
--- OUTSIDE RECORDS SUMMARY | 2024-11-22 16:15 | XMS_ITS | Encounter Summary ---
Author Organization [facility] Address [address] [place] [address] Phone Care Team Providers Care Serger Name Role Phone Gucci Vilchis MD Primary Care Provider [phone] Encounter Details Date Type Department Care Team (Late st Contact Info) Description 12/29/2019 Orders Only [facility] Infectious Diseases [address] [place] [address] [address] [place] [address] Antoinette Riley PA [address] [place] [address] [address] [place] [address] HIV disease (CMS/HCC) Social History Tobacco Use Types Packs/Day Years Used Date Smoking Tobacco: Never Smokeless Tobacco: Never Sex and Gender Information Value Date Recorded Sex Assigned at Not on file Legal Sex Male 7:55 PM POCKET ASSEMBLER Gender Identity Not on file Sexual Orientation Not on file documented as of this encounter Plan of Treatment Not on file documented as of this encounter Procedures Procedure Name Priority Date/Time Associated Diagnosis Comments HIV-1 RNA, QUANTITATIVE, PCR Routine 12/29/2019 4:03 PM POCKET ASSEMBLER HIV disease (CMS/HCC) documented in this encounter Results * (ABNORMAL) HIV-1 RNA PCR, quantitative (12/29/2019 4:03 PM POCKET ASSEMBLER) HIV-1 RNA Detected( A) [facility] Comment: Interpretive Data: The quantifiable range of this assay is 20 copies/mL to 10,000,000 copies/mL (1.30 log copies/mL to 7.00 log copies/mL). ??Testing was performed by the NIELS AmpliPrep/NIELS TaqMan HIV-1 Test version 2.0 (Andrés [employer] Testing performed at [facility] Current Interpretive Data was last revised on 2015. HIV-1 RNA, copies/mL 63 copies/mL [facility] HIV-1 RNA, log 1.80 log cps/mL [facility] Blood specimen (specimen) 12/29/2019 4:03 PM POCKET ASSEMBLER 12/29/2019 8:14 PM POCKET ASSEMBLER us Antoinette GANNON LAB MICROBIOLOGY - GENERAL ORDERABLES Final Result [facility] One [facility] Department [place] [address] documented in this encounter Visit Diagnoses Diagnosis HIV disease (CMS/HCC) (HCC) Human immunodeficiency virus [HIV] disease documented in this encounter Care Teams Serger Relationship Specialty Start Date End Date Gucci Vilchis MD PCP - General 04/16/17 08/08/22 [facility] Burleson Paint Mixer 10/30/18 12/08/21 documented as of this encounter
--- OUTSIDE RECORDS SUMMARY | 2024-11-22 16:15 | XMS_ITS | Encounter Summary ---
Author Organization [facility] Healthcare Address [address] [place] [address] Care Team Providers Care Relocation Coordinator Name Role Phone Unavailable Primary Care Provider Unavailabl e Encounter Details Date Type Department Care Team (Late st Contact Info) Description 03/23/2007 11:10 AM CDT - 03/23/2007 3:28 PM CDT Hospital Encounter [facility] Dave, Garrett Vilchis, Gucci Hargrove MD [address] [address] Social History Tobacco Use Types Packs/Day Years Used Date Smoking Tobacco: Never Assessed Sex and Gender Information Value Date Recorded Sex Assigned at Not on file Legal Sex Male 7:55 PM GOVERNMENT PROGRAM MANAGER Gender Identity Not on file Sexual Orientation Not on file documented as of this encounter Plan of Treatment Not on file documented as of this encounter Visit Diagnoses Not on filedocumented in this encounter
--- OUTSIDE RECORDS SUMMARY | 2024-11-22 16:15 | XMS_ITS | Encounter Summary ---
Author Organization [facility] Address [address] [facility] [address] [place] [address] Phone Care Team Providers Care Analog Ic Design Engineer Name Role Phone Gucci Vilchis MD Primary Care Provider [phone] Encounter Details Date Type Department Care Team (Late st Contact Info) Description 11/28/2019 Telephone [facility] Infectious Diseases [address] [place] [address] Flora Humphries Social History Tobacco Use Types Packs/Day Years Used Date Smoking Tobacco: Never Smokeless Tobacco: Never Sex and Gender Information Value Date Recorded Sex Assigned at Not on file Legal Sex Male 7:55 PM POLICE INVESTIGATOR Gender Identity Not on file Sexual Orientation Not on file documented as of this encounter Miscellaneous Notes * Telephone Encounter - Flora Humphries - 11/28/2019 11:43 AM CST Spoke with Dashawn, reminded of lab draw next week. He will come in for repeat vl and genotype. Aware lab closed on Sunday. CE INVESTIGATOR documented in this encounter Plan of Treatment Not on file documented as of this encounter Visit Diagnoses Not on filedocumented in this encounter Care Teams Analog Ic Design Engineer Relationship Specialty Start Date End Date Gucci Vilchis MD PCP - General 04/16/17 08/08/22 [facility] Employee Benefits Manager 10/30/18 12/08/21 documented as of this encounter
--- OUTSIDE RECORDS SUMMARY | 2024-11-22 16:15 | XMS_ITS | Encounter Summary ---
Author Organization [facility] Address [address] [place] [address] Phone Care Team Providers Care Pewter Fabricator Name Role Phone Gucci Vilchis MD Primary Care Provider [phone] Encounter Details Date Type Department Care Team (Late st Contact Info) Description 11/28/2019 Orders Only [facility] Infectious Diseases [address] [place] [address] [address] [place] [address] Antoinette Riley PA [facility] S [facility] [address] [place] [address] HIV disease (CMS/HCC) (Primary Dx) Social History Tobacco Use Types Packs/Day Years Used Date Smoking Tobacco: Never Smokeless Tobacco: Never Sex and Gender Information Value Date Recorded Sex Assigned at Not on file Legal Sex Male 7:55 PM ROLL FILLER Gender Identity Not on file Sexual Orientation Not on file documented as of this encounter Plan of Treatment Not on file documented as of this encounter Results * (ABNORMAL) HIV-1 RNA PCR, quantitative (12/29/2019 4:03 PM ROLL FILLER) [facility] HIV-1 RNA Detected( Roland) [facility] Comment: Interpretive Data: The quantifiable range of this assay is 20 copies/mL to 10,000,000 copies/mL (1.30 log copies/mL to 7.00 log copies/mL). ??Testing was performed by the NIELS AmpliPrep/NIELS TaqMan HIV-1 Test version 2.0 ([employer]rés [employer] Testing performed at [facility] Current Interpretive Data was last revised on 2015. HIV-1 RNA, copies/mL 63 copies/mL [facility] HIV-1 RNA, log 1.80 log cps/mL [facility] Blood specimen (specimen) 12/29/2019 4:03 PM ROLL FILLER 12/29/2019 8:14 PM ROLL FILLER Antoinette GANNON LAB MICROBIOLOGY - GENERAL ORDERABLES Final Result [facility] Department [place] [address] documented in this encounter Visit Diagnoses Diagnosis HIV disease (CMS/HCC) (HCC)- Primary Human immunodeficiency virus [HIV] disease documented in this encounter Care Teams Pewter Fabricator Relationship Specialty Start Date End Date Gucci Vilchis MD PCP - General 04/16/17 08/08/22 [facility] Java Sybase Developer 10/30/18 12/08/21 documented as of this encounter
--- OUTSIDE RECORDS SUMMARY | 2024-11-22 16:15 | XMS_ITS | Encounter Summary ---
Author Organization [facility] Address [address] [place] [address] Phone Care Team Providers Care Tobacco Sample Puller Name Role Phone Gucci Vilchis MD Primary Care Provider [phone] Encounter Details Date Type Department Care Team (Late st Contact Info) Description 09/04/2018 Telephone [facility] Infectious Diseases [address] [place] [address] Ashley Sanderson RN Social History Tobacco Use Types Packs/Day Years Used Date Smoking Tobacco: Never Smokeless Tobacco: Never Sex and Gender Information Value Date Recorded Sex Assigned at Not on file Legal Sex Male 7:55 PM ICU NURSE Gender Identity Not on file Sexual Orientation Not on file documented as of this encounter Miscellaneous Notes * Telephone Encounter - Ashley Sanderson RN - 09/04/2018 11:42 AM CDT error documented in this encounter Plan of Treatment Not on file documented as of this encounter Visit Diagnoses Not on filedocumented in this encounter Care Teams Tobacco Sample Puller Relationship Specialty Start Date End Date Gucci Vilchis MD PCP - General 04/16/17 08/08/22 documented as of this encounter
--- OUTSIDE RECORDS SUMMARY | 2024-11-22 16:15 | XMS_ITS | Encounter Summary ---
Author Organization [facility] Address [address] [place] [address] Phone Care Team Providers Care Store Assistant Name Role Phone Gucci Vilchis MD Primary Care Provider [phone] Encounter Details Date Type Department Care Team (Late st Contact Info) Description 12/05/2018 Orders Only [facility] Infectious Diseases [address] [place] [address] [address] [place] [address] Antoinette Riley PA [facility] S [facility] [address] [place], [place] [id number] STD exposure; HIV disease (CMS/HCC) Social History Tobacco Use Types Packs/Day Years Used Date Smoking Tobacco: Never Smokeless Tobacco: Never Sex and Gender Information Value Date Recorded Sex Assigned at Not on file Legal Sex Male 7:55 PM PLATING INSPECTOR Gender Identity Not on file Sexual Orientation Not on file documented as of this encounter Plan of Treatment Not on file documented as of this encounter Procedures Procedure Name Priority Date/Time Associated Diagnosis Comments GLUCOSE, RANDOM (OUTREACH) Routine 12/05/2018 9:03 AM PLATING INSPECTOR HIV disease (CMS/HCC) DIFFERENTIAL AUTO Routine 12/05/2018 9:0 3 AM PLATING INSPECTOR HIV disease (CMS/HCC) COMPREHENSIVE METABOLIC PANEL WITHOUT GLUCOSE (OUTREACH) Routine 12/05/2018 9:03 AM PLATING INSPECTOR HIV disease (CMS/HCC) COMPREHENSIVE METABOLIC PANEL (OUTREACH) Routine 12/05/2018 9:03 AM PLATING INSPECTOR HIV disease (CMS/HCC) CBC WITH AUTO DIFFERENTIAL Routine 12/05/2018 9:03 AM PLATING INSPECTOR HIV disease (CMS/HCC) HIV-1 RNA, QUANTITATIVE, PCR Routine 12/05/2018 9:03 AM PLATING INSPECTOR HIV disease (CMS/HCC) TOXOPLASMA GONDII ANTIBODY, IGG Routine 12/05/2018 9:03 AM PLATING INSPECTOR HIV disease (CMS/HCC) RPR Routine 12/05/2018 9:03 AM PLATING INSPECTOR STD exposure HIV disease (CMS/HCC) T-HELPER CELLS (CD4) COUNT Routine 12/05/2018 9:03 AM PLATING INSPECTOR HIV disease ([facility]/HCC) documented in this encounter Results * Glucose, random (Outreach) (12/05/2018 9:03 AM PLATING INSPECTOR) Glucose 97 70 - 199 mg/dL [facility] [...] 2017. Blood specimen (specimen) 12/05/2018 9:03 AM PLATING INSPECTOR 12/05/2018 12:36 PM PLATING INSPECTOR Narrative [facility] - 12/05/2018 1:10 PM PLATING INSPECTOR Antoinette GANNON LAB BLOOD ORDERABLES Final Result [facility] One [facility] Department [place] [address] * Comprehensive metabolic panel, without glucose (Outreach) (12/05/2018 9:03 AM PLATING INSPECTOR) Sodium 139 135 - 145 mmol/L [facility] Potassium, pl 3.5 3.3 - 4.9 mmol/L [facility] Chloride 102 97 - 110 mmol/L [facility] CO2 30 22 - 32 mmol/L [facility] Anion gap 8 2 - 15 mmol/L [facility] BUN 9 8 - 25 mg/dL [facility] Creatinine 1.05 0.80 - 1.30 mg/dL [facility] Calcium 9.3 8.5 - 10.3 mg/dL [facility] Protein, pl 8.0 6.5 - 8.5 g/dL [facility] Albumin 4.6 3.5 - 5.0 g/dL [facility] Bilirubin, total 0.2 0.1 - 1.2 mg/dL [facility] Alk phos 69 40 - 130 Units/L [facility] AST 23 10 - 50 Units/L [facility] ALT 26 7 - 55 Units/L [facility] Blood specimen (specimen) 12/05/2018 9:03 AM PLATING INSPECTOR 12/05/2018 12:36 PM PLATING INSPECTOR Narrative [facility] - 12/05/2018 1:09 PM PLATING INSPECTOR Antoinette GANNON LAB BLOOD ORDERABLES Final Result [facility] One [facility] Department [place] [address] * Differential, auto (12/05/2018 9:03 AM PLATING INSPECTOR) Neutrophil abs 1.7 1.7 - 6.5 K/cumm [facility] Imm gran abs 0.0 0.0 - 0.1 K/cumm [facility] Lymphocyte abs 2.1 0.8 - 3.3 K/cumm [facility] Monocyte abs 0.4 0.2 - 0.8 K/cumm [facility] Eosinophil abs 0.1 0.0 - 0.5 K/cumm [facility] Basophil abs 0.0 0.0 - 0.1 K/cumm [facility] Neutrophil pct 39.1 % [facility] Comment: Interpretive Data Percent cell count reference ranges are not reported, since discordance with absolute values may lead to misinterpretation of CBC data. Current Interpretive Data was last revised on 2018. Imm gran pct 0.0 % [facility] Comment: Interpretive Data Percent cell count reference ranges are not reported, since discordance with absolute values may lead to misinterpretation of CBC data. Current Interpretive Data was last revised on 2018. Lymphocyte pct 48.1 % [facility] Comment: Interpretive Data Percent cell count reference ranges are not reported, since discordance with absolute values may lead to misinterpretation of CBC data. Current Interpretive Data was last revised on 2018. Monocyte pct 10.0 % [facility] Comment: Interpretive Data Percent cell count reference ranges are not reported, since discordance with absolute values may lead to misinterpretation of CBC data. Current Interpretive Data was last revised on 2018. Eosinophil pct 1.9 % [facility] Comment: Interpretive Data Percent cell count reference ranges are not reported, since discordance with absolute values may lead to misinterpretation of CBC data. Current Interpretive Data was last revised on 2018. Basophil pct 0.9 % [facility] Comment: Interpretive Data Percent cell count reference ranges are not reported, since discordance with absolute values may lead to misinterpretation of CBC data. Current Interpretive Data was last revised on 2018. Blood specimen (specimen) 12/05/2018 9:03 AM PLATING INSPECTOR 12/05/2018 12:36 PM PLATING INSPECTOR Narrative [facility] - 12/05/2018 12:50 PM PLATING INSPECTOR us Antoinette GANNON LAB BLOOD ORDERABLES Final Result [facility] One [facility] Department [place] [address] * Toxoplasma gondii antibody, IgG (12/05/2018 9:03 AM PLATING INSPECTOR) Toxoplasma IgG Negative Negative [facility] Comment: Interpretive Data Negative - ??No detectable antibody. Equivocal - Presence of detectable antibody cannot be determined. Positive - ??Detectable level of antibody present. Current interpretive data was last revised on 2017. Blood specimen (specimen) 12/05/2018 9:03 AM PLATING INSPECTOR 12/05/2018 12:36 PM PLATING INSPECTOR Narrative [facility] - 12/05/2018 2:52 PM PLATING INSPECTOR Antoinette GANNON LAB MICROBIOLOGY - GENERAL ORDERABLES Final Result Performing Organization Address City/[facility] Co de Phone Number [facility] [place] [address] * (ABNORMAL) HIV-1 RNA PCR, quantitative (12/05/2018 9:03 AM PLATING INSPECTOR) [facility] HIV-1 RNA Detected( A) [facility] Comment: Interpretive Data: The quantifiable range of this assay is 20 copies/mL to 10,000,000 copies/mL (1.30 log copies/mL to 7.00 log copies/mL). ??Testing was performed by the NIELS AmpliPrep/NIELS TaqMan HIV-1 Test version 2.0 (Andrés [employer] Testing performed at [facility] Current Interpretive Data was last revised on 2015. HIV-1 RNA, copies/mL 81 copies/mL [facility] HIV-1 RNA, log 1.91 log cps/mL [facility] Blood specimen (specimen) 12/05/2018 9:03 AM PLATING INSPECTOR 12/05/2018 1:02 PM PLATING INSPECTOR Narrative [facility] - 12/06/2018 3:09 PM PLATING INSPECTOR Antoinette GANNON LAB MICROBIOLOGY - GENERAL ORDERABLES Final Result Performing Organization Address City/[facility] Co de Phone Number [facility] [place] [address] * (ABNORMAL) T-helper cells (CD4) count (12/05/2018 9:03 AM PLATING INSPECTOR) [facility] CD4 pct 25(L) 31 - 64 % [facility] CD4 Absolute 560 365 - 1,294 cells/mcL [facility] Blood specimen (specimen) 12/05/2018 9:03 AM PLATING INSPECTOR 12/05/2018 12:36 PM PLATING INSPECTOR Narrative [facility] - 12/05/2018 8:15 PM PLATING INSPECTOR Antoinette GANNON LAB BLOOD ORDERABLES Final Result Performing Organization Address City/[facility]/ZIP Co de Phone Number [facility] Department [place] [address] * CBC with auto differential (12/05/2018 9:03 AM PLATING INSPECTOR) [facility] WBC 4.3 3.8 - 9.9 K/cumm [facility] Hgb 13.0 13.0 - 17.5 g/dL [facility] Hct 39.0 38.9 - 50.3 % [facility] Plt 218 150 - 400 K/cumm [facility] MPV 10.9 9.1 - 12.3 fL [facility] RBC 4.62 4.30 - 5.80 M/cumm [facility] MCV 84.4 81.3 - 96.4 fL [facility] MCH 28.1 27.1 - 33.3 pg [facility] MCHC 33.3 32.3 - 35.7 g/dL [facility] RDW CV 13.6 11.1 - 14.9 % [facility] RDW SD 42.3 35.7 - 48.1 fL [facility] NRBC abs 0.00 0.00 - 0.01 K/cumm [facility] Blood specimen (specimen) 12/05/2018 9:03 AM PLATING INSPECTOR 12/05/2018 12:36 PM PLATING INSPECTOR Narrative [facility] - 12/05/2018 12:50 PM PLATING INSPECTOR Antoinette GANNON LAB BLOOD ORDERABLES Final Result Performing Organization Address City/[facility]/ZIP Co de Phone Number [facility] Department [place] [address] * RPR, serum (12/05/2018 9:03 AM PLATING INSPECTOR) RPR Non-React jason Non-React jason [facility] Comment: Interpretive Data Testing performed by Multiplex Flow Immunoassay. Current interpretive data was last revised on 18. Blood specimen (specimen) 12/05/2018 9:03 AM PLATING INSPECTOR 12/05/2018 12:36 PM PLATING INSPECTOR Narrative [facility] - 12/05/2018 2:51 PM PLATING INSPECTOR Antoinette GANNON LAB MICROBIOLOGY - GENERAL ORDERABLES Final Result [facility] One [facility] Department [place] [address] documented in this encounter Visit Diagnoses Diagnosis STD exposure HIV disease (CMS/HCC) (HCC) Human immunodeficiency virus [HIV] disease documented in this encounter Care Teams Store Assistant Relationship Specialty Start Date End Date Gucci Vilchis MD PCP - General 04/16/17 08/08/22 [facility] Carpet Installation Specialist 10/30/18 12/08/21 documented as of this encounter
--- OUTSIDE RECORDS SUMMARY | 2024-11-22 16:15 | XMS_ITS | Encounter Summary ---
Author Organization [facility] Facility Care Team Providers Care Spanish Teacher Name Role Phone Unavailable Primary Care Provider Unavailabl e Encounter Details Date Type Department Care Team (Latest Contact Info) Description 12/04/2016 1:02 PM DIGITAL CAMPAIGN SPECIALIST - 12/04/2016 11:59 PM DIGITAL CAMPAIGN SPECIALIST Hospital Encounter [facility] Eugenio Clifford MD [address] [address] Encounter for general adult medical examination without abnormal findings; Human immunodeficiency virus (HIV) disease ([facility]) Social History Tobacco Use Types Packs/Day Years Used Date Smoking Tobacco: Never Assessed Sex and Gender Information Value Date Recorded Sex Assigned at Not on file Legal Sex Male 7:55 PM DIGITAL CAMPAIGN SPECIALIST Gender Identity Not on file Sexual Orientation Not on file documented as of this encounter Medications at Time of Discharge darunavir ethanolate (PREZISTA) 800 mg tablet TAKE ONE TABLET (800 MG) BY MOUTH ONCE DAILY WITH FOOD. STORE AT ROOMTEMPERATURE . 08/16/2016 8 lcdkwof-juk-rhax i-tenof ALAFEN (GENVOYA) [phone] mg tablet TAKE ONE TABLET BY MOUTH ONCE DAILY WITH FOOD. STORE IN ORIGINAL CONTAINER AT ROOM TEMPERATURE. 08/16/2016 8 documented as of this encounter Plan of Treatment Not on file documented as of this encounter Procedures Procedure Name Priority Date/Time Associated Diagnosis Comments BLOOD LYMPHOCYTE CD4 Routine 12/04/2016 5:16 PM DIGITAL CAMPAIGN SPECIALIST N. GONORRHOEAE, CHLAMYDIA TRACHOMATIS AMPLIFICATION TEST, CDR Routine 12/04/2016 1:09 PM DIGITAL CAMPAIGN SPECIALIST SERUM RAPID PLASMA REAGIN (RPR) Routine 12/04/2016 1:09 PM DIGITAL CAMPAIGN SPECIALIST SERUM GLUCOSE Routine 12/04/2016 1:09 PM DIGITAL CAMPAIGN SPECIALIST PLASMA HUMAN IMMUNODEFICIENCY VIRUS-1 (HIV-1) RNA Routine 12/04/2016 1:09 PM DIGITAL CAMPAIGN SPECIALIST PLASMA COMPREHENSIVE METABOLIC PANEL Routine 12/04/2016 1:09 PM DIGITAL CAMPAIGN SPECIALIST BLOOD HEMOGLOBIN A1C Routine 12/04/2016 1:09 PM DIGITAL CAMPAIGN SPECIALIST URINALYSIS Routine 12/04/2016 1:09 PM DIGITAL CAMPAIGN SPECIALIST BLOOD CELL COUNT (CBC) Routine 7 1:09 PM DIGITAL CAMPAIGN SPECIALIST BLOOD CELL MORPHOLOGIC EXAM Routine 12/04/2016 1:09 PM DIGITAL CAMPAIGN SPECIALIST SERUM HEPATITIS C AB Routine 12/04/2016 7:09 AM DIGITAL CAMPAIGN SPECIALIST DISCHARGE LABORATORY CUMULATIVE REPORT 12/04/2016 documented in this encounter Results * (ABNORMAL) Blood lymphocyte CD4 (12/04/2016 5:16 PM DIGITAL CAMPAIGN SPECIALIST) CD4 % 29(L) 31 - 64 % CDR HISTOR ICAL RESULTS CD4 cells 590 365 - 1294 cells/mcl CDR HISTORICAL RESULTS Leukocyte, NOS 12/04/2016 5: 16 PM DIGITAL CAMPAIGN SPECIALIST us Eugenio Madera MD LAB BLOOD ORDERABLES F inal Result CDR HISTORICAL RESULTS * Neisseria gonorrhoeae, Chlamydia trachomatis amplification test (12/04/2016 1:09 PM DIGITAL CAMPAIGN SPECIALIST) Urine (Unknown) 12/04/2016 1 :09 PM DIGITAL CAMPAIGN SPECIALIST 12/04/2016 4:52 PM DIGITAL CAMPAIGN SPECIALIST Impressions CDR HISTORICAL RESULTS - 12/05/2016 3:00 PM DIGITAL CAMPAIGN SPECIALIST Testing performed by the Gen-Probe [employer] APTIMA Combo 2 Assay. This nucleic acid amplification test (NAAT) detects ribosomal RNA (rRNA) from Chlamydia trachomatis and Neisseria gonorrhoeae using target capture,and Bioprocess Development Engineer-Mediated Amplification (TMA). This test is approved by the [place] Food and Drug Administration for endocervical, vaginal, and male urethral swab specimens, in addition to male and female urine specimens. The performance characteristics for these specimen types have been verified by the [facility].The performance characteristics of this assay for pharyngeal and rectal specimens collected from cervical swab collection devices have been validated and verified by the [facility]. Verification studies [...] CDR HISTORICAL RESULTS - 12/05/2016 3:00 PM DIGITAL CAMPAIGN SPECIALIST Negative for: ??Chlamydia trachomatis rRNA Negative for: ??Neisseria gonorrhoeae rRNA us Historical Provider LAB MICROBIOLOGY - GENERA L ORDERABLES Final Result CDR HISTORICAL RESULTS * (ABNORMAL) Urinalysis (12/04/2016 1:09 PM DIGITAL CAMPAIGN SPECIALIST) Color, ur Yellow Yellow CDR HISTOR ICAL [...] CDR HISTORICAL RESULTS Urine 12/04/2016 1:09 PM DIGITAL CAMPAIGN SPECIALIST Eugenio Madera MD LAB BLOOD ORDERABLES F inal Result CDR HISTORICAL RESULTS * Serum rapid plasma reagin (RPR) (12/04/2016 1:09 PM DIGITAL CAMPAIGN SPECIALIST) [facility] RPR Nonreactive CDR HIST ORICAL RESULTS Serum 12/04/2016 1:09 PM DIGITAL CAMPAIGN SPECIALIST Eugenio Madera MD LAB BLOOD ORDERABLES F inal Result Performing Organization Address [facility] Co de Phone Number CDR HISTORICAL RESULTS * (ABNORMAL) Plasma comprehensive metabolic panel (12/04/2016 1:09 PM DIGITAL CAMPAIGN SPECIALIST) [facility] Sodium 140 135 - 145 mmol/L CDR [...] CDR HISTORICAL RESULTS Plasma 12/04/2016 1:09 PM DIGITAL CAMPAIGN SPECIALIST Eugenio Madera MD LAB BLOOD ORDERABLES F inal Result CDR HISTORICAL RESULTS * Plasma Human Immunodeficiency virus-1 (HIV-1) RNA (12/04/2016 1:09 PM DIGITAL CAMPAIGN SPECIALIST) [facility] HIV-1 RNA Detected CDR HISTOR ICAL RESULTS Comment: Interpretive Data: The quantifiable range of this assay is 20 copies/mL to 10,000,000 copies/mL (1.30 log copies/mL to 7.00 log copies/mL). ??Testing was performed by the [employer] AmpliPrep/[employer] TaqMan HIV-1 Test version 2.0 ([employer] Testing performed at [facility] Current Interpretive Data was last revised on 2015. HIV-1 RNA 59 copies/ml CDR HISTOR ICAL RESULTS HIV-1 RNA 1.77 log copies/ml CDR HISTORICAL RESULTS Plasma 12/04/2016 1:09 PM DIGITAL CAMPAIGN SPECIALIST us Eugenio Madera MD LAB BLOOD ORDERABLES F inal Result Performing Organization Address City/[facility]/ZIP Co de Phone Number CDR HISTORICAL RESULTS * Serum glucose (12/04/2016 1:09 PM DIGITAL CAMPAIGN SPECIALIST) Glucose 93 70 - 199 mg/dl CDR HISTORICAL RESULTS Serum 12/04/2016 1:09 PM DIGITAL CAMPAIGN SPECIALIST us Eugenio Madera MD LAB BLOOD ORDERABLES F inal Result CDR HISTORICAL RESULTS * (ABNORMAL) Blood cell count (CBC) (12/04/2016 1:09 PM DIGITAL CAMPAIGN SPECIALIST) WBC 4.1 3.8 - 9.9 K/cumm CDR [...] RESULTS Blood specimen (specimen) 12/04/2016 1:09 PM DIGITAL CAMPAIGN SPECIALIST Eugenio Madera MD LAB BLOOD ORDERABLES F inal Result CDR HISTORICAL RESULTS * (ABNORMAL) Blood cell morphologic exam (12/04/2016 1:09 PM DIGITAL CAMPAIGN SPECIALIST) Neutrophils 34.8 % CDR HIST ORICAL RESULTS [...] RESULTS Blood specimen (specimen) 12/04/2016 1:09 PM DIGITAL CAMPAIGN SPECIALIST Eugenio Madera MD LAB BLOOD ORDERABLES F inal Result CDR HISTORICAL RESULTS * Blood hemoglobin A1C (12/04/2016 1:09 PM DIGITAL CAMPAIGN SPECIALIST) Hgb A1C 5.7 4.0 - 6.0 % CDR HISTORICAL RESULTS Estimated average glucose 117 mg/dl CDR HISTORIC AL RESULTS Comment: The ADA recommends reporting an estimated Average Glucose (eAG) with all Hemoglobin A1c results using the equation derived from a study of 507 normal and diabetic adults. ??Minority populations were underrepresented and children were not included. ??(Diabetes Care 31:2125-6251, 2008). ??The eAG is not equivalent to a fasting glucose. Blood specimen (specimen) 12/04/2016 1:09 PM DIGITAL CAMPAIGN SPECIALIST Eugenio Madera MD LAB BLOOD ORDERABLES F inal Result Performing Organization Address City/[facility]/ZIP Co de Phone Number CDR HISTORICAL RESULTS * Serum Hepatitis C ab (12/04/2016 7:09 AM DIGITAL CAMPAIGN SPECIALIST) HCV ab Negative NEG CDR HISTOR ICAL RESULTS Serum 12/04/2016 7:09 AM DIGITAL CAMPAIGN SPECIALIST Narrative CDR HISTORICAL RESULTS - 12/05/2016 6:23 AM DIGITAL CAMPAIGN SPECIALIST Interpretive Data Positive results should be confirmed by a molecular method. If positive, a second separately collected sample should be submitted for Hepatitis C Virus (HCV) RNA Detection and Quantitation by Real-Time Reverse Bioprocess Development Engineer-PCR (RT-PCR). Current interpretive data was last revised on 2016. Eugenio Madera MD LAB BLOOD ORDERABLES F inal Result Performing Organization Address City/[facility] Co de Phone Number CDR [...]
--- OUTSIDE RECORDS SUMMARY | 2024-11-22 16:15 | XMS_ITS | Encounter Summary ---
Author Organization [facility] Address [address] [place] [address] Phone Care Team Providers Care Seat Cover Installer Name Role Phone Gucci Vilchis MD Primary Care Provider [phone] Reason for Visit * Reason Comments Follow-up * Consultation (Routine) - Canceled Specialty Diagnoses / Procedures Referred By Markell tong Referred To Contact Infectious Diseases Diagnoses HIV disease (CMS/HCC) (HCC) Be Knight SaloTERESSA Phone: tel: fax: [facility] (All Locations) Referral ID Status Reason Start Date Expiration Date Visits Requested Visits Authorized [id number] Canceled Specialty Services Required 03/24/2020 10/03/[phone] Encounter Details Date Type Department Care Team (Late st Contact Info) Description 10/29/2020 2:40 PM WEARING APPAREL ASSEMBLER Office Visit [facility] Infectious Diseases [address] [place] [address] [address] [place] [address] Anne Barros, DIAMOND [address] [place] [address] HIV disease (CMS/HCC) (Primary Dx); Long-term use of high-risk medication Social History Tobacco Use Types Packs/Day Years Used Date Smoking Tobacco: Never Smokeless Tobacco: Never Sex and Gender Information Value Date Recorded Sex Assigned at Not on file Legal Sex Male 7:55 PM WEARING APPAREL ASSEMBLER Gender Identity Not on file Sexual Orientation Not on file documented as of this encounter Last Filed Vital Signs Vital Sign Reading Time Taken Comments Blood Pressure 115/69 10/29/2020 2:57 PM WEARING APPAREL ASSEMBLER Pulse 82 10/29/2020 2:57 PM WEARING APPAREL ASSEMBLER Temperature 36.3 ??C (97.3 ??F) 10/29/2020 2:57 PM CS T Respiratory Rate - - Oxygen Saturation - - Inhaled Oxygen Concentration - - Weight 98.9 kg (218 lb) 10/29/2020 2:57 PM WEARING APPAREL ASSEMBLER Height 182.9 cm (6') 10/29/2020 2:57 PM WEARING APPAREL ASSEMBLER Body Mass Index 29.57 10/29/2020 2:57 PM WEARING APPAREL ASSEMBLER documented in this encounter Ordered Prescriptions Prescription Sig Dispense Quantity Refills Last Filled Start Date End Date darunavir ethanolate (Prezista) 800 mg tabletIndications: HIV disease (CMS/HCC) (HCC) Take 1 tablet (800 mg total) by mouth daily 30 tablet 2 10/29/2020 06/28/2021 hncvtxs-aum-qztdf- tenof ALAFEN (Genvoya) [id number] mg tabletIndications: HIV disease (CMS/HCC) (HCC) Take [...] trachomatis rRNA Negative for: Neisseria gonorrhoeae rRNA [id number] NOT DETECTED 12/31/2012 [id number] NOT DETECTED 12/31/2012 [id number] NOT DETECTED 11/25/2013 [id number] NOT DETECTED 11/25/2013 No results found for: TRICHOMONU ANNUAL LABS AND SCREENING -TB SCREENING Lab Results Component Value Date IFNGAMMAREL Negative 07/05/2018 [id number] See Comment 08/16/2016 PPD Negative 10/29/2020 -LIPIDS [...] PAP No results found for: HIRSKHPVRNA, HPVG16, [id number], SEOSDZQS3P4 -PROSTATE CANCER SCREENING IF HIGH RISK No results found for: PSA BASELINE SCREENING -HEPATITIS A IMMUNITY STATUS Lab Results Component Value Date HAV Positive (A) 08/16/2016 -HEPATITIS B IMMUNITY STATUS Lab Results Component Value Date HEPBSAB Positive 08/16/2016 HEPBSAB 384 08/16/2016 -TOXOPLASMA IMMUNITY STATUS Lab Results Component Value Date TOXOIGG Negative 12/05/2018 [id number] < OR = 0.90 11/25/2013 -CMV IMMUNITY STATUS No results found for: CMVIGG -G6PD LEVEL (NORMAL >4.6) Lab Results Component Value Date G6PD Normal 08/16/2016 -[id number] STATUS Lab Results Component Value Date [id number] Negative 11/25/2013 Assessment/Plan Mr. DASHAWN HOWELL is [...] counseling and adherence counseling provided. Orders: - zjcnqks-kti-qysqd-tenof ALAFEN (Genvoya) [id number] mg tablet; Take 1 tablet by mouth [...] HIV-1 integrase genotype; Future - HIV-1 veena UT-RT resistance P; Future - Comprehensive metabolic panel, without glucose (Outreach) - Glucose, random (Outreach) - Differential, auto - Urinalysis, microscopic only Long-term use of high-risk medication (Z79.899) Encounter for long-term (current) use of high-risk medication (Z79.899) RTC 3 months The supervising physician present in this office suite is Dr. Bird May. ING APPAREL ASSEMBLER documented in this encounter Miscellaneous Notes * Assessment & Plan Note - Anne Barros NP - 11/18/2020 9:10 AM WEARING APPAREL ASSEMBLER Associated Problem(s): HIV infection (HCC) Continue Genvoya/Prezista with 100% adherence encouraged to maintain viral suppression and prevent resistance. Undetectable = untransmittable. Risk reduction counseling and adherence counseling provided. ING APPAREL ASSEMBLER * Addendum Note - Yolanda Cruz RMA - 10/29/2020 2:40 PM CSTAddended by: YOLANDA CRUZ on: 12/09/2020 01:36 PM Modules accepted: Orders ING APPAREL ASSEMBLER documented in this encounter Plan of Treatment Not on file documented as of this encounter Procedures Procedure Name Priority Date/Time Associated Diagnosis Comments N. GONORRHOEAE/C. TRACHOMATIS AMPLIFICATION Routine 10/29/2020 3:36 PM WEARING APPAREL ASSEMBLER HIV disease ([facility]/HCC) T-SPOT.TB Routine 10/29/2020 3:36 PM WEARING APPAREL ASSEMBLER HIV disease (CMS/HCC) GLUCOSE, RANDOM (OUTREACH) Routine 10/29/2020 3:36 PM WEARING APPAREL ASSEMBLER HIV disease ([facility]/HCC) DIFFERENTIAL AUTO Routine 10/29/2020 3:3 6 PM WEARING APPAREL ASSEMBLER HIV disease (CMS/HCC) COMPREHENSIVE METABOLIC PANEL WITHOUT GLUCOSE (OUTREACH) Routine 10/29/2020 3:36 PM WEARING APPAREL ASSEMBLER HIV disease (CMS/HCC) COMPREHENSIVE METABOLIC PANEL (OUTREACH) Routine 10/29/2020 3:36 PM WEARING APPAREL ASSEMBLER HIV disease (CMS/HCC) URINALYSIS AND REFLEX TO MICROSCOPIC AND CULTURE Routine 10/29/2020 3:36 PM WEARING APPAREL ASSEMBLER HIV disease (CMS/HCC) CBC WITH AUTO DIFFERENTIAL Routine 10/29/2020 3:36 PM WEARING APPAREL ASSEMBLER HIV disease (CMS/HCC) HEPATITIS C ANTIBODY Routine 10/29/2020 3:36 PM WEARING APPAREL ASSEMBLER HIV disease (CMS/HCC) HIV-1 RNA, QUANTITATIVE, PCR Routine 10/29/2020 3:36 PM WEARING APPAREL ASSEMBLER HIV disease (CMS/HCC) RPR Routine 10/29/2020 3:36 PM WEARING APPAREL ASSEMBLER HIV disease (CMS/HCC) URINALYSIS, MICROSCOPIC ONLY Routine 10/29/2020 3:36 PM WEARING APPAREL ASSEMBLER HIV disease (CMS/HCC) T-HELPER CELLS (CD4) COUNT Routine 10/29/2020 3:36 PM WEARING APPAREL ASSEMBLER HIV disease (CMS/HCC) HEMOGLOBIN A1C Routine 10/29/2020 3:36 PM WEARING APPAREL ASSEMBLER HIV disease (CMS/HCC) LIPID PANEL Routine 10/29/2020 3:36 PM WEARING APPAREL ASSEMBLER HIV disease (CMS/HCC) documented in this encounter Results * (ABNORMAL) Urinalysis, microscopic only (10/29/2020 3:36 PM WEARING APPAREL ASSEMBLER) WBC, ur 0-5 0 - 5 /HPF [facility] RBC, ur 0-2 0 - 2 /HPF [facility] Mucous, ur Present(A) [facility] Culture Reflex Comment Reflex conditions for urine culture (WBC >10) not met. [facility] Urine, clean voided 10/29/2020 3:36 PM WEARING APPAREL ASSEMBLER 10/29/2020 6:06 PM WEARING APPAREL ASSEMBLER Anne Barros NP LAB URINE ORDERABLES F inal Result [facility] [place] [address] * (ABNORMAL) Differential, auto (10/29/2020 3:36 PM WEARING APPAREL ASSEMBLER) Neutrophil abs 1.1(L) 1.7 - 6.5 K/cumm [facility] Imm gran abs 0.0 0.0 - 0.1 K/cumm [facility] Lymphocyte abs 1.6 0.8 - 3.3 K/cumm [facility] Monocyte abs 0.3 0.2 - 0.8 K/cumm [facility] Eosinophil abs 0.1 0.0 - 0.5 K/cumm [facility] Basophil abs 0.0 0.0 - 0.1 K/cumm [facility] Neutrophil pct 34.2 % [facility] Comment: Interpretive Data Percent cell count reference ranges are not reported, since discordance with absolute values may lead to misinterpretation of CBC data. Current Interpretive Data was last revised on 2018. Imm gran pct 0.3 % [facility] Comment: Interpretive Data Percent cell count reference ranges are not reported, since discordance with absolute values may lead to misinterpretation of CBC data. Current Interpretive Data was last revised on 2018. Lymphocyte pct 51.3 % [facility] Comment: Interpretive Data Percent cell count reference ranges are not reported, since discordance with absolute values may lead to misinterpretation of CBC data. Current Interpretive Data was last revised on 2018. Monocyte pct 9.8 % [facility] Comment: Interpretive Data Percent cell count reference ranges are not reported, since discordance with absolute values may lead to misinterpretation of CBC data. Current Interpretive Data was last revised on 2018. Eosinophil pct 3.8 % [facility] Comment: Interpretive Data Percent cell count reference ranges are not reported, since discordance with absolute values may lead to misinterpretation of CBC data. Current Interpretive Data was last revised on 2018. Basophil pct 0.6 % [facility] Comment: Interpretive Data Percent cell count reference ranges are not reported, since discordance with absolute values may lead to misinterpretation of CBC data. Current Interpretive Data was last revised on 2018. Blood specimen (specimen) 10/29/2020 3:36 PM WEARING APPAREL ASSEMBLER 10/29/2020 6:06 PM WEARING APPAREL ASSEMBLER Anne Barros NP LAB BLOOD ORDERABLES F inal Result Performing Organization Address [facility] de Phone Number [facility] [email or web address] [address] * Glucose, random (Outreach) (10/29/2020 3:36 PM WEARING APPAREL ASSEMBLER) Glucose 99 70 - 199 mg/dL [facility] [...] 2017. Blood specimen (specimen) 10/29/2020 3:36 PM WEARING APPAREL ASSEMBLER 10/29/2020 6:07 PM WEARING APPAREL ASSEMBLER Anne Barros NP LAB BLOOD ORDERABLES F inal Result Performing Organization Address [facility] Co de Phone Number [facility] [email or web address] [address] * Comprehensive metabolic panel, without glucose (Outreach) (10/29/2020 3:36 PM WEARING APPAREL ASSEMBLER) [facility] Sodium 140 135 - 145 mmol/L [facility] Potassium, pl 3.6 3.3 - 4.9 mmol/L [facility] Chloride 105 97 - 110 mmol/L [facility] CO2 26 22 - 32 mmol/L [facility] Anion gap 9 2 - 15 mmol/L [facility] BUN 12 8 - 25 mg/dL [facility] Creatinine 1.03 0.80 - 1.30 mg/dL [facility] Calcium 9.1 8.5 - 10.3 mg/dL [facility] Protein, pl 8.4 6.5 - 8.5 g/dL [facility] Albumin 4.7 3.5 - 5.0 g/dL [facility] Bilirubin, total 0.2 0.1 - 1.2 mg/dL [facility] Alk phos 66 40 - 130 Units/L [facility] AST 25 10 - 50 Units/L [facility] ALT 29 7 - 55 Units/L [facility] Blood specimen (specimen) 10/29/2020 3:36 PM WEARING APPAREL ASSEMBLER 10/29/2020 6:06 PM WEARING APPAREL ASSEMBLER us Anne Barros NP LAB BLOOD ORDERABLES F inal Result [facility] [place] [address] * (ABNORMAL) HIV-1 RNA PCR, quantitative (10/29/2020 3:36 PM WEARING APPAREL ASSEMBLER) [facility] HIV-1 RNA Detected( A) [facility] Comment: Interpretive Data: The quantifiable range of this assay is 20 copies/mL to 10,000,000 copies/mL (1.30 log copies/mL to 7.00 log copies/mL). ??Testing was performed by the [employer] AmpliPrep/NIELS TaqMan HIV-1 Test version 2.0 ([employer] Testing performed at [facility] Current Interpretive Data was last revised on 2015. HIV-1 RNA, copies/mL 235,617 copies/mL [facility] HIV-1 RNA, log 5.37 log cps/mL [facility] Blood specimen (specimen) 10/29/2020 3:36 PM WEARING APPAREL ASSEMBLER 10/29/2020 7:43 PM WEARING APPAREL ASSEMBLER us Anne Barros NP LAB MICROBIOLOGY - GEN ERAL ORDERABLES Final Result [facility] [place] [address] * (ABNORMAL) Lipid panel (10/29/2020 3:36 PM WEARING APPAREL ASSEMBLER) Cholesterol 200(H) 30 - 199 mg/dL [facility] Comment: Interpretive Data Ages < or = [...] on 2018. Triglycerides 259(H) <=149 mg/dL [facility] Comment: Interpretive Data Ages < or = [...] on 2018. HDL 37(L) >=40 mg/dL [facility] Comment: Interpretive Data Ages < or = [...] 2018. LDL, calculated 111 <=129 mg/dL [facility] Comment: Interpretive Data Ages < or = [...] on 2018. Non-HDL Cholesterol 163 mg/dL [facility] Comment: Interpretive Data Ages < or = [...] last revised on 2018. Chol/HDL ratio 5 [facility] Blood specimen (specimen) 10/29/2020 3:36 PM WEARING APPAREL ASSEMBLER 10/29/2020 6:06 PM WEARING APPAREL ASSEMBLER Anne Barros NP LAB BLOOD ORDERABLES F inal Result Performing Organization Address [facility] de Phone Number [facility] [place] [address] * N. gonorrhoeae/C. trachomatis Amplification Urine (10/29/2020 3:36 PM WEARING APPAREL ASSEMBLER) C. trachomatis Not Detected Not Detected [facility] N. gonorrhoeae Not Detected Not Detected [facility] Comment: Interpretive Data Testing performed by [employer]. This assay detects Chlamydia trachomatis and Neisseria gonorrhoeae by nucleic acid amplification testing (NAAT). This test is approved by the [facility] Food and Drug Administration and the performance characteristics have been verified by the performing laboratory. Current Interpretive Data was last revised on 2020. Urine (None) 10/29/2020 3:36 PM WEARING APPAREL ASSEMBLER 10/29/2020 7:32 PM WEARING APPAREL ASSEMBLER Anne Barros NP LAB MICROBIOLOGY - GEN ERAL ORDERABLES Final Result Performing Organization Address [facility] de Phone Number [facility] [place] [address] * RPR (10/29/2020 3:36 PM WEARING APPAREL ASSEMBLER) Pathologist [facility] RPR Nonreactive Nonreactive [facility] Blood specimen (specimen) 10/29/2020 3:36 PM WEARING APPAREL ASSEMBLER 10/29/2020 6:07 PM WEARING APPAREL ASSEMBLER Anne Barros NP LAB MICROBIOLOGY - GEN ERAL ORDERABLES Final Result [facility] [place] [address] * T-SPOT.TB (10/29/2020 3:36 PM WEARING APPAREL ASSEMBLER) [facility] T-SPOT.TB Negative SeeBelow [facility] Comment: Normal Value: Negative A negative [...] test. T-SPOT.TB Panel A Spot Count 1 [facility] T-SPOT.TB Panel B Spot Count 2 [facility] T-SPOT.TB Negative Control Passed [facility] T-SPOT.TB Positive Control Passed [facility] Comment: Test Performed at: [address] [place], [place] ??[address] ? CONOR WALL MD,PHD Blood specimen (specimen) 10/29/2020 3:36 PM WEARING APPAREL ASSEMBLER 10/29/2020 6:11 PM WEARING APPAREL ASSEMBLER Anne Barros NP LAB MICROBIOLOGY - GEN ERAL ORDERABLES Final Result Performing Organization Address [facility] de Phone Number [facility] [place] [address] * (ABNORMAL) T-helper cells (CD4) count (10/29/2020 3:36 PM WEARING APPAREL ASSEMBLER) Pathologist [facility] CD4 pct 15(L) 31 - 64 % [facility] Comment:Repeated and verifie d. CD4 Absolute 242(L) 365 - 1,294 cells/mcL [facility] Comment:Repeated and verifie d. Blood specimen (specimen) 10/29/2020 3:36 PM WEARING APPAREL ASSEMBLER 10/29/2020 6:07 PM WEARING APPAREL ASSEMBLER Anne Barros NP LAB BLOOD ORDERABLES F inal Result Performing Organization Address [facility] de Phone Number [facility] [place] [address] * (ABNORMAL) Urinalysis reflex to microscopic and culture Urine, clean voided (10/29/2020 3:36 PM WEARING APPAREL ASSEMBLER) Pathologist [facility] Color, ur Yellow Yellow [facility] Clarity, ur Clear Clear [facility] Specific gravity, ur 1.023 1.010 - 1.025 [facility] pH, urine 6 [facility] Protein, ur ql Negative Negative [facility] Glucose, ur ql Negative Negative [facility] Ketones, ur Negative Negative [facility] Bilirubin, ur Negative Negative [facility] Blood, ur Negative Negative [facility] Comment:Ascorbic acid identi fied in urine; possible false negative blood result. A microscopic exam will be added to identify RBCs. Urobilinogen, ur 2.0(A) <2.0 mg/dL [facility] Nitrite, ur Negative Negative [facility] Leukocyte esterase, ur Negative Negative [facility] UA reflex comment Reflex to microscopic UA will be performed. [facility] Urine, clean voided 10/29/2020 3:36 PM WEARING APPAREL ASSEMBLER 10/29/2020 6:06 PM WEARING APPAREL ASSEMBLER Narrative [facility] - 10/29/2020 6:17 PM WEARING APPAREL ASSEMBLER ?? Urine pH is affected by diet, medications, systemic acid-base disturbances, and renal tubular function. ??pH may affect urinary stone formation. ??For example, urine pH below 6.0 may help reduce the tendency for calcium phosphate stones and pH greater than 6.0 may reduce the tendency for uric acid stone formation. Source: [facility] [email or web address]. Last revised 11-22-2017 Anne Barros NP LAB MICROBIOLOGY - GEN ERAL ORDERABLES Final Result Performing Organization Address [facility] Co de Phone Number [facility] [email or web address] [address] * Hepatitis C antibody (10/29/2020 3:36 PM WEARING APPAREL ASSEMBLER) Pathologist [facility] Hep C Ab Nonreactive Nonreactive [facility] Comment:Antibodies to HCV no t detected. Does NOT exclude the possibility of recent exposure to HCV. Blood specimen (specimen) 10/29/2020 3:36 PM WEARING APPAREL ASSEMBLER 10/29/2020 6:06 PM WEARING APPAREL ASSEMBLER Anne Barros NP LAB MICROBIOLOGY - GEN ERAL ORDERABLES Edited Result - Final Performing Organization Address [facility] de Phone Number [facility] [email or web address] [address] * (ABNORMAL) Hemoglobin A1c (10/29/2020 3:36 PM WEARING APPAREL ASSEMBLER) Hgb A1C 6.0(H) 4.0 - 5.6 % [facility] Estimated Average Glucose 126 mg/dL [facility] Comment: The ADA recommends reporting an estimated Average Glucose (eAG) with all Hemoglobin A1c results using the equation derived from a study of 507 normal and diabetic adults. ??Minority populations were underrepresented and children were not included. ?? (Diabetes Care 31:3829-5105, 2008). ??The eAG is not equivalent to a fasting glucose. Blood specimen (specimen) 10/29/2020 3:36 PM WEARING APPAREL ASSEMBLER 10/29/2020 6:06 PM WEARING APPAREL ASSEMBLER Anne Barros NP LAB BLOOD ORDERABLES F inal Result Performing Organization Address [facility] de Phone Number [facility] [email or web address] [address] * (ABNORMAL) CBC with auto differential (10/29/2020 3:36 PM WEARING APPAREL ASSEMBLER) [facility] WBC 3.2(L) 3.8 - 9.9 K/cumm [facility] Hgb 12.1(L) 13.0 - 17.5 g/dL [facility] Hct 37.2(L) 38.9 - 50.3 % [facility] Plt 203 150 - 400 K/cumm [facility] MPV 10.3 9.1 - 12.3 fL [facility] RBC 4.54 4.30 - 5.80 M/cumm [facility] MCV 81.9 81.3 - 96.4 fL [facility] MCH 26.7(L) 27.1 - 33.3 pg [facility] MCHC 32.5 32.3 - 35.7 g/dL [facility] RDW CV 13.5 11.1 - 14.9 % [facility] RDW SD 40.3 35.7 - 48.1 fL [facility] NRBC abs 0.00 0.00 - 0.01 K/cumm [facility] Blood specimen (specimen) 10/29/2020 3:36 PM WEARING APPAREL ASSEMBLER 10/29/2020 6:06 PM WEARING APPAREL ASSEMBLER Anne Barros NP LAB BLOOD ORDERABLES F inal Result Performing Organization Address [facility]/ZIP Co de Phone Number [facility] [place] [address] documented in this encounter Visit Diagnoses Diagnosis HIV disease (CMS/HCC) (HCC)- Primary Human immunodeficiency virus [HIV] disease Long-term use of high-risk medication documented in this encounter Discontinued Medications Medication Sig Discontinue Reason Start Date End Da te PREZISTA 800 mg tablet TAKE ONE TABLET BY MOUTH ONCE DAILY. Reorder 11/13/2019 10/29/2020 GENVOYA [phone] mg tablet TAKE ONE TABLET BY MOUTH ONCE DAILY WITH FOOD. Reorder 11/14/2019 10/29/2020 documented as of this encounter Orders Immunization/Injection Count Last Ordered Date First Ordered Date FLU VACCINE MDCK QUAD PF 4Y+ IM - FLUCELVAX 1 12/09/2020 documented in this encounter Care Teams Seat Cover Installer Relationship Specialty Start Date End Date Gucci Vilchis MD PCP - General 04/16/17 08/08/22 [facility] Public Relations Manager 10/30/18 12/08/21 documented as of this encounter
--- OUTSIDE RECORDS SUMMARY | 2024-11-22 16:15 | XMS_ITS | Encounter Summary ---
Author Organization [facility] Address [address] [facility] [address] [place] [address] Phone Care Team Providers Care Hog Trader Name Role Phone Gucci Vilchis MD Primary Care Provider [phone] Encounter Details Date Type Department Care Team (Late st Contact Info) Description 12/05/2018 9:00 AM LABORER DRYING DEPARTMENT Office Visit [facility] Infectious Diseases [address] [place] [phone] Exposure to communicable disease (Primary Dx) Social History Tobacco Use Types Packs/Day Years Used Date Smoking Tobacco: Never Smokeless Tobacco: Never Sex and Gender Information Value Date Recorded Sex Assigned at Not on file Legal Sex Male 7:55 PM LABORER DRYING DEPARTMENT Gender Identity Not on file Sexual Orientation Not on file documented as of this encounter Progress Notes * Risa Chase MA - 12/05/2018 9:00 AM CST PT CAME IN FOR INJECTION RER DRYING DEPARTMENT documented in this encounter Plan of Treatment [...] :Sexually Transmitted Infection Given 12/05/2018 9:18 AM LABORER DRYING DEPARTMENT 2.4 Million Units Right Ventrogluteal documented in this encounter Care Teams Hog Trader Relationship Specialty Start Date End Date Gucci Vilchis MD PCP - General 04/16/17 08/08/22 [facility] Window Shade Cutter And Mounter 10/30/18 12/08/21 documented as of this encounter
--- OUTSIDE RECORDS SUMMARY | 2024-11-22 16:15 | XMS_ITS | Encounter Summary ---
Author Organization [facility] Healthcare Address [address] [place] [address] Care Team Providers Care Online Merchandiser Name Role Phone Gucci Vilchis MD Primary Care Provider [phone] Encounter Details Date Type Department Care Team (Late st Contact Info) Description 12/14/2020 1:55 PM DIRECTIONAL SURVEY DRAFTER Lab [address] [address] Social History Tobacco Use Types Packs/Day Years Used Date Smoking Tobacco: Never Smokeless Tobacco: Never Sex and Gender Information Value Date Recorded Sex Assigned at Not on file Legal Sex Male 7:55 PM DIRECTIONAL SURVEY DRAFTER Gender Identity Not on file Sexual Orientation Not on file documented as of this encounter Plan of Treatment Not on file documented as of this encounter Visit Diagnoses Not on filedocumented in this encounter Care Teams Online Merchandiser Relationship Specialty Start Date End Date Gucci Vilchis MD PCP - General 04/16/17 08/08/22 [facility] [place] Hydramatic Mechanic 10/30/18 12/08/21 documented as of this encounter
--- OUTSIDE RECORDS SUMMARY | 2024-11-22 16:15 | XMS_ITS | Encounter Summary ---
[facility] Organization [facility] Care Team Providers Care Stone And Concrete Washer Name Role Phone Unavailable Primary Care Provider Unavailabl e Encounter Details Date Type Department Care Team (Late st Contact Info) Description 11/25/2013 - 11/11/2014 11:59 PM RATE MARKER Hospital Encounter [facility] Social History Tobacco Use Types Packs/Day Years Used Date Smoking Tobacco: Never Assessed Sex and Gender Information Value Date Recorded Sex Assigned at Not on file Legal Sex Male 7:55 PM RATE MARKER Gender Identity Not on file Sexual Orientation [...]
--- OUTSIDE RECORDS SUMMARY | 2024-11-22 16:15 | XMS_ITS | Encounter Summary ---
Author Organization [facility] Address [address] [facility] [address] [place] [address] Phone Care Team Providers Care Vacuum Pan Operator Name Role Phone Gucci Vilchis MD Primary Care Provider [phone] Reason for Visit * Reason Onset Date Comments vl detectable; has been off meds 12/07/2020 Encounter Details Date Type Department Care Team (Late st Contact Info) Description 12/07/2020 Telephone [facility] Infectious Diseases [address] [place] [address] [address] [place] [address] Tequila Luu RN vl detectable; has been off meds Social History Tobacco Use Types Packs/Day Years Used Date Smoking Tobacco: Never Smokeless Tobacco: Never Sex and Gender Information Value Date Recorded Sex Assigned at Not on file Legal Sex Male 7:55 PM SHOOTING GALLERY OPERATOR Gender Identity Not on file Sexual [...] made for 12/14; next Sunday. Pt agreeable. TING GALLERY OPERATOR documented in this encounter Plan of Treatment Not on file documented as of this encounter Visit Diagnoses Not on filedocumented in this encounter Care Teams Vacuum Pan Operator Relationship Specialty Start Date End Date Gucci Vilchis MD PCP - General 04/16/17 08/08/22 [facility] Applications Sales Consultant 10/30/18 12/08/21 documented as of this encounter
--- OUTSIDE RECORDS SUMMARY | 2024-11-22 16:15 | XMS_ITS | Encounter Summary ---
Author Organization [facility] Address [address] [place] [address] Phone Care Team Providers Care Cyber Intel Planner Name Role Phone Gucci Vilchis MD Primary Care Provider [phone] Encounter Details Date Type Department Care Team (Late st Contact Info) Description 07/05/2018 9:45 AM CDT Office Visit [facility] Infectious Diseases [address] [place] [address] [address] [place] [address] Antoinette Riley PA [address] [facility] [address] [place] [address] HIV disease (CMS/HCC) (Primary Dx); Other iron deficiency anemia; Long-term use of high-risk medication Social History Tobacco Use Types Packs/Day Years Used Date Smoking Tobacco: Never Smokeless Tobacco: Never Sex and Gender Information Value Date Recorded Sex Assigned at Not on file 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 Trevor Sanchez. [...] RNA PCR, quantitative (07/05/2018 10:30 AM CDT) [facility] HIV-1 RNA Not Detected [facility] Comment: Interpretive Data: The quantifiable range of this assay is 20 copies/mL to 10,000,000 copies/mL (1.30 log copies/mL to 7.00 log copies/mL). ??Testing was performed by the [employer] AmpliPrep/NIELS TaqMan HIV-1 Test version 2.0 ([employer] Testing performed at [facility] Current Interpretive Data was last revised on 2015. Blood specimen (specimen) 07/05/2018 10:30 AM CDT 07/05/2018 12:18 PM CDT Narrative [facility] - 07/08/2018 7:31 AM CDT Antoinette GANNON LAB MICROBIOLOGY - GENERAL ORDERABLES Final Result Performing Organization Address [facility] de Phone Number [facility] [place] [address] * (ABNORMAL) Urinalysis, microscopic only (07/05/2018 10:29 AM CDT) WBC, ur 0-5 0 - 5 /HPF [facility] RBC, ur 0-5 0 - 5 /HPF [facility] Epithelial cells, squamous, ur 1-5 0 - 5 /HPF [facility] Mucous, ur Present(A) [facility] Urine 07/05/2018 10:2 9 AM CDT 07/05/2018 11:56 AM CDT Narrative [facility] - 07/05/2018 12:15 PM CDT Antoinette GANNON LAB URINE ORDERABLES Final Result Performing Organization Address [facility] Phone Number [facility] [place] [address] * Glucose, random (Outreach) (07/05/2018 10:29 AM CDT) Glucose 97 70 - 199 mg/dL [facility] Comment: Interpretive Data Fasting glucose >/= [...] CDT 07/05/2018 11:56 AM CDT Narrative [facility] - 07/05/2018 12:27 PM CDT Antoinette GANNON LAB BLOOD ORDERABLES Final Result Performing Organization Address City/[facility]/ZIP Co de Phone Number [facility] Department [place] [address] * Comprehensive metabolic panel, without glucose (Outreach) (07/05/2018 10:29 AM CDT) Pathologist [facility] Sodium 138 135 - 145 mmol/L [facility] Potassium, pl 3.8 3.3 - 4.9 mmol/L [facility] Chloride 104 97 - 110 mmol/L [facility] CO2 28 22 - 32 mmol/L [facility] Anion gap 6 2 - 15 mmol/L [facility] BUN 9 8 - 25 mg/dL [facility] Creatinine 0.91 0.80 - 1.30 mg/dL [facility] Calcium 9.4 8.5 - 10.3 mg/dL [facility] Protein, pl 8.2 6.5 - 8.5 g/dL [facility] Albumin 4.6 3.5 - 5.0 g/dL [facility] Bilirubin, total 0.3 0.1 - 1.2 mg/dL [facility] Alk phos 57 40 - 130 Units/L [facility] AST 25 10 - 50 Units/L [facility] ALT 37 7 - 55 Units/L [facility] Blood specimen (specimen) 07/05/2018 10:29 AM CDT 07/05/2018 11:56 AM CDT [facility] 07/05/2018 12:31 PM CDT Antoinette GANNON LAB BLOOD ORDERABLES Final Result [facility] [place] [address] * (ABNORMAL) Differential, auto (07/05/2018 10:29 AM CDT) Neutrophil abs 1.1(L) 1.7 - 6.5 K/cumm [facility] Imm gran abs 0.0 0.0 - 0.1 K/cumm [facility] Lymphocyte abs 2.2 0.8 - 3.3 K/cumm [facility] Monocyte abs 0.4 0.2 - 0.8 K/cumm [facility] Eosinophil abs 0.2 0.0 - 0.5 K/cumm [facility] Basophil abs 0.0 0.0 - 0.1 K/cumm [facility] Neutrophil pct 28.1 % [facility] Comment: Interpretive Data Percent cell count reference ranges are not reported, since discordance with absolute values may lead to misinterpretation of CBC data. Current Interpretive Data was last revised on 2018. Imm gran pct 0.3 % [facility] Comment: Interpretive Data Percent cell count reference ranges are not reported, since discordance with absolute values may lead to misinterpretation of CBC data. Current Interpretive Data was last revised on 2018. Lymphocyte pct 56.9 % [facility] Comment: Interpretive Data Percent cell count reference ranges are not reported, since discordance with absolute values may lead to misinterpretation of CBC data. Current Interpretive Data was last revised on 2018. Monocyte pct 9.7 % [facility] Comment: Interpretive Data Percent cell count reference ranges are not reported, since discordance with absolute values may lead to misinterpretation of CBC data. Current Interpretive Data was last revised on 2018. Eosinophil pct 4.2 % [facility] Comment: Interpretive Data Percent cell count reference ranges are not reported, since discordance with absolute values may lead to misinterpretation of CBC data. Current Interpretive Data was last revised on 2018. Basophil pct 0.8 % [facility] Comment: Interpretive Data Percent cell count reference ranges are not reported, since discordance with absolute values may lead to misinterpretation of CBC data. Current Interpretive Data was last revised on 2018. Blood specimen (specimen) 07/05/2018 10:29 AM CDT 07/05/2018 11:56 AM CDT Narrative [facility] - 07/05/2018 12:12 PM CDT Antoinette GANNON LAB BLOOD ORDERABLES Final Result Performing Organization Address [facility] de Phone Number [facility] [place] [address] * Hepatitis C antibody (07/05/2018 10:29 AM CDT) Pathologist [facility] Hep C Ab Nonreactive Nonreactive [facility] Comment: Interpretive Data Positive and greyzone results should be confirmed by a molecular method. If positive or greyzone, a second separately collected sample should be submitted for Hepatitis C Virus RNA. Detection and Quantitation by Real-Time Reverse Ceramics Technician-PCR.Current Interpretive data was last revised on 2017. Blood specimen (specimen) 07/05/2018 10:29 AM CDT 07/05/2018 11:56 AM CDT Narrative [facility] - 07/05/2018 12:56 PM CDT Antoinette GANNON LAB MICROBIOLOGY - GENERAL ORDERABLES Edited Result - Final Performing Organization Address [facility] de Phone Number [facility] Department [place] [address] * (ABNORMAL) Lipid panel (07/05/2018 10:29 AM CDT) [facility] Cholesterol 294(H) 30 - 199 mg/dL [facility] Comment: Interpretive Data Ages < or [...] on 2018. Triglycerides 140 <=149 mg/dL [facility] Comment: Interpretive Data Ages < or [...] on 2018. HDL 51 >=40 mg/dL [facility] Comment: Interpretive Data Ages < or [...] 2018. LDL, calculated 215(H) <=129 mg/dL [facility] Comment: Interpretive Data Ages < or [...] on 2018. Non-HDL Cholesterol 243 mg/dL [facility] Comment: Interpretive Data Ages < or [...] last revised on 2018. Chol/HDL ratio 6 [facility] Blood specimen (specimen) 07/05/2018 10:29 AM CDT 07/05/2018 11:56 AM CDT Narrative [facility] - 07/05/2018 12:31 PM CDT us Antoinette GANNON LAB BLOOD ORDERABLES Final Result [facility] [place] [address] * Hemoglobin A1c (07/05/2018 10:29 AM CDT) Hgb A1C 5.6 4.0 - 5.6 % [facility] Estimated Average Glucose 114 mg/dL [facility] Comment: The ADA recommends reporting an estimated Average Glucose (eAG) with all Hemoglobin A1c results using the equation derived from a study of 507 normal and diabetic adults. ??Minority populations were underrepresented and children were not included. ?? (Diabetes Care 31:3720-7686, 2007). ??The eAG is not equivalent to a fasting glucose. Blood specimen (specimen) 07/05/2018 10:29 AM CDT 07/05/2018 11:56 AM CDT Narrative [facility] - 07/05/2018 12:21 PM CDT Antoinette GANNON LAB BLOOD ORDERABLES Final Result [facility] [place] [address] * (ABNORMAL) Urinalysis reflex for neutropenic patient Urine (07/05/2018 10:29 AM CDT) Pathologist [facility] Color, ur Yellow Yellow [facility] Clarity, ur Clear Clear [facility] Specific gravity, ur 1.019 1.010 - 1.025 [facility] pH, urine 5.0 [facility] Protein, ur ql Negative Negative [facility] Glucose, ur ql Negative Negative [facility] Ketones, ur Negative Negative [facility] Bilirubin, ur Negative Negative [facility] Blood, ur 1+(A) Negative [facility] Urobilinogen, ur <2.0 <2.0 mg/dL [facility] Nitrite, ur Negative Negative [facility] Leukocyte esterase, ur Negative Negative [facility] Urine 07/05/2018 10:2 9 AM CDT 07/05/2018 11:56 AM CDT Narrative [facility] - 07/05/2018 12:10 PM CDT ?? Urine pH is affected by diet, medications, systemic acid-base disturbances, and renal tubular function. ??pH may affect urinary stone formation. ??For example, urine pH below 6.0 may help reduce the tendency for calcium phosphate stones and pH greater than 6.0 may reduce the tendency for uric acid stone formation. Source: [facility]gall. Last revised 11-22-2017 Antoinette GANNON LAB MICROBIOLOGY - GENERAL ORDERABLES Final Result Performing Organization Address [facility] de Phone Number [facility] [place] [address] * RPR, serum (07/05/2018 10:29 AM CDT) RPR Nonreactive Nonreactive [facility] Blood specimen (specimen) 07/05/2018 10:29 AM CDT 07/05/2018 11:56 AM CDT Narrative [facility] - 07/05/2018 1:09 PM CDT Antoinette GANNON LAB MICROBIOLOGY - GENERAL ORDERABLES Final Result Performing Organization Address [facility] [place] [address] * (ABNORMAL) T-helper cells (CD4) count (07/05/2018 10:29 AM CDT) CD4 pct 27(L) 31 - 64 % [facility] CD4 Absolute 572 365 - 1,294 cells/mcL [facility] Blood specimen (specimen) 07/05/2018 10:29 AM CDT 07/05/2018 11:56 AM CDT Narrative [facility] - 07/05/2018 2:49 PM CDT Antoinette GANNON LAB BLOOD ORDERABLES Final Result Performing Organization Address [facility] [place] [address] * CBC with auto differential (07/05/2018 10:29 AM CDT) WBC 3.8 3.8 - 9.9 K/cumm [facility] Hgb 13.3 13.0 - 17.5 g/dL [facility] Hct 39.8 38.9 - 50.3 % [facility] Plt 228 150 - 400 K/cumm [facility] MPV 10.7 9.1 - 12.3 fL [facility] RBC 4.76 4.30 - 5.80 M/cumm [facility] MCV 83.6 81.3 - 96.4 fL [facility] MCH 27.9 27.1 - 33.3 pg [facility] MCHC 33.4 32.3 - 35.7 g/dL [facility] RDW CV 12.8 11.1 - 14.9 % [facility] RDW SD 38.8 35.7 - 48.1 fL [facility] NRBC abs 0.00 0.00 - 0.01 K/cumm [facility] Blood specimen (specimen) 07/05/2018 10:29 AM CDT 07/05/2018 11:56 AM CDT Narrative [facility] - 07/05/2018 12:12 PM CDT Antoinette GANNON LAB BLOOD ORDERABLES Final Result [facility] [place] [address] * Iron profile (07/05/2018 10:29 AM CDT) Pathologist [facility] Iron 103 50 - 150 mcg/dL [facility] UIBC 194 112 - 347 mcg/dL [facility] TIBC 297 250 - 400 mcg/dL [facility] Transferrin saturation 35 20 - 50 % [facility] Blood specimen (specimen) 07/05/2018 10:29 AM CDT 07/05/2018 11:56 AM CDT Narrative [facility] - 07/05/2018 12:33 PM CDT Antoinette Aarti GANNON LAB BLOOD ORDERABLES Final Result Performing Organization Address City/[facility]/ZIP Co de Phone Number [facility] [place] [address] * (ABNORMAL) Ferritin (07/05/2018 10:29 AM CDT) Ferritin 518(H) 30 - 400 ng/mL [facility] Blood specimen (specimen) 07/05/2018 10:29 AM CDT 07/05/2018 11:56 AM CDT Narrative [facility] - 07/05/2018 12:37 PM CDT Antoinette GANNON LAB BLOOD ORDERABLES Final Result Performing Organization Address [facility] [place] [address] documented in this encounter Visit Diagnoses Diagnosis HIV disease (CMS/HCC) (HCC)- Primary Human immunodeficiency virus [HIV] disease Other iron deficiency anemia Long-term use of high-risk medication documented in this encounter Orders Immunization/Injection Count Last Ordered Date First Ordered Date TDAP VACCINE GREATER THAN OR EQUAL TO 7YO IM 1 07/05/2018 documented in this encounter Care Teams Cyber Intel Planner Relationship Specialty Start Date End Date Gucci Vilchis MD PCP - General 04/16/17 08/08/22 documented as of this encounter
--- OUTSIDE RECORDS SUMMARY | 2024-11-22 16:15 | XMS_ITS | Encounter Summary ---
Author Organization [facility] Healthcare Address [address] [place] [address] Care Team Providers Care Hotel Casino Floorperson Name Role Phone Unavailable Primary Care Provider Unavailabl e Encounter Details Date Type Department Care Team (Late st Contact Info) Description 07/01/2007 11:22 AM CDT - 07/01/2007 2:50 PM CDT Hospital Encounter [facility] Kirti King MD [address] [place] [address] Gucci Vilchis MD [address] [address] Social History Tobacco Use Types Packs/Day Years Used Date Smoking Tobacco: Never Assessed Sex and Gender Information Value Date Recorded Sex Assigned at Not on file 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
--- OUTSIDE RECORDS SUMMARY | 2024-11-22 16:15 | XMS_ITS | Encounter Summary ---
Author Organization [facility] Address [address] [facility] [address] [place] [address] Phone Care Team Providers Care Home Health Nurse Name Role Phone Gucci Vilchis MD Primary Care Provider [phone] Reason for Visit * Reason Onset Date Comments lab Results 08/02/2018 Encounter Details Date Type Department Care Team (Late st Contact Info) Description 08/02/2018 Telephone [facility] Infectious Diseases [address] [place] [address] [address] [place] [address] Francheska Gunderson CMA lab Results Social History Tobacco Use Types Packs/Day Years Used Date Smoking Tobacco: Never Smokeless Tobacco: Never Sex and Gender Information Value Date Recorded Sex Assigned at Not on file 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
--- OUTSIDE RECORDS SUMMARY | 2024-11-22 16:15 | XMS_ITS | Encounter Summary ---
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 - 10/17/2007 4:30 AM READY MIX TRUCK DRIVER Hospital Encounter [facility] Eliseo Ceja MD [address] [place] [address] Gucci Vilchis MD [address] [address] Social History Tobacco Use Types Packs/Day Years Used Date Smoking Tobacco: Never Assessed Sex and Gender Information Value Date Recorded Sex Assigned at Not on file 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
--- OUTSIDE RECORDS SUMMARY | 2024-11-22 16:15 | XMS_ITS | Encounter Summary ---
Author Organization [facility] Address [address] [facility] [address] [place] [address] Phone Care Team Providers Care Industrial Chemistry Teacher Name Role Phone Gucci Vilchis MD Primary Care Provider [phone] Encounter Details Date Type Department Care Team (Late st Contact Info) Description 12/03/2018 Telephone [facility] Infectious Diseases [address] [place] [address] Sarbjit Becker RMA Social History Tobacco Use Types Packs/Day Years Used Date Smoking Tobacco: Never Smokeless Tobacco: Never Sex and Gender Information Value Date Recorded Sex Assigned at Not on file 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 TICS FITTER documented in this encounter Plan of Treatment Not on file documented as of this encounter Visit Diagnoses Not on filedocumented in this encounter Care Teams Industrial Chemistry Teacher Relationship Specialty Start Date End Date Gucci Vilchis MD PCP - General 04/16/17 08/08/22 [facility] Criminal Justice Program Director 10/30/18 12/08/21 documented as of this encounter
--- OUTSIDE RECORDS SUMMARY | 2024-11-22 16:15 | XMS_ITS | Encounter Summary ---
Author Organization [facility] Address [address] [facility] [address] [place] [address] Phone Care Team Providers Care Social Services Counselor Name Role Phone Gucci Vilchis MD Primary Care Provider [phone] Reason for Visit * Reason Onset Date Comments Patient issue/concern 11/13/2019 Encounter Details Date Type Department Care Team (Late st Contact Info) Description 11/13/2019 Telephone [facility] Infectious Diseases [address] [place] [address] Francheska Gunderson CMA Patient issue/concern Social History Tobacco Use Types Packs/Day Years Used Date Smoking Tobacco: Never Smokeless Tobacco: Never Sex and Gender Information Value Date Recorded Sex Assigned at Not on file 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 TY INSTRUCTOR documented in this encounter Plan of Treatment Not on file documented as of this encounter Visit Diagnoses Not on filedocumented in this encounter Care Teams Social Services Counselor Relationship Specialty Start Date End Date Gucci Vilchis MD PCP - General 04/16/17 08/08/22 [facility] Central Stores Attendant 10/30/18 12/08/21 documented as of this encounter
--- OUTSIDE RECORDS SUMMARY | 2024-11-22 16:15 | XMS_ITS | Encounter Summary ---
Author Organization 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
--- OUTSIDE RECORDS SUMMARY | 2024-11-22 16:15 | XMS_ITS | Encounter Summary ---
Author Organization [facility] Address [address] [facility] [address] [place] [address] Phone Care Team Providers Care Rescue Boat Operator Name Role Phone Gucci Vilchis MD Primary Care Provider [phone] Reason for Visit * Reason Comments Follow-up HIV Positive/AIDS Encounter Details Date Type Department Care Team (Latest Contact Info) Description 06/28/2021 10:20 AM CDT Office Visit 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 He was extremely busy due to [...] ??? Tdap 07/05/2018 Current Outpatient Medications: ??? mlhoncxqb-lquf-esxjq-tenof ala (Symtuza) [phone] mg tablet ??? dolutegravir (TIVICAY) 50 mg [...] trachomatis rRNA Negative for: Neisseria gonorrhoeae rRNA [id number] NOT DETECTED 12/31/2012 [id number] NOT DETECTED 12/31/2012 [id number] NOT DETECTED 11/25/2013 [id number] NOT DETECTED 11/25/2013 No results found for: TRICHOMONU, TRICHOMONAS ANNUAL LABS AND SCREENING -TB SCREENING Lab Results Component Value Date IFNGAMMAREL Negative 07/05/2018 [id number] See Comment 08/16/2016 PPD Negative 10/29/2020 -LIPIDS [...] PAP No results found for: HIRSKHPVRNA, HPVG16, [id number], [id number] -PROSTATE CANCER SCREENING IF HIGH RISK Lab Results Component Value Date PSA 0.80 06/28/2021 BASELINE SCREENING -HEPATITIS A IMMUNITY STATUS Lab Results Component Value Date HAV Positive (A) 08/16/2016 -HEPATITIS B IMMUNITY STATUS Lab Results Component Value Date HEPBSAB Positive 08/16/2016 HEPBSAB 384 08/16/2016 -TOXOPLASMA IMMUNITY STATUS Lab Results Component Value Date TOXOIGG Negative 12/05/2018 [id number] < OR = 0.90 11/25/2013 -CMV IMMUNITY STATUS No results found for: CMVIGG -G6PD LEVEL (NORMAL >4.6) Lab Results Component Value Date G6PD Normal 08/16/2016 -[id number] STATUS Lab Results Component Value Date [id number] Negative 11/25/2013 -COLONOSCOPY- referred Assessment/Plan This is [...] Assessment & Plan: Routine lab monitoring on senior care HIV [...] in this office suite for this Physician Unix Architect, Antoinette Riley PA-C is Dr. Bird May. [...] Results * eGFR (06/28/2021 11:26 AM CDT) [facility] eGFR >90 90 - 130 mL/min/1.7 3 m2 [facility] Comment: Interpretive Data Reference Interval Normal [...] AM CDT 06/28/2021 3:39 PM CDT Antoinette GANNON LAB BLOOD ORDERABLES Final Result Performing Organization Address City/[facility]/ZIP Co de Phone Number [facility] Department [place] [address] * Urinalysis, microscopic only (06/28/2021 11:26 AM CDT) WBC, ur 0-5 0 - 5 /HPF [facility] RBC, ur 0-2 0 - 2 /HPF [facility] Urine 06/28/2021 11:2 6 AM CDT 06/28/2021 3:31 PM CDT Antoinette GANNON LAB URINE ORDERABLES Final Result Performing Organization Address City/[facility] Co de Phone Number [facility] Department [place] [address] * Differential, auto (06/28/2021 11:26 AM CDT) Neutrophil abs 1.9 1.7 - 6.5 K/cumm [facility] Imm gran abs 0.0 0.0 - 0.1 K[facility] Lymphocyte abs 1.8 0.8 - 3.3 K/cumm [facility] Monocyte abs 0.4 0.2 - 0.8 K/cumm [facility] Eosinophil abs 0.2 0.0 - 0.5 K/cumm [facility] Basophil abs 0.0 0.0 - 0.1 K/cumm [facility] Neutrophil pct 43.6 % [facility] Comment: Interpretive Data Percent cell count reference ranges are not reported, since discordance with absolute values may lead to misinterpretation of CBC data. Current Interpretive Data was last revised on 2018. Imm gran pct 0.5 % [facility] Comment: Interpretive Data Percent cell count reference ranges are not reported, since discordance with absolute values may lead to misinterpretation of CBC data. Current Interpretive Data was last revised on 2018. Lymphocyte pct 42.0 % [facility] Comment: Interpretive Data Percent cell count reference ranges are not reported, since discordance with absolute values may lead to misinterpretation of CBC data. Current Interpretive Data was last revised on 2018. Monocyte pct 8.9 % [facility] Comment: Interpretive Data Percent cell count reference ranges are not reported, since discordance with absolute values may lead to misinterpretation of CBC data. Current Interpretive Data was last revised on 2018. Eosinophil pct 4.3 % [facility] Comment: Interpretive Data Percent cell count reference ranges are not reported, since discordance with absolute values may lead to misinterpretation of CBC data. Current Interpretive Data was last revised on 2018. Basophil pct 0.7 % [facility] Comment: Interpretive Data Percent cell count reference ranges are not reported, since discordance with absolute values may lead to misinterpretation of CBC data. Current Interpretive Data was last revised on 2018. Blood 06/28/2021 11:2 6 AM CDT 06/28/2021 3:31 PM CDT Antoinette GANNON LAB BLOOD ORDERABLES Final Result [facility] Department [place] [address] * Glucose, random (Outreach) (06/28/2021 11:26 AM CDT) Glucose 94 70 - 199 mg/dL [facility] Comment: Interpretive Data Fasting glucose >/= [...] Antoinette GANNON LAB BLOOD ORDERABLES Final Result [facility] [place] [address] * (ABNORMAL) Comprehensive metabolic panel, without glucose (Outreach) (06/28/2021 11:26 AM CDT) Sodium 138 135 - 145 mmol/L [facility] Potassium, pl 3.7 3.3 - 4.9 mmol/L [facility] Chloride 101 97 - 110 mmol/L [facility] CO2 27 22 - 32 mmol/L [facility] Anion gap 10 2 - 15 mmol/L [facility] BUN 11 8 - 25 mg/dL [facility] Creatinine 0.93 0.80 - 1.30 mg/dL [facility] Calcium 9.8 8.5 - 10.3 mg/dL [facility] Protein, pl 8.7(H) 6.5 - 8.5 g/dL [facility] Albumin 4.8 3.5 - 5.0 g/dL [facility] Bilirubin, total 0.2 0.1 - 1.2 mg/dL [facility] Alk phos 73 40 - 130 Units/L [facility] AST 20 10 - 50 Units/L [facility] ALT 27 7 - 55 Units/L [facility] Blood 06/28/2021 11:2 6 AM CDT 06/28/2021 3:31 PM CDT Antoinette GANNON LAB BLOOD ORDERABLES Final Result [facility] Department [place] [address] * (ABNORMAL) Urinalysis with reflex for neutropenic patient Urine (06/28/2021 11:26 AM CDT) Color, ur Yellow Yellow [facility] Clarity, ur Clear Clear [facility] Specific gravity, ur 1.018 1.010 - 1.025 [facility] pH, urine 5 [facility] Protein, ur ql Negative Negative [facility] Glucose, ur ql Negative Negative [facility] Ketones, ur Negative Negative [facility] Bilirubin, ur Negative Negative [facility] Blood, ur 1+(A) Negative [facility] Urobilinogen, ur <2.0 <2.0 mg/dL [facility] Nitrite, ur Negative Negative [facility] Leukocyte esterase, ur Negative Negative [facility] Urine 06/28/2021 11:2 6 AM CDT 06/28/2021 3:31 PM CDT Narrative [facility] - 06/28/2021 3:43 PM CDT ?? Urine pH is affected by diet, medications, systemic acid-base disturbances, and renal tubular function. ??pH may affect urinary stone formation. ??For example, urine pH below 6.0 may help reduce the tendency for calcium phosphate stones and pH greater than 6.0 may reduce the tendency for uric acid stone formation. Source: [employer]. Last revised 11-22-2017 Antoinette GANNON LAB MICROBIOLOGY - GENERAL ORDERABLES Final Result [facility] Department [place] [address] * PSA screen (06/28/2021 11:26 AM CDT) PSA-Total 0.80 <=3.90 ng/mL [facility] Comment: Interpretive Data ?AGE ? SEX [...] Antoinette GANNON LAB BLOOD ORDERABLES Final Result [facility] Department [place] [address] * N. gonorrhoeae/C. trachomatis Amplification Urine (06/28/2021 11:26 AM CDT) C. trachomatis Not detected Not detected [facility] Comment:Testing performed by : [facility], [address] [place] [address]., [address] N. gonorrhoeae Not detected Not detected [facility] Comment: Testing performed by the [facility] Laboratory. This assay detects Chlamydia trachomatis and Neisseria gonorrhoeae by nucleic acid amplification testing (NAAT). This test is approved by the [place] Food and Drug Administration and the performance characteristics have been verified by the laboratory. The performance characteristics of this test have not been evaluated in women or individuals less than 16 years of age. Testing performed by: [facility], [address] [place] [address]., [address] Urine (None) 06/28/2021 11:2 6 AM CDT 06/28/2021 4:26 PM CDT Antoinette GANNON LAB MICROBIOLOGY - GENERAL ORDERABLES Final Result Performing Organization Address City/[facility] Co de Phone Number [facility] [place] [address] * RPR (06/28/2021 11:26 AM CDT) [facility] RPR Nonreactive Nonreactive [facility] Blood 06/28/2021 11:2 6 AM CDT 06/28/2021 3:31 PM CDT Antoinette GANNON LAB MICROBIOLOGY - GENERAL ORDERABLES Final Result Performing Organization Address [facility] [place] [address] * HIV-1 RNA PCR, quantitative (06/28/2021 11:26 AM CDT) [facility] HIV-1 RNA Not Detected [facility] Comment: Interpretive Data: The quantifiable range of this assay is 20 copies/mL to 10,000,000 copies/mL (1.30 log copies/mL to 7.00 log copies/mL). ??Testing was performed by the [employer]EL[employer] AmpliPrep/NIELS TaqMan HIV-1 Test version 2.0 (Andrés [employer] Testing performed at [facility] Current Interpretive Data was last revised on 2015. Blood 06/28/2021 11:2 6 AM CDT 06/28/2021 3:38 PM CDT Antoinette GANNON LAB MICROBIOLOGY - GENERAL ORDERABLES Final Result Performing Organization Address [facility] [place] [place] [address] * (ABNORMAL) T-helper cells (CD4) count (06/28/2021 11:26 AM CDT) [facility] CD4 pct 18(L) 31 - 64 % [facility] CD4 Absolute 266(L) 365 - 1,294 cells/mcL [facility] Blood 06/28/2021 11:2 6 AM CDT 06/28/2021 3:31 PM CDT Antoinette GANNON LAB BLOOD ORDERABLES Final Result Performing Organization Address City/[facility]/ZIP Co de Phone Number [facility] [place] [address] * CBC with auto differential (06/28/2021 11:26 AM CDT) [facility] WBC 4.4 3.8 - 9.9 K/cumm [facility] Hgb 13.2 13.0 - 17.5 g/dL [facility] Hct 40.3 38.9 - 50.3 % [facility] Plt 262 150 - 400 K/cumm [facility] MPV 10.4 9.1 - 12.3 fL [facility] RBC 4.78 4.30 - 5.80 M/cumm [facility] MCV 84.3 81.3 - 96.4 fL [facility] MCH 27.6 27.1 - 33.3 pg [facility] MCHC 32.8 32.3 - 35.7 g/dL [facility] RDW CV 13.2 11.1 - 14.9 % [facility] RDW SD 41.3 35.7 - 48.1 fL [facility] NRBC abs 0.00 0.00 - 0.01 K/cumm [facility] Blood 06/28/2021 11:2 6 AM CDT 06/28/2021 3:31 PM CDT Antoinette GANNON LAB BLOOD ORDERABLES Final Result Performing Organization Address City/[facility]/ZIP Co de Phone Number [facility] Department [place] [address] * Pneumococcal polysaccharide vaccine 23-valent greater than [...] ethanolate (Prezista) 800 mg tabletIndications:HIV disease (CMS/HCC) ([facility]) Take 1 tablet (800 mg total) by mouth daily Therapy completed 10/29/2020 06/28/2021 documented as of this encounter Care Teams Rescue Boat Operator Relationship Specialty Start Date End Date Gucci Vilchis MD PCP - General 04/16/17 08/08/22 [facility] Product Delivery Specialist 10/30/18 12/08/21 documented as of this encounter
--- OUTSIDE RECORDS SUMMARY | 2024-11-22 16:15 | XMS_ITS | Encounter Summary ---
Author Organization [facility] Facility Care Team Providers Care Tree Worker Name Role Phone Unavailable Primary Care Provider Unavailabl e Encounter Details Date Type Department Care Team (Latest Contact Info) Description 08/16/2016 9:14 AM CDT - 08/16/2016 11:59 PM CDT Hospital [facility] Tova Byrd MD [address] [facility] [address] [place] [address] Encounter for general adult medical examination without abnormal findings; Human immunodeficiency virus (HIV) disease ([facility]) Social History Tobacco Use Types Packs/Day Years Used Date Smoking Tobacco: Never Assessed Sex and Gender Information Value Date Recorded Sex Assigned at Not on file 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 STORE AT ROOMTEMPERATURE . 08/16/2016 8 hlmmxfi-tgj-dxbx i-tenof ALAFEN (GENVOYA) [phone] mg tablet TAKE ONE TABLET BY MOUTH ONCE DAILY WITH FOOD. STORE IN ORIGINAL CONTAINER AT ROOM TEMPERATURE. 08/16/2016 8 documented as of this encounter Plan of Treatment Not on file documented as of this encounter Procedures Procedure Name Priority Date/Time Associated Diagnosis Comments URINE (AEROBIC) CULTURE, [facility] Routine 08/16/2016 10:19 AM CDT N. GONORRHOEAE, [...] EXAM Routine 08/16/2016 10:15 AM CDT BLOOD XRYAZQG-8-DHMBQCIFU DEHYDROGENASE (G6PD) Routine 08/16/2016 5:15 AM CDT [...] L ORDERABLES Final Result Performing Organization Address [facility] de Phone Number CDR HISTORICAL RESULTS * [...] trachomatis and Neisseria gonorrhoeae using target capture,and Client Support Representative-Mediated Amplification (TMA). This test is approved by the [place] Food and Drug Administration for endocervical, vaginal, and male urethral swab specimens, in addition to male and female urine specimens. The performance characteristics for these specimen types have been verified by the [facility].The performance characteristics of this assay for pharyngeal and rectal specimens collected from cervical swab collection devices have been validated and verified by the [facility]. Verification studies support a lack [...] L ORDERABLES Final Result Performing Organization Address City/[facility] Co de Phone Number CDR HISTORICAL [...] BLOOD ORDERABLES Final Result Performing Organization Address [facility] de Phone Number CDR HISTORICAL RESULTS * Serum Hepatitis B surface ab, Quant/Qual (08/16/2016 10:15 AM CDT) Pathologist [facility] HBV surface ab Positive CDR HISTORICAL RESULTS [...] BLOOD ORDERABLES Final Result Performing Organization Address [facility] Co de Phone Number CDR HISTORICAL RESULTS * (ABNORMAL) Urinalysis (08/16/2016 10:15 AM CDT) Pathologist [facility] Color, ur Yellow Yellow CDR HISTOR ICAL [...] BLOOD ORDERABLES Final Result Performing Organization Address [facility] Co de Phone Number CDR HISTORICAL RESULTS * Blood lymphocyte CD4 (08/16/2016 10:15 AM CDT) CD4 % 32 31 - 64 % CDR HISTOR ICAL RESULTS CD4 cells 686 365 - 1294 cells/mcl CDR HISTORICAL RESULTS Leukocyte, NOS 08/16/2016 10 :15 AM CDT Tova Zayas MD LAB BLOOD ORDERABLES Final Result Performing Organization Address City/[facility]/ZIP Co de Phone Number CDR HISTORICAL [...] (HIV-1) RNA (08/16/2016 10:15 AM CDT) Pathologist [facility] HIV-1 RNA Not Detected [facility] Comment: Interpretive Data: The quantifiable range of this assay is 20 copies/mL to 10,000,000 copies/mL (1.30 log copies/mL to 7.00 log copies/mL). ??Testing was performed by the [employer] AmpliPrep/NIELS TaqMan HIV-1 Test version 2.0 (Andrés [employer] Testing performed at [facility] Current Interpretive Data was last revised on 2015. Plasma 08/16/2016 10:1 5 AM CDT Tova Zayas MD LAB BLOOD ORDERABLES Final Result Performing Organization Address [facility] de Phone Number CDR HISTORICAL RESULTS * (ABNORMAL) Serum Hepatitis A ab total (08/16/2016 10:15 AM CDT) HAV ab, total Positive(A ) NEG CDR HISTORICAL RESULTS Serum 08/16/2016 10:1 5 AM CDT Tova Zayas MD LAB BLOOD ORDERABLES Final Result Performing Organization Address [facility] Phone Number CDR HISTORICAL RESULTS * Blood interferon gamma release assay (08/16/2016 10:15 AM CDT) Interferon gamma release See Comment CDR HISTORICAL RESULTS Comment: {See scanned report.} Interpretive Data Testing performed by [employer], [address] [place] [address] Current Interpretive Data was last revised 2014 Blood specimen (specimen) 08/16/2016 10:15 AM CDT Tova Zayas MD LAB BLOOD ORDERABLES Final Result Performing Organization Address [facility] de Phone Number CDR HISTORICAL RESULTS * Serum glucose (08/16/2016 10:15 AM CDT) Glucose 98 70 - 199 mg/dl CDR HISTORICAL RESULTS Serum 08/16/2016 10:1 5 AM CDT us Tova Zayas MD LAB BLOOD ORDERABLES Final Result Performing Organization Address [facility] de Phone Number CDR HISTORICAL RESULTS * [...] Final Result [facility]R HISTORICAL RESULTS * Blood dnsfdld-7-djowqpcwu dehydrogenase (G6PD) (08/16/2016 5:15 AM CDT) G6PD Normal CDR HISTOR ICAL RESULTS Blood specimen (specimen) 08/16/2016 5:15 AM CDT Narrative CDR HISTORICAL RESULTS - 08/17/2016 5:42 AM CDT Comment Deleted Tova Zayas MD LAB BLOOD ORDERABLES Final Result Performing Organization Address City/[facility] Co de Phone Number CDR HISTORICAL RESULTS * REFERENCE LABORATORY MISCELLANEOUS TESTING (08/16/2016) Narrative 08/16/2016 Ordered by an unspecified provider. [facility] Provider LAB BLOOD ORDERABLES Kareen l Result * DISCHARGE LABORATORY CUMULATIVE REPORT (08/16/2016) Narrative 08/16/2016 Ordered by an unspecified provider. [facility] Provider LAB BLOOD ORDERABLES Kareen l Result documented in this encounter Visit Diagnoses Diagnosis Encounter for general adult medical examination without abnormal findings Human immunodeficiency virus (HIV) disease (CMS/HCC) (HCC) Human immunodeficiency virus [HIV] disease documented in this encounter
--- OUTSIDE RECORDS SUMMARY | 2024-11-22 16:15 | XMS_ITS | Encounter Summary ---
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 Name Role Phone Unavailable Primary Care Provider Unavailabl e Encounter Details Date Type Department Care Team (Late st Contact Info) Description 06/09/2011 7:23 AM CDT - 06/09/2011 11:21 AM CDT Hospital Encounter [facility] Siva Beasley MD [address] [facility] [address] [place] [address] Cellulitis and abscess of neck; Tobacco use disorder Social History Tobacco Use Types Packs/Day Years Used Date Smoking Tobacco: Never Assessed Sex and Gender Information Value Date Recorded Sex Assigned at Not on file 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
--- OUTSIDE RECORDS SUMMARY | 2024-11-22 16:15 | XMS_ITS | Encounter Summary ---
Author Organization 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 Role Phone Gucci Vilchis MD Primary Care Provider [phone] Encounter Details Date Type Department Care Team (Latest Contact Info) Description 11/20/2017 11:07 AM CROP ROLLER - 11/20/2017 11:59 PM CROP ROLLER Hospital Encounter [facility] [phone] Jodi May MD [address] [place] [address] Discharge Disposition: Discharge to home or self care Social History Tobacco Use Types Packs/Day Years Used Date Smoking Tobacco: Never Assessed Sex and Gender Information Value Date Recorded Sex Assigned at Not on file Legal Sex Male 7:55 PM CROP ROLLER Gender Identity Not on file Sexual Orientation Not on file documented as of this encounter Medications at Time of Discharge darunavir ethanolate (PREZISTA) 800 mg tablet TAKE ONE TABLET (800 MG) BY MOUTH ONCE DAILY WITH FOOD. STORE AT ROOMTEMPERATURE . 08/16/2016 8 [id number] i-tenof ALAFEN (GENVOYA) [phone] mg tablet TAKE ONE TABLET BY MOUTH [...] GLUCOSE Routine Gen Lab 11/20/2017 11:14 AM CROP ROLLER DIFFERENTIAL AUTO Routine Gen Lab 11/20/2017 11: 14 AM CROP ROLLER COMPREHENSIVE METABOLIC PANEL WITHOUT GLUCOSE (OUTREACH) Routine Gen Lab 11/20/2017 11:14 AM CROP ROLLER URINALYSIS Routine Gen Lab 11/20/2017 11:14 AM CROP ROLLER CBC WITH AUTO DIFFERENTIAL Routine Gen Lab 11/20/2017 11:14 AM CROP ROLLER HIV-1 RNA, QUANTITATIVE, PCR Routine Gen Lab 11/20/2017 11:14 AM CROP ROLLER RPR Routine Gen Lab 11/20/2017 11:14 AM CROP ROLLER URINALYSIS, MICROSCOPIC ONLY Routine Gen Lab 11/20/2017 11:14 AM CROP ROLLER T-HELPER CELLS (CD4) COUNT Routine Gen Lab 11/20/2017 11:14 AM CROP ROLLER URINE CULTURE Routine Gen Lab 11/20/2017 11:14 AM CROP ROLLER documented in this encounter Results * TB test, T-SPOT (07/05/2018 10:29 AM CDT) [facility] IFN-Gamma Release Assay TB Negative [facility] Comment: Interpretive Data Testing performed by [employer], [id number] [place], [place] [id number] Current Interpretive Data was last revised 2014 Blood specimen (specimen) 07/05/2018 10:29 AM CDT 07/05/2018 11:56 AM CDT Narrative [facility] - 07/07/2018 1:37 PM CDT Jodi May MD LAB MICROBIOLOGY - GENERA L ORDERABLES Final Result Performing Organization Address [facility] [place] [address] * Urine culture (11/20/2017 11:14 AM CROP ROLLER) Report Final Report: Insignificant growth based on current clinical standards. [facility] Urine 11/20/2017 11:1 4 AM CROP ROLLER 11/20/2017 9:08 PM CROP ROLLER Narrative [facility] - 11/22/2017 7:46 AM CROP ROLLER Jodi May MD LAB MICROBIOLOGY - GENERA L ORDERABLES Final Result Performing Organization Address [facility] [place] [address] * HIV-1 RNA, quantitative, PCR (11/20/2017 11:14 AM CROP ROLLER) HIV-1 RNA Not Detected [facility] Comment: Interpretive Data: The quantifiable range of this assay is 20 copies/mL to 10,000,000 copies/mL (1.30 log copies/mL to 7.00 log copies/mL). ??Testing was performed by the [employer] Ampl[employer] TaqMan HIV-1 Test version 2.0 ([employer] Testing performed at [facility] Current Interpretive Data was last revised on 2015. Blood specimen (specimen) 11/20/2017 11:14 AM CROP ROLLER 11/20/2017 9:23 PM CROP ROLLER Narrative [facility] - 11/21/2017 2:14 PM CROP ROLLER Jodi May MD LAB MICROBIOLOGY - GENERA L ORDERABLES Final Result Performing Organization Address [facility] [place] [address] * (ABNORMAL) T-helper cells (CD4) count (11/20/2017 11:14 AM CROP ROLLER) CD4 pct 26(L) 31 - 64 % [facility] CD4 Absolute 478 365 - 1,294 cells/mcL [facility] Blood specimen (specimen) 11/20/2017 11:14 AM CROP ROLLER 11/20/2017 12:22 PM CROP ROLLER Narrative [facility] - 11/20/2017 8:27 PM CROP ROLLER Jodi May MD LAB BLOOD ORDERABLES Kareen l Result [facility] Department [place] [address] * (ABNORMAL) Urinalysis, microscopic only (11/20/2017 11:14 AM CROP ROLLER) Pathologist [facility] RBC, ur 4(H) 0 - 3 /HPF [facility] WBC, ur 1 0 - 5 /HPF [facility] Bacteria, ur Negative Trace [facility] Epithelial cells, renal, ur 0 0 - 0 /HPF [facility] Epithelial cells, squamous, ur 8 /LPF [facility] Mucus, ur Small /HPF [facility] Hyaline casts, ur 2(H) 0 - 0 /LPF [facility] Urine 11/20/2017 11:1 4 AM CROP ROLLER 11/20/2017 4:41 PM CROP ROLLER Narrative [facility] - 11/20/2017 5:12 PM CROP ROLLER us Jodi May MD LAB URINE ORDERABLES Kareen l Result [facility] Department [place] [address] * (ABNORMAL) Urinalysis (11/20/2017 11:14 AM CROP ROLLER) Color, ur Yellow Yellow [facility] Clarity, ur Clear Clear [facility] Specific gravity, ur 1.018 1.003 - 1.030 [facility] pH, ur 6.0 5.0 - 8.0 [facility] Albumin, ur Negative Trace [facility] Glucose, ur ql Negative Negative [facility] Ketones, ur Negative Negative [facility] Bilirubin, ur Negative Negative [facility] Blood, ur 1+(A) Negative [facility] Urobilinogen, ur <2.0 <2.0 mg/dL [facility] Nitrites, ur Negative Negative [facility] Leukocyte esterase, ur Negative Negative [facility] Urine 11/20/2017 11:1 4 AM CROP ROLLER 11/20/2017 4:41 PM CROP ROLLER Narrative [facility] - 11/20/2017 4:59 PM CROP ROLLER us Jodi May MD LAB URINE ORDERABLES Kareen l Result Performing Organization Address City/[facility]/ZIP Co de Phone Number [facility] Department [place] [address] * RPR, serum (11/20/2017 11:14 AM CROP ROLLER) RPR Nonreactive Nonreactive [facility] Blood specimen (specimen) 11/20/2017 11:14 AM CROP ROLLER 11/20/2017 12:26 PM CROP ROLLER Narrative [facility] - 11/20/2017 2:10 PM CROP ROLLER Jodi May MD LAB MICROBIOLOGY - GENERA L ORDERABLES Final Result [facility] [place] [address] * Comprehensive metabolic panel, without glucose (Outreach) (11/20/2017 11:14 AM CROP ROLLER) Sodium 140 135 - 145 mmol/L [facility] Potassium, pl 3.6 3.3 - 4.9 mmol/L [facility] Chloride 105 97 - 110 mmol/L [facility] CO2 26 22 - 32 mmol/L [facility] Anion gap 8 2 - 15 mmol/L [facility] BUN 11 8 - 25 mg/dL [facility] Creatinine 0.98 0.80 - 1.30 mg/dL [facility] Calcium 9.5 8.5 - 10.3 mg/dL [facility] Protein, pl 8.0 6.5 - 8.5 g/dL [facility] Albumin 4.5 3.5 - 5.0 g/dL [facility] Bilirubin, total 0.3 0.1 - 1.2 mg/dL [facility] Alk phos 66 40 - 130 Units/L [facility] AST 29 10 - 50 Units/L [facility] ALT 43 7 - 55 Units/L [facility] Blood specimen (specimen) 11/20/2017 11:14 AM CROP ROLLER 11/20/2017 12:18 PM CROP ROLLER Narrative [facility] - 11/20/2017 12:57 PM CROP ROLLER Jodi May MD LAB BLOOD ORDERABLES Kareen l Result [facility] Department [place] [address] * CS GLUCOSE (11/20/2017 11:14 AM CROP ROLLER) [facility] Glucose 93 70 - 199 mg/dL [facility] Comment: Interpretive Data Fasting glucose >/= [...] 2017. Blood specimen (specimen) 11/20/2017 11:14 AM CROP ROLLER 11/20/2017 12:20 PM CROP ROLLER Narrative [facility] - 11/20/2017 12:52 PM CROP ROLLER Jodi May MD LAB BLOOD ORDERABLES Kareen l Result Performing Organization Address [facility] Co de Phone Number [facility] Department [place] [address] * (ABNORMAL) Differential, auto (11/20/2017 11:14 AM CROP ROLLER) Neutrophil pct 30.4 % [facility] Imm gran pct 0.3 % [facility] Lymphocyte pct 52.3 % [facility] Monocyte pct 10.9 % [facility] Eosinophil pct 5.3 % [facility] Basophil pct 0.8 % [facility] Neutrophil abs 1.21(L) 1.70 - 6.50 K/cumm [facility] Imm gran abs 0.01 0.00 - 0.10 K/cumm [facility] Lymphocyte abs 2.07 0.80 - 3.30 K/cumm [facility] Monocyte abs 0.43 0.20 - 0.80 K/cumm [facility] Eosinophil abs 0.21 0.00 - 0.50 K/cumm [facility] Basophil abs 0.03 0.00 - 0.10 K/cumm [facility] Blood specimen (specimen) 11/20/2017 11:14 AM CROP ROLLER 11/20/2017 12:22 PM CROP ROLLER Narrative [facility] - 11/20/2017 12:30 PM CROP ROLLER Jodi May MD LAB BLOOD ORDERABLES Kareen l Result [facility] [place] [address] * (ABNORMAL) CBC with auto differential (11/20/2017 11:14 AM CROP ROLLER) WBC 3.96 3.80 - 9.90 K/cumm [facility] RBC 4.27(L) 4.30 - 5.80 M/cumm [facility] Hgb 12.3(L) 13.0 - 17.5 g/dL [facility] Hct 36.6(L) 38.9 - 50.3 % [facility] MCV 85.7 81.3 - 96.4 fL [facility] MCH 28.8 27.1 - 33.3 pg [facility] MCHC 33.6 32.3 - 35.7 g/dL [facility] RDW CV 13.4 11.1 - 14.9 % [facility] RDW SD 41.8 35.7 - 48.1 fL [facility] Plt 200 150 - 400 K/cumm [facility] MPV 11.2 9.1 - 12.3 fL [facility] NRBC 0.0 0.0 - 0.2 % [facility] NRBC abs 0.00 0.00 - 0.01 K/cumm [facility] Blood specimen (specimen) 11/20/2017 11:14 AM CROP ROLLER 11/20/2017 12:22 PM CROP ROLLER Narrative [facility] - 11/20/2017 12:30 PM CROP ROLLER us Jodi May MD LAB BLOOD ORDERABLES Kareen l Result [facility] [place] [address] documented in this encounter Visit Diagnoses Not on filedocumented in this encounter Care Teams Instrument Repairer [employer] Relationship Specialty Start Date End Date Gucci Vilchis MD PCP - General 04/16/17 08/08/22 documented as of this encounter
--- OUTSIDE RECORDS SUMMARY | 2024-11-22 16:15 | XMS_ITS | Encounter Summary ---
Author Organization [facility] Address [address] [facility] [address] [place] [address] Phone Care Team Providers Care Package Maker Name Role Phone Gucci Vilchis MD Primary Care Provider [phone] Reason for Visit * Reason Comments Follow-up HIV Positive/AIDS * Infectious Disease (Routine) - Closed Specialty Diagnoses / Procedures Referred By Markell tong Referred To Contact Physician Political Researcher / Infectious Diseases Diagnoses RTC 4MTH Procedures VIROLOGY RETURN Gucci Vilchis MD Phone: tel: fax: Antoinette Riley PA [address] [address] [place] [address] Phone: tel: fax: Referral ID Status Reason Start Date Expiration Date Visits Re quested Visits Authorized [id number] Closed 07/15/2019 01/23/2021 [id number] [phone] Encounter Details Date Type Department Care Team (Late st Contact Info) Description 10/28/2019 11:00 AM AUTOMOBILE INSURANCE CLAIM EXAMINER Office Visit [facility] Infectious Diseases [address] [facility] [facility] [address] [place] [address] Antoinette Riley PA [address] [facility] [address] [place] [address] HIV disease (CMS/HCC) (Primary Dx); Long-term use of high-risk medication; Screening examination for STD (sexually transmitted disease); Needs flu shot; Healthcare maintenance; Other fatigue Social History Tobacco Use Types Packs/Day Years Used Date Smoking Tobacco: Never Smokeless Tobacco: Never Sex and Gender Information Value Date Recorded Sex Assigned at Not on file Legal Sex Male 7:55 PM AUTOMOBILE INSURANCE CLAIM EXAMINER Gender Identity Not on file Sexual Orientation Not on file documented as of this encounter Last Filed Vital Signs Vital Sign Reading Time Taken Comments Blood Pressure 110/74 10/28/2019 11:16 AM AUTOMOBILE INSURANCE CLAIM EXAMINER Pulse 76 10/28/2019 11:16 AM AUTOMOBILE INSURANCE CLAIM EXAMINER Temperature 37.1 ??C (98.8 ??F) 10/28/2019 11:[address] Respiratory Rate - - Oxygen Saturation - - Inhaled Oxygen Concentration - - Weight 99.5 kg (219 lb 4.8 oz) 10/28/2019 11:16 AM AUTOMOBILE INSURANCE CLAIM EXAMINER Height 182.9 cm (6') 10/28/2019 11:16 AM AUTOMOBILE INSURANCE CLAIM EXAMINER Body Mass Index 29.74 10/28/2019 11:16 AM AUTOMOBILE INSURANCE CLAIM EXAMINER documented in this encounter Progress Notes * Antoinette Rliey PA - 10/28/2019 11:00 AM CST Subjective/Objective Patient ID: Dashawn Howell is a 48 y.o. male. Chief Complaint [...] adherence. 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 As a result of his new [...] Assessment & Plan: Routine lab monitoring on [facility] HIV meds to assess for drug toxicity [...] in this office suite for this Physician Political Researcher, Antoinette Riley PA-C is Dr. Percy Renae. MOBILE INSURANCE CLAIM EXAMINER documented in this encounter Miscellaneous Notes * Assessment & Plan Note - Antoinette Riley PA - 10/28/2019 2:22 PM AUTOMOBILE INSURANCE CLAIM EXAMINER Associated Problem(s): On highly active antiretroviral therapy (HAART) Routine lab monitoring on termite renewal inspector HIV meds to assess for drug toxicity and efficacy. MOBILE INSURANCE CLAIM EXAMINER * Assessment & Plan Note - Antoinette Riley PA - 10/28/2019 2:15 PM AUTOMOBILE INSURANCE CLAIM EXAMINER Associated Problem(s): HIV infection (HCC) Continue Genvoya/Prezista with 100% adherence encouraged to maintain viral suppression and prevent resistance. Undetectable = untransmittable. Risk reduction counseling and adherence counseling provided. Pillbox given. Discussed placing pillbox by toothbrush as visual cue. Discussed setting cell phone alarm as auditory cue. MOBILE INSURANCE CLAIM EXAMINER documented in this encounter Plan of Treatment Not on file documented as of this encounter Procedures Procedure Name Priority Date/Time Associated Diagnosis Comments N. GONORRHOEAE/C. TRACHOMATIS AMPLIFICATION Routine 10/28/2019 11:48 AM AUTOMOBILE INSURANCE CLAIM EXAMINER HIV disease (CMS/HCC) Screening examination for STD (sexually transmitted disease) T-SPOT.TB Routine 10/28/2019 11:48 AM AUTOMOBILE INSURANCE CLAIM EXAMINER HIV disease (CMS/HCC) Healthcare maintenance GLUCOSE, RANDOM (OUTREACH) Routine 10/28/2019 11:48 AM AUTOMOBILE INSURANCE CLAIM EXAMINER HIV disease (CMS/HCC) Long-term use of high-risk medication DIFFERENTIAL AUTO Routine 10/28/2019 11: 48 AM AUTOMOBILE INSURANCE CLAIM EXAMINER HIV disease (CMS/HCC) Long-term use of high-risk medication URINALYSIS WITH REFLEX FOR NEUTROPENIC PATIENT Routine 10/28/2019 11:48 AM AUTOMOBILE INSURANCE CLAIM EXAMINER HIV disease (CMS/HCC) THYROID FUNCTION CASCADE Routine 10/28/2019 11:48 AM AUTOMOBILE INSURANCE CLAIM EXAMINER Other fatigue COMPREHENSIVE METABOLIC PANEL WITHOUT GLUCOSE (OUTREACH) Routine 10/28/2019 11:48 AM AUTOMOBILE INSURANCE CLAIM EXAMINER HIV disease (CMS/HCC) Long-term use of high-risk medication COMPREHENSIVE METABOLIC PANEL (OUTREACH) Routine 10/28/2019 11:48 AM AUTOMOBILE INSURANCE CLAIM EXAMINER HIV disease (CMS/HCC) Long-term use of high-risk medication CBC WITH AUTO DIFFERENTIAL Routine 10/28/2019 11:48 AM AUTOMOBILE INSURANCE CLAIM EXAMINER HIV disease (CMS/HCC) Long-term use of high-risk medication HEPATITIS C ANTIBODY Routine 10/28/2019 11:48 AM AUTOMOBILE INSURANCE CLAIM EXAMINER HIV disease (CMS/HCC) Screening examination for STD (sexually transmitted disease) HIV-1 RNA, QUANTITATIVE, PCR Routine 10/28/2019 11:48 AM AUTOMOBILE INSURANCE CLAIM EXAMINER HIV disease (CMS/HCC) Long-term use of high-risk medication RPR Routine 10/28/2019 11:48 AM AUTOMOBILE INSURANCE CLAIM EXAMINER HIV disease (CMS/HCC) Screening examination for STD (sexually transmitted disease) T-HELPER CELLS (CD4) COUNT Routine 10/28/2019 11:48 AM AUTOMOBILE INSURANCE CLAIM EXAMINER HIV disease (CMS/HCC) Long-term use of high-risk medication TESTOSTERONE, TOTAL AND FREE, SERUM Routine 10/28/2019 11:48 AM AUTOMOBILE INSURANCE CLAIM EXAMINER Other fatigue HEMOGLOBIN A1C Routine 10/28/2019 11:48 AM AUTOMOBILE INSURANCE CLAIM EXAMINER HIV disease (CMS/HCC) Healthcare maintenance LIPID PANEL Routine 10/28/2019 11:48 AM AUTOMOBILE INSURANCE CLAIM EXAMINER HIV disease (CMS/HCC) Healthcare maintenance documented in this encounter Results * Glucose, random (Outreach) (10/28/2019 11:48 AM AUTOMOBILE INSURANCE CLAIM EXAMINER) Glucose 97 70 - 199 mg/dL [facility] Comment: Interpretive Data Fasting glucose >/= [...] 2017. Blood specimen (specimen) 10/28/2019 11:48 AM AUTOMOBILE INSURANCE CLAIM EXAMINER 10/28/2019 3:02 PM AUTOMOBILE INSURANCE CLAIM EXAMINER Antoinette GANNON LAB BLOOD ORDERABLES Final Result Performing Organization Address City/[facility]/ZIP Co de Phone Number [facility] Department [place] [address] * Comprehensive metabolic panel, without glucose (Outreach) (10/28/2019 11:48 AM AUTOMOBILE INSURANCE CLAIM EXAMINER) Sodium 140 135 - 145 mmol/L [facility] Potassium, pl 3.7 3.3 - 4.9 mmol/L [facility] Chloride 105 97 - 110 mmol/L [facility] CO2 27 22 - 32 mmol/L [facility] Anion gap 8 2 - 15 mmol/L [facility] BUN 9 8 - 25 mg/dL [facility] Creatinine 0.87 0.80 - 1.30 mg/dL [facility] Calcium 9.3 8.5 - 10.3 mg/dL [facility] Protein, pl 8.2 6.5 - 8.5 g/dL [facility] Albumin 4.5 3.5 - 5.0 g/dL [facility] Bilirubin, total 0.3 0.1 - 1.2 mg/dL [facility] Alk phos 54 40 - 130 Units/L [facility] AST 24 10 - 50 Units/L [facility] ALT 25 7 - 55 Units/L [facility] Blood specimen (specimen) 10/28/2019 11:48 AM AUTOMOBILE INSURANCE CLAIM EXAMINER 10/28/2019 3:02 PM AUTOMOBILE INSURANCE CLAIM EXAMINER Antoinette GANNON LAB BLOOD ORDERABLES Final Result Performing Organization Address City/[facility]/ZIP Co de Phone Number [facility] Department [place] [address] * Differential, auto (10/28/2019 11:48 AM AUTOMOBILE INSURANCE CLAIM EXAMINER) Neutrophil abs 1.8 1.7 - 6.5 K/cumm [facility] Imm gran abs 0.0 0.0 - 0.1 K/cumm [facility] Lymphocyte abs 2.3 0.8 - 3.3 K/cumm [facility] Monocyte abs 0.4 0.2 - 0.8 K/cumm [facility] Eosinophil abs 0.2 0.0 - 0.5 K/cumm [facility] Basophil abs 0.0 0.0 - 0.1 K/cumm [facility] Neutrophil pct 38.1 % [facility] Comment: Interpretive Data Percent cell count reference ranges are not reported, since discordance with absolute values may lead to misinterpretation of CBC data. Current Interpretive Data was last revised on 2018. Imm gran pct 0.2 % [facility] Comment: Interpretive Data Percent cell count reference ranges are not reported, since discordance with absolute values may lead to misinterpretation of CBC data. Current Interpretive Data was last revised on 2018. Lymphocyte pct 49.7 % [facility] Comment: Interpretive Data Percent cell count reference ranges are not reported, since discordance with absolute values may lead to misinterpretation of CBC data. Current Interpretive Data was last revised on 2018. Monocyte pct 7.5 % [facility] Comment: Interpretive Data Percent cell count reference ranges are not reported, since discordance with absolute values may lead to misinterpretation of CBC data. Current Interpretive Data was last revised on 2018. Eosinophil pct 3.9 % [facility] Comment: Interpretive Data Percent cell count reference ranges are not reported, since discordance with absolute values may lead to misinterpretation of CBC data. Current Interpretive Data was last revised on 2018. Basophil pct 0.6 % [facility] Comment: Interpretive Data Percent cell count reference ranges are not reported, since discordance with absolute values may lead to misinterpretation of CBC data. Current Interpretive Data was last revised on 2018. Blood specimen (specimen) 10/28/2019 11:48 AM AUTOMOBILE INSURANCE CLAIM EXAMINER 10/28/2019 3:02 PM AUTOMOBILE INSURANCE CLAIM EXAMINER Antoinette GANNON LAB BLOOD ORDERABLES Final Result [facility] [address] [facility] Department [place] [address] * Testosterone, Total and Free, Serum (10/28/2019 11:48 AM AUTOMOBILE INSURANCE CLAIM EXAMINER) Testosterone 441 240 - 950 ng/dL [facility] Comment: ADDITIONAL INFORMATION Testing performed by Liquid Chromatography-Tandem Mass Spectrometry (LC-MS/MS). This test was developed and its performance characteristics determined by [facility] in a manner consistent with CLIA requirements. This test has not been cleared or approved by the U.S. Food and Drug Administration. Test Performed by: [facility] - [address] [address] Telephone Betting Clerk: Bo Hair M.D. Ph.D.; CLIA# [id number] Testosterone, free 7.06 4.26 - 16.4 ng/dL [facility] Comment: ADDITIONAL INFORMATION Testing performed by [facility]. This test was developed and its performance characteristics determined by [facility] in a manner consistent with CLIA requirements. This test has not been cleared or approved by the U.S. Food and Drug Administration. Blood specimen (specimen) 10/28/2019 11:48 AM AUTOMOBILE INSURANCE CLAIM EXAMINER 10/28/2019 4:36 PM AUTOMOBILE INSURANCE CLAIM EXAMINER Antoinette GANNON LAB BLOOD ORDERABLES Final Result [facility] Department [place] [address] * TSH reflex to free T4 (10/28/2019 11:48 AM AUTOMOBILE INSURANCE CLAIM EXAMINER) TSH 1.70 0.30 - 4.20 mcIUnit/mL [facility] Blood specimen (specimen) 10/28/2019 11:48 AM AUTOMOBILE INSURANCE CLAIM EXAMINER 10/28/2019 3:02 PM AUTOMOBILE INSURANCE CLAIM EXAMINER Antoinette GANNON LAB BLOOD ORDERABLES Final Result Performing Organization Address [facility] [place] [address] * Hepatitis C antibody (10/28/2019 11:48 AM AUTOMOBILE INSURANCE CLAIM EXAMINER) [facility] Hep C Ab Nonreactive Nonreactive [facility] Comment: Interpretive Data Positive results should be confirmed by a molecular method. If positive, a second separately collected sample should be submitted for Hepatitis C Virus (HCV) RNA Detection and Quantitation by Real-Time Reverse [place]-PCR (RT-PCR). Current interpretive data was last revised on 2016. Blood specimen (specimen) 10/28/2019 11:48 AM AUTOMOBILE INSURANCE CLAIM EXAMINER 10/28/2019 3:02 PM AUTOMOBILE INSURANCE CLAIM EXAMINER Antoinette GANNON LAB MICROBIOLOGY - GENERAL ORDERABLES Edited Result - Final Performing Organization Address [facility] [place] [address] * T-SPOT.TB (10/28/2019 11:48 AM AUTOMOBILE INSURANCE CLAIM EXAMINER) [facility] T-SPOT.TB Negative Negative [facility] Comment: Limitations from the T-SPOT.TB Package Insert [...] with T-SPOT.TB test. T-Spot testing performed by [facility], [address] [place] [address]. [id number] A negative test result does not exclude [...] test. T-SPOT.TB Panel A Spot Count 0 [facility] T-SPOT.TB Panel B Spot Count 0 [facility] T-SPOT.TB Negative Control Passed [facility] T-SPOT.TB Positive Control Passed [facility] Blood specimen (specimen) 10/28/2019 11:48 AM AUTOMOBILE INSURANCE CLAIM EXAMINER 10/28/2019 3:31 PM AUTOMOBILE INSURANCE CLAIM EXAMINER us Antoinette GANNON LAB MICROBIOLOGY - GENERAL ORDERABLES Final Result [facility] [address] [facility] Department [place] [address] * N. gonorrhoeae/C. trachomatis Amplification Urine (10/28/2019 11:48 AM AUTOMOBILE INSURANCE CLAIM EXAMINER) Pathologist [facility] C. trachomatis Not Detected Not Detected [facility] N. gonorrhoeae Not Detected Not Detected [facility] Comment: Interpretive Data Testing performed by the [facility]. This assay detects Chlamydia trachomatis and Neisseria gonorrhoeae by nucleic acid amplification testing (NAAT). This test is approved by the [facility] Food and Drug Administration and the performance characteristics have been verified by the laboratory. The performance characteristics of this test have not been evaluated in individuals less than 14 years of age. Current Interpretive Data was last revised on 2018. Urine (None) 10/28/2019 11:4 8 AM AUTOMOBILE INSURANCE CLAIM EXAMINER 10/28/2019 6:06 PM AUTOMOBILE INSURANCE CLAIM EXAMINER Antoinette GANNON LAB MICROBIOLOGY - GENERAL ORDERABLES Final Result [facility] [address] [facility] Department [place] [address] * Urinalysis with reflex for neutropenic patient Urine (10/28/2019 11:48 AM AUTOMOBILE INSURANCE CLAIM EXAMINER) Pathologist [facility] Color, ur Yellow Yellow [facility] Clarity, ur Clear Clear [facility] Specific gravity, ur 1.019 1.010 - 1.025 [facility] pH, urine [address] [facility] Protein, ur ql Negative Negative [facility] Glucose, ur ql Negative Negative [facility] Ketones, ur Negative Negative [facility] Bilirubin, ur Negative Negative [facility] Blood, ur Negative Negative [facility] Urobilinogen, ur <2.0 <2.0 mg/dL [facility] Nitrite, ur Negative Negative [facility] Leukocyte esterase, ur Negative Negative [facility] Urine 10/28/2019 11:4 8 AM AUTOMOBILE INSURANCE CLAIM EXAMINER 10/28/2019 3:03 PM AUTOMOBILE INSURANCE CLAIM EXAMINER Narrative [facility] - 10/28/2019 3:30 PM AUTOMOBILE INSURANCE CLAIM EXAMINER ?? Urine pH is affected by diet, medications, systemic acid-base disturbances, and renal tubular function. ??pH may affect urinary stone formation. ??For example, urine pH below 6.0 may help reduce the tendency for calcium phosphate stones and pH greater than 6.0 may reduce the tendency for uric acid stone formation. Source: [facility] [place]. Last revised 11-22-2017 Antoinette GANNON LAB MICROBIOLOGY - GENERAL ORDERABLES Final Result Performing Organization Address [facility] Phone Number [facility] [place] [address] * (ABNORMAL) Hemoglobin A1c (10/28/2019 11:48 AM AUTOMOBILE INSURANCE CLAIM EXAMINER) Hgb A1C 6.0(H) 4.0 - 5.6 % [facility] Estimated Average Glucose 126 mg/dL [facility] Comment: The ADA recommends reporting an estimated Average Glucose (eAG) with all Hemoglobin A1c results using the equation derived from a study of 507 normal and diabetic adults. ??Minority populations were underrepresented and children were not included. ?? (Diabetes Care 31:3437-4125, 2008). ??The eAG is not equivalent to a fasting glucose. Blood specimen (specimen) 10/28/2019 11:48 AM AUTOMOBILE INSURANCE CLAIM EXAMINER 10/28/2019 3:02 PM AUTOMOBILE INSURANCE CLAIM EXAMINER Antoinette GANNON LAB BLOOD ORDERABLES Final Result Performing Organization Address [facility] Phone Number [facility] [place] [address] * (ABNORMAL) Lipid panel (10/28/2019 11:48 AM AUTOMOBILE INSURANCE CLAIM EXAMINER) Cholesterol 224(H) 30 - 199 mg/dL [facility] Comment: Interpretive Data Ages < [...] revised on 2018. Triglycerides 121 <=149 mg/dL [facility] Comment: Interpretive Data Ages < [...] revised on 2018. HDL 39(L) >=40 mg/dL [facility] Comment: Interpretive Data Ages < [...] 2018. LDL, calculated 161(H) <=129 mg/dL [facility] Comment: Interpretive Data Ages < [...] on 2018. Non-HDL Cholesterol 185 mg/dL [facility] Comment: Interpretive Data Ages < [...] [place] Blood specimen (specimen) 10/28/2019 11:48 AM AUTOMOBILE INSURANCE CLAIM EXAMINER 10/28/2019 3:02 PM AUTOMOBILE INSURANCE CLAIM EXAMINER Antoinette GANNON LAB BLOOD ORDERABLES Final Result [facility] [place] [address] * RPR (10/28/2019 11:48 AM AUTOMOBILE INSURANCE CLAIM EXAMINER) [facility] RPR Nonreactive Nonreactive [facility] Blood specimen (specimen) 10/28/2019 11:48 AM AUTOMOBILE INSURANCE CLAIM EXAMINER 10/28/2019 3:02 PM AUTOMOBILE INSURANCE CLAIM EXAMINER Antoinette GANNON LAB MICROBIOLOGY - GENERAL ORDERABLES Final Result Performing Organization Address City/[facility]/[place] [address] * (ABNORMAL) HIV-1 RNA PCR, quantitative (10/28/2019 11:48 AM AUTOMOBILE INSURANCE CLAIM EXAMINER) [facility] HIV-1 RNA Detected( A) [facility] Comment: Interpretive Data: The quantifiable range of this assay is 20 copies/mL to 10,000,000 copies/mL (1.30 log copies/mL to 7.00 log copies/mL). ??Testing was performed by the [employer] AmpliPrep/NIELS TaqMan HIV-1 Test version 2.0 ([employer] Testing performed at [facility] Current Interpretive Data was last revised on 2015. HIV-1 RNA, copies/mL 469 copies/mL [facility] HIV-1 RNA, log 2.67 log cps/mL [facility] Blood specimen (specimen) 10/28/2019 11:48 AM AUTOMOBILE INSURANCE CLAIM EXAMINER 10/28/2019 5:12 PM AUTOMOBILE INSURANCE CLAIM EXAMINER Antoinette GANNON LAB MICROBIOLOGY - GENERAL ORDERABLES Final Result Performing Organization Address City/[facility]/[place] [address] * (ABNORMAL) T-helper cells (CD4) count (10/28/2019 11:48 AM AUTOMOBILE INSURANCE CLAIM EXAMINER) [facility] CD4 pct 22(L) 31 - 64 % [facility] CD4 Absolute 442 365 - 1,294 cells/mcL [facility] Blood specimen (specimen) 10/28/2019 11:48 AM AUTOMOBILE INSURANCE CLAIM EXAMINER 10/28/2019 3:02 PM AUTOMOBILE INSURANCE CLAIM EXAMINER Antoinette GANNON LAB BLOOD ORDERABLES Final Result Performing Organization Address City/[facility] Co de Phone Number [facility] Department [place] [address] * (ABNORMAL) CBC with auto differential (10/28/2019 11:48 AM AUTOMOBILE INSURANCE CLAIM EXAMINER) Pathologist [facility] WBC 4.6 3.8 - 9.9 K/cumm [facility] Hgb 12.6(L) 13.0 - 17.5 g/dL [facility] Hct 38.8(L) 38.9 - 50.3 % [facility] Plt 263 150 - 400 K/cumm [facility] MPV 10.4 9.1 - 12.3 fL [facility] RBC 4.70 4.30 - 5.80 M/cumm [facility] MCV 82.6 81.3 - 96.4 fL [facility] MCH 26.8(L) 27.1 - 33.3 pg [facility] MCHC 32.5 32.3 - 35.7 g/dL [facility] RDW CV 13.2 11.1 - 14.9 % [facility] RDW SD 39.8 35.7 - 48.1 fL [facility] NRBC abs 0.00 0.00 - 0.01 K/cumm [facility] Blood specimen (specimen) 10/28/2019 11:48 AM AUTOMOBILE INSURANCE CLAIM EXAMINER 10/28/2019 3:02 PM AUTOMOBILE INSURANCE CLAIM EXAMINER Antoinette GANNON LAB BLOOD ORDERABLES Final Result Performing Organization Address City/[facility]/ZIP Co de Phone Number [facility] Department [place] [address] documented in this encounter Visit Diagnoses Diagnosis [...] 10/28/2019 documented in this encounter Care Teams Package Maker Relationship Specialty Start Date End Date Gucci Vilchis MD PCP - General 04/16/17 08/08/22 [facility] Nanotechnician 10/30/18 12/08/21 documented as of this encounter
== END 2024-11-15 14:03 | disposition home or self-care (01) ==
PROVIDERS: Emergency Provider Emergency Medicine; PCP Family Medicine
DX: T78.3XXA Angioneurotic edema, initial encounter (principal); Z21 Asymptomatic human immunodeficiency virus [HIV] infection status; Z79.899 Other long term (current) drug therapy; Z20.822 Contact with and (suspected) exposure to COVID-19
CPT/HCPCS: 36415; 86308; 87637; 87651; 96372; 96374; 96375; 99284; J0171; J1200; J1885; J2919